=== PATIENT | male | born 1995 | race African-American/Black ===

== ENCOUNTER 2020-07-01 07:07 | Outpatient (REF) | payer OTHER, SELFPAY | END 2020-07-01 07:08 | disposition home or self-care (01) | LOC: HO.LAB 07:07 | PROVIDERS: Visit Provider Internal Medicine | DX: Z20.828 Contact with and (suspected) exposure to other viral communicable diseases (principal) | CPT/HCPCS: C9803; U0003 ==

== ENCOUNTER 2020-10-04 16:20 | Inpatient (IN) | payer OTHER, SELFPAY ==
[2020-10-04 16:28] VITALS: BP 145/80; PULSE 92; RESP 20; TEMP 36.3; O2SAT 97; BMI 37.5
[2020-10-04 16:45] LABS: Glucose, Whole Blood 409 mg/dL (60-115)
[2020-10-04 18:14] LABS: MANUAL DIFF FLAG NO
[2020-10-04 18:16] LABS: Basophils Percent Auto 0.5 % (0-2); Eosinophils Percent Auto 0.5 % (0-4); Hematocrit 47.4 % (42-52); Hemoglobin 16.5 g/dl (14.0-18.0); Imm Gran Abs Auto 0.04 X10*3/uL (0.00-0.03); Imm Gran Pct Auto 0.5 % (0.0-0.4); Lymphocytes Absolute Auto 1.3 X10*3/uL (1.2-4.9); Lymphocytes Percent Auto 15.9 % (20-40); Mean Corpuscular HGB Conc 34.8 g/dl (31.0-36.0); Mean Corpuscular Hemoglobin 26.5 pg (27.0-33.0); Mean Corpuscular Volume 76.2 fL (80-98); Mean Platelet Volume 11.1 fL (9.4-12.4); Monocytes Absolute Auto 0.7 X10*3/uL (0.1-1.2); Monocytes Percent Auto 8.4 % (2-11); Neutrophils Absolute Auto 6.2 X10*3/uL (2.0-8.3); Neutrophils Percent Auto 74.2 % (45-73); Platelet Count 326 X10*3/uL (160-400); Red Blood Count 6.22 X10*6/uL (4.60-5.80); Red Cell Distribution Width 12.9 % (11.0-16.0); White Blood Count 8.3 X10*3/uL (4.8-10.8)
[2020-10-04 18:21] LABS: Glucose, Whole Blood 379 mg/dL (60-115)
--- NOTE | 2020-10-04 18:37 | ED_ITS ---
HPI - General Adult General Chief complaint: Weakness <GRAHAM Iverson Last Filed: 10/05/20 02:23> Stated complaint: hbs, back pain,weakness <GRAHAM Iverson Last Filed: 10/05/20 02:23> Time Seen by Provider: 10/04/20 18:20 <GRAHAM Iverson Last Filed: 10/05/20 02:23> Source: patient <GRAHAM Iverson Last Filed: 10/05/20 02:23> Mode of arrival: ambulatory <GRAHAM Iverson Last Filed: 10/05/20 02:23> Limitations: no limitations <GRAHAM Iverson Last Filed: 10/05/20 02:23> History of Present Illness HPI narrative: Patient presents to the ED for dizziness described as fatigue/weakness, increased thirst, increased urination, and back pain since yesterday. Patient's grandmother checked his fingerstick and found to have glucose over 400. Patient has no known history of diabetes. Patient's grandmother states his grandparents have diabetes. <GRAHAM Iverson - Last Filed: 10/05/20 02:23> Related Data Allergies/adverse reactions: Allergies Allergy/AdvReac Type Severity Reaction Status Date / Time shellfish derived Allergy Intermediate RASH Verified 10/05/20 00:24 [SHELLFISH DERIVED] <GRAHAM Iverson - Last Filed: 10/05/20 02:23> Review of Systems Review of Systems: Yes all other systems are reviewed and are negative <GRAHAM Iverson Last Filed: 10/05/20 02:23> Constitutional: Constitutional: Reports as per HPI, Reports no additional constitutional complaints and Reports fatigue <GRAHAM Iverson Last Filed: 10/05/20 02:23> Eyes: Eyes: Reports as per HPI and Reports no additional eye complaints <GRAHAM Iverson Last Filed: 10/05/20 02:23> ENT: Reports system reviewed and no additional complaints, except as documented and Reports as per HPI <GRAHAM Iverson Last Filed: 10/05/20 02:23> Cardiovascular: Cardiovascular: Reports as per HPI and Reports no additional cardiovascular complaints <GRAHAM Iverson - Last Filed: 10/05/20 02:23> Respiratory: Respiratory: Reports as per HPI and Reports no additional respiratory complaints <GRAHAM Iverson - Last Filed: 10/05/20 02:23> Gastrointestinal: Gastrointestinal: Reports as per HPI and Reports no additional gastrointestinal complaints <GRAHAM Iverson - Last Filed: 10/05/20 02:23> Comments: Increased thirst <GRAHAM Iverson - Last Filed: 10/05/20 02:23> Genitourinary: Genitourinary: Reports no additional male genitourinary complaints and Reports as per HPI <GRAHAM Iverson - Last Filed: 10/05/20 02:23> Comments: Increased urinary frequency <GRAHAM Iverson - Last Filed: 10/05/20 02:23> Musculoskeletal: Musculoskeletal: Reports no additional musculoskeletal complaints and Reports as per HPI <GRAHAM Iverson Last Filed: 10/05/20 02:23> Neurologic: Reports system reviewed and no additional complaints, except as documented and Reports as per HPI <GRAHAM Iverson Last Filed: 10/05/20 02:23> Psychiatric: Psychiatric: Reports no additional psychiatric complaints and Reports as per HPI <GRAHAM Iverson - Last Filed: 10/05/20 02:23> Endocrine: Endocrine: Reports fatigue <GRHAAM Iverson - Last Filed: 10/05/20 02:23> [facility] Past Medical History Medical History: Medical History (Updated 10/05/20 @ 02:22 by GRAHAM Iverson) Asthma No known health problems <GRAHAM Iverson - Last Filed: 10/05/20 02:23> Social History Social History: Social History Advance Directives: No Advance Directives Information Provided: No <GRAHAM Iverson Last Filed: 10/05/20 02:23> Physical Exam Vital Signs: Vital Signs: Last Vital Signs Temp 97.5 F 10/05/20 04:09 Pulse 67 10/05/20 06:06 Resp 16 10/05/20 06:06 BP 130/49 L 10/05/20 06:06 Pulse Ox 97 10/05/20 06:06 Body Mass Index 37.5 <GRAHAM Iverson - Last Filed: 10/05/20 02:23> Vital Signs: Last Vital Signs Temp 97.5 F 10/05/20 04:09 Pulse 67 10/05/20 06:06 Resp 16 10/05/20 06:06 BP 130/49 L 10/05/20 06:06 Pulse Ox 97 10/05/20 06:06 Body Mass Index 37.5 <Azalea Jones MD - Last Filed: 10/05/20 06:35> Const: General: cooperative, healthy appearing, comfortable, no acute distress, well developed, alert, awake and Physically active <GRAHAM Iverson - Last Filed: 10/05/20 02:23> Orientation/consciousness: patient oriented x3 <GRAHAM Iverson Last Filed: 10/05/20 02:23> HENMT: Head: Yes normal to inspection, Yes No palpable skull fracture present, Yes normocephalic and Yes atraumatic <GRAHAM Iverson Last Filed: 10/05/20 02:23> Eyes: General: appearance normal, both eyes and all related structures <GRAHAM Iverson Last Filed: 10/05/20 02:23> Neck: Neck: Yes normal visual inspection, Yes full ROM, Yes no lymphadenopathy, Yes no meningeal signs, Yes trachea midline, Yes supple and No tender <GRAHAM Iverson Last Filed: 10/05/20 02:23> Chest: Chest palpation & inspection: normal inspection of the chest and normal palpation of entire chest wall <GRAHAM Iverson Last Filed: 10/05/20 02:23> Resp: Effort & Inspection: normal respiratory effort and able to speak in complete sentences <GRAHAM Iverson Last Filed: 10/05/20 02:23> Auscultation: clear to auscultation bilaterally <GRAHAM Iverson Last Filed: 10/05/20 02:23> Cardio: Jugular venous distension: no JVD <GRAHAM Iverson Last Filed: 10/05/20 02:23> Heart sounds: S1 normal heart sound present and S2 normal heart sound present <GRAHAM Iverson Last Filed: 10/05/20 02:23> GI: Inspection: Yes normal to inspection and No abdominal wall ecchymosis <GRAHAM Iverson Last Filed: 10/05/20 02:23> Palpation (GI): Soft to palpation, not firm, nontender, no guarding and not rigid <GRAHAM Iverson Last Filed: 10/05/20 02:23> : General: No CVA tenderness and Yes no CVA tenderness <GRAHAM Iverson Last Filed: 10/05/20 02:23> Back/Spine/Pelvis: Back: no CVA tenderness, No CVA tenderness and No back tenderness <GRAHAM Iverson - Last Filed: 10/05/20 02:23> Skin: General skin exam: no rashes or lesions noted and elasticity normal <GRAHAM Iverson Last Filed: 10/05/20 02:23> Neuro: General: patient oriented x3, no meningeal signs and CN's II-XI intact bilaterally <GRAHAM Iverson - Last Filed: 10/05/20 02:23> Cranial nerves: Yes CN's II-XII intact bilaterally <GRAHAM Iverson Last Filed: 10/05/20 02:23> Extrem: General: Yes normal to inspection and Yes full ROM <GRAHAM Iverson Last Filed: 10/05/20 02:23> Psych: Appearance: grossly normal, well kempt and not disheveled <GRAHAM Iverson Last Filed: 10/05/20 02:23> Course Course Course Narrative: Patient POC indicates new onset diabetes. Will have basic labs to see if patient is in DKA. Will hydrate. IV fluids. <GRAHAM Iverson Last Filed: 10/05/20 02:23> Reevaluation(s) Reevaluation #1: Initial chemistry shows patient was in DKA. Patient was given 4 L of IV fluids with insulin and repeat chemistry showed the patient was still in DKA. Spoke with hospitalist recommended patient be placed on insulin drip and to close the anion gap in the ER and then patient can go to the floor. Patient is not any distress. Insulin drip started at 6 units/hour <GRAHAM Iverson Last Filed: 10/05/20 02:23> Patient placed in physician observation because the patient needed more time for medication to work. At the time observation was started the patient's vital signs were stable, patient is alert and oriented, neuro: Nonfocal, CV RRR, lungs clear. Patient reports that the headache and dizziness that he presented with have resolved. <Azalea Jones MD - Last Filed: 10/05/20 06:35> Time: 03:45 <Azalea Jones MD - Last Filed: 10/05/20 06:35> Reevaluation #2: Case signed out to Dr. Jones to follow repeat CMP to see if anion gap close. Dr. Lindsey recommended two CMP with closed anion gaps before being admitted to [facility]. patient to be admitted to the hospital <GRAHAM Iverson - Last Filed: 10/05/20 02:23> The gap has closed, hospitalist was notified, will need to repeat lab work in 2 hours and demonstrate that the patient continues to improve. Sign-out given to Dr. Lawton. <Azalea Jones MD - Last Filed: 10/05/20 06:35> Time: 06:25 <Azalea Jones MD - Last Filed: 10/05/20 06:35> Medical Decision Making MDM Narrative Medical decision making narrative: New onset Diabetes. mild. DKA <GRAHMA Iverson - Last Filed: 10/05/20 02:23> Lab Data Result diagrams: : 10/04/20 18:08 10/05/20 05:45 <GRAHAM Iverson - Last Filed: 10/05/20 02:23> Labs: Lab Results 10/04/20 10/04/20 10/04/20 Range/Units 16:36 18:08 18:08 WBC 8.3 (4.8-10.8) X10*3/uL RBC 6.22 H (4.60-5.80) X10*6/uL Hgb 16.5 (14.0-18.0) g/dl Hct 47.4 (42-52) % MCV 76.2 L (80-98) fL MCH 26.5 L (27.0-33.0) pg MCHC 34.8 (31.0-36.0) g/dl RDW 12.9 (11.0-16.0) % Plt Count 326 (160-400) X10*3/uL MPV 11.1 (9.4-12.4) fL Immature Gran % (Auto) 0.5 H (0.0-0.4) % Neut % (Auto) 74.2 H (45-73) % Lymph % (Auto) 15.9 L (20-40) % [place] % (Auto) 8.4 (2-11) % Eos % (Auto) 0.5 (0-4) % Baso % (Auto) 0.5 (0-2) % Lymph # (Auto) 1.3 (1.2-4.9) X10*3/uL [place] # (Auto) 0.7 (0.1-1.2) X10*3/uL Eos # (Auto) 0.0 (0.0-0.4) X10*3/uL Baso # (Auto) 0.0 (0.0-0.2) X10*3/uL Abs Immat Gran (auto) 0.04 H (0.00-0.03) X10*3/uL Absolute Neuts (auto) 6.2 (2.0-8.3) X10*3/uL Absolute Nucleated RBC 0.000 (0.0-0.012) X10*3/uL Nucleated RBC % (auto) 0.0 (0.0-0.2) /100WBC Hold Purple Top SEE NOTE VBG pH (7.32-7.43) VBG pCO2 mmHg VBG pO2 mmHg VBG HCO3 (22-26) mmol/L VBG O2 Saturation % VBG Base Excess mmol/L Sodium (135-145) mmol/L Potassium (3.3-5.1) mmol/L Chloride (96-108) mmol/L Carbon Dioxide (22-29) mmol/L Anion Gap (12-20) BUN (9-16) mg/dL Creatinine (0.5-1.4) mg/dL Estim Creat Clear Calc Estimated GFR POC Glucose 409 H* (60-115) mg/dL Random Glucose (60-115) mg/dL Calcium (8.4-10.2) mg/dL Total Bilirubin (0.0-1.0) mg/dL AST (5-37) U/L ALT (0-40) U/L Alkaline Phosphatase (39-117) U/L Total Protein (6.5-8.0) g/dL Albumin (3.5-5.0) g/dL Urine Color Urine Appearance Urine pH (5.0-8.0) Ur Specific [place] (1.005-1.025) Urine Protein (NEG-TRACE) MG/DL Urine Glucose (UA) (NEG) MG/DL Urine Ketones (NEG) MG/DL Urine Blood (NEG) Urine Nitrite (NEG) Ur Leukocyte Esterase (NEG) Urine RBC (0) /HPF Urine WBC (0-4) /HPF Ur Squamous Epith Cells /LPF Urine Bacteria /LPF Hyaline Casts /LPF Granular Casts /LPF Urine Mucus /LPF Acetone, Qual (Negative) 10/04/20 10/04/20 10/04/20 Range/Units 18:17 18:54 18:54 WBC (4.8-10.8) X10*3/uL RBC (4.60-5.80) X10*6/uL Hgb (14.0-18.0) g/dl Hct (42-52) % MCV (80-98) fL MCH (27.0-33.0) pg MCHC (31.0-36.0) g/dl RDW (11.0-16.0) % Plt Count (160-400) X10*3/uL MPV (9.4-12.4) fL Immature Gran % (Auto) (0.0-0.4) % Neut % (Auto) (45-73) % Lymph % (Auto) (20-40) % [place] % (Auto) (2-11) % Eos % (Auto) (0-4) % Baso % (Auto) (0-2) % Lymph # (Auto) (1.2-4.9) X10*3/uL [place] # (Auto) (0.1-1.2) X10*3/uL Eos # (Auto) (0.0-0.4) X10*3/uL Baso # (Auto) (0.0-0.2) X10*3/uL Abs Immat Gran (auto) (0.00-0.03) X10*3/uL Absolute Neuts (auto) (2.0-8.3) X10*3/uL Absolute Nucleated RBC (0.0-0.012) X10*3/uL Nucleated RBC % (auto) (0.0-0.2) /100WBC Hold Purple Top VBG pH (7.32-7.43) VBG pCO2 mmHg VBG pO2 mmHg VBG HCO3 (22-26) mmol/L VBG O2 Saturation % VBG Base Excess mmol/L Sodium 128 L (135-145) mmol/L Potassium 4.1 (3.3-5.1) mmol/L Chloride 95 L (96-108) mmol/L Carbon Dioxide 11 L (22-29) mmol/L Anion Gap 26 H (12-20) BUN 13 (9-16) mg/dL Creatinine 1.47 H (0.5-1.4) mg/dL Estim Creat Clear Calc 115.2 Estimated GFR 59 POC Glucose 379 H* (60-115) mg/dL Random Glucose 337 H (60-115) mg/dL Calcium 8.2 L (8.4-10.2) mg/dL Total Bilirubin (0.0-1.0) mg/dL AST (5-37) U/L ALT (0-40) U/L Alkaline Phosphatase (39-117) U/L Total Protein (6.5-8.0) g/dL Albumin (3.5-5.0) g/dL Urine Color Urine Appearance Urine pH (5.0-8.0) Ur Specific [place] (1.005-1.025) Urine Protein (NEG-TRACE) MG/DL Urine Glucose (UA) (NEG) MG/DL Urine Ketones (NEG) MG/DL Urine Blood (NEG) Urine Nitrite (NEG) Ur Leukocyte Esterase (NEG) Urine RBC (0) /HPF Urine WBC (0-4) /HPF Ur Squamous Epith Cells /LPF Urine Bacteria /LPF Hyaline Casts /LPF Granular Casts /LPF Urine Mucus /LPF Acetone, Qual Moderate H (Negative) 10/04/20 10/04/20 10/04/20 Range/Units 19:52 20:04 20:07 WBC (4.8-10.8) X10*3/uL RBC (4.60-5.80) X10*6/uL Hgb (14.0-18.0) g/dl Hct (42-52) % MCV (80-98) fL MCH (27.0-33.0) pg MCHC (31.0-36.0) g/dl RDW (11.0-16.0) % Plt Count (160-400) X10*3/uL MPV (9.4-12.4) fL Immature Gran % (Auto) (0.0-0.4) % Neut % (Auto) (45-73) % Lymph % (Auto) (20-40) % [place] % (Auto) (2-11) % Eos % (Auto) (0-4) % Baso % (Auto) (0-2) % Lymph # (Auto) (1.2-4.9) X10*3/uL [place] # (Auto) (0.1-1.2) X10*3/uL Eos # (Auto) (0.0-0.4) X10*3/uL Baso # (Auto) (0.0-0.2) X10*3/uL Abs Immat Gran (auto) (0.00-0.03) X10*3/uL Absolute Neuts (auto) (2.0-8.3) X10*3/uL Absolute Nucleated RBC (0.0-0.012) X10*3/uL Nucleated RBC % (auto) (0.0-0.2) /100WBC Hold Purple Top VBG pH 7.22 L (7.32-7.43) VBG pCO2 25 mmHg VBG pO2 33 mmHg VBG HCO3 11 L (22-26) mmol/L VBG O2 Saturation 56.0 % VBG Base Excess -14.5 mmol/L Sodium (135-145) mmol/L Potassium (3.3-5.1) mmol/L Chloride (96-108) mmol/L Carbon Dioxide (22-29) mmol/L Anion Gap (12-20) BUN (9-16) mg/dL Creatinine (0.5-1.4) mg/dL Estim Creat Clear Calc Estimated GFR POC Glucose 312 H (60-115) mg/dL Random Glucose (60-115) mg/dL Calcium (8.4-10.2) mg/dL Total Bilirubin (0.0-1.0) mg/dL AST (5-37) U/L ALT (0-40) U/L Alkaline Phosphatase (39-117) U/L Total Protein (6.5-8.0) g/dL Albumin (3.5-5.0) g/dL Urine Color YELLOW Urine Appearance CLEAR Urine pH 5.5 (5.0-8.0) Ur Specific [place] >= 1.030 H (1.005-1.025) Urine Protein 2+ H (NEG-TRACE) MG/DL Urine Glucose (UA) 500 H (NEG) MG/DL Urine Ketones >=80 (NEG) MG/DL Urine Blood 1+ H (NEG) Urine Nitrite NEG (NEG) Ur Leukocyte Esterase NEG (NEG) Urine RBC 0-2 (0) /HPF Urine WBC 1-4 (0-4) /HPF Ur Squamous Epith Cells 1+ /LPF Urine Bacteria TRACE /LPF Hyaline Casts 5-9 /LPF Granular Casts 0-2 /LPF Urine Mucus 1+ /LPF Acetone, Qual (Negative) 10/04/20 10/04/20 10/04/20 Range/Units 20:51 22:07 22:07 WBC (4.8-10.8) X10*3/uL RBC (4.60-5.80) X10*6/uL Hgb (14.0-18.0) g/dl Hct (42-52) % MCV (80-98) fL MCH (27.0-33.0) pg MCHC (31.0-36.0) g/dl RDW (11.0-16.0) % Plt Count (160-400) X10*3/uL MPV (9.4-12.4) fL Immature Gran % (Auto) (0.0-0.4) % Neut % (Auto) (45-73) % Lymph % (Auto) (20-40) % [place] % (Auto) (2-11) % Eos % (Auto) (0-4) % Baso % (Auto) (0-2) % Lymph # (Auto) (1.2-4.9) X10*3/uL [place] # (Auto) (0.1-1.2) X10*3/uL Eos # (Auto) (0.0-0.4) X10*3/uL Baso # (Auto) (0.0-0.2) X10*3/uL Abs Immat Gran (auto) (0.00-0.03) X10*3/uL Absolute Neuts (auto) (2.0-8.3) X10*3/uL Absolute Nucleated RBC (0.0-0.012) X10*3/uL Nucleated RBC % (auto) (0.0-0.2) /100WBC Hold Purple Top VBG pH (7.32-7.43) VBG pCO2 mmHg VBG pO2 mmHg VBG HCO3 (22-26) mmol/L VBG O2 Saturation % VBG Base Excess mmol/L Sodium 131 L (135-145) mmol/L Potassium 4.6 (3.3-5.1) mmol/L Chloride 102 (96-108) mmol/L Carbon Dioxide 10 L* (22-29) mmol/L Anion Gap 24 H (12-20) BUN 12 (9-16) mg/dL Creatinine 1.34 (0.5-1.4) mg/dL Estim Creat Clear Calc 126.4 Estimated GFR > 60 POC Glucose 279 H (60-115) mg/dL Random Glucose 279 H (60-115) mg/dL Calcium 7.4 L D (8.4-10.2) mg/dL Total Bilirubin (0.0-1.0) mg/dL AST (5-37) U/L ALT (0-40) U/L Alkaline Phosphatase (39-117) U/L Total Protein (6.5-8.0) g/dL Albumin (3.5-5.0) g/dL Urine Color Urine Appearance Urine pH (5.0-8.0) Ur Specific [place] (1.005-1.025) Urine Protein (NEG-TRACE) MG/DL Urine Glucose (UA) (NEG) MG/DL Urine Ketones (NEG) MG/DL Urine Blood (NEG) Urine Nitrite (NEG) Ur Leukocyte Esterase (NEG) Urine RBC (0) /HPF Urine WBC (0-4) /HPF Ur Squamous Epith Cells /LPF Urine Bacteria /LPF Hyaline Casts /LPF Granular Casts /LPF Urine Mucus /LPF Acetone, Qual Moderate H (Negative) 10/05/20 10/05/20 10/05/20 Range/Units 00:42 01:46 02:21 WBC (4.8-10.8) X10*3/uL RBC (4.60-5.80) X10*6/uL Hgb (14.0-18.0) g/dl Hct (42-52) % MCV (80-98) fL MCH (27.0-33.0) pg MCHC (31.0-36.0) g/dl RDW (11.0-16.0) % Plt Count (160-400) X10*3/uL MPV (9.4-12.4) fL Immature Gran % (Auto) (0.0-0.4) % Neut % (Auto) (45-73) % Lymph % (Auto) (20-40) % [place] % (Auto) (2-11) % Eos % (Auto) (0-4) % Baso % (Auto) (0-2) % Lymph # (Auto) (1.2-4.9) X10*3/uL [place] # (Auto) (0.1-1.2) X10*3/uL Eos # (Auto) (0.0-0.4) X10*3/uL Baso # (Auto) (0.0-0.2) X10*3/uL Abs Immat Gran (auto) (0.00-0.03) X10*3/uL Absolute Neuts (auto) (2.0-8.3) X10*3/uL Absolute Nucleated RBC (0.0-0.012) X10*3/uL Nucleated RBC % (auto) (0.0-0.2) /100WBC Hold Purple Top VBG pH (7.32-7.43) VBG pCO2 mmHg VBG pO2 mmHg VBG HCO3 (22-26) mmol/L VBG O2 Saturation % VBG Base Excess mmol/L Sodium 133 L (135-145) mmol/L Potassium 3.9 (3.3-5.1) mmol/L Chloride 104 (96-108) mmol/L Carbon Dioxide 10 L* (22-29) mmol/L Anion Gap 23 H (12-20) BUN 10 (9-16) mg/dL Creatinine 1.36 (0.5-1.4) mg/dL Estim Creat Clear Calc 124.5 Estimated GFR > 60 POC Glucose 254 H 252 H (60-115) mg/dL Random Glucose 269 H (60-115) mg/dL Calcium 7.5 L (8.4-10.2) mg/dL Total Bilirubin 0.8 (0.0-1.0) mg/dL AST 88 H (5-37) U/L ALT 79 H (0-40) U/L Alkaline Phosphatase 113 (39-117) U/L Total Protein 6.6 (6.5-8.0) g/dL Albumin 3.6 (3.5-5.0) g/dL Urine Color Urine Appearance Urine pH (5.0-8.0) Ur Specific [place] (1.005-1.025) Urine Protein (NEG-TRACE) MG/DL Urine Glucose (UA) (NEG) MG/DL Urine Ketones (NEG) MG/DL Urine Blood (NEG) Urine Nitrite (NEG) Ur Leukocyte Esterase (NEG) Urine RBC (0) /HPF Urine WBC (0-4) /HPF Ur Squamous Epith Cells /LPF Urine Bacteria /LPF Hyaline Casts /LPF Granular Casts /LPF Urine Mucus /LPF Acetone, Qual (Negative) 10/05/20 10/05/20 10/05/20 Range/Units 03:21 03:22 04:26 WBC (4.8-10.8) X10*3/uL RBC (4.60-5.80) X10*6/uL Hgb (14.0-18.0) g/dl Hct (42-52) % MCV (80-98) fL MCH (27.0-33.0) pg MCHC (31.0-36.0) g/dl RDW (11.0-16.0) % Plt Count (160-400) X10*3/uL MPV (9.4-12.4) fL Immature Gran % (Auto) (0.0-0.4) % Neut % (Auto) (45-73) % Lymph % (Auto) (20-40) % [place] % (Auto) (2-11) % Eos % (Auto) (0-4) % Baso % (Auto) (0-2) % Lymph # (Auto) (1.2-4.9) X10*3/uL [place] # (Auto) (0.1-1.2) X10*3/uL Eos # (Auto) (0.0-0.4) X10*3/uL Baso # (Auto) (0.0-0.2) X10*3/uL Abs Immat Gran (auto) (0.00-0.03) X10*3/uL Absolute Neuts (auto) (2.0-8.3) X10*3/uL Absolute Nucleated RBC (0.0-0.012) X10*3/uL Nucleated RBC % (auto) (0.0-0.2) /100WBC Hold Purple Top VBG pH (7.32-7.43) VBG pCO2 mmHg VBG pO2 mmHg VBG HCO3 (22-26) mmol/L VBG O2 Saturation % VBG Base Excess mmol/L Sodium 132 L (135-145) mmol/L Potassium 3.5 (3.3-5.1) mmol/L Chloride 104 (96-108) mmol/L Carbon Dioxide 10 L* (22-29) mmol/L Anion Gap 22 H (12-20) BUN 10 (9-16) mg/dL Creatinine 1.32 (0.5-1.4) mg/dL Estim Creat Clear Calc 128.3 Estimated GFR > 60 POC Glucose 232 H 254 H (60-115) mg/dL Random Glucose 251 H (60-115) mg/dL Calcium 7.7 L (8.4-10.2) mg/dL Total Bilirubin (0.0-1.0) mg/dL AST (5-37) U/L ALT (0-40) U/L Alkaline Phosphatase (39-117) U/L Total Protein (6.5-8.0) g/dL Albumin (3.5-5.0) g/dL Urine Color Urine Appearance Urine pH (5.0-8.0) Ur Specific [place] (1.005-1.025) Urine Protein (NEG-TRACE) MG/DL Urine Glucose (UA) (NEG) MG/DL Urine Ketones (NEG) MG/DL Urine Blood (NEG) Urine Nitrite (NEG) Ur Leukocyte Esterase (NEG) Urine RBC (0) /HPF Urine WBC (0-4) /HPF Ur Squamous Epith Cells /LPF Urine Bacteria /LPF Hyaline Casts /LPF Granular Casts /LPF Urine Mucus /LPF Acetone, Qual (Negative) 10/05/20 10/05/20 Range/Units 05:38 05:45 WBC (4.8-10.8) X10*3/uL RBC (4.60-5.80) X10*6/uL Hgb (14.0-18.0) g/dl Hct (42-52) % MCV (80-98) fL MCH (27.0-33.0) pg MCHC (31.0-36.0) g/dl RDW (11.0-16.0) % Plt Count (160-400) X10*3/uL MPV (9.4-12.4) fL Immature Gran % (Auto) (0.0-0.4) % Neut % (Auto) (45-73) % Lymph % (Auto) (20-40) % [place] % (Auto) (2-11) % Eos % (Auto) (0-4) % Baso % (Auto) (0-2) % Lymph # (Auto) (1.2-4.9) X10*3/uL [place] # (Auto) (0.1-1.2) X10*3/uL Eos # (Auto) (0.0-0.4) X10*3/uL Baso # (Auto) (0.0-0.2) X10*3/uL Abs Immat Gran (auto) (0.00-0.03) X10*3/uL Absolute Neuts (auto) (2.0-8.3) X10*3/uL Absolute Nucleated RBC (0.0-0.012) X10*3/uL Nucleated RBC % (auto) (0.0-0.2) /100WBC Hold Purple Top VBG pH (7.32-7.43) VBG pCO2 mmHg VBG pO2 mmHg VBG HCO3 (22-26) mmol/L VBG O2 Saturation % VBG Base Excess mmol/L Sodium 132 L (135-145) mmol/L Potassium 3.3 (3.3-5.1) mmol/L Chloride 107 (96-108) mmol/L Carbon Dioxide 9 L* (22-29) mmol/L Anion Gap 19 (12-20) BUN 9 (9-16) mg/dL Creatinine 1.16 (0.5-1.4) mg/dL Estim Creat Clear Calc 146.0 Estimated GFR > 60 POC Glucose 207 H (60-115) mg/dL Random Glucose 214 H (60-115) mg/dL Calcium 7.2 L D (8.4-10.2) mg/dL Total Bilirubin (0.0-1.0) mg/dL AST (5-37) U/L ALT (0-40) U/L Alkaline Phosphatase (39-117) U/L Total Protein (6.5-8.0) g/dL Albumin (3.5-5.0) g/dL Urine Color Urine Appearance Urine pH (5.0-8.0) Ur Specific [place] (1.005-1.025) Urine Protein (NEG-TRACE) MG/DL Urine Glucose (UA) (NEG) MG/DL Urine Ketones (NEG) MG/DL Urine Blood (NEG) Urine Nitrite (NEG) Ur Leukocyte Esterase (NEG) Urine RBC (0) /HPF Urine WBC (0-4) /HPF Ur Squamous Epith Cells /LPF Urine Bacteria /LPF Hyaline Casts /LPF Granular Casts /LPF Urine Mucus /LPF Acetone, Qual (Negative) <GRAHAM Iverson - Last Filed: 10/05/20 02:23> Lab Results 10/04/20 10/04/20 10/04/20 Range/Units 16:36 18:08 18:08 WBC 8.3 (4.8-10.8) X10*3/uL RBC 6.22 H (4.60-5.80) X10*6/uL Hgb 16.5 (14.0-18.0) g/dl Hct 47.4 (42-52) % MCV 76.2 L (80-98) fL MCH 26.5 L (27.0-33.0) pg MCHC 34.8 (31.0-36.0) g/dl RDW 12.9 (11.0-16.0) % Plt Count 326 (160-400) X10*3/uL MPV 11.1 (9.4-12.4) fL Immature Gran % (Auto) 0.5 H (0.0-0.4) % Neut % (Auto) 74.2 H (45-73) % Lymph % (Auto) 15.9 L (20-40) % [place] % (Auto) 8.4 (2-11) % Eos % (Auto) 0.5 (0-4) % Baso % (Auto) 0.5 (0-2) % Lymph # (Auto) 1.3 (1.2-4.9) X10*3/uL [place] # (Auto) 0.7 (0.1-1.2) X10*3/uL Eos # (Auto) 0.0 (0.0-0.4) X10*3/uL Baso # (Auto) 0.0 (0.0-0.2) X10*3/uL Abs Immat Gran (auto) 0.04 H (0.00-0.03) X10*3/uL Absolute Neuts (auto) 6.2 (2.0-8.3) X10*3/uL Absolute Nucleated RBC 0.000 (0.0-0.012) X10*3/uL Nucleated RBC % (auto) 0.0 (0.0-0.2) /100WBC Hold Purple Top SEE NOTE VBG pH (7.32-7.43) VBG pCO2 mmHg VBG pO2 mmHg VBG HCO3 (22-26) mmol/L VBG O2 Saturation % VBG Base Excess mmol/L Sodium (135-145) mmol/L Potassium (3.3-5.1) mmol/L Chloride (96-108) mmol/L Carbon Dioxide (22-29) mmol/L Anion Gap (12-20) BUN (9-16) mg/dL Creatinine (0.5-1.4) mg/dL Estim Creat Clear Calc Estimated GFR POC Glucose 409 H* (60-115) mg/dL Random Glucose (60-115) mg/dL Calcium (8.4-10.2) mg/dL Total Bilirubin (0.0-1.0) mg/dL AST (5-37) U/L ALT (0-40) U/L Alkaline Phosphatase (39-117) U/L Total Protein (6.5-8.0) g/dL Albumin (3.5-5.0) g/dL Urine Color Urine Appearance Urine pH (5.0-8.0) Ur Specific [place] (1.005-1.025) Urine Protein (NEG-TRACE) MG/DL Urine Glucose (UA) (NEG) MG/DL Urine Ketones (NEG) MG/DL Urine Blood (NEG) Urine Nitrite (NEG) Ur Leukocyte Esterase (NEG) Urine RBC (0) /HPF Urine WBC (0-4) /HPF Ur Squamous Epith Cells /LPF Urine Bacteria /LPF Hyaline Casts /LPF Granular Casts /LPF Urine Mucus /LPF Acetone, Qual (Negative) 10/04/20 10/04/20 10/04/20 Range/Units 18:17 18:54 18:54 WBC (4.8-10.8) X10*3/uL RBC (4.60-5.80) X10*6/uL Hgb (14.0-18.0) g/dl Hct (42-52) % MCV (80-98) fL MCH (27.0-33.0) pg MCHC (31.0-36.0) g/dl RDW (11.0-16.0) % Plt Count (160-400) X10*3/uL MPV (9.4-12.4) fL Immature Gran % (Auto) (0.0-0.4) % Neut % (Auto) (45-73) % Lymph % (Auto) (20-40) % [place] % (Auto) (2-11) % Eos % (Auto) (0-4) % Baso % (Auto) (0-2) % Lymph # (Auto) (1.2-4.9) X10*3/uL [place] # (Auto) (0.1-1.2) X10*3/uL Eos # (Auto) (0.0-0.4) X10*3/uL Baso # (Auto) (0.0-0.2) X10*3/uL Abs Immat Gran (auto) (0.00-0.03) X10*3/uL Absolute Neuts (auto) (2.0-8.3) X10*3/uL Absolute Nucleated RBC (0.0-0.012) X10*3/uL Nucleated RBC % (auto) (0.0-0.2) /100WBC Hold Purple Top VBG pH (7.32-7.43) VBG pCO2 mmHg VBG pO2 mmHg VBG HCO3 (22-26) mmol/L VBG O2 Saturation % VBG Base Excess mmol/L Sodium 128 L (135-145) mmol/L Potassium 4.1 (3.3-5.1) mmol/L Chloride 95 L (96-108) mmol/L Carbon Dioxide 11 L (22-29) mmol/L Anion Gap 26 H (12-20) BUN 13 (9-16) mg/dL Creatinine 1.47 H (0.5-1.4) mg/dL Estim Creat Clear Calc 115.2 Estimated GFR 59 POC Glucose 379 H* (60-115) mg/dL Random Glucose 337 H (60-115) mg/dL Calcium 8.2 L (8.4-10.2) mg/dL Total Bilirubin (0.0-1.0) mg/dL AST (5-37) U/L ALT (0-40) U/L Alkaline Phosphatase (39-117) U/L Total Protein (6.5-8.0) g/dL Albumin (3.5-5.0) g/dL Urine Color Urine Appearance Urine pH (5.0-8.0) Ur Specific [place] (1.005-1.025) Urine Protein (NEG-TRACE) MG/DL Urine Glucose (UA) (NEG) MG/DL Urine Ketones (NEG) MG/DL Urine Blood (NEG) Urine Nitrite (NEG) Ur Leukocyte Esterase (NEG) Urine RBC (0) /HPF Urine WBC (0-4) /HPF Ur Squamous Epith Cells /LPF Urine Bacteria /LPF Hyaline Casts /LPF Granular Casts /LPF Urine Mucus /LPF Acetone, Qual Moderate H (Negative) 10/04/20 10/04/20 10/04/20 Range/Units 19:52 20:04 20:07 WBC (4.8-10.8) X10*3/uL RBC (4.60-5.80) X10*6/uL Hgb (14.0-18.0) g/dl Hct (42-52) % MCV (80-98) fL MCH (27.0-33.0) pg MCHC (31.0-36.0) g/dl RDW (11.0-16.0) % Plt Count (160-400) X10*3/uL MPV (9.4-12.4) fL Immature Gran % (Auto) (0.0-0.4) % Neut % (Auto) (45-73) % Lymph % (Auto) (20-40) % [place] % (Auto) (2-11) % Eos % (Auto) (0-4) % Baso % (Auto) (0-2) % Lymph # (Auto) (1.2-4.9) X10*3/uL [place] # (Auto) (0.1-1.2) X10*3/uL Eos # (Auto) (0.0-0.4) X10*3/uL Baso # (Auto) (0.0-0.2) X10*3/uL Abs Immat Gran (auto) (0.00-0.03) X10*3/uL Absolute Neuts (auto) (2.0-8.3) X10*3/uL Absolute Nucleated RBC (0.0-0.012) X10*3/uL Nucleated RBC % (auto) (0.0-0.2) /100WBC Hold Purple Top VBG pH 7.22 L (7.32-7.43) VBG pCO2 25 mmHg VBG pO2 33 mmHg VBG HCO3 11 L (22-26) mmol/L VBG O2 Saturation 56.0 % VBG Base Excess -14.5 mmol/L Sodium (135-145) mmol/L Potassium (3.3-5.1) mmol/L Chloride (96-108) mmol/L Carbon Dioxide (22-29) mmol/L Anion Gap (12-20) BUN (9-16) mg/dL Creatinine (0.5-1.4) mg/dL Estim Creat Clear Calc Estimated GFR POC Glucose 312 H (60-115) mg/dL Random Glucose (60-115) mg/dL Calcium (8.4-10.2) mg/dL Total Bilirubin (0.0-1.0) mg/dL AST (5-37) U/L ALT (0-40) U/L Alkaline Phosphatase (39-117) U/L Total Protein (6.5-8.0) g/dL Albumin (3.5-5.0) g/dL Urine Color YELLOW Urine Appearance CLEAR Urine pH 5.5 (5.0-8.0) Ur Specific [place] >= 1.030 H (1.005-1.025) Urine Protein 2+ H (NEG-TRACE) MG/DL Urine Glucose (UA) 500 H (NEG) MG/DL Urine Ketones >=80 (NEG) MG/DL Urine Blood 1+ H (NEG) Urine Nitrite NEG (NEG) Ur Leukocyte Esterase NEG (NEG) Urine RBC 0-2 (0) /HPF Urine WBC 1-4 (0-4) /HPF Ur Squamous Epith Cells 1+ /LPF Urine Bacteria TRACE /LPF Hyaline Casts 5-9 /LPF Granular Casts 0-2 /LPF Urine Mucus 1+ /LPF Acetone, Qual (Negative) 10/04/20 10/04/20 10/04/20 Range/Units 20:51 22:07 22:07 WBC (4.8-10.8) X10*3/uL RBC (4.60-5.80) X10*6/uL Hgb (14.0-18.0) g/dl Hct (42-52) % MCV (80-98) fL MCH (27.0-33.0) pg MCHC (31.0-36.0) g/dl RDW (11.0-16.0) % Plt Count (160-400) X10*3/uL MPV (9.4-12.4) fL Immature Gran % (Auto) (0.0-0.4) % Neut % (Auto) (45-73) % Lymph % (Auto) (20-40) % [place] % (Auto) (2-11) % Eos % (Auto) (0-4) % Baso % (Auto) (0-2) % Lymph # (Auto) (1.2-4.9) X10*3/uL [place] # (Auto) (0.1-1.2) X10*3/uL Eos # (Auto) (0.0-0.4) X10*3/uL Baso # (Auto) (0.0-0.2) X10*3/uL Abs Immat Gran (auto) (0.00-0.03) X10*3/uL Absolute Neuts (auto) (2.0-8.3) X10*3/uL Absolute Nucleated RBC (0.0-0.012) X10*3/uL Nucleated RBC % (auto) (0.0-0.2) /100WBC Hold Purple Top VBG pH (7.32-7.43) VBG pCO2 mmHg VBG pO2 mmHg VBG HCO3 (22-26) mmol/L VBG O2 Saturation % VBG Base Excess mmol/L Sodium 131 L (135-145) mmol/L Potassium 4.6 (3.3-5.1) mmol/L Chloride 102 (96-108) mmol/L Carbon Dioxide 10 L* (22-29) mmol/L Anion Gap 24 H (12-20) BUN 12 (9-16) mg/dL Creatinine 1.34 (0.5-1.4) mg/dL Estim Creat Clear Calc 126.4 Estimated GFR > 60 POC Glucose 279 H (60-115) mg/dL Random Glucose 279 H (60-115) mg/dL Calcium 7.4 L D (8.4-10.2) mg/dL Total Bilirubin (0.0-1.0) mg/dL AST (5-37) U/L ALT (0-40) U/L Alkaline Phosphatase (39-117) U/L Total Protein (6.5-8.0) g/dL Albumin (3.5-5.0) g/dL Urine Color Urine Appearance Urine pH (5.0-8.0) Ur Specific [place] (1.005-1.025) Urine Protein (NEG-TRACE) MG/DL Urine Glucose (UA) (NEG) MG/DL Urine Ketones (NEG) MG/DL Urine Blood (NEG) Urine Nitrite (NEG) Ur Leukocyte Esterase (NEG) Urine RBC (0) /HPF Urine WBC (0-4) /HPF Ur Squamous Epith Cells /LPF Urine Bacteria /LPF Hyaline Casts /LPF Granular Casts /LPF Urine Mucus /LPF Acetone, Qual Moderate H (Negative) 10/05/20 10/05/20 10/05/20 Range/Units 00:42 01:46 02:21 WBC (4.8-10.8) X10*3/uL RBC (4.60-5.80) X10*6/uL Hgb (14.0-18.0) g/dl Hct (42-52) % MCV (80-98) fL MCH (27.0-33.0) pg MCHC (31.0-36.0) g/dl RDW (11.0-16.0) % Plt Count (160-400) X10*3/uL MPV (9.4-12.4) fL Immature Gran % (Auto) (0.0-0.4) % Neut % (Auto) (45-73) % Lymph % (Auto) (20-40) % [place] % (Auto) (2-11) % Eos % (Auto) (0-4) % Baso % (Auto) (0-2) % Lymph # (Auto) (1.2-4.9) X10*3/uL [place] # (Auto) (0.1-1.2) X10*3/uL Eos # (Auto) (0.0-0.4) X10*3/uL Baso # (Auto) (0.0-0.2) X10*3/uL Abs Immat Gran (auto) (0.00-0.03) X10*3/uL Absolute Neuts (auto) (2.0-8.3) X10*3/uL Absolute Nucleated RBC (0.0-0.012) X10*3/uL Nucleated RBC % (auto) (0.0-0.2) /100WBC Hold Purple Top VBG pH (7.32-7.43) VBG pCO2 mmHg VBG pO2 mmHg VBG HCO3 (22-26) mmol/L VBG O2 Saturation % VBG Base Excess mmol/L Sodium 133 L (135-145) mmol/L Potassium 3.9 (3.3-5.1) mmol/L Chloride 104 (96-108) mmol/L Carbon Dioxide 10 L* (22-29) mmol/L Anion Gap 23 H (12-20) BUN 10 (9-16) mg/dL Creatinine 1.36 (0.5-1.4) mg/dL Estim Creat Clear Calc 124.5 Estimated GFR > 60 POC Glucose 254 H 252 H (60-115) mg/dL Random Glucose 269 H (60-115) mg/dL Calcium 7.5 L (8.4-10.2) mg/dL Total Bilirubin 0.8 (0.0-1.0) mg/dL AST 88 H (5-37) U/L ALT 79 H (0-40) U/L Alkaline Phosphatase 113 (39-117) U/L Total Protein 6.6 (6.5-8.0) g/dL Albumin 3.6 (3.5-5.0) g/dL Urine Color Urine Appearance Urine pH (5.0-8.0) Ur Specific [place] (1.005-1.025) Urine Protein (NEG-TRACE) MG/DL Urine Glucose (UA) (NEG) MG/DL Urine Ketones (NEG) MG/DL Urine Blood (NEG) Urine Nitrite (NEG) Ur Leukocyte Esterase (NEG) Urine RBC (0) /HPF Urine WBC (0-4) /HPF Ur Squamous Epith Cells /LPF Urine Bacteria /LPF Hyaline Casts /LPF Granular Casts /LPF Urine Mucus /LPF Acetone, Qual (Negative) 10/05/20 10/05/20 10/05/20 Range/Units 03:21 03:22 04:26 WBC (4.8-10.8) X10*3/uL RBC (4.60-5.80) X10*6/uL Hgb (14.0-18.0) g/dl Hct (42-52) % MCV (80-98) fL MCH (27.0-33.0) pg MCHC (31.0-36.0) g/dl RDW (11.0-16.0) % Plt Count (160-400) X10*3/uL MPV (9.4-12.4) fL Immature Gran % (Auto) (0.0-0.4) % Neut % (Auto) (45-73) % Lymph % (Auto) (20-40) % [place] % (Auto) (2-11) % Eos % (Auto) (0-4) % Baso % (Auto) (0-2) % Lymph # (Auto) (1.2-4.9) X10*3/uL [place] # (Auto) (0.1-1.2) X10*3/uL Eos # (Auto) (0.0-0.4) X10*3/uL Baso # (Auto) (0.0-0.2) X10*3/uL Abs Immat Gran (auto) (0.00-0.03) X10*3/uL Absolute Neuts (auto) (2.0-8.3) X10*3/uL Absolute Nucleated RBC (0.0-0.012) X10*3/uL Nucleated RBC % (auto) (0.0-0.2) /100WBC Hold Purple Top VBG pH (7.32-7.43) VBG pCO2 mmHg VBG pO2 mmHg VBG HCO3 (22-26) mmol/L VBG O2 Saturation % VBG Base Excess mmol/L Sodium 132 L (135-145) mmol/L Potassium 3.5 (3.3-5.1) mmol/L Chloride 104 (96-108) mmol/L Carbon Dioxide 10 L* (22-29) mmol/L Anion Gap 22 H (12-20) BUN 10 (9-16) mg/dL Creatinine 1.32 (0.5-1.4) mg/dL Estim Creat Clear Calc 128.3 Estimated GFR > 60 POC Glucose 232 H 254 H (60-115) mg/dL Random Glucose 251 H (60-115) mg/dL Calcium 7.7 L (8.4-10.2) mg/dL Total Bilirubin (0.0-1.0) mg/dL AST (5-37) U/L ALT (0-40) U/L Alkaline Phosphatase (39-117) U/L Total Protein (6.5-8.0) g/dL Albumin (3.5-5.0) g/dL Urine Color Urine Appearance Urine pH (5.0-8.0) Ur Specific [place] (1.005-1.025) Urine Protein (NEG-TRACE) MG/DL Urine Glucose (UA) (NEG) MG/DL Urine Ketones (NEG) MG/DL Urine Blood (NEG) Urine Nitrite (NEG) Ur Leukocyte Esterase (NEG) Urine RBC (0) /HPF Urine WBC (0-4) /HPF Ur Squamous Epith Cells /LPF Urine Bacteria /LPF Hyaline Casts /LPF Granular Casts /LPF Urine Mucus /LPF Acetone, Qual (Negative) 10/05/20 10/05/20 Range/Units 05:38 05:45 WBC (4.8-10.8) X10*3/uL RBC (4.60-5.80) X10*6/uL Hgb (14.0-18.0) g/dl Hct (42-52) % MCV (80-98) fL MCH (27.0-33.0) pg MCHC (31.0-36.0) g/dl RDW (11.0-16.0) % Plt Count (160-400) X10*3/uL MPV (9.4-12.4) fL Immature Gran % (Auto) (0.0-0.4) % Neut % (Auto) (45-73) % Lymph % (Auto) (20-40) % [place] % (Auto) (2-11) % Eos % (Auto) (0-4) % Baso % (Auto) (0-2) % Lymph # (Auto) (1.2-4.9) X10*3/uL [place] # (Auto) (0.1-1.2) X10*3/uL Eos # (Auto) (0.0-0.4) X10*3/uL Baso # (Auto) (0.0-0.2) X10*3/uL Abs Immat Gran (auto) (0.00-0.03) X10*3/uL Absolute Neuts (auto) (2.0-8.3) X10*3/uL Absolute Nucleated RBC (0.0-0.012) X10*3/uL Nucleated RBC % (auto) (0.0-0.2) /100WBC Hold Purple Top VBG pH (7.32-7.43) VBG pCO2 mmHg VBG pO2 mmHg VBG HCO3 (22-26) mmol/L VBG O2 Saturation % VBG Base Excess mmol/L Sodium 132 L (135-145) mmol/L Potassium 3.3 (3.3-5.1) mmol/L Chloride 107 (96-108) mmol/L Carbon Dioxide 9 L* (22-29) mmol/L Anion Gap 19 (12-20) BUN 9 (9-16) mg/dL Creatinine 1.16 (0.5-1.4) mg/dL Estim Creat Clear Calc 146.0 Estimated GFR > 60 POC Glucose 207 H (60-115) mg/dL Random Glucose 214 H (60-115) mg/dL Calcium 7.2 L D (8.4-10.2) mg/dL Total Bilirubin (0.0-1.0) mg/dL AST (5-37) U/L ALT (0-40) U/L Alkaline Phosphatase (39-117) U/L Total Protein (6.5-8.0) g/dL Albumin (3.5-5.0) g/dL Urine Color Urine Appearance Urine pH (5.0-8.0) Ur Specific [place] (1.005-1.025) Urine Protein (NEG-TRACE) MG/DL Urine Glucose (UA) (NEG) MG/DL Urine Ketones (NEG) MG/DL Urine Blood (NEG) Urine Nitrite (NEG) Ur Leukocyte Esterase (NEG) Urine RBC (0) /HPF Urine WBC (0-4) /HPF Ur Squamous Epith Cells /LPF Urine Bacteria /LPF Hyaline Casts /LPF Granular Casts /LPF Urine Mucus /LPF Acetone, Qual (Negative) <Azalea Jones MD - Last Filed: 10/05/20 06:35> Discharge Plan Discharge Clinical Impression: Hyperglycemia <GRAHAM Iverson - Last Filed: 10/05/20 02:23>
[2020-10-04 18:38] LABS: Calcium 8.2 mg/dL (8.4-10.2)
[2020-10-04 18:49] VITALS: BP 138/75; PULSE 100; RESP 16; TEMP 36.7; O2SAT 97
[2020-10-04] MEDS: 0.9 % Sodium Chloride 1,000 ML 999 ML IV ×4 (18:51→21:33)
[2020-10-04 19:21] LABS: Acetone, serum QL Moderate (Negative)
[2020-10-04 19:41] LABS: Anion Gap 26 (12-20); Blood Urea Nitrogen 13 mg/dL (9-16); Carbon Dioxide 11 mmol/L (22-29); Chloride 95 mmol/L (96-108); Creatinine Clr Calc Pharmacy 115.2; Estimated Glomerular Filt Rate 59; Glucose Random 337 mg/dL (60-115); Potassium 4.1 mmol/L (3.3-5.1); Sodium 128 mmol/L (135-145)
[2020-10-04 19:53] VITALS: BP 149/92; PULSE 93; RESP 16; TEMP 36.6; O2SAT 96
[2020-10-04 20:09] LABS: Glucose, Whole Blood 312 mg/dL (60-115)
[2020-10-04 20:13] LABS: Venous Blood Gas Refer to POC result
[2020-10-04 20:14] LABS: VBG Base Excess -14.5 mmol/L; VBG HCO3 11 mmol/L (22-26); VBG pCO2 25 mmHg; VBG pH 7.22 (7.32-7.43); VBG pO2 33 mmHg
[2020-10-04 20:15] LABS: Glucose Urine UA 500 MG/DL (NEG); Leukocyte Esterase Urine NEG (NEG); Nitrite Urine NEG (NEG); PH 5.5 (5.0-8.0); Specific Gravity - Urine >= 1.030 (1.005-1.025); Urine Blood 1+ (NEG); Urine Ketones >=80 MG/DL (NEG); Urine Protein 2+ MG/DL (NEG-TRACE)
[2020-10-04] MEDS: Insulin Regular, Human 100 UNIT/ML 3 ML VIAL 6 UNIT IVPUSH (20:17)
[2020-10-04 20:18] LABS: Appearance Urine CLEAR; Color Urine YELLOW
[2020-10-04 20:32] LABS: Bacteria Urine TRACE /LPF; Granular Casts Urine 0-2 /LPF; Mucus Urine 1+ /LPF; RBC Urine 0-2 /HPF (0); Squamous Epithelial Cell Urine 1+ /LPF
[2020-10-04 20:55] LABS: Glucose, Whole Blood 279 mg/dL (60-115)
[2020-10-04 22:00] VITALS: BP 114/55; PULSE 75; RESP 17; TEMP 36.9; O2SAT 99
[2020-10-04 22:25] LABS: Acetone, serum QL Moderate (Negative)
[2020-10-04 22:37] LABS: Anion Gap 24 (12-20); Blood Urea Nitrogen 12 mg/dL (9-16); Calcium 7.4 mg/dL (8.4-10.2); Carbon Dioxide 10 mmol/L (22-29); Chloride 102 mmol/L (96-108); Creatinine Clr Calc Pharmacy 126.4; Estimated Glomerular Filt Rate > 60; Glucose Random 279 mg/dL (60-115); Potassium 4.6 mmol/L (3.3-5.1); Sodium 131 mmol/L (135-145)
[2020-10-05] VITALS (17 sets, daily range): BP systolic 119–157; BP diastolic 49–92; PULSE 63–86; RESP 14–21; TEMP 36.4–36.6; O2SAT 95–98
[2020-10-05] MEDS: Insulin Regular/NS 100 UNIT/100 ML PLAST..BAG 6 UNIT IVCONT ×2 (00:53→08:51)
--- NOTE | 2020-10-05 00:53 | PC.NURSE ---
Insulin drip initiated at 6units/hr per MAR with rat farmer Caryn to bedside for verification of pump settings. RN could not scan insulin successfully as the information being typed into the requested isabel were not accepted. Pt's POC was 254; repeat POC to be obtained in 30 minutes as D5 .45% NS is to begin when POC less than 250.
--- NOTE | 2020-10-05 01:17 | PC.NURSE ---
CO-SIGNING FOR INSULIN DRIP, UNABLE TO SIGN OUT MEDICATION. CALLING [facility] AND SPEAKING TO [place] ABOUT THE ISSUE. PHARMACIST COULD NOT HELP WITH THE ISSUE, UNABLE TO SIGN OUT MEDICATION ON PHARMACY'S END WELL. WILL DISCUSS ISSUE WITH PHARMACIST IN HOUSE WHEN THEY COME IN THIS MORNING.
[2020-10-05 01:20] LABS: Glucose, Whole Blood 254 mg/dL (60-115)
[2020-10-05 01:52] LABS: Glucose, Whole Blood 252 mg/dL (60-115)
[2020-10-05] MEDS: Acetaminophen 325 MG TABLET 650 MG PO ×2 (02:25→23:00)
[2020-10-05 03:16] LABS: Alanine Aminotransferase 79 U/L (0-40); Albumin Level 3.6 g/dL (3.5-5.0); Alkaline Phosphatase 113 U/L (39-117); Anion Gap 23 (12-20); Aspartate Amino Transferase 88 U/L (5-37); Bilirubin Total 0.8 mg/dL (0.0-1.0); Blood Urea Nitrogen 10 mg/dL (9-16); Calcium 7.5 mg/dL (8.4-10.2); Carbon Dioxide 10 mmol/L (22-29); Chloride 104 mmol/L (96-108); Creatinine Clr Calc Pharmacy 124.5; Estimated Glomerular Filt Rate > 60; Glucose Random 269 mg/dL (60-115); Potassium 3.9 mmol/L (3.3-5.1); Sodium 133 mmol/L (135-145); Total Protein 6.6 g/dL (6.5-8.0)
[2020-10-05] MEDS: Dextrose 5 % and 0.45 % NaCl 1,000 ML 150 ML IVCONT ×2 (03:27→10:22)
[2020-10-05 03:36] LABS: Glucose, Whole Blood 232 mg/dL (60-115)
[2020-10-05] MEDS: 0.9 % Sodium Chloride 2,000 ML 999 ML IV (03:56)
[2020-10-05 04:24] LABS: Anion Gap 22 (12-20); Blood Urea Nitrogen 10 mg/dL (9-16); Calcium 7.7 mg/dL (8.4-10.2); Carbon Dioxide 10 mmol/L (22-29); Chloride 104 mmol/L (96-108); Creatinine Clr Calc Pharmacy 128.3; Estimated Glomerular Filt Rate > 60; Glucose Random 251 mg/dL (60-115); Potassium 3.5 mmol/L (3.3-5.1); Sodium 132 mmol/L (135-145)
[2020-10-05 04:34] LABS: Glucose, Whole Blood 254 mg/dL (60-115)
[2020-10-05 05:44] LABS: Glucose, Whole Blood 207 mg/dL (60-115)
[2020-10-05] MEDS: Potassium Chloride/H20 10 MEQ/100 ML PIGGYBACK 100 MEQ IV ×2 (05:58→07:18)
--- NOTE | 2020-10-05 05:58 | PC.NURSE ---
Per Dr Jones to increase the insulin drip to 16units per hour instead of what the protocol wants of 20.25units per hour. Patient is aware of the plan with the help of the science interpreter
[2020-10-05 06:30] LABS: Anion Gap 19 (12-20); Blood Urea Nitrogen 9 mg/dL (9-16); Calcium 7.2 mg/dL (8.4-10.2); Carbon Dioxide 9 mmol/L (22-29); Chloride 107 mmol/L (96-108); Estimated Glomerular Filt Rate > 60; Glucose Random 214 mg/dL (60-115); Potassium 3.3 mmol/L (3.3-5.1); Sodium 132 mmol/L (135-145)
[2020-10-05 06:52] LABS: Glucose, Whole Blood 178 mg/dL (60-115)
--- NOTE | 2020-10-05 07:09 | PC.NURSE ---
Dr Jones aware of the anion gap, at this time insulin drip is to still continue. Bedside report was given to ROSIE Mejia
[2020-10-05 07:11] LABS: Estimated Average Glucose 335 mg/dL; Hemoglobin A1c % 13.3 %
[2020-10-05 07:25] LABS: Magnesium 1.7 mg/dL (1.6-2.6)
--- NOTE | 2020-10-05 08:02 | PC.NURSE ---
pt is alert and oriented x3, verbal response and eye contact appropriate for setting. pt is peruvian speaking only. able to speak in full sentences and make needs known. lung sounds clear bilaterally. respiratory rate is even and effort is unlabored. pt denies feeling short of breath at this time. pt denies any pain at this time. heart rate and sounds normal. pt currently resting comfortably in bed with fluids and medications infusing, pts father is at the bedside. pt has no questions or concerns at this time, pt aware of plan of care. call pulliam in reach.
[2020-10-05 08:15] LABS: Glucose, Whole Blood 148 mg/dL (60-115)
[2020-10-05 08:16] LABS: Anion Gap 16 (12-20); Blood Urea Nitrogen 8 mg/dL (9-16); Calcium 7.2 mg/dL (8.4-10.2); Carbon Dioxide 11 mmol/L (22-29); Chloride 108 mmol/L (96-108); Estimated Glomerular Filt Rate > 60; Glucose Random 160 mg/dL (60-115); Potassium 3.3 mmol/L (3.3-5.1); Sodium 132 mmol/L (135-145)
--- NOTE | 2020-10-05 08:16 | PC.NURSE ---
poc 148, insulin infusion to be decreased from 16units/hr to 8units per hour per protocol, aware
--- NOTE | 2020-10-05 08:20 | PC.NURSE ---
POC 148, insulin infusion decreased to 6units/hr per protocol, aware
[2020-10-05 08:41] LABS: Glucose, Whole Blood 141 mg/dL (60-115)
--- NOTE | 2020-10-05 09:47 | PC.NURSE ---
pt ate 50% of breakfast. POC 155, aware
[2020-10-05 09:49] LABS: Glucose, Whole Blood 155 mg/dL (60-115)
--- NOTE | 2020-10-05 09:50 | PC.NURSE ---
pt to be kept on 6unit/hr insulin infusion per MD
[2020-10-05] MEDS: Acetaminophen 325 MG TABLET 975 MG PO (10:19)
[2020-10-05 10:58] LABS: Glucose, Whole Blood 189 mg/dL (60-115)
--- NOTE | 2020-10-05 11:17 | PC.NURSE ---
nurse to nurse report given to Reanna VELEZ in ICU
[2020-10-05 11:47] LABS: Glucose, Whole Blood 241 mg/dL (60-115)
[2020-10-05] MEDS: Dextrose 5 % and Lactated Ring 1,000 ML 200 ML IVCONT ×2 (12:14→17:00)
[2020-10-05] MEDS: Enoxaparin Sodium 40 MG/0.4 ML SYRINGE SUBCUT (12:15)
--- NOTE | 2020-10-05 12:26 | P.HPCC_ITS ---
History of Present Illness Date of Service: 10/05/20 Chief Complaint: Fatigue/weakness 25-year-old gentleman with no significant past medical history except asthma and obesity admitted on 10/05/2020 with to day history of worsening fatigue and weakness, polydipsia, polyuria, and hyperglycemia. He denies any recent sicknesses. On ER evaluation patient was noted to be in diabetic ketoacidosis, he has been started on IV fluid support and insulin drip and admitted to intensive care unit. Review of Systems Constitutional: Constitutional: Denies daytime sleepiness, Denies excessive sweating, Reports fatigue, Denies fever(s), Denies lethargy, Reports malaise, Denies night sweats, Denies snoring and Denies weight loss Eyes: Eyes: Denies blurry vision and Denies itchy eyes ENT: Denies nasal congestion, Denies post nasal drip, Denies sinus pain, Denies sinus pressure and Denies other ( Thrush) Cardiovascular: Cardiovascular: Denies chest pain, Denies pedal edema, Denies dyspnea, Denies orthopnea and Denies paroxysmal nocturnal dyspnea Respiratory: Respiratory: Denies cough, Denies hemoptysis, Denies excessive phlegm production, Denies dyspnea, Denies snoring and Denies wheezing Gastrointestinal: Gastrointestinal: Denies abdominal pain and Denies heartburn Genitourinary: Genitourinary: Reports other (Increased urination) Musculoskeletal: Musculoskeletal: Denies myalgias, Denies arthralgias and Denies joint swelling Integumentary/Breasts: Skin/Breast: Denies rash Neurologic: Denies memory loss and Denies seizure-like activity Psychiatric: Psychiatric: Denies abnormal sleep pattern, Denies anxiety and Denies memory loss Endocrine: Endocrine: Denies excessive sweating, Reports fatigue, Denies heat intolerance and Reports polydipsia Hematologic/Lymphatic: Hematologic/Lymphatic: Denies easy bruising Allergic/Immunologic: Allergic/Immunologic: Denies itchy eyes, Denies seasonal rhinorrhea and Denies wheezing PMFSH Past Medical History Medical History (Updated 10/05/20 @ 12:30 by William Hastings MD) Asthma No known health problems Family History Family History (Updated 10/05/20 @ 12:29 by William Hastings MD) Maternal Grandmother Diabetes Social History Social History Household Members: Family Housing: Apartment Do you presently have visiting nurse or other home services: No Alcohol intake: never Smoking Status: Never smoker Use of substances other than those prescribed or required for medical reasons: No Have you been hit, kicked, punched, or otherwise hurt by someone within the past year? If so, by whom?: No Do you feel safe in your current relationship?: No Current Relationship Is there a partner from a previous relationship who is making you feel unsafe now?: No Are you made to feel afraid or neglected: No Advance Directives: No Advance Directives Information Provided: No Do you have thoughts of harming others: None Do you have a plan to hurt others: No Plan Recently lost weight without trying: No Meds Allergies Allergy/AdvReac Type Severity Reaction Status Date / Time shellfish derived Allergy Intermediate RASH Verified 10/05/20 00:24 [SHELLFISH DERIVED] Active Medications: Current Medications Generic Name Dose Route Start Last Admin Trade Name Freq PRN Reason Stop Dose Admin Dextrose 25 gm 10/04/20 23:22 Dextrose 50 % 25 Gm/50 Ml Vial IVPUSH ONCE PRN BG < 70 mg/dL Enoxaparin Sodium 40 mg 10/05/20 12:00 10/05/20 12:15 Enoxaparin Sodium 40 Mg/0.4 Ml Syringe SUBCUT 40 mg Q24H MAR[place] Administration Insulin Human Regular 100 unit in 100 mls @ 6 mls/hr 10/05/20 08:45 10/05/20 12:01 Myxredlin IVCONT 7 ml/hr .[id number] MAR[place]ET[place] 7 mls/hr Titration Protocol Dextrose/Lactated Ringer's 1,000 mls @ 200 mls/hr 10/05/20 11:15 10/05/20 12:14 D5lr IVCONT 200 mls/hr .Q5H [place] Administration Ondansetron HCl 4 mg 10/05/20 11:05 Ondansetron Hcl 4 Mg/2 Ml Vial IVPUSH Q8H PRN Nausea Physical Exam Vital Signs: Vital Signs: Last Vital Signs Temp 97.6 F 10/05/20 09:55 Pulse 72 10/05/20 12:00 Resp 21 H 10/05/20 12:00 BP 147/60 H 10/05/20 12:00 Pulse Ox 97 10/05/20 12:00 Body Mass Index 37.5 Const: General: no acute distress, alert and awake Nutritional Appearance: obese Eyes: Sclerae: sclerae normal EOM: EOMs intact bilaterally Neck: Neck: Yes no lymphadenopathy, Yes trachea midline and Yes supple Resp: Effort & Inspection: normal respiratory effort and no respiratory distress Auscultation: clear to auscultation bilaterally Cardio: Rate: regular rate Rhythm: regular rhythm Heart sounds: no gallops, no murmurs and no rubs GI: Palpation (GI): Soft to palpation and Other GI palpation findings present ( Nontender) Auscultation: normal bowel sounds Extrem: General: Yes no pedal edema, No clubbing and No cyanosis Results Labs CBC and Chem 7: 10/04/20 18:08 10/05/20 07:35 Labs: Laboratory Results - last 24 hr 10/04/20 10/04/20 10/04/20 16:36 18:08 18:08 MCV 76.2 L MCH 26.5 L MCHC 34.8 RDW 12.9 Plt Count 326 MPV 11.1 Immature Gran % (Auto) 0.5 H Neut % (Auto) 74.2 H Lymph % (Auto) 15.9 L [place] % (Auto) 8.4 Eos % (Auto) 0.5 Baso % (Auto) 0.5 Lymph # (Auto) 1.3 [place] # (Auto) 0.7 Eos # (Auto) 0.0 Baso # (Auto) 0.0 Abs Immat Gran (auto) 0.04 H Absolute Neuts (auto) 6.2 Absolute Nucleated RBC 0.000 Nucleated RBC % (auto) 0.0 Hold Purple Top SEE NOTE VBG pH VBG pCO2 VBG pO2 VBG HCO3 VBG O2 Saturation VBG Base Excess Anion Gap Estim Creat Clear Calc Estimated GFR POC Glucose 409 H* Random Glucose Estimat Average Glucose Hemoglobin A1c % Calcium Magnesium Total Bilirubin AST ALT Alkaline Phosphatase Total Protein Albumin Urine Color Urine Appearance Urine pH Ur Specific [place] Urine Protein Urine Glucose (UA) Urine Ketones Urine Blood Urine Nitrite Ur Leukocyte Esterase Urine RBC Urine WBC Ur Squamous Epith Cells Urine Bacteria Hyaline Casts Granular Casts Urine Mucus Acetone, Qual 10/04/20 10/04/20 10/04/20 18:17 18:54 18:54 MCV MCH MCHC RDW Plt Count MPV Immature Gran % (Auto) Neut % (Auto) Lymph % (Auto) [place] % (Auto) Eos % (Auto) Baso % (Auto) Lymph # (Auto) [place] # (Auto) Eos # (Auto) Baso # (Auto) Abs Immat Gran (auto) Absolute Neuts (auto) Absolute Nucleated RBC Nucleated RBC % (auto) Hold Purple Top VBG pH VBG pCO2 VBG pO2 VBG HCO3 VBG O2 Saturation VBG Base Excess Anion Gap 26 H Estim Creat Clear Calc 115.2 Estimated GFR 59 POC Glucose 379 H* Random Glucose 337 H Estimat Average Glucose Hemoglobin A1c % Calcium 8.2 L Magnesium Total Bilirubin AST ALT Alkaline Phosphatase Total Protein Albumin Urine Color Urine Appearance Urine pH Ur Specific [place] Urine Protein Urine Glucose (UA) Urine Ketones Urine Blood Urine Nitrite Ur Leukocyte Esterase Urine RBC Urine WBC Ur Squamous Epith Cells Urine Bacteria Hyaline Casts Granular Casts Urine Mucus Acetone, Qual Moderate H 10/04/20 10/04/20 10/04/20 18:54 19:52 20:04 MCV MCH MCHC RDW Plt Count MPV Immature Gran % (Auto) Neut % (Auto) Lymph % (Auto) [place] % (Auto) Eos % (Auto) Baso % (Auto) Lymph # (Auto) [place] # (Auto) Eos # (Auto) Baso # (Auto) Abs Immat Gran (auto) Absolute Neuts (auto) Absolute Nucleated RBC Nucleated RBC % (auto) Hold Purple Top VBG pH VBG pCO2 VBG pO2 VBG HCO3 VBG O2 Saturation VBG Base Excess Anion Gap Estim Creat Clear Calc Estimated GFR POC Glucose 312 H Random Glucose Estimat Average Glucose 335 Hemoglobin A1c % 13.3 Calcium Magnesium Total Bilirubin AST ALT Alkaline Phosphatase Total Protein Albumin Urine Color YELLOW Urine Appearance CLEAR Urine pH 5.5 Ur Specific [place] >= 1.030 H Urine Protein 2+ H Urine Glucose (UA) 500 H Urine Ketones >=80 Urine Blood 1+ H Urine Nitrite NEG Ur Leukocyte Esterase NEG Urine RBC 0-2 Urine WBC 1-4 Ur Squamous Epith Cells 1+ Urine Bacteria TRACE Hyaline Casts 5-9 Granular Casts 0-2 Urine Mucus 1+ Acetone, Qual 10/04/20 10/04/20 10/04/20 20:07 20:51 22:07 MCV MCH MCHC RDW Plt Count MPV Immature Gran % (Auto) Neut % (Auto) Lymph % (Auto) [place] % (Auto) Eos % (Auto) Baso % (Auto) Lymph # (Auto) [place] # (Auto) Eos # (Auto) Baso # (Auto) Abs Immat Gran (auto) Absolute Neuts (auto) Absolute Nucleated RBC Nucleated RBC % (auto) Hold Purple Top VBG pH 7.22 L VBG pCO2 25 VBG pO2 33 VBG HCO3 11 L VBG O2 Saturation 56.0 VBG Base Excess -14.5 Anion Gap 24 H Estim Creat Clear Calc 126.4 Estimated GFR > 60 POC Glucose 279 H Random Glucose 279 H Estimat Average Glucose Hemoglobin A1c % Calcium 7.4 L D Magnesium Total Bilirubin AST ALT Alkaline Phosphatase Total Protein Albumin Urine Color Urine Appearance Urine pH Ur Specific [place] Urine Protein Urine Glucose (UA) Urine Ketones Urine Blood Urine Nitrite Ur Leukocyte Esterase Urine RBC Urine WBC Ur Squamous Epith Cells Urine Bacteria Hyaline Casts Granular Casts Urine Mucus Acetone, Qual 10/04/20 10/05/20 10/05/20 22:07 00:42 01:46 MCV MCH MCHC RDW Plt Count MPV Immature Gran % (Auto) Neut % (Auto) Lymph % (Auto) [place] % (Auto) Eos % (Auto) Baso % (Auto) Lymph # (Auto) [place] # (Auto) Eos # (Auto) Baso # (Auto) Abs Immat Gran (auto) Absolute Neuts (auto) Absolute Nucleated RBC Nucleated RBC % (auto) Hold Purple Top VBG pH VBG pCO2 VBG pO2 VBG HCO3 VBG O2 Saturation VBG Base Excess Anion Gap Estim Creat Clear Calc Estimated GFR POC Glucose 254 H 252 H Random Glucose Estimat Average Glucose Hemoglobin A1c % Calcium Magnesium Total Bilirubin AST ALT Alkaline Phosphatase Total Protein Albumin Urine Color Urine Appearance Urine pH Ur Specific [place] Urine Protein Urine Glucose (UA) Urine Ketones Urine Blood Urine Nitrite Ur Leukocyte Esterase Urine RBC Urine WBC Ur Squamous Epith Cells Urine Bacteria Hyaline Casts Granular Casts Urine Mucus Acetone, Qual Moderate H 10/05/20 10/05/20 10/05/20 02:21 03:21 03:22 MCV MCH MCHC RDW Plt Count MPV Immature Gran % (Auto) Neut % (Auto) Lymph % (Auto) [place] % (Auto) Eos % (Auto) Baso % (Auto) Lymph # (Auto) [place] # (Auto) Eos # (Auto) Baso # (Auto) Abs Immat Gran (auto) Absolute Neuts (auto) Absolute Nucleated RBC Nucleated RBC % (auto) Hold Purple Top VBG pH VBG pCO2 VBG pO2 VBG HCO3 VBG O2 Saturation VBG Base Excess Anion Gap 23 H 22 H Estim Creat Clear Calc 124.5 128.3 Estimated GFR > 60 > 60 POC Glucose 232 H Random Glucose 269 H 251 H Estimat Average Glucose Hemoglobin A1c % Calcium 7.5 L 7.7 L Magnesium Total Bilirubin 0.8 AST 88 H ALT 79 H Alkaline Phosphatase 113 Total Protein 6.6 Albumin 3.6 Urine Color Urine Appearance Urine pH Ur Specific [place] Urine Protein Urine Glucose (UA) Urine Ketones Urine Blood Urine Nitrite Ur Leukocyte Esterase Urine RBC Urine WBC Ur Squamous Epith Cells Urine Bacteria Hyaline Casts Granular Casts Urine Mucus Acetone, Qual 10/05/20 10/05/20 10/05/20 04:26 05:38 05:45 MCV MCH MCHC RDW Plt Count MPV Immature Gran % (Auto) Neut % (Auto) Lymph % (Auto) [place] % (Auto) Eos % (Auto) Baso % (Auto) Lymph # (Auto) [place] # (Auto) Eos # (Auto) Baso # (Auto) Abs Immat Gran (auto) Absolute Neuts (auto) Absolute Nucleated RBC Nucleated RBC % (auto) Hold Purple Top VBG pH VBG pCO2 VBG pO2 VBG HCO3 VBG O2 Saturation VBG Base Excess Anion Gap 19 Estim Creat Clear Calc 146.0 Estimated GFR > 60 POC Glucose 254 H 207 H Random Glucose 214 H Estimat Average Glucose Hemoglobin A1c % Calcium 7.2 L D Magnesium Total Bilirubin AST ALT Alkaline Phosphatase Total Protein Albumin Urine Color Urine Appearance Urine pH Ur Specific [place] Urine Protein Urine Glucose (UA) Urine Ketones Urine Blood Urine Nitrite Ur Leukocyte Esterase Urine RBC Urine WBC Ur Squamous Epith Cells Urine Bacteria Hyaline Casts Granular Casts Urine Mucus Acetone, Qual 10/05/20 10/05/20 10/05/20 05:45 06:48 07:35 MCV MCH MCHC RDW Plt Count MPV Immature Gran % (Auto) Neut % (Auto) Lymph % (Auto) [place] % (Auto) Eos % (Auto) Baso % (Auto) Lymph # (Auto) [place] # (Auto) Eos # (Auto) Baso # (Auto) Abs Immat Gran (auto) Absolute Neuts (auto) Absolute Nucleated RBC Nucleated RBC % (auto) Hold Purple Top VBG pH VBG pCO2 VBG pO2 VBG HCO3 VBG O2 Saturation VBG Base Excess Anion Gap 16 Estim Creat Clear Calc 146.0 Estimated GFR > 60 POC Glucose 178 H Random Glucose 160 H Estimat Average Glucose Hemoglobin A1c % Calcium 7.2 L Magnesium 1.7 Total Bilirubin AST ALT Alkaline Phosphatase Total Protein Albumin Urine Color Urine Appearance Urine pH Ur Specific [place] Urine Protein Urine Glucose (UA) Urine Ketones Urine Blood Urine Nitrite Ur Leukocyte Esterase Urine RBC Urine WBC Ur Squamous Epith Cells Urine Bacteria Hyaline Casts Granular Casts Urine Mucus Acetone, Qual 10/05/20 10/05/20 10/05/20 08:12 08:37 09:44 MCV MCH MCHC RDW Plt Count MPV Immature Gran % (Auto) Neut % (Auto) Lymph % (Auto) [place] % (Auto) Eos % (Auto) Baso % (Auto) Lymph # (Auto) [place] # (Auto) Eos # (Auto) Baso # (Auto) Abs Immat Gran (auto) Absolute Neuts (auto) Absolute Nucleated RBC Nucleated RBC % (auto) Hold Purple Top VBG pH VBG pCO2 VBG pO2 VBG HCO3 VBG O2 Saturation VBG Base Excess Anion Gap Estim Creat Clear Calc Estimated GFR POC Glucose 148 H 141 H 155 H Random Glucose Estimat Average Glucose Hemoglobin A1c % Calcium Magnesium Total Bilirubin AST ALT Alkaline Phosphatase Total Protein Albumin Urine Color Urine Appearance Urine pH Ur Specific [place] Urine Protein Urine Glucose (UA) Urine Ketones Urine Blood Urine Nitrite Ur Leukocyte Esterase Urine RBC Urine WBC Ur Squamous Epith Cells Urine Bacteria Hyaline Casts Granular Casts Urine Mucus Acetone, Qual 10/05/20 10/05/20 10:53 11:43 MCV MCH MCHC RDW Plt Count MPV Immature Gran % (Auto) Neut % (Auto) Lymph % (Auto) [place] % (Auto) Eos % (Auto) Baso % (Auto) Lymph # (Auto) [place] # (Auto) Eos # (Auto) Baso # (Auto) Abs Immat Gran (auto) Absolute Neuts (auto) Absolute Nucleated RBC Nucleated RBC % (auto) Hold Purple Top VBG pH VBG pCO2 VBG pO2 VBG HCO3 VBG O2 Saturation VBG Base Excess Anion Gap Estim Creat Clear Calc Estimated GFR POC Glucose 189 H 241 H Random Glucose Estimat Average Glucose Hemoglobin A1c % Calcium Magnesium Total Bilirubin AST ALT Alkaline Phosphatase Total Protein Albumin Urine Color Urine Appearance Urine pH Ur Specific [place] Urine Protein Urine Glucose (UA) Urine Ketones Urine Blood Urine Nitrite Ur Leukocyte Esterase Urine RBC Urine WBC Ur Squamous Epith Cells Urine Bacteria Hyaline Casts Granular Casts Urine Mucus Acetone, Qual Assessment and Plan (1) Diabetic ketoacidosis: Status: Acute Assessment: 25-year-old gentleman admitted with new onset diabetes with diabetic ketoacidosis requiring insulin drip. Plan: Neuro: No acute issues. Cardiac: No acute issues. Pulmonary: No acute issues. Renal: No acute issues. Endo: New into the diabetes with diabetic ketoacidosis. Continue to titrate off insulin drip as tolerated. GI: No acute issues. ID: No acute issues Heme/Onc: No acute issues. Psych: No acute issues. Miscellaneous: No acute issues. Prophylaxis: Lovenox Diet: Nothing by mouth Critical care time spent: 30 minutes Critical Care Time Critical Care Time (minutes): 30
[2020-10-05 12:44] LABS: Glucose, Whole Blood 249 mg/dL (60-115)
[2020-10-05 13:06] LABS: MANUAL DIFF FLAG NO
[2020-10-05 13:10] LABS: Basophils Percent Auto 0.5 % (0-2); Eosinophils Absolute Auto 0.1 X10*3/uL (0.0-0.4); Eosinophils Percent Auto 1.4 % (0-4); Hematocrit 38.5 % (42-52); Hemoglobin 13.2 g/dl (14.0-18.0); Imm Gran Abs Auto 0.03 X10*3/uL (0.00-0.03); Imm Gran Pct Auto 0.5 % (0.0-0.4); Lymphocytes Absolute Auto 1.3 X10*3/uL (1.2-4.9); Mean Corpuscular HGB Conc 34.3 g/dl (31.0-36.0); Mean Corpuscular Hemoglobin 26.5 pg (27.0-33.0); Mean Corpuscular Volume 77.2 fL (80-98); Mean Platelet Volume 10.9 fL (9.4-12.4); Monocytes Absolute Auto 0.8 X10*3/uL (0.1-1.2); Monocytes Percent Auto 13.2 % (2-11); Neutrophils Absolute Auto 3.6 X10*3/uL (2.0-8.3); Neutrophils Percent Auto 62.4 % (45-73); Platelet Count 292 X10*3/uL (160-400); Red Blood Count 4.99 X10*6/uL (4.60-5.80); Red Cell Distribution Width 13.3 % (11.0-16.0); White Blood Count 5.7 X10*3/uL (4.8-10.8)
[2020-10-05 13:11] LABS: Venous Blood Gas Refer to POC result
[2020-10-05 13:13] LABS: VBG Base Excess -10.8 mmol/L; VBG HCO3 15 mmol/L (22-26); VBG pCO2 36 mmHg; VBG pH 7.24 (7.32-7.43); VBG pO2 40 mmHg
[2020-10-05 13:41] LABS: Anion Gap 16 (12-20); Blood Urea Nitrogen 8 mg/dL (9-16); Calcium 7.5 mg/dL (8.4-10.2); Carbon Dioxide 15 mmol/L (22-29); Chloride 105 mmol/L (96-108); Creatinine Clr Calc Pharmacy 149.8; Estimated Glomerular Filt Rate > 60; Glucose Random 261 mg/dL (60-115); Potassium 3.8 mmol/L (3.3-5.1); Sodium 132 mmol/L (135-145)
[2020-10-05 13:44] LABS: Lipase 368 U/L (8-78)
[2020-10-05 13:58] LABS: Glucose, Whole Blood 266 mg/dL (60-115)
--- NOTE | 2020-10-05 14:28 | PC.NURSE ---
poc 266.Md notified,insulin drip increased to 12 units/hr per Md.
[2020-10-05 15:03] LABS: Glucose, Whole Blood 237 mg/dL (60-115)
[2020-10-05 16:08] LABS: Glucose, Whole Blood 205 mg/dL (60-115)
[2020-10-05 16:54] LABS: Glucose, Whole Blood 226 mg/dL (60-115)
[2020-10-05 18:04] LABS: Glucose, Whole Blood 228 mg/dL (60-115)
[2020-10-05 18:29] LABS: Anion Gap 15 (12-20); Blood Urea Nitrogen 7 mg/dL (9-16); Calcium 7.8 mg/dL (8.4-10.2); Carbon Dioxide 16 mmol/L (22-29); Chloride 107 mmol/L (96-108); Creatinine Clr Calc Pharmacy 152.5; Estimated Glomerular Filt Rate > 60; Glucose Random 229 mg/dL (60-115); Potassium 3.9 mmol/L (3.3-5.1); Sodium 134 mmol/L (135-145)
[2020-10-05 19:19] LABS: Glucose, Whole Blood 218 mg/dL (60-115)
[2020-10-05] MEDS: Insulin Glargine,Hum.rec.anlog 100 UNIT/ML 10 ML VIAL 40 UNIT SUBCUT (19:46)
[2020-10-05 20:13] LABS: Glucose, Whole Blood 205 mg/dL (60-115)
[2020-10-05 20:49] LABS: Glucose, Whole Blood 189 mg/dL (60-115)
[2020-10-05 21:37] LABS: Glucose, Whole Blood 170 mg/dL (60-115)
[2020-10-06] VITALS: BP 124/57; PULSE 75; RESP 18; TEMP 37.3; O2SAT 99
--- NOTE | 2020-10-06 01:00 | PC.NURSE ---
Assumed care at [id number] lantus given. Insulin drip stopped soon after as well as IV fluids. POC rechecked x2. Transfer to [facility] ordered. Patient c/o headache, tylenol ordered and given @ 2300. Vitals stable. Patient brought up to room 347 - report given to Karsten VELEZ.
[2020-10-06 02:56] LABS: Glucose, Whole Blood 236 mg/dL (60-115)
[2020-10-06 04:00] VITALS: RESP 18
[2020-10-06 06:06] LABS: MANUAL DIFF FLAG NO
[2020-10-06 06:27] LABS: Basophils Percent Auto 0.4 % (0-2); Eosinophils Absolute Auto 0.1 X10*3/uL (0.0-0.4); Eosinophils Percent Auto 1.6 % (0-4); Hematocrit 38.6 % (42-52); Hemoglobin 13.3 g/dl (14.0-18.0); Imm Gran Abs Auto 0.04 X10*3/uL (0.00-0.03); Imm Gran Pct Auto 0.7 % (0.0-0.4); Lymphocytes Absolute Auto 2.1 X10*3/uL (1.2-4.9); Lymphocytes Percent Auto 36.6 % (20-40); Mean Corpuscular HGB Conc 34.5 g/dl (31.0-36.0); Mean Corpuscular Hemoglobin 26.5 pg (27.0-33.0); Mean Corpuscular Volume 76.9 fL (80-98); Mean Platelet Volume 11.3 fL (9.4-12.4); Monocytes Absolute Auto 0.8 X10*3/uL (0.1-1.2); Monocytes Percent Auto 13.3 % (2-11); Neutrophils Absolute Auto 2.7 X10*3/uL (2.0-8.3); Neutrophils Percent Auto 47.4 % (45-73); Platelet Count 290 X10*3/uL (160-400); Red Blood Count 5.02 X10*6/uL (4.60-5.80); Red Cell Distribution Width 13.8 % (11.0-16.0); White Blood Count 5.7 X10*3/uL (4.8-10.8)
[2020-10-06 07:07] LABS: Albumin Level 3.1 g/dL (3.5-5.0); Anion Gap 18 (12-20); Blood Urea Nitrogen 5 mg/dL (9-16); Calcium 7.9 mg/dL (8.4-10.2); Carbon Dioxide 14 mmol/L (22-29); Chloride 106 mmol/L (96-108); Creatinine Clr Calc Pharmacy 164.4; Estimated Glomerular Filt Rate > 60; Glucose Random 251 mg/dL (60-115); Magnesium 1.6 mg/dL (1.6-2.6); Potassium 3.6 mmol/L (3.3-5.1); Sodium 134 mmol/L (135-145)
[2020-10-06 07:35] LABS: Glucose, Whole Blood 243 mg/dL (60-115)
[2020-10-06] MEDS: Insulin Lispro 100 UNIT/ML 3 ML VIAL SUBCUT ×2 (07:42→12:04)
[2020-10-06 07:44] LABS: Phosphorus 2.4 mg/dL (2.7-4.5)
[2020-10-06 08:00] VITALS: BP 128/63; PULSE 72; RESP 15; TEMP 36.1; O2SAT 99
--- NOTE | 2020-10-06 08:39 | MHC.CM.PN ---
pt lives c his mother in ther home. he reports he is independent in his care. 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 pt is not approp. for vna. dc plan is home c care of mother who will provide transportation at sd. cm to cont. to follow.
[2020-10-06] MEDS: Insulin Glargine,Hum.rec.anlog 100 UNIT/ML 10 ML VIAL 40 UNIT SUBCUT (09:52)
[2020-10-06 11:40] LABS: Glucose, Whole Blood 329 mg/dL (60-115)
--- NOTE | 2020-10-06 11:59 | MHC.CM.PN ---
i spoke c patient via malariologist re: obtaining a PCP. evidently, his mother has one in mind and is finding out if they are accepting patients. the patient was reminded to call the number on the back of his [employer] . card and let them know he has selected the said doctor as his PCP. pt was in full understanding. cm to cont. to follow.
[2020-10-06] MEDS: Enoxaparin Sodium 40 MG/0.4 ML SYRINGE SUBCUT (12:04)
[2020-10-06 12:05] VITALS: BMI 37.5
--- NOTE | 2020-10-06 13:24 | P.DS_ITS ---
DS: Providers Provider Date of Service: 10/06/20 Date of admission: 10/05/20 11:06 Primary care physician: None Physician DS: Diagnosis Discharge Diagnosis (1) Diabetic ketoacidosis: Status: Acute DS: Medications Discharge Medications Home Medications: Home Medications Medication Instructions Recorded Confirmed No Known Home Meds 10/05/20 10/05/20 DS: Summary Hospital Course Hospital Course: Chief Complaint: Fatigue/weakness 25-year-old gentleman with no significant past medical history except asthma and obesity admitted on 10/05/2020 with to day history of worsening fatigue and weakness, polydipsia, polyuria, and hyperglycemia. He denies any recent sicknesses. On ER evaluation patient was noted to be in diabetic ketoacidosis, he has been started on IV fluid support and insulin drip and admitted to intensive care unit. Newly diagnosed Diabetes/DKA 25-year-old gentleman admitted with hyperglycemia and diagnosed to have DKA patient overnight treated with insulin drip and anion gap closed patient subsequently transferred to medical floor currently patient is asymptomatic with no nausea vomiting abdominal discomfort tolerating diet blood sugars are in 200 range, Hbaic is 13.3 ,patient evaluated by bloom conveyor operator and given information about diabetic diet patient also received teachings about how to check blood sugars and how to administer insulin patient is now being discharged home on Lantus 40 units at bedtime and Humalog pre meal insulin he has been instructed to follow up with primary care physician, a glucometer, lancet and needles has been prescribed. Obesity patient has been instructed to lose weight follow diabetic diet and exercise Time Spent with Patient Time attestation: Total time spent providing and/or coordinating discharge services: Discharge coordination time: Greater than 30 minutes Physical Exam Vital Signs: Vital Signs: Last Vital Signs Temp 97 F 10/06/20 08:00 Pulse 72 10/06/20 08:00 Resp 15 10/06/20 08:00 BP 128/63 10/06/20 08:00 Pulse Ox 99 10/06/20 08:00 Body Mass Index 37.5 General patient resting comfortably in no acute distress. Neck is supple no JVD. CVS regular rate rhythm, Respiratory lungs clear to auscultation, no respiratory distress, no wheeze, no rhonchi. Gastrointestinal abdomen soft, nontender, bowel sounds audible, no guarding , no rigidity. Extremities no clubbing cyanosis or edema. Neuro nonfocal patient moving all 4 extremity speech clear. Skin no rash DS: Data Data Completed and Pending Labs on day of discharge: Laboratory Results - last 24 hr 10/05/20 10/05/20 10/05/20 12:59 13:54 14:59 WBC RBC Hgb Hct MCV MCH MCHC RDW Plt Count MPV Immature Gran % (Auto) Neut % (Auto) Lymph % (Auto) [place] % (Auto) Eos % (Auto) Baso % (Auto) Lymph # (Auto) [place] # (Auto) Eos # (Auto) Baso # (Auto) Abs Immat Gran (auto) Absolute Neuts (auto) Absolute Nucleated RBC Nucleated RBC % (auto) Sodium 132 L Potassium 3.8 Chloride 105 Carbon Dioxide 15 L Anion Gap 16 BUN 8 L Creatinine 1.13 Estim Creat Clear Calc 149.8 Estimated GFR > 60 POC Glucose 266 H 237 H Random Glucose 261 H D Calcium 7.5 L Phosphorus Magnesium Albumin Lipase 368 H 10/05/20 10/05/20 10/05/20 16:05 16:51 17:53 WBC RBC Hgb Hct MCV MCH MCHC RDW Plt Count MPV Immature Gran % (Auto) Neut % (Auto) Lymph % (Auto) [place] % (Auto) Eos % (Auto) Baso % (Auto) Lymph # (Auto) [place] # (Auto) Eos # (Auto) Baso # (Auto) Abs Immat Gran (auto) Absolute Neuts (auto) Absolute Nucleated RBC Nucleated RBC % (auto) Sodium 134 L Potassium 3.9 Chloride 107 Carbon Dioxide 16 L Anion Gap 15 BUN 7 L Creatinine 1.11 Estim Creat Clear Calc 152.5 Estimated GFR > 60 POC Glucose 205 H 226 H Random Glucose 229 H Calcium 7.8 L Phosphorus Magnesium Albumin Lipase 10/05/20 10/05/20 10/05/20 17:58 19:15 20:08 WBC RBC Hgb Hct MCV MCH MCHC RDW Plt Count MPV Immature Gran % (Auto) Neut % (Auto) Lymph % (Auto) [place] % (Auto) Eos % (Auto) Baso % (Auto) Lymph # (Auto) [place] # (Auto) Eos # (Auto) Baso # (Auto) Abs Immat Gran (auto) Absolute Neuts (auto) Absolute Nucleated RBC Nucleated RBC % (auto) Sodium Potassium Chloride Carbon Dioxide Anion Gap BUN Creatinine Estim Creat Clear Calc Estimated GFR POC Glucose 228 H 218 H 205 H Random Glucose Calcium Phosphorus Magnesium Albumin Lipase 10/05/20 10/05/20 10/06/20 20:46 21:33 02:52 WBC RBC Hgb Hct MCV MCH MCHC RDW Plt Count MPV Immature Gran % (Auto) Neut % (Auto) Lymph % (Auto) [place] % (Auto) Eos % (Auto) Baso % (Auto) Lymph # (Auto) [place] # (Auto) Eos # (Auto) Baso # (Auto) Abs Immat Gran (auto) Absolute Neuts (auto) Absolute Nucleated RBC Nucleated RBC % (auto) Sodium Potassium Chloride Carbon Dioxide Anion Gap BUN Creatinine Estim Creat Clear Calc Estimated GFR POC Glucose 189 H 170 H 236 H Random Glucose Calcium Phosphorus Magnesium Albumin Lipase 10/06/20 10/06/20 10/06/20 05:41 05:41 07:15 WBC 5.7 RBC 5.02 Hgb 13.3 L Hct 38.6 L MCV 76.9 L MCH 26.5 L MCHC 34.5 RDW 13.8 Plt Count 290 MPV 11.3 Immature Gran % (Auto) 0.7 H Neut % (Auto) 47.4 Lymph % (Auto) 36.6 [place] % (Auto) 13.3 H Eos % (Auto) 1.6 Baso % (Auto) 0.4 Lymph # (Auto) 2.1 [place] # (Auto) 0.8 Eos # (Auto) 0.1 Baso # (Auto) 0.0 Abs Immat Gran (auto) 0.04 H Absolute Neuts (auto) 2.7 Absolute Nucleated RBC 0.000 Nucleated RBC % (auto) 0.0 Sodium 134 L Potassium 3.6 Chloride 106 Carbon Dioxide 14 L Anion Gap 18 BUN 5 L Creatinine 1.03 Estim Creat Clear Calc 164.4 Estimated GFR > 60 POC Glucose 243 H Random Glucose 251 H Calcium 7.9 L Phosphorus 2.4 L Magnesium 1.6 Albumin 3.1 L Lipase 10/06/20 11:26 WBC RBC Hgb Hct MCV MCH MCHC RDW Plt Count MPV Immature Gran % (Auto) Neut % (Auto) Lymph % (Auto) [place] % (Auto) Eos % (Auto) Baso % (Auto) Lymph # (Auto) [place] # (Auto) Eos # (Auto) Baso # (Auto) Abs Immat Gran (auto) Absolute Neuts (auto) Absolute Nucleated RBC Nucleated RBC % (auto) Sodium Potassium Chloride Carbon Dioxide Anion Gap BUN Creatinine Estim Creat Clear Calc Estimated GFR POC Glucose 329 H Random Glucose Calcium Phosphorus Magnesium Albumin Lipase Discharge Plan Discharge Patient Disposition: Home, Self-Care Referrals: Physician,None [Primary Care Provider] - Discharge Medications: New Lantus Solostar U-100 Insulin 100 unit/mL (3 mL) insulin pen 40 unit subcut QPM Qty: 3 RF: 0 insulin lispro [Humalog KwikPen Insulin] 100 unit/mL insulin pen 5 unit subcut TID Qty: 3 RF: 0 Discharge Orders: Discharge Order (Routine); Ordered 10/06/20 Ordered By: Bo Proctor Diet: diabetic diet Activity on Discharge: As tolerated Stand Alone Forms: Patient Portal Discharge page Care Plan Goals: Please arrange for primary care physician/please pickle water pump operator prescription for free style glucometer, lancets and test strips from [facility] Health Concerns: New onset diabetes mellitus, follow diabetic diet take insulin as prescribed and follow-up with primary care physician Plan of Treatment: Check blood sugars 3 times before meals and at bedtime follow-up with PCP
== END 2020-10-06 15:46 | disposition home or self-care (01) | DRG 639 ==
LOC: HO.ED 10-05 03:40 → HO.EDOVER 10-05 11:16 → HO.ICU 10-05 11:35 → HO.S3 10-05 19:31
PROVIDERS: Emergency Medicine; Emergency Medicine Emergency Medical Services; Physician Assistant; Admitting Provider Internal Medicine Pulmonary Disease; Emergency Provider Student in an Organized Health Care Education/Training Program; Visit Provider Hospitalist
DX: E11.10 Type 2 diabetes mellitus with ketoacidosis without coma (principal); J45.909 Unspecified asthma, uncomplicated
CPT/HCPCS: 36415; 80048; 80053; 81001; 82009; 82040; 82947; 83036; 83690; 83735; 84100; 85025; 96361; 96365; 96375; 99285; J1650

== ENCOUNTER 2024-01-05 12:28 | Outpatient (REF) | payer OTHER, SELFPAY ==
[2024-01-05 14:03] LABS: Estimated Average Glucose 246 mg/dL; Hemoglobin A1c % 10.2 % (<6.0)
[2024-01-05 14:24] LABS: Creatinine Urine 218.84 mg/dL; Microalbum/Creatinine Ratio Ur 4.1 ug/mg cr (<30)
[2024-01-05 15:07] LABS: Alanine Aminotransferase 29 U/L (0-40); Albumin Level 4.2 g/dL (3.5-5.0); Alkaline Phosphatase 73 U/L (39-117); Anion Gap 12 (12-20); Aspartate Amino Transferase 23 U/L (5-37); Bilirubin Total 0.7 mg/dL (0.0-1.0); Blood Urea Nitrogen 10 mg/dL (9-16); Calcium 9.6 mg/dL (8.4-10.2); Carbon Dioxide 27 mmol/L (22-29); Chloride 107 mmol/L (96-108); Cholesterol 124 mg/dL (<200); Estimated Glomerular Filt Rate > 60; Glucose Random 125 mg/dL (60-115); HDL Cholesterol 29 mg/dL (>40); LDL Cholesterol Calculated 73 mg/dL (<100); Potassium 4.2 mmol/L (3.3-5.1); Sodium 142 mmol/L (135-145); Total Protein 7.5 g/dL (6.5-8.0); Triglycerides 110 mg/dL (<150)
== END 2024-01-05 12:29 | disposition home or self-care (01) ==
LOC: HO.LAB 12:28
PROVIDERS: PCP Internal Medicine; Visit Provider Internal Medicine
DX: Z00.01 Encounter for general adult medical examination with abnormal findings (principal); E11.65 Type 2 diabetes mellitus with hyperglycemia; E66.9 Obesity, unspecified; I10 Essential (primary) hypertension
CPT/HCPCS: 36415; 80053; 80061; 82043; 82570; 83036; 84443

== ENCOUNTER → 2024-04-10 08:45 | Outpatient (BNVA) | payer OTHER, SELFPAY | PROVIDERS: PCP Internal Medicine; Visit Provider Internal Medicine | DX: S02.2XXA Fracture of nasal bones, initial encounter for closed fracture (principal); S00.83XA Contusion of other part of head, initial encounter; Y04.2XXA Assault by strike against or bumped into by another person, initial encounter; G96.198 Other disorders of meninges, not elsewhere classified; Z23 Encounter for immunization | CPT/HCPCS: 70450; 70486; 90715; 99203 ==

== ENCOUNTER → 2024-04-12 10:19 | Outpatient (BNVA) | payer OTHER, SELFPAY | PROVIDERS: PCP Internal Medicine; Visit Provider Internal Medicine | DX: R22.0 Localized swelling, mass and lump, head (principal); S00.33XA Contusion of nose, initial encounter; S00.12XA Contusion of left eyelid and periocular area, initial encounter; S00.11XA Contusion of right eyelid and periocular area, initial encounter; Y04.2XXA Assault by strike against or bumped into by another person, initial encounter | CPT/HCPCS: 99214 ==

== ENCOUNTER → 2024-04-17 11:20 | Outpatient (BNVA) | payer OTHER, SELFPAY | PROVIDERS: PCP Internal Medicine; Visit Provider Registered Nurse | DX: S00.33XA Contusion of nose, initial encounter (principal); Y04.2XXA Assault by strike against or bumped into by another person, initial encounter; G96.198 Other disorders of meninges, not elsewhere classified | CPT/HCPCS: 99213 ==

== ENCOUNTER 2024-05-10 15:23 | Outpatient (REF) | payer OTHER, SELFPAY ==
[2024-05-10 16:19] LABS: Estimated Average Glucose 140 mg/dL; Hemoglobin A1C 174.8474 umol/L; Hemoglobin A1c % 6.5 % (<6.0); Total Hemoglobin (HGBA1C) 3680.6167 umol/L
[2024-05-10 16:31] LABS: Alanine Aminotransferase 28 U/L (0-40); Albumin Level 4.2 g/dL (3.5-5.0); Alkaline Phosphatase 96 U/L (39-117); Anion Gap 16 (12-20); Aspartate Amino Transferase 30 U/L (5-37); Bilirubin Total 0.8 mg/dL (0.0-1.0); Blood Urea Nitrogen 15 mg/dL (9-16); Calcium 9.2 mg/dL (8.4-10.2); Carbon Dioxide 25 mmol/L (22-29); Chloride 105 mmol/L (96-108); Estimated Glomerular Filt Rate > 60; Glucose Random 91 mg/dL (60-115); Potassium 3.9 mmol/L (3.3-5.1); Sodium 142 mmol/L (135-145); Total Protein 8.1 g/dL (6.5-8.0)
== END 2024-05-10 15:24 | disposition home or self-care (01) ==
LOC: HO.LAB 15:23
PROVIDERS: PCP Internal Medicine; Visit Provider Internal Medicine
DX: D16.4 Benign neoplasm of bones of skull and face (principal); E11.65 Type 2 diabetes mellitus with hyperglycemia; I10 Essential (primary) hypertension; Z91.148 Patient's other noncompliance with medication regimen for other reason
CPT/HCPCS: 36415; 80053; 83036

== ENCOUNTER 2024-06-21 18:31 | Emergency (ER) | payer OTHER, SELFPAY ==
[2024-06-21 19:50] VITALS: BP 138/70; PULSE 79; RESP 19; TEMP 36.6; O2SAT 98; BMI 40.0
--- NOTE | 2024-06-21 19:50 | ED_ITS ---
HPI - General Adult General Chief complaint: Nausea/Vomiting/Diarrhea Stated complaint: Vomiting Time Seen by Provider: 06/22/24 02:46 Source: patient Mode of arrival: ambulatory Limitations: no limitations History of Present Illness ED Provider: HPI narrative: Patient has been having nausea vomiting diarrhea started earlier today kids also sick with same vomited about 4 times last vomiting was at 15:00 also had 2 or 3 loose bowel diffuse abdominal cramping no fever no chills patient has denied any urinary symptoms Related Data Previous Rx's ?Medication ?Instructions ?Recorded insulin glargine 100 unit/mL (3 40 unit (0.4 mL) subcut QPM #3 mL 10/06/20 mL) subcutaneous pen (Lantus Solostar U-100 Insulin) insulin lispro 100 unit/mL 5 unit (0.05 mL) subcut TID #3 mL 10/06/20 subcutaneous pen (Humalog KwikPen (U-100) Insulin) cefuroxime axetil 250 mg tablet 250 mg PO BID 7 days #14 tabs 06/22/24 ondansetron 4 mg disintegrating 4 mg PO Q6-8H PRN nausea and 06/22/24 tablet vomiting #7 tabs Allergies Allergy/AdvReac Type Severity Reaction Status Date / Time shellfish derived Allergy Intermediate RASH Verified 06/21/24 19:51 [SHELLFISH DERIVED] Review of Systems 2 Review of Systems: Yes all other systems are reviewed and are negative [facility] Past Medical History Medical History Asthma No known health problems Family History Family History Maternal Grandmother Diabetes Social History Social History Household Members: Family Housing: Apartment Do you presently have visiting nurse or other home services: No Alcohol intake: never Comment: sleeping Smoked in Last 30 Days: No Use of substances other than those prescribed or required for medical reasons: No Advance Directives: No Advance Directives Information Provided: Yes Do you have a plan to hurt others: No Plan service: No Current occupational status: employed Physical Exam ED Vital Signs: Vital Signs - 24 hr 06/21/24 19:50 06/22/24 01:45 06/22/24 03:22 Temperature 98 F 97.0 F 97.2 F Pulse Rate 79 58 72 Respiratory Rate 19 14 12 Blood Pressure 138/70 146/87 H 143/89 H Pulse Oximetry 98 96 94 Oxygen Delivery Method Room Air Room Air Room Air 06/22/24 03:40 Temperature 97.2 F Pulse Rate 72 Respiratory Rate 12 Blood Pressure 143/89 H Pulse Oximetry 94 Oxygen Delivery Method Room Air BMI result Body Mass Index 40.0 Appearance: Alert. Oriented X3. No acute distress. Eyes: No pallor ENT: Pharynx normal. Oral Mucosa moist Neck: Normal inspection. Neck supple. CVS: Normal heart rate and rhythm. Pulses normal. Respiratory: No respiratory distress. Equal air entry bilateral, no wheezing/rales/rhonchi Abdomen: Soft and nontender. Bowel sounds are present, no mass palpable, no CVA tenderness Skin: Skin warm and dry. Normal skin color. Normal skin turgor. Extremities: No lower extremity edema. No calf tenderness Neuro: Oriented X 3. No motor deficit. Course Course Course Narrative: RME, this is a rapid medical exam performed by Fortunato Reyes please refer to primary provider for complete H&P- 29-year-old male past medical history significant for diabetes, hyperglycemia presents for evaluation of vomiting, headache, fevers and chills. His significant other and her live with him both have similar symptoms. Plan for labs and viral swabs. Medications Administered Discontinued Medications Generic Name Dose Route Start Last Admin Trade Name Freq PRN Reason Stop Dose Admin Cefuroxime Axetil 500 mg 06/22/24 03:00 06/22/24 03:13 Cefuroxime Axetil 500 Mg Tablet PO 06/22/24 03:01 500 mg ONCE ONE Administration Ondansetron HCl 4 mg 06/22/24 02:59 06/22/24 03:13 Ondansetron Odt 4 Mg Tab.Rapdis TRANSLINGU 06/22/24 03:00 4 mg ONCE ONE Administration Medical Decision Making Medical Decision Making [facility] Narrative: Patient with acute gastroenteritis denies any urinary symptoms urine showed WBCs will discharge patient home on Zofran and Ceftin patient's family members also sick with same Lab Data 06/21/24 21:03 06/21/24 21:03 Labs: Lab Results 12/13/24 12/14/24 Range/Units 21:03 01:57 WBC 8.3 (4.8-10.8) X10*3/uL RBC 5.59 (4.60-5.80) X10*6/uL Hgb 14.7 (14.0-18.0) g/dl Hct 42.9 (42.0-52.0) % MCV 76.7 L (80.0-98.0) fL MCH 26.3 L (27.0-33.0) pg MCHC 34.3 (31.0-36.0) g/dl RDW 13.7 (11.0-16.0) % Plt Count 314 (160-400) X10*3/uL MPV 9.5 (9.4-12.4) fL Immature Gran % (Auto) 0.5 H (0.0-0.4) % Neut % (Auto) 67.1 (45-73) % Lymph % (Auto) 22.8 (20-40) % [place] % (Auto) 8.4 (2-11) % Eos % (Auto) 0.8 (0-4) % Baso % (Auto) 0.4 (0-2) % Lymph # (Auto) 1.9 (1.2-4.9) X10*3/uL [place] # (Auto) 0.7 (0.1-1.2) X10*3/uL Eos # (Auto) 0.1 (0.0-0.4) X10*3/uL Baso # (Auto) 0.0 (0.0-0.2) X10*3/uL Abs Immat Gran (auto) 0.04 H (0.00-0.03) X10*3/uL Absolute Neuts (auto) 5.6 (2.0-8.3) x10*3/uL Absolute Nucleated RBC 0.000 (0.0-0.012) X10*3/uL Nucleated RBC % (auto) 0.0 (0.0-0.2) /100WBC Sodium 136 (135-145) mmol/L Potassium 3.6 (3.3-5.1) mmol/L Chloride 103 (96-108) mmol/L Carbon Dioxide 21 L (22-29) mmol/L Anion Gap 16 (12-20) BUN 16 (9-16) mg/dL Creatinine 0.92 (0.5-1.4) mg/dL Estim Creat Clear Calc 183.8 Estimated GFR > 60 Random Glucose 131 H (60-115) mg/dL Calcium 8.9 (8.4-10.2) mg/dL Total Bilirubin 1.8 H (0.0-1.0) mg/dL AST 28 (5-37) U/L ALT 31 (0-40) U/L Alkaline Phosphatase 79 (39-117) U/L Total Protein 7.6 (6.5-8.0) g/dL Albumin 4.0 (3.5-5.0) g/dL Lipase 16 (8-78) U/L Urine Color Dark Yellow Urine Appearance Cloudy Urine pH 5.5 (5.0-9.0) Ur Specific [place] >= 1.030 H (1.005-1.025) Urine Protein Trace (Neg-Trace) mg/dL Urine Glucose (UA) Negative (Negative) mg/dL Urine Ketones Negative (Negative) mg/dL Urine Blood Negative (Negative) Urine Nitrite Negative (Negative) Ur Leukocyte Esterase Small (1+) H (Negative) Urine RBC 0-2 (0-2) /HPF Urine WBC >50 H (0-5) /HPF Ur Squamous Epith Cells 6-10 (0-2) /HPF Other Crystals Present Urine Bacteria 1+ (None Seen) Hyaline Casts 0-2 (0-2) /LPF Influenza Type A (PCR) NEGATIVE (Negative) Influenza Type B (PCR) NEGATIVE (Negative) RSV RNA Qual (PCR) NEGATIVE (Negative) SARS-CoV-2 RNA (RT-PCR) NEGATIVE (Negative) Discharge Plan Discharge Clinical Impression: Gastroenteritis, Acute UTI Patient Disposition: Home, Self-Care Instructions: Urinary Tract Infection in Men (ED), Gastroenteritis (ED) Additional Instructions: Drink plenty of fluids Medicine for nausea as prescribed Your UA is positive for UTI culture is pending take antibiotics as prescribed Prescriptions: New cefuroxime axetil 250 mg tablet 250 mg PO BID 7 Days Qty: 14 0RF ondansetron 4 mg tablet,disintegrating 4 mg PO Q6-8H PRN (Reason: nausea and vomiting) Qty: 7 0RF No Action Lantus Solostar U-100 Insulin 100 unit/mL (3 mL) insulin pen 40 unit subcut QPM Qty: 3 0RF insulin lispro [Humalog KwikPen Insulin] 100 unit/mL insulin pen 5 unit subcut TID Qty: 3 0RF Interventions: ED Discharge Assessment Last Done: 06/22/24 03:40 Discharge Date/Time: 06/22/24 03:41 Print Language: Citizen Of [place]
[2024-06-21 21:08] LABS: MANUAL DIFF FLAG NO
[2024-06-21 21:11] LABS: Basophils Percent Auto 0.4 % (0-2); Eosinophils Absolute Auto 0.1 X10*3/uL (0.0-0.4); Eosinophils Percent Auto 0.8 % (0-4); Hematocrit 42.9 % (42.0-52.0); Hemoglobin 14.7 g/dl (14.0-18.0); Imm Gran Abs Auto 0.04 X10*3/uL (0.00-0.03); Imm Gran Pct Auto 0.5 % (0.0-0.4); Lymphocytes Absolute Auto 1.9 X10*3/uL (1.2-4.9); Lymphocytes Percent Auto 22.8 % (20-40); Mean Corpuscular HGB Conc 34.3 g/dl (31.0-36.0); Mean Corpuscular Hemoglobin 26.3 pg (27.0-33.0); Mean Corpuscular Volume 76.7 fL (80.0-98.0); Mean Platelet Volume 9.5 fL (9.4-12.4); Monocytes Absolute Auto 0.7 X10*3/uL (0.1-1.2); Monocytes Percent Auto 8.4 % (2-11); Neutrophils Absolute Auto 5.6 x10*3/uL (2.0-8.3); Neutrophils Percent Auto 67.1 % (45-73); Platelet Count 314 X10*3/uL (160-400); Red Blood Count 5.59 X10*6/uL (4.60-5.80); Red Cell Distribution Width 13.7 % (11.0-16.0); White Blood Count 8.3 X10*3/uL (4.8-10.8)
[2024-06-21 21:25] LABS: Alanine Aminotransferase 31 U/L (0-40); Alkaline Phosphatase 79 U/L (39-117); Anion Gap 16 (12-20); Aspartate Amino Transferase 28 U/L (5-37); Bilirubin Total 1.8 mg/dL (0.0-1.0); Blood Urea Nitrogen 16 mg/dL (9-16); Calcium 8.9 mg/dL (8.4-10.2); Carbon Dioxide 21 mmol/L (22-29); Chloride 103 mmol/L (96-108); Creatinine Clr Calc Pharmacy 183.8; Estimated Glomerular Filt Rate > 60; Glucose Random 131 mg/dL (60-115); Lipase 16 U/L (8-78); Potassium 3.6 mmol/L (3.3-5.1); Sodium 136 mmol/L (135-145); Total Protein 7.6 g/dL (6.5-8.0)
[2024-06-21 21:45] LABS: Influenza A PCR NEGATIVE (Negative); Influenza B PCR NEGATIVE (Negative); Resp Syncy Virus RNA Qual PCR NEGATIVE (Negative); SARS COV2 PCR INHOUSE NEGATIVE (Negative)
[2024-06-22 01:45] VITALS: BP 146/87; PULSE 58; RESP 14; TEMP 36.1; O2SAT 96
[2024-06-22 02:02] LABS: Appearance Urine Cloudy; Color Urine Dark Yellow; Glucose Urine UA Negative (Negative); Leukocyte Esterase Urine Small (1+) (Negative); Nitrite Urine Negative (Negative); PH 5.5 (5.0-9.0); Specific Gravity - Urine >= 1.030 (1.005-1.025); UMIC TRIGGER UACC YES; Urine Blood Negative (Negative); Urine Ketones Negative (Negative); Urine Protein Trace mg/dL (Neg-Trace)
[2024-06-22 02:10] LABS: Bacteria Urine 1+ (None Seen); Hyaline Casts Urine 0-2 /LPF (0-2); Other Crystals Urine Present; RBC Urine 0-2 /HPF (0-2); UACC Culture Trigger YES; WBC Urine >50 /HPF (0-5)
[2024-06-22] MEDS: cefuroxime axetiL 500 MG TABLET PO (03:13)
[2024-06-22] MEDS: Ondansetron ODT 4 MG TAB.RAPDIS TRANSLINGU (03:13)
[2024-06-22 03:22] VITALS: BP 143/89; PULSE 72; RESP 12; TEMP 36.2; O2SAT 94
[2024-06-22 03:40] VITALS: BP 143/89; PULSE 72; RESP 12; TEMP 36.2; O2SAT 94
== END 2024-06-22 03:41 | disposition home or self-care (01) ==
PROVIDERS: Physician Assistant; Emergency Provider Internal Medicine
DX: K52.9 Noninfective gastroenteritis and colitis, unspecified (principal); N39.0 Urinary tract infection, site not specified; J45.909 Unspecified asthma, uncomplicated; Z79.899 Other long term (current) drug therapy; Z03.818 Encounter for observation for suspected exposure to other biological agents ruled out
CPT/HCPCS: 0241U; 80053; 81001; 83690; 85025; 87086; 99283; 99284

== ENCOUNTER 2024-12-07 20:08 | Inpatient (IN) | payer MEDICAID, SELFPAY ==
--- NOTE | ~2024-12-07 | XR_ITS ---
CLINICAL HISTORY: cough, ?pna 1 view chest x-ray Comparison: None available Findings: Consolidation in the left lower lobe concerning for pneumonia. Additional bibasilar atelectasis/pneumonitis accentuated by low lung volumes. Cardiac silhouette and mediastinal contours accentuated by AP magnification. Left lateral clavicle deformity appears old/chronic. IMPRESSION: Consolidation in the left lower lobe concerning for pneumonia. Recommend attention on follow-up to ensure resolution. This document has been electronically signed by: Luis Manuel Nugent MD on 12/16/2024 21:32:01
--- NOTE | ~2024-12-07 | CT_ITS ---
CLINICAL HISTORY: ABD bilat flank pain, nausea CT abdomen and pelvis with contrast Comparison: None Findings: No consolidation or effusion. Severe peripancreatic fat stranding present. The pancreatic parenchyma appears to enhance normally. No organized peripancreatic fluid collections are present. The liver is enlarged. The liver appears normal in contour. The gallbladder, spleen, and bilateral adrenal glands are within normal limits for appearance. No hydronephrosis or hydroureter. Contrast is identified within the bilateral renal collecting systems. No bowel obstruction, pneumoperitoneum, or pneumatosis. Pelvic contents unremarkable. The bladder is underdistended. No focal bladder wall thickening. Normal appendix. No acute fracture visualized. IMPRESSION: 1. Acute pancreatitis with severe peripancreatic fat stranding. No CT evidence for pancreatic necrosis. No organized peripancreatic fluid collections are identified. 2. Mild hepatomegaly. This document has been electronically signed by: Marc Kulkarni MD on 12/07/2024 23:08:04
--- NOTE | ~2024-12-07 | CT_ITS ---
CLINICAL HISTORY: Facial numbness CT head without contrast Comparison: 04/10/24 Findings: No acute hemorrhage. No extra-axial fluid collection. No hydrocephalus, mass-effect or herniation. Phelps-white differentiation is maintained. White matter is within normal limits for age. No acute orbital pathology. No acute soft tissue abnormality. No fracture. Lytic lesion in the left occipital and temporal skull measuring 4.1 x 4.1 cm, previously measuring 3.8 x 4.1 cm. Interval increase in associated opacification of left mastoid air cells. Unchanged opacification of right mastoid air cellsmucosal thickening in the paranasal sinuses with trace foamy secretions. Large retention cyst/polyp in right maxillary sinus also seen on prior study now with fluid. Impression: No acute intracranial findings. Mild interval increase in size of the lytic lesion in the left temporal/occipital skull. Nonemergent workup is recommended if not previously performed. Interval increase in left mastoid effusion versus mastoiditis. Unchanged right mastoid effusion versus mastoiditis. Sinusitis. This document has been electronically signed by: Lara Pearson MD on 12/08/2024 15:59:17
--- NOTE | ~2024-12-07 | MR_ITS ---
CLINICAL HISTORY: <OBR.31.1><OBR.31.1.1>follow up severe pancreatitis, ongoing pain Pt motion </OBR. 31.1.1><OBR.31.1.2> respiratory artifact present throughout exam. Rpts attempted when permitted due t o pt pain. Best possible images obtained.</OBR.31.1.2></OBR.31.1> Examination: MRI/MRCP abdomen with and without intravenous contrast Comparison: CT/SR - CT ABDOMEN PELVIS W IV CON - 12/14/24 11:44 EDT US/NM/SR - US ABDOMEN LIMITED - 12/14/24 07:55 EDT Findings: This exam was significantly compromised by motion. The MRCP was nondiagnostic/noncontributory. Physiologic distention of the gallbladder. Equivocal gallstones can be confirmed with ultrasound. Hepatomegaly liver measures 23 cm. Splenomegaly spleen measures 14 cm. Trace amount of free ascites is noted around the liver and spleen. Peripancreatic inflammatory changes with peripancreatic fluid persists. Fluid /inflammatory process extends along the anterior and posterior pararenal space on the left stable. Early acute necrotic collections around the pancreas not entirely excluded on this exam. Asbestos can not be determine no definite evidence of necrosis of the pancreas limited assessment of the neck and body interface. The portal vein appears grossly patent. Stable moderate pleural-parenchymal disease left lower lobe. Imaged portion of the bowel shows a nonobstructive pattern. No marrow signal abnormalities. Impression: 1. This exam was significantly compromised by motion. The MRCP was nondiagnostic. Physiologic distention of the gallbladder. Gallstones are equivocal ultrasound would be confirmatory. Trace amount of free ascites. Stable hepatosplenomegaly. There is no improvement in the peripancreatic inflammatory changes/fluid which extends along the left anterior and posterior pararenal space. Focal fluid between the stomach and body of the pancreas measures 10 x 9 cm. Early pseudocyst formation or less likely acute necrotic collection can not be entirely excluded. This may simply represent simple uncomplicated fluid in this region and relatively stable compared to CT dated 12/14/2024. 2. Stable pleural-parenchymal disease left lower lobe This document has been electronically signed by: Yordan Denton MD on 12/22/2024 15:35:21
--- NOTE | ~2024-12-07 | CT_ITS ---
CLINICAL HISTORY: Pancreatitis, abdominal pain, R O necrosis abscess CT abdomen and pelvis with contrast Comparison: CT/SR - CT ABDOMEN PELVIS W IV CON - 12/14/24 11:44 EDT Findings: Small left pleural effusion with associated left basilar atelectasis similar to prior. Surrounding the pancreatic tail and extending inferiorly in the perirenal fat, and along the paracolic gutter into the pelvis there is peripherally enhancing multilobulated fluid which has slightly decreased since the prior exam. No pancreatic parenchymal devascularization, intraparenchymal lesion, or pancreatic duct dilatation. Distended gallbladder similar to prior. No inflammatory change. No bile duct dilatation. Abdominal solid organs otherwise unremarkable. No urolithiasis. No pneumoperitoneum or pneumatosis. Moderate stool in the right colon. No abdominal wall hernia. Normal appendix. Moderate distention of the urinary bladder. The bones are intact. IMPRESSION: 1. Extensive pancreatic pseudocyst disease has slightly improved since the prior exam. There is mild peripheral enhancement of the pseudocysts fluid. This could be due to localized inflammation, or infection. Correlate with clinical signs and symptoms. 2. No pancreatic necrosis. 3. Additional findings as above. This document has been electronically signed by: Gregg Mccoy MD on 12/24/2024 00:13:16
--- NOTE | ~2024-12-07 | CT_ITS ---
CLINICAL HISTORY: Pancreatitis,R O Necrosis Pyloric obstruction CT abdomen and pelvis with contrast Comparison: None provided Findings: There is mild atelectasis at the left lung base. Left pleural effusion has resolved. Once again there is extensive pancreatic pseudocyst formation unchanged from the prior examination. There is no definite evidence of pancreatic necrosis. There is no pancreatic ductal dilatation. The rest of the solid organs are normal. The gallbladder is normal. No bowel obstruction, pneumoperitoneum, or pneumatosis. Pelvic contents unremarkable. Normal appendix. Small amount of ascites previously noted has resolved. No acute fracture. IMPRESSION: 1. Extensive pancreatic complex pseudocyst relatively unchanged. 2. No evidence of pancreatic necrosis. 3. Interval resolution of left pleural effusion and ascites. This document has been electronically signed by: Bruno Rutherford MD on 12/29/2024 10:16:46
--- NOTE | ~2024-12-07 | US_ITS ---
EXAMINATION: US ABDOMEN LIMITED CLINICAL INFORMATION: Severe edematous interstitial pancreatitis. Rule out gallstones. COMPARISON: CT abdomen and pelvis 12/12/2024. TECHNIQUE: Real-time imaging of the right upper quadrant abdominal viscera. FINDINGS: LIVER: Incompletely evaluated. There is diffusely increased parenchymal echogenicity suggesting steatosis. GALLBLADDER: There is sludge layering within the lumen of the gallbladder. There are no discrete calculi identified. No significant gallbladder wall thickening, with the gallbladder wall measuring 3 mm. No significant pericholecystic fluid. The patient is tender across the entire abdomen, limiting evaluation for sonographic Rogers sign. COMMON BILE DUCT: Normal in caliber measuring 0.5 cm in diameter. FREE FLUID: Moderate free fluid seen in the right upper quadrant, US/US abdomen limited IMPRESSION: 1. No definite gallstones present. There is some layering sludge within the gallbladder with no clear evidence of acute cholecystitis. 2. No definite biliary dilatation present. 3. Partially imaged liver demonstrates diffuse fatty infiltration. Electronically signed by: Nino Burnette MD 12/16/2024 09:05 AM EDT
--- NOTE | ~2024-12-07 | CT_ITS ---
CLINICAL HISTORY: worsening abd pain panc CT abdomen and pelvis with contrast Comparison: CT/SR - CT ABDOMEN PELVIS W IV CON - 12/07/24 21:51 EDT Findings: Trace left effusion with overlying consolidation. There has been significant interval increase in the peripancreatic stranding, free fluid and phlegmon. There remains no pancreatic bed gas. No organized fluid collection or evidence of drainable abscess. Free fluid extends along the pericolic gutters and into the pelvis. The liver, gallbladder, spleen, adrenal glands, small and large bowel demonstrate no acute process. The bladder is decompressed. No acute osseous finding. Impression: Significant interval increase in the peripancreatic stranding, free fluid and phlegmon. No organized fluid collection or drainable abscess currently. This document has been electronically signed by: Teddy Poe MD on 12/12/2024 21:46:31
--- NOTE | ~2024-12-07 | CT_ITS ---
CLINICAL HISTORY: worsening pain CT abdomen and pelvis with contrast Comparison: CT/SR - CT ABDOMEN PELVIS W IV CON - 12/12/24 19:39 EDT Findings: Small left effusion with overlying consolidation, similar to prior. The liver, gallbladder, spleen, adrenal glands, kidneys, ureters and bladder appear normal. There is significant stranding, phlegmon and fluid about the pancreas, left kidney throughout the left mesentery and extending along the pericolic gutters into the pelvis. No organized fluid collection. No evidence of necrosis. The pancreatic parenchyma appears to enhance relatively symmetrically. The spleen enhances normally. No bowel obstruction or free air. Impression: Severe pancreatitis without evidence of necrosis. No current organized fluid collection. This document has been electronically signed by: Teddy Poe MD on 12/14/2024 12:40:08
[2024-12-07 20:09] VITALS: BP 151/97; PULSE 72; RESP 20; TEMP 36.4; O2SAT 96; BMI 38.4
--- NOTE | 2024-12-07 20:10 | ED.GENADULT ---
HPI - General Adult General Chief complaint: Abdominal Pain Stated complaint: kidney pain/back pain Time Seen by Provider: 12/07/24 20:54 Source: patient Mode of arrival: ambulatory Limitations: no limitations History of Present Illness ED Provider: Thuy Bell NP HPI narrative: Patient is a 21-year-old male who presents emergency department for evaluation. Reports over the past 2 days he has been experiencing bilateral flank pain and epigastric abdominal pain that is progressively worsening. Denies having nausea or vomiting. However he states he has been unable to tolerate oral intake as even sips of water cause him to have severe pain. He is also experiencing a diffuse headache without dizziness, vision changes, no neck pain or neck stiffness. He denies any recent illness. Denies any fevers or chills. Denies any genitourinary symptoms. Related Data Previous Rx's ?Medication ?Instructions ?Recorded insulin glargine 100 unit/mL (3 40 unit (0.4 mL) subcut QPM #3 mL 10/06/20 mL) subcutaneous pen (Lantus Solostar U-100 Insulin) insulin lispro 100 unit/mL 5 unit (0.05 mL) subcut TID #3 mL 10/06/20 subcutaneous pen (Humalog KwikPen (U-100) Insulin) cefuroxime axetil 250 mg tablet 250 mg PO BID 7 days #14 tabs 06/22/24 ondansetron 4 mg disintegrating 4 mg PO Q6-8H PRN nausea and 06/22/24 tablet vomiting #7 tabs Allergies Allergy/AdvReac Type Severity Reaction Status Date / Time shellfish derived Allergy Intermediate RASH Verified 12/07/24 20:11 [SHELLFISH DERIVED] Review of Systems Review of Systems: Yes all other systems are reviewed and are negative [facility] Past Medical History Attestation statement: The following information was validated with the patient. Source: old records reviewed Medical History Asthma No known health problems Family History Family History Maternal Grandmother Diabetes Social History Social History Household Members: Family Housing: Apartment Do you presently have visiting nurse or other home services: No Alcohol intake: never Comment: sleeping Smoked in Last 30 Days: No Use of substances other than those prescribed or required for medical reasons: No Advance Directives: No Advance Directives Information Provided: No service: No Current occupational status: employed Physical Exam ED Vital Signs: Vital Signs - 24 hr 12/07/24 20:09 12/07/24 20:57 12/07/24 22:31 Temperature 97.5 F Pulse Rate 72 74 66 Respiratory Rate 20 18 20 Blood Pressure 151/97 H 124/100 H 120/69 Pulse Oximetry 96 96 Oxygen Delivery Method Room Air Room Air 12/07/24 23:31 Temperature 97.9 F Pulse Rate 74 Respiratory Rate 16 Blood Pressure 113/78 Pulse Oximetry 95 Oxygen Delivery Method Room Air BMI result Body Mass Index 38.4 Appearance: Alert.?Oriented to person, place and time. No acute distress.?Normal affect. Eyes: Pupils equal, round and reactive to light.? ENT: Pharynx normal.?? Neck: Normal inspection.? Neck supple.?? CVS: Heart sounds normal. Normal heart rate and rhythm.? Pulses normal.?? Respiratory: No respiratory distress.? Lung sounds clear to auscultation bilaterally?? Abdomen: Soft with epigastric tenderness upon palpation. No CVA tenderness.. Normoactive bowel sounds. Skin: Skin warm and dry.? Normal skin color.? Extremities: No lower extremity edema.? No calf ttp? Neuro: Moves all extremities spontaneously. Sensation intact bilaterally. Ambulates with normal steady gait. Course Course Course Narrative: RME performed by Jeaneth Urrutia PA-C. Patient is a 29 year old assigned male at presenting to the emergency department with bilateral flank pain and abdominal pain. Detailed physical exam and review of systems are deferred to the baker paint. Labs ordered. Patient placed back in the waiting room pending room availability and results. Reevaluation(s) Reevaluation #1: CT of the abdomen and pelvis revealing acute pancreatitis with severe perinephric fat stranding no evidence of necrosis or peripancreatic fluid collection. Triglycerides are significantly elevated; flex 1289. Consulted with elevator erector Dr. De La Torre, patient will be admitted to ICU Medications Administered Generic Name Dose Route Start Last Admin Trade Name Freq PRN Reason Stop Dose Admin Insulin Human Regular 100 unit in 100 mls @ 0 mls/hr 12/07/24 21:45 12/07/24 23:21 Myxredlin IVCONT 3 unit/hr .Q0M [place] 3 mls/hr Titration Protocol Per Protocol Dextrose/Sodium Chloride 1,000 mls @ 200 mls/hr 12/07/24 21:45 12/07/24 22:56 D51/2ns IVCONT 200 mls/hr .Q5H [place] Administration Discontinued Medications Generic Name Dose Route Start Last Admin Trade Name Jocelin PRN Reason Stop Dose Admin Fentanyl 25 mcg 12/07/24 23:04 12/07/24 23:11 Fentanyl Citrate/Pf 100 Mcg/2 Ml Vial IVPUSH 12/07/24 23:05 25 mcg ONCE ONE Administration Protocol Hydromorphone HCl 0.5 mg 12/07/24 23:46 12/07/24 23:53 Hydromorphone Hcl 0.5 Mg/0.5 Ml Syringe IVPUSH 12/07/24 23:47 0.5 mg ONCE ONE Administration Protocol Potassium Chloride 10 meq in 100 mls @ 100 mls/hr 12/07/24 21:35 12/07/24 23:15 Potassium Chloride/H20 IV 12/07/24 22:34 Infused ONCE ONE Infusion Lactated Ringer's 1,000 mls @ 999 mls/hr 12/07/24 21:45 12/07/24 22:58 Lr IV 12/07/24 22:45 Infused .Q1H1M [place] Infusion Iohexol 85 ml 12/07/24 22:08 12/07/24 22:08 Iohexol 350 Mg/Ml 100 Ml Infus..Btl IV 12/07/24 22:09 85 ml ONCE ONE Administration Morphine Sulfate 4 mg 12/07/24 21:48 12/07/24 22:03 Morphine Sulfate 4 Mg/Ml Cartridge IVPUSH 12/07/24 21:49 4 mg ONCE ONE Administration Protocol Ondansetron HCl 4 mg 12/07/24 21:48 12/07/24 22:01 Ondansetron Hcl 4 Mg/2 Ml Vial IVPUSH 12/07/24 21:49 4 mg ONCE ONE Administration Medical Decision Making Medical Decision Making MDM Narrative: Patient is a 29-year-old male with past medical history of asthma, diabetes, DKA who presents emergency department for evaluation of bilateral flank and epigastric pain over the past 2 days inability to tolerate oral intake due to severity of pain. He appears uncomfortable at the time my evaluation, his epigastric tenderness on evaluation no CVA tenderness. He is afebrile without tachycardia tachypnea or hypoxia. No endorsed shortness of breath or chest pain. Patient had serum labs obtained prior to my assumption of care. On evaluation he has a mild leukopenia 4600, mild microcytic anemia that does not meet transfusion criteria, no thrombocytopenia. VBG with normal pH of 7.42, bicarb of 15. Sodium is 134, serum bicarb of 5 anion gap of 30 with serum glucose of 299. No SINDY. Mild elevation in LFT with AST 41, alk-phos 129. Lipase is 1531 and beta hydroxybutyrate is elevated at 3.64. Urinalysis with glucosuria concentrated no evidence of infection. At this time will initiate treatment as DKA, he appears dry he will receive 1 L LR, given glucose of 299 will defer insulin regular IV push dose and start infusion, nursing given strict instructions of when to start D5 half-normal saline 200 mL/hour once glucose 250, potassium is at 4.2 will provide 10 mEq IV. Morphine IV for pain mission as Zofran. Obtaining CT of the abdomen and pelvis concern for acute pancreatic etiology. I reviewed these findings with my attending Dr. Nicole, agrees with plan of care. 12/08/24 0000 Rachel Nicole MD I have examined the patient, and reviewed the care plan. I agree with the ZAHIRA workup and plan at this time. Differential Diagnosis Differential Diagnoses: The differential diagnosis associated with the presentation includes (See narrative above) Admission/Observation Consideration of admission/observation: Escalation of care including admission/observation considered Lab Data MDM Lab Attestation statement: I reviewed the patient's lab results. (See narrative above) 12/07/24 20:27 12/07/24 20:27 Labs: Lab Results 12/07/24 12/07/24 12/07/24 Range/Units 20:27 20:33 21:03 WBC 4.6 L (4.8-10.8) X10*3/uL RBC 5.47 (4.60-5.80) X10*6/uL Hgb 13.8 L (14.0-18.0) g/dl Hct 41.1 L (42.0-52.0) % MCV 75.1 L (80.0-98.0) fL MCH 25.2 L (27.0-33.0) pg MCHC 33.5 (31.0-36.0) g/dl RDW 13.5 (11.0-16.0) % Plt Count 351 (160-400) X10*3/uL MPV 10.4 (9.4-12.4) fL Immature Gran % (Auto) 0.7 H (0.0-0.4) % Neut % (Auto) 50.9 (45-73) % Lymph % (Auto) 31.7 (20-40) % [place] % (Auto) 13.6 H (2-11) % Eos % (Auto) 2.2 (0-4) % Baso % (Auto) 0.9 (0-2) % Lymph # (Auto) 1.5 (1.2-4.9) X10*3/uL [place] # (Auto) 0.6 (0.1-1.2) X10*3/uL Eos # (Auto) 0.1 (0.0-0.4) X10*3/uL Baso # (Auto) 0.0 (0.0-0.2) X10*3/uL Abs Immat Gran (auto) 0.03 (0.00-0.03) X10*3/uL Absolute Neuts (auto) 2.3 (2.0-8.3) x10*3/uL Absolute Nucleated RBC 0.000 (0.0-0.012) X10*3/uL Nucleated RBC % (auto) 0.0 (0.0-0.2) /100WBC Smear Tech's Comments VERIFIED VBG pH 7.42 (7.32-7.43) VBG pCO2 24 mmHg VBG pO2 99 mmHg VBG HCO3 15 L (22-26) mmol/L VBG O2 Saturation 97.0 % VBG Base Excess -6.3 mmol/L Sodium 134 L (135-145) mmol/L Potassium 4.2 (3.3-5.1) mmol/L Chloride 103 (96-108) mmol/L Carbon Dioxide 5 L* D (22-29) mmol/L Anion Gap 30 H (12-20) BUN 14 (9-16) mg/dL Creatinine 0.95 (0.5-1.4) mg/dL Estim Creat Clear Calc 174.3 Estimated GFR > 60 POC Glucose 294 H (60-115) mg/dL Random Glucose 299 H (60-115) mg/dL Calcium 9.4 (8.4-10.2) mg/dL Magnesium 1.6 (1.6-2.6) mg/dL Total Bilirubin 0.8 (0.0-1.0) mg/dL AST 41 H (5-37) U/L ALT 27 (0-40) U/L Alkaline Phosphatase 129 H (39-117) U/L Troponin I High Sens < 2.7 (<3.5-35.0) ng/L Total Protein 8.7 H (6.5-8.0) g/dL Albumin 4.0 (3.5-5.0) g/dL Triglycerides (<150) mg/dL Cholesterol (<200) mg/dL LDL Cholesterol, Calc HDL Cholesterol (>40) mg/dL Lipase 1531 H (8-78) U/L Beta-Hydroxybutyrate 3.64 H (0.02-0.27) mmol/L Urine Color Yellow Urine Appearance Clear Urine pH 5.5 (5.0-9.0) Ur Specific [place] >= 1.030 H (1.005-1.025) Urine Protein 300 (3+) H (Neg-Trace) mg/dL Urine Glucose (UA) >=1000 H (Negative) mg/dL Urine Ketones >=160 (Negative) mg/dL Urine Blood Trace H (Negative) Urine Nitrite Negative (Negative) Ur Leukocyte Esterase Negative (Negative) Urine RBC 3-5 H (0-2) /HPF Urine WBC 0-5 (0-5) /HPF Ur Squamous Epith Cells 6-10 (0-2) /HPF Urine Bacteria None Seen (None Seen) Hyaline Casts >20 (0-2) /LPF 12/07/24 12/07/24 12/07/24 Range/Units 21:45 22:15 23:14 WBC (4.8-10.8) X10*3/uL RBC (4.60-5.80) X10*6/uL Hgb (14.0-18.0) g/dl Hct (42.0-52.0) % MCV (80.0-98.0) fL MCH (27.0-33.0) pg MCHC (31.0-36.0) g/dl RDW (11.0-16.0) % Plt Count (160-400) X10*3/uL MPV (9.4-12.4) fL Immature Gran % (Auto) (0.0-0.4) % Neut % (Auto) (45-73) % Lymph % (Auto) (20-40) % [place] % (Auto) (2-11) % Eos % (Auto) (0-4) % Baso % (Auto) (0-2) % Lymph # (Auto) (1.2-4.9) X10*3/uL [place] # (Auto) (0.1-1.2) X10*3/uL Eos # (Auto) (0.0-0.4) X10*3/uL Baso # (Auto) (0.0-0.2) X10*3/uL Abs Immat Gran (auto) (0.00-0.03) X10*3/uL Absolute Neuts (auto) (2.0-8.3) x10*3/uL Absolute Nucleated RBC (0.0-0.012) X10*3/uL Nucleated RBC % (auto) (0.0-0.2) /100WBC Smear Tech's Comments VBG pH (7.32-7.43) VBG pCO2 mmHg VBG pO2 mmHg VBG HCO3 (22-26) mmol/L VBG O2 Saturation % VBG Base Excess mmol/L Sodium (135-145) mmol/L Potassium (3.3-5.1) mmol/L Chloride (96-108) mmol/L Carbon Dioxide (22-29) mmol/L Anion Gap (12-20) BUN (9-16) mg/dL Creatinine (0.5-1.4) mg/dL Estim Creat Clear Calc Estimated GFR POC Glucose 261 H 253 H (60-115) mg/dL Random Glucose (60-115) mg/dL Calcium (8.4-10.2) mg/dL Magnesium (1.6-2.6) mg/dL Total Bilirubin (0.0-1.0) mg/dL AST (5-37) U/L ALT (0-40) U/L Alkaline Phosphatase (39-117) U/L Troponin I High Sens (<3.5-35.0) ng/L Total Protein (6.5-8.0) g/dL Albumin (3.5-5.0) g/dL Triglycerides 5289 H (<150) mg/dL Cholesterol 718 H (<200) mg/dL LDL Cholesterol, Calc TNP HDL Cholesterol 16 L (>40) mg/dL Lipase (8-78) U/L Beta-Hydroxybutyrate (0.02-0.27) mmol/L Urine Color Urine Appearance Urine pH (5.0-9.0) Ur Specific [place] (1.005-1.025) Urine Protein (Neg-Trace) mg/dL Urine Glucose (UA) (Negative) mg/dL Urine Ketones (Negative) mg/dL Urine Blood (Negative) Urine Nitrite (Negative) Ur Leukocyte Esterase (Negative) Urine RBC (0-2) /HPF Urine WBC (0-5) /HPF Ur Squamous Epith Cells (0-2) /HPF Urine Bacteria (None Seen) Hyaline Casts (0-2) /LPF 12/07/ Range/Units 23:28 WBC (4.8-10.8) X10*3/uL RBC (4.60-5.80) X10*6/uL Hgb (14.0-18.0) g/dl Hct (42.0-52.0) % MCV (80.0-98.0) fL MCH (27.0-33.0) pg MCHC (31.0-36.0) g/dl RDW (11.0-16.0) % Plt Count (160-400) X10*3/uL MPV (9.4-12.4) fL Immature Gran % (Auto) (0.0-0.4) % Neut % (Auto) (45-73) % Lymph % (Auto) (20-40) % [place] % (Auto) (2-11) % Eos % (Auto) (0-4) % Baso % (Auto) (0-2) % Lymph # (Auto) (1.2-4.9) X10*3/uL [place] # (Auto) (0.1-1.2) X10*3/uL Eos # (Auto) (0.0-0.4) X10*3/uL Baso # (Auto) (0.0-0.2) X10*3/uL Abs Immat Gran (auto) (0.00-0.03) X10*3/uL Absolute Neuts (auto) (2.0-8.3) x10*3/uL Absolute Nucleated RBC (0.0-0.012) X10*3/uL Nucleated RBC % (auto) (0.0-0.2) /100WBC Smear Tech's Comments VBG pH (7.32-7.43) VBG pCO2 mmHg VBG pO2 mmHg VBG HCO3 (22-26) mmol/L VBG O2 Saturation % VBG Base Excess mmol/L Sodium (135-145) mmol/L Potassium (3.3-5.1) mmol/L Chloride (96-108) mmol/L Carbon Dioxide (22-29) mmol/L Anion Gap (12-20) BUN (9-16) mg/dL Creatinine (0.5-1.4) mg/dL Estim Creat Clear Calc Estimated GFR POC Glucose 268 H (60-115) mg/dL Random Glucose (60-115) mg/dL Calcium (8.4-10.2) mg/dL Magnesium (1.6-2.6) mg/dL Total Bilirubin (0.0-1.0) mg/dL AST (5-37) U/L ALT (0-40) U/L Alkaline Phosphatase (39-117) U/L Troponin I High Sens (<3.5-35.0) ng/L Total Protein (6.5-8.0) g/dL Albumin (3.5-5.0) g/dL Triglycerides (<150) mg/dL Cholesterol (<200) mg/dL LDL Cholesterol, Calc HDL Cholesterol (>40) mg/dL Lipase (8-78) U/L Beta-Hydroxybutyrate (0.02-0.27) mmol/L Urine Color Urine Appearance Urine pH (5.0-9.0) Ur Specific [place] (1.005-1.025) Urine Protein (Neg-Trace) mg/dL Urine Glucose (UA) (Negative) mg/dL Urine Ketones (Negative) mg/dL Urine Blood (Negative) Urine Nitrite (Negative) Ur Leukocyte Esterase (Negative) Urine RBC (0-2) /HPF Urine WBC (0-5) /HPF Ur Squamous Epith Cells (0-2) /HPF Urine Bacteria (None Seen) Hyaline Casts (0-2) /LPF Radiology Impression Discussion of test interpretation with radiology: I have reviewed the radiologist's reading. Radiologist Impression: CT abdomen and pelvis with contrast Comparison: None Findings: No consolidation or effusion. Severe peripancreatic fat stranding present. The pancreatic parenchyma appears to enhance normally. No organized peripancreatic fluid collections are present. The liver is enlarged. The liver appears normal in contour. The gallbladder, spleen, and bilateral adrenal glands are within normal limits for appearance. No hydronephrosis or hydroureter. Contrast is identified within the bilateral renal collecting systems. No bowel obstruction, pneumoperitoneum, or pneumatosis. Pelvic contents unremarkable. The bladder is underdistended. No focal bladder wall thickening. Normal appendix. No acute fracture visualized. IMPRESSION: 1. Acute pancreatitis with severe peripancreatic fat stranding. No CT evidence for pancreatic necrosis. No organized peripancreatic fluid collections are identified. 2. Mild hepatomegaly. Independent Historian Clinical information obtained from an independent historian. History obtained from or confirmed by: Spouse External Record Review External record reviewed: Outpatient record Chronic Conditions Patient?s care impacted by: Other (See narrative above) Critical Care Time Critical Care Time Critical Care Time: Yes Total Critical Care Time: 60 Attestation: I personally attest to this critical care time spent taking care of the patient exclusive of all other billable procedures was approximately 60 minutes including initial evaluation of patient, ordering tests, DKA management, EKG interpretation, medical consultation, documentation, re-evaluation. Discharge Plan Discharge Clinical Impression: DKA (diabetic ketoacidosis) Qualifiers: Diabetes mellitus complication detail: without coma Pancreatitis Qualifiers: Chronicity: acute Patient Disposition: Admitted As Inpatient Print Language: [place]
[2024-12-07 20:36] LABS: VBG Base Excess -6.3 mmol/L; VBG HCO3 15 mmol/L (22-26); VBG pCO2 24 mmHg; VBG pH 7.42 (7.32-7.43); VBG pO2 99 mmHg
[2024-12-07 20:36] LABS: Venous Blood Gas Refer to POC result
[2024-12-07 20:36] LABS: Appearance Urine Clear; Color Urine Yellow; Glucose Urine UA >=1000 mg/dL (Negative); Leukocyte Esterase Urine Negative (Negative); Nitrite Urine Negative (Negative); PH 5.5 (5.0-9.0); Specific Gravity - Urine >= 1.030 (1.005-1.025); UMIC TRIGGER UACC YES; Urine Blood Trace (Negative); Urine Ketones >=160 mg/dL (Negative); Urine Protein 300 (3+) mg/dL (Neg-Trace)
[2024-12-07 20:50] LABS: Bacteria Urine None Seen (None Seen); Hyaline Casts Urine >20 /LPF (0-2); WBC Urine 0-5 /HPF (0-5)
[2024-12-07 20:52] LABS: Beta-Hydroxybutyrate 3.64 mmol/L (0.02-0.27)
[2024-12-07 20:57] VITALS: BP 124/100; PULSE 74; RESP 18; O2SAT 96
[2024-12-07 21:07] LABS: Glucose, Whole Blood 294 mg/dL (60-115)
[2024-12-07 21:25] LABS: Basophils Percent Auto 0.9 % (0-2); Eosinophils Absolute Auto 0.1 X10*3/uL (0.0-0.4); Eosinophils Percent Auto 2.2 % (0-4); Hematocrit 41.1 % (42.0-52.0); Hemoglobin 13.8 g/dl (14.0-18.0); Imm Gran Abs Auto 0.03 X10*3/uL (0.00-0.03); Imm Gran Pct Auto 0.7 % (0.0-0.4); Lymphocytes Absolute Auto 1.5 X10*3/uL (1.2-4.9); Lymphocytes Percent Auto 31.7 % (20-40); MANUAL DIFF FLAG SCAN; Mean Corpuscular Hemoglobin 25.2 pg (27.0-33.0); Mean Corpuscular Volume 75.1 fL (80.0-98.0); Mean Platelet Volume 10.4 fL (9.4-12.4); Monocytes Absolute Auto 0.6 X10*3/uL (0.1-1.2); Monocytes Percent Auto 13.6 % (2-11); Neutrophils Absolute Auto 2.3 x10*3/uL (2.0-8.3); Neutrophils Percent Auto 50.9 % (45-73); Platelet Count 351 X10*3/uL (160-400); Red Blood Count 5.47 X10*6/uL (4.60-5.80); Red Cell Distribution Width 13.5 % (11.0-16.0); SCAN SMEAR FLAG 1; White Blood Count 4.6 X10*3/uL (4.8-10.8)
[2024-12-07 21:28] LABS: Mean Corpuscular HGB Conc 33.5 g/dl (31.0-36.0); SLIDE REVIEW VERIFIED
[2024-12-07 21:30] LABS: Alanine Aminotransferase 27 U/L (0-40); Alkaline Phosphatase 129 U/L (39-117); Anion Gap 30 (12-20); Aspartate Amino Transferase 41 U/L (5-37); Bilirubin Total 0.8 mg/dL (0.0-1.0); Blood Urea Nitrogen 14 mg/dL (9-16); Calcium 9.4 mg/dL (8.4-10.2); Carbon Dioxide 5 mmol/L (22-29); Chloride 103 mmol/L (96-108); Creatinine Clr Calc Pharmacy 174.3; Estimated Glomerular Filt Rate > 60; Glucose Random 299 mg/dL (60-115); Lipase 1531 U/L (8-78); Magnesium 1.6 mg/dL (1.6-2.6); Potassium 4.2 mmol/L (3.3-5.1); Sodium 134 mmol/L (135-145); Total Protein 8.7 g/dL (6.5-8.0)
--- NOTE | 2024-12-07 21:53 | ECG_ITS ---
Test Reason : ABD PAIN Blood Pressure : */* mmHG Vent. Rate : 68 BPM Atrial Rate : 68 BPM P-R Int : 178 ms QRS Dur : 98 ms QT Int : 392 ms P-R-T Axes : 35 17 -22 degrees QTcB Int : 416 ms Normal sinus rhythm Nonspecific T wave abnormality Abnormal ECG No previous ECGs available Referred By: Thuy Bell Electronically Signed By: FLORY YIP MD
[2024-12-07] MEDS: Lactated Ringers 1,000 ML 999 ML IV (22:00)
[2024-12-07] MEDS: ondansetron HCL 4 MG/2 ML VIAL IVPUSH (22:01)
[2024-12-07] MEDS: Morphine Sulfate 4 MG/ML CARTRIDGE IVPUSH (22:03)
[2024-12-07] MEDS: Potassium Chloride/H20 10 MEQ/100 ML PIGGYBACK 100 MEQ IV (22:05)
[2024-12-07] MEDS: iohexoL 350 MG/ML 100 ML INFUS..BTL 85 ML IV (22:08)
[2024-12-07 22:15] LABS: HDL Cholesterol 16 mg/dL (>40); Triglycerides 5289 mg/dL (<150)
[2024-12-07 22:19] LABS: Glucose, Whole Blood 261 mg/dL (60-115)
[2024-12-07] MEDS: Insulin Regular/NS 100 UNIT/100 ML PLAST..BAG IVCONT (22:20)
[2024-12-07 22:28] LABS: Cholesterol 718 mg/dL (<200)
[2024-12-07 22:31] VITALS: BP 120/69; PULSE 66; RESP 20
[2024-12-07] MEDS: Dextrose 5 % and 0.45 % NaCl 1,000 ML 200 ML IVCONT (22:56)
--- NOTE | 2024-12-07 23:02 | PC.NURSE ---
COMMUNITY INTEGRATION SPECIALIST [facility] notified via [facility] [employer] pt pain has returned to 02/16
[2024-12-07] MEDS: fentaNYL citrate/PF 100 MCG/2 ML VIAL 25 MCG IVPUSH (23:11)
[2024-12-07 23:18] LABS: Glucose, Whole Blood 253 mg/dL (60-115)
[2024-12-07 23:30] LABS: Troponin-I High Sensitivity < 2.7 ng/L (<3.5-35.0)
[2024-12-07 23:31] VITALS: BP 113/78; PULSE 74; RESP 16; TEMP 36.6; O2SAT 95
[2024-12-07 23:36] LABS: Glucose, Whole Blood 268 mg/dL (60-115)
[2024-12-07] MEDS: HYDROmorphone HCl 0.5 MG/0.5 ML SYRINGE IVPUSH (23:53)
[2024-12-08] VITALS (24 sets, daily range): BP systolic 86–132; BP diastolic 43–71; PULSE 71–100; RESP 12–28; TEMP 36.3–36.9; O2SAT 90–96; BMI 38.6
--- NOTE | 2024-12-08 | ECG_ITS ---
Test Reason : Possible cva Blood Pressure : */* mmHG Vent. Rate : 89 BPM Atrial Rate : 89 BPM P-R Int : 140 ms QRS Dur : 88 ms QT Int : 376 ms P-R-T Axes : 11 66 -17 degrees QTcB Int : 457 ms Normal sinus rhythm Nonspecific ST and T wave abnormality Borderline ECG When compared with ECG of 07-Dec-2024 22:02, No significant change was found Referred By: Juan R Estrella Electronically Signed By: MALLORY BOYCE
[2024-12-08] MEDS: ondansetron HCL 4 MG/2 ML VIAL IVPUSH ×3 (00:05→19:26)
[2024-12-08 00:31] LABS: Glucose, Whole Blood 272 mg/dL (60-115)
--- NOTE | 2024-12-08 00:37 | PM.CCHP ---
History of Present Illness Date of Service: 12/08/24 <Viridiana Wylie NP - Last Filed: 12/08/24 01:58> Attending physician on admission: Melvin De La Torre <Viridiana Wylie NP - Last Filed: 12/08/24 01:58> Chief Complaint: Abdominal pain <Viridiana Wylie NP - Last Filed: 12/08/24 01:58> The patient is a 29-year-old male with a past medical history of diabetes mellitus, asthma and obesity who presented to emergency department with bilateral flank pain and abdominal pain for 2 days.? Patient also reported poor appetite, severe pain even with sips of water. He is also experiencing a diffuse headache without dizziness, vision changes, no neck pain or neck stiffness. He denies any recent illness. Denies any fevers or chills. Denies any genitourinary symptoms. In the emergency department laboratory data was significant for WBC 4.6, serum sodium 134, serum bicarb 5, anion gap 30, alk phos 129, AST 41, lipase was 1531, beta hydroxybutyrate 3.64, triglycerides 5289 and total cholesterol 718. IMAGING: ABDOMINAL CT:? Consistent with acute pancreatitis with severe pancreatic fat stranding.? No evidence of necrosis/fluid collection <Viridiana Wylie NP - Last Filed: 12/08/24 01:58> Review of Systems Review of Systems: Yes all other systems are reviewed and are negative <Viridiana Wylie NP - Last Filed: 12/08/24 01:58> [facility] Past Medical History Medical History: Medical History Diabetes mellitus Asthma No known health problems <Viridiana Wylie NP - Last Filed: 12/08/24 01:58> Family History Family History: Family History Maternal Grandmother Diabetes <Viridiana Wylie NP - Last Filed: 12/08/24 01:58> Social History Social History: Social History Household Members: Significant Other Housing: Apartment Do you presently have visiting nurse or other home services: No Alcohol intake: never Comment: sleeping Patient Tobacco Use Status: Never used Tobacco Smoked in Last 30 Days: No Use of substances other than those prescribed or required for medical reasons: No Have you been hit, kicked, punched, or otherwise hurt by someone within the past year? If so, by whom?: No Do you feel safe in your current relationship?: Yes Is there a partner from a previous relationship who is making you feel unsafe now?: No Are you made to feel afraid or neglected: No Advance Directives: No Advance Directives Information Provided: No Advance Directives on File: No Do you have a plan to hurt others: No Plan Recently lost weight without trying: No Eating poorly because of decreased appetite: No Nutrition Risks: No Nutritional Risk service: No Current occupational status: employed <Viridiana Wylie NP - Last Filed: 12/08/24 01:58> Meds Allergies/Adverse reactions: Allergies Allergy/AdvReac Type Severity Reaction Status Date / Time shellfish derived Allergy Intermediate RASH Verified 12/07/24 20:11 [SHELLFISH DERIVED] <Viridiana Wylie NP - Last Filed: 12/08/24 01:58> Active Medications: Current Medications Enoxaparin Sodium (Enoxaparin Sodium 40 Mg/0.4 Ml Syringe) 40 mg SUBCUT Q24H [facility] Insulin Human Regular (Myxredlin) 100 unit in 100 mls @ 0 mls/hr IVCONT .Q0M [place]; Protocol Last Titration: 12/08/24 00:27 Dose: 4 unit/hr, 4 mls/hr <Viridiana Wylie NP - Last Filed: 12/08/24 01:58> Home medications: Home Medications ?Medication ?Instructions ?Recorded ?Confirmed ?Last Taken ?Type metformin 750 mg tablet,extended 750 mg PO BID 12/08/24 12/08/24 12/06/24 History release 24 hr <Viridiana Wylie NP - Last Filed: 12/08/24 01:58> Physical Exam Vital Signs: Vital Signs: Last Vital Signs Temp 97.9 F 12/07/24 23:31 Pulse 74 12/07/24 23:31 Resp 16 12/07/24 23:31 BP 113/78 12/07/24 23:31 Pulse Ox 95 12/07/24 23:31 O2 Del Method Room Air 12/07/24 23:31 BMI result Body Mass Index 38.4 <Viridiana Wylie NP - Last Filed: 12/08/24 01:58> ?General:? Alert oriented x3 no acute distress.? Speaking full sentences.? Speech is well articulated, thought process is coherent.? Following all commands. ?HEENT:? Head is normocephalic, atraumatic, pupils equal round reactive to light accommodation bilaterally.? Extraocular movements appear intact.? Buccal mucosa is dry, Neck is supple ?Cardiac:? Sinus tachycardia, Clear S1-S2, no murmurs rubs or gallops. ?Pulmonary:? Clear to auscultation, no wheezes, rales or rhonchi. ?Abdomen: ?Diffuse abdominal pain, reports worse in the epigastric region and bilateral flank. Abdomen soft, nondistended ?Musculoskeletal:? Moving all 4 extremities upon request a major joints, there is no crepitus or tenderness.? The strength is 5/5 bilaterally and throughout all 4 extremities.? Gait not assessed at this point. ?Neurologic:? cranial nerves 2-12 are grossly intact.? No focal deficits noted.Motor strength as above.?? ?Skin:? Intact, no lesions, edema, erythema, clubbing or cyanosis.? No ulcers. Vascular:? 2+ pulses upper and lower extremities distally.? <Viridiana Wylie NP - Last Filed: 12/08/24 01:58> Results Labs CBC and Chem 7: 12/08/24 05:47 12/08/24 05:47 <Viridiana Wylie NP - Last Filed: 12/08/24 01:58> Labs: Laboratory Results - last 24 hr 12/07/24 12/07/24 12/07/24 20:27 20:33 21:03 MCV 75.1 L MCH 25.2 L MCHC 33.5 RDW 13.5 Plt Count 351 MPV 10.4 Immature Gran % (Auto) 0.7 H Neut % (Auto) 50.9 Lymph % (Auto) 31.7 [place] % (Auto) 13.6 H Eos % (Auto) 2.2 Baso % (Auto) 0.9 Lymph # (Auto) 1.5 [place] # (Auto) 0.6 Eos # (Auto) 0.1 Baso # (Auto) 0.0 Abs Immat Gran (auto) 0.03 Absolute Neuts (auto) 2.3 Absolute Nucleated RBC 0.000 Nucleated RBC % (auto) 0.0 Smear Tech's Comments VERIFIED VBG pH 7.42 VBG pCO2 24 VBG pO2 99 VBG HCO3 15 L VBG O2 Saturation 97.0 VBG Base Excess -6.3 Anion Gap 30 H Estim Creat Clear Calc 174.3 Estimated GFR > 60 POC Glucose 294 H Random Glucose 299 H Calcium 9.4 Magnesium 1.6 Total Bilirubin 0.8 AST 41 H ALT 27 Alkaline Phosphatase 129 H Troponin I High Sens < 2.7 Total Protein 8.7 H Albumin 4.0 Triglycerides Cholesterol LDL Cholesterol, Calc HDL Cholesterol Lipase 1531 H Beta-Hydroxybutyrate 3.64 H Urine Color Yellow Urine Appearance Clear Urine pH 5.5 Ur Specific [place] >= 1.030 H Urine Protein 300 (3+) H Urine Glucose (UA) >=1000 H Urine Ketones >=160 Urine Blood Trace H Urine Nitrite Negative Ur Leukocyte Esterase Negative Urine RBC 3-5 H Urine WBC 0-5 Ur Squamous Epith Cells 6-10 Urine Bacteria None Seen Hyaline Casts >20 12/07/24 12/07/24 12/07/24 21:45 22:15 23:14 MCV MCH MCHC RDW Plt Count MPV Immature Gran % (Auto) Neut % (Auto) Lymph % (Auto) [place] % (Auto) Eos % (Auto) Baso % (Auto) Lymph # (Auto) [place] # (Auto) Eos # (Auto) Baso # (Auto) Abs Immat Gran (auto) Absolute Neuts (auto) Absolute Nucleated RBC Nucleated RBC % (auto) Smear Tech's Comments VBG pH VBG pCO2 VBG pO2 VBG HCO3 VBG O2 Saturation VBG Base Excess Anion Gap Estim Creat Clear Calc Estimated GFR POC Glucose 261 H 253 H Random Glucose Calcium Magnesium Total Bilirubin AST ALT Alkaline Phosphatase Troponin I High Sens Total Protein Albumin Triglycerides 5289 H Cholesterol 718 H LDL Cholesterol, Calc TNP HDL Cholesterol 16 L Lipase Beta-Hydroxybutyrate Urine Color Urine Appearance Urine pH Ur Specific [place] Urine Protein Urine Glucose (UA) Urine Ketones Urine Blood Urine Nitrite Ur Leukocyte Esterase Urine RBC Urine WBC Ur Squamous Epith Cells Urine Bacteria Hyaline Casts 12/07/24 12/08/24 23:28 00:26 MCV MCH MCHC RDW Plt Count MPV Immature Gran % (Auto) Neut % (Auto) Lymph % (Auto) [place] % (Auto) Eos % (Auto) Baso % (Auto) Lymph # (Auto) [place] # (Auto) Eos # (Auto) Baso # (Auto) Abs Immat Gran (auto) Absolute Neuts (auto) Absolute Nucleated RBC Nucleated RBC % (auto) Smear Tech's Comments VBG pH VBG pCO2 VBG pO2 VBG HCO3 VBG O2 Saturation VBG Base Excess Anion Gap Estim Creat Clear Calc Estimated GFR POC Glucose 268 H 272 H Random Glucose Calcium Magnesium Total Bilirubin AST ALT Alkaline Phosphatase Troponin I High Sens Total Protein Albumin Triglycerides Cholesterol LDL Cholesterol, Calc HDL Cholesterol Lipase Beta-Hydroxybutyrate Urine Color Urine Appearance Urine pH Ur Specific [place] Urine Protein Urine Glucose (UA) Urine Ketones Urine Blood Urine Nitrite Ur Leukocyte Esterase Urine RBC Urine WBC Ur Squamous Epith Cells Urine Bacteria Hyaline Casts <Viridiana Wylie NP - Last Filed: 12/08/24 01:58> Assessment and Plan (1) Acute pancreatitis: Status: Acute <Viridiana Wylie NP - Last Filed: 12/08/24 01:58> (2) Hypertriglyceridemia: Status: Acute <Viridiana Wylie NP - Last Filed: 12/08/24 01:58> (3) Metabolic acidosis: Status: Acute <Viridiana Wylie NP - Last Filed: 12/08/24 01:58> (4) DKA (diabetic ketoacidosis): Qualifiers: Diabetes mellitus complication detail: without coma <Viridiana Wylie NP - Last Filed: 12/08/24 01:58> Status: Acute <Viridiana Wylie NP - Last Filed: 12/08/24 01:58> (5) Diabetes mellitus: Status: Acute <Viridiana Wylie NP - Last Filed: 12/08/24 01:58> (6) Hypotension: Status: Acute <Viridiana Wylie NP - Last Filed: 12/08/24 01:58> (7) Leukopenia: Status: Acute <Viridiana Wylie NP - Last Filed: 12/08/24 01:58> 29-year-old male with a past medical history of diabetes mellitus, asthma and obesity admitted to ICU for management of acute pancreatitis with hypertriglyceridemia and DKA Neuro:? No acute issues Cardiac:?? Hypotension:? Patient in a lot of pain, requiring high amounts of pain medications. ?Hypotension related to pain medications no evidence of severe sepsis lactic is negative. Pulmonary:? ?No acute issue Renal:?? ?No acute issues GI:?? Acute Pancreatitis with? hypertriglyceridemia-? lipase 1531, triglycerides 5289 CT of the abdomen is consistent with pancreatitis, with evidence of necrosis.? Started on insulin drip. ?We will continue insulin drip until triglycerides are <1000. ?Continue NPO status Transaminitis:?. Acute elevation in transaminitis likely from acute pancreatitis. Will add coags nausea and vomiting- from pancreatitis. Continue Zofran p.r.n., Endo:?? Diabetes mellitus/ diabetic ketoacidosis- ? patient in DKA due to poor p.o. intake and unable to take metformin from acute pancreatitis from hypertriglyceridemia. Will continue insulin drip until gap is close/ triglycerides are under 1000. Heme/Onc:? No acute? issues ID: Leukopenia:? Likely due to acute pancreatitis no evidence of severe bacterial infection.? No need for antibiotics. ? Psych:?? No acute issues Diet: NPO Prophylaxis:? ?Subcu Lovenox Code? status: ? ? FULL CODE.? Critical care time: x 60 min of critical care time? Case discussed with attending Dr De La Torre <Viridiana Wylie COAL MINE INSPECTOR - Last Filed: 12/08/24 01:58> 29-year-old male with a past medical history of diabetes mellitus, asthma and obesity admitted to ICU for management of acute pancreatitis with hypertriglyceridemia and DKA Acute Pancreatitis secondary to hypertriglyceridemia-? lipase 1531, triglycerides 5289 CT of the abdomen is consistent with pancreatitis, without any evidence of necrosis.? Started on insulin drip. ?We will continue insulin drip until triglycerides are <1000. ? Continue NPO status except for ice chips Transaminitis:? Acute elevation in transaminitis likely from acute pancreatitis. Will add coags Diabetes mellitus/ diabetic ketoacidosis- ? DKA possibly secondary to pancreatitis, patient is also not on insulin with HbA1c 12.4. However his HbA1c was 6.5 in May 2024, possibly patient needs to be discharged home on insulin. Continue insulin drip, closely monitor BMP Mag and phos q.4 hours Titrate insulin as per blood sugars given hours Pain: Patient complains of constant pain currently on Dilaudid 0.5 q.2 hours, we will increase the dose to 1 mg q.12 hours if needed or at Precedex Hypotension:? Secondary to pain medications and volume depletion from pancreatitis and DKA. ? There is no evidence of severe sepsis lactic is negative, no source of infection. Prophylaxis:? ?Subcu Lovenox Code? status: ? ? FULL CODE.? Critical care time: x 60 min of critical care time? Case discussed with attending Dr De La Torre <Melvin De La Torre MD - Last Filed: 12/08/24 09:14>
[2024-12-08 00:55] LABS: Venous Blood Gas Refer to POC result
[2024-12-08 00:56] LABS: VBG Base Excess -8.3 mmol/L; VBG HCO3 13 mmol/L (22-26); VBG pCO2 20 mmHg; VBG pH 7.42 (7.32-7.43); VBG pO2 95 mmHg
[2024-12-08] MEDS: Dextrose 5 % and Lactated Ring 1,000 ML 150 ML IVCONT ×3 (01:10→16:52)
[2024-12-08] MEDS: Insulin Regular/NS 100 UNIT/100 ML PLAST..BAG IVCONT (01:14)
[2024-12-08 01:15] LABS: Glucose, Whole Blood 280 mg/dL (60-115)
[2024-12-08] MEDS: HYDROmorphone HCl 1 MG/ML SYRINGE IVPUSH (01:17)
[2024-12-08 01:51] LABS: Lactic Acid 0.8 mmol/L (0.5-2.0)
[2024-12-08 01:52] LABS: Anion Gap 27 (12-20); Blood Urea Nitrogen 12 mg/dL (9-16); Calcium 8.1 mg/dL (8.4-10.2); Carbon Dioxide 7 mmol/L (22-29); Chloride 105 mmol/L (96-108); Creatinine Clr Calc Pharmacy 204.4; Estimated Glomerular Filt Rate > 60; Glucose Random 281 mg/dL (60-115); Magnesium 1.5 mg/dL (1.6-2.6); Phosphorus 3.2 mg/dL (2.7-4.5); Potassium 4.5 mmol/L (3.3-5.1); Sodium 134 mmol/L (135-145)
[2024-12-08 02:08] LABS: Glucose, Whole Blood 297 mg/dL (60-115)
[2024-12-08] MEDS: fentaNYL citrate/PF 100 MCG/2 ML VIAL 50 MCG IVPUSH (02:15)
[2024-12-08] MEDS: Sodium Bicarbonate 8.4% 50 MEQ/50 ML SYRINGE IVPUSH (02:38)
[2024-12-08] MEDS: Magnesium Sulfate/H2O 2 GM/50 ML PIGGYBACK IV ×2 (02:38→19:46)
[2024-12-08 03:03] LABS: Glucose, Whole Blood 291 mg/dL (60-115)
[2024-12-08 03:50] LABS: Estimated Average Glucose 309 mg/dL; Hemoglobin A1c % 12.4 % (<6.0)
[2024-12-08] MEDS: HYDROmorphone HCl 1 MG/ML SYRINGE 0.5 MG IVPUSH ×8 (03:50→21:37)
[2024-12-08 03:57] LABS: Glucose, Whole Blood 299 mg/dL (60-115)
[2024-12-08 05:13] LABS: Glucose, Whole Blood 305 mg/dL (60-115)
[2024-12-08] MEDS: Insulin Regular/NS 100 UNIT/100 ML PLAST..BAG 8 UNIT IVCONT (05:34)
[2024-12-08 05:53] LABS: VBG Base Excess -7.8 mmol/L; VBG HCO3 14 mmol/L (22-26); VBG pCO2 22 mmHg; VBG pH 7.41 (7.32-7.43); VBG pO2 83 mmHg
[2024-12-08 05:54] LABS: MANUAL DIFF FLAG NO
[2024-12-08 05:56] LABS: Basophils Percent Auto 0.6 % (0-2); Hematocrit 41.8 % (42.0-52.0); Hemoglobin 15.5 g/dl (14.0-18.0); Imm Gran Abs Auto 0.02 X10*3/uL (0.00-0.03); Imm Gran Pct Auto 0.4 % (0.0-0.4); Lymphocytes Absolute Auto 0.3 X10*3/uL (1.2-4.9); Lymphocytes Percent Auto 6.6 % (20-40); Mean Corpuscular HGB Conc 37.1 g/dl (31.0-36.0); Mean Corpuscular Hemoglobin 27.9 pg (27.0-33.0); Mean Corpuscular Volume 75.2 fL (80.0-98.0); Mean Platelet Volume 10.5 fL (9.4-12.4); Monocytes Absolute Auto 0.4 X10*3/uL (0.1-1.2); Monocytes Percent Auto 7.7 % (2-11); Neutrophils Absolute Auto 4.4 x10*3/uL (2.0-8.3); Neutrophils Percent Auto 84.7 % (45-73); Platelet Count 371 X10*3/uL (160-400); Red Blood Count 5.56 X10*6/uL (4.60-5.80); Red Cell Distribution Width 13.7 % (11.0-16.0); White Blood Count 5.2 X10*3/uL (4.8-10.8)
[2024-12-08 05:56] LABS: Venous Blood Gas Refer to POC result
[2024-12-08 06:05] LABS: Glucose, Whole Blood 295 mg/dL (60-115)
[2024-12-08 06:18] LABS: Prothrombin Time 11.9 SEC (10.9-12.4)
[2024-12-08 06:35] LABS: Triglycerides 3648 mg/dL (<150)
--- NOTE | 2024-12-08 06:37 | PC.NURSE ---
This is a 29 year old male admitted to ICU on 12/07/24. Patient reports experiencing bilateral flank pain and epigastric abdominal pain progressively worsening for 2 days. Denies nausea / vomiting. Patient primarily bhutanese speaking, GF at bedside and speaks estonian. Upon admission pt crying and screaming in pain on arrival . Dilaudid administered for pain with good effect. Patient has hx of diabetes and is admitted with acute pancreatitis from hypertriglyceridemia. Insulin drip infusing . POC monitoring Q1h. Patient A&Ox4, VSS, LS clear on room air. Sinus rhythm on telemetry. Urinates in urinal . Last BM 12/07. Skin intact, resting at this time, calm and pleasant.
[2024-12-08 06:52] LABS: Alanine Aminotransferase 21 U/L (0-40); Albumin Level 3.4 g/dL (3.5-5.0); Alkaline Phosphatase 105 U/L (39-117); Anion Gap 27 (12-20); Aspartate Amino Transferase 72 U/L (5-37); Bilirubin Total 0.7 mg/dL (0.0-1.0); Blood Urea Nitrogen 9 mg/dL (9-16); Calcium 7.5 mg/dL (8.4-10.2); Carbon Dioxide 6 mmol/L (22-29); Chloride 106 mmol/L (96-108); Creatinine Clr Calc Pharmacy 204.9; Estimated Glomerular Filt Rate > 60; Glucose Random 301 mg/dL (60-115); Magnesium 1.7 mg/dL (1.6-2.6); Phosphorus 2.9 mg/dL (2.7-4.5); Potassium 4.6 mmol/L (3.3-5.1); Sodium 134 mmol/L (135-145); Total Protein 8.1 g/dL (6.5-8.0)
[2024-12-08 07:09] LABS: Glucose, Whole Blood 290 mg/dL (60-115)
--- NOTE | 2024-12-08 07:56 | PHA.MEDREC ---
Addendum entered by Rudy Gerard PharmD 12/08/24 08:15: reviewed Original Note: Pharmacy Consult ? Medication Reconciliation Pharmacy has completed the medication reconciliation. Spoke with significant other at bedside. She reports patient is not taking glipizide or any OTC medications. Metformin last apple picker per claims was 04/15/24 x90DS, last taken 12/06.
[2024-12-08] MEDS: Calcium Gluconate/NaCl,Iso-Osm 1 GM/50 ML PLAST..BAG IV ×2 (08:11→21:48)
[2024-12-08] MEDS: 0.9 % Sodium Chloride Flush 3 ML SYRINGE IVFLUSH ×3 (08:14→23:58)
[2024-12-08] MEDS: Enoxaparin Sodium 40 MG/0.4 ML SYRINGE SUBCUT (08:17)
[2024-12-08 09:13] LABS: Glucose, Whole Blood 298 mg/dL (60-115)
[2024-12-08 09:13] LABS: Glucose, Whole Blood 264 mg/dL (60-115)
[2024-12-08] MEDS: Sodium Bicarbonate 8.4% 150 MEQ in Dextrose 5 % 850 ML IV (09:25)
[2024-12-08] MEDS: Lactated Ringers 1,000 ML 999 ML IV (09:44)
[2024-12-08 10:07] LABS: Glucose, Whole Blood 219 mg/dL (60-115)
[2024-12-08 11:17] LABS: Glucose, Whole Blood 209 mg/dL (60-115)
[2024-12-08] MEDS: Insulin Regular/NS 100 UNIT/100 ML PLAST..BAG 20 UNIT IVCONT (11:20)
--- NOTE | 2024-12-08 11:29 | MHC.CM.PN ---
Met with pt, brother and girlfriend to review d/c planning needs: pt lethargic, deferring questions to family: pt resides w/family, works, has no services or DME. Pt used to see a provider at the [facility] but was reassigned and doesn't have a current MD. Pt would like a [facility] provider. HCP declined, family to transport pt to home. Family requesting a letter for work upon pt d/c. CM to follow.
[2024-12-08] MEDS: dexmedeTOMIDine HCL/NS 400 MCG/100 ML PLAST..BAG 17.5 MCG IVCONT (12:04)
[2024-12-08 12:29] LABS: Glucose, Whole Blood 172 mg/dL (60-115)
[2024-12-08 12:41] LABS: Anion Gap 20 (12-20); Blood Urea Nitrogen 9 mg/dL (9-16); Calcium 7.5 mg/dL (8.4-10.2); Carbon Dioxide 14 mmol/L (22-29); Chloride 107 mmol/L (96-108); Creatinine Clr Calc Pharmacy 176.5; Estimated Glomerular Filt Rate > 60; Glucose Random 236 mg/dL (60-115); Magnesium 1.6 mg/dL (1.6-2.6); Potassium 3.9 mmol/L (3.3-5.1); Sodium 137 mmol/L (135-145)
[2024-12-08 13:08] LABS: Glucose, Whole Blood 172 mg/dL (60-115)
[2024-12-08 13:59] LABS: Anion Gap 22 (12-20); Blood Urea Nitrogen 9 mg/dL (9-16); Carbon Dioxide 12 mmol/L (22-29); Chloride 107 mmol/L (96-108); Creatinine Clr Calc Pharmacy 134.9; Estimated Glomerular Filt Rate > 60; Glucose Random 153 mg/dL (60-115); Magnesium 1.6 mg/dL (1.6-2.6); Potassium 3.9 mmol/L (3.3-5.1); Sodium 137 mmol/L (135-145)
[2024-12-08 14:11] LABS: Triglycerides 3579 mg/dL (<150)
[2024-12-08 14:20] LABS: Glucose, Whole Blood 145 mg/dL (60-115)
[2024-12-08 15:04] LABS: Glucose, Whole Blood 159 mg/dL (60-115)
[2024-12-08] MEDS: Calcium Gluconate/NaCl,Iso-Osm 2 GM/100 ML PLAST..BAG IV (15:25)
--- NOTE | 2024-12-08 15:57 | PM.EVENT ---
Event Note Date of Service: 12/08/24 Event Note: A Stroke alert was called around 3:10 pm for left sided facial twitching and weakness. The patient was seen and evaluated at the time He reported facial numbness and benny-oral numbness , felt twitching in his neck and left side of his face. he was complaining mainly of abdominal pain. He also reported history of migraine CN2-12 were examined and all within normal bilaterally showing good bilateral strength in upper and lower extremities EKG done showing normal sinus rhythm BP low on 80s/50s Calcium level check around noon time of 7 , dropping since admission To give IV Calcium and repeat blood work at 6 PM to Add Albumin infusion given Low BP CT scan of head Stroke nurse to complete the score Time Spent With Patient Time: Total time managing care of this patient today ____ minutes.
[2024-12-08 16:01] LABS: Glucose, Whole Blood 134 mg/dL (60-115)
[2024-12-08 16:07] LABS: Albumin Level 3.1 g/dL (3.5-5.0)
[2024-12-08 16:59] LABS: Glucose, Whole Blood 136 mg/dL (60-115)
[2024-12-08 17:15] LABS: Anion Gap 22 (12-20); Blood Urea Nitrogen 9 mg/dL (9-16); Calcium 7.6 mg/dL (8.4-10.2); Carbon Dioxide 11 mmol/L (22-29); Chloride 107 mmol/L (96-108); Creatinine Clr Calc Pharmacy 93.2; Estimated Glomerular Filt Rate 46; Glucose Random 115 mg/dL (60-115); Magnesium 1.5 mg/dL (1.6-2.6); Phosphorus 2.1 mg/dL (2.7-4.5); Potassium 3.7 mmol/L (3.3-5.1); Sodium 136 mmol/L (135-145)
[2024-12-08] MEDS: Insulin Regular/NS 100 UNIT/100 ML PLAST..BAG 11 UNIT IVCONT (17:35)
[2024-12-08 18:05] LABS: Alanine Aminotransferase 16 U/L (0-40); Albumin Level 3.1 g/dL (3.5-5.0); Alkaline Phosphatase 85 U/L (39-117); Anion Gap 23 (12-20); Aspartate Amino Transferase 47 U/L (5-37); Bilirubin Total 0.8 mg/dL (0.0-1.0); Blood Urea Nitrogen 11 mg/dL (9-16); Calcium 7.6 mg/dL (8.4-10.2); Carbon Dioxide 12 mmol/L (22-29); Chloride 107 mmol/L (96-108); Creatinine Clr Calc Pharmacy 90.2; Estimated Glomerular Filt Rate 44; Glucose Random 116 mg/dL (60-115); Potassium 3.8 mmol/L (3.3-5.1); Sodium 138 mmol/L (135-145); Total Protein 6.9 g/dL (6.5-8.0)
[2024-12-08 18:10] LABS: Glucose, Whole Blood 128 mg/dL (60-115)
[2024-12-08 18:14] LABS: C Reactive Protein 14.19 mg/dL (< or = 0.50)
[2024-12-08 18:18] LABS: Magnesium 1.5 mg/dL (1.6-2.6)
[2024-12-08 18:30] LABS: Lactic Acid 1.4 mmol/L (0.5-2.0)
[2024-12-08 18:53] LABS: Erythrocyte Sedimentation Rate 19 MM/HR (0-15)
[2024-12-08 19:04] LABS: Glucose, Whole Blood 151 mg/dL (60-115)
--- NOTE | 2024-12-08 19:19 | PC.NURSE ---
assumed care on 0700 on 12/08/24 patient stable and on room air in first assessment. patients primary complaint is pain to abdomen with no nausea or vomiting. all meds per MAR, see shift assessment for full head to toe. at approx 15:00, patient sat up in bed on RN request. this RN noted patient the patients L side of face to be pulling Left and neck twitching. Dr. De La Torre made aware and code stroke . GRAHAM Lin, Nursing Supervisor [employer], RT, and this RN at bedside. MD stated probable hypocalcemia, but continue with code stroke per protocol. CT of head obtained. Repeat Labs done. Calcium gluconate given per SEP. Patient symptoms subsided post CT scan and passed nursing bedside swallow. Stroke education ongoing. Additionally, throughout shift blood pressures marginal and trending down. held dilaudid and titrated dex off to confirmed MAP goal with . stated MAP goal of 60. and MD okayed dilaudid when MAP was 65. handed off 1900 on 12/08/24
[2024-12-08] MEDS: Potassium Phosphate/NS 15 MMOL/250 ML PLAST..BAG 62.5 MMOL IV (19:56)
[2024-12-08 20:01] LABS: Glucose, Whole Blood 152 mg/dL (60-115)
[2024-12-08] MEDS: KCl 40 mEq in 5% Dex/0.45% Sod 40 MEQ/1,000 ML IV.SOLN 150 MEQ IVCONT (20:12)
[2024-12-08 21:11] LABS: Glucose, Whole Blood 164 mg/dL (60-115)
[2024-12-08 22:01] LABS: Glucose, Whole Blood 179 mg/dL (60-115)
[2024-12-08 23:06] LABS: Glucose, Whole Blood 189 mg/dL (60-115)
[2024-12-09] VITALS (23 sets, daily range): BP systolic 97–136; BP diastolic 57–87; PULSE 82–99; RESP 12–20; TEMP 36–36.9; O2SAT 89–95; BMI 39.4
[2024-12-09] MEDS: HYDROmorphone HCl 1 MG/ML SYRINGE 0.5 MG IVPUSH ×10 (00:01→20:51)
[2024-12-09 00:02] LABS: Glucose, Whole Blood 203 mg/dL (60-115)
[2024-12-09 01:10] LABS: Glucose, Whole Blood 205 mg/dL (60-115)
[2024-12-09 01:20] LABS: Anion Gap 18 (12-20); Blood Urea Nitrogen 15 mg/dL (9-16); Carbon Dioxide 16 mmol/L (22-29); Chloride 108 mmol/L (96-108); Creatinine Clr Calc Pharmacy 102.4; Estimated Glomerular Filt Rate 51; Glucose Random 204 mg/dL (60-115); Phosphorus 3.7 mg/dL (2.7-4.5); Potassium 4.6 mmol/L (3.3-5.1); Sodium 137 mmol/L (135-145)
[2024-12-09] MEDS: Dextrose 5 % and Lactated Ring 1,000 ML 150 ML IVCONT ×4 (01:55→21:32)
[2024-12-09] MEDS: Insulin Regular/NS 100 UNIT/100 ML PLAST..BAG 11 UNIT IVCONT ×2 (01:59→10:44)
[2024-12-09] MEDS: Calcium Gluconate/NaCl,Iso-Osm 2 GM/100 ML PLAST..BAG IV ×2 (01:59→07:51)
[2024-12-09 02:05] LABS: Glucose, Whole Blood 191 mg/dL (60-115)
[2024-12-09 03:12] LABS: Glucose, Whole Blood 189 mg/dL (60-115)
--- NOTE | 2024-12-09 03:45 | PC.NURSE ---
CARE ASSUMED 7PM..ALERT..NEW ZEALANDER SPEAKING..ORIENTED X3 VIA LEGAL SUPPORT ASSISTANT...SPEECH CLEAR..FACE SYMMETRICAL..NO FACIAL OR NECK TWITCHING..JACKSON....CONTUNUES TO C/O 7-10 ABDOMINAL PAIN..PROVIDER AWARE...VOMITED BILIOUS EMESIS AT SHIFT CHANGE ..PRN ZOFRAN GIVEN..DILAUDID GIVEN APPROX Q2 TO Q2.5 HOURS WITH IMPROVED LEVEL OF PAIN...INSULIN DRIP PER MAR TITRATED PER PROVIDER...MULTIPLE ELECTROLYTE REPLACEMENTS PER MAR...D5LR 150 CC/HR HELD WHILE D5 1/2NS 1000ML/KCL 40 MEQ X1 BAG INFUSED 150 CC/HR THEN D5LR RESUMED 150 CC/HR..VOIDED DARK SHANE URINE...CALCIUM GLUCONATE 2GRAMS IV INFUSED THIS AM....FOR AM LABWORK PER CPOE..NSR..NO ECTOPY...S.O. AT BEDSIDE OVERNIGHT..
[2024-12-09 04:19] LABS: Glucose, Whole Blood 179 mg/dL (60-115)
[2024-12-09 05:15] LABS: Glucose, Whole Blood 162 mg/dL (60-115)
[2024-12-09 05:38] LABS: Hematocrit 46.7 % (42.0-52.0); Hemoglobin 16.2 g/dl (14.0-18.0); Mean Corpuscular HGB Conc 34.7 g/dl (31.0-36.0); Mean Corpuscular Hemoglobin 26.5 pg (27.0-33.0); Mean Corpuscular Volume 76.4 fL (80.0-98.0); Mean Platelet Volume 9.9 fL (9.4-12.4); Platelet Count 389 X10*3/uL (160-400); Red Blood Count 6.11 X10*6/uL (4.60-5.80); White Blood Count 7.3 X10*3/uL (4.8-10.8)
[2024-12-09 05:38] LABS: VBG Base Excess -3.8 mmol/L; VBG HCO3 19 mmol/L (22-26); VBG pCO2 32 mmHg; VBG pH 7.39 (7.32-7.43); VBG pO2 39 mmHg
[2024-12-09 05:39] LABS: Venous Blood Gas Refer to POC result
[2024-12-09 05:58] LABS: Alanine Aminotransferase 14 U/L (0-40); Albumin Level 3.1 g/dL (3.5-5.0); Anion Gap 17 (12-20); Aspartate Amino Transferase 59 U/L (5-37); Bilirubin Total 0.8 mg/dL (0.0-1.0); Blood Urea Nitrogen 17 mg/dL (9-16); Calcium 7.5 mg/dL (8.4-10.2); Carbon Dioxide 17 mmol/L (22-29); Chloride 106 mmol/L (96-108); Creatinine Clr Calc Pharmacy 113.6; Estimated Glomerular Filt Rate 57; Glucose Random 182 mg/dL (60-115); Phosphorus 3.7 mg/dL (2.7-4.5); Potassium 4.1 mmol/L (3.3-5.1); Sodium 136 mmol/L (135-145); Total Protein 7.1 g/dL (6.5-8.0); Triglycerides 1381 mg/dL (<150)
[2024-12-09 06:01] LABS: Alkaline Phosphatase 82 U/L (39-117)
[2024-12-09 06:29] LABS: Glucose, Whole Blood 194 mg/dL (60-115)
[2024-12-09 07:06] LABS: Glucose, Whole Blood 182 mg/dL (60-115)
[2024-12-09 07:36] LABS: Band Neutrophils Percent 26 % (3-5); Large Platelet PRESENT; Lymphocytes Absolute Manual 0.7 X10*3/uL (1.2-4.9); Lymphocytes Percent Manual 10 % (20-40); Metamyelocytes Absolute 0.4 X10*3/uL; Metamyelocytes Percent 5 %; Monocytes Absolute Manual 0.4 X10*3/uL (0.1-1.2); Monocytes Percent Manual 5 % (2-11); Neutrophils Absolute Manual 5.8 X10*3/uL (2.0-8.3); Neutrophils Percent Manual 54 % (45-73); Platelet Estimate NORMAL (NORMAL); Platelet Morphology Comment NOTED; RBC Morphology NOTED; Tear Drop Cells 2+ (3-5) /OIF; Toxic Vacuolation PRESENT
[2024-12-09] MEDS: Enoxaparin Sodium 40 MG/0.4 ML SYRINGE SUBCUT (07:51)
[2024-12-09 07:59] LABS: Glucose, Whole Blood 159 mg/dL (60-115)
[2024-12-09 08:56] LABS: Glucose, Whole Blood 180 mg/dL (60-115)
[2024-12-09 09:59] LABS: Glucose, Whole Blood 159 mg/dL (60-115)
[2024-12-09 10:52] LABS: Glucose, Whole Blood 135 mg/dL (60-115)
--- NOTE | 2024-12-09 11:10 | PM.CCPN ---
Subjective Subjective Date of Service: 12/09/24 Interval History: 29-year-old gentleman with underlying diabetes mellitus and asthma admitted on 12/08/2024 with diabetic ketoacidosis and acute pancreatitis with hypertriglyceridemia requiring insulin drip. CT abdomen/pelvis with no evidence of pancreatic necrosis. No events overnight. Critical Care Time (minutes): 0 Physical Exam Vital Signs: Vital Signs: Last Vital Signs Temp 98.5 F 12/09/24 08:00 Pulse 87 12/09/24 10:00 Resp 20 12/09/24 10:00 BP 115/67 12/09/24 10:00 Pulse Ox 90 L 12/09/24 10:00 O2 Del Method Room Air 12/09/24 10:00 O2 Flow Rate 1 12/09/24 06:00 BMI result Body Mass Index 39.4 Const: General: no acute distress, alert and awake Eyes: Sclerae: sclerae normal EOM: EOMs intact bilaterally Neck: Neck: Yes no lymphadenopathy, Yes trachea midline and Yes supple Resp: Effort & Inspection: normal respiratory effort and no respiratory distress Auscultation: clear to auscultation bilaterally Cardio: Rate: regular rate Rhythm: regular rhythm Heart sounds: no gallops, no murmurs and no rubs GI: Palpation (GI): Soft to palpation and Other GI palpation findings present ( Nontender) Auscultation: normal bowel sounds Extrem: General: Yes no pedal edema, No clubbing and No cyanosis Objective Data Labs 12/09/24 05:30 12/09/24 05:30 Labs: Laboratory Results - last 24 hr 12/08/24 12/08/24 12/08/24 09:15 09:54 11:12 WBC RBC Hgb Hct MCV MCH MCHC RDW Plt Count MPV Immature Gran % (Auto) Neut % (Auto) Lymph % (Auto) [place] % (Auto) Eos % (Auto) Baso % (Auto) Lymph # (Auto) [place] # (Auto) Eos # (Auto) Baso # (Auto) Abs Immat Gran (auto) Absolute Neuts (auto) Absolute Nucleated RBC Nucleated RBC % (auto) Neutrophils % (Manual) Band Neutrophils % Lymphocytes % (Manual) Monocytes % (Manual) Metamyelocytes % Abs Neuts (Manual) Lymphocytes # (Manual) Monocytes # (Manual) Metamyelocytes # Toxic Vacuolation Platelet Estimate Large Platelets Plt Morphology Comment RBC Morphology Tear Drop Cells ESR VBG pH VBG pCO2 VBG pO2 VBG HCO3 VBG O2 Saturation VBG Base Excess Sodium 137 Potassium 3.9 Chloride 107 Carbon Dioxide 14 L Anion Gap 20 BUN 9 Creatinine 0.94 Estim Creat Clear Calc 176.5 Estimated GFR > 60 POC Glucose 209 H Random Glucose 236 H Lactic Acid Calcium 7.5 L Phosphorus 2.0 L Magnesium 1.6 Total Bilirubin AST ALT Alkaline Phosphatase C-Reactive Protein Total Protein Albumin 3.1 L Triglycerides 3579 H 12/08/24 12/08/24 12/08/24 12:22 13:03 13:05 WBC RBC Hgb Hct MCV MCH MCHC RDW Plt Count MPV Immature Gran % (Auto) Neut % (Auto) Lymph % (Auto) [place] % (Auto) Eos % (Auto) Baso % (Auto) Lymph # (Auto) [place] # (Auto) Eos # (Auto) Baso # (Auto) Abs Immat Gran (auto) Absolute Neuts (auto) Absolute Nucleated RBC Nucleated RBC % (auto) Neutrophils % (Manual) Band Neutrophils % Lymphocytes % (Manual) Monocytes % (Manual) Metamyelocytes % Abs Neuts (Manual) Lymphocytes # (Manual) Monocytes # (Manual) Metamyelocytes # Toxic Vacuolation Platelet Estimate Large Platelets Plt Morphology Comment RBC Morphology Tear Drop Cells ESR VBG pH VBG pCO2 VBG pO2 VBG HCO3 VBG O2 Saturation VBG Base Excess Sodium 137 Potassium 3.9 Chloride 107 Carbon Dioxide 12 L Anion Gap 22 H BUN 9 Creatinine 1.23 Estim Creat Clear Calc 134.9 Estimated GFR > 60 POC Glucose 172 H 172 H Random Glucose 153 H Lactic Acid Calcium 7.0 L D Phosphorus 2.0 L Magnesium 1.6 Total Bilirubin AST ALT Alkaline Phosphatase C-Reactive Protein Total Protein Albumin Triglycerides 12/08/24 12/08/24 12/08/24 14:14 15:01 15:58 WBC RBC Hgb Hct MCV MCH MCHC RDW Plt Count MPV Immature Gran % (Auto) Neut % (Auto) Lymph % (Auto) [place] % (Auto) Eos % (Auto) Baso % (Auto) Lymph # (Auto) [place] # (Auto) Eos # (Auto) Baso # (Auto) Abs Immat Gran (auto) Absolute Neuts (auto) Absolute Nucleated RBC Nucleated RBC % (auto) Neutrophils % (Manual) Band Neutrophils % Lymphocytes % (Manual) Monocytes % (Manual) Metamyelocytes % Abs Neuts (Manual) Lymphocytes # (Manual) Monocytes # (Manual) Metamyelocytes # Toxic Vacuolation Platelet Estimate Large Platelets Plt Morphology Comment RBC Morphology Tear Drop Cells ESR VBG pH VBG pCO2 VBG pO2 VBG HCO3 VBG O2 Saturation VBG Base Excess Sodium Potassium Chloride Carbon Dioxide Anion Gap BUN Creatinine Estim Creat Clear Calc Estimated GFR POC Glucose 145 H 159 H 134 H Random Glucose Lactic Acid Calcium Phosphorus Magnesium Total Bilirubin AST ALT Alkaline Phosphatase C-Reactive Protein Total Protein Albumin Triglycerides 12/08/24 12/08/24 12/08/24 16:52 16:52 16:52 WBC RBC Hgb Hct MCV MCH MCHC RDW Plt Count MPV Immature Gran % (Auto) Neut % (Auto) Lymph % (Auto) [place] % (Auto) Eos % (Auto) Baso % (Auto) Lymph # (Auto) [place] # (Auto) Eos # (Auto) Baso # (Auto) Abs Immat Gran (auto) Absolute Neuts (auto) Absolute Nucleated RBC Nucleated RBC % (auto) Neutrophils % (Manual) Band Neutrophils % Lymphocytes % (Manual) Monocytes % (Manual) Metamyelocytes % Abs Neuts (Manual) Lymphocytes # (Manual) Monocytes # (Manual) Metamyelocytes # Toxic Vacuolation Platelet Estimate Large Platelets Plt Morphology Comment RBC Morphology Tear Drop Cells ESR VBG pH VBG pCO2 VBG pO2 VBG HCO3 VBG O2 Saturation VBG Base Excess Sodium 136 138 Potassium 3.7 3.8 Chloride 107 Carbon Dioxide Anion Gap BUN Creatinine Estim Creat Clear Calc Estimated GFR POC Glucose Random Glucose Lactic Acid Calcium Phosphorus Magnesium Total Bilirubin AST ALT Alkaline Phosphatase C-Reactive Protein Total Protein Albumin Triglycerides 12/08/24 12/08/24 12/08/24 16:52 16:52 16:52 WBC RBC Hgb Hct MCV MCH MCHC RDW Plt Count MPV Immature Gran % (Auto) Neut % (Auto) Lymph % (Auto) [place] % (Auto) Eos % (Auto) Baso % (Auto) Lymph # (Auto) [place] # (Auto) Eos # (Auto) Baso # (Auto) Abs Immat Gran (auto) Absolute Neuts (auto) Absolute Nucleated RBC Nucleated RBC % (auto) Neutrophils % (Manual) Band Neutrophils % Lymphocytes % (Manual) Monocytes % (Manual) Metamyelocytes % Abs Neuts (Manual) Lymphocytes # (Manual) Monocytes # (Manual) Metamyelocytes # Toxic Vacuolation Platelet Estimate Large Platelets Plt Morphology Comment RBC Morphology Tear Drop Cells ESR VBG pH VBG pCO2 VBG pO2 VBG HCO3 VBG O2 Saturation VBG Base Excess Sodium Potassium Chloride 107 Carbon Dioxide 11 L 12 L Anion Gap 22 H 23 H BUN 9 Creatinine Estim Creat Clear Calc Estimated GFR POC Glucose Random Glucose Lactic Acid Calcium Phosphorus Magnesium Total Bilirubin AST ALT Alkaline Phosphatase C-Reactive Protein Total Protein Albumin Triglycerides 12/08/24 12/08/24 12/08/24 16:52 16:52 16:52 WBC RBC Hgb Hct MCV MCH MCHC RDW Plt Count MPV Immature Gran % (Auto) Neut % (Auto) Lymph % (Auto) [place] % (Auto) Eos % (Auto) Baso % (Auto) Lymph # (Auto) [place] # (Auto) Eos # (Auto) Baso # (Auto) Abs Immat Gran (auto) Absolute Neuts (auto) Absolute Nucleated RBC Nucleated RBC % (auto) Neutrophils % (Manual) Band Neutrophils % Lymphocytes % (Manual) Monocytes % (Manual) Metamyelocytes % Abs Neuts (Manual) Lymphocytes # (Manual) Monocytes # (Manual) Metamyelocytes # Toxic Vacuolation Platelet Estimate Large Platelets Plt Morphology Comment RBC Morphology Tear Drop Cells ESR VBG pH VBG pCO2 VBG pO2 VBG HCO3 VBG O2 Saturation VBG Base Excess Sodium Potassium Chloride Carbon Dioxide Anion Gap BUN 11 Creatinine 1.78 H 1.84 H Estim Creat Clear Calc 93.2 90.2 Estimated GFR 46 POC Glucose Random Glucose Lactic Acid Calcium Phosphorus Magnesium Total Bilirubin AST ALT Alkaline Phosphatase C-Reactive Protein Total Protein Albumin Triglycerides 12/08/24 12/08/24 12/08/24 16:52 16:52 16:52 WBC RBC Hgb Hct MCV MCH MCHC RDW Plt Count MPV Immature Gran % (Auto) Neut % (Auto) Lymph % (Auto) [place] % (Auto) Eos % (Auto) Baso % (Auto) Lymph # (Auto) [place] # (Auto) Eos # (Auto) Baso # (Auto) Abs Immat Gran (auto) Absolute Neuts (auto) Absolute Nucleated RBC Nucleated RBC % (auto) Neutrophils % (Manual) Band Neutrophils % Lymphocytes % (Manual) Monocytes % (Manual) Metamyelocytes % Abs Neuts (Manual) Lymphocytes # (Manual) Monocytes # (Manual) Metamyelocytes # Toxic Vacuolation Platelet Estimate Large Platelets Plt Morphology Comment RBC Morphology Tear Drop Cells ESR VBG pH VBG pCO2 VBG pO2 VBG HCO3 VBG O2 Saturation VBG Base Excess Sodium Potassium Chloride Carbon Dioxide Anion Gap BUN Creatinine Estim Creat Clear Calc Estimated GFR 44 POC Glucose Random Glucose 115 116 H Lactic Acid Calcium 7.6 L D 7.6 L Phosphorus 2.1 L Magnesium 1.5 L Total Bilirubin AST ALT Alkaline Phosphatase C-Reactive Protein Total Protein Albumin Triglycerides 12/08/24 12/08/24 12/08/24 16:52 16:56 18:00 WBC RBC Hgb Hct MCV MCH MCHC RDW Plt Count MPV Immature Gran % (Auto) Neut % (Auto) Lymph % (Auto) [place] % (Auto) Eos % (Auto) Baso % (Auto) Lymph # (Auto) [place] # (Auto) Eos # (Auto) Baso # (Auto) Abs Immat Gran (auto) Absolute Neuts (auto) Absolute Nucleated RBC Nucleated RBC % (auto) Neutrophils % (Manual) Band Neutrophils % Lymphocytes % (Manual) Monocytes % (Manual) Metamyelocytes % Abs Neuts (Manual) Lymphocytes # (Manual) Monocytes # (Manual) Metamyelocytes # Toxic Vacuolation Platelet Estimate Large Platelets Plt Morphology Comment RBC Morphology Tear Drop Cells ESR 19 H VBG pH VBG pCO2 VBG pO2 VBG HCO3 VBG O2 Saturation VBG Base Excess Sodium Potassium Chloride Carbon Dioxide Anion Gap BUN Creatinine Estim Creat Clear Calc Estimated GFR POC Glucose 136 H Random Glucose Lactic Acid 1.4 Calcium Phosphorus Magnesium 1.5 L Total Bilirubin 0.8 AST 47 H ALT 16 Alkaline Phosphatase 85 C-Reactive Protein 14.19 H Total Protein 6.9 Albumin 3.1 L Triglycerides 12/08/24 12/08/24 12/08/24 18:03 19:00 19:56 WBC RBC Hgb Hct MCV MCH MCHC RDW Plt Count MPV Immature Gran % (Auto) Neut % (Auto) Lymph % (Auto) [place] % (Auto) Eos % (Auto) Baso % (Auto) Lymph # (Auto) [place] # (Auto) Eos # (Auto) Baso # (Auto) Abs Immat Gran (auto) Absolute Neuts (auto) Absolute Nucleated RBC Nucleated RBC % (auto) Neutrophils % (Manual) Band Neutrophils % Lymphocytes % (Manual) Monocytes % (Manual) Metamyelocytes % Abs Neuts (Manual) Lymphocytes # (Manual) Monocytes # (Manual) Metamyelocytes # Toxic Vacuolation Platelet Estimate Large Platelets Plt Morphology Comment RBC Morphology Tear Drop Cells ESR VBG pH VBG pCO2 VBG pO2 VBG HCO3 VBG O2 Saturation VBG Base Excess Sodium Potassium Chloride Carbon Dioxide Anion Gap BUN Creatinine Estim Creat Clear Calc Estimated GFR POC Glucose 128 H 151 H 152 H Random Glucose Lactic Acid Calcium Phosphorus Magnesium Total Bilirubin AST ALT Alkaline Phosphatase C-Reactive Protein Total Protein Albumin Triglycerides 12/08/24 12/08/24 12/08/24 21:07 21:57 23:02 WBC RBC Hgb Hct MCV MCH MCHC RDW Plt Count MPV Immature Gran % (Auto) Neut % (Auto) Lymph % (Auto) [place] % (Auto) Eos % (Auto) Baso % (Auto) Lymph # (Auto) [place] # (Auto) Eos # (Auto) Baso # (Auto) Abs Immat Gran (auto) Absolute Neuts (auto) Absolute Nucleated RBC Nucleated RBC % (auto) Neutrophils % (Manual) Band Neutrophils % Lymphocytes % (Manual) Monocytes % (Manual) Metamyelocytes % Abs Neuts (Manual) Lymphocytes # (Manual) Monocytes # (Manual) Metamyelocytes # Toxic Vacuolation Platelet Estimate Large Platelets Plt Morphology Comment RBC Morphology Tear Drop Cells ESR VBG pH VBG pCO2 VBG pO2 VBG HCO3 VBG O2 Saturation VBG Base Excess Sodium Potassium Chloride Carbon Dioxide Anion Gap BUN Creatinine Estim Creat Clear Calc Estimated GFR POC Glucose 164 H 179 H 189 H Random Glucose Lactic Acid Calcium Phosphorus Magnesium Total Bilirubin AST ALT Alkaline Phosphatase C-Reactive Protein Total Protein Albumin Triglycerides 12/08/24 12/09/24 12/09/24 23:57 00:16 01:06 WBC RBC Hgb Hct MCV MCH MCHC RDW Plt Count MPV Immature Gran % (Auto) Neut % (Auto) Lymph % (Auto) [place] % (Auto) Eos % (Auto) Baso % (Auto) Lymph # (Auto) [place] # (Auto) Eos # (Auto) Baso # (Auto) Abs Immat Gran (auto) Absolute Neuts (auto) Absolute Nucleated RBC Nucleated RBC % (auto) Neutrophils % (Manual) Band Neutrophils % Lymphocytes % (Manual) Monocytes % (Manual) Metamyelocytes % Abs Neuts (Manual) Lymphocytes # (Manual) Monocytes # (Manual) Metamyelocytes # Toxic Vacuolation Platelet Estimate Large Platelets Plt Morphology Comment RBC Morphology Tear Drop Cells ESR VBG pH VBG pCO2 VBG pO2 VBG HCO3 VBG O2 Saturation VBG Base Excess Sodium 137 Potassium 4.6 D Chloride 108 Carbon Dioxide 16 L Anion Gap 18 BUN 15 Creatinine 1.62 H Estim Creat Clear Calc 102.4 Estimated GFR 51 POC Glucose 203 H 205 H Random Glucose 204 H Lactic Acid Calcium 7.0 L D Phosphorus 3.7 Magnesium 2.0 Total Bilirubin AST ALT Alkaline Phosphatase C-Reactive Protein Total Protein Albumin 3.0 L Triglycerides 12/09/24 12/09/24 12/09/24 02:01 03:07 04:15 WBC RBC Hgb Hct MCV MCH MCHC RDW Plt Count MPV Immature Gran % (Auto) Neut % (Auto) Lymph % (Auto) [place] % (Auto) Eos % (Auto) Baso % (Auto) Lymph # (Auto) [place] # (Auto) Eos # (Auto) Baso # (Auto) Abs Immat Gran (auto) Absolute Neuts (auto) Absolute Nucleated RBC Nucleated RBC % (auto) Neutrophils % (Manual) Band Neutrophils % Lymphocytes % (Manual) Monocytes % (Manual) Metamyelocytes % Abs Neuts (Manual) Lymphocytes # (Manual) Monocytes # (Manual) Metamyelocytes # Toxic Vacuolation Platelet Estimate Large Platelets Plt Morphology Comment RBC Morphology Tear Drop Cells ESR VBG pH VBG pCO2 VBG pO2 VBG HCO3 VBG O2 Saturation VBG Base Excess Sodium Potassium Chloride Carbon Dioxide Anion Gap BUN Creatinine Estim Creat Clear Calc Estimated GFR POC Glucose 191 H 189 H 179 H Random Glucose Lactic Acid Calcium Phosphorus Magnesium Total Bilirubin AST ALT Alkaline Phosphatase C-Reactive Protein Total Protein Albumin Triglycerides 12/09/24 12/09/24 12/09/24 05:09 05:30 05:34 WBC 7.3 RBC 6.11 H Hgb 16.2 Hct 46.7 MCV 76.4 L MCH 26.5 L MCHC 34.7 RDW 15.0 Plt Count 389 MPV 9.9 Immature Gran % (Auto) Cancelled Neut % (Auto) Cancelled Lymph % (Auto) Cancelled [place] % (Auto) Cancelled Eos % (Auto) Cancelled Baso % (Auto) Cancelled Lymph # (Auto) Cancelled [place] # (Auto) Cancelled Eos # (Auto) Cancelled Baso # (Auto) Cancelled Abs Immat Gran (auto) Cancelled Absolute Neuts (auto) Cancelled Absolute Nucleated RBC 0.000 Nucleated RBC % (auto) 0.0 Neutrophils % (Manual) 54 Band Neutrophils % 26 H Lymphocytes % (Manual) 10 L Monocytes % (Manual) 5 Metamyelocytes % 5 Abs Neuts (Manual) 5.8 Lymphocytes # (Manual) 0.7 L Monocytes # (Manual) 0.4 Metamyelocytes # 0.4 Toxic Vacuolation PRESENT Platelet Estimate NORMAL Large Platelets PRESENT Plt Morphology Comment NOTED RBC Morphology NOTED Tear Drop Cells 2+ (3-5) ESR VBG pH 7.39 VBG pCO2 32 VBG pO2 39 VBG HCO3 19 L VBG O2 Saturation 72.0 VBG Base Excess -3.8 Sodium 136 Potassium 4.1 Chloride 106 Carbon Dioxide 17 L Anion Gap 17 BUN 17 H Creatinine 1.46 H Estim Creat Clear Calc 113.6 Estimated GFR 57 POC Glucose 162 H Random Glucose 182 H Lactic Acid Calcium 7.5 L D Phosphorus 3.7 Magnesium 2.0 Total Bilirubin 0.8 AST 59 H ALT 14 Alkaline Phosphatase 82 C-Reactive Protein Total Protein 7.1 Albumin 3.1 L Triglycerides 1381 H 12/09/24 12/09/24 12/09/24 06:25 07:03 07:56 WBC RBC Hgb Hct MCV MCH MCHC RDW Plt Count MPV Immature Gran % (Auto) Neut % (Auto) Lymph % (Auto) [place] % (Auto) Eos % (Auto) Baso % (Auto) Lymph # (Auto) [place] # (Auto) Eos # (Auto) Baso # (Auto) Abs Immat Gran (auto) Absolute Neuts (auto) Absolute Nucleated RBC Nucleated RBC % (auto) Neutrophils % (Manual) Band Neutrophils % Lymphocytes % (Manual) Monocytes % (Manual) Metamyelocytes % Abs Neuts (Manual) Lymphocytes # (Manual) Monocytes # (Manual) Metamyelocytes # Toxic Vacuolation Platelet Estimate Large Platelets Plt Morphology Comment RBC Morphology Tear Drop Cells ESR VBG pH VBG pCO2 VBG pO2 VBG HCO3 VBG O2 Saturation VBG Base Excess Sodium Potassium Chloride Carbon Dioxide Anion Gap BUN Creatinine Estim Creat Clear Calc Estimated GFR POC Glucose 194 H 182 H 159 H Random Glucose Lactic Acid Calcium Phosphorus Magnesium Total Bilirubin AST ALT Alkaline Phosphatase C-Reactive Protein Total Protein Albumin Triglycerides 12/09/24 12/09/24 12/09/24 08:53 09:55 10:49 WBC RBC Hgb Hct MCV MCH MCHC RDW Plt Count MPV Immature Gran % (Auto) Neut % (Auto) Lymph % (Auto) [place] % (Auto) Eos % (Auto) Baso % (Auto) Lymph # (Auto) [place] # (Auto) Eos # (Auto) Baso # (Auto) Abs Immat Gran (auto) Absolute Neuts (auto) Absolute Nucleated RBC Nucleated RBC % (auto) Neutrophils % (Manual) Band Neutrophils % Lymphocytes % (Manual) Monocytes % (Manual) Metamyelocytes % Abs Neuts (Manual) Lymphocytes # (Manual) Monocytes # (Manual) Metamyelocytes # Toxic Vacuolation Platelet Estimate Large Platelets Plt Morphology Comment RBC Morphology Tear Drop Cells ESR VBG pH VBG pCO2 VBG pO2 VBG HCO3 VBG O2 Saturation VBG Base Excess Sodium Potassium Chloride Carbon Dioxide Anion Gap BUN Creatinine Estim Creat Clear Calc Estimated GFR POC Glucose 180 H 159 H 135 H Random Glucose Lactic Acid Calcium Phosphorus Magnesium Total Bilirubin AST ALT Alkaline Phosphatase C-Reactive Protein Total Protein Albumin Triglycerides Progress Note: A&P Assessment and plan (1) DKA (diabetic ketoacidosis): Status: Acute (2) Acute pancreatitis: Status: Acute (3) Hypertriglyceridemia: Status: Acute Plan Assessment: 29-year-old gentleman with underlying diabetes mellitus and asthma admitted with diabetic ketoacidosis and acute pancreatitis with hypertriglyceridemia. Plan: Neuro: No acute issues. Cardiac: No acute issues. Pulmonary: No acute issues. Renal: Acute renal failure with metabolic acidosis secondary to underlying diabetic ketoacidosis and acute pancreatitis, improving. Non oliguric. Continue to monitor renal indices and urine output. Endo: Diabetic ketoacidosis and acute pancreatitis with hypertriglyceridemia, continue to titrate off insulin drip. GI: No acute issues. ID: No acute issues Heme/Onc: No acute issues. Psych: No acute issues. Miscellaneous: No acute issues. Prophylaxis: Lovenox Diet: NPO Quality Stroke Does the patient have a stroke diagnosis?: No VTE Prior VTE?: No VTE Risk Level:: Medical - moderate - high VTE Device Contraindication: N/A - Device Ordered VTE Drug Contraindication: N/A - Med Ordered
[2024-12-09 12:06] LABS: Glucose, Whole Blood 126 mg/dL (60-115)
[2024-12-09 12:57] LABS: Glucose, Whole Blood 145 mg/dL (60-115)
[2024-12-09 14:07] LABS: Glucose, Whole Blood 162 mg/dL (60-115)
[2024-12-09 14:55] LABS: Glucose, Whole Blood 198 mg/dL (60-115)
--- NOTE | 2024-12-09 15:05 | MHC.CM.PN ---
PT REMAINS IN ICU ON INSULIN GTT/IV FLUIDS. CM WILL CONTINUE TO FOLLOW FOR PLAN.
[2024-12-09 16:03] LABS: Glucose, Whole Blood 198 mg/dL (60-115)
[2024-12-09 17:13] LABS: Glucose, Whole Blood 203 mg/dL (60-115)
[2024-12-09 18:24] LABS: Glucose, Whole Blood 230 mg/dL (60-115)
[2024-12-09 19:02] LABS: Glucose, Whole Blood 217 mg/dL (60-115)
[2024-12-09 19:19] LABS: Anion Gap 16 (12-20); Blood Urea Nitrogen 18 mg/dL (9-16); Calcium 7.2 mg/dL (8.4-10.2); Carbon Dioxide 17 mmol/L (22-29); Chloride 108 mmol/L (96-108); Creatinine Clr Calc Pharmacy 152.5; Estimated Glomerular Filt Rate > 60; Glucose Random 227 mg/dL (60-115); Potassium 4.3 mmol/L (3.3-5.1); Sodium 137 mmol/L (135-145)
[2024-12-09 20:05] LABS: Glucose, Whole Blood 211 mg/dL (60-115)
--- NOTE | 2024-12-09 21:23 | PC.NURSE ---
During the initial encounter, the patient and his partner expressed some concern over noticeable swelling on his R arm. Upon assessment, both D5LR and Insulin infusions were running through two IV catheters on R arm. IV sites were dry and clean with no sign of erythema. The patient denied additional pain when both catheters were flushed, but complained that his entire arm was hurting. Infusions were paused immediately and removed from the catheters. The provider was notified and agreed to pause the infusion until obtaining more IV access. IV catheters were removed and the affected extremity was elevated high with a stack of pillows and warm compress was applied. Both infusions were resumed when new IV access was obtained on the other arm. Swelling and pain seem to have improved as time went by. Education was provided to both the patient and his partner about possible IV infiltration, causes, treatment, and signs they could look out for should/if it occurs again. No further complication was assessed.
[2024-12-09] MEDS: 0.9 % Sodium Chloride Flush 3 ML SYRINGE IVFLUSH (21:32)
[2024-12-09 22:09] LABS: Glucose, Whole Blood 212 mg/dL (60-115)
[2024-12-09] MEDS: Insulin Regular/NS 100 UNIT/100 ML PLAST..BAG 13.5 UNIT IVCONT (23:24)
[2024-12-09 23:26] LABS: Glucose, Whole Blood 195 mg/dL (60-115)
[2024-12-10] VITALS (12 sets, daily range): BP systolic 120–151; BP diastolic 62–80; PULSE 88–112; RESP 18–34; TEMP 36.3–37; O2SAT 90–93
[2024-12-10 00:10] LABS: Glucose, Whole Blood 196 mg/dL (60-115)
[2024-12-10] MEDS: HYDROmorphone HCl 1 MG/ML SYRINGE 0.5 MG IVPUSH ×8 (00:49→20:59)
[2024-12-10 01:02] LABS: Glucose, Whole Blood 173 mg/dL (60-115)
[2024-12-10 02:35] LABS: Glucose, Whole Blood 94 mg/dL (60-115)
[2024-12-10 03:18] LABS: Glucose, Whole Blood 87 mg/dL (60-115)
[2024-12-10 03:57] LABS: Glucose, Whole Blood 96 mg/dL (60-115)
[2024-12-10] MEDS: Dextrose 5 % and Lactated Ring 1,000 ML 150 ML IVCONT (04:00)
[2024-12-10] MEDS: bisacodyL 5 MG TABLET.DR 10 MG PO (05:04)
[2024-12-10] MEDS: ondansetron HCL 4 MG/2 ML VIAL IVPUSH (05:08)
[2024-12-10 05:38] LABS: Glucose, Whole Blood 134 mg/dL (60-115)
[2024-12-10 06:10] LABS: Glucose, Whole Blood 152 mg/dL (60-115)
[2024-12-10 06:14] LABS: VBG Base Excess 0.5 mmol/L; VBG HCO3 22 mmol/L (22-26); VBG pCO2 29 mmHg; VBG pH 7.49 (7.32-7.43); VBG pO2 63 mmHg
[2024-12-10 06:22] LABS: Hematocrit 40.6 % (42.0-52.0); Hemoglobin 13.5 g/dl (14.0-18.0); Mean Corpuscular HGB Conc 33.3 g/dl (31.0-36.0); Mean Corpuscular Hemoglobin 26.2 pg (27.0-33.0); Mean Corpuscular Volume 78.7 fL (80.0-98.0); Mean Platelet Volume 10.2 fL (9.4-12.4); Platelet Count 320 X10*3/uL (160-400); Red Blood Count 5.16 X10*6/uL (4.60-5.80); Red Cell Distribution Width 15.1 % (11.0-16.0); White Blood Count 7.7 X10*3/uL (4.8-10.8)
[2024-12-10 06:48] LABS: Band Neutrophils Percent 27 % (3-5); Basophils Abs Manual 0.1 X10*3/uL (0.0-0.2); Basophils Percent Manual 1 % (0-2); Lymphocytes Absolute Manual 0.5 X10*3/uL (1.2-4.9); Lymphocytes Percent Manual 6 % (20-40); Metamyelocytes Absolute 0.2 X10*3/uL; Metamyelocytes Percent 3 %; Monocytes Absolute Manual 0.4 X10*3/uL (0.1-1.2); Monocytes Percent Manual 5 % (2-11); Neutrophils Absolute Manual 6.5 X10*3/uL (2.0-8.3); Neutrophils Percent Manual 58 % (45-73)
[2024-12-10 06:49] LABS: Burr Cells 1+ (0-2) /OIF; Large Platelet PRESENT; Ovalocytes 1+ (5-14) /OIF; Platelet Estimate NORMAL (NORMAL); Platelet Morphology Comment NOTED; RBC Morphology NOTED; Tear Drop Cells 1+ (0-2) /OIF; Toxic Vacuolation PRESENT
[2024-12-10 06:56] LABS: Alanine Aminotransferase 21 U/L (0-40); Albumin Level 2.7 g/dL (3.5-5.0); Alkaline Phosphatase 73 U/L (39-117); Anion Gap 14 (12-20); Aspartate Amino Transferase 35 U/L (5-37); Bilirubin Total 1.1 mg/dL (0.0-1.0); Blood Urea Nitrogen 14 mg/dL (9-16); Carbon Dioxide 22 mmol/L (22-29); Chloride 106 mmol/L (96-108); Creatinine Clr Calc Pharmacy 199.8; Estimated Glomerular Filt Rate > 60; Glucose Random 150 mg/dL (60-115); Lipase 592 U/L (8-78); Magnesium 1.7 mg/dL (1.6-2.6); Phosphorus 2.7 mg/dL (2.7-4.5); Potassium 3.6 mmol/L (3.3-5.1); Sodium 138 mmol/L (135-145); Total Protein 6.1 g/dL (6.5-8.0); Triglycerides 570 mg/dL (<150)
[2024-12-10 07:15] LABS: Glucose, Whole Blood 147 mg/dL (60-115)
[2024-12-10] MEDS: Insulin Regular/NS 100 UNIT/100 ML PLAST..BAG 6 UNIT IVCONT (07:21)
[2024-12-10] MEDS: Enoxaparin Sodium 40 MG/0.4 ML SYRINGE SUBCUT (07:25)
[2024-12-10 08:16] LABS: Glucose, Whole Blood 163 mg/dL (60-115)
[2024-12-10] MEDS: Insulin Glargine,Hum.rec.anlog 100 UNIT/ML 10 ML VIAL 40 UNIT SUBCUT ×2 (08:50→21:12)
--- NOTE | 2024-12-10 10:32 | P.PNCC_ITS ---
Subjective Subjective Date of Service: 12/10/24 Interval History: 29-year-old gentleman with underlying diabetes mellitus and asthma admitted on 12/08/2024 with diabetic ketoacidosis and acute pancreatitis with hypertriglyceridemia requiring insulin drip. CT abdomen/pelvis with no evidence of pancreatic necrosis. No events overnight. Titrated off insulin drip. Critical Care Time (minutes): 0 Physical Exam 2 Vital Signs: Vital Signs: Last Vital Signs Temp 97.6 F 12/10/24 08:00 Pulse 93 12/10/24 09:00 Resp 25 H 12/10/24 09:00 BP 136/77 12/10/24 09:00 Pulse Ox 92 12/10/24 09:00 O2 Del Method Room Air 12/10/24 09:00 O2 Flow Rate 1 12/09/24 22:00 BMI result Body Mass Index 39.4 Const: General: no acute distress, alert and awake Eyes: Sclerae: sclerae normal EOM: EOMs intact bilaterally Neck: Neck: Yes no lymphadenopathy, Yes trachea midline and Yes supple Resp: Effort & Inspection: normal respiratory effort and no respiratory distress Auscultation: clear to auscultation bilaterally Cardio: Rate: regular rate Rhythm: regular rhythm Heart sounds: no gallops, no murmurs and no rubs GI: Palpation (GI): Soft to palpation and Other GI palpation findings present ( Nontender) Auscultation: normal bowel sounds Extrem: General: Yes no pedal edema, No clubbing and No cyanosis Objective Data Labs 12/10/24 06:08 12/10/24 06:08 Labs: Laboratory Results - last 24 hr 12/09/24 12/09/24 12/09/24 10:49 12:02 12:49 WBC RBC Hgb Hct MCV MCH MCHC RDW Plt Count MPV Immature Gran % (Auto) Neut % (Auto) Lymph % (Auto) [place] % (Auto) Eos % (Auto) Baso % (Auto) Lymph # (Auto) [place] # (Auto) Eos # (Auto) Baso # (Auto) Abs Immat Gran (auto) Absolute Neuts (auto) Absolute Nucleated RBC Nucleated RBC % (auto) Neutrophils % (Manual) Band Neutrophils % Lymphocytes % (Manual) Monocytes % (Manual) Basophils % (Manual) Metamyelocytes % Abs Neuts (Manual) Lymphocytes # (Manual) Monocytes # (Manual) Basophils # (Manual) Metamyelocytes # Toxic Vacuolation Platelet Estimate Large Platelets Plt Morphology Comment RBC Morphology Tear Drop Cells Ovalocytes [place] Cells VBG pH VBG pCO2 VBG pO2 VBG HCO3 VBG O2 Saturation VBG Base Excess Sodium Potassium Chloride Carbon Dioxide Anion Gap BUN Creatinine Estim Creat Clear Calc Estimated GFR POC Glucose 135 H 126 H 145 H Random Glucose Calcium Phosphorus Magnesium Total Bilirubin AST ALT Alkaline Phosphatase Total Protein Albumin Triglycerides Lipase 12/09/24 12/09/24 12/09/24 14:03 14:51 15:59 WBC RBC Hgb Hct MCV MCH MCHC RDW Plt Count MPV Immature Gran % (Auto) Neut % (Auto) Lymph % (Auto) [place] % (Auto) Eos % (Auto) Baso % (Auto) Lymph # (Auto) [place] # (Auto) Eos # (Auto) Baso # (Auto) Abs Immat Gran (auto) Absolute Neuts (auto) Absolute Nucleated RBC Nucleated RBC % (auto) Neutrophils % (Manual) Band Neutrophils % Lymphocytes % (Manual) Monocytes % (Manual) Basophils % (Manual) Metamyelocytes % Abs Neuts (Manual) Lymphocytes # (Manual) Monocytes # (Manual) Basophils # (Manual) Metamyelocytes # Toxic Vacuolation Platelet Estimate Large Platelets Plt Morphology Comment RBC Morphology Tear Drop Cells Ovalocytes Roxy Cells VBG pH VBG pCO2 VBG pO2 VBG HCO3 VBG O2 Saturation VBG Base Excess Sodium Potassium Chloride Carbon Dioxide Anion Gap BUN Creatinine Estim Creat Clear Calc Estimated GFR POC Glucose 162 H 198 H 198 H Random Glucose Calcium Phosphorus Magnesium Total Bilirubin AST ALT Alkaline Phosphatase Total Protein Albumin Triglycerides Lipase 12/09/24 12/09/24 12/09/24 17:08 18:20 18:23 WBC RBC Hgb Hct MCV MCH MCHC RDW Plt Count MPV Immature Gran % (Auto) Neut % (Auto) Lymph % (Auto) [place] % (Auto) Eos % (Auto) Baso % (Auto) Lymph # (Auto) [place] # (Auto) Eos # (Auto) Baso # (Auto) Abs Immat Gran (auto) Absolute Neuts (auto) Absolute Nucleated RBC Nucleated RBC % (auto) Neutrophils % (Manual) Band Neutrophils % Lymphocytes % (Manual) Monocytes % (Manual) Basophils % (Manual) Metamyelocytes % Abs Neuts (Manual) Lymphocytes # (Manual) Monocytes # (Manual) Basophils # (Manual) Metamyelocytes # Toxic Vacuolation Platelet Estimate Large Platelets Plt Morphology Comment RBC Morphology Tear Drop Cells Ovalocytes [place] Cells VBG pH VBG pCO2 VBG pO2 VBG HCO3 VBG O2 Saturation VBG Base Excess Sodium 137 Potassium 4.3 Chloride 108 Carbon Dioxide 17 L Anion Gap 16 BUN 18 H Creatinine 1.10 Estim Creat Clear Calc 152.5 Estimated GFR > 60 POC Glucose 203 H 230 H Random Glucose 227 H Calcium 7.2 L Phosphorus Magnesium Total Bilirubin AST ALT Alkaline Phosphatase Total Protein Albumin Triglycerides Lipase 12/09/24 12/09/24 12/09/24 18:58 20:01 22:05 WBC RBC Hgb Hct MCV MCH MCHC RDW Plt Count MPV Immature Gran % (Auto) Neut % (Auto) Lymph % (Auto) [place] % (Auto) Eos % (Auto) Baso % (Auto) Lymph # (Auto) [place] # (Auto) Eos # (Auto) Baso # (Auto) Abs Immat Gran (auto) Absolute Neuts (auto) Absolute Nucleated RBC Nucleated RBC % (auto) Neutrophils % (Manual) Band Neutrophils % Lymphocytes % (Manual) Monocytes % (Manual) Basophils % (Manual) Metamyelocytes % Abs Neuts (Manual) Lymphocytes # (Manual) Monocytes # (Manual) Basophils # (Manual) Metamyelocytes # Toxic Vacuolation Platelet Estimate Large Platelets Plt Morphology Comment RBC Morphology Tear Drop Cells Ovalocytes Roxy Cells VBG pH VBG pCO2 VBG pO2 VBG HCO3 VBG O2 Saturation VBG Base Excess Sodium Potassium Chloride Carbon Dioxide Anion Gap BUN Creatinine Estim Creat Clear Calc Estimated GFR POC Glucose 217 H 211 H 212 H Random Glucose Calcium Phosphorus Magnesium Total Bilirubin AST ALT Alkaline Phosphatase Total Protein Albumin Triglycerides Lipase 12/09/24 12/09/24 12/10/24 23:21 23:54 00:58 WBC RBC Hgb Hct MCV MCH MCHC RDW Plt Count MPV Immature Gran % (Auto) Neut % (Auto) Lymph % (Auto) [place] % (Auto) Eos % (Auto) Baso % (Auto) Lymph # (Auto) [place] # (Auto) Eos # (Auto) Baso # (Auto) Abs Immat Gran (auto) Absolute Neuts (auto) Absolute Nucleated RBC Nucleated RBC % (auto) Neutrophils % (Manual) Band Neutrophils % Lymphocytes % (Manual) Monocytes % (Manual) Basophils % (Manual) Metamyelocytes % Abs Neuts (Manual) Lymphocytes # (Manual) Monocytes # (Manual) Basophils # (Manual) Metamyelocytes # Toxic Vacuolation Platelet Estimate Large Platelets Plt Morphology Comment RBC Morphology Tear Drop Cells Ovalocytes [place] Cells VBG pH VBG pCO2 VBG pO2 VBG HCO3 VBG O2 Saturation VBG Base Excess Sodium Potassium Chloride Carbon Dioxide Anion Gap BUN Creatinine Estim Creat Clear Calc Estimated GFR POC Glucose 195 H 196 H 173 H Random Glucose Calcium Phosphorus Magnesium Total Bilirubin AST ALT Alkaline Phosphatase Total Protein Albumin Triglycerides Lipase 12/10/24 12/10/24 12/10/24 02:32 03:11 03:52 WBC RBC Hgb Hct MCV MCH MCHC RDW Plt Count MPV Immature Gran % (Auto) Neut % (Auto) Lymph % (Auto) [place] % (Auto) Eos % (Auto) Baso % (Auto) Lymph # (Auto) [place] # (Auto) Eos # (Auto) Baso # (Auto) Abs Immat Gran (auto) Absolute Neuts (auto) Absolute Nucleated RBC Nucleated RBC % (auto) Neutrophils % (Manual) Band Neutrophils % Lymphocytes % (Manual) Monocytes % (Manual) Basophils % (Manual) Metamyelocytes % Abs Neuts (Manual) Lymphocytes # (Manual) Monocytes # (Manual) Basophils # (Manual) Metamyelocytes # Toxic Vacuolation Platelet Estimate Large Platelets Plt Morphology Comment RBC Morphology Tear Drop Cells Ovalocytes Roxy Cells VBG pH VBG pCO2 VBG pO2 VBG HCO3 VBG O2 Saturation VBG Base Excess Sodium Potassium Chloride Carbon Dioxide Anion Gap BUN Creatinine Estim Creat Clear Calc Estimated GFR POC Glucose 94 87 96 Random Glucose Calcium Phosphorus Magnesium Total Bilirubin AST ALT Alkaline Phosphatase Total Protein Albumin Triglycerides Lipase 12/10/24 12/10/24 12/10/24 05:35 06:06 06:08 WBC 7.7 RBC 5.16 Hgb 13.5 L Hct 40.6 L MCV 78.7 L MCH 26.2 L MCHC 33.3 RDW 15.1 Plt Count 320 MPV 10.2 Immature Gran % (Auto) Cancelled Neut % (Auto) Cancelled Lymph % (Auto) Cancelled [place] % (Auto) Cancelled Eos % (Auto) Cancelled Baso % (Auto) Cancelled Lymph # (Auto) Cancelled [place] # (Auto) Cancelled Eos # (Auto) Cancelled Baso # (Auto) Cancelled Abs Immat Gran (auto) Cancelled Absolute Neuts (auto) Cancelled Absolute Nucleated RBC 0.000 Nucleated RBC % (auto) 0.0 Neutrophils % (Manual) 58 Band Neutrophils % 27 H Lymphocytes % (Manual) 6 L Monocytes % (Manual) 5 Basophils % (Manual) 1 Metamyelocytes % 3 Abs Neuts (Manual) 6.5 Lymphocytes # (Manual) 0.5 L Monocytes # (Manual) 0.4 Basophils # (Manual) 0.1 Metamyelocytes # 0.2 Toxic Vacuolation PRESENT Platelet Estimate NORMAL Large Platelets PRESENT Plt Morphology Comment NOTED RBC Morphology NOTED Tear Drop Cells 1+ (0-2) Ovalocytes 1+ (5-14) [place] Cells 1+ (0-2) VBG pH VBG pCO2 VBG pO2 VBG HCO3 VBG O2 Saturation VBG Base Excess Sodium 138 Potassium 3.6 Chloride 106 Carbon Dioxide 22 Anion Gap 14 BUN 14 Creatinine 0.84 Estim Creat Clear Calc 199.8 Estimated GFR > 60 POC Glucose 134 H 152 H Random Glucose 150 H Calcium 7.0 L Phosphorus 2.7 Magnesium 1.7 Total Bilirubin 1.1 H AST 35 ALT 21 Alkaline Phosphatase 73 Total Protein 6.1 L Albumin 2.7 L Triglycerides 570 H Lipase 592 H 12/10/24 12/10/24 12/10/24 06:09 07:09 08:12 WBC RBC Hgb Hct MCV MCH MCHC RDW Plt Count MPV Immature Gran % (Auto) Neut % (Auto) Lymph % (Auto) [place] % (Auto) Eos % (Auto) Baso % (Auto) Lymph # (Auto) [place] # (Auto) Eos # (Auto) Baso # (Auto) Abs Immat Gran (auto) Absolute Neuts (auto) Absolute Nucleated RBC Nucleated RBC % (auto) Neutrophils % (Manual) Band Neutrophils % Lymphocytes % (Manual) Monocytes % (Manual) Basophils % (Manual) Metamyelocytes % Abs Neuts (Manual) Lymphocytes # (Manual) Monocytes # (Manual) Basophils # (Manual) Metamyelocytes # Toxic Vacuolation Platelet Estimate Large Platelets Plt Morphology Comment RBC Morphology Tear Drop Cells Ovalocytes Roxy Cells VBG pH 7.49 H VBG pCO2 29 VBG pO2 63 VBG HCO3 22 VBG O2 Saturation 94.0 VBG Base Excess 0.5 Sodium Potassium Chloride Carbon Dioxide Anion Gap BUN Creatinine Estim Creat Clear Calc Estimated GFR POC Glucose 147 H 163 H Random Glucose Calcium Phosphorus Magnesium Total Bilirubin AST ALT Alkaline Phosphatase Total Protein Albumin Triglycerides Lipase Microbiology Microbiology Results: Microbiology 12/09/24 00:16 Blood - Venous Blood Culture - Preliminary No growth after 24 hours. 12/08/24 18:00 Blood - Venous Blood Culture - Preliminary No growth after 24 hours. Progress Note: A&P Assessment and plan (1) Hypertriglyceridemia: Status: Acute (2) DKA (diabetic ketoacidosis): Status: Acute (3) Acute pancreatitis: Status: Acute Plan Assessment: 29-year-old gentleman with underlying diabetes mellitus and asthma admitted with diabetic ketoacidosis and acute pancreatitis with hypertriglyceridemia. Plan: Neuro: No acute issues. Cardiac: No acute issues. Pulmonary: No acute issues. Renal: Acute renal failure with metabolic acidosis secondary to underlying diabetic ketoacidosis and acute pancreatitis, resolved. Non oliguric. Continue to monitor renal indices and urine output. Endo: Diabetic ketoacidosis and acute pancreatitis with hypertriglyceridemia, titrated off insulin drip to subcutaneous insulin. Started on gemfibrozil. GI: No acute issues. ID: No acute issues Heme/Onc: No acute issues. Psych: No acute issues. Miscellaneous: No acute issues. Prophylaxis: Lovenox Diet: Diabetic Quality Stroke Does the patient have a stroke diagnosis?: No VTE Prior VTE?: No VTE Risk Level:: Medical - moderate - high VTE Device Contraindication: N/A - Device Ordered VTE Drug Contraindication: N/A - Med Ordered
[2024-12-10 11:33] LABS: Glucose, Whole Blood 206 mg/dL (60-115)
[2024-12-10] MEDS: Insulin Lispro 100 UNIT/ML 3 ML VIAL SUBCUT ×3 (11:33→21:11)
[2024-12-10 11:34] LABS: Venous Blood Gas Refer to POC result
[2024-12-10] MEDS: gemfibroziL 600 MG TABLET PO ×2 (11:34→15:49)
--- NOTE | 2024-12-10 15:05 | PM.EVENT ---
Event Note Date of Service: 12/10/24 Event Note: Patient is downgraded from ICU today: Seen and examined. Patient admitted to ICU for diabetic ketoacidosis with a hypertriglyceridemia requiring insulin drip. Please see ICU note for further info. Physical exam/assessment and plan as per ICU In addition patient had facial numbness and benny-oral numbness on 12/08/24 ct head :Mild interval increase in size of the lytic lesion in the left temporal/occipital skull. assesmement and plan as per icu note neuro eval for abnormal ct head. Time Spent With Patient Time: Total time managing care of this patient today ____ minutes.
[2024-12-10 15:42] LABS: Anion Gap 13 (12-20); Blood Urea Nitrogen 12 mg/dL (9-16); Calcium 7.2 mg/dL (8.4-10.2); Carbon Dioxide 22 mmol/L (22-29); Chloride 103 mmol/L (96-108); Creatinine Clr Calc Pharmacy 226.8; Estimated Glomerular Filt Rate > 60; Glucose Random 216 mg/dL (60-115); Potassium 3.9 mmol/L (3.3-5.1); Sodium 134 mmol/L (135-145)
[2024-12-10] MEDS: polyethylene glycoL 3350 17 GM POWD.PACK PO (15:49)
[2024-12-10] MEDS: 0.9 % Sodium Chloride Flush 3 ML SYRINGE IVFLUSH (15:49)
[2024-12-10] MEDS: Omeprazole 20 MG CAPSULE.DR PO (15:49)
[2024-12-10 16:48] LABS: Glucose, Whole Blood 228 mg/dL (60-115)
[2024-12-10 20:02] LABS: Glucose, Whole Blood 238 mg/dL (60-115)
[2024-12-11] MEDS: HYDROmorphone HCl 1 MG/ML SYRINGE 0.5 MG IVPUSH ×10 (01:09→22:23)
[2024-12-11 03:33] VITALS: BP 158/91; PULSE 92; RESP 18; TEMP 36.6; O2SAT 96
[2024-12-11] MEDS: Omeprazole 20 MG CAPSULE.DR PO (06:02)
[2024-12-11] MEDS: Lactated Ringers 1,000 ML 80 ML IVCONT ×2 (06:03→19:54)
[2024-12-11 06:35] LABS: Hematocrit 36.6 % (42.0-52.0); Hemoglobin 12.3 g/dl (14.0-18.0); Mean Corpuscular HGB Conc 33.6 g/dl (31.0-36.0); Mean Corpuscular Hemoglobin 26.3 pg (27.0-33.0); Mean Corpuscular Volume 78.2 fL (80.0-98.0); Mean Platelet Volume 9.7 fL (9.4-12.4); Platelet Count 325 X10*3/uL (160-400); Red Blood Count 4.68 X10*6/uL (4.60-5.80); Red Cell Distribution Width 14.9 % (11.0-16.0)
[2024-12-11 06:38] LABS: Albumin Level 2.7 g/dL (3.5-5.0); Anion Gap 11 (12-20); Blood Urea Nitrogen 10 mg/dL (9-16); Calcium 7.2 mg/dL (8.4-10.2); Carbon Dioxide 25 mmol/L (22-29); Chloride 101 mmol/L (96-108); Creatinine Clr Calc Pharmacy 197.4; Estimated Glomerular Filt Rate > 60; Glucose Random 205 mg/dL (60-115); Magnesium 1.5 mg/dL (1.6-2.6); Phosphorus 2.3 mg/dL (2.7-4.5); Potassium 3.8 mmol/L (3.3-5.1); Sodium 133 mmol/L (135-145)
[2024-12-11 07:14] LABS: Glucose, Whole Blood 191 mg/dL (60-115)
[2024-12-11 07:37] VITALS: BP 133/60; PULSE 92; RESP 18; TEMP 36.8; O2SAT 94
[2024-12-11 07:54] LABS: Iron 14 mcg/dL (45-160); Percent Iron Saturation 10 % (15-50); Total Iron Binding Capacity 139 mcg/dL (228-428); Unsaturated Iron Binding 125 ug/dL
[2024-12-11] MEDS: Insulin Glargine,Hum.rec.anlog 100 UNIT/ML 10 ML VIAL 40 UNIT SUBCUT ×2 (08:11→22:28)
[2024-12-11] MEDS: Insulin Lispro 100 UNIT/ML 3 ML VIAL SUBCUT ×4 (08:11→22:28)
[2024-12-11] MEDS: Magnesium Sulfate/H2O 2 GM/50 ML PIGGYBACK IV (08:11)
[2024-12-11] MEDS: gemfibroziL 600 MG TABLET PO ×2 (08:11→16:46)
[2024-12-11] MEDS: Enoxaparin Sodium 40 MG/0.4 ML SYRINGE SUBCUT (08:14)
[2024-12-11 08:23] LABS: Atypical Lymph Absolute Manual 0.1 x10*3/uL; Atypical Lymphs Percent Manual 1 % (0-6); Band Neutrophils Percent 8 % (3-5); Eosinophils Absolute Manual 0.1 X10*3/uL (0.0-0.4); Eosinophils Percent Manual 1 % (0-4); Lymphocytes Absolute Manual 0.9 X10*3/uL (1.2-4.9); Lymphocytes Percent Manual 10 % (20-40); Monocytes Absolute Manual 1.2 X10*3/uL (0.1-1.2); Monocytes Percent Manual 13 % (2-11); Myelocytes Absolute 0.1 X10*/uL; Myelocytes Percent 1 %; Neutrophils Absolute Manual 6.7 X10*3/uL (2.0-8.3); Neutrophils Percent Manual 66 % (45-73)
[2024-12-11 08:24] LABS: Burr Cells 1+ (0-2) /OIF; Dohle Bodies PRESENT; Large Platelet PRESENT; Platelet Estimate NORMAL (NORMAL); Platelet Morphology Comment NOTED; RBC Morphology NOTED; Smudge Cells PRESENT
[2024-12-11 08:25] LABS: Toxic Vacuolation PRESENT
[2024-12-11 08:45] LABS: Ferritin 1717 ng/mL (20-250)
--- NOTE | 2024-12-11 10:19 | HO.PM.IMPN ---
Subjective Subjective Date of Service: 12/11/24 Interval History: still with abd pain Physical Exam Vital Signs: Vital Signs: Last Vital Signs Temp 98.2 F 12/11/24 07:37 Pulse 92 12/11/24 07:37 Resp 18 12/11/24 07:37 BP 133/60 12/11/24 07:37 Pulse Ox 94 12/11/24 07:37 O2 Del Method Room Air 12/11/24 07:37 O2 Flow Rate 1 12/09/24 22:00 BMI result Body Mass Index 39.4 General: AO X 3, no acute distress Resp: CTA bilateral, no accessory muscles used CVS: S1,S2,RRR GI: soft, mildly tender, non distended Neuro: motor grossly intact, alert Psych: appropriate affect, appropriate insight some white striae on shoulders and anticubital fossa Objective Data Active Medications Dextrose (Dextrose 50 % 25 Gm/50 Ml Syringe) 25 gm IVPUSH Q30M PRN PRN Reason: BG < 70 Docusate Sodium (Docusate Sodium 100 Mg Capsule) 100 mg PO BID PRN PRN Reason: Constipation Enoxaparin Sodium (Enoxaparin Sodium 40 Mg/0.4 Ml Syringe) 40 mg SUBCUT Q24H [facility] Last Admin: 12/11/24 08:14 Dose: 40 mg Documented By: JENSEN Gemfibrozil (Gemfibrozil 600 Mg Tablet) 600 mg PO BIDAC [facility] Last Admin: 12/11/24 08:11 Dose: 600 mg Documented By: JENSEN Hydromorphone HCl (Hydromorphone Hcl 1 Mg/Ml Syringe) 0.5 mg IVPUSH Q2H PRN; Protocol PRN Reason: Pain, Severe (Pain Scale 7-10) Last Admin: 12/11/24 08:11 Dose: 0.5 mg Documented By: JENSEN Lactated Ringer's (Lr) 1,000 mls @ 80 mls/hr IVCONT .[id number] [facility] Last Admin: 12/11/24 06:03 Dose: 80 mls/hr Documented By: LATA Insulin Glargine (Insulin Glargine,Hum.Rec.Anlog 100 Unit/Ml 10 Ml Vial) 40 unit SUBCUT BID [facility] Last Admin: 12/11/24 08:11 Dose: 40 unit Documented By: JENSEN Insulin Human Lispro (Insulin Lispro 100 Unit/Ml 3 Ml Vial) 0 unit SUBCUT QIDACHS [facility]; Protocol Last Admin: 12/11/24 08:11 Dose: 4 unit Documented By: JENSEN Omeprazole (Omeprazole 20 Mg Capsule.Dr) 20 mg PO DAILY@0630 [facility] Last Admin: 12/11/24 06:02 Dose: 20 mg Documented By: LATA Ondansetron HCl (Ondansetron Hcl 4 Mg/2 Ml Vial) 4 mg IVPUSH Q6H PRN PRN Reason: Nausea and Vomiting Last Admin: 12/10/24 05:08 Dose: 4 mg Documented By: NEELA Polyethylene Glycol (Polyethylene Glycol 3350 17 Gm Powd.Pack) 17 gm PO DAILY PRN PRN Reason: Constipation Last Admin: 12/10/24 15:49 Dose: 17 gm Documented By: JENSEN Sodium Chloride (0.9 % Sodium Chloride Flush 3 Ml Syringe) 3 ml IVFLUSH [facility] Last Admin: 12/11/24 08:12 Dose: Not Given Documented By: JENSEN Non-Admin Reason: IV Running Labs 12/11/24 05:56 12/11/24 05:56 Labs: Laboratory Results - last 24 hr 12/10/24 12/10/24 12/10/24 11:18 15:19 16:41 MCV MCH MCHC RDW Plt Count MPV Immature Gran % (Auto) Neut % (Auto) Lymph % (Auto) [place] % (Auto) Eos % (Auto) Baso % (Auto) Lymph # (Auto) [place] # (Auto) Eos # (Auto) Baso # (Auto) Abs Immat Gran (auto) Absolute Neuts (auto) Absolute Nucleated RBC Nucleated RBC % (auto) Neutrophils % (Manual) Band Neutrophils % Lymphocytes % (Manual) Atypical Lymphs % (Man) Monocytes % (Manual) Eosinophils % (Manual) Myelocytes % Abs Neuts (Manual) Lymphocytes # (Manual) Atyp Lymphs # (Manual) Monocytes # (Manual) Eosinophils # (Manual) Myelocytes # [place]udge Cells Toxic Vacuolation Dohle Bodies Platelet Estimate Large Platelets Plt Morphology Comment RBC Morphology [place] Cells Anion Gap 13 Estim Creat Clear Calc 226.8 Estimated GFR > 60 POC Glucose 206 H 228 H Random Glucose 216 H Calcium 7.2 L Phosphorus Magnesium Iron TIBC % Saturation Unsat Iron Binding Ferritin Albumin 12/10/24 12/11/24 12/11/24 19:52 05:56 07:02 MCV 78.2 L MCH 26.3 L MCHC 33.6 RDW 14.9 Plt Count 325 MPV 9.7 Immature Gran % (Auto) Cancelled Neut % (Auto) Cancelled Lymph % (Auto) Cancelled [place] % (Auto) Cancelled Eos % (Auto) Cancelled Baso % (Auto) Cancelled Lymph # (Auto) Cancelled [place] # (Auto) Cancelled Eos # (Auto) Cancelled Baso # (Auto) Cancelled Abs Immat Gran (auto) Cancelled Absolute Neuts (auto) Cancelled Absolute Nucleated RBC 0.000 Nucleated RBC % (auto) 0.0 Neutrophils % (Manual) 66 Band Neutrophils % 8 H Lymphocytes % (Manual) 10 L Atypical Lymphs % (Man) 1 Monocytes % (Manual) 13 H Eosinophils % (Manual) 1 Myelocytes % 1 Abs Neuts (Manual) 6.7 Lymphocytes # (Manual) 0.9 L Atyp Lymphs # (Manual) 0.1 Monocytes # (Manual) 1.2 Eosinophils # (Manual) 0.1 Myelocytes # 0.1 [place] Cells PRESENT Toxic Vacuolation PRESENT Dohle Bodies PRESENT Platelet Estimate NORMAL Large Platelets PRESENT Plt Morphology Comment NOTED RBC Morphology NOTED [place] Cells 1+ (0-2) Anion Gap 11 L Estim Creat Clear Calc 197.4 Estimated GFR > 60 POC Glucose 238 H 191 H Random Glucose 205 H Calcium 7.2 L Phosphorus 2.3 L Magnesium 1.5 L Iron 14 L TIBC 139 L % Saturation 10 L Unsat Iron Binding 125 Ferritin 1717 H Albumin 2.7 L Microbiology Microbiology Results: Microbiology 12/09/24 00:16 Blood Culture - Preliminary Blood - Venous No growth after 48 hours. 12/08/24 18:00 Blood Culture - Preliminary Blood - Venous No growth after 48 hours. 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 of note had stroke alert 12/08/24 for facial parasthesias Acute pancreatitis Due to hypertriglyceridemia On gemfibrozil, triglycerides have decreased from 5000 to 570 Will add statin Continue pain control not fully tolerating solids DKA Resolved, continue basal bolus insulin Will need insulin on discharge Episode of paresthesias with twitching Doubt CVA, neuro eval Metabolic syndrome Weight loss recommended Glomus jugulare tumor Continue follow up outpatient with Dr. Iglesias DVT prophylaxis with Lovenox Full Code reason for continued hospitalization: Not tolerating p.o. Quality Stroke Does the patient have a stroke diagnosis?: No VTE Prior VTE?: No VTE Risk Level:: Medical - moderate - high VTE Device Contraindication: N/A - Device Ordered VTE Drug Contraindication: N/A - Med Ordered
--- NOTE | 2024-12-11 11:05 | P.CNNE_ITS ---
History of Present Illness Data of Consult Service Date: 12/11/24 Primary Care Provider: Unknown Physician HPI Reason for consult: Skull abnormality The patient is a 29-year-old male with a past medical history of diabetes mellitus, asthma and obesity who presented to emergency department with bilateral flank pain and abdominal pain for 2 days.? He had pancreatitis and is now out of the ICU. I was asked to see him regarding slight increase in the left occipital skull lesion which is an incidental finding. He also hasd some transient facial numbness. [facility] Past Medical History Medical History (Updated 12/11/24 @ 15:23 by Idalmis Coffey MD) Diabetes mellitus Asthma No known health problems Family History Family History Maternal Grandmother Diabetes Social History Social History Household Members: Significant Other Housing: Apartment Do you presently have visiting nurse or other home services: No Alcohol intake: never Comment: Spouse at bedside Patient Tobacco Use Status: Never used Tobacco Smoked in Last 30 Days: No Use of substances other than those prescribed or required for medical reasons: No Currently Displaying Signs/Symptoms of Drug Intoxication Withdrawal: No Have you been hit, kicked, punched, or otherwise hurt by someone within the past year? If so, by whom?: No Do you feel safe in your current relationship?: Yes Is there a partner from a previous relationship who is making you feel unsafe now?: No Are you made to feel afraid or neglected: No Advance Directives: No Advance Directives Information Provided: No Advance Directives on File: No Do you have a plan to hurt others: No Plan Recently lost weight without trying: No Eating poorly because of decreased appetite: No Nutrition Risks: No Nutritional Risk service: No Current occupational status: employed Meds Allergies Allergy/AdvReac Type Severity Reaction Status Date / Time shellfish derived Allergy Intermediate RASH Verified 12/07/24 20:11 [SHELLFISH DERIVED] Active Medications: Current Medications Atorvastatin Calcium (Atorvastatin Calcium 80 Mg Tablet) 80 mg PO BEDTIME [place] Dextrose (Dextrose 50 % 25 Gm/50 Ml Syringe) 25 gm IVPUSH Q30M PRN PRN Reason: BG < 70 Docusate Sodium (Docusate Sodium 100 Mg Capsule) 100 mg PO BID PRN PRN Reason: Constipation Enoxaparin Sodium (Enoxaparin Sodium 40 Mg/0.4 Ml Syringe) 40 mg SUBCUT Q24H [facility] Last Admin: 12/11/24 08:14 Dose: 40 mg Gemfibrozil (Gemfibrozil 600 Mg Tablet) 600 mg PO BIDAC [facility] Last Admin: 12/11/24 08:11 Dose: 600 mg Hydromorphone HCl (Hydromorphone Hcl 1 Mg/Ml Syringe) 0.5 mg IVPUSH Q2H PRN; Protocol PRN Reason: Pain, Severe (Pain Scale 7-10) Last Admin: 12/11/24 08:11 Dose: 0.5 mg Lactated Ringer's (Lr) 1,000 mls @ 80 mls/hr IVCONT .[id number] [facility] Last Admin: 12/11/24 06:03 Dose: 80 mls/hr Insulin Glargine (Insulin Glargine,Hum.Rec.Anlog 100 Unit/Ml 10 Ml Vial) 40 unit SUBCUT BID [facility] Last Admin: 12/11/24 08:11 Dose: 40 unit Insulin Human Lispro (Insulin Lispro 100 Unit/Ml 3 Ml Vial) 0 unit SUBCUT QIDACHS [facility]; Protocol Last Admin: 12/11/24 08:11 Dose: 4 unit Omeprazole (Omeprazole 20 Mg Capsule.Dr) 20 mg PO DAILY@0630 [facility] Last Admin: 12/11/24 06:02 Dose: 20 mg Ondansetron HCl (Ondansetron Hcl 4 Mg/2 Ml Vial) 4 mg IVPUSH Q6H PRN PRN Reason: Nausea and Vomiting Last Admin: 12/10/24 05:08 Dose: 4 mg Polyethylene Glycol (Polyethylene Glycol 3350 17 Gm Powd.Pack) 17 gm PO DAILY PRN PRN Reason: Constipation Last Admin: 12/10/24 15:49 Dose: 17 gm Sodium Chloride (0.9 % Sodium Chloride Flush 3 Ml Syringe) [facility] Last Admin: 12/11/24 08:12 Dose: Not Given Home Medications ?Medication ?Instructions ?Recorded ?Confirmed ?Last Taken ?Type metformin 750 mg tablet,extended 750 mg PO BID 12/08/24 12/08/24 12/06/24 History release 24 hr Physical Exam 2 Vital Signs: Vital Signs: Last Vital Signs Temp 98.2 F 12/11/24 07:37 Pulse 92 12/11/24 07:37 Resp 18 12/11/24 07:37 BP 133/60 12/11/24 07:37 Pulse Ox 94 12/11/24 07:37 O2 Del Method Room Air 12/11/24 07:37 O2 Flow Rate 1 12/09/24 22:00 BMI result Body Mass Index 39.4 Neuro: Other: Non focal exam Results Labs 12/11/24 05:56 12/11/24 05:56 Labs: Short CBC 12/11/24 Range/Units 05:56 WBC 9.0 (4.8-10.8) X10*3/uL Hgb 12.3 L (14.0-18.0) g/dl Hct 36.6 L (42.0-52.0) % Plt Count 325 (160-400) X10*3/uL BMP 12/10/24 12/11/24 15:19 05:56 Sodium 134 L 133 L Potassium 3.9 3.8 Chloride 103 101 Carbon Dioxide 22 25 BUN 12 10 Creatinine 0.74 0.85 Calcium 7.2 L 7.2 L Liver Function 12/11/24 Range/Units 05:56 Albumin 2.7 L (3.5-5.0) g/dL Microbiology Microbiology Results: Microbiology 12/09/24 00:16 Blood - Venous Blood Culture - Preliminary No growth after 48 hours. 12/08/24 18:00 Blood - Venous Blood Culture - Preliminary No growth after 48 hours. Assessment and Plan (1) Skull lesion: Status: Acute Incidental finding. Recom. Out patient biopsy by head and neck or neurosurgeon Procedures Date of Service Date of Service: 12/11/24
[2024-12-11 11:09] LABS: Thyroid Stimulating Hormone 1.67 uIU/mL (0.32-4.0)
[2024-12-11 11:45] LABS: Glucose, Whole Blood 224 mg/dL (60-115)
[2024-12-11] MEDS: Sodium,Potassium Phosphates POWD.PACK 2 PACKET PO (12:00)
--- NOTE | 2024-12-11 13:21 | MHC.CM.PN ---
EMR REVIEWED AND PER MD ROUNDS, PT IS NOT MEDICALLY CLEARED FOR DC HOME.NEURO EVAL PENDING. POSSIBLE DC 12/12. CM WILL CONTINUE TO FOLLOW FOR ANY CHANGE TO DC PLAN/NEEDS
[2024-12-11 15:46] VITALS: BP 133/62; PULSE 92; RESP 16; TEMP 36.9; O2SAT 93
--- NOTE | 2024-12-11 16:00 | P.PNNE_ITS ---
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 There was no need for a neurological consult here. They will f/u with the treating doctor Critical Care Time (minutes): 0 Comment: This is an addendum to my consult Physical Exam 2 Vital Signs: Vital Signs: Last Vital Signs Temp 98.4 F 12/11/24 15:46 Pulse 92 12/11/24 15:46 Resp 16 12/11/24 15:46 BP 133/62 12/11/24 15:46 Pulse Ox 93 12/11/24 15:46 O2 Del Method Room Air 12/11/24 15:46 O2 Flow Rate 1 12/09/24 22:00 BMI result Body Mass Index 39.4 Objective Data Labs 12/11/24 05:56 12/11/24 05:56 Labs: Laboratory Results - last 24 hr 12/10/24 12/10/24 12/11/24 16:41 19:52 05:56 WBC 9.0 RBC 4.68 Hgb 12.3 L Hct 36.6 L MCV 78.2 L MCH 26.3 L MCHC 33.6 RDW 14.9 Plt Count 325 MPV 9.7 Immature Gran % (Auto) Cancelled Neut % (Auto) Cancelled Lymph % (Auto) Cancelled [place] % (Auto) Cancelled Eos % (Auto) Cancelled Baso % (Auto) Cancelled Lymph # (Auto) Cancelled [place] # (Auto) Cancelled Eos # (Auto) Cancelled Baso # (Auto) Cancelled Abs Immat Gran (auto) Cancelled Absolute Neuts (auto) Cancelled Absolute Nucleated RBC 0.000 Nucleated RBC % (auto) 0.0 Neutrophils % (Manual) 66 Band Neutrophils % 8 H Lymphocytes % (Manual) 10 L Atypical Lymphs % (Man) 1 Monocytes % (Manual) 13 H Eosinophils % (Manual) 1 Myelocytes % 1 Abs Neuts (Manual) 6.7 Lymphocytes # (Manual) 0.9 L Atyp Lymphs # (Manual) 0.1 Monocytes # (Manual) 1.2 Eosinophils # (Manual) 0.1 Myelocytes # 0.1 Smudge Cells PRESENT Toxic Vacuolation PRESENT Dohle Bodies PRESENT Platelet Estimate NORMAL Large Platelets PRESENT Plt Morphology Comment NOTED RBC Morphology NOTED Roxy Cells 1+ (0-2) Sodium 133 L Potassium 3.8 Chloride 101 Carbon Dioxide 25 Anion Gap 11 L BUN 10 Creatinine 0.85 Estim Creat Clear Calc 197.4 Estimated GFR > 60 POC Glucose 228 H 238 H Random Glucose 205 H Calcium 7.2 L Phosphorus 2.3 L Magnesium 1.5 L Iron 14 L TIBC 139 L % Saturation 10 L Unsat Iron Binding 125 Ferritin 1717 H Albumin 2.7 L TSH 1.67 12/11/24 12/11/24 07:02 11:40 WBC RBC Hgb Hct MCV MCH MCHC RDW Plt Count MPV Immature Gran % (Auto) Neut % (Auto) Lymph % (Auto) [place] % (Auto) Eos % (Auto) Baso % (Auto) Lymph # (Auto) [place] # (Auto) Eos # (Auto) Baso # (Auto) Abs Immat Gran (auto) Absolute Neuts (auto) Absolute Nucleated RBC Nucleated RBC % (auto) Neutrophils % (Manual) Band Neutrophils % Lymphocytes % (Manual) Atypical Lymphs % (Man) Monocytes % (Manual) Eosinophils % (Manual) Myelocytes % Abs Neuts (Manual) Lymphocytes # (Manual) Atyp Lymphs # (Manual) Monocytes # (Manual) Eosinophils # (Manual) Myelocytes # Smudge Cells Toxic Vacuolation Dohle Bodies Platelet Estimate Large Platelets Plt Morphology Comment RBC Morphology Roxy Cells Sodium Potassium Chloride Carbon Dioxide Anion Gap BUN Creatinine Estim Creat Clear Calc Estimated GFR POC Glucose 191 H 224 H Random Glucose Calcium Phosphorus Magnesium Iron TIBC % Saturation Unsat Iron Binding Ferritin Albumin TSH Microbiology Microbiology Results: Microbiology 12/09/24 00:16 Blood - Venous Blood Culture - Preliminary No growth after 48 hours. 12/08/24 18:00 Blood - Venous Blood Culture - Preliminary No growth after 48 hours. Progress Note: A&P Time Spent With Patient Time: Total time managing care of this patient today ____ minutes. Procedures Date of Service Date of Service: 12/11/24 Quality Stroke Does the patient have a stroke diagnosis?: No VTE Prior VTE?: No VTE Risk Level:: Medical - moderate - high VTE Device Contraindication: N/A - Device Ordered VTE Drug Contraindication: N/A - Med Ordered
[2024-12-11 16:29] LABS: Glucose, Whole Blood 217 mg/dL (60-115)
[2024-12-11] MEDS: 0.9 % Sodium Chloride Flush 3 ML SYRINGE IVFLUSH (16:48)
[2024-12-11] MEDS: polyethylene glycoL 3350 17 GM POWD.PACK PO (19:48)
[2024-12-11] MEDS: Atorvastatin Calcium 80 MG TABLET PO (19:48)
[2024-12-11 20:00] VITALS: BP 134/68; PULSE 95; RESP 16; TEMP 36.4; O2SAT 96
[2024-12-11 20:16] LABS: Glucose, Whole Blood 186 mg/dL (60-115)
[2024-12-12] VITALS (8 sets, daily range): BP systolic 122–166; BP diastolic 65–87; PULSE 94–105; RESP 18–20; TEMP 36–36.4; O2SAT 91–94
[2024-12-12] MEDS: HYDROmorphone HCl 1 MG/ML SYRINGE 0.5 MG IVPUSH ×7 (00:39→14:47)
[2024-12-12] MEDS: Docusate Sodium 100 MG CAPSULE PO (03:33)
[2024-12-12] MEDS: Omeprazole 20 MG CAPSULE.DR PO (05:45)
[2024-12-12 06:21] LABS: Hematocrit 35.4 % (42.0-52.0); Hemoglobin 11.8 g/dl (14.0-18.0); Mean Corpuscular HGB Conc 33.3 g/dl (31.0-36.0); Mean Corpuscular Hemoglobin 26.1 pg (27.0-33.0); Mean Corpuscular Volume 78.3 fL (80.0-98.0); Mean Platelet Volume 9.3 fL (9.4-12.4); Platelet Count 340 X10*3/uL (160-400); Red Blood Count 4.52 X10*6/uL (4.60-5.80); White Blood Count 9.6 X10*3/uL (4.8-10.8)
[2024-12-12 06:43] LABS: Alanine Aminotransferase 11 U/L (0-40); Albumin Level 2.7 g/dL (3.5-5.0); Alkaline Phosphatase 125 U/L (39-117); Anion Gap 12 (12-20); Aspartate Amino Transferase 32 U/L (5-37); Bilirubin Direct 0.7 mg/dL (0.0-0.5); Bilirubin Total 1.7 mg/dL (0.0-1.0); Blood Urea Nitrogen 9 mg/dL (9-16); Calcium 7.9 mg/dL (8.4-10.2); Carbon Dioxide 27 mmol/L (22-29); Chloride 97 mmol/L (96-108); Cholesterol 187 mg/dL (<200); Creatinine Clr Calc Pharmacy 199.8; Estimated Glomerular Filt Rate > 60; Glucose Random 195 mg/dL (60-115); HDL Cholesterol 21 mg/dL (>40); LDL Cholesterol Calculated 110 mg/dL (<100); Sodium 132 mmol/L (135-145); Total Protein 5.9 g/dL (6.5-8.0); Triglycerides 281 mg/dL (<150)
[2024-12-12 07:48] LABS: Glucose, Whole Blood 189 mg/dL (60-115)
[2024-12-12] MEDS: Insulin Lispro 100 UNIT/ML 3 ML VIAL SUBCUT ×4 (07:57→21:17)
[2024-12-12] MEDS: Enoxaparin Sodium 40 MG/0.4 ML SYRINGE SUBCUT (07:57)
[2024-12-12] MEDS: Lactated Ringers 1,000 ML 80 ML IVCONT (07:57)
[2024-12-12] MEDS: Insulin Glargine,Hum.rec.anlog 100 UNIT/ML 10 ML VIAL 40 UNIT SUBCUT ×2 (07:57→21:18)
[2024-12-12] MEDS: gemfibroziL 600 MG TABLET PO ×2 (07:58→16:52)
--- NOTE | 2024-12-12 10:18 | HO.PM.IMPN ---
Subjective Subjective Date of Service: 12/12/24 Interval History: Still with abdominal pain, no appetite Physical Exam Vital Signs: Vital Signs: Last Vital Signs Temp 97.6 F 12/12/24 07:23 Pulse 104 H 12/12/24 07:23 Resp 18 12/12/24 07:23 BP 122/71 12/12/24 07:23 Pulse Ox 91 L 12/12/24 07:23 O2 Del Method Room Air 12/12/24 07:23 O2 Flow Rate 1 12/09/24 22:00 BMI result Body Mass Index 39.4 General: AO X 3, no acute distress Resp: CTA bilateral, no accessory muscles used CVS: S1,S2,RRR GI: soft, mildly tender, non distended Neuro: motor grossly intact, alert Psych: appropriate affect, appropriate insight some white striae on shoulders and anticubital fossa Objective Data Active Medications Atorvastatin Calcium (Atorvastatin Calcium 80 Mg Tablet) 80 mg PO BEDTIME [facility] Last Admin: 12/11/24 19:48 Dose: 80 mg Documented By: LATA Dextrose (Dextrose 50 % 25 Gm/50 Ml Syringe) 25 gm IVPUSH Q30M PRN PRN Reason: BG < 70 Docusate Sodium (Docusate Sodium 100 Mg Capsule) 100 mg PO BID PRN PRN Reason: Constipation Last Admin: 12/12/24 03:33 Dose: 100 mg Documented By: LATA Enoxaparin Sodium (Enoxaparin Sodium 40 Mg/0.4 Ml Syringe) 40 mg SUBCUT Q24H [facility] Last Admin: 12/12/24 07:57 Dose: 40 mg Documented By: XIOMARA Gemfibrozil (Gemfibrozil 600 Mg Tablet) 600 mg PO BIDAC [facility] Last Admin: 12/12/24 07:58 Dose: 600 mg Documented By: XIOMARA Hydromorphone HCl (Hydromorphone Hcl 1 Mg/Ml Syringe) 0.5 mg IVPUSH Q2H PRN; Protocol PRN Reason: Pain, Severe (Pain Scale 7-10) Last Admin: 12/12/24 10:05 Dose: 0.5 mg Documented By: XIOMARA Lactated Ringer's (Lr) 1,000 mls @ 80 mls/hr IVCONT .[id number] [facility] Last Admin: 12/12/24 07:57 Dose: 80 mls/hr Documented By: XIOMARA Insulin Glargine (Insulin Glargine,Hum.Rec.Anlog 100 Unit/Ml 10 Ml Vial) 40 unit SUBCUT BID [facility] Last Admin: 12/12/24 07:57 Dose: 40 unit Documented By: XIOMARA Insulin Human Lispro (Insulin Lispro 100 Unit/Ml 3 Ml Vial) 0 unit SUBCUT QIDACHS [facility]; Protocol Last Admin: 12/12/24 07:57 Dose: 4 unit Documented By: XIOMARA Omeprazole (Omeprazole 20 Mg Capsule.Dr) 20 mg PO DAILY@629 [facility] Last Admin: 12/12/24 05:45 Dose: 20 mg Documented By: LATA Ondansetron HCl (Ondansetron Hcl 4 Mg/2 Ml Vial) 4 mg IVPUSH Q6H PRN PRN Reason: Nausea and Vomiting Last Admin: 12/10/24 05:08 Dose: 4 mg Documented By: NEELA Polyethylene Glycol (Polyethylene Glycol 3350 17 Gm Powd.Pack) 17 gm PO DAILY PRN PRN Reason: Constipation Last Admin: 12/11/24 19:48 Dose: 17 gm Documented By: LATA Sodium Chloride (0.9 % Sodium Chloride Flush 3 Ml Syringe) [facility] Last Admin: 12/12/24 08:04 Dose: Not Given Documented By: XIOMARA Non-Admin Reason: IV Running Labs 12/12/24 06:00 12/12/24 06:00 Labs: Laboratory Results - last 24 hr 12/11/24 12/11/24 12/11/24 05:56 11:40 16:25 MCV MCH MCHC RDW Plt Count MPV Absolute Nucleated RBC Nucleated RBC % (auto) Anion Gap Estim Creat Clear Calc Estimated GFR POC Glucose 224 H 217 H Random Glucose Calcium Magnesium Total Bilirubin Direct Bilirubin AST ALT Alkaline Phosphatase Total Protein Albumin Triglycerides Cholesterol LDL Cholesterol, Calc HDL Cholesterol TSH 1.67 12/11/24 12/12/24 12/12/24 19:41 06:00 07:43 MCV 78.3 L MCH 26.1 L MCHC 33.3 RDW 15.0 Plt Count 340 MPV 9.3 L Absolute Nucleated RBC 0.000 Nucleated RBC % (auto) 0.0 Anion Gap 12 Estim Creat Clear Calc 199.8 Estimated GFR > 60 POC Glucose 186 H 189 H Random Glucose 195 H Calcium 7.9 L D Magnesium 2.0 Total Bilirubin 1.7 H Direct Bilirubin 0.7 H AST 32 ALT 11 Alkaline Phosphatase 125 H Total Protein 5.9 L Albumin 2.7 L Triglycerides 281 H Cholesterol 187 LDL Cholesterol, Calc 110 H HDL Cholesterol 21 L TSH Assessment and Plan (1) Hypertriglyceridemia: Status: Acute Plan 29M PMH metabolic syndrome with morbid obesity, uncontrolled DM, HTN, hypertriglyceridemia with history of pancreatitis, NAFLD, 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 of note had stroke alert 12/08/24 for facial parasthesias Acute pancreatitis Due to hypertriglyceridemia Started on statin and gemfibrozil, triglycerides have decreased from 5000 to 281 Continue pain control not fully tolerating solids DKA Resolved, continue basal bolus insulin Will need insulin on discharge Episode of paresthesias with twitching Neuro appreciated, unlikely CVA/TIA, monitor for now Metabolic syndrome Weight loss recommended Glomus jugulare tumor Continue follow up outpatient with Dr. Iglesias DVT prophylaxis with Lovenox Full Code reason for continued hospitalization: Not tolerating p.o. Quality Stroke Does the patient have a stroke diagnosis?: No VTE Prior VTE?: No VTE Risk Level:: Medical - moderate - high VTE Device Contraindication: N/A - Device Ordered VTE Drug Contraindication: N/A - Med Ordered
[2024-12-12 11:35] LABS: Glucose, Whole Blood 200 mg/dL (60-115)
[2024-12-12] MEDS: HYDROmorphone HCl 0.5 MG/0.5 ML SYRINGE IVPUSH (15:35)
[2024-12-12 16:04] LABS: Glucose, Whole Blood 196 mg/dL (60-115)
[2024-12-12] MEDS: ondansetron HCL 4 MG/2 ML VIAL IVPUSH (17:32)
[2024-12-12] MEDS: HYDROmorphone HCl 1 MG/ML SYRINGE IVPUSH ×3 (17:54→23:25)
[2024-12-12] MEDS: iohexoL 350 MG/ML 100 ML INFUS..BTL 85 ML IV (19:45)
[2024-12-12] MEDS: 0.9 % Sodium Chloride Flush 3 ML SYRINGE IVFLUSH (20:32)
[2024-12-12] MEDS: Atorvastatin Calcium 80 MG TABLET PO (20:32)
[2024-12-12] MEDS: polyethylene glycoL 3350 17 GM POWD.PACK PO (20:42)
[2024-12-12 21:04] LABS: Glucose, Whole Blood 168 mg/dL (60-115)
[2024-12-12 23:27] LABS: Glucose, Whole Blood 196 mg/dL (60-115)
[2024-12-12] MEDS: Nitroglycerin 0.4 MG TAB.SUBL SUBLINGUAL (23:46)
[2024-12-13] MEDS: Lactated Ringers 1,000 ML 80 ML IVCONT ×2 (00:24→12:09)
[2024-12-13 00:41] LABS: D Dimer High Sensitivity 2978 NG/ML
[2024-12-13 00:56] LABS: Troponin-I High Sensitivity < 2.7 ng/L (<3.5-35.0)
[2024-12-13] MEDS: HYDROmorphone HCl 1 MG/ML SYRINGE IVPUSH ×6 (01:33→13:15)
--- NOTE | 2024-12-13 03:18 | PC.NURSE ---
2319-Patient stating to have abdominal pain, but also chest pressure/pain which radiated to his back. He felt like his heart was racing, apical pulse 100-105 and he has been in that range, became restless, and moaning. at bedside to help with translation, hospitalist on duty alerted, EKG performed, labwork ordered, nitro SL also. vitals 140/[id number] oxygen at 2 liters N/C humidified with sats 92-94%. medicated with ivp Dilaudid as per SEP, Nitro one tab SL given at 2345, vitals 137/78-97-18 and chest pain went from 8/10 to 4/10 then to pain free to chest and able to sleep. Hospitalist came to room and did read EKG and talk to his .. Labs were drawn and results of DDimer sent to . Medicated with Dilaudid at 0133 but pt only stating to have abdominal Pain at this time. Will continue to monitor closely. Also to mention pt went down prior to this for a planned CT of his Abdomen via w/c at 193 and returned safely 1950
[2024-12-13 03:52] VITALS: BP 142/77; PULSE 90; RESP 18; TEMP 37.1; O2SAT 95
[2024-12-13] MEDS: Omeprazole 20 MG CAPSULE.DR PO (06:15)
[2024-12-13 06:27] LABS: Alanine Aminotransferase 14 U/L (0-40); Albumin Level 2.7 g/dL (3.5-5.0); Alkaline Phosphatase 126 U/L (39-117); Anion Gap 14 (12-20); Aspartate Amino Transferase 41 U/L (5-37); Bilirubin Direct 0.8 mg/dL (0.0-0.5); Bilirubin Total 1.5 mg/dL (0.0-1.0); Blood Urea Nitrogen 8 mg/dL (9-16); Calcium 8.2 mg/dL (8.4-10.2); Carbon Dioxide 26 mmol/L (22-29); Chloride 98 mmol/L (96-108); Creatinine Clr Calc Pharmacy 217.9; Estimated Glomerular Filt Rate > 60; Glucose Random 175 mg/dL (60-115); Magnesium 1.9 mg/dL (1.6-2.6); Sodium 134 mmol/L (135-145); Total Protein 6.1 g/dL (6.5-8.0)
[2024-12-13 07:14] VITALS: BP 135/65; PULSE 87; RESP 16; TEMP 36.7; O2SAT 92
[2024-12-13 07:31] LABS: Glucose, Whole Blood 172 mg/dL (60-115)
[2024-12-13 08:00] VITALS: BMI 41.0
[2024-12-13] MEDS: Famotidine/PF 20 MG/2 ML VIAL IVPUSH ×2 (08:42→21:18)
[2024-12-13] MEDS: gemfibroziL 600 MG TABLET PO ×2 (08:44→16:00)
[2024-12-13] MEDS: Enoxaparin Sodium 40 MG/0.4 ML SYRINGE SUBCUT (08:45)
[2024-12-13] MEDS: Insulin Lispro 100 UNIT/ML 3 ML VIAL SUBCUT ×3 (08:51→16:43)
[2024-12-13] MEDS: Insulin Glargine,Hum.rec.anlog 100 UNIT/ML 10 ML VIAL 40 UNIT SUBCUT (08:52)
--- NOTE | 2024-12-13 09:12 | HO.PM.IMPN ---
Subjective Subjective Date of Service: 12/13/24 Interval History: ongoing pain, lack of appetite Physical Exam Vital Signs: Vital Signs: Last Vital Signs Temp 98.1 F 12/13/24 07:14 Pulse 87 12/13/24 07:14 Resp 16 12/13/24 07:14 BP 135/65 12/13/24 07:14 Pulse Ox 92 12/13/24 07:14 O2 Del Method Room Air 12/13/24 07:14 O2 Flow Rate 2 12/13/24 03:52 BMI result Body Mass Index 39.4 General: AO X 3, no acute distress Resp: CTA bilateral, no accessory muscles used CVS: S1,S2,RRR GI: soft, mildly tender, non distended Neuro: motor grossly intact, alert Psych: appropriate affect, appropriate insight some white striae on shoulders and anticubital fossa Objective Data Active Medications Atorvastatin Calcium (Atorvastatin Calcium 80 Mg Tablet) 80 mg PO BEDTIME [facility] Last Admin: 12/12/24 20:32 Dose: 80 mg Documented By: CARMEN Dextrose (Dextrose 50 % 25 Gm/50 Ml Syringe) 25 gm IVPUSH Q30M PRN PRN Reason: BG < 70 Docusate Sodium (Docusate Sodium 100 Mg Capsule) 100 mg PO BID PRN PRN Reason: Constipation Last Admin: 12/12/24 03:33 Dose: 100 mg Documented By: LATA Enoxaparin Sodium (Enoxaparin Sodium 40 Mg/0.4 Ml Syringe) 40 mg SUBCUT Q24H [facility] Last Admin: 12/13/24 08:45 Dose: 40 mg Documented By: NERIS Famotidine (Famotidine/Pf 20 Mg/2 Ml Vial) 20 mg IVPUSH BID [facility] Last Admin: 12/13/24 08:42 Dose: 20 mg Documented By: NERIS Gemfibrozil (Gemfibrozil 600 Mg Tablet) 600 mg PO BIDAC [facility] Last Admin: 12/13/24 08:44 Dose: 600 mg Documented By: NERIS Hydromorphone HCl (Hydromorphone Hcl 1 Mg/Ml Syringe) 1 mg IVPUSH Q2H PRN; Protocol PRN Reason: Pain, Severe (Pain Scale 7-10) Last Admin: 12/13/24 08:39 Dose: 1 mg Documented By: NERIS Lactated Ringer's (Lr) 1,000 mls @ 125 mls/hr IVCONT .Q8H [facility] Last Admin: 12/13/24 00:24 Dose: 80 mls/hr Documented By: CARMEN Insulin Glargine (Insulin Glargine,Hum.Rec.Anlog 100 Unit/Ml 10 Ml Vial) 40 unit SUBCUT BID [facility] Last Admin: 12/13/24 08:52 Dose: 40 unit Documented By: NERIS Insulin Human Lispro (Insulin Lispro 100 Unit/Ml 3 Ml Vial) 0 unit SUBCUT QIDACHS [facility]; Protocol Last Admin: 12/13/24 08:51 Dose: 4 unit Documented By: NERIS Nitroglycerin (Nitroglycerin 0.4 Mg Tab.Subl) 0.4 mg SUBLINGUAL Q5MX3 PRN PRN Reason: Chest Pain Last Admin: 12/12/24 23:46 Dose: 0.4 mg Documented By: CARMEN Omeprazole (Omeprazole 20 Mg Capsule.Dr) 20 mg PO DAILY@0630 [facility] Last Admin: 12/13/24 06:15 Dose: 20 mg Documented By: CARMEN Ondansetron HCl (Ondansetron Hcl 4 Mg/2 Ml Vial) 4 mg IVPUSH Q6H PRN PRN Reason: Nausea and Vomiting Last Admin: 12/12/24 17:32 Dose: 4 mg Documented By: XIOMARA Polyethylene Glycol (Polyethylene Glycol 3350 17 Gm Powd.Pack) 17 gm PO DAILY PRN PRN Reason: Constipation Last Admin: 12/12/24 20:42 Dose: 17 gm Documented By: CARMEN Sodium Chloride (0.9 % Sodium Chloride Flush 3 Ml Syringe) 3 ml IVFLUSH QSHIFT [facility] Last Admin: 12/13/24 08:52 Dose: Not Given Documented By: NERIS Non-Admin Reason: IV Running Labs 12/12/24 06:00 12/13/24 05:41 Labs: Laboratory Results - last 24 hr 12/12/24 12/12/24 12/12/24 11:31 16:00 21:01 D-Dimer High Sensitivty Anion Gap Estim Creat Clear Calc Estimated GFR POC Glucose 200 H 196 H 168 H Random Glucose Calcium Magnesium Total Bilirubin Direct Bilirubin AST ALT Alkaline Phosphatase Troponin I High Sens Total Protein Albumin 12/12/24 12/13/24 12/13/24 23:23 00:29 00:29 D-Dimer High Sensitivty 2978 Anion Gap Estim Creat Clear Calc Estimated GFR POC Glucose 196 H Random Glucose Calcium Magnesium Total Bilirubin Direct Bilirubin AST ALT Alkaline Phosphatase Troponin I High Sens < 2.7 Cancelled Total Protein Albumin 12/13/24 12/13/24 05:41 07:18 D-Dimer High Sensitivty Anion Gap 14 Estim Creat Clear Calc 217.9 Estimated GFR > 60 POC Glucose 172 H Random Glucose 175 H Calcium 8.2 L Magnesium 1.9 Total Bilirubin 1.5 H Direct Bilirubin 0.8 H AST 41 H ALT 14 Alkaline Phosphatase 126 H Troponin I High Sens Total Protein 6.1 L Albumin 2.7 L Assessment and Plan (1) Hypertriglyceridemia: Status: Acute Plan 29M PMH metabolic syndrome with morbid obesity, uncontrolled DM, HTN, hypertriglyceridemia with history of pancreatitis, NAFLD, 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 of note had stroke alert 12/08/24 for facial parasthesias Acute pancreatitis Due to hypertriglyceridemia Started on statin and gemfibrozil, triglycerides have decreased from 5000 to 281 worsening pain, repeat ct abd with phlegmon and free fluid, will start zosyn, gi consult DKA Resolved, continue basal bolus insulin Will need insulin on discharge Episode of paresthesias with twitching Neuro appreciated, unlikely CVA/TIA, monitor for now Metabolic syndrome Weight loss recommended Glomus jugulare tumor Continue follow up outpatient with Dr. Iglesias DVT prophylaxis with Lovenox Full Code reason for continued hospitalization: Not tolerating p.o. Quality Stroke Does the patient have a stroke diagnosis?: No VTE Prior VTE?: No VTE Risk Level:: Medical - moderate - high VTE Device Contraindication: N/A - Device Ordered VTE Drug Contraindication: N/A - Med Ordered
[2024-12-13] MEDS: Piperacillin Sodium/Tazobactam 3.375 GM in 0.9 % Sodium Chloride 50 ML IV ×3 (10:19→21:29)
--- NOTE | 2024-12-13 10:39 | P.CDIM_ITS ---
PROVIDER RESPONSE TEXT: To clarify, the appropriate diagnosis supported by the clinical indicators: Other (explain): not peritonitis QUERY TEXT: PHYSICIAN'S DOCUMENTATION REQUEST Date of Query: 12/13/2024 10:25 AM EDT Patient Name: QAMAR Dickinson Admit Date: 12/08/2024 Dear Ananth Rasmussen MD, A review of the medical record indicates additional documentation may be needed. Please review below and update the documentation accordingly. Clinical Indicators: The following diagnoses or signs and symptoms were noted in the patient record: ongoing pain and lack of appetite treated for acute pancreatitis repeat CT abdomen with phlegmon and free fluid Start IV Zosyn GI consult Based on the above, could you clarify the appropriate diagnosis, if significant, that supports the ab ove abnormalities and additional evaluation, monitoring, and/or treatment rendered: Acute peritonitis Other (explain) Clinically unable to determine (explain) Thank you, Ashley Javier RN Use of terms such as suspected, likely, concern for, or probable (associated with a specific diagnosi s that is being evaluated, monitored, or treated as if it exists) are acceptable and can be coded in the inpatient se tting, when documented at the time of discharge. Please use your independent medical judgment in providing your response. THIS QUERY IS PART OF THE PERMANENT MEDICAL RECORD
[2024-12-13 11:21] LABS: Glucose, Whole Blood 197 mg/dL (60-115)
--- NOTE | 2024-12-13 13:54 | P.CONGS_ITS ---
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 Patient has been experiencing severe abdominal pain since monday. Patient describes the pain as all over the abdomen. He states yesterday he began to feel better, but was given regular diet and his pain worsened. he began experiencing nausea, denies vomiting. Denies fever/chills. Denies recent bowel movement. Patients CT scan on admission showing acute pancreatitis without pancreatic fluid collection. Repeat imaging from 12/12/24 shows significant increase in peripancreatic inflammatory changes, free fluid and phlegmon without abscess. On admission, triglyceride levels were elevated at 5289, have been trending downward. Lipase elevated at 1532 also trending down to 592. Patient reports one prior episode of pancreatitis in the past, was treated at [facility]. Denies history of abdominal surgery. <Brady Horn PA-C - Last Filed: 12/13/24 14:26> Review of Systems 2 Review of Systems: Yes all other systems are reviewed and are negative < Brady Horn PA-C - Last Filed: 12/13/24 14:26> Constitutional: Constitutional: Denies chills and Denies fever(s) <Brady Horn PA-C - Last Filed: 12/13/24 14:26> Gastrointestinal: Gastrointestinal: Reports abdominal pain, Reports nausea and Denies vomiting <Brady Horn PA-C - Last Filed: 12/13/24 14:26> Comments: denies BM <Brady Horn PA-C - Last Filed: 12/13/24 14:26> [facility], LATER [facility] Past Medical History Medical History: Medical History (Updated 12/13/24 @ 14:09 by Brady Horn PA-C) Diabetes mellitus Asthma No known health problems <Brady Horn PA-C - Last Filed: 12/13/24 14:26> Family History Family History: Family History Maternal Grandmother Diabetes <Brady Horn PA-C - Last Filed: 12/13/24 14:26> Social History Social History: Social History Household Members: Significant Other Housing: Apartment Do you presently have visiting nurse or other home services: No Alcohol intake: never Comment: Spouse at bedside Patient Tobacco Use Status: Never used Tobacco Smoked in Last 30 Days: No Use of substances other than those prescribed or required for medical reasons: No Currently Displaying Signs/Symptoms of Drug Intoxication Withdrawal: No Have you been hit, kicked, punched, or otherwise hurt by someone within the past year? If so, by whom?: No Do you feel safe in your current relationship?: Yes Is there a partner from a previous relationship who is making you feel unsafe now?: No Are you made to feel afraid or neglected: No Advance Directives: No Advance Directives Information Provided: No Advance Directives on File: No Do you have a plan to hurt others: No Plan Recently lost weight without trying: No Eating poorly because of decreased appetite: No Nutrition Risks: No Nutritional Risk service: No Current occupational status: employed <Brady Horn PA-C - Last Filed: 12/13/24 14:26> Meds Allergies/Adverse reactions: Allergies Allergy/AdvReac Type Severity Reaction Status Date / Time shellfish derived Allergy Intermediate RASH Verified 12/07/24 20:11 [SHELLFISH DERIVED] <Brady Horn PA-C - Last Filed: 12/13/24 14:26> Active Medications: Current Medications Atorvastatin Calcium (Atorvastatin Calcium 80 Mg Tablet) 80 mg PO BEDTIME [facility] Last Admin: 12/12/24 20:32 Dose: 80 mg Dextrose (Dextrose 50 % 25 Gm/50 Ml Syringe) 25 gm IVPUSH Q30M PRN PRN Reason: BG < 70 Docusate Sodium (Docusate Sodium 100 Mg Capsule) 100 mg PO BID PRN PRN Reason: Constipation Last Admin: 12/12/24 03:33 Dose: 100 mg Enoxaparin Sodium (Enoxaparin Sodium 40 Mg/0.4 Ml Syringe) 40 mg SUBCUT Q24H [place] Last Admin: 12/13/24 08:45 Dose: 40 mg Famotidine (Famotidine/Pf 20 Mg/2 Ml Vial) 20 mg IVPUSH BID [facility] Last Admin: 12/13/24 08:42 Dose: 20 mg [facility]fibrozil ([facility] 600 Mg Tablet) [facility] Last Admin: 12/13/24 08:44 Dose: 600 mg Hydromorphone HCl (Hydromorphone Hcl 2 Mg/Ml Vial) 1.5 mg IVPUSH Q2H PRN; Protocol PRN Reason: Pain, Severe (Pain Scale 7-10) Lactated Ringer's (Lr) 1,000 mls @ 125 mls/hr IVCONT .Q8H [facility] Last Admin: 12/13/24 12:09 Dose: 80 mls/hr Piperacillin Sod/Tazobactam (Sod 3.375 gm/ Sodium Chloride) 50 mls @ 100 mls/hr IV Q6H [facility] Last Infusion: 12/13/24 10:58 Dose: Infused Insulin Glargine (Insulin Glargine,Hum.Rec.Anlog 100 Unit/Ml 10 Ml Vial) 40 unit SUBCUT BID [facility] Last Admin: 12/13/24 08:52 Dose: 40 unit Insulin Human Lispro (Insulin Lispro 100 Unit/Ml 3 Ml Vial) 0 unit SUBCUT QIDACHS [facility]; Protocol Last Admin: 12/13/24 12:22 Dose: 4 unit Nitroglycerin (Nitroglycerin 0.4 Mg Tab.Subl) 0.4 mg SUBLINGUAL Q5MX3 PRN PRN Reason: Chest Pain Last Admin: 12/12/24 23:46 Dose: 0.4 mg Omeprazole (Omeprazole 20 Mg Capsule.Dr) 20 mg PO DAILY@0630 [facility] Last Admin: 12/13/24 06:15 Dose: 20 mg Ondansetron HCl (Ondansetron Hcl 4 Mg/2 Ml Vial) 4 mg IVPUSH Q6H PRN PRN Reason: Nausea and Vomiting Last Admin: 12/12/24 17:32 Dose: 4 mg Polyethylene Glycol (Polyethylene Glycol 3350 17 Gm Powd.Pack) 17 gm PO DAILY PRN PRN Reason: Constipation Last Admin: 12/12/24 20:42 Dose: 17 gm Sodium Chloride (0.9 % Sodium Chloride Flush 3 Ml Syringe) 3 ml IVFLUSH QSHIFT [place] Last Admin: 12/13/24 08:52 Dose: Not Given <DENISA Armijo Last Filed: 12/13/24 14:26> Home medications: Home Medications ?Medication ?Instructions ?Recorded ?Confirmed ?Last Taken ?Type metformin 750 mg tablet,extended 750 mg PO BID 12/08/24 12/08/24 12/06/24 History release 24 hr <DENISA Armijo Last Filed: 12/13/24 14:26> Physical Exam 2 Vital Signs: Vital Signs: Last Vital Signs Temp 98.1 F 12/13/24 07:14 Pulse 87 12/13/24 07:14 Resp 16 12/13/24 07:14 BP 135/65 12/13/24 07:14 Pulse Ox 92 12/13/24 07:14 O2 Del Method Room Air 12/13/24 07:14 O2 Flow Rate 2 12/13/24 03:52 BMI result Body Mass Index 41.0 <DENISA Armijo Last Filed: 12/13/24 14:26> Const: General: no acute distress; No comfortable <DENISA Armijo Last Filed: 12/13/24 14:26> Nutritional Appearance: obese <DENISA Armijo Last Filed: 12/13/24 14:26> Orientation/consciousness: patient oriented x3 <DENISA Armijo Last Filed: 12/13/24 14:26> Resp: Effort & Inspection: normal respiratory effort and able to speak in complete sentences <DENISA Armijo Last Filed: 12/13/24 14:26> GI: Other: Protuberant abdomen. No flank ecchymosis <DENISA Armijo Last Filed: 12/13/24 14:26> Palpation (GI): Soft to palpation, not firm, Tenderness to palpation present (GI) (generalized tenderness throughout), no guarding and not rigid <DENISA Armijo Last Filed: 12/13/24 14:26> Neuro: General: patient oriented x3 <DENISA Armijo Last Filed: 12/13/24 14:26> Results Labs Result diagrams: 12/12/24 06:00 12/13/24 05:41 <Brady Horn PA-C - Last Filed: 12/13/24 14:26> Labs: Abnormal lab results 12/12/24 12/12/24 12/12/24 Range/Units 16:00 21:01 23:23 Sodium (135-145) mmol/L BUN (9-16) mg/dL POC Glucose 196 H 168 H 196 H (60-115) mg/dL Random Glucose (60-115) mg/dL Calcium (8.4-10.2) mg/dL Total Bilirubin (0.0-1.0) mg/dL Direct Bilirubin (0.0-0.5) mg/dL AST (5-37) U/L Alkaline Phosphatase (39-117) U/L Total Protein (6.5-8.0) g/dL Albumin (3.5-5.0) g/dL 12/13/24 12/13/24 12/13/24 Range/Units 05:41 07:18 11:13 Sodium 134 L (135-145) mmol/L BUN 8 L (9-16) mg/dL POC Glucose 172 H 197 H (60-115) mg/dL Random Glucose 175 H (60-115) mg/dL Calcium 8.2 L (8.4-10.2) mg/dL Total Bilirubin 1.5 H (0.0-1.0) mg/dL Direct Bilirubin 0.8 H (0.0-0.5) mg/dL AST 41 H (5-37) U/L Alkaline Phosphatase 126 H (39-117) U/L Total Protein 6.1 L (6.5-8.0) g/dL Albumin 2.7 L (3.5-5.0) g/dL [facility] 12/13/24 05:41 Sodium 134 L Potassium 4.0 Chloride 98 Carbon Dioxide 26 BUN 8 L Creatinine 0.77 Calcium 8.2 L Liver Function 12/13/24 Range/Units 05:41 Total Bilirubin 1.5 H (0.0-1.0) mg/dL Direct Bilirubin 0.8 H (0.0-0.5) mg/dL AST 41 H (5-37) U/L ALT 14 (0-40) U/L Alkaline Phosphatase 126 H (39-117) U/L Albumin 2.7 L (3.5-5.0) g/dL Urine 12/07/24 Range/Units 20:27 Urine Color Yellow Urine Appearance Clear Urine pH 5.5 (5.0-9.0) Ur Specific [place] >= 1.030 H (1.005-1.025) Urine Protein 300 (3+) H (Neg-Trace) mg/dL Urine Glucose (UA) >=1000 H (Negative) mg/dL All other labs normal. <Brady Horn PA-C - Last Filed: 12/13/24 14:26> Assessment and Plan (1) Acute pancreatitis: Qualifiers: Acute pancreatitis complication: no infection or necrosis P ancreatitis type: other Qualified Code(s): K85.80 - Other acute pancreatitis without necrosis or infection <Brady Horn PA-C - Last Filed: 12/13/24 14:26> Status: Acute <Brady Horn PA-C - Last Filed: 12/13/24 14:26> 29 year old male with PMHx significant for metabolic syndrome with morbid obesity, uncontrolled DM, HTN, hypertriglyceridemia with history of pancreatitis, NAFLD, glomus jugulare tumor seen in consult for acute pancreatitis secondary to hypertriglyeridemia. Patient experiencing significant pain throughout the abdomen. Denies fever/chills. Patient initially was improving yesterday, was given regular diet, for which he was unable to tolerate, and began experiencing worsening pain. He was downgraded to clear liquid diet. I have reviewed the patients imaging and the radiology impression, on admission was found to have acute pancreatitis without necrosis or fluid collection, on repeat imaging patient was found to have significant inflammatory changes with large amounts of peripancreatic fluid and phelgmon without evidence of abscess or necrosis. Pancreatic enzymes and triglycerides are trending down. patient is afebrile. On exam he is tender throughout the abdomen without guarding. No evidence of flank ecchymosis. Recommend NPO and continue with supportive management of acute pancreatitis, no plan for surgical intervention at this time. If patient not improving, recommend repeat imaging for formation of abscess or necrosis. If he is found to have this, will need to transfer to a tertiary hospital for further intervention. Will continue to follow <Brady Horn PA-C - Last Filed: 12/13/24 14:26> 29 year old male with PMHx significant for metabolic syndrome with morbid obesity, uncontrolled DM, HTN, hypertriglyceridemia with history of pancreatitis, NAFLD, glomus jugulare tumor seen in consult for acute pancreatitis secondary to hypertriglyeridemia. Patient experiencing significant pain throughout the abdomen. Denies fever/chills. Patient initially was improving yesterday, was given regular diet, for which he was unable to tolerate, and began experiencing worsening pain. He was downgraded to clear liquid diet. I have reviewed the patients imaging and the radiology impression, on admission was found to have acute pancreatitis without necrosis or fluid collection, on repeat imaging patient was found to have significant inflammatory changes with large amounts of peripancreatic fluid and phelgmon without evidence of abscess or necrosis. Pancreatic enzymes and triglycerides are trending down. patient is afebrile. On exam he is tender throughout the abdomen without guarding. No evidence of flank ecchymosis. Recommend NPO and continue with supportive management of acute pancreatitis, no plan for surgical intervention at this time. If patient not improving, recommend repeat imaging for formation of abscess or necrosis. If he is found to have this, will need to transfer to a tertiary hospital for further intervention. Will continue to follow Patient seen and examined and agree with the above assessment. CT AP reviewed. Marked inflammation surrounding the pancreas noted, increased from prior CT. Agree with strict bowel rest to prevent any further pancreatic stimulation. Continue supportive care. <Tito Sawyer MD - Last Filed: 12/13/24 18:17> Procedures Date of Service Date of Service: 12/13/24 <Brady Horn PA-C - Last Filed: 12/13/24 14:26> 12/13/24 <Tito Sawyer MD - Last Filed: 12/13/24 18:17>
--- NOTE | 2024-12-13 14:27 | MHC.CM.PN ---
EMR reviewed and per MD rounds, pt is not medically cleared for discharge due to management of acute pancreatitis, awaiting PO tolerance.
[2024-12-13 15:21] VITALS: BP 150/67; PULSE 96; RESP 18; TEMP 37.1; O2SAT 92
[2024-12-13] MEDS: HYDROmorphone HCl 2 MG/ML VIAL 1.5 MG IVPUSH ×4 (15:57→23:19)
[2024-12-13 16:07] LABS: Glucose, Whole Blood 171 mg/dL (60-115)
[2024-12-13 19:25] VITALS: BP 141/76; PULSE 86; RESP 19; TEMP 36.6; O2SAT 95
--- NOTE | 2024-12-13 19:33 | PM.EVENT ---
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 Worsening sx and CT in relation to increasing diet. However CT scan is negative for signs of infection or necrosis. Abdominal exam remains distended and tender. Rec: NPO, supportive care, F/U labs, GB U/S to R/O gallstones as a contributing factor. If things worsen with fevers, signs of necrotizing pancreatitis, etc, he would need transfer to a tertiary facility. D/W patient, girlfriend, and family in detail. They are comfortable with this plan. Thanks Time Spent With Patient Time: Total time managing care of this patient today ____ minutes.
[2024-12-13 20:34] LABS: Glucose, Whole Blood 165 mg/dL (60-115)
[2024-12-13] MEDS: Atorvastatin Calcium 80 MG TABLET PO (21:18)
[2024-12-13] MEDS: 0.9 % Sodium Chloride Flush 3 ML SYRINGE IVFLUSH (21:24)
[2024-12-14] MEDS: HYDROmorphone HCl 2 MG/ML VIAL 1.5 MG IVPUSH ×5 (02:13→13:03)
[2024-12-14] MEDS: Lactated Ringers 1,000 ML 80 ML IVCONT (02:15)
[2024-12-14 03:58] VITALS: BP 145/75; PULSE 96; RESP 17; TEMP 36.7; O2SAT 95
--- NOTE | 2024-12-14 04:16 | CONS_ITS ---
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 His parents are also present who helped a little bit with the history. History has also been obtained from the medical record. The patient is a 29-year-old male who was admitted here on December 08 with abdominal pain and pancreatitis. He does have underlying diabetes for which he had been on metformin, but is currently receiving insulin in the hospital. He describes that he was hospitalized at [facility] about a year or 2 ago for pancreatitis, but is not sure what caused that. He was at [facility] for about 1 week as well. Since that hospitalization at [facility], he did not have any recurrent problems with pancreatitis up until this admission. He does not smoke nor use any alcohol. There is no family history of pancreatitis. He has not been using any new medication. Since admission here in the hospital, his abdominal pain has slightly been improving but flared up again yesterday after he had some food. He reports that today, things are somewhat better, but he is still having significant pain requiring regular doses of analgesics. He reports that he is urinating normally, but has not been passing any gas nor stool. There has been no vomiting. He denies any preceding history of jaundice at home. He did have vomiting at home, but there was no bleeding. He has not noticed any melena. His medications at home included only metformin. His medications here in the hospital include atorvastatin, Lovenox, famotidine, gemfibrozil, hydromorphone p.r.n., insulin, omeprazole, Zofran p.r.n., IV Zosyn, MiraLAX p.r.n. PAST MEDICAL HISTORY: Diabetes mellitus. Previous history of asthma that has resolved. 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 There is no reported history of any surgeries. There is no reported history of heart disease or stroke. 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 He does not smoke nor he use any alcohol. FAMILY HISTORY: Noncontributory and specifically without any history of pancreatitis. REVIEW OF SYSTEMS: CONSTITUTIONAL: Prior to admission here, he has been feeling fairly well without any abdominal pain on a chronic basis. CARDIAC: No chest pain. PULMONARY: No coughing or hemoptysis. GI: As above. PHYSICAL EXAMINATION: GENERAL: The patient is a cooperative, but uncomfortable appearing male but in no distress. Anicteric sclerae. CHEST: Clear. CARDIAC: Normal S1, S2. ABDOMEN: Distended with diminished bowel sounds. There is a diffuse tenderness but without mass or rebound. LABORATORY DATA: White blood cell count 9.6, hemoglobin 11.8, platelets 340,000. Hemoglobin on admission was 13.8. LFTs from today show a total bilirubin of 1.5, direct bilirubin 0.8, AST 41, ALT 14, alkaline phosphatase 126, albumin 2.7. His admitting labs were notable for a lipase of 1531 with a repeat of 592 on December 10. He also had elevated triglyceride levels of over 5000 on admission with the followup on December 12. He had a CT scan, both on the day of admission on December 07 and repeat yesterday describing findings consistent with pancreatitis, although the CT scan yesterday showed increase in the pancreatic inflammation with surrounding fluid and what is described as a phlegmon. However, there is no sign of any necrosis or abscess. The liver and gallbladder appeared normal. IMPRESSION: Given the patient's clinical history, this seems to be a case of pancreatitis in relation to hypertriglyceridemia based on his admitting laboratories. His course has been consistent with a slowly resolving course with some possible exacerbation in relation to the initiation of a diet. It would also be important to exclude gallstones as an etiology of the pancreatitis that were not visualized on the CT scan. At this point, I would recommend strict bowel rest since he did not do well with any food that he tried yesterday. I would continue to follow his laboratories. I have also ordered an abdominal ultrasound to check for gallstones. I will continue supportive care in general. There does not appear to be any definitive signs of infection, so if this remains the case, his antibiotics could probably be stopped within the next day or 2. If things remain stable and continue to improve, then I would continue the course of supportive care. On the other hand, if there develops any signs of infection or worsening pancreatitis, then he may need transfer to a tertiary center. At this point, I do not think there is any indication for an ERCP given no sign of any biliary obstruction. This has all been discussed in detail with the patient, his girlfriend, and his parents. They are comfortable with the plan. MD DEBORAH Wilcox/DAPHNE / [phone] MTDD
[2024-12-14] MEDS: Piperacillin Sodium/Tazobactam 3.375 GM in 0.9 % Sodium Chloride 50 ML IV ×4 (04:33→21:54)
[2024-12-14] MEDS: Omeprazole 20 MG CAPSULE.DR PO (06:12)
[2024-12-14 07:35] VITALS: BP 119/60; PULSE 89; RESP 18; TEMP 36.4; O2SAT 92
[2024-12-14 07:46] LABS: Hematocrit 31.8 % (42.0-52.0); Hemoglobin 10.1 g/dl (14.0-18.0); Mean Corpuscular HGB Conc 31.8 g/dl (31.0-36.0); Mean Corpuscular Hemoglobin 25.5 pg (27.0-33.0); Mean Corpuscular Volume 80.3 fL (80.0-98.0); Mean Platelet Volume 9.2 fL (9.4-12.4); NRBC Pct Auto 0.3 /100WBC (0.0-0.2); Platelet Count 328 X10*3/uL (160-400); Red Blood Count 3.96 X10*6/uL (4.60-5.80); Red Cell Distribution Width 14.9 % (11.0-16.0); White Blood Count 13.3 X10*3/uL (4.8-10.8)
[2024-12-14 07:50] LABS: INTERNATIONAL NORM RATIO 1.4 (0.9-1.1); Prothrombin Time 15.7 SEC (10.9-12.4)
[2024-12-14 07:53] LABS: Glucose, Whole Blood 166 mg/dL (60-115)
[2024-12-14 08:03] LABS: Alanine Aminotransferase 14 U/L (0-40); Albumin Level 2.7 g/dL (3.5-5.0); Alkaline Phosphatase 128 U/L (39-117); Anion Gap 13 (12-20); Aspartate Amino Transferase 44 U/L (5-37); Bilirubin Direct 0.7 mg/dL (0.0-0.5); Bilirubin Total 1.2 mg/dL (0.0-1.0); Blood Urea Nitrogen 8 mg/dL (9-16); Calcium 8.1 mg/dL (8.4-10.2); Carbon Dioxide 28 mmol/L (22-29); Chloride 98 mmol/L (96-108); Estimated Glomerular Filt Rate > 60; Glucose Random 158 mg/dL (60-115); Lipase 196 U/L (8-78); Magnesium 1.9 mg/dL (1.6-2.6); Sodium 135 mmol/L (135-145); Total Protein 6.1 g/dL (6.5-8.0)
--- NOTE | 2024-12-14 09:45 | PM.PNGS ---
Subjective Subjective Date of Service: 12/14/24 Interval history: Patient continues to report abdominal pain especially in the epigastrium and left upper quadrant Physical Exam Vital Signs: Vital Signs: Last Vital Signs Temp 97.5 F 12/14/24 07:35 Pulse 89 12/14/24 07:35 Resp 18 12/14/24 07:35 BP 119/60 12/14/24 07:35 Pulse Ox 92 12/14/24 07:35 O2 Del Method Nasal Cannula 12/14/24 07:35 O2 Flow Rate 2.0 12/14/24 07:35 BMI result Body Mass Index 41.0 Const: General: tired appearing Nutritional Appearance: well nourished Orientation/consciousness: patient oriented x3 Eyes: General: appearance normal, both eyes and all related structures Resp: Effort & Inspection: normal respiratory effort GI: Other: Distended, tender in the epigastrium, periumbilical, right upper and left upper quadrants. No peritoneal signs. Skin: Other: Warm and dry Neuro: General: patient oriented x3 Objective Data Active Medications Atorvastatin Calcium (Atorvastatin Calcium 80 Mg Tablet) 80 mg PO BEDTIME [facility] Last Admin: 12/13/24 21:18 Dose: 80 mg Documented By: ALISSON Dextrose (Dextrose 50 % 25 Gm/50 Ml Syringe) 25 gm IVPUSH Q30M PRN PRN Reason: BG < 70 Docusate Sodium (Docusate Sodium 100 Mg Capsule) 100 mg PO BID PRN PRN Reason: Constipation Last Admin: 12/12/24 03:33 Dose: 100 mg Documented By: LATA Enoxaparin Sodium (Enoxaparin Sodium 40 Mg/0.4 Ml Syringe) 40 mg SUBCUT Q24H [facility] Last Admin: 12/13/24 08:45 Dose: 40 mg Documented By: NERIS Famotidine (Famotidine/Pf 20 Mg/2 Ml Vial) 20 mg IVPUSH BID [facility] Last Admin: 12/13/24 21:18 Dose: 20 mg Documented By: ALISSON Gemfibrozil (Gemfibrozil 600 Mg Tablet) 600 mg PO BIDAC [facility] Last Admin: 12/13/24 16:00 Dose: 600 mg Documented By: NERIS Hydromorphone HCl (Hydromorphone Hcl 2 Mg/Ml Vial) 1.5 mg IVPUSH Q2H PRN; Protocol PRN Reason: Pain, Severe (Pain Scale 7-10) Last Admin: 12/14/24 09:42 Dose: 1.5 mg Documented By: NERIS Lactated Ringer's (Lr) 1,000 mls @ 125 mls/hr IVCONT .Q8H [facility] Last Infusion: 12/14/24 05:13 Dose: 125 mls/hr Documented By: ALISSON Piperacillin Sod/Tazobactam (Sod 3.375 gm/ Sodium Chloride) 50 mls @ 100 mls/hr IV Q6H [facility] Last Infusion: 12/14/24 05:00 Dose: Infused Documented By: ALISSON Insulin Glargine (Insulin Glargine,Hum.Rec.Anlog 100 Unit/Ml 10 Ml Vial) 15 unit SUBCUT BID [facility] Insulin Human Lispro (Insulin Lispro 100 Unit/Ml 3 Ml Vial) 0 unit SUBCUT QIDACHS [facility]; Protocol Last Admin: 12/14/24 08:02 Dose: Not Given Documented By: NERIS Non-Admin Reason: Physician Held Med Nitroglycerin (Nitroglycerin 0.4 Mg Tab.Subl) 0.4 mg SUBLINGUAL Q5MX3 PRN PRN Reason: Chest Pain Last Admin: 12/12/24 23:46 Dose: 0.4 mg Documented By: CARMEN Omeprazole (Omeprazole 20 Mg Capsule.Dr) 20 mg PO DAILY@0630 [facility] Last Admin: 12/14/24 06:12 Dose: 20 mg Documented By: ALISSON Ondansetron HCl (Ondansetron Hcl 4 Mg/2 Ml Vial) 4 mg IVPUSH Q6H PRN PRN Reason: Nausea and Vomiting Last Admin: 12/12/24 17:32 Dose: 4 mg Documented By: XIOMARA Polyethylene Glycol (Polyethylene Glycol 3350 17 Gm Powd.Pack) 17 gm PO DAILY PRN PRN Reason: Constipation Last Admin: 12/12/24 20:42 Dose: 17 gm Documented By: CARMEN Sodium Chloride (0.9 % Sodium Chloride Flush 3 Ml Syringe) [facility] Last Admin: 12/13/24 21:24 Dose: 3 ml Documented By: ALISSON Labs 12/14/24 07:26 12/14/24 07:25 Labs: Laboratory Results - last 24 hr 12/13/24 12/13/24 12/13/24 11:13 16:02 20:30 MCV MCH MCHC RDW Plt Count MPV Absolute Nucleated RBC Nucleated RBC % (auto) PT INR Anion Gap Estim Creat Clear Calc Estimated GFR POC Glucose 197 H 171 H 165 H Random Glucose Calcium Magnesium Total Bilirubin Direct Bilirubin AST ALT Alkaline Phosphatase Total Protein Albumin Lipase 12/14/24 12/14/24 12/14/24 07:25 07:26 07:38 MCV 80.3 MCH 25.5 L MCHC 31.8 RDW 14.9 Plt Count 328 MPV 9.2 L Absolute Nucleated RBC 0.040 H Nucleated RBC % (auto) 0.3 H PT 15.7 H D INR 1.4 H Anion Gap 13 Estim Creat Clear Calc 209.0 Estimated GFR > 60 POC Glucose 166 H Random Glucose 158 H Calcium 8.1 L Magnesium 1.9 Total Bilirubin 1.2 H Direct Bilirubin 0.7 H AST 44 H ALT 14 Alkaline Phosphatase 128 H Total Protein 6.1 L Albumin 2.7 L Lipase 196 H ABG Interpretation: Ultrasound abdomen reviewed, final report pending. No gallstones noted but there is some biliary sludge. Wall thickness appears normal. There is tenderness to palpation of the gallbladder however clinically the patient has tenderness throughout the abdomen. No evidence of acute cholecystitis to my evaluation. Microbiology Microbiology Results: Microbiology 12/09/24 00:16 Blood Culture - Final Blood - Venous No growth after 5 days. 12/08/24 18:00 Blood Culture - Final Blood - Venous No growth after 5 days. Procedures Date of Service Date of Service: 12/14/24 Progress Note: A&P Assessment and plan (1) Acute pancreatitis: Status: Acute Plan 21-year-old male patient with severe pancreatitis with marked inflammation probably related to elevated triglycerides. Ultrasound reviewed, sludge noted, should not cause common duct obstruction. WBC elevated today. Continue supportive care with bowel rest. If evidence of necrosis or abscess, recommend transfer to tertiary care center. Time Spent With Patient Time: Total time managing care of this patient today ____ minutes. Quality Stroke Does the patient have a stroke diagnosis?: No VTE Prior VTE?: No VTE Risk Level:: Medical - moderate - high VTE Device Contraindication: N/A - Device Ordered VTE Drug Contraindication: N/A - Med Ordered
[2024-12-14] MEDS: Enoxaparin Sodium 40 MG/0.4 ML SYRINGE SUBCUT (09:55)
[2024-12-14] MEDS: gemfibroziL 600 MG TABLET PO ×2 (09:56→16:14)
--- NOTE | 2024-12-14 10:19 | HO.PM.IMPN ---
Subjective Subjective Date of Service: 12/14/24 Interval History: worsening pain Physical Exam Vital Signs: Vital Signs: Last Vital Signs Temp 97.5 F 12/14/24 07:35 Pulse 89 12/14/24 07:35 Resp 18 12/14/24 07:35 BP 119/60 12/14/24 07:35 Pulse Ox 92 12/14/24 07:35 O2 Del Method Nasal Cannula 12/14/24 07:35 O2 Flow Rate 2.0 12/14/24 07:35 BMI result Body Mass Index 41.0 Const: General: tired appearing Nutritional Appearance: well nourished Orientation/consciousness: patient oriented x3 Eyes: General: appearance normal, both eyes and all related structures Resp: Effort & Inspection: normal respiratory effort GI: Other: Distended, tender in the epigastrium, periumbilical, right upper and left upper quadrants. No peritoneal signs. Skin: Other: Warm and dry Neuro: General: patient oriented x3 Objective Data Active Medications Atorvastatin Calcium (Atorvastatin Calcium 80 Mg Tablet) 80 mg PO BEDTIME [facility] Last Admin: 12/13/24 21:18 Dose: 80 mg Documented By: ALISSON Dextrose (Dextrose 50 % 25 Gm/50 Ml Syringe) 25 gm IVPUSH Q30M PRN PRN Reason: BG < 70 Docusate Sodium (Docusate Sodium 100 Mg Capsule) 100 mg PO BID PRN PRN Reason: Constipation Last Admin: 12/12/24 03:33 Dose: 100 mg Documented By: LATA Enoxaparin Sodium (Enoxaparin Sodium 40 Mg/0.4 Ml Syringe) 40 mg SUBCUT Q24H [facility] Last Admin: 12/14/24 09:55 Dose: 40 mg Documented By: NERIS Famotidine (Famotidine/Pf 20 Mg/2 Ml Vial) 20 mg IVPUSH BID [facility] Last Admin: 12/13/24 21:18 Dose: 20 mg Documented By: ALISSON Gemfibrozil (Gemfibrozil 600 Mg Tablet) 600 mg PO BIDAC [facility] Last Admin: 12/14/24 09:56 Dose: 600 mg Documented By: NERIS Hydromorphone HCl (Hydromorphone Hcl 2 Mg/Ml Vial) 1.5 mg IVPUSH Q2H PRN; Protocol PRN Reason: Pain, Severe (Pain Scale 7-10) Last Admin: 12/14/24 09:42 Dose: 1.5 mg Documented By: NERIS Lactated Ringer's (Lr) 1,000 mls @ 125 mls/hr IVCONT .Q8H [facility] Last Infusion: 12/14/24 05:13 Dose: 125 mls/hr Documented By: ALISSON Piperacillin Sod/Tazobactam (Sod 3.375 gm/ Sodium Chloride) 50 mls @ 100 mls/hr IV Q6H [facility] Last Admin: 12/14/24 09:45 Dose: 100 mls/hr Documented By: NERIS Insulin Glargine (Insulin Glargine,Hum.Rec.Anlog 100 Unit/Ml 10 Ml Vial) 15 unit SUBCUT BID [facility] Insulin Human Lispro (Insulin Lispro 100 Unit/Ml 3 Ml Vial) 0 unit SUBCUT QIDACHS [facility]; Protocol Last Admin: 12/14/24 08:02 Dose: Not Given Documented By: NERIS Non-Admin Reason: Physician Held Med Nitroglycerin (Nitroglycerin 0.4 Mg Tab.Subl) 0.4 mg SUBLINGUAL Q5MX3 PRN PRN Reason: Chest Pain Last Admin: 12/12/24 23:46 Dose: 0.4 mg Documented By: CARMEN Omeprazole (Omeprazole 20 Mg Capsule.Dr) 20 mg PO DAILY@0630 [facility] Last Admin: 12/14/24 06:12 Dose: 20 mg Documented By: ALISSON Ondansetron HCl (Ondansetron Hcl 4 Mg/2 Ml Vial) 4 mg IVPUSH Q6H PRN PRN Reason: Nausea and Vomiting Last Admin: 12/12/24 17:32 Dose: 4 mg Documented By: XIOMARA Polyethylene Glycol (Polyethylene Glycol 3350 17 Gm Powd.Pack) 17 gm PO DAILY PRN PRN Reason: Constipation Last Admin: 12/12/24 20:42 Dose: 17 gm Documented By: CARMEN Sodium Chloride (0.9 % Sodium Chloride Flush 3 Ml Syringe) 3 ml IVFLUSH QSHIFT [facility] Last Admin: 12/14/24 09:56 Dose: Not Given Documented By: NERIS Non-Admin Reason: IV Running Labs 12/14/24 07:26 12/14/24 07:25 Labs: Laboratory Results - last 24 hr 12/13/24 12/13/24 12/13/24 11:13 16:02 20:30 MCV MCH MCHC RDW Plt Count MPV Absolute Nucleated RBC Nucleated RBC % (auto) PT INR Anion Gap Estim Creat Clear Calc Estimated GFR POC Glucose 197 H 171 H 165 H Random Glucose Calcium Magnesium Total Bilirubin Direct Bilirubin AST ALT Alkaline Phosphatase Total Protein Albumin Lipase 12/14/24 12/14/24 12/14/24 07:25 07:26 07:38 MCV 80.3 MCH 25.5 L MCHC 31.8 RDW 14.9 Plt Count 328 MPV 9.2 L Absolute Nucleated RBC 0.040 H Nucleated RBC % (auto) 0.3 H PT 15.7 H D INR 1.4 H Anion Gap 13 Estim Creat Clear Calc 209.0 Estimated GFR > 60 POC Glucose 166 H Random Glucose 158 H Calcium 8.1 L Magnesium 1.9 Total Bilirubin 1.2 H Direct Bilirubin 0.7 H AST 44 H ALT 14 Alkaline Phosphatase 128 H Total Protein 6.1 L Albumin 2.7 L Lipase 196 H Microbiology Microbiology Results: Microbiology 12/09/24 00:16 Blood Culture - Final Blood - Venous No growth after 5 days. 12/08/24 18:00 Blood Culture - Final Blood - Venous No growth after 5 days. 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 of note had stroke alert 12/08/24 for facial parasthesias Acute pancreatitis Due to hypertriglyceridemia Started on statin and gemfibrozil, triglycerides have decreased from 5000 to 281 worsening pain, repeat ct abd with phlegmon and free fluid, started zosyn, gi and surgery following worsening wbc, will check another ct DKA Resolved, continue basal bolus insulin Will need insulin on discharge Episode of paresthesias with twitching Neuro appreciated, unlikely CVA/TIA, monitor for now Metabolic syndrome Weight loss recommended Glomus jugulare tumor Continue follow up outpatient with Dr. Iglesias DVT prophylaxis with Lovenox Full Code reason for continued hospitalization: Not tolerating p.o. Quality Stroke Does the patient have a stroke diagnosis?: No VTE Prior VTE?: No VTE Risk Level:: Medical - moderate - high VTE Device Contraindication: N/A - Device Ordered VTE Drug Contraindication: N/A - Med Ordered
[2024-12-14] MEDS: Insulin Glargine,Hum.rec.anlog 100 UNIT/ML 10 ML VIAL 15 UNIT SUBCUT (10:29)
[2024-12-14] MEDS: Famotidine/PF 20 MG/2 ML VIAL IVPUSH ×2 (10:31→20:04)
[2024-12-14 11:35] LABS: Glucose, Whole Blood 159 mg/dL (60-115)
[2024-12-14] MEDS: iohexoL 350 MG/ML 100 ML INFUS..BTL IV (11:48)
[2024-12-14] MEDS: Lactated Ringers 1,000 ML 125 ML IVCONT ×2 (14:11→23:35)
[2024-12-14 15:30] VITALS: BP 135/71; PULSE 94; RESP 18; TEMP 36.8; O2SAT 93
[2024-12-14] MEDS: HYDROmorphone HCl 2 MG/ML VIAL IVPUSH ×4 (16:02→23:33)
[2024-12-14 16:40] LABS: Glucose, Whole Blood 144 mg/dL (60-115)
[2024-12-14 20:00] VITALS: BP 137/65; PULSE 85; RESP 17; TEMP 36.2; O2SAT 96
[2024-12-14] MEDS: Atorvastatin Calcium 80 MG TABLET PO (20:04)
[2024-12-14 20:14] LABS: Glucose, Whole Blood 137 mg/dL (60-115)
[2024-12-14] MEDS: polyethylene glycoL 3350 17 GM POWD.PACK PO (20:22)
[2024-12-15 03:03] VITALS: BP 146/70; PULSE 98; RESP 19; TEMP 37.4; O2SAT 93
[2024-12-15] MEDS: HYDROmorphone HCl 2 MG/ML VIAL IVPUSH ×8 (03:03→23:11)
[2024-12-15 03:17] VITALS: TEMP 37.9
[2024-12-15] MEDS: Piperacillin Sodium/Tazobactam 3.375 GM in 0.9 % Sodium Chloride 50 ML IV ×4 (04:14→22:56)
[2024-12-15] MEDS: Omeprazole 20 MG CAPSULE.DR PO (05:43)
[2024-12-15] MEDS: Docusate Sodium 100 MG CAPSULE PO ×2 (05:43→23:11)
[2024-12-15 06:58] LABS: Hematocrit 32.9 % (42.0-52.0); Hemoglobin 10.5 g/dl (14.0-18.0); Mean Corpuscular HGB Conc 31.9 g/dl (31.0-36.0); Mean Corpuscular Hemoglobin 25.7 pg (27.0-33.0); Mean Corpuscular Volume 80.4 fL (80.0-98.0); Mean Platelet Volume 9.1 fL (9.4-12.4); NRBC Pct Auto 0.2 /100WBC (0.0-0.2); Platelet Count 350 X10*3/uL (160-400); Red Blood Count 4.09 X10*6/uL (4.60-5.80); Red Cell Distribution Width 14.8 % (11.0-16.0); White Blood Count 14.5 X10*3/uL (4.8-10.8)
[2024-12-15 06:59] LABS: Alanine Aminotransferase 15 U/L (0-40); Albumin Level 2.8 g/dL (3.5-5.0); Alkaline Phosphatase 167 U/L (39-117); Anion Gap 11 (12-20); Aspartate Amino Transferase 57 U/L (5-37); Bilirubin Direct 0.9 mg/dL (0.0-0.5); Bilirubin Total 1.5 mg/dL (0.0-1.0); Blood Urea Nitrogen 7 mg/dL (9-16); Calcium 8.4 mg/dL (8.4-10.2); Carbon Dioxide 26 mmol/L (22-29); Chloride 101 mmol/L (96-108); Estimated Glomerular Filt Rate > 60; Glucose Random 155 mg/dL (60-115); Magnesium 1.9 mg/dL (1.6-2.6); Potassium 4.1 mmol/L (3.3-5.1); Sodium 134 mmol/L (135-145); Total Protein 6.5 g/dL (6.5-8.0)
[2024-12-15 07:53] VITALS: BP 126/60; PULSE 88; RESP 18; TEMP 36.5; O2SAT 92
[2024-12-15 08:00] LABS: Glucose, Whole Blood 150 mg/dL (60-115)
[2024-12-15] MEDS: Lactated Ringers 1,000 ML 125 ML IVCONT ×2 (08:31→17:57)
[2024-12-15] MEDS: Famotidine/PF 20 MG/2 ML VIAL IVPUSH ×2 (08:31→20:21)
[2024-12-15] MEDS: gemfibroziL 600 MG TABLET PO ×2 (08:32→15:41)
[2024-12-15] MEDS: Insulin Glargine,Hum.rec.anlog 100 UNIT/ML 10 ML VIAL 15 UNIT SUBCUT ×2 (08:32→20:48)
[2024-12-15] MEDS: Enoxaparin Sodium 40 MG/0.4 ML SYRINGE SUBCUT (08:33)
--- NOTE | 2024-12-15 08:49 | HO.PM.IMPN ---
Subjective Subjective Date of Service: 12/15/24 Interval History: worsening pain Physical Exam Vital Signs: Vital Signs: Last Vital Signs Temp 97.7 F 12/15/24 07:53 Pulse 88 12/15/24 07:53 Resp 18 12/15/24 07:53 BP 126/60 12/15/24 07:53 Pulse Ox 92 12/15/24 07:53 O2 Del Method Room Air 12/15/24 07:53 O2 Flow Rate 2 12/14/24 20:00 BMI result Body Mass Index 41.0 Const: General: tired appearing Nutritional Appearance: well nourished Orientation/consciousness: patient oriented x3 Eyes: General: appearance normal, both eyes and all related structures Resp: Effort & Inspection: normal respiratory effort GI: Other: Distended, tender in the epigastrium, periumbilical, right upper and left upper quadrants. No peritoneal signs. Skin: Other: Warm and dry Neuro: General: patient oriented x3 Objective Data Active Medications Atorvastatin Calcium (Atorvastatin Calcium 80 Mg Tablet) 80 mg PO BEDTIME [facility] [place] Last Admin: 12/14/24 20:04 Dose: 80 mg Documented By: CARISSA Dextrose (Dextrose 50 % 25 Gm/50 Ml Syringe) 25 gm IVPUSH Q30M PRN PRN Reason: BG < 70 Docusate Sodium (Docusate Sodium 100 Mg Capsule) 100 mg PO BID PRN PRN Reason: Constipation Last Admin: 12/15/24 05:43 Dose: 100 mg Documented By: CARISSA Enoxaparin Sodium (Enoxaparin Sodium 40 Mg/0.4 Ml Syringe) 40 mg SUBCUT Q24H [facility] [place] Last Admin: 12/15/24 08:33 Dose: 40 mg Documented By: NERIS Famotidine (Famotidine/Pf 20 Mg/2 Ml Vial) 20 mg IVPUSH BID [facility] [place] Last Admin: 12/15/24 08:31 Dose: 20 mg Documented By: NERIS Gemfibrozil (Gemfibrozil 600 Mg Tablet) 600 mg PO BIDAC [facility] [place] Last Admin: 12/15/24 08:32 Dose: 600 mg Documented By: NERIS Hydromorphone HCl (Hydromorphone Hcl 2 Mg/Ml Vial) 2 mg IVPUSH Q2H PRN; Protocol PRN Reason: Pain, Severe (Pain Scale 7-10) Last Admin: 12/15/24 08:29 Dose: 2 mg Documented By: NERIS Lactated Ringer's (Lr) 1,000 mls @ 125 mls/hr IVCONT .Q8H [facility] [place] Last Admin: 12/15/24 08:31 Dose: 125 mls/hr Documented By: NERIS Piperacillin Sod/Tazobactam (Sod 3.375 gm/ Sodium Chloride) 50 mls @ 100 mls/hr IV Q6H [facility] [place] Last Infusion: 12/15/24 05:19 Dose: Infused Documented By: CARISSA Insulin Glargine (Insulin Glargine,Hum.Rec.Anlog 100 Unit/Ml 10 Ml Vial) 15 unit SUBCUT BID [facility] [place] Last Admin: 12/15/24 08:32 Dose: 15 unit Documented By: NERIS Insulin Human Lispro (Insulin Lispro 100 Unit/Ml 3 Ml Vial) 0 unit SUBCUT QIDACHS [facility] [place]; Protocol Last Admin: 12/15/24 08:19 Dose: Not Given Documented By: NERIS Non-Admin Reason: No Insulin Coverage Nitroglycerin (Nitroglycerin 0.4 Mg Tab.Subl) 0.4 mg SUBLINGUAL Q5MX3 PRN PRN Reason: Chest Pain Last Admin: 12/12/24 23:46 Dose: 0.4 mg Documented By: CARMEN Omeprazole (Omeprazole 20 Mg Capsule.Dr) 20 mg PO DAILY@0630 [facility] [place] Last Admin: 12/15/24 05:43 Dose: 20 mg Documented By: CARISSA Ondansetron HCl (Ondansetron Hcl 4 Mg/2 Ml Vial) 4 mg IVPUSH Q6H PRN PRN Reason: Nausea and Vomiting Last Admin: 12/12/24 17:32 Dose: 4 mg Documented By: XIOMARA Polyethylene Glycol (Polyethylene Glycol 3350 17 Gm Powd.Pack) 17 gm PO DAILY PRN PRN Reason: Constipation Last Admin: 12/14/24 20:22 Dose: 17 gm Documented By: CARISSA Sodium Chloride (0.9 % Sodium Chloride Flush 3 Ml Syringe) 3 ml IVFLUSH QSHIFT [facility] [place] Last Admin: 12/15/24 07:37 Dose: Not Given Documented By: NERIS Non-Admin Reason: IV Running Labs 12/15/24 06:08 12/15/24 06:08 Labs: Laboratory Results - last 24 hr 12/14/24 12/14/24 12/14/24 11:30 16:35 20:09 MCV MCH MCHC RDW Plt Count MPV Absolute Nucleated RBC Nucleated RBC % (auto) Anion Gap Estim Creat Clear Calc Estimated GFR POC Glucose 159 H 144 H 137 H Random Glucose Calcium Magnesium Total Bilirubin Direct Bilirubin AST ALT Alkaline Phosphatase Total Protein Albumin 12/15/24 12/15/24 06:08 07:55 MCV 80.4 MCH 25.7 L MCHC 31.9 RDW 14.8 Plt Count 350 MPV 9.1 L Absolute Nucleated RBC 0.030 H Nucleated RBC % (auto) 0.2 Anion Gap 11 L Estim Creat Clear Calc 209.0 Estimated GFR > 60 POC Glucose 150 H Random Glucose 155 H Calcium 8.4 Magnesium 1.9 Total Bilirubin 1.5 H Direct Bilirubin 0.9 H AST 57 H ALT 15 Alkaline Phosphatase 167 H Total Protein 6.5 Albumin 2.8 L Assessment and Plan (1) Hypertriglyceridemia: Status: Acute Plan 29M PMH metabolic syndrome with morbid obesity, uncontrolled DM, HTN, hypertriglyceridemia with history of pancreatitis, NAFLD, 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 of note had stroke alert 12/08/24 for facial parasthesias Acute pancreatitis Due to hypertriglyceridemia Started on statin and gemfibrozil, triglycerides have decreased from 5000 to 281 worsening pain, repeat ct abd with phlegmon and free fluid, started zosyn, gi and surgery following npo, ivf, plan for ppn DKA Resolved, continue basal bolus insulin Episode of paresthesias with twitching Neuro appreciated, unlikely CVA/TIA, monitor for now Metabolic syndrome Weight loss recommended Glomus jugulare tumor Continue follow up outpatient with Dr. Iglesias DVT prophylaxis with Lovenox Full Code reason for continued hospitalization: Not tolerating p.o. Quality Stroke Does the patient have a stroke diagnosis?: No VTE Prior VTE?: No VTE Risk Level:: Medical - moderate - high VTE Device Contraindication: N/A - Device Ordered VTE Drug Contraindication: N/A - Med Ordered
--- NOTE | 2024-12-15 09:31 | MHC.CLN ---
consult for ppn: reviewed labs discussed with pharmacy recommend ppn at 70ml/hr to provide 857kcals, 168g dextrose, 71g protein replete lytes as needed full nutrition assessment to follow
[2024-12-15 09:50] LABS: Phosphorus 3.6 mg/dL (2.7-4.5)
--- NOTE | 2024-12-15 10:18 | PM.PNGS ---
Subjective Subjective Date of Service: 12/15/24 Interval history: Patient with continued abdominal pain essentially unchanged. Physical Exam Vital Signs: Vital Signs: Last Vital Signs Temp 97.7 F 12/15/24 07:53 Pulse 88 12/15/24 07:53 Resp 18 12/15/24 07:53 BP 126/60 12/15/24 07:53 Pulse Ox 92 12/15/24 07:53 O2 Del Method Room Air 12/15/24 07:53 O2 Flow Rate 2 12/14/24 20:00 BMI result Body Mass Index 41.0 Const: General: tired appearing Nutritional Appearance: well nourished Orientation/consciousness: patient oriented x3 Resp: Effort & Inspection: normal respiratory effort GI: Other: Distended, tender in the epigastrium, periumbilical, right upper and left upper quadrants. No peritoneal signs. Skin: Other: Warm and dry Neuro: General: patient oriented x3 Objective Data Active Medications Atorvastatin Calcium (Atorvastatin Calcium 80 Mg Tablet) 80 mg PO BEDTIME [facility] Last Admin: 12/14/24 20:04 Dose: 80 mg Documented By: CARISSA Dextrose (Dextrose 50 % 25 Gm/50 Ml Syringe) 25 gm IVPUSH Q30M PRN PRN Reason: BG < 70 Docusate Sodium (Docusate Sodium 100 Mg Capsule) 100 mg PO BID PRN PRN Reason: Constipation Last Admin: 12/15/24 05:43 Dose: 100 mg Documented By: CARISSA Enoxaparin Sodium (Enoxaparin Sodium 40 Mg/0.4 Ml Syringe) 40 mg SUBCUT Q24H [facility] Last Admin: 12/15/24 08:33 Dose: 40 mg Documented By: NERIS Famotidine (Famotidine/Pf 20 Mg/2 Ml Vial) 20 mg IVPUSH BID [facility] Last Admin: 12/15/24 08:31 Dose: 20 mg Documented By: NERIS Gemfibrozil (Gemfibrozil 600 Mg Tablet) 600 mg PO BIDAC [facility] Last Admin: 12/15/24 08:32 Dose: 600 mg Documented By: NERIS Hydromorphone HCl (Hydromorphone Hcl 2 Mg/Ml Vial) 2 mg IVPUSH Q2H PRN; Protocol PRN Reason: Pain, Severe (Pain Scale 7-10) Last Admin: 12/15/24 08:29 Dose: 2 mg Documented By: NERIS Lactated Ringer's (Lr) 1,000 mls @ 125 mls/hr IVCONT .Q8H [facility] Last Admin: 12/15/24 08:31 Dose: 125 mls/hr Documented By: NERIS Piperacillin Sod/Tazobactam (Sod 3.375 gm/ Sodium Chloride) 50 mls @ 100 mls/hr IV Q6H [facility] Last Admin: 12/15/24 09:58 Dose: 100 mls/hr Documented By: NERIS Insulin Glargine (Insulin Glargine,Hum.Rec.Anlog 100 Unit/Ml 10 Ml Vial) 15 unit SUBCUT BID [facility] Last Admin: 12/15/24 08:32 Dose: 15 unit Documented By: NERIS Insulin Human Lispro (Insulin Lispro 100 Unit/Ml 3 Ml Vial) 0 unit SUBCUT QIDACHS [facility]; Protocol Last Admin: 12/15/24 08:19 Dose: Not Given Documented By: NERIS Non-Admin Reason: No Insulin Coverage Nitroglycerin (Nitroglycerin 0.4 Mg Tab.Subl) 0.4 mg SUBLINGUAL Q5MX3 PRN PRN Reason: Chest Pain Last Admin: 12/12/24 23:46 Dose: 0.4 mg Documented By: CARMEN Omeprazole (Omeprazole 20 Mg Capsule.Dr) 20 mg PO DAILY@0630 [facility] Last Admin: 12/15/24 05:43 Dose: 20 mg Documented By: CRAISSA Ondansetron HCl (Ondansetron Hcl 4 Mg/2 Ml Vial) 4 mg IVPUSH Q6H PRN PRN Reason: Nausea and Vomiting Last Admin: 12/12/24 17:32 Dose: 4 mg Documented By: XIOMARA Pharmacy Consult (Consult Rx Parenteral Nutrition Ordering) 1 each MISCELLANE DAILY PRN PRN Reason: Consult order Polyethylene Glycol (Polyethylene Glycol 3350 17 Gm Powd.Pack) 17 gm PO DAILY PRN PRN Reason: Constipation Last Admin: 12/14/24 20:22 Dose: 17 gm Documented By: CARISSA Sodium Chloride (0.9 % Sodium Chloride Flush 3 Ml Syringe) 3 ml IVFLUSH QSHIFT [facility] Last Admin: 12/15/24 07:37 Dose: Not Given Documented By: NERIS Non-Admin Reason: IV Running Labs 12/15/24 06:08 12/15/24 06:08 Labs: Laboratory Results - last 24 hr 12/14/24 12/14/24 12/14/24 11:30 16:35 20:09 MCV MCH MCHC RDW Plt Count MPV Absolute Nucleated RBC Nucleated RBC % (auto) Hold Purple Top Anion Gap Estim Creat Clear Calc Estimated GFR POC Glucose 159 H 144 H 137 H Random Glucose Calcium Phosphorus Magnesium Total Bilirubin Direct Bilirubin AST ALT Alkaline Phosphatase Total Protein Albumin Hold Yellow Top 12/15/24 12/15/24 12/15/24 06:08 07:55 09:30 MCV 80.4 MCH 25.7 L MCHC 31.9 RDW 14.8 Plt Count 350 MPV 9.1 L Absolute Nucleated RBC 0.030 H Nucleated RBC % (auto) 0.2 Hold Purple Top SEE NOTE Anion Gap 11 L Estim Creat Clear Calc 209.0 Estimated GFR > 60 POC Glucose 150 H Random Glucose 155 H Calcium 8.4 Phosphorus 3.6 Magnesium 1.9 Total Bilirubin 1.5 H Direct Bilirubin 0.9 H AST 57 H ALT 15 Alkaline Phosphatase 167 H Total Protein 6.5 Albumin 2.8 L Hold Yellow Top See Note Procedures Date of Service Date of Service: 12/15/24 Progress Note: A&P Assessment and plan (1) Acute pancreatitis: Status: Acute Plan 29-year-old male patient with severe pancreatitis with marked inflammation probably related to elevated triglycerides. Repeat CT abdomen and pelvis reviewed. Continued phlegmon and inflammation but no evidence of an organized fluid collection/abscess appreciated. No evidence of pancreatic necrosis at this time. Continue supportive care, NPO, consider parenteral nutrition Time Spent With Patient Time: Total time managing care of this patient today ____ minutes. Quality Stroke Does the patient have a stroke diagnosis?: No VTE Prior VTE?: No VTE Risk Level:: Medical - moderate - high VTE Device Contraindication: N/A - Device Ordered VTE Drug Contraindication: N/A - Med Ordered
[2024-12-15 11:31] LABS: Glucose, Whole Blood 151 mg/dL (60-115)
--- NOTE | 2024-12-15 12:58 | PC.NURSE ---
Ambulated pt today. Very very heavy 2 person assist - pt refusing walker and not safe to walk until he understands he needs to participate more and not to put all his weight on the two assistants.
[2024-12-15 13:20] VITALS: BP 140/70; PULSE 97; RESP 22; O2SAT 94
[2024-12-15] MEDS: 0.9 % Sodium Chloride Flush 3 ML SYRINGE IVFLUSH ×2 (15:32→20:23)
[2024-12-15 15:36] VITALS: BP 126/71; PULSE 96; RESP 16; TEMP 36.2; O2SAT 92
[2024-12-15 16:41] LABS: Glucose, Whole Blood 147 mg/dL (60-115)
[2024-12-15 20:00] VITALS: BP 151/70; PULSE 98; RESP 18; O2SAT 98
[2024-12-15 20:10] LABS: Glucose, Whole Blood 161 mg/dL (60-115)
[2024-12-15] MEDS: Parenteral Nutrition 1,680 ML 70 ML IV (20:21)
[2024-12-15] MEDS: Atorvastatin Calcium 80 MG TABLET PO (20:22)
[2024-12-15] MEDS: Insulin Lispro 100 UNIT/ML 3 ML VIAL SUBCUT (20:49)
[2024-12-16] VITALS (7 sets, daily range): BP systolic 116–142; BP diastolic 65–89; PULSE 86–97; RESP 16–20; TEMP 36.1–38.9; O2SAT 93–95; BMI 40.8; BMI 41.0
[2024-12-16] MEDS: HYDROmorphone HCl 2 MG/ML VIAL IVPUSH ×8 (02:21→22:25)
[2024-12-16] MEDS: Piperacillin Sodium/Tazobactam 3.375 GM in 0.9 % Sodium Chloride 50 ML IV ×4 (05:00→23:09)
[2024-12-16] MEDS: Acetaminophen 325 MG TABLET 650 MG PO (05:57)
[2024-12-16] MEDS: Omeprazole 20 MG CAPSULE.DR PO (05:57)
[2024-12-16] MEDS: gemfibroziL 600 MG TABLET PO ×2 (06:38→16:22)
[2024-12-16 07:46] LABS: Glucose, Whole Blood 176 mg/dL (60-115)
[2024-12-16] MEDS: 0.9 % Sodium Chloride Flush 3 ML SYRINGE IVFLUSH ×2 (08:20→16:22)
[2024-12-16] MEDS: Famotidine/PF 20 MG/2 ML VIAL IVPUSH ×2 (08:21→19:39)
[2024-12-16] MEDS: Insulin Glargine,Hum.rec.anlog 100 UNIT/ML 10 ML VIAL 15 UNIT SUBCUT ×2 (08:21→22:12)
[2024-12-16] MEDS: Insulin Lispro 100 UNIT/ML 3 ML VIAL SUBCUT ×4 (08:22→22:11)
[2024-12-16] MEDS: Enoxaparin Sodium 40 MG/0.4 ML SYRINGE SUBCUT (08:23)
--- NOTE | 2024-12-16 08:53 | P.PNIM_ITS ---
Subjective Subjective Date of Service: 12/16/24 Interval History: fever overnight Physical Exam 2 Vital Signs: Vital Signs: Last Vital Signs Temp 97.0 F 12/16/24 07:23 Pulse 88 12/16/24 07:23 Resp 16 12/16/24 07:23 BP 116/65 12/16/24 07:23 Pulse Ox 95 12/16/24 07:23 O2 Del Method Nasal Cannula 12/16/24 07:23 O2 Flow Rate 2.0 12/16/24 07:23 BMI result Body Mass Index 41.0 Const: General: tired appearing Nutritional Appearance: well nourished O rientation/consciousness: patient oriented x3 Resp: Effort & Inspection: normal respiratory effort GI: Other: Distended, tender in the epigastrium, periumbilical, right upper and left upper quadrants. No peritoneal signs. Skin: Other: Warm and dry Neuro: General: patient oriented x3 Objective Data Active Medications Atorvastatin Calcium (Atorvastatin Calcium 80 Mg Tablet) 80 mg PO BEDTIME [facility] Last Admin: 12/15/24 20:22 Dose: 80 mg Documented By: AIDEN Dextrose (Dextrose 50 % 25 Gm/50 Ml Syringe) 25 gm IVPUSH Q30M PRN PRN Reason: BG < 70 Docusate Sodium (Docusate Sodium 100 Mg Capsule) 100 mg PO BID PRN PRN Reason: Constipation Last Admin: 12/15/24 23:11 Dose: 100 mg Documented By: AIDEN Enoxaparin Sodium (Enoxaparin Sodium 40 Mg/0.4 Ml Syringe) 40 mg SUBCUT Q24H [facility] Last Admin: 12/16/24 08:23 Dose: 40 mg Documented By: JENNA Famotidine (Famotidine/Pf 20 Mg/2 Ml Vial) 20 mg IVPUSH BID [facility] Last Admin: 12/16/24 08:21 Dose: 20 mg Documented By: JENNA Gemfibrozil (Gemfibrozil 600 Mg Tablet) 600 mg PO BIDAC [facility] Last Admin: 12/16/24 06:38 Dose: 600 mg Documented By: AIDEN Hydromorphone HCl (Hydromorphone Hcl 2 Mg/Ml Vial) 2 mg IVPUSH Q2H PRN; Protocol PRN Reason: Pain, Severe (Pain Scale 7-10) Last Admin: 12/16/24 08:24 Dose: 2 mg Documented By: JENNA Piperacillin Sod/Tazobactam (Sod 3.375 gm/ Sodium Chloride) 50 mls @ 100 mls/hr IV Q6H [facility] Last Infusion: 12/16/24 05:49 Dose: Infused Documented By: AIDEN Nutrition (Parenteral) (Parenteral Nutrition) 1,680 mls @ 70 mls/hr IV .Q24H [facility]; Protocol Stop: 12/16/24 20:59 Last Infusion: 12/15/24 23:00 Dose: 70 mls/hr Documented By: AIDEN Insulin Glargine (Insulin Glargine,Hum.Rec.Anlog 100 Unit/Ml 10 Ml Vial) 15 unit SUBCUT BID [facility] Last Admin: 12/16/24 08:21 Dose: 15 unit Documented By: JENNA Insulin Human Lispro (Insulin Lispro 100 Unit/Ml 3 Ml Vial) 0 unit SUBCUT QIDACHS [facility]; Protocol Last Admin: 12/16/24 08:22 Dose: 4 unit Documented By: JENNA Nitroglycerin (Nitroglycerin 0.4 Mg Tab.Subl) 0.4 mg SUBLINGUAL Q5MX3 PRN PRN Reason: Chest Pain Last Admin: 12/12/24 23:46 Dose: 0.4 mg Documented By: CARMEN Omeprazole (Omeprazole 20 Mg Capsule.Dr) 20 mg PO DAILY@0630 [facility] Last Admin: 12/16/24 05:57 Dose: 20 mg Documented By: AIDEN Ondansetron HCl (Ondansetron Hcl 4 Mg/2 Ml Vial) 4 mg IVPUSH Q6H PRN PRN Reason: Nausea and Vomiting Last Admin: 12/12/24 17:32 Dose: 4 mg Documented By: XIOMARA Pharmacy Consult (Consult Rx Parenteral Nutrition Ordering) 1 each MISCELLANE DAILY PRN PRN Reason: Consult order Polyethylene Glycol (Polyethylene Glycol 3350 17 Gm Powd.Pack) 17 gm PO DAILY PRN PRN Reason: Constipation Last Admin: 12/14/24 20:22 Dose: 17 gm Documented By: CARISSA Sodium Chloride (0.9 % Sodium Chloride Flush 3 Ml Syringe) 3 ml IVFLUSH QSHIFT [facility] Last Admin: 12/16/24 08:20 Dose: 3 ml Documented By: JENNA Labs 12/15/24 06:08 12/15/24 06:08 Labs: Laboratory Results - last 24 hr 12/15/24 12/15/24 12/15/24 09:30 11:26 16:32 Hold Purple Top SEE NOTE POC Glucose 151 H 147 H Phosphorus 3.6 Hold Yellow Top See Note 12/15/24 12/16/24 20:06 07:31 Hold Purple Top POC Glucose 161 H 176 H Phosphorus Hold Yellow Top Assessment and Plan (1) Hypertriglyceridemia: Status: Acute Plan 29M PMH metabolic syndrome with morbid obesity, uncontrolled DM, HTN, hypertriglyceridemia with history of pancreatitis, NAFLD, 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 of note had stroke alert 12/08/24 for facial parasthesias SIRS due to Acute pancreatitis Due to hypertriglyceridemia Started on statin and gemfibrozil, triglycerides have decreased from 5000 to 281 worsening pain, repeat ct abd with phlegmon and free fluid, started zosyn, gi and surgery following npo, ivf, ppn DKA Resolved, continue basal bolus insulin Episode of paresthesias with twitching Neuro appreciated, unlikely CVA/TIA, Metabolic syndrome Weight loss recommended Glomus jugulare tumor Continue follow up outpatient with Dr. Iglesias DVT prophylaxis with Lovenox Full Code reason for continued hospitalization: Not tolerating p.o. Quality Stroke Does the patient have a stroke diagnosis?: No VTE Prior VTE?: No VTE Risk Level:: Medical - moderate - high VTE Device Contraindication: N/A - Device Ordered VTE Drug Contraindication: N/A - Med Ordered
[2024-12-16 09:13] LABS: Hematocrit 30.1 % (42.0-52.0); Hemoglobin 9.8 g/dl (14.0-18.0); Mean Corpuscular HGB Conc 32.6 g/dl (31.0-36.0); Mean Corpuscular Hemoglobin 26.2 pg (27.0-33.0); Mean Corpuscular Volume 80.5 fL (80.0-98.0); Mean Platelet Volume 8.9 fL (9.4-12.4); NRBC Pct Auto 0.1 /100WBC (0.0-0.2); Platelet Count 351 X10*3/uL (160-400); Red Blood Count 3.74 X10*6/uL (4.60-5.80); White Blood Count 13.7 X10*3/uL (4.8-10.8)
[2024-12-16 09:49] LABS: Alanine Aminotransferase 17 U/L (0-40); Albumin Level 2.8 g/dL (3.5-5.0); Alkaline Phosphatase 155 U/L (39-117); Anion Gap 12 (12-20); Aspartate Amino Transferase 69 U/L (5-37); Bilirubin Direct 0.7 mg/dL (0.0-0.5); Bilirubin Total 1.2 mg/dL (0.0-1.0); Blood Urea Nitrogen 7 mg/dL (9-16); Calcium 8.3 mg/dL (8.4-10.2); Carbon Dioxide 27 mmol/L (22-29); Chloride 100 mmol/L (96-108); Cholesterol 147 mg/dL (<200); Estimated Glomerular Filt Rate > 60; Glucose Random 190 mg/dL (60-115); HDL Cholesterol 9 mg/dL (>40); LDL Cholesterol Calculated 82 mg/dL (<100); Magnesium 1.9 mg/dL (1.6-2.6); Phosphorus 3.3 mg/dL (2.7-4.5); Potassium 3.9 mmol/L (3.3-5.1); Sodium 135 mmol/L (135-145); Total Protein 6.6 g/dL (6.5-8.0); Triglycerides 280 mg/dL (<150)
[2024-12-16 09:54] LABS: Lactic Acid 0.8 mmol/L (0.5-2.0)
--- NOTE | 2024-12-16 10:24 | MHC.CM.PN ---
EMR REVIEWED, PT W/PANCREATITIS, PT FEBRILE OVER NOC AND NOT TOLERATING PO DIET, NO PLAN FOR DC AT THIS TIME, CM WILL CONT TO FOLLOW DC NEEDS.
--- NOTE | 2024-12-16 11:16 | P.PNGS_ITS ---
Subjective Subjective Date of Service: 12/16/24 Interval history: Patient continues to have significant abdominal pain radiating towards his back. Patient febrile this morning temperature 102. Denies nausea, vomiting. He states he feels a little more comfortable today and is now able to sit up on his own in the bed. Remains NPO Physical Exam 2 Vital Signs: Vital Signs: Last Vital Signs Temp 97.0 F 12/16/24 07:23 Pulse 88 12/16/24 07:23 Resp 16 12/16/24 07:23 BP 116/65 12/16/24 07:23 Pulse Ox 95 12/16/24 07:23 O2 Del Method Nasal Cannula 12/16/24 07:23 O2 Flow Rate 2.0 12/16/24 07:23 BMI result Body Mass Index 41.0 Const: General: no acute distress, alert and awake; No comfortable O rientation/consciousness: patient oriented x3 Resp: Effort & Inspection: normal respiratory effort and able to speak in complete sentences GI: Inspection: Yes distended Palpation (GI): Soft to palpation, not firm, Tenderness to palpation present (GI), no guarding (Throughout, focused in the upper abdomen) and not rigid Neuro: General: patient oriented x3 Objective Data Active Medications Atorvastatin Calcium (Atorvastatin Calcium 80 Mg Tablet) 80 mg PO BEDTIME [facility] Last Admin: 12/15/24 20:22 Dose: 80 mg Documented By: AIDEN Dextrose (Dextrose 50 % 25 Gm/50 Ml Syringe) 25 gm IVPUSH Q30M PRN PRN Reason: BG < 70 Docusate Sodium (Docusate Sodium 100 Mg Capsule) 100 mg PO BID PRN PRN Reason: Constipation Last Admin: 12/15/24 23:11 Dose: 100 mg Documented By: AIDEN Enoxaparin Sodium (Enoxaparin Sodium 40 Mg/0.4 Ml Syringe) 40 mg SUBCUT Q24H [facility] Last Admin: 12/16/24 08:23 Dose: 40 mg Documented By: JENNA Famotidine (Famotidine/Pf 20 Mg/2 Ml Vial) 20 mg IVPUSH BID [facility] Last Admin: 12/16/24 08:21 Dose: 20 mg Documented By: JENNA Gemfibrozil ([facility]il 600 Mg Tablet) [facility] Last Admin: 12/16/24 06:38 Dose: 600 mg Documented By: AIDEN Hydromorphone HCl (Hydromorphone Hcl 2 Mg/Ml Vial) 2 mg IVPUSH Q2H PRN; Protocol PRN Reason: Pain, Severe (Pain Scale 7-10) Last Admin: 12/16/24 11:08 Dose: 2 mg Documented By: JENNA Piperacillin Sod/Tazobactam (Sod 3.375 gm/ Sodium Chloride) 50 mls @ 100 mls/hr IV Q6H [facility] Last Admin: 12/16/24 11:09 Dose: 100 mls/hr Documented By: JENNA Nutrition (Parenteral) (Parenteral Nutrition) 1,680 mls @ 70 mls/hr IV .Q24H [place]; Protocol Stop: 12/16/24 20:59 Last Infusion: 12/15/24 23:00 Dose: 70 mls/hr Documented By: AIDEN Insulin Glargine (Insulin Glargine,Hum.Rec.Anlog 100 Unit/Ml 10 Ml Vial) 15 unit SUBCUT BID [facility] Last Admin: 12/16/24 08:21 Dose: 15 unit Documented By: JENNA Insulin Human Lispro (Insulin Lispro 100 Unit/Ml 3 Ml Vial) 0 unit SUBCUT QIDACHS [facility]; Protocol Last Admin: 12/16/24 08:22 Dose: 4 unit Documented By: JENNA Nitroglycerin (Nitroglycerin 0.4 Mg Tab.Subl) 0.4 mg SUBLINGUAL Q5MX3 PRN PRN Reason: Chest Pain Last Admin: 12/12/24 23:46 Dose: 0.4 mg Documented By: CARMEN Omeprazole (Omeprazole 20 Mg Capsule.Dr) 20 mg PO DAILY@0630 [facility] Last Admin: 12/16/24 05:57 Dose: 20 mg Documented By: AIDEN Ondansetron HCl (Ondansetron Hcl 4 Mg/2 Ml Vial) 4 mg IVPUSH Q6H PRN PRN Reason: Nausea and Vomiting Last Admin: 12/12/24 17:32 Dose: 4 mg Documented By: XIOMARA Pharmacy Consult (Consult Rx Parenteral Nutrition Ordering) 1 each MISCELLANE DAILY PRN PRN Reason: Consult order Polyethylene Glycol (Polyethylene Glycol 3350 17 Gm Powd.Pack) 17 gm PO DAILY PRN PRN Reason: Constipation Last Admin: 12/14/24 20:22 Dose: 17 gm Documented By: CARISSA Sodium Chloride (0.9 % Sodium Chloride Flush 3 Ml Syringe) 3 ml IVFLUSH QSHIFT [place] Last Admin: 12/16/24 08:20 Dose: 3 ml Documented By: JENNA Labs 12/16/24 08:51 12/16/24 08:51 Labs: Laboratory Results - last 24 hr 12/15/24 12/15/24 12/15/24 11:26 16:32 20:06 MCV MCH MCHC RDW Plt Count MPV Absolute Nucleated RBC Nucleated RBC % (auto) Anion Gap Estim Creat Clear Calc Estimated GFR POC Glucose 151 H 147 H 161 H Random Glucose Lactic Acid Calcium Phosphorus Magnesium Total Bilirubin Direct Bilirubin AST ALT Alkaline Phosphatase Total Protein Albumin Triglycerides Cholesterol LDL Cholesterol, Calc HDL Cholesterol 12/16/24 12/16/24 07:31 08:51 MCV 80.5 MCH 26.2 L MCHC 32.6 RDW 15.0 Plt Count 351 MPV 8.9 L Absolute Nucleated RBC 0.020 H Nucleated RBC % (auto) 0.1 Anion Gap 12 Estim Creat Clear Calc 217.0 Estimated GFR > 60 POC Glucose 176 H Random Glucose 190 H Lactic Acid 0.8 Calcium 8.3 L Phosphorus 3.3 Magnesium 1.9 Total Bilirubin 1.2 H Direct Bilirubin 0.7 H AST 69 H ALT 17 Alkaline Phosphatase 155 H Total Protein 6.6 Albumin 2.8 L Triglycerides 280 H Cholesterol 147 LDL Cholesterol, Calc 82 HDL Cholesterol 9 L Procedures Date of Service Date of Service: 12/16/24 Progress Note: A&P Assessment and plan (1) Acute pancreatitis: Status: Acute Plan 29-year-old male admitted for severe pancreatitis likely secondary to elevated triglycerides. Patient febrile this morning, continued leukocytosis 13.7 this morning. H/H continues to decline, now 9.8. Would recommend repeat imaging for possible abscess formation or pancreatic necrosis. Recommend continuing supportive managment, NPO. Continue parenteral nutrition due prolonged NPO. No plan for surgical intervention at this time Time Spent With Patient Time: Total time managing care of this patient today ____ minutes. Quality Stroke Does the patient have a stroke diagnosis?: No VTE Prior VTE?: No VTE Risk Level:: Medical - moderate - high VTE Device Contraindication: N/A - Device Ordered VTE Drug Contraindication: N/A - Med Ordered
[2024-12-16 11:32] LABS: Glucose, Whole Blood 172 mg/dL (60-115)
--- NOTE | 2024-12-16 12:10 | MHC.CLN ---
F/U PATIENT IS NPO AND STARTED PPN 12/15. DX HYPERTRIGLYCERIDE INDUCED ACUTE PANCREATITIS. REVIEWED LABS. KOLTG=308 H. NO LIPIDS IN PPN AT THIS TIME. COMMUNICATED WITH PHARMACY. RECOMMEND ADVANCE PPN TODAY TO PPN AT 100 ML PER HOUR, 1224 KCALS, 102 G PROTEIN (1.1 G/KG IBW), 240 G DEXTROSE. REPLETE LYTES NEEDED. CONTINUE TO MONITOR TRIGLYCERIDES. FOLLOW FOR PPN TOLERANCE, LYTES AND DIET ADVANCEMENT. SEE CLINICAL NUTRITION ASSESSMENT 12/16/24.
[2024-12-16 16:08] LABS: Glucose, Whole Blood 174 mg/dL (60-115)
[2024-12-16] MEDS: Docusate Sodium 100 MG CAPSULE PO (19:40)
[2024-12-16] MEDS: Atorvastatin Calcium 80 MG TABLET PO (19:40)
[2024-12-16] MEDS: polyethylene glycoL 3350 17 GM POWD.PACK PO (19:40)
[2024-12-16] MEDS: Parenteral Nutrition 2,400 ML 100 ML IV (19:41)
[2024-12-16 20:11] LABS: Glucose, Whole Blood 156 mg/dL (60-115)
--- NOTE | 2024-12-16 22:25 | PM.EVENT ---
Event Note Date of Service: 12/16/24 Event Note: Patient with new productive cough and pleuritic chest discomfort. Obtained cxr which is with left sided consolidation. Noted pt is on zosyn, will add vancomycin for hospital acquired pna. Time Spent With Patient Time: Total time managing care of this patient today ____ minutes.
[2024-12-16] MEDS: vancomycin/NS 2,000 MG/500 ML PLAST..BAG 250 MG IV (23:58)
[2024-12-17] MEDS: HYDROmorphone HCl 2 MG/ML VIAL IVPUSH ×8 (02:15→23:23)
[2024-12-17 02:20] VITALS: TEMP 38.1
[2024-12-17] MEDS: Acetaminophen 325 MG TABLET 650 MG PO (02:45)
[2024-12-17 03:09] VITALS: BP 132/64; PULSE 93; RESP 18; TEMP 37.9; O2SAT 93
[2024-12-17] MEDS: Piperacillin Sodium/Tazobactam 3.375 GM in 0.9 % Sodium Chloride 50 ML IV ×4 (04:48→23:23)
[2024-12-17 05:49] LABS: Hemoglobin 9.6 g/dl (14.0-18.0); Mean Corpuscular Hemoglobin 24.9 pg (27.0-33.0); Mean Corpuscular Volume 80.5 fL (80.0-98.0); Mean Platelet Volume 10.3 fL (9.4-12.4); NRBC Pct Auto 0.2 /100WBC (0.0-0.2); Platelet Count 293 X10*3/uL (160-400); Red Blood Count 3.85 X10*6/uL (4.60-5.80); Red Cell Distribution Width 14.9 % (11.0-16.0); White Blood Count 14.4 X10*3/uL (4.8-10.8)
[2024-12-17 05:58] LABS: Anion Gap 16 (12-20); Blood Urea Nitrogen 8 mg/dL (9-16); Calcium 8.4 mg/dL (8.4-10.2); Carbon Dioxide 22 mmol/L (22-29); Chloride 102 mmol/L (96-108); Creatinine Clr Calc Pharmacy 219.8; Estimated Glomerular Filt Rate > 60; Glucose Random 184 mg/dL (60-115); Phosphorus 3.8 mg/dL (2.7-4.5); Sodium 135 mmol/L (135-145)
[2024-12-17] MEDS: gemfibroziL 600 MG TABLET PO ×2 (07:08→16:55)
[2024-12-17] MEDS: Omeprazole 20 MG CAPSULE.DR PO (07:08)
[2024-12-17 07:24] VITALS: BP 132/72; PULSE 85; RESP 18; TEMP 37.6; O2SAT 92
--- NOTE | 2024-12-17 07:27 | PHA.PROG ---
Admission Date/Time: December 08, 2024 00:12 Indication: respiratory Weight in k.8 kg Adjusted body weight in Kg: [place] body weight in Kg: Obesity Dosing Indication % IBW: BMI 41.0 Serum Creatinine - Last 168 Hours 12/10/24 12/11/24 12/12/24 15:19 05:56 06:00 Creatinine 0.74 0.85 0.84 12/13/24 12/14/24 12/15/24 05:41 07:25 06:08 Creatinine 0.77 0.82 0.82 12/16/24 12/17/24 08:51 05:23 Creatinine 0.79 0.78 Estimated CrCl and GFR - Last 168 Hours 12/10/24 12/11/24 12/12/24 15:19 05:56 06:00 Estim Creat Clear Calc 226.8 197.4 199.8 Estimated GFR > 60 > 60 > 60 12/13/24 12/14/24 12/15/24 05:41 07:25 06:08 Estim Creat Clear Calc 217.9 209.0 209.0 Estimated GFR > 60 > 60 > 60 12/16/24 12/17/24 08:51 05:23 Estim Creat Clear Calc 217.0 219.8 Estimated GFR > 60 > 60 Vancomycin Loading Dose: 2000mg X1 Current Vancomycin Dosing Regimen: 1500mg Q8H Vancomycin Monitoring using AUC goal of 400 - 600 range with trough as surrogate marker: 542 Date and Time for next Vancomycin Level to be drawn: 12/18 @16.4 Pharmacist Comments on Vancomycin Plan: Pt's renal fx is good, BMI is very elevated. Starting off more aggressive per indication and weight. Targeting trough of 16.4. Vancomycin dosing will take advantage of [employer] as a clinical decision support tool that uses Bayesian modeling to calculate individual patient's pharmacokinetic parameters and forecast the patient's drug concentration time course with the target goal AUC 24 range of 400 - 600 mg/L/hr.
[2024-12-17 07:43] LABS: Glucose, Whole Blood 190 mg/dL (60-115)
[2024-12-17] MEDS: vancomycin HCL 1,500 MG in 0.9 % Sodium Chloride 500 ML 333.33 MG IV ×2 (08:01→18:26)
[2024-12-17] MEDS: Famotidine/PF 20 MG/2 ML VIAL IVPUSH ×2 (08:02→20:50)
[2024-12-17] MEDS: Insulin Glargine,Hum.rec.anlog 100 UNIT/ML 10 ML VIAL 15 UNIT SUBCUT ×2 (08:02→20:51)
[2024-12-17] MEDS: Insulin Lispro 100 UNIT/ML 3 ML VIAL SUBCUT ×3 (08:03→17:31)
[2024-12-17] MEDS: 0.9 % Sodium Chloride Flush 3 ML SYRINGE IVFLUSH ×2 (08:04→16:55)
--- NOTE | 2024-12-17 09:22 | P.PNGS_ITS ---
Subjective Subjective Date of Service: 12/17/24 <Brady Horn PA-C - Last Filed: 12/17/24 09:28> 12/17/24 <Tito Sawyer MD - Last Filed: 12/17/24 11:25> Patient reports: no new complaints <DENISA Armijo Last Filed: 12/17/24 09:28> Interval history: Patient continues to have abdominal pain throught his abdomen, with radiation to the back. Patient endorses intermittent nausea and 1 episode of vomiting yesterday. Patient had chest x-ray yesterday, found to have left lower lobe consolidation. Denies shortness of breath currently <Brady Horn PA-C - Last Filed: 12/17/24 09:28> Patient continues to have abdominal pain throughout his abdomen, with radiation to the back. Patient endorses intermittent nausea and 1 episode of vomiting yesterday. Patient had chest x-ray yesterday, found to have left lower lobe consolidation. Denies shortness of breath currently <Tito Sawyer MD - Last Filed: 12/17/24 11:25> Physical Exam 2 Vital Signs: Vital Signs: Last Vital Signs Temp 99.6 F 12/17/24 07:24 Pulse 85 12/17/24 07:24 Resp 18 12/17/24 07:24 BP 132/72 12/17/24 07:24 Pulse Ox 92 12/17/24 07:24 O2 Del Method Room Air 12/17/24 07:24 O2 Flow Rate 2 12/17/24 03:09 BMI result Body Mass Index 41.0 <DENISA Armijo Last Filed: 12/17/24 09:28> Const: General: no acute distress, alert and awake; No comfortable <DENISA Armijo Last Filed: 12/17/24 09:28> Orientation/consciousness: patient oriented x3 <DENISA Armijo Last Filed: 12/17/24 09:28> Resp: Effort & Inspection: able to speak in complete sentences <DENISA Armijo Last Filed: 12/17/24 09:28> GI: Inspection: Yes distended (Mild) <DENISA Armijo Last Filed: 12/17/24 09:28> Palpation (GI): Soft to palpation, not firm, Tenderness to palpation present (GI) (Tender throughout), no guarding and not rigid <Brady Horn PA-C - Last Filed: 12/17/24 09:28> Neuro: General: patient oriented x3 <Brady Horn PA-C - Last Filed: 12/17/24 09:28> Objective Data Active Medications Acetaminophen (Acetaminophen 325 Mg Tablet) 650 mg PO Q4H PRN PRN Reason: Pain, Mild 1-3,fever,headache Last Admin: 12/17/24 02:45 Dose: 650 mg Documented By: AIDEN Atorvastatin Calcium (Atorvastatin Calcium 80 Mg Tablet) 80 mg PO BEDTIME [facility] Last Admin: 12/16/24 19:40 Dose: 80 mg Documented By: AIDEN Dextrose (Dextrose 50 % 25 Gm/50 Ml Syringe) 25 gm IVPUSH Q30M PRN PRN Reason: BG < 70 Docusate Sodium (Docusate Sodium 100 Mg Capsule) 100 mg PO BID PRN PRN Reason: Constipation Last Admin: 12/16/24 19:40 Dose: 100 mg Documented By: AIDEN Enoxaparin Sodium (Enoxaparin Sodium 40 Mg/0.4 Ml Syringe) 40 mg SUBCUT Q24H [facility] Last Admin: 12/16/24 08:23 Dose: 40 mg Documented By: JENNA Famotidine (Famotidine/Pf 20 Mg/2 Ml Vial) 20 mg IVPUSH BID [facility] Last Admin: 12/17/24 08:02 Dose: 20 mg Documented By: JENNA Gemfibrozil (Gemfibrozil 600 Mg Tablet) 600 mg PO BIDAC [facility] Last Admin: 12/17/24 07:08 Dose: 600 mg Documented By: AIDEN Hydromorphone HCl (Hydromorphone Hcl 2 Mg/Ml Vial) 2 mg IVPUSH Q2H PRN; Protocol PRN Reason: Pain, Severe (Pain Scale 7-10) Last Admin: 12/17/24 07:08 Dose: 2 mg Documented By: AIDEN Piperacillin Sod/Tazobactam (Sod 3.375 gm/ Sodium Chloride) 50 mls @ 100 mls/hr IV Q6H [facility] Last Infusion: 12/17/24 05:40 Dose: Infused Documented By: AIDEN Nutrition (Parenteral) (Parenteral Nutrition) 2,400 mls @ 100 mls/hr IV .Q24H [facility]; Protocol Stop: 12/17/24 20:59 Last Admin: 12/16/24 19:41 Dose: 100 mls/hr Documented By: AIDEN Vancomycin HCl 1,500 mg/ (Sodium Chloride) 500 mls @ 333.333 mls/hr IV Q8H [facility] Last Admin: 12/17/24 08:01 Dose: 333.33 mls/hr Documented By: JENNA Insulin Glargine (Insulin Glargine,Hum.Rec.Anlog 100 Unit/Ml 10 Ml Vial) 15 unit SUBCUT BID [facility] Last Admin: 12/17/24 08:02 Dose: 15 unit Documented By: JENNA Insulin Human Lispro (Insulin Lispro 100 Unit/Ml 3 Ml Vial) 0 unit SUBCUT QIDACHS [facility]; Protocol Last Admin: 12/17/24 08:03 Dose: 4 unit Documented By: JENNA Nitroglycerin (Nitroglycerin 0.4 Mg Tab.Subl) 0.4 mg SUBLINGUAL Q5MX3 PRN PRN Reason: Chest Pain Last Admin: 12/12/24 23:46 Dose: 0.4 mg Documented By: CARMEN Omeprazole (Omeprazole 20 Mg Capsule.Dr) 20 mg PO DAILY@0630 [facility] Last Admin: 12/17/24 07:08 Dose: 20 mg Documented By: AIDEN Ondansetron HCl (Ondansetron Hcl 4 Mg/2 Ml Vial) 4 mg IVPUSH Q6H PRN PRN Reason: Nausea and Vomiting Last Admin: 12/12/24 17:32 Dose: 4 mg Documented By: XIOMARA Pharmacy Consult (Consult Rx Parenteral Nutrition Ordering) 1 each MISCELLANE DAILY PRN PRN Reason: Consult order Pharmacy Consult (Consult Rx Vancomycin Dosing) 1 each MISCELLANE DAILY PRN PRN Reason: Consult order Polyethylene Glycol (Polyethylene Glycol 3350 17 Gm Powd.Pack) 17 gm PO DAILY PRN PRN Reason: Constipation Last Admin: 12/16/24 19:40 Dose: 17 gm Documented By: AIDEN Sodium Chloride (0.9 % Sodium Chloride Flush 3 Ml Syringe) 3 ml IVFLUSH QSHIFT [facility] Last Admin: 12/17/24 08:04 Dose: 3 ml Documented By: JENNA <Brady Horn PA-C - Last Filed: 12/17/24 09:28> Labs CBC & Chem 7: 12/17/24 05:23 12/17/24 05:23 <Brady Horn PA-C - Last Filed: 12/17/24 09:28> Labs: Laboratory Results - last 24 hr 12/16/24 12/16/24 12/16/24 08:51 11:24 16:04 MCV MCH MCHC RDW Plt Count MPV Absolute Nucleated RBC Nucleated RBC % (auto) Anion Gap 12 Estim Creat Clear Calc 217.0 Estimated GFR > 60 POC Glucose 172 H 174 H Random Glucose 190 H Lactic Acid 0.8 Calcium 8.3 L Phosphorus 3.3 Magnesium 1.9 Total Bilirubin 1.2 H Direct Bilirubin 0.7 H AST 69 H ALT 17 Alkaline Phosphatase 155 H Total Protein 6.6 Albumin 2.8 L Triglycerides 280 H Cholesterol 147 LDL Cholesterol, Calc 82 HDL Cholesterol 9 L 12/16/24 12/17/24 12/17/24 19:59 05:23 07:29 MCV 80.5 MCH 24.9 L MCHC 31.0 RDW 14.9 Plt Count 293 MPV 10.3 Absolute Nucleated RBC 0.030 H Nucleated RBC % (auto) 0.2 Anion Gap 16 Estim Creat Clear Calc 219.8 Estimated GFR > 60 POC Glucose 156 H 190 H Random Glucose 184 H Lactic Acid Calcium 8.4 Phosphorus 3.8 Magnesium 2.0 Total Bilirubin Direct Bilirubin AST ALT Alkaline Phosphatase Total Protein Albumin Triglycerides Cholesterol LDL Cholesterol, Calc HDL Cholesterol <Brady Horn PA-C - Last Filed: 12/17/24 09:28> Microbiology Microbiology Results: Microbiology 12/16/24 08:51 Blood Culture - Preliminary Blood - Venous <Brady Horn PA-C - Last Filed: 12/17/24 09:28> Procedures Date of Service Date of Service: 12/17/24 <Brady Horn PA-C - Last Filed: 12/17/24 09:28> 12/17/24 <Tito Sawyer MD - Last Filed: 12/17/24 11:25> Progress Note: A&P Assessment and plan (1) Acute pancreatitis: Status: Acute <Brady Horn PA-C - Last Filed: 12/17/24 09:28> Assessment and Plan: 29-year-old male admitted for severe pancreatitis likely secondary to elevated triglycerides. Patient found to have left lower lobe consolidation on chest x-ray yesterday, etiology for fever yesterday. Patient already on Zosyn hospitalist team added vancomycin. Patient's abdomen is unchanged from yesterday. No plan for surgical intervention at this time. We will continue to follow <Brady Horn PA-C - Last Filed: 12/17/24 09:28> Time Spent With Patient Time: Total time managing care of this patient today ____ minutes. <Brady Horn PA-C - Last Filed: 12/17/24 09:28> Quality Stroke Does the patient have a stroke diagnosis?: No <Brady Horn PA-C - Last Filed: 12/17/24 09:28> VTE Prior VTE?: No <Brady Horn PA-C - Last Filed: 12/17/24 09:28> VTE Risk Level:: Medical - moderate - high <Brady Horn PA-C - Last Filed: 12/17/24 09:28> VTE Device Contraindication: N/A - Device Ordered <Brady Horn PA-C - Last Filed: 12/17/24 09:28> VTE Drug Contraindication: N/A - Med Ordered <Brady Horn PA-C - Last Filed: 12/17/24 09:28>
[2024-12-17] MEDS: Enoxaparin Sodium 40 MG/0.4 ML SYRINGE SUBCUT (09:52)
[2024-12-17] MEDS: Docusate Sodium 100 MG CAPSULE PO (09:52)
--- NOTE | 2024-12-17 09:53 | MHC.CLN ---
F/U REVIEWED LABS. MAOMC=806 H. NO LIPIDS IN PPN AT THIS TIME COMMUNICATED WITH PHARMACY CONTINUE PPN AT 100 ML PER HOUR PROVIDES 1224 KCALS, 102 G PROTEIN (1.1 G/KG IBW), 240 G DEXTROSE REPLETE LYTES NEEDED MONITOR FOR DIET ADVANCEMENT
[2024-12-17 10:40] LABS: Albumin Level 2.8 g/dL (3.5-5.0)
--- NOTE | 2024-12-17 11:38 | HO.PM.IMPN ---
Subjective Subjective Date of Service: 12/17/24 Interval History: pain about the same Physical Exam Vital Signs: Vital Signs: Last Vital Signs Temp 99.6 F 12/17/24 07:24 Pulse 85 12/17/24 07:24 Resp 18 12/17/24 07:24 BP 132/72 12/17/24 07:24 Pulse Ox 92 12/17/24 07:24 O2 Del Method Room Air 12/17/24 07:24 O2 Flow Rate 2 12/17/24 03:09 BMI result Body Mass Index 41.0 Const: General: no acute distress, alert and awake; No comfortable Orientation/consciousness: patient oriented x3 Resp: Effort & Inspection: able to speak in complete sentences GI: Inspection: Yes distended (Mild) Palpation (GI): Soft to palpation, not firm, Tenderness to palpation present (GI) (Tender throughout), no guarding and not rigid Neuro: General: patient oriented x3 Objective Data Active Medications Acetaminophen (Acetaminophen 325 Mg Tablet) 650 mg PO Q4H PRN PRN Reason: Pain, Mild 1-3,fever,headache Last Admin: 12/17/24 02:45 Dose: 650 mg Documented By: AIDEN Atorvastatin Calcium (Atorvastatin Calcium 80 Mg Tablet) 80 mg PO BEDTIME REPLACED BY [facility] Last Admin: 12/16/24 19:40 Dose: 80 mg Documented By: AIDEN Dextrose (Dextrose 50 % 25 Gm/50 Ml Syringe) 25 gm IVPUSH Q30M PRN PRN Reason: BG < 70 Docusate Sodium (Docusate Sodium 100 Mg Capsule) 100 mg PO BID PRN PRN Reason: Constipation Last Admin: 12/17/24 09:52 Dose: 100 mg Documented By: JENNA Enoxaparin Sodium (Enoxaparin Sodium 40 Mg/0.4 Ml Syringe) 40 mg SUBCUT Q24H REPLACED [facility] Last Admin: 12/17/24 09:52 Dose: 40 mg Documented By: JENNA Famotidine (Famotidine/Pf 20 Mg/2 Ml Vial) 20 mg IVPUSH BID [facility]PL[facility]ED [facility] Last Admin: 12/17/24 08:02 Dose: 20 mg Documented By: JENNA Gemfibrozil (Gemfibrozil 600 Mg Tablet) 600 mg PO BIDAC REPLACED BY [facility] Last Admin: 12/17/24 07:08 Dose: 600 mg Documented By: AIDEN Hydromorphone HCl (Hydromorphone Hcl 2 Mg/Ml Vial) 2 mg IVPUSH Q2H PRN; Protocol PRN Reason: Pain, Severe (Pain Scale 7-10) Last Admin: 12/17/24 10:14 Dose: 2 mg Documented By: JENNA Piperacillin Sod/Tazobactam (Sod 3.375 gm/ Sodium Chloride) 50 mls @ 100 mls/hr IV Q6H [facility]PL[facility]ED [facility] Last Infusion: 12/17/24 10:24 Dose: Infused Documented By: JENNA Nutrition (Parenteral) (Parenteral Nutrition) 2,400 mls @ 100 mls/hr IV .Q24H [facility]; Protocol Stop: 12/17/24 20:59 Last Admin: 12/16/24 19:41 Dose: 100 mls/hr Documented By: AIDEN Vancomycin HCl 1,500 mg/ (Sodium Chloride) 500 mls @ 333.333 mls/hr IV Q8H [facility]PL[facility]ED [facility] Last Infusion: 12/17/24 10:08 Dose: Infused Documented By: JENNA Nutrition (Parenteral) (Parenteral Nutrition) 2,400 mls @ 100 mls/hr IV .Q24H [facility]PL[facility]; Protocol Stop: 12/18/24 20:59 Insulin Glargine (Insulin Glargine,Hum.Rec.Anlog 100 Unit/Ml 10 Ml Vial) 15 unit SUBCUT BID [facility]PL[facility]ED BY [facility] Last Admin: 12/17/24 08:02 Dose: 15 unit Documented By: JENNA Insulin Human Lispro (Insulin Lispro 100 Unit/Ml 3 Ml Vial) 0 unit SUBCUT QIDACHS REPLACED BY [facility]; Protocol Last Admin: 12/17/24 08:03 Dose: 4 unit Documented By: JENNA Nitroglycerin (Nitroglycerin 0.4 Mg Tab.Subl) 0.4 mg SUBLINGUAL Q5MX3 PRN PRN Reason: Chest Pain Last Admin: 12/12/24 23:46 Dose: 0.4 mg Documented By: CARMEN Omeprazole (Omeprazole 20 Mg Capsule.) 20 mg PO DAILY@0630 REPLACED BY [facility] Last Admin: 12/17/24 07:08 Dose: 20 mg Documented By: AIDEN Ondansetron HCl (Ondansetron Hcl 4 Mg/2 Ml Vial) 4 mg IVPUSH Q6H PRN PRN Reason: Nausea and Vomiting Last Admin: 12/12/24 17:32 Dose: 4 mg Documented By: XIOMARA Pharmacy Consult (Consult Rx Parenteral Nutrition Ordering) 1 each MISCELLANE DAILY PRN PRN Reason: Consult order Pharmacy Consult (Consult Rx Vancomycin Dosing) 1 each MISCELLANE DAILY PRN PRN Reason: Consult order Polyethylene Glycol (Polyethylene Glycol 3350 17 Gm Powd.Pack) 17 gm PO DAILY PRN PRN Reason: Constipation Last Admin: 12/16/24 19:40 Dose: 17 gm Documented By: ROSITA-WANG Sodium Chloride (0.9 % Sodium Chloride Flush 3 Ml Syringe) 3 ml IVFLUSH QSHIFT REPLACED BY [facility] Last Admin: 12/17/24 08:04 Dose: 3 ml Documented By: JENNA Labs 12/17/24 05:23 12/17/24 05:23 Labs: Laboratory Results - last 24 hr 12/16/24 12/16/24 12/17/24 16:04 19:59 05:23 MCV 80.5 MCH 24.9 L MCHC 31.0 RDW 14.9 Plt Count 293 MPV 10.3 Absolute Nucleated RBC 0.030 H Nucleated RBC % (auto) 0.2 Anion Gap 16 Estim Creat Clear Calc 219.8 Estimated GFR > 60 POC Glucose 174 H 156 H Random Glucose 184 H Calcium 8.4 Phosphorus 3.8 Magnesium 2.0 Albumin 2.8 L 12/17/24 07:29 MCV MCH MCHC RDW Plt Count MPV Absolute Nucleated RBC Nucleated RBC % (auto) Anion Gap Estim Creat Clear Calc Estimated GFR POC Glucose 190 H Random Glucose Calcium Phosphorus Magnesium Albumin Microbiology Microbiology Results: Microbiology 12/16/24 08:51 Blood Culture - Preliminary Blood - Venous No growth after 24 hours. 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 of note had stroke alert 12/08/24 for facial parasthesias SIRS due to Acute pancreatitis Due to hypertriglyceridemia Started on statin and gemfibrozil, triglycerides have decreased from 5000 to 281 worsening pain, repeat ct abd with phlegmon and free fluid, started zosyn, gi and surgery following npo, ivf, ppn will request picc DKA Resolved, continue basal bolus insulin Episode of paresthesias with twitching Neuro appreciated, unlikely CVA/TIA, Metabolic syndrome Weight loss recommended Glomus jugulare tumor Continue follow up outpatient with Dr. Iglesias DVT prophylaxis with Lovenox Full Code reason for continued hospitalization: Not tolerating p.o. Quality Stroke Does the patient have a stroke diagnosis?: No VTE Prior VTE?: No VTE Risk Level:: Medical - moderate - high VTE Device Contraindication: N/A - Device Ordered VTE Drug Contraindication: N/A - Med Ordered
[2024-12-17 11:46] LABS: Glucose, Whole Blood 139 mg/dL (60-115)
[2024-12-17 15:31] VITALS: BP 144/84; PULSE 91; RESP 16; TEMP 36.9; O2SAT 95
[2024-12-17 16:30] LABS: Glucose, Whole Blood 181 mg/dL (60-115)
[2024-12-17 19:30] VITALS: BP 139/72; PULSE 96; RESP 18; TEMP 37.1; O2SAT 94
[2024-12-17] MEDS: Atorvastatin Calcium 80 MG TABLET PO (20:50)
[2024-12-17 21:21] LABS: Glucose, Whole Blood 135 mg/dL (60-115)
[2024-12-18] MEDS: Parenteral Nutrition 2,400 ML 100 ML IV ×2 (02:05→21:46)
[2024-12-18] MEDS: 0.9 % Sodium Chloride Flush 3 ML SYRINGE IVFLUSH ×4 (02:15→22:05)
[2024-12-18] MEDS: vancomycin HCL 1,500 MG in 0.9 % Sodium Chloride 500 ML 333.33 MG IV ×3 (02:15→15:53)
[2024-12-18] MEDS: HYDROmorphone HCl 2 MG/ML VIAL IVPUSH ×8 (02:35→21:42)
[2024-12-18 03:39] VITALS: BP 129/70; PULSE 85; RESP 18; TEMP 36.9; O2SAT 93
[2024-12-18] MEDS: Piperacillin Sodium/Tazobactam 3.375 GM in 0.9 % Sodium Chloride 50 ML IV ×4 (04:21→22:02)
[2024-12-18] MEDS: ondansetron HCL 4 MG/2 ML VIAL IVPUSH (04:44)
[2024-12-18 05:00] VITALS: BMI 40.5
[2024-12-18] MEDS: Omeprazole 20 MG CAPSULE.DR PO (05:22)
[2024-12-18] MEDS: Acetaminophen 325 MG TABLET 650 MG PO (05:22)
[2024-12-18 06:13] LABS: Albumin Level 2.8 g/dL (3.5-5.0); Anion Gap 12 (12-20); Blood Urea Nitrogen 8 mg/dL (9-16); Calcium 8.5 mg/dL (8.4-10.2); Carbon Dioxide 24 mmol/L (22-29); Chloride 103 mmol/L (96-108); Creatinine Clr Calc Pharmacy 227.1; Estimated Glomerular Filt Rate > 60; Glucose Random 171 mg/dL (60-115); Phosphorus 3.5 mg/dL (2.7-4.5); Potassium 4.2 mmol/L (3.3-5.1); Sodium 135 mmol/L (135-145)
[2024-12-18 06:49] LABS: Vancomycin Random 16.9 mcg/mL (15-20)
--- NOTE | 2024-12-18 06:55 | HE.PHANOTE ---
RE: VANCO DOSING Trough came back as 16.9 mg/L and renal function is stable. Continue with 1500 mg q8h, next trough scheduled for 12/18/24 @2100.
[2024-12-18 07:26] VITALS: BP 123/68; PULSE 86; RESP 16; TEMP 36.2; O2SAT 93
[2024-12-18 07:34] LABS: Glucose, Whole Blood 147 mg/dL (60-115)
[2024-12-18] MEDS: gemfibroziL 600 MG TABLET PO ×2 (07:52→15:20)
[2024-12-18] MEDS: Famotidine/PF 20 MG/2 ML VIAL IVPUSH ×2 (07:52→21:50)
[2024-12-18] MEDS: Enoxaparin Sodium 40 MG/0.4 ML SYRINGE SUBCUT (07:53)
[2024-12-18] MEDS: Insulin Glargine,Hum.rec.anlog 100 UNIT/ML 10 ML VIAL 15 UNIT SUBCUT ×2 (07:53→21:50)
--- NOTE | 2024-12-18 09:04 | P.PNIM_ITS ---
Subjective Subjective Date of Service: 12/18/24 Interval History: wants to try clears today Physical Exam 2 Vital Signs: Vital Signs: Last Vital Signs Temp 97.1 F 12/18/24 07:26 Pulse 86 12/18/24 07:26 Resp 16 12/18/24 07:26 BP 123/68 12/18/24 07:26 Pulse Ox 93 12/18/24 07:26 O2 Del Method Room Air 12/18/24 07:26 O2 Flow Rate 1.5 12/17/24 15:31 BMI result Body Mass Index 40.5 Const: General: no acute distress, alert and awake; No comfortable O rientation/consciousness: patient oriented x3 Resp: Effort & Inspection: able to speak in complete sentences GI: Inspection: Yes distended (Mild) Palpation (GI): Soft to palpation, not firm, Tenderness to palpation present (GI) (Tender throughout), no guarding and not rigid Neuro: General: patient oriented x3 Objective Data Active Medications Acetaminophen (Acetaminophen 325 Mg Tablet) 650 mg PO Q4H PRN PRN Reason: Pain, Mild 1-3,fever,headache Last Admin: 12/18/24 05:22 Dose: 650 mg Documented By: KALYAN Atorvastatin Calcium (Atorvastatin Calcium 80 Mg Tablet) 80 mg PO BEDTIME [facility] Last Admin: 12/17/24 20:50 Dose: 80 mg Documented By: KALYAN Dextrose (Dextrose 50 % 25 Gm/50 Ml Syringe) 25 gm IVPUSH Q30M PRN PRN Reason: BG < 70 Docusate Sodium (Docusate Sodium 100 Mg Capsule) 100 mg PO BID PRN PRN Reason: Constipation Last Admin: 12/17/24 09:52 Dose: 100 mg Documented By: JENNA Enoxaparin Sodium (Enoxaparin Sodium 40 Mg/0.4 Ml Syringe) 40 mg SUBCUT Q24H [facility] Last Admin: 12/18/24 07:53 Dose: 40 mg Documented By: NADER Famotidine (Famotidine/Pf 20 Mg/2 Ml Vial) 20 mg IVPUSH BID [facility] Last Admin: 12/18/24 07:52 Dose: 20 mg Documented By: NADER Gemfibrozil (G[facility]il 600 Mg Tablet) [facility] Last Admin: 12/18/24 07:52 Dose: 600 mg Documented By: NADER Hydromorphone HCl (Hydromorphone Hcl 2 Mg/Ml Vial) 2 mg IVPUSH Q2H PRN; Protocol PRN Reason: Pain, Severe (Pain Scale 7-10) Last Admin: 12/18/24 07:52 Dose: 2 mg Documented By: NADER Piperacillin Sod/Tazobactam (Sod 3.375 gm/ Sodium Chloride) 50 mls @ 100 mls/hr IV Q6H [facility] Last Infusion: 12/18/24 04:55 Dose: Infused Documented By: KALYAN Vancomycin HCl 1,500 mg/ (Sodium Chloride) 500 mls @ 333.333 mls/hr IV Q8H [facility] Last Admin: 12/18/24 07:51 Dose: 333.33 mls/hr Documented By: NADER Nutrition (Parenteral) (Parenteral Nutrition) 2,400 mls @ 100 mls/hr IV .Q24H [facility]; Protocol Stop: 12/18/24 20:59 Last Admin: 12/18/24 02:05 Dose: 100 mls/hr Documented By: KALYAN Insulin Glargine (Insulin Glargine,Hum.Rec.Anlog 100 Unit/Ml 10 Ml Vial) 15 unit SUBCUT BID [facility] Last Admin: 12/18/24 07:53 Dose: 15 unit Documented By: NADER Insulin Human Lispro (Insulin Lispro 100 Unit/Ml 3 Ml Vial) 0 unit SUBCUT QIDACHS [facility]; Protocol Last Admin: 12/18/24 07:42 Dose: Not Given Documented By: NADER Non-Admin Reason: No Insulin Coverage Nitroglycerin (Nitroglycerin 0.4 Mg Tab.Subl) 0.4 mg SUBLINGUAL Q5MX3 PRN PRN Reason: Chest Pain Last Admin: 12/12/24 23:46 Dose: 0.4 mg Documented By: CARMEN Omeprazole (Omeprazole 20 Mg Capsule.Dr) 20 mg PO DAILY@0630 [facility] Last Admin: 12/18/24 05:22 Dose: 20 mg Documented By: KALYAN Ondansetron HCl (Ondansetron Hcl 4 Mg/2 Ml Vial) 4 mg IVPUSH Q6H PRN PRN Reason: Nausea and Vomiting Last Admin: 12/18/24 04:44 Dose: 4 mg Documented By: KALYAN Pharmacy Consult (Consult Rx Parenteral Nutrition Ordering) 1 each MISCELLANE DAILY PRN PRN Reason: Consult order Pharmacy Consult (Consult Rx Vancomycin Dosing) 1 each MISCELLANE DAILY PRN PRN Reason: Consult order Polyethylene Glycol (Polyethylene Glycol 3350 17 Gm Powd.Pack) 17 gm PO DAILY PRN PRN Reason: Constipation Last Admin: 12/16/24 19:40 Dose: 17 gm Documented By: ROSITA-WANG Sodium Chloride (0.9 % Sodium Chloride Flush 3 Ml Syringe) 3 ml IVFLUSH QSHIFT [facility] Last Admin: 12/18/24 07:53 Dose: 3 ml Documented By: VENLA Labs 12/17/24 05:23 12/18/24 05:43 Labs: Laboratory Results - last 24 hr 12/17/24 12/17/24 12/17/24 05:23 11:32 16:26 Hold Purple Top Anion Gap Estim Creat Clear Calc Estimated GFR POC Glucose 139 H 181 H Random Glucose Calcium Phosphorus Magnesium Albumin 2.8 L Random Vancomycin 12/17/24 12/18/24 12/18/24 21:16 05:43 07:31 Hold Purple Top SEE NOTE Anion Gap 12 Estim Creat Clear Calc 227.1 Estimated GFR > 60 POC Glucose 135 H 147 H Random Glucose 171 H Calcium 8.5 Phosphorus 3.5 Magnesium 2.0 Albumin 2.8 L Random Vancomycin 16.9 Microbiology Microbiology Results: Microbiology 12/16/24 08:51 Blood Culture - Preliminary Blood - Venous No growth after 24 hours. 12/16/24 08:51 Blood Culture - Preliminary Blood - Venous No growth after 24 hours. 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 of note had stroke alert 12/08/24 for facial parasthesias SIRS due to Acute pancreatitis Due to hypertriglyceridemia Started on statin and gemfibrozil, triglycerides have decreased from 5000 to 280 worsening pain, repeat ct abd with phlegmon and free fluid, started zosyn, gi and surgery following on ppn, will request picc interested in advancing to clears today possible pneumonia continue vanc, zosyn DKA Resolved, continue basal bolus insulin Episode of paresthesias with twitching Neuro appreciated, unlikely CVA/TIA, Metabolic syndrome Weight loss recommended Glomus jugulare tumor Continue follow up outpatient with Dr. Iglesias DVT prophylaxis with Lovenox Full Code reason for continued hospitalization: Not tolerating p.o. Quality Stroke Does the patient have a stroke diagnosis?: No VTE Prior VTE?: No VTE Risk Level:: Medical - moderate - high VTE Device Contraindication: N/A - Device Ordered VTE Drug Contraindication: N/A - Med Ordered
--- NOTE | 2024-12-18 09:32 | P.PNGS_ITS ---
Subjective Subjective Date of Service: 12/18/24 Patient reports: no new complaints and diarrhea Interval history: Patient continues to have significant upper abdominal pain, however he reports that he does feel a little bit better today compared to other days. Physical Exam 2 Vital Signs: Vital Signs: Last Vital Signs Temp 97.1 F 12/18/24 07:26 Pulse 86 12/18/24 07:26 Resp 16 12/18/24 07:26 BP 123/68 12/18/24 07:26 Pulse Ox 93 12/18/24 07:26 O2 Del Method Room Air 12/18/24 07:26 O2 Flow Rate 1.5 12/17/24 15:31 BMI result Body Mass Index 40.5 Const: General: comfortable and no acute distress O rientation/consciousness: patient oriented x3 Resp: Effort & Inspection: normal respiratory effort and able to speak in complete sentences GI: Inspection: Yes distended (Mild) Palpation (GI): Soft to palpation, not firm, Tenderness to palpation present (GI) (Throughout), no guarding and not rigid Neuro: General: patient oriented x3 Objective Data Active Medications Acetaminophen (Acetaminophen 325 Mg Tablet) 650 mg PO Q4H PRN PRN Reason: Pain, Mild 1-3,fever,headache Last Admin: 12/18/24 05:22 Dose: 650 mg Documented By: KALYAN Atorvastatin Calcium (Atorvastatin Calcium 80 Mg Tablet) 80 mg PO BEDTIME [facility] Last Admin: 12/17/24 20:50 Dose: 80 mg Documented By: KALYAN Dextrose (Dextrose 50 % 25 Gm/50 Ml Syringe) 25 gm IVPUSH Q30M PRN PRN Reason: BG < 70 Docusate Sodium (Docusate Sodium 100 Mg Capsule) 100 mg PO BID PRN PRN Reason: Constipation Last Admin: 12/17/24 09:52 Dose: 100 mg Documented By: JENNA Enoxaparin Sodium (Enoxaparin Sodium 40 Mg/0.4 Ml Syringe) 40 mg SUBCUT Q24H [facility] Last Admin: 12/18/24 07:53 Dose: 40 mg Documented By: NADER Famotidine (Famotidine/Pf 20 Mg/2 Ml Vial) 20 mg IVPUSH BID [facility] Last Admin: 12/18/24 07:52 Dose: 20 mg Documented By: NADER Gemfibrozil (Gemfibrozil 600 Mg Tablet) 600 mg PO BIDAC [facility] Last Admin: 12/18/24 07:52 Dose: 600 mg Documented By: NADER Hydromorphone HCl (Hydromorphone Hcl 2 Mg/Ml Vial) 2 mg IVPUSH Q2H PRN; Protocol PRN Reason: Pain, Severe (Pain Scale 7-10) Last Admin: 12/18/24 07:52 Dose: 2 mg Documented By: NADER Piperacillin Sod/Tazobactam (Sod 3.375 gm/ Sodium Chloride) 50 mls @ 100 mls/hr IV Q6H [facility] Last Infusion: 12/18/24 04:55 Dose: Infused Documented By: KALYAN Vancomycin HCl 1,500 mg/ (Sodium Chloride) 500 mls @ 333.333 mls/hr IV Q8H [facility] Last Infusion: 12/18/24 09:29 Dose: Infused Documented By: NADER Nutrition (Parenteral) (Parenteral Nutrition) 2,400 mls @ 100 mls/hr IV .Q24H [facility]; Protocol Stop: 12/18/24 20:59 Last Admin: 12/18/24 02:05 Dose: 100 mls/hr Documented By: KALYAN Insulin Glargine (Insulin Glargine,Hum.Rec.Anlog 100 Unit/Ml 10 Ml Vial) 15 unit SUBCUT BID [facility] Last Admin: 12/18/24 07:53 Dose: 15 unit Documented By: NADER Insulin Human Lispro (Insulin Lispro 100 Unit/Ml 3 Ml Vial) 0 unit SUBCUT QIDACHS [facility]; Protocol Last Admin: 12/18/24 07:42 Dose: Not Given Documented By: NADER Non-Admin Reason: No Insulin Coverage Nitroglycerin (Nitroglycerin 0.4 Mg Tab.Subl) 0.4 mg SUBLINGUAL Q5MX3 PRN PRN Reason: Chest Pain Last Admin: 12/12/24 23:46 Dose: 0.4 mg Documented By: CARMEN Omeprazole (Omeprazole 20 Mg Capsule.) 20 mg PO DAILY@0630 [facility] Last Admin: 12/18/24 05:22 Dose: 20 mg Documented By: KALYAN Ondansetron HCl (Ondansetron Hcl 4 Mg/2 Ml Vial) 4 mg IVPUSH Q6H PRN PRN Reason: Nausea and Vomiting Last Admin: 12/18/24 04:44 Dose: 4 mg Documented By: KALYAN Pharmacy Consult (Consult Rx Parenteral Nutrition Ordering) 1 each MISCELLANE DAILY PRN PRN Reason: Consult order Pharmacy Consult (Consult Rx Vancomycin Dosing) 1 each MISCELLANE DAILY PRN PRN Reason: Consult order Polyethylene Glycol (Polyethylene Glycol 3350 17 Gm Powd.Pack) 17 gm PO DAILY PRN PRN Reason: Constipation Last Admin: 12/16/24 19:40 Dose: 17 gm Documented By: ROSITA-WANG Sodium Chloride (0.9 % Sodium Chloride Flush 3 Ml Syringe) 3 ml IVFLUSH QSHIFT [facility] Last Admin: 12/18/24 07:53 Dose: 3 ml Documented By: NADER Labs 12/17/24 05:23 12/18/24 05:43 Labs: Laboratory Results - last 24 hr 12/17/24 12/17/24 12/17/24 05:23 11:32 16:26 Hold Purple Top Anion Gap Estim Creat Clear Calc Estimated GFR POC Glucose 139 H 181 H Random Glucose Calcium Phosphorus Magnesium Albumin 2.8 L Random Vancomycin 12/17/24 12/18/24 12/18/24 21:16 05:43 07:31 Hold Purple Top SEE NOTE Anion Gap 12 Estim Creat Clear Calc 227.1 Estimated GFR > 60 POC Glucose 135 H 147 H Random Glucose 171 H Calcium 8.5 Phosphorus 3.5 Magnesium 2.0 Albumin 2.8 L Random Vancomycin 16.9 Microbiology Microbiology Results: Microbiology 12/16/24 08:51 Blood Culture - Preliminary Blood - Venous No growth after 24 hours. 12/16/24 08:51 Blood Culture - Preliminary Blood - Venous No growth after 24 hours. Procedures Date of Service Date of Service: 12/18/24 Progress Note: A&P Assessment and plan (1) Acute pancreatitis: Status: Acute Plan 29-year-old male admitted for acute pancreatitis secondary to hypertriglyceridemia. Patient largely unchanged from yesterday. He notes some mild improvement in his pain however he continues to have significant upper abdominal pain. Upper Abdomen remains mildly distended and exquisitely tender to palpation. Patient was found to have pneumonia hospitalist team continuing vancomycin and Zosyn. Per hospitalist patient would like to try clears today. Currently no plan for surgical intervention, we will continue to follow. Time Spent With Patient Time: Total time managing care of this patient today ____ minutes. Quality Stroke Does the patient have a stroke diagnosis?: No VTE Prior VTE?: No VTE Risk Level:: Medical - moderate - high VTE Device Contraindication: N/A - Device Ordered VTE Drug Contraindication: N/A - Med Ordered
--- NOTE | 2024-12-18 10:32 | MHC.CLN ---
F/U DIET ADVANCED TO CLEAR LIQUIDS THIS MORNING CONTINUE PPN REVIEWED LABS. CYHAO=925 H. NO LIPIDS IN PPN AT THIS TIME COMMUNICATED WITH PHARMACY CONTINUE PPN AT 100 ML PER HOUR PROVIDES 1224 KCALS, 102 G PROTEIN (1.1 G/KG IBW), 240 G DEXTROSE REPLETE LYTES NEEDED MONITOR FOR DIET ADVANCEMENT
--- NOTE | 2024-12-18 12:41 | MHC.CM.PN ---
EMR REVIEWED AND PER MD ROUNDS, PT IS NOT YET MEDICALLY CLEARED FOR DC.(ATTEMPTING CLEAR LIQUIDS TODAY, PPN CONT. IV ABT FOR PNA) CM WILL CONTINUE TO FOLLOW FOR ANY CHANGE TO DC PLAN/NEEDS.
--- NOTE | 2024-12-18 12:58 | P.PICC_ITS ---
PICC Line Insertion NPICC Diagnosis: Indication: TPN Pertinent Labs: Reviewed Technique: Following informed consent including risks, benefits and alternatives and using sterile technique including cap and mask, sterile gown, glove and drape, the right arm was prepped and draped in the usual sterile fashion of full barrier technique with CHG. Following completion of [place] Protocol the skin and soft tissues were anesthetized with 1% Lidocaine plain. Using ultrasound guidance, the patent right basilic vein access was obtained in a single attempt by this RN. Over an 0.018 wire through peel-away sheath, a triple lumen 5 Romansh PASV PICC line was positioned. Catheter length is 45cm internal length, the external length is a the 0 external dm, for a total trimmed length of 45cm. The procedure was performed in 272. Tip verification was performed by Chandler Gilbert with Sherlock 3CG. Tip located in SVC. Ultrasound was used to document vein patency and for needle entry. A formal ultrasound picture and cardiac rhythm strip was recorded. [employer] has released the line for use and it is currently dressed with a StatLock, Tegaderm, and CHG disc. Verification has been performed for blood return and line patency. Arm Circumference: 43.5cm Equipment: [employer] PowerPICC SOLO HF Catheter with Sherlock 3 CG TIp Positioning Sy stem (TPS Stylet) Catheter Type: Triple lumen 5 Romansh PASV PICC Lot #: [id number]
[2024-12-18 15:11] VITALS: BP 140/71; PULSE 98; RESP 16; TEMP 37.6; O2SAT 92
[2024-12-18 16:24] LABS: Glucose, Whole Blood 176 mg/dL (60-115)
[2024-12-18] MEDS: Insulin Lispro 100 UNIT/ML 3 ML VIAL SUBCUT ×2 (17:19→21:57)
[2024-12-18 19:19] VITALS: BP 139/72; PULSE 93; RESP 12; TEMP 37.1; O2SAT 94
[2024-12-18 20:30] LABS: Glucose, Whole Blood 151 mg/dL (60-115)
[2024-12-18 21:42] LABS: Vancomycin Random 11.3 mcg/mL (15-20)
[2024-12-18] MEDS: Atorvastatin Calcium 80 MG TABLET PO (21:50)
[2024-12-18] MEDS: 0.9 % Sodium Chloride Flush 10 ML SYRINGE IVFLUSH (22:05)
[2024-12-19] MEDS: HYDROmorphone HCl 2 MG/ML VIAL IVPUSH ×9 (00:39→22:13)
[2024-12-19] MEDS: vancomycin HCL 1,500 MG in 0.9 % Sodium Chloride 500 ML 333.33 MG IV ×2 (00:41→16:40)
[2024-12-19] MEDS: Piperacillin Sodium/Tazobactam 3.375 GM in 0.9 % Sodium Chloride 50 ML IV ×4 (03:29→21:57)
[2024-12-19 03:38] VITALS: BP 133/68; PULSE 87; RESP 18; TEMP 36.7; O2SAT 97
[2024-12-19] MEDS: Omeprazole 20 MG CAPSULE.DR PO (05:57)
[2024-12-19 07:12] LABS: Albumin Level 2.8 g/dL (3.5-5.0); Anion Gap 12 (12-20); Blood Urea Nitrogen 8 mg/dL (9-16); Calcium 8.4 mg/dL (8.4-10.2); Carbon Dioxide 25 mmol/L (22-29); Chloride 101 mmol/L (96-108); Creatinine Clr Calc Pharmacy 224.1; Estimated Glomerular Filt Rate > 60; Glucose Random 161 mg/dL (60-115); Magnesium 1.9 mg/dL (1.6-2.6); Phosphorus 3.7 mg/dL (2.7-4.5); Potassium 4.3 mmol/L (3.3-5.1); Sodium 134 mmol/L (135-145)
[2024-12-19 07:45] VITALS: BP 152/74; PULSE 94; RESP 18; TEMP 36.7; O2SAT 91
[2024-12-19 07:49] LABS: Glucose, Whole Blood 153 mg/dL (60-115)
[2024-12-19] MEDS: gemfibroziL 600 MG TABLET PO ×2 (08:12→16:19)
[2024-12-19] MEDS: Insulin Lispro 100 UNIT/ML 3 ML VIAL SUBCUT ×4 (08:12→21:58)
[2024-12-19] MEDS: vancomycin HCL 1,500 MG in 0.9 % Sodium Chloride 500 ML 333 MG IV (09:00)
[2024-12-19] MEDS: Famotidine/PF 20 MG/2 ML VIAL IVPUSH ×2 (09:02→19:45)
[2024-12-19] MEDS: 0.9 % Sodium Chloride Flush 10 ML SYRINGE IVFLUSH (09:06)
[2024-12-19] MEDS: Insulin Glargine,Hum.rec.anlog 100 UNIT/ML 10 ML VIAL 15 UNIT SUBCUT ×2 (09:08→21:58)
[2024-12-19] MEDS: Enoxaparin Sodium 40 MG/0.4 ML SYRINGE SUBCUT (09:08)
--- NOTE | 2024-12-19 09:41 | MHC.CLN ---
F/U PO INTAKE 50% X 1 MEAL DIET RX: CLEAR LIQUIDS PT RECEIVED PICC LINE YESTERDAY 12/18 REVIEWED LABS COMMUNICATED WITH PHARMACY RECOMMEND SWITCHING TO TPN AT 85ML PER HOUR TO PROVIDE 1448 KCALS, 102 G PROTEIN (1.1 G/KG IBW), 306 G DEXTROSE HOLD LIPIDS AT THIS TIME REPLETE LYTES NEEDED GOAL TO DECREASE TPN PO IMPROVES
--- NOTE | 2024-12-19 09:53 | P.PNGS_ITS ---
Subjective Subjective Date of Service: 12/19/24 Patient reports: no new complaints Interval history: Patient continues to have abdominal pain throughout the abdomen. He does note that this has improved since admission. He was started on clear liquids, as tolerating this well he did endorse some nausea but attributes this to not liking the taste. Denies vomiting. He denies fever or chills. Patient endorses some shortness of breath, especially when he is experiencing increased pain. Physical Exam 2 Vital Signs: Vital Signs: Last Vital Signs Temp 98.1 F 12/19/24 07:45 Pulse 94 12/19/24 07:45 Resp 18 12/19/24 07:45 BP 152/74 H 12/19/24 07:45 Pulse Ox 91 L 12/19/24 07:45 O2 Del Method Room Air 12/19/24 07:45 O2 Flow Rate 1.5 12/17/24 15:31 BMI result Body Mass Index 40.5 Const: General: no acute distress Orientation/consciousness: patient oriented x3 Resp: Effort & Inspection: able to speak in complete sentences GI: Inspection: Yes distended (Mild) Palpation (GI): Soft to palpation, not firm, Tenderness to palpation present (GI) (Throughout), no guarding and not rigid Neuro: General: patient oriented x3 Objective Data Active Medications Acetaminophen (Acetaminophen 325 Mg Tablet) 650 mg PO Q4H PRN PRN Reason: Pain, Mild 1-3,fever,headache Last Admin: 12/18/24 05:22 Dose: 650 mg Documented By: KALYAN Atorvastatin Calcium (Atorvastatin Calcium 80 Mg Tablet) 80 mg PO BEDTIME [facility] Last Admin: 12/18/24 21:50 Dose: 80 mg Documented By: NEDRA Dextrose (Dextrose 50 % 25 Gm/50 Ml Syringe) 25 gm IVPUSH Q30M PRN PRN Reason: BG < 70 Docusate Sodium (Docusate Sodium 100 Mg Capsule) 100 mg PO BID PRN PRN Reason: Constipation Last Admin: 12/17/24 09:52 Dose: 100 mg Documented By: JENNA Enoxaparin Sodium (Enoxaparin Sodium 40 Mg/0.4 Ml Syringe) 40 mg SUBCUT Q24H [facility] Last Admin: 12/19/24 09:08 Dose: 40 mg Documented By: GERALD Famotidine (Famotidine/Pf 20 Mg/2 Ml Vial) 20 mg IVPUSH BID [facility] Last Admin: 12/19/24 09:02 Dose: 20 mg Documented By: GERALD Gemfibrozil (Gemfibrozil 600 Mg Tablet) 600 mg PO BIDAC [facility] Last Admin: 12/19/24 08:12 Dose: 600 mg Documented By: GERALD Hydromorphone HCl (Hydromorphone Hcl 2 Mg/Ml Vial) 2 mg IVPUSH Q2H PRN; Protocol PRN Reason: Pain, Severe (Pain Scale 7-10) Last Admin: 12/19/24 08:37 Dose: 2 mg Documented By: LESIA Piperacillin Sod/Tazobactam (Sod 3.375 gm/ Sodium Chloride) 50 mls @ 100 mls/hr IV Q6H [facility] Last Infusion: 12/19/24 04:05 Dose: Infused Documented By: NEDRA Vancomycin HCl 1,500 mg/ (Sodium Chloride) 500 mls @ 333.333 mls/hr IV Q8H [facility] Last Admin: 12/19/24 09:00 Dose: 333 mls/hr Documented By: GERALD Nutrition (Parenteral) (Parenteral Nutrition) 2,400 mls @ 100 mls/hr IV .Q24H [facility]; Protocol Stop: 12/19/24 20:59 Last Admin: 12/18/24 21:46 Dose: 100 mls/hr Documented By: NEDRA Insulin Glargine (Insulin Glargine,Hum.Rec.Anlog 100 Unit/Ml 10 Ml Vial) 15 unit SUBCUT BID [facility] Last Admin: 12/19/24 09:08 Dose: 15 unit Documented By: GERALD Insulin Human Lispro (Insulin Lispro 100 Unit/Ml 3 Ml Vial) 0 unit SUBCUT QIDACHS [facility]; Protocol Last Admin: 12/19/24 08:12 Dose: 4 unit Documented By: GERALD Nitroglycerin (Nitroglycerin 0.4 Mg Tab.Subl) 0.4 mg SUBLINGUAL Q5MX3 PRN PRN Reason: Chest Pain Last Admin: 12/12/24 23:46 Dose: 0.4 mg Documented By: CARMEN Omeprazole (Omeprazole 20 Mg Capsule.Dr) 20 mg PO DAILY@0630 [facility] Last Admin: 12/19/24 05:57 Dose: 20 mg Documented By: NEDRA Ondansetron HCl (Ondansetron Hcl 4 Mg/2 Ml Vial) 4 mg IVPUSH Q6H PRN PRN Reason: Nausea and Vomiting Last Admin: 12/18/24 04:44 Dose: 4 mg Documented By: KALYAN Pharmacy Consult (Consult Rx Parenteral Nutrition Ordering) 1 each MISCELLANE DAILY PRN PRN Reason: Consult order Pharmacy Consult (Consult Rx Vancomycin Dosing) 1 each MISCELLANE DAILY PRN PRN Reason: Consult order Polyethylene Glycol (Polyethylene Glycol 3350 17 Gm Powd.Pack) 17 gm PO DAILY PRN PRN Reason: Constipation Last Admin: 12/16/24 19:40 Dose: 17 gm Documented By: AIDEN Sodium Chloride (0.9 % Sodium Chloride Flush 3 Ml Syringe) 3 ml IVFLUSH [facility] Last Admin: 12/19/24 09:10 Dose: Not Given Documented By: GERALD Non-Admin Reason: No Access Sodium Chloride (0.9 % Sodium Chloride Flush 10 Ml Syringe) 10 ml IVFLUSH [facility] Last Admin: 12/19/24 09:06 Dose: 10 ml Documented By: GERALD Labs 12/17/24 05:23 12/19/24 06:30 Labs: Laboratory Results - last 24 hr 12/18/24 12/18/24 12/18/24 16:20 20:27 21:07 Hold Purple Top Anion Gap Estim Creat Clear Calc Estimated GFR POC Glucose 176 H 151 H Random Glucose Calcium Phosphorus Magnesium Albumin Hold Red Top Random Vancomycin 11.3 L 12/18/24 12/19/24 12/19/24 21:45 06:30 07:43 Hold Purple Top SEE NOTE Anion Gap 12 Estim Creat Clear Calc 224.1 Estimated GFR > 60 POC Glucose 153 H Random Glucose 161 H Calcium 8.4 Phosphorus 3.7 Magnesium 1.9 Albumin 2.8 L Hold Red Top See Note Random Vancomycin Microbiology Microbiology Results: Microbiology 12/16/24 08:51 Blood Culture - Preliminary Blood - Venous No growth after 48 hours. 12/16/24 08:51 Blood Culture - Preliminary Blood - Venous No growth after 48 hours. Procedures Date of Service Date of Service: 12/19/24 Progress Note: A&P Assessment and plan (1) Acute pancreatitis: Status: Acute Plan 29-year-old male admitted for acute pancreatitis secondary to hypertriglyceridemia. Patient is slowly improving, continues to have abdominal pain throughout the abdomen. Diet was advanced yesterday to clear liquids, patient tolerating well so far. Continues to pass liquid bowel movements. Abdominal exam is soft, pain to palpation throughout. Patient endorsing intermittent shortness of breath, likely secondary to hospital-acquired pneumonia. Patient is already being treated with antibiotics per hospitalist team. Would recommend supplemental oxygen as needed. No current plan for surgical intervention. Recommend continuing supportive management. At this time general surgery will sign off, please reconsult as needed in the future Time Spent With Patient Time: Total time managing care of this patient today ____ minutes. Quality Stroke Does the patient have a stroke diagnosis?: No VTE Prior VTE?: No VTE Risk Level:: Medical - moderate - high VTE Device Contraindication: N/A - Device Ordered VTE Drug Contraindication: N/A - Med Ordered
--- NOTE | 2024-12-19 10:08 | HO.PM.IMPN ---
Subjective Subjective Date of Service: 12/19/24 Interval History: appetite and pain slowly improving, wants to try a bit of solids Physical Exam Vital Signs: Vital Signs: Last Vital Signs Temp 98.1 F 12/19/24 07:45 Pulse 94 12/19/24 07:45 Resp 18 12/19/24 07:45 BP 152/74 H 12/19/24 07:45 Pulse Ox 91 L 12/19/24 07:45 O2 Del Method Room Air 12/19/24 07:45 O2 Flow Rate 1.5 12/17/24 15:31 BMI result Body Mass Index 40.5 Const: General: no acute distress Orientation/consciousness: patient oriented x3 Resp: Effort & Inspection: able to speak in complete sentences GI: Inspection: Yes distended (Mild) Palpation (GI): Soft to palpation, not firm, Tenderness to palpation present (GI) (Throughout), no guarding and not rigid Neuro: General: patient oriented x3 Objective Data Active Medications Acetaminophen (Acetaminophen 325 Mg Tablet) 650 mg PO Q4H PRN PRN Reason: Pain, Mild 1-3,fever,headache Last Admin: 12/18/24 05:22 Dose: 650 mg Documented By: KALYAN Atorvastatin Calcium (Atorvastatin Calcium 80 Mg Tablet) 80 mg PO BEDTIME [facility] Last Admin: 12/18/24 21:50 Dose: 80 mg Documented By: NEDRA Dextrose (Dextrose 50 % 25 Gm/50 Ml Syringe) 25 gm IVPUSH Q30M PRN PRN Reason: BG < 70 Docusate Sodium (Docusate Sodium 100 Mg Capsule) 100 mg PO BID PRN PRN Reason: Constipation Last Admin: 12/17/24 09:52 Dose: 100 mg Documented By: JENNA Enoxaparin Sodium (Enoxaparin Sodium 40 Mg/0.4 Ml Syringe) 40 mg SUBCUT Q24H [facility] Last Admin: 12/19/24 09:08 Dose: 40 mg Documented By: GERALD Famotidine (Famotidine/Pf 20 Mg/2 Ml Vial) 20 mg IVPUSH BID [facility] Last Admin: 12/19/24 09:02 Dose: 20 mg Documented By: GERALD Gemfibrozil (Gemfibrozil 600 Mg Tablet) 600 mg PO BIDAC [facility] Last Admin: 12/19/24 08:12 Dose: 600 mg Documented By: GERALD Hydromorphone HCl (Hydromorphone Hcl 2 Mg/Ml Vial) 2 mg IVPUSH Q2H PRN; Protocol PRN Reason: Pain, Severe (Pain Scale 7-10) Last Admin: 12/19/24 08:37 Dose: 2 mg Documented By: LESIA Piperacillin Sod/Tazobactam (Sod 3.375 gm/ Sodium Chloride) 50 mls @ 100 mls/hr IV Q6H [facility] Last Infusion: 12/19/24 04:05 Dose: Infused Documented By: NEDRA Vancomycin HCl 1,500 mg/ (Sodium Chloride) 500 mls @ 333.333 mls/hr IV Q8H [facility] Last Admin: 12/19/24 09:00 Dose: 333 mls/hr Documented By: GERALD Nutrition (Parenteral) (Parenteral Nutrition) 2,400 mls @ 100 mls/hr IV .Q24H [facility]; Protocol Stop: 12/19/24 20:59 Last Admin: 12/18/24 21:46 Dose: 100 mls/hr Documented By: NEDRA Insulin Glargine (Insulin Glargine,Hum.Rec.Anlog 100 Unit/Ml 10 Ml Vial) 15 unit SUBCUT BID [facility] Last Admin: 12/19/24 09:08 Dose: 15 unit Documented By: GERALD Insulin Human Lispro (Insulin Lispro 100 Unit/Ml 3 Ml Vial) 0 unit SUBCUT QIDACHS [facility]; Protocol Last Admin: 12/19/24 08:12 Dose: 4 unit Documented By: GERALD Nitroglycerin (Nitroglycerin 0.4 Mg Tab.Subl) 0.4 mg SUBLINGUAL Q5MX3 PRN PRN Reason: Chest Pain Last Admin: 12/12/24 23:46 Dose: 0.4 mg Documented By: CARMEN Omeprazole (Omeprazole 20 Mg Capsule.Dr) 20 mg PO DAILY@0630 [facility] Last Admin: 12/19/24 05:57 Dose: 20 mg Documented By: NEDRA Ondansetron HCl (Ondansetron Hcl 4 Mg/2 Ml Vial) 4 mg IVPUSH Q6H PRN PRN Reason: Nausea and Vomiting Last Admin: 12/18/24 04:44 Dose: 4 mg Documented By: KALYAN Pharmacy Consult (Consult Rx Parenteral Nutrition Ordering) 1 each MISCELLANE DAILY PRN PRN Reason: Consult order Pharmacy Consult (Consult Rx Vancomycin Dosing) 1 each MISCELLANE DAILY PRN PRN Reason: Consult order Polyethylene Glycol (Polyethylene Glycol 3350 17 Gm Powd.Pack) 17 gm PO DAILY PRN PRN Reason: Constipation Last Admin: 12/16/24 19:40 Dose: 17 gm Documented By: AIDEN Sodium Chloride (0.9 % Sodium Chloride Flush 3 Ml Syringe) 3 ml IVFLUSH QSPRFT [facility] Last Admin: 12/19/24 09:10 Dose: Not Given Documented By: GERALD Non-Admin Reason: No Access Sodium Chloride (0.9 % Sodium Chloride Flush 10 Ml Syringe) 10 ml IVFLUSH QSPRFT [facility] Last Admin: 12/19/24 09:06 Dose: 10 ml Documented By: GERALD Labs 12/17/24 05:23 12/19/24 06:30 Labs: Laboratory Results - last 24 hr 12/18/24 12/18/24 12/18/24 16:20 20:27 21:07 Hold Purple Top Anion Gap Estim Creat Clear Calc Estimated GFR POC Glucose 176 H 151 H Random Glucose Calcium Phosphorus Magnesium Albumin Hold Red Top Random Vancomycin 11.3 L 12/18/24 12/19/24 12/19/24 21:45 06:30 07:43 Hold Purple Top SEE NOTE Anion Gap 12 Estim Creat Clear Calc 224.1 Estimated GFR > 60 POC Glucose 153 H Random Glucose 161 H Calcium 8.4 Phosphorus 3.7 Magnesium 1.9 Albumin 2.8 L Hold Red Top See Note Random Vancomycin Microbiology Microbiology Results: Microbiology 12/16/24 08:51 Blood Culture - Preliminary Blood - Venous No growth after 48 hours. 12/16/24 08:51 Blood Culture - Preliminary Blood - Venous No growth after 48 hours. 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 of note had stroke alert 12/08/24 for facial parasthesias SIRS due to Acute pancreatitis Due to hypertriglyceridemia Started on statin and gemfibrozil, triglycerides have decreased from [address] abd 12/12/24 with phlegmon and free fluid, started zosyn, gi and surgery following on tpn via picc tolerated some clears on 12/18/24, will advance to solids today possible pneumonia continue vanc (dc if mrsa swab negative), zosyn DKA Resolved, continue basal bolus insulin Episode of paresthesias with twitching Neuro appreciated, unlikely CVA/TIA, Metabolic syndrome Weight loss recommended Glomus jugulare tumor Continue to follow up outpatient with rad/onc, Dr. Iglesias DVT prophylaxis with Lovenox Full Code reason for continued hospitalization: awaiting po tolerance Quality Stroke Does the patient have a stroke diagnosis?: No VTE Prior VTE?: No VTE Risk Level:: Medical - moderate - high VTE Device Contraindication: N/A - Device Ordered VTE Drug Contraindication: N/A - Med Ordered
[2024-12-19 11:05] VITALS: RESP 16
[2024-12-19 11:30] LABS: Glucose, Whole Blood 148 mg/dL (60-115)
[2024-12-19 12:53] LABS: Vancomycin Random 16.1 mcg/mL (15-20)
[2024-12-19 15:30] VITALS: BP 145/75; PULSE 87; RESP 17; TEMP 37.9; O2SAT 94
[2024-12-19 16:16] VITALS: RESP 16
[2024-12-19] MEDS: 0.9 % Sodium Chloride Flush 3 ML SYRINGE IVFLUSH (16:16)
[2024-12-19 16:24] LABS: Glucose, Whole Blood 155 mg/dL (60-115)
[2024-12-19 17:11] LABS: MRSA Nasal PCR NEGATIVE (Negative); SA Nasal PCR NEGATIVE (Negative)
[2024-12-19 19:28] VITALS: BP 129/77; PULSE 101; RESP 18; TEMP 37.7; O2SAT 94
[2024-12-19] MEDS: Atorvastatin Calcium 80 MG TABLET PO (19:39)
[2024-12-19] MEDS: ondansetron HCL 4 MG/2 ML VIAL IVPUSH (19:43)
[2024-12-19 20:30] LABS: Glucose, Whole Blood 141 mg/dL (60-115)
[2024-12-19] MEDS: Parenteral Nutrition 2,040 ML 85 ML IV (21:55)
[2024-12-20] MEDS: HYDROmorphone HCl 2 MG/ML VIAL IVPUSH ×8 (01:19→22:41)
[2024-12-20 03:25] VITALS: BP 122/89; PULSE 89; RESP 16; TEMP 36.7; O2SAT 97
[2024-12-20] MEDS: Piperacillin Sodium/Tazobactam 3.375 GM in 0.9 % Sodium Chloride 50 ML IV ×4 (04:12→22:17)
[2024-12-20 06:00] VITALS: BMI 40.8
[2024-12-20 06:38] LABS: Albumin Level 2.8 g/dL (3.5-5.0); Anion Gap 13 (12-20); Blood Urea Nitrogen 9 mg/dL (9-16); Calcium 8.5 mg/dL (8.4-10.2); Carbon Dioxide 25 mmol/L (22-29); Chloride 101 mmol/L (96-108); Creatinine Clr Calc Pharmacy 219.3; Estimated Glomerular Filt Rate > 60; Glucose Random 172 mg/dL (60-115); Magnesium 1.9 mg/dL (1.6-2.6); Potassium 4.3 mmol/L (3.3-5.1); Sodium 135 mmol/L (135-145)
[2024-12-20 07:51] LABS: Glucose, Whole Blood 171 mg/dL (60-115)
[2024-12-20] MEDS: 0.9 % Sodium Chloride Flush 3 ML SYRINGE IVFLUSH (07:57)
[2024-12-20 08:00] VITALS: BP 141/81; PULSE 86; RESP 18; TEMP 37.2; O2SAT 93
[2024-12-20] MEDS: Famotidine/PF 20 MG/2 ML VIAL IVPUSH ×2 (08:00→21:18)
[2024-12-20] MEDS: Enoxaparin Sodium 40 MG/0.4 ML SYRINGE SUBCUT (08:00)
[2024-12-20] MEDS: gemfibroziL 600 MG TABLET PO ×2 (08:01→16:34)
[2024-12-20] MEDS: Insulin Lispro 100 UNIT/ML 3 ML VIAL SUBCUT ×4 (08:01→21:17)
[2024-12-20] MEDS: Omeprazole 20 MG CAPSULE.DR PO (08:01)
[2024-12-20] MEDS: Insulin Glargine,Hum.rec.anlog 100 UNIT/ML 10 ML VIAL 15 UNIT SUBCUT ×2 (08:01→21:17)
--- NOTE | 2024-12-20 09:15 | P.PNIM_ITS ---
Subjective Subjective Date of Service: 12/20/24 Interval History: Tolerated minimal solids yesterday, still requiring frequent pain meds but less frequent than previous Physical Exam 2 Vital Signs: Vital Signs: Last Vital Signs Temp 98.9 F 12/20/24 08:00 Pulse 86 12/20/24 08:00 Resp 18 12/20/24 08:00 BP 141/81 H 12/20/24 08:00 Pulse Ox 93 12/20/24 08:00 O2 Del Method Room Air 12/20/24 08:00 O2 Flow Rate 1.5 12/17/24 15:31 BMI result Body Mass Index 40.8 Const: General: no acute distress Orientation/consciousness: patient oriented x3 Resp: Effort & Inspection: able to speak in complete sentences GI: Inspection: Yes distended (Mild) Palpation (GI): Soft to palpation, not firm, Tenderness to palpation present (GI) (Throughout), no guarding and not rigid Neuro: General: patient oriented x3 Objective Data Active Medications Acetaminophen (Acetaminophen 325 Mg Tablet) 650 mg PO Q4H PRN PRN Reason: Pain, Mild 1-3,fever,headache Last Admin: 12/18/24 05:22 Dose: 650 mg Documented By: KALYAN Atorvastatin Calcium (Atorvastatin Calcium 80 Mg Tablet) 80 mg PO BEDTIME [facility] Last Admin: 12/19/24 19:39 Dose: 80 mg Documented By: KALYAN Dextrose (Dextrose 50 % 25 Gm/50 Ml Syringe) 25 gm IVPUSH Q30M PRN PRN Reason: BG < 70 Docusate Sodium (Docusate Sodium 100 Mg Capsule) 100 mg PO BID PRN PRN Reason: Constipation Last Admin: 12/17/24 09:52 Dose: 100 mg Documented By: JENNA Enoxaparin Sodium (Enoxaparin Sodium 40 Mg/0.4 Ml Syringe) 40 mg SUBCUT Q24H [facility] Last Admin: 12/20/24 08:00 Dose: 40 mg Documented By: GUERO Famotidine (Famotidine/Pf 20 Mg/2 Ml Vial) 20 mg IVPUSH BID [facility] Last Admin: 12/20/24 08:00 Dose: 20 mg Documented By: GUERO Gemfibrozil (Gemfibrozil 600 Mg Tablet) 600 mg PO BIDAC [facility] Last Admin: 12/20/24 08:01 Dose: 600 mg Documented By: GUERO Hydromorphone HCl (Hydromorphone Hcl 2 Mg/Ml Vial) 2 mg IVPUSH Q2H PRN; Protocol PRN Reason: Pain, Severe (Pain Scale 7-10) Last Admin: 12/20/24 07:57 Dose: 2 mg Documented By: GUERO Hydromorphone HCl (Hydromorphone Hcl 1 Mg/Ml Syringe) 1 mg IVPUSH Q2H PRN; Protocol PRN Reason: Pain, Moderate(Pain Scale 4-6) Piperacillin Sod/Tazobactam (Sod 3.375 gm/ Sodium Chloride) 50 mls @ 100 mls/hr IV Q6H [facility] Last Infusion: 12/20/24 04:45 Dose: Infused Documented By: KALYAN Nutrition (Parenteral) (Parenteral Nutrition) 2,040 mls @ 85 mls/hr IV .Q24H [facility]; Protocol Stop: 12/20/24 20:59 Last Admin: 12/19/24 21:55 Dose: 85 mls/hr Documented By: KALYAN Insulin Glargine (Insulin Glargine,Hum.Rec.Anlog 100 Unit/Ml 10 Ml Vial) 15 unit SUBCUT BID [facility] Last Admin: 12/20/24 08:01 Dose: 15 unit Documented By: GUERO Insulin Human Lispro (Insulin Lispro 100 Unit/Ml 3 Ml Vial) 0 unit SUBCUT QIDACHS [facility]; Protocol Last Admin: 12/20/24 08:01 Dose: 4 unit Documented By: GUERO Nitroglycerin (Nitroglycerin 0.4 Mg Tab.Subl) 0.4 mg SUBLINGUAL Q5MX3 PRN PRN Reason: Chest Pain Last Admin: 12/12/24 23:46 Dose: 0.4 mg Documented By: CARMEN Omeprazole (Omeprazole 20 Mg Capsule.Dr) 20 mg PO DAILY@0630 [facility] Last Admin: 12/20/24 08:01 Dose: 20 mg Documented By: GUERO Ondansetron HCl (Ondansetron Hcl 4 Mg/2 Ml Vial) 4 mg IVPUSH Q6H PRN PRN Reason: Nausea and Vomiting Last Admin: 12/19/24 19:43 Dose: 4 mg Documented By: KALYAN Pharmacy Consult (Consult Rx Parenteral Nutrition Ordering) 1 each MISCELLANE DAILY PRN PRN Reason: Consult order Pharmacy Consult (Consult Rx Vancomycin Dosing) 1 each MISCELLANE DAILY PRN PRN Reason: Consult order Polyethylene Glycol (Polyethylene Glycol 3350 17 Gm Powd.Pack) 17 gm PO DAILY PRN PRN Reason: Constipation Last Admin: 12/16/24 19:40 Dose: 17 gm Documented By: AIDEN Sodium Chloride (0.9 % Sodium Chloride Flush 3 Ml Syringe) 3 ml IVFLUSH QSHIFT [facility] Last Admin: 12/20/24 07:57 Dose: 3 ml Documented By: GUERO Sodium Chloride (0.9 % Sodium Chloride Flush 10 Ml Syringe) 10 ml IVFLUSH QSHIFT [facility] Last Admin: 12/20/24 08:01 Dose: Not Given Documented By: GUERO Non-Admin Reason: Previously Administered Labs 12/17/24 05:23 12/20/24 05:33 Labs: Laboratory Results - last 24 hr 12/19/24 12/19/24 12/19/24 11:27 12:13 15:50 Hold Purple Top Anion Gap Estim Creat Clear Calc Estimated GFR POC Glucose 148 H Random Glucose Calcium Phosphorus Magnesium Albumin Nasal Screen MRSA (PCR) NEGATIVE Nasal S. aureus Screen NEGATIVE Nasal MRSA/S.aureus Interp SEE NOTE Random Vancomycin 16.1 12/19/24 12/19/24 12/20/24 16:04 20:26 05:33 Hold Purple Top SEE NOTE Anion Gap 13 Estim Creat Clear Calc 219.3 Estimated GFR > 60 POC Glucose 155 H 141 H Random Glucose 172 H Calcium 8.5 Phosphorus 4.0 Magnesium 1.9 Albumin 2.8 L Nasal Screen MRSA (PCR) Nasal S. aureus Screen Nasal MRSA/S.aureus Interp Random Vancomycin 12/20/24 07:20 Hold Purple Top Anion Gap Estim Creat Clear Calc Estimated GFR POC Glucose 171 H Random Glucose Calcium Phosphorus Magnesium Albumin Nasal Screen MRSA (PCR) Nasal S. aureus Screen Nasal MRSA/S.aureus Interp Random Vancomycin Microbiology Microbiology Results: Microbiology 12/16/24 08:51 Blood Culture - Preliminary Blood - Venous No growth after 48 hours. 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 of note had stroke alert 12/08/24 for facial parasthesias SIRS due to Acute pancreatitis Due to hypertriglyceridemia Started on statin and gemfibrozil, triglycerides have decreased from [address] abd 12/12/24 with phlegmon and free fluid, started zosyn, gi and surgery following on tpn via picc Overall has been improving over the last several days, advanced to solids but only tolerating small amounts, trying to wean himself off of pain medications possible pneumonia MRSA swab negative discontinued vancomycin, Continue zosyn DKA Resolved, continue basal bolus insulin Episode of paresthesias with twitching Neuro appreciated, unlikely CVA/TIA, Metabolic syndrome Weight loss recommended Glomus jugulare tumor Continue to follow up outpatient with rad/onc, Dr. Iglesias DVT prophylaxis with Lovenox Full Code reason for continued hospitalization: awaiting po tolerance Quality Stroke Does the patient have a stroke diagnosis?: No VTE Prior VTE?: No VTE Risk Level:: Medical - moderate - high VTE Device Contraindication: N/A - Device Ordered VTE Drug Contraindication: N/A - Med Ordered
--- NOTE | 2024-12-20 09:47 | MHC.CLN ---
F/U ON 12/19, DIET ADVANCED TO DIABETIC 1800 KCALS, LOW FAT, BLAND, LACTOSE CONTROLLED. CONTINUES WITH PPN UNTIL ABLE TO TOLERATE ADEQUATE PO. REVIEWED LABS. COMMUNICATED WITH PHARMACY. RECOMMEND CONTINUE TPN AT 85ML PER HOUR TO PROVIDE 1448 KCALS (16.3 KCALS/KG IBW), 102 G PROTEIN (1.1 G/KG IBW), 306 G DEXTROSE. HOLD LIPIDS AT THIS TIME. REPLETE LYTES NEEDED. GOAL TO DECREASE TPN PO IMPROVES.
[2024-12-20 11:10] LABS: Glucose, Whole Blood 180 mg/dL (60-115)
--- NOTE | 2024-12-20 12:50 | MHC.CM.PN ---
EMR REVIEWED AND PER MD ROUNDS, PT IS NOT MEDICALLY CLEARED FOR DC (ADVANCING DIET, WEANING DOWN PAIN MEDS, CONTINUED PPN) CM WILL CONTINUE TO FOLLOW FOR ANY CHANGE TO DC PLAN/NEEDS.
[2024-12-20 15:14] VITALS: BP 149/91; PULSE 98; RESP 18; TEMP 36.4; O2SAT 95
[2024-12-20 16:08] LABS: Glucose, Whole Blood 152 mg/dL (60-115)
[2024-12-20 19:52] VITALS: BP 144/69; PULSE 81; RESP 18; TEMP 36.8; O2SAT 96
[2024-12-20 20:13] LABS: Glucose, Whole Blood 150 mg/dL (60-115)
[2024-12-20] MEDS: Atorvastatin Calcium 80 MG TABLET PO (21:18)
[2024-12-20] MEDS: Parenteral Nutrition 2,040 ML 85 ML IV (21:48)
[2024-12-21] MEDS: HYDROmorphone HCl 2 MG/ML VIAL IVPUSH ×8 (01:12→22:15)
[2024-12-21 03:10] VITALS: BP 132/74; PULSE 88; RESP 20; TEMP 36.9; O2SAT 94
[2024-12-21] MEDS: Piperacillin Sodium/Tazobactam 3.375 GM in 0.9 % Sodium Chloride 50 ML IV ×4 (04:19→21:42)
[2024-12-21 06:00] VITALS: BMI 40.0
[2024-12-21] MEDS: Omeprazole 20 MG CAPSULE.DR PO (06:13)
[2024-12-21 06:35] LABS: Albumin Level 2.9 g/dL (3.5-5.0); Anion Gap 15 (12-20); Blood Urea Nitrogen 10 mg/dL (9-16); Calcium 8.8 mg/dL (8.4-10.2); Carbon Dioxide 24 mmol/L (22-29); Chloride 101 mmol/L (96-108); Creatinine Clr Calc Pharmacy 222.6; Estimated Glomerular Filt Rate > 60; Glucose Random 153 mg/dL (60-115); Magnesium 1.9 mg/dL (1.6-2.6); Phosphorus 4.1 mg/dL (2.7-4.5); Potassium 4.3 mmol/L (3.3-5.1); Sodium 136 mmol/L (135-145)
[2024-12-21 07:39] VITALS: BP 128/70; PULSE 83; RESP 18; TEMP 36; O2SAT 93
[2024-12-21 07:48] LABS: Glucose, Whole Blood 148 mg/dL (60-115)
--- NOTE | 2024-12-21 08:02 | P.PNIM_ITS ---
Subjective Subjective Date of Service: 12/21/24 Interval History: f/u acute pancreaitis d/t high triglyceride, pain is better, seems to be tolerating regular soft diet Physical Exam 2 Vital Signs: Vital Signs: Last Vital Signs Temp 96.8 F 12/21/24 07:39 Pulse 83 12/21/24 07:39 Resp 18 12/21/24 07:39 BP 128/70 12/21/24 07:39 Pulse Ox 93 12/21/24 07:39 O2 Del Method Room Air 12/21/24 07:39 O2 Flow Rate 1.5 12/17/24 15:31 BMI result Body Mass Index 40.0 Const: General: no acute distress Orientation/consciousness: patient oriented x3 Resp: Effort & Inspection: able to speak in complete sentences GI: Inspection: Yes distended (Mild) Palpation (GI): Soft to palpation, not firm, Tenderness to palpation present (GI) (Throughout), no guarding and not rigid Neuro: General: patient oriented x3 Objective Data Active Medications Acetaminophen (Acetaminophen 325 Mg Tablet) 650 mg PO Q4H PRN PRN Reason: Pain, Mild 1-3,fever,headache Last Admin: 12/18/24 05:22 Dose: 650 mg Documented By: KALYAN Atorvastatin Calcium (Atorvastatin Calcium 80 Mg Tablet) 80 mg PO BEDTIME [facility] Last Admin: 12/20/24 21:18 Dose: 80 mg Documented By: CARMEN Dextrose (Dextrose 50 % 25 Gm/50 Ml Syringe) 25 gm IVPUSH Q30M PRN PRN Reason: BG < 70 Docusate Sodium (Docusate Sodium 100 Mg Capsule) 100 mg PO BID PRN PRN Reason: Constipation Last Admin: 12/17/24 09:52 Dose: 100 mg Documented By: JENNA Enoxaparin Sodium (Enoxaparin Sodium 40 Mg/0.4 Ml Syringe) 40 mg SUBCUT Q24H [facility] Last Admin: 12/20/24 08:00 Dose: 40 mg Documented By: GUERO Famotidine (Famotidine/Pf 20 Mg/2 Ml Vial) 20 mg IVPUSH BID [facility] Last Admin: 12/20/24 21:18 Dose: 20 mg Documented By: CARMEN Gemfibrozil (Gemfibrozil 600 Mg Tablet) 600 mg PO BIDAC [facility] Last Admin: 12/20/24 16:34 Dose: 600 mg Documented By: GUERO Hydromorphone HCl (Hydromorphone Hcl 2 Mg/Ml Vial) 2 mg IVPUSH Q2H PRN; Protocol PRN Reason: Pain, Severe (Pain Scale 7-10) Last Admin: 12/21/24 06:39 Dose: 2 mg Documented By: CARMEN Hydromorphone HCl (Hydromorphone Hcl 1 Mg/Ml Syringe) 1 mg IVPUSH Q2H PRN; Protocol PRN Reason: Pain, Moderate(Pain Scale 4-6) Piperacillin Sod/Tazobactam (Sod 3.375 gm/ Sodium Chloride) 50 mls @ 100 mls/hr IV Q6H [facility] Last Infusion: 12/21/24 04:50 Dose: Infused Documented By: CARMEN Nutrition (Parenteral) (Parenteral Nutrition) 2,040 mls @ 85 mls/hr IV .Q24H [facility]; Protocol Stop: 12/21/24 20:59 Last Admin: 12/20/24 21:48 Dose: 85 mls/hr Documented By: CARMEN Nutrition (Parenteral) (Parenteral Nutrition) 2,040 mls @ 85 mls/hr IV .Q24H [facility]; Protocol Stop: 12/22/24 20:59 Insulin Glargine (Insulin Glargine,Hum.Rec.Anlog 100 Unit/Ml 10 Ml Vial) 15 unit SUBCUT BID [facility] Last Admin: 12/20/24 21:17 Dose: 15 unit Documented By: CARMEN Insulin Human Lispro (Insulin Lispro 100 Unit/Ml 3 Ml Vial) 0 unit SUBCUT QIDACHS [facility]; Protocol Last Admin: 12/20/24 21:17 Dose: 2 unit Documented By: CARMEN Nitroglycerin (Nitroglycerin 0.4 Mg Tab.Subl) 0.4 mg SUBLINGUAL Q5MX3 PRN PRN Reason: Chest Pain Last Admin: 12/12/24 23:46 Dose: 0.4 mg Documented By: CARMEN Omeprazole (Omeprazole 20 Mg Capsule.Dr) 20 mg PO DAILY@0630 [facility] Last Admin: 12/21/24 06:13 Dose: 20 mg Documented By: CARMEN Ondansetron HCl (Ondansetron Hcl 4 Mg/2 Ml Vial) 4 mg IVPUSH Q6H PRN PRN Reason: Nausea and Vomiting Last Admin: 12/19/24 19:43 Dose: 4 mg Documented By: KALYAN Pharmacy Consult (Consult Rx Parenteral Nutrition Ordering) 1 each MISCELLANE DAILY PRN PRN Reason: Consult order Pharmacy Consult (Consult Rx Vancomycin Dosing) 1 each MISCELLANE DAILY PRN PRN Reason: Consult order Polyethylene Glycol (Polyethylene Glycol 3350 17 Gm Powd.Pack) 17 gm PO DAILY PRN PRN Reason: Constipation Last Admin: 12/16/24 19:40 Dose: 17 gm Documented By: AIDEN Sodium Chloride (0.9 % Sodium Chloride Flush 3 Ml Syringe) 3 ml IVFLUSH QSHIFT [facility] Last Admin: 12/20/24 22:22 Dose: Not Given Documented By: CARMEN Non-Admin Reason: picc line flush only Sodium Chloride (0.9 % Sodium Chloride Flush 10 Ml Syringe) 10 ml IVFLUSH QSHIFT [facility] Last Admin: 12/21/24 07:58 Dose: Not Given Documented By: ASHLEE Non-Admin Reason: no discharge Labs 12/17/24 05:23 12/21/24 05:24 Labs: Laboratory Results - last 24 hr 12/20/24 12/20/24 12/20/24 10:58 16:00 20:01 Hold Purple Top Anion Gap Estim Creat Clear Calc Estimated GFR POC Glucose 180 H 152 H 150 H Random Glucose Calcium Phosphorus Magnesium Albumin 12/21/24 12/21/24 05:24 07:44 Hold Purple Top SEE NOTE Anion Gap 15 Estim Creat Clear Calc 222.6 Estimated GFR > 60 POC Glucose 148 H Random Glucose 153 H Calcium 8.8 Phosphorus 4.1 Magnesium 1.9 Albumin 2.9 L Assessment and Plan (1) Hypertriglyceridemia: Status: Acute Plan 29M PMH metabolic syndrome with morbid obesity, uncontrolled DM, HTN, hypertriglyceridemia with history of pancreatitis, NAFLD, 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 of note had stroke alert 12/08/24 for facial parasthesias SIRS due to hypertriglyceridemiab induced Acute pancreatitis On statin and gemfibrozil, triglycerides have decreased from [address] abd 12/12/24 with phlegmon and free fluid, started zosyn, gi and surgery following on tpn via picc, Overall has been improving over the last several days, advanced to solids but only tolerating small amounts, trying to wean himself off of pain medications.. DC TPN once tolerating enough reguar food possible pneumonia MRSA swab negative discontinued vancomycin, On Zosyn since 12/14, dc after 10 days DKA Resolved, continue basal bolus insulin Episode of paresthesias with twitching Neuro appreciated, unlikely CVA/TIA, Metabolic syndrome Weight loss recommended Glomus jugulare tumor Continue to follow up outpatient with rad/onc, Dr. Iglesias DVT prophylaxis with Lovenox Full Code reason for continued hospitalization: awaiting po tolerance Quality Stroke Does the patient have a stroke diagnosis?: No VTE Prior VTE?: No VTE Risk Level:: Medical - moderate - high VTE Device Contraindication: N/A - Device Ordered VTE Drug Contraindication: N/A - Med Ordered
[2024-12-21] MEDS: Insulin Glargine,Hum.rec.anlog 100 UNIT/ML 10 ML VIAL 15 UNIT SUBCUT ×2 (08:05→20:55)
[2024-12-21] MEDS: Enoxaparin Sodium 40 MG/0.4 ML SYRINGE SUBCUT (08:06)
[2024-12-21] MEDS: Insulin Lispro 100 UNIT/ML 3 ML VIAL SUBCUT ×4 (08:06→20:55)
[2024-12-21] MEDS: 0.9 % Sodium Chloride Flush 3 ML SYRINGE IVFLUSH ×2 (08:07→16:48)
[2024-12-21] MEDS: gemfibroziL 600 MG TABLET PO ×2 (08:07→16:47)
[2024-12-21] MEDS: Famotidine/PF 20 MG/2 ML VIAL IVPUSH ×2 (08:07→20:09)
[2024-12-21 11:23] LABS: Glucose, Whole Blood 170 mg/dL (60-115)
[2024-12-21 15:22] VITALS: BP 142/71; PULSE 87; RESP 17; TEMP 37.1; O2SAT 94
[2024-12-21 16:14] LABS: Glucose, Whole Blood 147 mg/dL (60-115)
[2024-12-21 19:37] VITALS: BP 142/81; PULSE 87; RESP 18; TEMP 36.4; O2SAT 93
[2024-12-21] MEDS: Atorvastatin Calcium 80 MG TABLET PO (20:09)
[2024-12-21 20:17] LABS: Glucose, Whole Blood 115 mg/dL (60-115)
[2024-12-21] MEDS: Parenteral Nutrition 2,040 ML 85 ML IV (21:33)
[2024-12-22] VITALS (7 sets, daily range): BP systolic 129–151; BP diastolic 63–80; PULSE 80–93; RESP 16–18; TEMP 36.2–37.1; O2SAT 95–97; BMI 39.3
[2024-12-22] MEDS: HYDROmorphone HCl 2 MG/ML VIAL IVPUSH ×7 (01:42→23:03)
[2024-12-22] MEDS: Piperacillin Sodium/Tazobactam 3.375 GM in 0.9 % Sodium Chloride 50 ML IV ×4 (04:57→21:24)
[2024-12-22] MEDS: Omeprazole 20 MG CAPSULE.DR PO (06:03)
[2024-12-22 07:13] LABS: Albumin Level 2.8 g/dL (3.5-5.0); Anion Gap 13 (12-20); Blood Urea Nitrogen 11 mg/dL (9-16); Calcium 8.6 mg/dL (8.4-10.2); Carbon Dioxide 24 mmol/L (22-29); Chloride 103 mmol/L (96-108); Creatinine Clr Calc Pharmacy 212.1; Estimated Glomerular Filt Rate > 60; Glucose Random 152 mg/dL (60-115); Magnesium 1.8 mg/dL (1.6-2.6); Phosphorus 4.4 mg/dL (2.7-4.5); Potassium 4.3 mmol/L (3.3-5.1); Sodium 136 mmol/L (135-145)
[2024-12-22 07:46] LABS: Glucose, Whole Blood 151 mg/dL (60-115)
[2024-12-22] MEDS: Famotidine/PF 20 MG/2 ML VIAL IVPUSH (08:00)
[2024-12-22] MEDS: 0.9 % Sodium Chloride Flush 3 ML SYRINGE IVFLUSH ×2 (08:01→08:04)
[2024-12-22] MEDS: gemfibroziL 600 MG TABLET PO ×2 (08:01→15:21)
[2024-12-22] MEDS: Insulin Glargine,Hum.rec.anlog 100 UNIT/ML 10 ML VIAL 15 UNIT SUBCUT ×2 (08:02→21:23)
[2024-12-22] MEDS: Enoxaparin Sodium 40 MG/0.4 ML SYRINGE SUBCUT (08:03)
[2024-12-22] MEDS: Insulin Lispro 100 UNIT/ML 3 ML VIAL SUBCUT ×4 (08:03→21:23)
[2024-12-22 11:23] LABS: Glucose, Whole Blood 159 mg/dL (60-115)
[2024-12-22] MEDS: gadobutroL 10 ML VIAL IVPUSH (13:57)
[2024-12-22 15:08] LABS: Hemoglobin 9.5 g/dl (14.0-18.0); Mean Corpuscular HGB Conc 31.7 g/dl (31.0-36.0); Mean Corpuscular Hemoglobin 25.6 pg (27.0-33.0); Mean Corpuscular Volume 80.9 fL (80.0-98.0); Mean Platelet Volume 9.2 fL (9.4-12.4); Platelet Count 550 X10*3/uL (160-400); Red Blood Count 3.71 X10*6/uL (4.60-5.80); Red Cell Distribution Width 14.8 % (11.0-16.0); White Blood Count 10.5 X10*3/uL (4.8-10.8)
[2024-12-22 16:11] LABS: Glucose, Whole Blood 179 mg/dL (60-115)
--- NOTE | 2024-12-22 16:21 | HO.PM.IMPN ---
Subjective Subjective Date of Service: 12/22/24 Interval History: seen and examined this morning follow up for pancreatitis History obtained with the assistance of a weather strip installer as well as his significant other at the bedside reporting pain with eating, having liquid stools. no fever Review of Systems Review of Systems: Yes all other systems are reviewed and are negative Constitutional Constitutional: Denies chills and Denies fever(s) Gastrointestinal Gastrointestinal: Reports abdominal pain, Denies nausea and Denies vomiting Physical Exam Vital Signs: Vital Signs: Last Vital Signs Temp 97.2 F 12/22/24 15:33 Pulse 87 12/22/24 15:33 Resp 18 12/22/24 15:33 BP 129/63 12/22/24 15:33 Pulse Ox 96 12/22/24 15:33 O2 Del Method Room Air 12/22/24 15:33 O2 Flow Rate 1.5 12/17/24 15:31 BMI result Body Mass Index 39.3 Const: General: alert, awake and Physically active Nutritional Appearance: obese Orientation/consciousness: patient oriented x3 Resp: Effort & Inspection: normal respiratory effort, able to speak in complete sentences, no respiratory distress and no use of accessory muscles Cardio: Rate: regular rate GI: Other: tender mid abdomen/epigastric area primarily; mild distention Neuro: General: patient oriented x3, moves all extremities and CN's II-XI intact bilaterally Extrem: General: Yes no pedal edema Objective Data Active Medications Acetaminophen (Acetaminophen 325 Mg Tablet) 650 mg PO Q4H PRN PRN Reason: Pain, Mild 1-3,fever,headache Last Admin: 12/18/24 05:22 Dose: 650 mg Documented By: KALYAN Atorvastatin Calcium (Atorvastatin Calcium 80 Mg Tablet) 80 mg PO BEDTIME [facility] Last Admin: 12/21/24 20:09 Dose: 80 mg Documented By: HARITHA Dextrose (Dextrose 50 % 25 Gm/50 Ml Syringe) 25 gm IVPUSH Q30M PRN PRN Reason: BG < 70 Docusate Sodium (Docusate Sodium 100 Mg Capsule) 100 mg PO BID PRN PRN Reason: Constipation Last Admin: 12/17/24 09:52 Dose: 100 mg Documented By: JENNA Enoxaparin Sodium (Enoxaparin Sodium 40 Mg/0.4 Ml Syringe) 40 mg SUBCUT Q24H [facility] Last Admin: 12/22/24 08:03 Dose: 40 mg Documented By: ASHLEE Gabapentin (Gabapentin 100 Mg Capsule) 100 mg PO BID [facility] Gemfibrozil (Gemfibrozil 600 Mg Tablet) 600 mg PO BIDAC [facility] Last Admin: 12/22/24 15:21 Dose: 600 mg Documented By: ASHLEE Hydromorphone HCl (Hydromorphone Hcl 1 Mg/Ml Syringe) 1 mg IVPUSH Q2H PRN; Protocol PRN Reason: Pain, Moderate(Pain Scale 4-6) Hydromorphone HCl (Hydromorphone Hcl 2 Mg/Ml Vial) 2 mg IVPUSH Q3H PRN; Protocol PRN Reason: Pain, Severe (Pain Scale 7-10) Piperacillin Sod/Tazobactam (Sod 3.375 gm/ Sodium Chloride) 50 mls @ 100 mls/hr IV Q6H [facility] Last Admin: 12/22/24 15:23 Dose: 100 mls/hr Documented By: ASHLEE Nutrition (Parenteral) (Parenteral Nutrition) 2,040 mls @ 85 mls/hr IV .Q24H [facility]; Protocol Stop: 12/22/24 20:59 Last Admin: 12/21/24 21:33 Dose: 85 mls/hr Documented By: VIOLAQC Nutrition (Parenteral) (Parenteral Nutrition) 2,040 mls @ 85 mls/hr IV .Q24H [facility]; Protocol Stop: 12/23/24 20:59 Insulin Glargine (Insulin Glargine,Hum.Rec.Anlog 100 Unit/Ml 10 Ml Vial) 15 unit SUBCUT BID [facility] Last Admin: 12/22/24 08:02 Dose: 15 unit Documented By: ASHLEE Insulin Human Lispro (Insulin Lispro 100 Unit/Ml 3 Ml Vial) 0 unit SUBCUT QIDACHS [facility]; Protocol Last Admin: 12/22/24 16:19 Dose: 4 unit Documented By: ASHLEE Nitroglycerin (Nitroglycerin 0.4 Mg Tab.Subl) 0.4 mg SUBLINGUAL Q5MX3 PRN PRN Reason: Chest Pain Last Admin: 12/12/24 23:46 Dose: 0.4 mg Documented By: CARMEN Omeprazole (Omeprazole 20 Mg Capsule.) 20 mg PO DAILY@0630 [facility] Last Admin: 12/22/24 06:03 Dose: 20 mg Documented By: ABRAN Ondansetron HCl (Ondansetron Hcl 4 Mg/2 Ml Vial) 4 mg IVPUSH Q6H PRN PRN Reason: Nausea and Vomiting Last Admin: 12/19/24 19:43 Dose: 4 mg Documented By: KALYAN Pharmacy Consult (Consult Rx Parenteral Nutrition Ordering) 1 each MISCELLANE DAILY PRN PRN Reason: Consult order Pharmacy Consult (Consult Rx Vancomycin Dosing) 1 each MISCELLANE DAILY PRN PRN Reason: Consult order Polyethylene Glycol (Polyethylene Glycol 3350 17 Gm Powd.Pack) 17 gm PO DAILY PRN PRN Reason: Constipation Last Admin: 12/16/24 19:40 Dose: 17 gm Documented By: ROSITA-WANG Sodium Chloride (0.9 % Sodium Chloride Flush 3 Ml Syringe) 3 ml IVFLUSH [facility] Last Admin: 12/22/24 08:04 Dose: 3 ml Documented By: ASHLEE Sodium Chloride (0.9 % Sodium Chloride Flush 10 Ml Syringe) [facility] Last Admin: 12/22/24 15:21 Dose: Not Given Documented By: ASHLEE Non-Admin Reason: no dischsrge Sucralfate (Sucralfate 1 Gm Tablet) 1 gm PO QIDACHS [facility] Labs 12/22/24 06:14 12/22/24 06:14 Labs: Laboratory Results - last 24 hr 12/21/24 12/22/24 12/22/24 20:14 06:14 07:17 MCV 80.9 MCH 25.6 L MCHC 31.7 RDW 14.8 Plt Count 550 H D MPV 9.2 L Absolute Nucleated RBC 0.000 Nucleated RBC % (auto) 0.0 Hold Purple Top SEE NOTE Anion Gap 13 Estim Creat Clear Calc 212.1 Estimated GFR > 60 POC Glucose 115 151 H Random Glucose 152 H Calcium 8.6 Phosphorus 4.4 Magnesium 1.8 Albumin 2.8 L 12/22/24 12/22/24 11:19 16:07 MCV MCH MCHC RDW Plt Count MPV Absolute Nucleated RBC Nucleated RBC % (auto) Hold Purple Top Anion Gap Estim Creat Clear Calc Estimated GFR POC Glucose 159 H 179 H Random Glucose Calcium Phosphorus Magnesium Albumin Microbiology Microbiology Results: Microbiology 12/16/24 08:51 Blood Culture - Final Blood - Venous No growth after 5 days. 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 of note had stroke alert 12/08/24 for facial parasthesias SIRS due to hypertriglyceridemia induced acute pancreatitis On statin and gemfibrozil, triglycerides have decreased from [address] abd 12/12/24 with phlegmon and free fluid, started zosyn, seen by gi and surgery persistent pain, still requiring high dose narcotics on tpn via picc advanced to solids but only tolerating small amounts. DC TPN once tolerating enough reguar food d/w GI, MRI done today given persistent pain, unfortunately the quality is poor and limited by respiratory motion. ?of necrosis vs chronic changes. per GI less likely necrosis given resolution of white count and no fever; recommended PPI b.i.d., Carafate, start gabapentin and consider EGD. possible pneumonia MRSA swab negative discontinued vancomycin, On Zosyn since 12/14, dc after 10 days on room air blood cultures negative DKA Resolved, continue basal bolus insulin Episode of paresthesias with twitching Neuro appreciated, unlikely CVA/TIA Metabolic syndrome Weight loss recommended Glomus jugulare tumor Continue to follow up outpatient with rad/onc, Dr. Iglesias DVT prophylaxis with Lovenox Full Code reason for continued hospitalization: awaiting po tolerance, requiring frequent doses of IV narcotics Quality Stroke Does the patient have a stroke diagnosis?: No VTE Prior VTE?: No VTE Risk Level:: Medical - moderate - high VTE Device Contraindication: N/A - Device Ordered VTE Drug Contraindication: N/A - Med Ordered
[2024-12-22 16:23] LABS: Alanine Aminotransferase 43 U/L (0-40); Alkaline Phosphatase 145 U/L (39-117); Aspartate Amino Transferase 154 U/L (5-37); Bilirubin Direct 0.5 mg/dL (0.0-0.5); Bilirubin Total 0.9 mg/dL (0.0-1.0); C Reactive Protein 15.62 mg/dL (< or = 0.50); Lipase 263 U/L (8-78); Total Protein 7.2 g/dL (6.5-8.0)
[2024-12-22] MEDS: Sucralfate 1 GM TABLET PO ×2 (16:31→21:23)
--- NOTE | 2024-12-22 17:52 | PC.NURSE ---
Patient c/o SOB ,lungs clear,sat 97% on RA GRAHAM Miller notified
[2024-12-22 20:33] LABS: Glucose, Whole Blood 144 mg/dL (60-115)
[2024-12-22] MEDS: Atorvastatin Calcium 80 MG TABLET PO (21:23)
[2024-12-22] MEDS: Gabapentin 100 MG CAPSULE PO (21:23)
[2024-12-22] MEDS: Parenteral Nutrition 2,040 ML 85 ML IV (21:57)
[2024-12-23] MEDS: HYDROmorphone HCl 2 MG/ML VIAL IVPUSH ×7 (02:37→23:56)
[2024-12-23] MEDS: Piperacillin Sodium/Tazobactam 3.375 GM in 0.9 % Sodium Chloride 50 ML IV ×4 (03:27→22:07)
[2024-12-23 04:00] VITALS: BP 136/74; PULSE 88; RESP 18; TEMP 36.1; O2SAT 96
[2024-12-23] MEDS: Omeprazole 20 MG CAPSULE.DR PO (05:53)
[2024-12-23 06:06] LABS: Albumin Level 2.8 g/dL (3.5-5.0); Anion Gap 15 (12-20); Blood Urea Nitrogen 12 mg/dL (9-16); Calcium 9.5 mg/dL (8.4-10.2); Carbon Dioxide 23 mmol/L (22-29); Chloride 102 mmol/L (96-108); Creatinine Clr Calc Pharmacy 223.4; Estimated Glomerular Filt Rate > 60; Glucose Random 147 mg/dL (60-115); Magnesium 1.7 mg/dL (1.6-2.6); Phosphorus 4.5 mg/dL (2.7-4.5); Potassium 4.3 mmol/L (3.3-5.1); Sodium 136 mmol/L (135-145)
[2024-12-23 06:57] VITALS: BP 143/96; PULSE 83; RESP 15; TEMP 36.7; O2SAT 93
[2024-12-23 07:10] LABS: Glucose, Whole Blood 138 mg/dL (60-115)
[2024-12-23] MEDS: gemfibroziL 600 MG TABLET PO ×2 (08:08→16:51)
[2024-12-23] MEDS: Insulin Lispro 100 UNIT/ML 3 ML VIAL SUBCUT ×4 (08:08→21:01)
[2024-12-23] MEDS: Enoxaparin Sodium 40 MG/0.4 ML SYRINGE SUBCUT (08:08)
[2024-12-23] MEDS: Gabapentin 100 MG CAPSULE PO ×2 (08:08→21:01)
[2024-12-23] MEDS: 0.9 % Sodium Chloride Flush 10 ML SYRINGE IVFLUSH (08:09)
[2024-12-23] MEDS: Insulin Glargine,Hum.rec.anlog 100 UNIT/ML 10 ML VIAL 15 UNIT SUBCUT ×2 (08:09→21:01)
[2024-12-23] MEDS: Sucralfate 1 GM TABLET PO ×4 (08:11→21:01)
--- NOTE | 2024-12-23 09:23 | P.PNIM_ITS ---
Subjective Subjective Date of Service: 12/23/24 Interval History: seen and examined this morning follow up for pancreatitis History obtained with the assistance of a professor of latin american studies as well as his significant other at the bedside reporting pain with eating, having liquid stools. no fever Review of Systems Review of Systems: Yes all other systems are reviewed and are negative Constitutional Constitutional: Denies chills and Denies fever(s) Gastrointestinal Gastrointestinal: Reports abdominal pain, Denies nausea and Denies vomiting Physical Exam 2 Vital Signs: Vital Signs: Last Vital Signs Temp 98.1 F 12/23/24 06:57 Pulse 83 12/23/24 06:57 Resp 15 12/23/24 06:57 BP 143/96 H 12/23/24 06:57 Pulse Ox 93 12/23/24 06:57 O2 Del Method Room Air 12/23/24 06:57 O2 Flow Rate 1.5 12/17/24 15:31 BMI result Body Mass Index 39.3 Appearing in no acute distress lung sounds are clear to auscultation heart regular rate rhythm, clear S1, S2 positive bowel sounds, abdomen is soft, nontender neuro patient is alert x3, no focal deficits Objective Data Active Medications Acetaminophen (Acetaminophen 325 Mg Tablet) 650 mg PO Q4H PRN PRN Reason: Pain, Mild 1-3,fever,headache Last Admin: 12/18/24 05:22 Dose: 650 mg Documented By: KALYAN Atorvastatin Calcium (Atorvastatin Calcium 80 Mg Tablet) 80 mg PO BEDTIME [facility] Last Admin: 12/22/24 21:23 Dose: 80 mg Documented By: MARGRET Dextrose (Dextrose 50 % 25 Gm/50 Ml Syringe) 25 gm IVPUSH Q30M PRN PRN Reason: BG < 70 Docusate Sodium (Docusate Sodium 100 Mg Capsule) 100 mg PO BID PRN PRN Reason: Constipation Last Admin: 12/17/24 09:52 Dose: 100 mg Documented By: JENNA Enoxaparin Sodium (Enoxaparin Sodium 40 Mg/0.4 Ml Syringe) 40 mg SUBCUT Q24H [facility] Last Admin: 12/23/24 08:08 Dose: 40 mg Documented By: XIOMARA Gabapentin (Gabapentin 100 Mg Capsule) 100 mg PO BID [facility] Last Admin: 12/23/24 08:08 Dose: 100 mg Documented By: XIOMARA Gemfibrozil (Gemfibrozil 600 Mg Tablet) 600 mg PO BIDAC [facility] Last Admin: 12/23/24 08:08 Dose: 600 mg Documented By: XIOMARA Hydromorphone HCl (Hydromorphone Hcl 2 Mg/Ml Vial) 2 mg IVPUSH Q3H PRN; Protocol PRN Reason: Pain, Severe (Pain Scale 7-10) Last Admin: 12/23/24 09:11 Dose: 2 mg Documented By: XIOMARA Hydromorphone HCl (Hydromorphone Hcl 1 Mg/Ml Syringe) 0.5 mg IVPUSH Q2H PRN; Protocol PRN Reason: Pain, Moderate(Pain Scale 4-6) Piperacillin Sod/Tazobactam (Sod 3.375 gm/ Sodium Chloride) 50 mls @ 100 mls/hr IV Q6H [facility] Last Infusion: 12/23/24 04:00 Dose: Infused Documented By: MARGRET Nutrition (Parenteral) (Parenteral Nutrition) 2,040 mls @ 85 mls/hr IV .Q24H [facility]; Protocol Stop: 12/23/24 20:59 Last Admin: 12/22/24 21:57 Dose: 85 mls/hr Documented By: MARGRET Insulin Glargine (Insulin Glargine,Hum.Rec.Anlog 100 Unit/Ml 10 Ml Vial) 15 unit SUBCUT BID [facility] Last Admin: 12/23/24 08:09 Dose: 15 unit Documented By: XIOMARA Insulin Human Lispro (Insulin Lispro 100 Unit/Ml 3 Ml Vial) 0 unit SUBCUT QIDACHS [facility]; Protocol Last Admin: 12/23/24 08:08 Dose: 2 unit Documented By: XIOMARA Nitroglycerin (Nitroglycerin 0.4 Mg Tab.Subl) 0.4 mg SUBLINGUAL Q5MX3 PRN PRN Reason: Chest Pain Last Admin: 12/12/24 23:46 Dose: 0.4 mg Documented By: CARMEN Omeprazole (Omeprazole 20 Mg Capsule.Dr) 20 mg PO DAILY@0630 [facility] Last Admin: 12/23/24 05:53 Dose: 20 mg Documented By: MARGRET Ondansetron HCl (Ondansetron Hcl 4 Mg/2 Ml Vial) 4 mg IVPUSH Q6H PRN PRN Reason: Nausea and Vomiting Last Admin: 12/19/24 19:43 Dose: 4 mg Documented By: KALYAN Pharmacy Consult (Consult Rx Parenteral Nutrition Ordering) 1 each MISCELLANE DAILY PRN PRN Reason: Consult order Pharmacy Consult (Consult Rx Vancomycin Dosing) 1 each MISCELLANE DAILY PRN PRN Reason: Consult order Polyethylene Glycol (Polyethylene Glycol 3350 17 Gm Powd.Pack) 17 gm PO DAILY PRN PRN Reason: Constipation Last Admin: 12/16/24 19:40 Dose: 17 gm Documented By: AIDEN Sodium Chloride (0.9 % Sodium Chloride Flush 3 Ml Syringe) 3 ml IVFLUSH [facility] Last Admin: 12/23/24 08:11 Dose: Not Given Documented By: XIOMARA Non-Admin Reason: PICC Sodium Chloride (0.9 % Sodium Chloride Flush 10 Ml Syringe) [facility] Last Admin: 12/23/24 08:09 Dose: 10 ml Documented By: XIOMARA Sucralfate (Sucralfate 1 Gm Tablet) 1 gm PO QIDACHS [facility] Last Admin: 12/23/24 08:11 Dose: 1 gm Documented By: XIOMARA Labs 12/22/24 06:14 12/23/24 05:39 Labs: Laboratory Results - last 24 hr 12/22/24 12/22/24 12/22/24 06:14 11:19 16:07 MCV 80.9 MCH 25.6 L MCHC 31.7 RDW 14.8 Plt Count 550 H D MPV 9.2 L Absolute Nucleated RBC 0.000 Nucleated RBC % (auto) 0.0 Anion Gap Estim Creat Clear Calc Estimated GFR POC Glucose 159 H 179 H Random Glucose Calcium Phosphorus Magnesium Total Bilirubin 0.9 Direct Bilirubin 0.5 AST 154 H ALT 43 H Alkaline Phosphatase 145 H C-Reactive Protein 15.62 H Total Protein 7.2 Albumin 2.8 L Lipase 263 H 12/22/24 12/23/24 12/23/24 20:24 05:39 07:06 MCV MCH MCHC RDW Plt Count MPV Absolute Nucleated RBC Nucleated RBC % (auto) Anion Gap 15 Estim Creat Clear Calc 223.4 Estimated GFR > 60 POC Glucose 144 H 138 H Random Glucose 147 H Calcium 9.5 D Phosphorus 4.5 Magnesium 1.7 Total Bilirubin Direct Bilirubin AST ALT Alkaline Phosphatase C-Reactive Protein Total Protein Albumin 2.8 L Lipase Assessment and Plan (1) Acute pancreatitis: Status: Acute Plan 29M PMH metabolic syndrome with morbid obesity, uncontrolled DM, HTN, hypertriglyceridemia with history of pancreatitis, NAFLD, 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 of note had stroke alert 12/08/24 for facial parasthesias SIRS due to hypertriglyceridemia induced acute pancreatitis On statin and gemfibrozil, triglycerides have decreased from [address] abd 12/12/24 with phlegmon and free fluid, started zosyn, seen by gi and surgery persistent pain, still requiring high dose narcotics on tpn via picc advanced to solids but only tolerating small amounts. DC TPN once tolerating enough reguar food d/w GI, MRI done today given persistent pain, unfortunately the quality is poor and limited by respiratory motion. ?of necrosis vs chronic changes. per GI less likely necrosis given resolution of white count and no fever; recommended PPI b.i.d., Carafate, start gabapentin reconsulted GI for possible EGD. Possible pneumonia MRSA swab negative discontinued vancomycin, On Zosyn since 12/14, dc after 10 days on room air blood cultures negative DKA Resolved, continue basal bolus insulin Episode of paresthesias with twitching Neuro appreciated, unlikely CVA/TIA Metabolic syndrome Weight loss recommended Glomus jugulare tumor Continue to follow up outpatient with rad/onc, Dr. Iglesias DVT prophylaxis with Lovenox Full Code reason for continued hospitalization: awaiting po tolerance, requiring frequent doses of IV narcotics Quality Stroke Does the patient have a stroke diagnosis?: No VTE Prior VTE?: No VTE Risk Level:: Medical - moderate - high VTE Device Contraindication: N/A - Device Ordered VTE Drug Contraindication: N/A - Med Ordered
--- NOTE | 2024-12-23 09:48 | MHC.CLN ---
F/U DIET RX: DIABETIC 1800 KCALS, LOW FAT, BLAND, LACTOSE CONTROLLED. REPORTS PAIN WITH EATING. CONTINUES WITH PPN UNTIL ABLE TO TOLERATE ADEQUATE PO. REVIEWED LABS. COMMUNICATED WITH PHARMACY. RECOMMEND CONTINUE TPN AT 85ML PER HOUR TO PROVIDE 1448 KCALS (16.3 KCALS/KG IBW), 102 G PROTEIN (1.1 G/KG IBW), 306 G DEXTROSE. HOLD LIPIDS AT THIS TIME. REPLETE LYTES NEEDED. GOAL TO DECREASE TPN PO IMPROVES.
[2024-12-23 10:52] LABS: Triglycerides 190 mg/dL (<150)
[2024-12-23 11:11] LABS: Glucose, Whole Blood 145 mg/dL (60-115)
--- NOTE | 2024-12-23 13:28 | MHC.CM.PN ---
EMR REVIEWED AND PER MD ROUNDS, PT IS NOT YET MEDICALLY CLEARED FOR DC (ADVANCING DIET SLOWLY, CONTINUES ON PPN, PAIN) CMWILLCONTINUE TO FOLLOW FOR ANY CHANGE TO DC PLAN/NEEDS.
[2024-12-23 15:08] VITALS: BP 127/66; PULSE 80; RESP 14; O2SAT 94
--- NOTE | 2024-12-23 16:26 | P.PNGI_ITS ---
Subjective Subjective Date of Service: 12/23/24 Interval History: History from thepatient with his significant other providing interpretation. His mother is present as well. Course reviewed. Patient still having diffuse upper abdominal pain, especially after eating. However, he reports that this is definitely much better than when was first admitted. He denies vomiting and he has been afebrile. Having some loose stools and passing urine without any difficulties. Critical Care Time (minutes): 0 Physical Exam 2 Vital Signs: Vital Signs: Last Vital Signs Temp 98.1 F 12/23/24 06:57 Pulse 80 12/23/24 15:08 Resp 14 12/23/24 15:08 BP 127/66 12/23/24 15:08 Pulse Ox 94 12/23/24 15:08 O2 Del Method Room Air 12/23/24 15:08 O2 Flow Rate 1.5 12/17/24 15:31 BMI result Body Mass Index 39.3 Const: Other: He appears well and comfortable. He does not appear toxic at all. General: cooperative, healthy appearing, comfortable, no acute distress, well developed, alert and awake HEENT: Mouth: moist mucous membranes Eyes: Sclerae: sclerae normal (Anicteric) GI: Other: Abdomen-soft, nondistended, +BS, and with mild diffuse upper abdominal tenderness to palpation but no mass/rebound/guarding Skin: Other: Warm and dry Objective Data Labs 12/22/24 06:14 12/23/24 05:39 Labs: Laboratory Results - last 24 hr 12/22/24 12/23/24 12/23/24 20:24 05:39 07:06 Sodium 136 Potassium 4.3 Chloride 102 Carbon Dioxide 23 Anion Gap 15 BUN 12 Creatinine 0.75 Estim Creat Clear Calc 223.4 Estimated GFR > 60 POC Glucose 144 H 138 H Random Glucose 147 H Calcium 9.5 D Phosphorus 4.5 Magnesium 1.7 Albumin 2.8 L Triglycerides 190 H 12/23/24 11:08 Sodium Potassium Chloride Carbon Dioxide Anion Gap BUN Creatinine Estim Creat Clear Calc Estimated GFR POC Glucose 145 H Random Glucose Calcium Phosphorus Magnesium Albumin Triglycerides Microbiology Microbiology Results: Microbiology 12/16/24 08:51 Blood - Venous Blood Culture - Final No growth after 5 days. 12/16/24 08:51 Blood - Venous Blood Culture - Final No growth after 5 days. 12/09/24 00:16 Blood - Venous Blood Culture - Final No growth after 5 days. 12/08/24 18:00 Blood - Venous Blood Culture - Final No growth after 5 days. Procedures Date of Service Date of Service: 12/23/24 Progress Note: A&P Assessment and plan (1) Acute pancreatitis: Status: Acute Assessment and Plan: Imp: Slowly resolving acute pancreatitis secondary to hypertriglyceridemia. He does not appear toxic but nonetheless is continuing with some chronic pain that becomes exacerbated by eating. His MRI/MRCP was nondiagnostic over the weekend. His abdominal exam is somewhat tender but it's not worrisome based on the exam. He does have an elevated platelet count and CRP. Rec: Repeat CT with IV contrast today or tomorrow to reassess for any component of necrosis/abscess/pseudocyst, etc. F/U labs in AM. If the CT just shows some resolving pancreatitis with some inflammation and no other worrisome findings we can then continue to manage things conservatively here at [facility]. If the CT shows anything more ominous with necrosis or signs of infection he would then need transfer to a tertiary facility. Will also check stool for C.diff given the report of some loose stools since being her. D/W patient and his family in detail. They are comfortable with this plan. Thanks Time Spent With Patient Time: Total time managing care of this patient today ____ minutes. Quality Stroke Does the patient have a stroke diagnosis?: No VTE Prior VTE?: No VTE Risk Level:: Medical - moderate - high VTE Device Contraindication: N/A - Device Ordered VTE Drug Contraindication: N/A - Med Ordered
[2024-12-23 16:40] LABS: Glucose, Whole Blood 152 mg/dL (60-115)
[2024-12-23] MEDS: iohexoL 350 MG/ML 100 ML INFUS..BTL IV (19:26)
[2024-12-23 20:00] VITALS: BP 143/76; PULSE 80; RESP 18; TEMP 36.3; O2SAT 95
[2024-12-23 20:24] LABS: Glucose, Whole Blood 120 mg/dL (60-115)
[2024-12-23] MEDS: Atorvastatin Calcium 80 MG TABLET PO (21:01)
[2024-12-23] MEDS: Parenteral Nutrition 2,040 ML 85 ML IV (21:20)
[2024-12-23] MEDS: 0.9 % Sodium Chloride Flush 3 ML SYRINGE IVFLUSH (22:11)
[2024-12-24 03:12] VITALS: BP 131/64; PULSE 81; RESP 18; TEMP 36.1; O2SAT 97
[2024-12-24] MEDS: HYDROmorphone HCl 2 MG/ML VIAL IVPUSH ×5 (03:14→20:58)
[2024-12-24] MEDS: Piperacillin Sodium/Tazobactam 3.375 GM in 0.9 % Sodium Chloride 50 ML IV (03:18)
[2024-12-24] MEDS: Omeprazole 20 MG CAPSULE.DR PO (05:37)
[2024-12-24 05:59] VITALS: BMI 37.4
[2024-12-24 06:20] LABS: MANUAL DIFF FLAG NO
[2024-12-24 06:24] LABS: Basophils Absolute Auto 0.1 X10*3/uL (0.0-0.2); Basophils Percent Auto 0.6 % (0-2); Eosinophils Absolute Auto 0.3 X10*3/uL (0.0-0.4); Eosinophils Percent Auto 3.3 % (0-4); Hematocrit 29.9 % (42.0-52.0); Hemoglobin 9.4 g/dl (14.0-18.0); Imm Gran Abs Auto 0.22 X10*3/uL (0.00-0.03); Imm Gran Pct Auto 2.3 % (0.0-0.4); Lymphocytes Absolute Auto 1.2 X10*3/uL (1.2-4.9); Lymphocytes Percent Auto 12.3 % (20-40); Mean Corpuscular HGB Conc 31.4 g/dl (31.0-36.0); Mean Corpuscular Hemoglobin 25.1 pg (27.0-33.0); Mean Corpuscular Volume 79.7 fL (80.0-98.0); Mean Platelet Volume 9.1 fL (9.4-12.4); Monocytes Absolute Auto 1.2 X10*3/uL (0.1-1.2); Monocytes Percent Auto 12.3 % (2-11); Neutrophils Absolute Auto 6.6 x10*3/uL (2.0-8.3); Neutrophils Percent Auto 69.2 % (45-73); Platelet Count 592 X10*3/uL (160-400); Red Blood Count 3.75 X10*6/uL (4.60-5.80); Red Cell Distribution Width 14.6 % (11.0-16.0); White Blood Count 9.6 X10*3/uL (4.8-10.8)
[2024-12-24 06:36] LABS: INTERNATIONAL NORM RATIO 1.5 (0.9-1.1)
[2024-12-24 06:56] VITALS: BP 133/78; PULSE 73; RESP 16; TEMP 36.6; O2SAT 94
[2024-12-24 07:07] LABS: Glucose, Whole Blood 140 mg/dL (60-115)
[2024-12-24 07:10] LABS: Alanine Aminotransferase 53 U/L (0-40); Alkaline Phosphatase 154 U/L (39-117); Anion Gap 13 (12-20); Aspartate Amino Transferase 133 U/L (5-37); Bilirubin Direct 0.4 mg/dL (0.0-0.5); Bilirubin Total 0.9 mg/dL (0.0-1.0); Blood Urea Nitrogen 13 mg/dL (9-16); Calcium 8.9 mg/dL (8.4-10.2); Carbon Dioxide 24 mmol/L (22-29); Chloride 103 mmol/L (96-108); Creatinine Clr Calc Pharmacy 214.7; Estimated Glomerular Filt Rate > 60; Glucose Random 114 mg/dL (60-115); Lipase 237 U/L (8-78); Magnesium 1.7 mg/dL (1.6-2.6); Potassium 4.3 mmol/L (3.3-5.1); Sodium 136 mmol/L (135-145); Total Protein 7.7 g/dL (6.5-8.0)
[2024-12-24 07:19] LABS: Phosphorus 5.4 mg/dL (2.7-4.5)
[2024-12-24] MEDS: Enoxaparin Sodium 40 MG/0.4 ML SYRINGE SUBCUT (08:10)
[2024-12-24] MEDS: Insulin Lispro 100 UNIT/ML 3 ML VIAL SUBCUT ×3 (08:11→21:49)
[2024-12-24] MEDS: Sucralfate 1 GM TABLET PO ×4 (08:11→21:52)
[2024-12-24] MEDS: gemfibroziL 600 MG TABLET PO ×2 (08:11→15:56)
[2024-12-24] MEDS: Gabapentin 100 MG CAPSULE PO ×2 (08:11→21:00)
[2024-12-24] MEDS: Insulin Glargine,Hum.rec.anlog 100 UNIT/ML 10 ML VIAL 15 UNIT SUBCUT ×2 (08:11→21:49)
[2024-12-24] MEDS: 0.9 % Sodium Chloride Flush 10 ML SYRINGE IVFLUSH (08:14)
--- NOTE | 2024-12-24 08:14 | P.PNIM_ITS ---
Subjective Subjective Date of Service: 12/24/24 Interval History: seen and examined this morning follow up for pancreatitis reporting pain with eating, having liquid stools. no fever Review of Systems Review of Systems: Yes all other systems are reviewed and are negative Constitutional Constitutional: Denies chills and Denies fever(s) Gastrointestinal Gastrointestinal: Reports abdominal pain, Denies nausea and Denies vomiting Physical Exam 2 Vital Signs: Vital Signs: Last Vital Signs Temp 97.8 F 12/24/24 06:56 Pulse 73 12/24/24 06:56 Resp 16 12/24/24 06:56 BP 133/78 12/24/24 06:56 Pulse Ox 94 12/24/24 06:56 O2 Del Method Room Air 12/24/24 06:56 O2 Flow Rate 1.5 12/17/24 15:31 BMI result Body Mass Index 37.4 Appearing in no acute distress lung sounds are clear to auscultation heart regular rate rhythm, clear S1, S2 positive bowel sounds, abdomen is soft, nontender neuro patient is alert x3, no focal deficits Objective Data Active Medications Acetaminophen (Acetaminophen 325 Mg Tablet) 650 mg PO Q4H PRN PRN Reason: Pain, Mild 1-3,fever,headache Last Admin: 12/18/24 05:22 Dose: 650 mg Documented By: KALYAN Atorvastatin Calcium (Atorvastatin Calcium 80 Mg Tablet) 80 mg PO BEDTIME [facility] Last Admin: 12/23/24 21:01 Dose: 80 mg Documented By: MARGRET Dextrose (Dextrose 50 % 25 Gm/50 Ml Syringe) 25 gm IVPUSH Q30M PRN PRN Reason: BG < 70 Docusate Sodium (Docusate Sodium 100 Mg Capsule) 100 mg PO BID PRN PRN Reason: Constipation Last Admin: 12/17/24 09:52 Dose: 100 mg Documented By: JENNA Enoxaparin Sodium (Enoxaparin Sodium 40 Mg/0.4 Ml Syringe) 40 mg SUBCUT Q24H [facility] Last Admin: 12/23/24 08:08 Dose: 40 mg Documented By: XIOMARA Gabapentin (Gabapentin 100 Mg Capsule) 100 mg PO BID [facility] Last Admin: 12/23/24 21:01 Dose: 100 mg Documented By: MARGRET [facility]fib[facility] ([facility] 600 Mg Tablet) [facility] Last Admin: 12/23/24 16:51 Dose: 600 mg Documented By: XIOMARA Hydromorphone HCl (Hydromorphone Hcl 2 Mg/Ml Vial) 2 mg IVPUSH Q3H PRN; Protocol PRN Reason: Pain, Severe (Pain Scale 7-10) Last Admin: 12/24/24 06:09 Dose: 2 mg Documented By: MARGRET Hydromorphone HCl (Hydromorphone Hcl 1 Mg/Ml Syringe) 0.5 mg IVPUSH Q2H PRN; Protocol PRN Reason: Pain, Moderate(Pain Scale 4-6) Piperacillin Sod/Tazobactam (Sod 3.375 gm/ Sodium Chloride) 50 mls @ 100 mls/hr IV Q6H [facility] Last Infusion: 12/24/24 03:54 Dose: Infused Documented By: MARGRET Nutrition (Parenteral) (Parenteral Nutrition) 2,040 mls @ 85 mls/hr IV .Q24H [facility]; Protocol Stop: 12/24/24 20:59 Last Admin: 12/23/24 21:20 Dose: 85 mls/hr Documented By: MARGRET Insulin Glargine (Insulin Glargine,Hum.Rec.Anlog 100 Unit/Ml 10 Ml Vial) 15 unit SUBCUT BID [facility] Last Admin: 12/23/24 21:01 Dose: 15 unit Documented By: MARGRET Insulin Human Lispro (Insulin Lispro 100 Unit/Ml 3 Ml Vial) 0 unit SUBCUT QIDACHS [facility]; Protocol Last Admin: 12/23/24 21:01 Dose: 2 unit Documented By: MARGRET Nitroglycerin (Nitroglycerin 0.4 Mg Tab.Subl) 0.4 mg SUBLINGUAL Q5MX3 PRN PRN Reason: Chest Pain Last Admin: 12/12/24 23:46 Dose: 0.4 mg Documented By: CARMEN Omeprazole (Omeprazole 20 Mg Capsule.Dr) 20 mg PO DAILY@0630 [facility] Last Admin: 12/24/24 05:37 Dose: 20 mg Documented By: HARITHA Ondansetron HCl (Ondansetron Hcl 4 Mg/2 Ml Vial) 4 mg IVPUSH Q6H PRN PRN Reason: Nausea and Vomiting Last Admin: 12/19/24 19:43 Dose: 4 mg Documented By: KALYAN Pharmacy Consult (Consult Rx Parenteral Nutrition Ordering) 1 each MISCELLANE DAILY PRN PRN Reason: Consult order Pharmacy Consult (Consult Rx Vancomycin Dosing) 1 each MISCELLANE DAILY PRN PRN Reason: Consult order Polyethylene Glycol (Polyethylene Glycol 3350 17 Gm Powd.Pack) 17 gm PO DAILY PRN PRN Reason: Constipation Last Admin: 12/16/24 19:40 Dose: 17 gm Documented By: AIDEN Sodium Chloride (0.9 % Sodium Chloride Flush 3 Ml Syringe) 3 ml IVFLUSH QSHIFT [facility] Last Admin: 12/23/24 22:11 Dose: 3 ml Documented By: MARGRET Sodium Chloride (0.9 % Sodium Chloride Flush 10 Ml Syringe) 10 ml IVFLUSH QSHIFT [facility] Last Admin: 12/23/24 22:45 Dose: Not Given Documented By: MARGRET Non-Admin Reason: IV Running Sucralfate (Sucralfate 1 Gm Tablet) 1 gm PO QIDACHS [facility] Last Admin: 12/23/24 21:01 Dose: 1 gm Documented By: MARGRET Labs 12/24/24 06:01 12/24/24 06:01 Labs: Laboratory Results - last 24 hr 12/23/24 12/23/24 12/23/24 05:39 11:08 16:36 MCV MCH MCHC RDW Plt Count MPV Immature Gran % (Auto) Neut % (Auto) Lymph % (Auto) [place] % (Auto) Eos % (Auto) Baso % (Auto) Lymph # (Auto) [place] # (Auto) Eos # (Auto) Baso # (Auto) Abs Immat Gran (auto) Absolute Neuts (auto) Absolute Nucleated RBC Nucleated RBC % (auto) PT INR Anion Gap Estim Creat Clear Calc Estimated GFR POC Glucose 145 H 152 H Random Glucose Calcium Phosphorus Magnesium Total Bilirubin Direct Bilirubin AST ALT Alkaline Phosphatase Total Protein Albumin Triglycerides 190 H Lipase 12/23/24 12/24/24 12/24/24 20:18 06:01 07:03 MCV 79.7 L MCH 25.1 L MCHC 31.4 RDW 14.6 Plt Count 592 H MPV 9.1 L Immature Gran % (Auto) 2.3 H Neut % (Auto) 69.2 Lymph % (Auto) 12.3 L [place] % (Auto) 12.3 H Eos % (Auto) 3.3 Baso % (Auto) 0.6 Lymph # (Auto) 1.2 [place] # (Auto) 1.2 Eos # (Auto) 0.3 Baso # (Auto) 0.1 Abs Immat Gran (auto) 0.22 H Absolute Neuts (auto) 6.6 Absolute Nucleated RBC 0.000 Nucleated RBC % (auto) 0.0 PT 17.0 H INR 1.5 H Anion Gap 13 Estim Creat Clear Calc 214.7 Estimated GFR > 60 POC Glucose 120 H 140 H Random Glucose 114 Calcium 8.9 D Phosphorus 5.4 H Magnesium 1.7 Total Bilirubin 0.9 Direct Bilirubin 0.4 AST 133 H ALT 53 H Alkaline Phosphatase 154 H Total Protein 7.7 Albumin 3.0 L Triglycerides Lipase 237 H Assessment and Plan (1) Acute pancreatitis: Status: Acute Plan 29M PMH metabolic syndrome with morbid obesity, uncontrolled DM, HTN, hypertriglyceridemia with history of pancreatitis, NAFLD, 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 of note had stroke alert 12/08/24 for facial parasthesias SIRS due to hypertriglyceridemia induced acute pancreatitis On statin and gemfibrozil, triglycerides have decreased from 5000 to 280 on tpn via picc advanced to solids but only tolerating small amounts. DC TPN once tolerating enough regular food recommended PPI b.i.d., Carafate, start gabapentin persistent pain, still requiring high dose narcotics, discussed with GI> abd CT with contrast showing improvement, no necrosis wean down IV narcotics PT eval. ambulate CAP Pneumonia MRSA swab negative discontinued vancomycin, s/p Zosyn total 10 days on room air blood cultures negative DKA Resolved, continue basal bolus insulin Episode of paresthesias with twitching Seen by Neuro>unlikely CVA/TIA Metabolic syndrome/obesity. BMI 37.4 Weight loss recommended Glomus jugulare tumor Continue to follow up outpatient with rad/onc, Dr. Iglesias DVT prophylaxis with Lovenox Full Code Quality Stroke Does the patient have a stroke diagnosis?: No VTE Prior VTE?: No VTE Risk Level:: Medical - moderate - high VTE Device Contraindication: N/A - Device Ordered VTE Drug Contraindication: N/A - Med Ordered
[2024-12-24 09:37] VITALS: BP 133/78; PULSE 73; O2SAT 94
[2024-12-24] MEDS: oxyCODONE HCl Immed Release 5 MG TABLET 10 MG PO (09:44)
[2024-12-24 11:17] LABS: Glucose, Whole Blood 160 mg/dL (60-115)
--- NOTE | 2024-12-24 11:18 | MHC.CLN ---
F/U DIET DOWNGRADED TO F/L DUE TO PAIN WITH EATING CONTINUES WITH PPN UNTIL ABLE TO TOLERATE ADEQUATE PO REVIEWED LABS COMMUNICATED WITH PHARMACY CONTINUE TPN AT 85ML PER HOUR PROVIDES 1448 KCALS (16.3 KCALS/KG IBW), 102 G PROTEIN (1.1 G/KG IBW), 306 G DEXTROSE REPLETE LYTES NEEDED GOAL TO DECREASE TPN PO IMPROVES
[2024-12-24 12:34] LABS: CDiff Gene PCR NEGATIVE (Negative)
[2024-12-24 15:12] VITALS: BP 127/67; PULSE 74; RESP 18; TEMP 36.2; O2SAT 94
[2024-12-24 15:21] LABS: Glucose, Whole Blood 98 mg/dL (60-115)
[2024-12-24 19:57] VITALS: BP 136/73; PULSE 75; RESP 18; TEMP 36.2; O2SAT 94
[2024-12-24 20:50] LABS: Glucose, Whole Blood 181 mg/dL (60-115)
[2024-12-24] MEDS: Atorvastatin Calcium 80 MG TABLET PO (21:00)
[2024-12-24] MEDS: Parenteral Nutrition 2,040 ML 85 ML IV (21:00)
--- NOTE | 2024-12-24 23:31 | PM.GIPN ---
Subjective Subjective Date of Service: 12/24/24 Interval History: Patient seen at 7PM. Significant other served as coronary care unit nurse. Patient has been feeling fairly well today. Reports a little less abdominal pain. Still with loose stool. Denies N/V. Still with postprandial abdominal pain. Critical Care Time (minutes): 0 Physical Exam Vital Signs: Vital Signs: Last Vital Signs Temp 97.2 F 12/24/24 19:57 Pulse 75 12/24/24 19:57 Resp 18 12/24/24 19:57 BP 136/73 12/24/24 19:57 Pulse Ox 94 12/24/24 19:57 O2 Del Method Room Air 12/24/24 19:57 O2 Flow Rate 1.5 12/17/24 15:31 BMI result Body Mass Index 37.4 Const: General: cooperative, healthy appearing, comfortable, no acute distress, well developed, alert and awake GI: Other: Soft, Nondistended, +BS, Mild diffuse temderness, No mass Objective Data Labs 12/24/24 06:01 12/24/24 06:01 Labs: Laboratory Results - last 24 hr 12/24/24 12/24/24 12/24/24 06:01 07:03 11:14 WBC 9.6 RBC 3.75 L Hgb 9.4 L Hct 29.9 L MCV 79.7 L MCH 25.1 L MCHC 31.4 RDW 14.6 Plt Count 592 H MPV 9.1 L Immature Gran % (Auto) 2.3 H Neut % (Auto) 69.2 Lymph % (Auto) 12.3 L [place] % (Auto) 12.3 H Eos % (Auto) 3.3 Baso % (Auto) 0.6 Lymph # (Auto) 1.2 [place] # (Auto) 1.2 Eos # (Auto) 0.3 Baso # (Auto) 0.1 Abs Immat Gran (auto) 0.22 H Absolute Neuts (auto) 6.6 Absolute Nucleated RBC 0.000 Nucleated RBC % (auto) 0.0 PT 17.0 H INR 1.5 H Sodium 136 Potassium 4.3 Chloride 103 Carbon Dioxide 24 Anion Gap 13 BUN 13 Creatinine 0.76 Estim Creat Clear Calc 214.7 Estimated GFR > 60 POC Glucose 140 H 160 H Random Glucose 114 Calcium 8.9 D Phosphorus 5.4 H Magnesium 1.7 Total Bilirubin 0.9 Direct Bilirubin 0.4 AST 133 H ALT 53 H Alkaline Phosphatase 154 H Total Protein 7.7 Albumin 3.0 L Lipase 237 H C. difficile Tox B Gene 12/24/24 12/24/24 12/24/24 11:23 15:17 20:47 WBC RBC Hgb Hct MCV MCH MCHC RDW Plt Count MPV Immature Gran % (Auto) Neut % (Auto) Lymph % (Auto) [place] % (Auto) Eos % (Auto) Baso % (Auto) Lymph # (Auto) [place] # (Auto) Eos # (Auto) Baso # (Auto) Abs Immat Gran (auto) Absolute Neuts (auto) Absolute Nucleated RBC Nucleated RBC % (auto) PT INR Sodium Potassium Chloride Carbon Dioxide Anion Gap BUN Creatinine Estim Creat Clear Calc Estimated GFR POC Glucose 98 181 H Random Glucose Calcium Phosphorus Magnesium Total Bilirubin Direct Bilirubin AST ALT Alkaline Phosphatase Total Protein Albumin Lipase C. difficile Tox B Gene NEGATIVE Microbiology Microbiology Results: Microbiology 12/16/24 08:51 Blood - Venous Blood Culture - Final No growth after 5 days. 12/16/24 08:51 Blood - Venous Blood Culture - Final No growth after 5 days. 12/09/24 00:16 Blood - Venous Blood Culture - Final No growth after 5 days. 12/08/24 18:00 Blood - Venous Blood Culture - Final No growth after 5 days. Procedures Date of Service Date of Service: 12/24/24 Progress Note: A&P Assessment and plan (1) Pancreatitis: Status: Acute Assessment and Plan: Imp: Acute pancreatitis--patient appears well and nontoxic. The CT from 12/23 appears to show some developing pseudocyst/phlegmon in area of tail of pancreas with some compression of the stomach. There is no sign of necrosis or abscess. Overall, I think he is slowly improving. His postprandial symptoms are probably due to the extrinsic gastric compression. No need for transfer to tertiary center at this time. Rec: Agree with full liquids and supplements for now. Try to wean off TPN and parenteral pain meds. Continue PPI but stop Carafate.Hopefully the pseudocyst/phlegmon will decrease in size and relieve some of his symptoms. He may need eventual drainage of the pseudocyst after 4 to 6 weeks if it remains large and symptomatic. Follow labs. Would give Vit K for elevated PT/INR. D/W patient and family in detail. They are comfortable with this plan. Thanks Time Spent With Patient Time: Total time managing care of this patient today ____ minutes. Quality Stroke Does the patient have a stroke diagnosis?: No VTE Prior VTE?: No VTE Risk Level:: Medical - moderate - high VTE Device Contraindication: N/A - Device Ordered VTE Drug Contraindication: N/A - Med Ordered
[2024-12-24] MEDS: 0.9 % Sodium Chloride Flush 3 ML SYRINGE IVFLUSH (23:54)
[2024-12-25] MEDS: Phytonadione (Vit K1) 5 MG in 0.9 % Sodium Chloride 50 ML 50.5 MG IV (00:43)
[2024-12-25] MEDS: 0.9 % Sodium Chloride Flush 10 ML SYRINGE IVFLUSH ×3 (00:46→16:33)
[2024-12-25] MEDS: HYDROmorphone HCl 2 MG/ML VIAL IVPUSH ×4 (00:59→16:31)
[2024-12-25 02:15] VITALS: BP 145/79; PULSE 77; RESP 15; TEMP 36.6; O2SAT 94
[2024-12-25] MEDS: Omeprazole 20 MG CAPSULE.DR PO (06:08)
[2024-12-25 06:30] LABS: Albumin Level 3.3 g/dL (3.5-5.0); Anion Gap 13 (12-20); Blood Urea Nitrogen 14 mg/dL (9-16); Calcium 9.3 mg/dL (8.4-10.2); Carbon Dioxide 24 mmol/L (22-29); Chloride 103 mmol/L (96-108); Estimated Glomerular Filt Rate > 60; Glucose Random 148 mg/dL (60-115); Magnesium 1.8 mg/dL (1.6-2.6); Phosphorus 4.4 mg/dL (2.7-4.5); Potassium 4.3 mmol/L (3.3-5.1); Sodium 136 mmol/L (135-145)
[2024-12-25] MEDS: oxyCODONE HCl Immed Release 5 MG TABLET 10 MG PO ×2 (07:22→15:10)
[2024-12-25] MEDS: Gabapentin 100 MG CAPSULE PO (07:22)
[2024-12-25] MEDS: Enoxaparin Sodium 40 MG/0.4 ML SYRINGE SUBCUT (07:22)
[2024-12-25] MEDS: gemfibroziL 600 MG TABLET PO ×2 (07:22→16:30)
[2024-12-25 08:00] VITALS: BP 134/79; PULSE 83; RESP 16; TEMP 36.2; O2SAT 95
[2024-12-25 08:01] LABS: Glucose, Whole Blood 159 mg/dL (60-115)
[2024-12-25] MEDS: Insulin Glargine,Hum.rec.anlog 100 UNIT/ML 10 ML VIAL 15 UNIT SUBCUT ×2 (08:18→22:08)
[2024-12-25] MEDS: 0.9 % Sodium Chloride Flush 3 ML SYRINGE IVFLUSH ×3 (08:24→22:31)
[2024-12-25 09:40] VITALS: BP 134/79; PULSE 83; O2SAT 95
--- NOTE | 2024-12-25 09:53 | MHC.CLN ---
F/U DIET RX FULL LIQUIDS DUE TO PAIN WITH EATING SUPPLEMENT ENSURE CLEAR TID PROVIDES 720 KCALS, 24 G PROTEIN. ENSURE CLEAR IS A FAT FREE PRODUCT CONTINUES WITH PPN UNTIL ABLE TO TOLERATE ADEQUATE PO REVIEWED LABS. COMMUNICATED WITH PHARMACY CONTINUE TPN AT 85ML PER HOUR PROVIDES 1448 KCALS (16.3 KCALS/KG IBW), 102 G PROTEIN (1.1 G/KG IBW), 306 G DEXTROSE REPLETE LYTES NEEDED GOAL TO DECREASE TPN PO IMPROVES
[2024-12-25 10:49] VITALS: BP 134/79; PULSE 83; O2SAT 95
[2024-12-25 11:34] LABS: Glucose, Whole Blood 158 mg/dL (60-115)
[2024-12-25] MEDS: Insulin Lispro 100 UNIT/ML 3 ML VIAL SUBCUT ×3 (11:54→22:09)
--- NOTE | 2024-12-25 13:24 | HO.PM.IMPN ---
Subjective Subjective Date of Service: 12/25/24 Interval History: Seen and examined this morning Follow-up for pancreatitis Continues to have abdominal pain primarily with eating Constitutional Constitutional: Denies chills and Denies fever(s) Physical Exam Vital Signs: Vital Signs: Last Vital Signs Temp 97.2 F 12/25/24 08:00 Pulse 83 12/25/24 10:49 Resp 16 12/25/24 08:00 BP 134/79 12/25/24 10:49 Pulse Ox 95 12/25/24 10:49 O2 Del Method Room Air 12/25/24 08:00 O2 Flow Rate 1.5 12/17/24 15:31 BMI result Body Mass Index 37.4 Const: General: alert, awake and Physically active Nutritional Appearance: obese Orientation/consciousness: patient oriented x3 Resp: Effort & Inspection: normal respiratory effort, able to speak in complete sentences, no respiratory distress and no use of accessory muscles Cardio: Rate: regular rate GI: Other: tender mid abdomen/epigastric area primarily; mild distention Neuro: General: patient oriented x3, moves all extremities and CN's II-XI intact bilaterally Extrem: General: Yes no pedal edema Objective Data Active Medications Acetaminophen (Acetaminophen 325 Mg Tablet) 650 mg PO Q4H PRN PRN Reason: Pain, Mild 1-3,fever,headache Last Admin: 12/18/24 05:22 Dose: 650 mg Documented By: KALYAN Atorvastatin Calcium (Atorvastatin Calcium 80 Mg Tablet) 80 mg PO BEDTIME [facility] Last Admin: 12/24/24 21:00 Dose: 80 mg Documented By: JOSE Dextrose (Dextrose 50 % 25 Gm/50 Ml Syringe) 25 gm IVPUSH Q30M PRN PRN Reason: BG < 70 Docusate Sodium (Docusate Sodium 100 Mg Capsule) 100 mg PO BID PRN PRN Reason: Constipation Last Admin: 12/17/24 09:52 Dose: 100 mg Documented By: JENNA Enoxaparin Sodium (Enoxaparin Sodium 40 Mg/0.4 Ml Syringe) 40 mg SUBCUT Q24H [facility] Last Admin: 12/25/24 07:22 Dose: 40 mg Documented By: NADER Gemfibrozil (Gemfibrozil 600 Mg Tablet) 600 mg PO BIDAC [facility] Last Admin: 12/25/24 07:22 Dose: 600 mg Documented By: NADER Hydromorphone HCl (Hydromorphone Hcl 2 Mg/Ml Vial) 2 mg IVPUSH TIDAC [facility]; Protocol Nutrition (Parenteral) (Parenteral Nutrition) 2,040 mls @ 85 mls/hr IV .Q24H [facility]; Protocol Stop: 12/25/24 20:59 Last Admin: 12/24/24 21:00 Dose: 85 mls/hr Documented By: JOSE Nutrition (Parenteral) (Parenteral Nutrition) 2,040 mls @ 85 mls/hr IV .Q24H [facility]; Protocol Stop: 12/26/24 20:59 Insulin Glargine (Insulin Glargine,Hum.Rec.Anlog 100 Unit/Ml 10 Ml Vial) 15 unit SUBCUT BID [facility] Last Admin: 12/25/24 08:18 Dose: 15 unit Documented By: NISHA Insulin Human Lispro (Insulin Lispro 100 Unit/Ml 3 Ml Vial) 0 unit SUBCUT QIDACHS [facility]; Protocol Last Admin: 12/25/24 11:54 Dose: 4 unit Documented By: NISHA Nitroglycerin (Nitroglycerin 0.4 Mg Tab.Subl) 0.4 mg SUBLINGUAL Q5MX3 PRN PRN Reason: Chest Pain Last Admin: 12/12/24 23:46 Dose: 0.4 mg Documented By: CARMEN Omeprazole (Omeprazole 20 Mg Capsule.) 20 mg PO DAILY@0630 [facility] Last Admin: 12/25/24 06:08 Dose: 20 mg Documented By: JOSE Ondansetron HCl (Ondansetron Hcl 4 Mg/2 Ml Vial) 4 mg IVPUSH Q6H PRN PRN Reason: Nausea and Vomiting Last Admin: 12/19/24 19:43 Dose: 4 mg Documented By: KALYAN Oxycodone HCl (Oxycodone Hcl Immed Release 5 Mg Tablet) 10 mg PO Q6H PRN PRN Reason: Pain, Moderate(Pain Scale 4-6) Last Admin: 12/25/24 07:22 Dose: 10 mg Documented By: NADER Pharmacy Consult (Consult Rx Parenteral Nutrition Ordering) 1 each MISCELLANE DAILY PRN PRN Reason: Consult order Pharmacy Consult (Consult Rx Vancomycin Dosing) 1 each MISCELLANE DAILY PRN PRN Reason: Consult order Polyethylene Glycol (Polyethylene Glycol 3350 17 Gm Powd.Pack) 17 gm PO DAILY PRN PRN Reason: Constipation Last Admin: 12/16/24 19:40 Dose: 17 gm Documented By: AIDEN Sodium Chloride (0.9 % Sodium Chloride Flush 3 Ml Syringe) 3 ml IVFLUSH QSHIFT [facility] Last Admin: 12/25/24 08:24 Dose: 3 ml Documented By: NISHA Sodium Chloride (0.9 % Sodium Chloride Flush 10 Ml Syringe) 10 ml IVFLUSH QSHIFT [facility] Last Admin: 12/25/24 08:23 Dose: 10 ml Documented By: NISHA Labs 12/24/24 06:01 12/25/24 05:49 Labs: Laboratory Results - last 24 hr 12/24/24 12/24/24 12/25/24 15:17 20:47 05:49 Anion Gap 13 Estim Creat Clear Calc 212.0 Estimated GFR > 60 POC Glucose 98 181 H Random Glucose 148 H Calcium 9.3 Phosphorus 4.4 Magnesium 1.8 Albumin 3.3 L 12/25/24 12/25/24 07:25 11:14 Anion Gap Estim Creat Clear Calc Estimated GFR POC Glucose 159 H 158 H Random Glucose Calcium Phosphorus Magnesium Albumin Assessment and Plan (1) Pancreatitis: Status: Acute Plan 29M PMH metabolic syndrome with morbid obesity, uncontrolled DM, HTN, hypertriglyceridemia with history of pancreatitis, NAFLD, 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 of note had stroke alert 12/08/24 for facial parasthesias SIRS due to hypertriglyceridemia induced acute pancreatitis On statin and gemfibrozil, triglycerides have decreased from 5000 to 280 on tpn via picc continue PPI b.i.d persistent pain, still requiring high dose narcotics, discussed with GI> abd CT with contrast showing improvement, no necrosis diet dowgraded to full liquids, tolerating; likely d/c tpn in am wean down IV narcotics -change to dosing with meals PT eval. ambulate CAP Pneumonia MRSA swab negative discontinued vancomycin, s/p 10 days of Zosyn on room air blood cultures negative DKA Resolved, continue basal bolus insulin Episode of paresthesias with twitching Seen by Neuro>unlikely CVA/TIA Metabolic syndrome/obesity. BMI 37.4 Weight loss recommended Glomus jugulare tumor Continue to follow up outpatient with rad/onc, Dr. Iglesias DVT prophylaxis with Lovenox Full Code Quality Stroke Does the patient have a stroke diagnosis?: No VTE Prior VTE?: No VTE Risk Level:: Medical - moderate - high VTE Device Contraindication: N/A - Device Ordered VTE Drug Contraindication: N/A - Med Ordered
--- NOTE | 2024-12-25 13:26 | MHC.CM.PN ---
EMR REVIEWED AND PER MD ROUNDS, PT IS NOT MEDICALLY CLEARED FOR DC (WEANING OFF TPN, WEANING DOWN PAIN MEDS, DIET ASSESSMENT/ADVANCE) CM WILL CONTINUE TO FOLLOW FOR ANY CHANGE TO DC PLAN.
[2024-12-25 15:05] VITALS: BP 121/73; PULSE 88; RESP 16; TEMP 36.3; O2SAT 96
[2024-12-25 16:37] LABS: Glucose, Whole Blood 132 mg/dL (60-115)
[2024-12-25 19:11] VITALS: BP 140/67; PULSE 86; RESP 18; TEMP 36.4; O2SAT 96
[2024-12-25 20:24] LABS: Glucose, Whole Blood 144 mg/dL (60-115)
[2024-12-25] MEDS: Atorvastatin Calcium 80 MG TABLET PO (22:08)
[2024-12-25] MEDS: Parenteral Nutrition 2,040 ML 85 ML IV (22:11)
[2024-12-25] MEDS: HYDROmorphone HCl 2 MG/ML VIAL 1.5 MG IVPUSH (22:30)
[2024-12-26] VITALS (7 sets, daily range): BP systolic 129–144; BP diastolic 64–79; PULSE 66–92; RESP 16–18; TEMP 36–37.4; O2SAT 94–97; BMI 36.4
[2024-12-26] MEDS: HYDROmorphone HCl 2 MG/ML VIAL IVPUSH ×3 (02:55→12:08)
[2024-12-26] MEDS: Ketorolac Tromethamine 15 MG/ML VIAL IVPUSH (02:56)
[2024-12-26] MEDS: LORazepam 1 MG TABLET PO (02:57)
[2024-12-26] MEDS: Omeprazole 20 MG CAPSULE.DR PO (05:50)
[2024-12-26 06:27] LABS: INTERNATIONAL NORM RATIO 1.5 (0.9-1.1); Prothrombin Time 17.2 SEC (10.9-12.4)
[2024-12-26 06:37] LABS: Alanine Aminotransferase 55 U/L (0-40); Albumin Level 3.1 g/dL (3.5-5.0); Alkaline Phosphatase 146 U/L (39-117); Anion Gap 15 (12-20); Aspartate Amino Transferase 107 U/L (5-37); Bilirubin Direct 0.4 mg/dL (0.0-0.5); Bilirubin Total 0.7 mg/dL (0.0-1.0); Blood Urea Nitrogen 15 mg/dL (9-16); Calcium 9.4 mg/dL (8.4-10.2); Carbon Dioxide 24 mmol/L (22-29); Chloride 101 mmol/L (96-108); Creatinine Clr Calc Pharmacy 217.5; Estimated Glomerular Filt Rate > 60; Glucose Random 148 mg/dL (60-115); Magnesium 1.8 mg/dL (1.6-2.6); Phosphorus 5.1 mg/dL (2.7-4.5); Potassium 4.3 mmol/L (3.3-5.1); Sodium 136 mmol/L (135-145)
[2024-12-26 07:23] LABS: Glucose, Whole Blood 148 mg/dL (60-115)
[2024-12-26] MEDS: gemfibroziL 600 MG TABLET PO ×2 (07:56→17:09)
[2024-12-26] MEDS: Insulin Lispro 100 UNIT/ML 3 ML VIAL SUBCUT ×3 (07:57→17:09)
[2024-12-26] MEDS: Insulin Glargine,Hum.rec.anlog 100 UNIT/ML 10 ML VIAL 15 UNIT SUBCUT ×2 (07:57→22:27)
[2024-12-26] MEDS: Enoxaparin Sodium 40 MG/0.4 ML SYRINGE SUBCUT (08:04)
[2024-12-26] MEDS: 0.9 % Sodium Chloride Flush 3 ML SYRINGE IVFLUSH ×2 (08:08→17:09)
--- NOTE | 2024-12-26 10:47 | MHC.CLN ---
F/U PO INTAKE 100% X6 MEALS OF FULL LIQUID DIET RX: FULL LIQUID-APPROPRIATE SUPPLEMENT IN PLACE ENSURE CLEAR TID PROVIDES 720 KCALS, 24 G PROTEIN (ENSURE CLEAR IS A FAT FREE PRODUCT) D/C TPN PER TODAY-COMMUNICATED WITH PHARMACY WILL SWITCH TO ENSURE TID TO PROVIDE 1050KCALS, 60G PROTEIN MONITOR PO INTAKE CLOSELY AND ENCOURAGE SUPPLEMENTS
[2024-12-26 11:22] LABS: Glucose, Whole Blood 122 mg/dL (60-115)
--- NOTE | 2024-12-26 15:54 | HO.PM.IMPN ---
Subjective Subjective Date of Service: 12/26/24 Interval History: seen and examined this morning follow up for pancreatitis reports slow improvement in pain giving pain meds around eating has been helpful Review of Systems Review of Systems: Yes all other systems are reviewed and are negative Constitutional Constitutional: Denies chills and Denies fever(s) Cardiovascular Cardiovascular: Denies chest pain, Denies palpitations and Denies dyspnea Respiratory Respiratory: Denies cough and Denies dyspnea Endocrine Endocrine: Denies palpitations Physical Exam Vital Signs: Vital Signs: Last Vital Signs Temp 98 F 12/26/24 15:05 Pulse 66 12/26/24 15:05 Resp 18 12/26/24 15:05 BP 131/79 12/26/24 15:05 Pulse Ox 95 12/26/24 15:05 O2 Del Method Room Air 12/26/24 15:05 O2 Flow Rate 1.5 12/17/24 15:31 BMI result Body Mass Index 36.4 Const: General: alert, awake and Physically active Nutritional Appearance: obese Orientation/consciousness: patient oriented x3 Resp: Effort & Inspection: normal respiratory effort, able to speak in complete sentences, no respiratory distress and no use of accessory muscles Cardio: Rate: regular rate GI: Other: tender mid abdomen/epigastric area primarily; mild distention Neuro: General: patient oriented x3, moves all extremities and CN's II-XI intact bilaterally Extrem: General: Yes no pedal edema Objective Data Active Medications Acetaminophen (Acetaminophen 325 Mg Tablet) 650 mg PO Q4H PRN PRN Reason: Pain, Mild 1-3,fever,headache Last Admin: 12/18/24 05:22 Dose: 650 mg Documented By: KALYAN Atorvastatin Calcium (Atorvastatin Calcium 80 Mg Tablet) 80 mg PO BEDTIME [facility] Last Admin: 12/25/24 22:08 Dose: 80 mg Documented By: KALYAN Dextrose (Dextrose 50 % 25 Gm/50 Ml Syringe) 25 gm IVPUSH Q30M PRN PRN Reason: BG < 70 Docusate Sodium (Docusate Sodium 100 Mg Capsule) 100 mg PO BID PRN PRN Reason: Constipation Last Admin: 12/17/24 09:52 Dose: 100 mg Documented By: JENNA Enoxaparin Sodium (Enoxaparin Sodium 40 Mg/0.4 Ml Syringe) 40 mg SUBCUT Q24H [facility] Last Admin: 12/26/24 08:04 Dose: 40 mg Documented By: LESIA Gemfibrozil (Gemfibrozil 600 Mg Tablet) 600 mg PO BIDAC [facility] Last Admin: 12/26/24 07:56 Dose: 600 mg Documented By: LESIA Hydromorphone HCl (Hydromorphone Hcl 2 Mg/Ml Vial) 2 mg IVPUSH TIDAC [facility]; Protocol Last Admin: 12/26/24 12:08 Dose: 2 mg Documented By: LESIA Nutrition (Parenteral) (Parenteral Nutrition) 2,040 mls @ 85 mls/hr IV .Q24H [facility]; Protocol Stop: 12/26/24 20:59 Last Admin: 12/25/24 22:11 Dose: 85 mls/hr Documented By: KALYAN Insulin Glargine (Insulin Glargine,Hum.Rec.Anlog 100 Unit/Ml 10 Ml Vial) 15 unit SUBCUT BID [facility] Last Admin: 12/26/24 07:57 Dose: 15 unit Documented By: LESIA Insulin Human Lispro (Insulin Lispro 100 Unit/Ml 3 Ml Vial) 0 unit SUBCUT QIDACHS [facility]; Protocol Last Admin: 12/26/24 12:08 Dose: 2 unit Documented By: LESIA Nitroglycerin (Nitroglycerin 0.4 Mg Tab.Subl) 0.4 mg SUBLINGUAL Q5MX3 PRN PRN Reason: Chest Pain Last Admin: 12/12/24 23:46 Dose: 0.4 mg Documented By: CARMEN Omeprazole (Omeprazole 20 Mg Capsule.Dr) 20 mg PO DAILY@0630 [facility] Last Admin: 12/26/24 05:50 Dose: 20 mg Documented By: KALYAN Ondansetron HCl (Ondansetron Hcl 4 Mg/2 Ml Vial) 4 mg IVPUSH Q6H PRN PRN Reason: Nausea and Vomiting Last Admin: 12/19/24 19:43 Dose: 4 mg Documented By: KALYAN Oxycodone HCl (Oxycodone Hcl Immed Release 5 Mg Tablet) 10 mg PO Q6H PRN PRN Reason: Pain, Moderate(Pain Scale 4-6) Last Admin: 12/25/24 15:10 Dose: 10 mg Documented By: NISHA Pharmacy Consult (Consult Rx Parenteral Nutrition Ordering) 1 each MISCELLANE DAILY PRN PRN Reason: Consult order Polyethylene Glycol (Polyethylene Glycol 3350 17 Gm Powd.Pack) 17 gm PO DAILY PRN PRN Reason: Constipation Last Admin: 12/16/24 19:40 Dose: 17 gm Documented By: AIDEN Sodium Chloride (0.9 % Sodium Chloride Flush 3 Ml Syringe) 3 ml IVFLUSH QSHIFT [facility] Last Admin: 12/26/24 08:08 Dose: 3 ml Documented By: LESIA Sodium Chloride (0.9 % Sodium Chloride Flush 10 Ml Syringe) 10 ml IVFLUSH QSHIFT [facility] Last Admin: 12/26/24 08:09 Dose: Not Given Documented By: LESIA Non-Admin Reason: IV Running Labs 12/24/24 06:01 12/26/24 06:10 Labs: Laboratory Results - last 24 hr 12/25/24 12/25/24 12/26/24 16:18 20:20 06:10 Hold Purple Top SEE NOTE PT 17.2 H INR 1.5 H Anion Gap 15 Estim Creat Clear Calc 217.5 Estimated GFR > 60 POC Glucose 132 H 144 H Random Glucose 148 H Calcium 9.4 Phosphorus 5.1 H Magnesium 1.8 Total Bilirubin 0.7 Direct Bilirubin 0.4 AST 107 H ALT 55 H Alkaline Phosphatase 146 H Total Protein 8.0 Albumin 3.1 L 12/26/24 12/26/24 07:19 11:18 Hold Purple Top PT INR Anion Gap Estim Creat Clear Calc Estimated GFR POC Glucose 148 H 122 H Random Glucose Calcium Phosphorus Magnesium Total Bilirubin Direct Bilirubin AST ALT Alkaline Phosphatase Total Protein Albumin Assessment and Plan (1) Hypertriglyceridemia: Status: Acute (2) Acute pancreatitis: Status: Acute Plan 29M PMH metabolic syndrome with morbid obesity, uncontrolled DM, HTN, hypertriglyceridemia with history of pancreatitis, NAFLD, 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 of note had stroke alert 12/08/24 for facial parasthesias SIRS due to hypertriglyceridemia induced acute pancreatitis On statin and gemfibrozil, triglycerides have decreased from 5000 to 280 on tpn via picc continue PPI b.i.d persistent pain, still requiring high dose narcotics, discussed with GI> abd CT with contrast showing improvement, no necrosis diet dowgraded to full liquids, tolerating; likely d/c tpn in am wean down IV narcotics -change to dosing with meals. encourage po pain control PT eval. ambulate CAP Pneumonia MRSA swab negative discontinued vancomycin, s/p 10 days of Zosyn on room air blood cultures negative DKA Resolved, continue basal bolus insulin Episode of paresthesias with twitching Seen by Neuro>unlikely CVA/TIA Metabolic syndrome/obesity. BMI 37.4 Weight loss recommended Glomus jugulare tumor Continue to follow up outpatient with rad/onc, Dr. Iglesias DVT prophylaxis with Lovenox Full Code Quality Stroke Does the patient have a stroke diagnosis?: No VTE Prior VTE?: No VTE Risk Level:: Medical - moderate - high VTE Device Contraindication: N/A - Device Ordered VTE Drug Contraindication: N/A - Med Ordered
[2024-12-26 16:46] LABS: Glucose, Whole Blood 159 mg/dL (60-115)
[2024-12-26] MEDS: HYDROmorphone HCl 2 MG/ML VIAL 1.5 MG IVPUSH (17:10)
[2024-12-26] MEDS: 0.9 % Sodium Chloride Flush 10 ML SYRINGE IVFLUSH (17:10)
[2024-12-26 20:12] LABS: Glucose, Whole Blood 123 mg/dL (60-115)
[2024-12-26] MEDS: Atorvastatin Calcium 80 MG TABLET PO (22:30)
[2024-12-26] MEDS: oxyCODONE HCl Immed Release 5 MG TABLET 10 MG PO (22:31)
[2024-12-27] VITALS (7 sets, daily range): BP systolic 125–131; BP diastolic 60–83; PULSE 64–95; RESP 16–18; TEMP 36–36.6; O2SAT 93–97
[2024-12-27] MEDS: Melatonin 3 MG TABLET 9 MG PO (00:45)
[2024-12-27] MEDS: HYDROmorphone HCl 1 MG/ML SYRINGE IVPUSH (01:54)
[2024-12-27] MEDS: oxyCODONE HCl Immed Release 5 MG TABLET 10 MG PO ×2 (05:19→20:25)
[2024-12-27] MEDS: Omeprazole 20 MG CAPSULE.DR PO (05:20)
[2024-12-27 07:15] LABS: Hematocrit 34.5 % (42.0-52.0); Hemoglobin 10.9 g/dl (14.0-18.0); Mean Corpuscular HGB Conc 31.6 g/dl (31.0-36.0); Mean Corpuscular Hemoglobin 25.1 pg (27.0-33.0); Mean Corpuscular Volume 79.3 fL (80.0-98.0); Platelet Count 613 X10*3/uL (160-400); Red Blood Count 4.35 X10*6/uL (4.60-5.80); Red Cell Distribution Width 14.3 % (11.0-16.0); White Blood Count 6.8 X10*3/uL (4.8-10.8)
[2024-12-27 07:27] LABS: Glucose, Whole Blood 100 mg/dL (60-115)
[2024-12-27 07:47] LABS: Triglycerides 200 mg/dL (<150)
[2024-12-27 07:54] LABS: Alanine Aminotransferase 50 U/L (0-40); Albumin Level 3.2 g/dL (3.5-5.0); Alkaline Phosphatase 150 U/L (39-117); Anion Gap 15 (12-20); Aspartate Amino Transferase 104 U/L (5-37); Bilirubin Total 0.6 mg/dL (0.0-1.0); Blood Urea Nitrogen 15 mg/dL (9-16); C Reactive Protein 5.86 mg/dL (< or = 0.50); Calcium 9.1 mg/dL (8.4-10.2); Carbon Dioxide 24 mmol/L (22-29); Chloride 101 mmol/L (96-108); Creatinine Clr Calc Pharmacy 214.6; Estimated Glomerular Filt Rate > 60; Glucose Random 95 mg/dL (60-115); Lipase 218 U/L (8-78); Sodium 136 mmol/L (135-145); Total Protein 8.1 g/dL (6.5-8.0)
[2024-12-27] MEDS: gemfibroziL 600 MG TABLET PO ×2 (08:20→16:44)
[2024-12-27] MEDS: HYDROmorphone HCl 2 MG/ML VIAL 1.5 MG IVPUSH (08:21)
[2024-12-27] MEDS: 0.9 % Sodium Chloride Flush 3 ML SYRINGE IVFLUSH (08:22)
[2024-12-27] MEDS: Enoxaparin Sodium 40 MG/0.4 ML SYRINGE SUBCUT (08:25)
[2024-12-27] MEDS: Insulin Glargine,Hum.rec.anlog 100 UNIT/ML 10 ML VIAL 15 UNIT SUBCUT (08:26)
[2024-12-27] MEDS: 0.9 % Sodium Chloride Flush 10 ML SYRINGE IVFLUSH (08:27)
--- NOTE | 2024-12-27 09:46 | MHC.CLN ---
F/U PO INTAKE OF FULL LIQUIDS APPEARS USUALLY GOOD, 75-100%. DIET RX: FULL LIQUID WITH ENSURE TID. SUPPLEMENT PROVIDES 1050 KCALS, 60 G PROTEIN. MONITOR PO INTAKE CLOSELY AND ENCOURAGE SUPPLEMENTS.
--- NOTE | 2024-12-27 10:37 | MHC.CM.PN ---
Per MD rounds patient not medically cleared for dc. PT recommending home w/ services. However, patient does not have PCP. Discussed w/ patient and S.O. - he has an appt at [facility] in January and will ask for services at that time if still needed.
[2024-12-27 11:22] LABS: Glucose, Whole Blood 103 mg/dL (60-115)
--- NOTE | 2024-12-27 12:00 | HO.PM.IMPN ---
Subjective Subjective Date of Service: 12/27/24 Interval History: Seen and examined this morning Follow-up for severe pancreatitis Continues to stay in bed, does not ambulate much despite lots of encouragement still with pain primarily with eating, but able to tolerate liquids and protein supplements Constitutional Constitutional: Denies chills and Denies fever(s) Cardiovascular Cardiovascular: Denies chest pain Gastrointestinal Gastrointestinal: Reports abdominal pain Physical Exam Vital Signs: Vital Signs: Last Vital Signs Temp 96.8 F 12/27/24 08:00 Pulse 69 12/27/24 08:00 Resp 18 12/27/24 08:21 BP 127/83 12/27/24 08:00 Pulse Ox 96 12/27/24 08:00 O2 Del Method Room Air 12/27/24 08:00 O2 Flow Rate 1.5 12/17/24 15:31 BMI result Body Mass Index 36.4 Const: General: cooperative Nutritional Appearance: obese Orientation/consciousness: patient oriented x3 Resp: Effort & Inspection: normal respiratory effort, able to speak in complete sentences, no respiratory distress and no use of accessory muscles Cardio: Rate: regular rate Neuro: General: patient oriented x3, moves all extremities and CN's II-XI intact bilaterally Extrem: General: Yes no pedal edema Objective Data Active Medications Acetaminophen (Acetaminophen 325 Mg Tablet) 650 mg PO Q4H PRN PRN Reason: Pain, Mild 1-3,fever,headache Last Admin: 12/18/24 05:22 Dose: 650 mg Documented By: KALYAN Atorvastatin Calcium (Atorvastatin Calcium 80 Mg Tablet) 80 mg PO BEDTIME [facility] Last Admin: 12/26/24 22:30 Dose: 80 mg Documented By: KALYAN Dextrose (Dextrose 50 % 25 Gm/50 Ml Syringe) 25 gm IVPUSH Q30M PRN PRN Reason: BG < 70 Docusate Sodium (Docusate Sodium 100 Mg Capsule) 100 mg PO BID PRN PRN Reason: Constipation Last Admin: 12/17/24 09:52 Dose: 100 mg Documented By: JENNA Enoxaparin Sodium (Enoxaparin Sodium 40 Mg/0.4 Ml Syringe) 40 mg SUBCUT Q24H [facility] Last Admin: 12/27/24 08:25 Dose: 40 mg Documented By: LESIA Gemfibrozil (Gemfibrozil 600 Mg Tablet) 600 mg PO BIDAC [facility] Last Admin: 12/27/24 08:20 Dose: 600 mg Documented By: LESIA Hydromorphone HCl (Hydromorphone Hcl 2 Mg/Ml Vial) 1 mg IVPUSH TIDAC PRN; Protocol PRN Reason: Pain, Severe (Pain Scale 7-10) Insulin Glargine (Insulin Glargine,Hum.Rec.Anlog 100 Unit/Ml 10 Ml Vial) 15 unit SUBCUT BID [facility] Last Admin: 12/27/24 08:26 Dose: 15 unit Documented By: LESIA Insulin Human Lispro (Insulin Lispro 100 Unit/Ml 3 Ml Vial) 0 unit SUBCUT QIDACHS [facility]; Protocol Last Admin: 12/27/24 11:34 Dose: Not Given Documented By: LESIA Non-Admin Reason: No Insulin Coverage Nitroglycerin (Nitroglycerin 0.4 Mg Tab.Subl) 0.4 mg SUBLINGUAL Q5MX3 PRN PRN Reason: Chest Pain Last Admin: 12/12/24 23:46 Dose: 0.4 mg Documented By: CARMEN Omeprazole (Omeprazole 20 Mg Capsule.Dr) 20 mg PO DAILY@0630 [facility] Last Admin: 12/27/24 05:20 Dose: 20 mg Documented By: ABRAN Ondansetron HCl (Ondansetron Hcl 4 Mg/2 Ml Vial) 4 mg IVPUSH Q6H PRN PRN Reason: Nausea and Vomiting Last Admin: 12/19/24 19:43 Dose: 4 mg Documented By: KALYAN Oxycodone HCl (Oxycodone Hcl Immed Release 5 Mg Tablet) 10 mg PO Q6H PRN PRN Reason: Pain, Severe (Pain Scale 7-10) Last Admin: 12/27/24 05:19 Dose: 10 mg Documented By: ABRAN Pharmacy Consult (Consult Rx Parenteral Nutrition Ordering) 1 each MISCELLANE DAILY PRN PRN Reason: Consult order Polyethylene Glycol (Polyethylene Glycol 3350 17 Gm Powd.Pack) 17 gm PO DAILY PRN PRN Reason: Constipation Last Admin: 12/16/24 19:40 Dose: 17 gm Documented By: ROSITA-WANG Sodium Chloride (0.9 % Sodium Chloride Flush 3 Ml Syringe) [facility] Last Admin: 12/27/24 08:22 Dose: 3 ml Documented By: LESIA Sodium Chloride (0.9 % Sodium Chloride Flush 10 Ml Syringe) 10 ml IVFLUSH QSHIFT [facility] Last Admin: 12/27/24 08:27 Dose: 10 ml Documented By: LESIA Labs 12/27/24 05:36 12/27/24 05:36 Labs: Laboratory Results - last 24 hr 12/26/24 12/26/24 12/27/24 16:41 20:07 05:36 MCV 79.3 L MCH 25.1 L MCHC 31.6 RDW 14.3 Plt Count 613 H MPV 9.0 L Absolute Nucleated RBC 0.000 Nucleated RBC % (auto) 0.0 Anion Gap 15 Estim Creat Clear Calc 214.6 Estimated GFR > 60 POC Glucose 159 H 123 H Random Glucose 95 Calcium 9.1 Total Bilirubin 0.6 AST 104 H ALT 50 H Alkaline Phosphatase 150 H C-Reactive Protein 5.86 H Total Protein 8.1 H Albumin 3.2 L Triglycerides 200 H Lipase 218 H 12/27/24 12/27/24 07:23 11:19 MCV MCH MCHC RDW Plt Count MPV Absolute Nucleated RBC Nucleated RBC % (auto) Anion Gap Estim Creat Clear Calc Estimated GFR POC Glucose 100 103 Random Glucose Calcium Total Bilirubin AST ALT Alkaline Phosphatase C-Reactive Protein Total Protein Albumin Triglycerides Lipase Assessment and Plan (1) DKA (diabetic ketoacidosis): Status: Acute (2) Hypertriglyceridemia: Status: Acute (3) Acute pancreatitis: Status: Acute Plan 29M PMH metabolic syndrome with morbid obesity, uncontrolled DM, HTN, hypertriglyceridemia with history of pancreatitis, NAFLD, 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 of note had stroke alert 12/08/24 for facial parasthesias SIRS due to hypertriglyceridemia induced acute pancreatitis On statin and gemfibrozil, triglycerides have decreased from 5000 to 280 continue PPI b.i.d persistent pain, still requiring high dose narcotics, discussed with GI> abd CT with contrast showing improvement, no necrosis tolerating liquids and protein supplements, will advance to regular diet; stop PPN will wean to po pain meds l PT eval. ambulate CAP Pneumonia MRSA swab negative discontinued vancomycin, s/p 10 days of Zosyn on room air blood cultures negative DKA Resolved, continue basal bolus insulin Episode of paresthesias with twitching Seen by Neuro>unlikely CVA/TIA Metabolic syndrome/obesity. BMI 37.4 Weight loss recommended Glomus jugulare tumor Continue to follow up outpatient with rad/onc, Dr. Iglesias DVT prophylaxis with Lovenox Full Code Quality Stroke Does the patient have a stroke diagnosis?: No VTE Prior VTE?: No VTE Risk Level:: Medical - moderate - high VTE Device Contraindication: N/A - Device Ordered VTE Drug Contraindication: N/A - Med Ordered
[2024-12-27] MEDS: HYDROmorphone HCl 2 MG TABLET PO ×2 (12:39→16:44)
--- NOTE | 2024-12-27 15:46 | PM.EVENT ---
Event Note Date of Service: 12/27/24 Event Note: GI-Course noted-still having postprandial abdominal pain, rising platelets, and somewhat suspicious CT earlier this week. I will reorder a F/U CT with PO and IV contrast to reinspect for any sign of necrosis/infection, as well as to assess for any component of extrinsic compression of the stomach. If that all looks OK and stable then his diet can be advanced and he can be treated symptomatically for pain. If there is evidence of pancreatic necrosis, infected pseudocyst, and/or a component of gastric outlet obstruction/extrinsic stomach compression, he would then to be transferred to a tertiary center rather than be discharged home D/W hospitalist staff. Thanks . Time Spent With Patient Time: Total time managing care of this patient today ____ minutes.
[2024-12-27 16:34] LABS: Glucose, Whole Blood 118 mg/dL (60-115)
[2024-12-27] MEDS: Insulin Lispro 100 UNIT/ML 3 ML VIAL SUBCUT (16:44)
[2024-12-27 20:25] LABS: Glucose, Whole Blood 93 mg/dL (60-115)
[2024-12-27] MEDS: Atorvastatin Calcium 80 MG TABLET PO (20:26)
--- NOTE | 2024-12-27 21:30 | PC.NURSE ---
Pt's bedtime POC was 93. Pt has MARIETTA 15 units of Lantus ordered. This RN notified MD Gonzalez about the POC and to hold off on the MARIETTA 15 units of Lantus. No other orders were given at this time. Will continue to monitor pt's POC.
[2024-12-28] MEDS: traZODone HCL 25 MG HALFTAB PO ×2 (00:29→21:50)
[2024-12-28] MEDS: oxyCODONE HCl Immed Release 5 MG TABLET 10 MG PO ×2 (02:55→17:45)
[2024-12-28 03:48] VITALS: BP 143/82; PULSE 70; RESP 18; TEMP 36.2; O2SAT 97
[2024-12-28] MEDS: Omeprazole 20 MG CAPSULE.DR PO (05:52)
[2024-12-28 06:00] VITALS: BMI 36.4
[2024-12-28 07:10] VITALS: BP 127/80; PULSE 75; RESP 16; TEMP 36.4; O2SAT 96
[2024-12-28 07:21] LABS: Glucose, Whole Blood 101 mg/dL (60-115)
[2024-12-28] MEDS: HYDROmorphone HCl 2 MG TABLET PO ×3 (07:49→21:50)
[2024-12-28] MEDS: gemfibroziL 600 MG TABLET PO ×2 (07:50→17:39)
[2024-12-28] MEDS: Enoxaparin Sodium 40 MG/0.4 ML SYRINGE SUBCUT (09:28)
[2024-12-28 11:10] LABS: Glucose, Whole Blood 115 mg/dL (60-115)
[2024-12-28] MEDS: iohexoL 350 MG/ML 100 ML INFUS..BTL IV (11:45)
[2024-12-28] MEDS: Diatrizoate Meglumine, Sodium 30 ML SOLUTION PO (11:47)
--- NOTE | 2024-12-28 15:19 | P.PNIM_ITS ---
Subjective Subjective Date of Service: 12/28/24 Interval History: Seen and examined this morning Follow-up for severe pancreatitis Continues to stay in bed, does not ambulate much despite lots of encouragement Constitutional Constitutional: Denies chills and Denies fever(s) Cardiovascular Cardiovascular: Denies chest pain Gastrointestinal Gastrointestinal: Reports abdominal pain Physical Exam 2 Vital Signs: Vital Signs: Last Vital Signs Temp 97.6 F 12/28/24 07:10 Pulse 75 12/28/24 07:10 Resp 16 12/28/24 07:10 BP 127/80 12/28/24 07:10 Pulse Ox 96 12/28/24 07:10 O2 Del Method Room Air 12/28/24 07:10 O2 Flow Rate 1.5 12/17/24 15:31 BMI result Body Mass Index 36.4 Appearing in no acute distress lung sounds are clear to auscultation heart regular rate rhythm, clear S1, S2 positive bowel sounds, abdomen is soft, nontender neuro patient is alert x3, no focal deficits Objective Data Active Medications Acetaminophen (Acetaminophen 325 Mg Tablet) 650 mg PO Q4H PRN PRN Reason: Pain, Mild 1-3,fever,headache Last Admin: 12/18/24 05:22 Dose: 650 mg Documented By: KALYAN Atorvastatin Calcium (Atorvastatin Calcium 80 Mg Tablet) 80 mg PO BEDTIME [facility] Last Admin: 12/27/24 20:26 Dose: 80 mg Documented By: JENNIFER Dextrose (Dextrose 50 % 25 Gm/50 Ml Syringe) 25 gm IVPUSH Q30M PRN PRN Reason: BG < 70 Docusate Sodium (Docusate Sodium 100 Mg Capsule) 100 mg PO BID PRN PRN Reason: Constipation Last Admin: 12/17/24 09:52 Dose: 100 mg Documented By: JENNA Enoxaparin Sodium (Enoxaparin Sodium 40 Mg/0.4 Ml Syringe) 40 mg SUBCUT Q24H [facility] Last Admin: 12/28/24 09:28 Dose: 40 mg Documented By: NERIS Gemfibrozil (Gemfibrozil 600 Mg Tablet) 600 mg PO BIDAC [facility] Last Admin: 12/28/24 07:50 Dose: 600 mg Documented By: NERIS Hydromorphone HCl (Hydromorphone Hcl 2 Mg Tablet) 2 mg PO TIDAC PRN PRN Reason: Pain, Severe (Pain Scale 7-10) Last Admin: 12/28/24 13:35 Dose: 2 mg Documented By: NERIS Insulin Glargine (Insulin Glargine,Hum.Rec.Anlog 100 Unit/Ml 10 Ml Vial) 15 unit SUBCUT BID [facility] Last Admin: 12/28/24 09:32 Dose: Not Given Documented By: NERIS Non-Admin Reason: Physician Held Med Insulin Human Lispro (Insulin Lispro 100 Unit/Ml 3 Ml Vial) 0 unit SUBCUT QIDACHS [facility]; Protocol Last Admin: 12/28/24 11:18 Dose: Not Given Documented By: NERIS Non-Admin Reason: No Insulin Coverage Omeprazole (Omeprazole 20 Mg Capsule.Dr) 20 mg PO DAILY@629 [facility] Last Admin: 12/28/24 05:52 Dose: 20 mg Documented By: JENNIFER Ondansetron HCl (Ondansetron Hcl 4 Mg/2 Ml Vial) 4 mg IVPUSH Q6H PRN PRN Reason: Nausea and Vomiting Last Admin: 12/19/24 19:43 Dose: 4 mg Documented By: KALYAN Oxycodone HCl (Oxycodone Hcl Immed Release 5 Mg Tablet) 10 mg PO Q6H PRN PRN Reason: Pain, Severe (Pain Scale 7-10) Last Admin: 12/28/24 02:55 Dose: 10 mg Documented By: DMITRI Pharmacy Consult (Consult Rx Parenteral Nutrition Ordering) 1 each MISCELLANE DAILY PRN PRN Reason: Consult order Polyethylene Glycol (Polyethylene Glycol 3350 17 Gm Powd.Pack) 17 gm PO DAILY PRN PRN Reason: Constipation Last Admin: 12/16/24 19:40 Dose: 17 gm Documented By: ROSITA-WANG Sodium Chloride (0.9 % Sodium Chloride Flush 3 Ml Syringe) 3 ml IVFLUSH [facility] Last Admin: 12/28/24 09:17 Dose: Not Given Documented By: NERIS Non-Admin Reason: No Access Sodium Chloride (0.9 % Sodium Chloride Flush 10 Ml Syringe) 10 ml IVFLUSH [facility] Last Admin: 12/28/24 09:18 Dose: Not Given Documented By: NERIS Non-Admin Reason: No Access Trazodone HCl (Trazodone Hcl 25 Mg Halftab) 25 mg PO BEDTIME [facility] PRN PRN Reason: Sleep Last Admin: 12/28/24 00:29 Dose: 25 mg Documented By: JENNIFER Labs 12/27/24 05:36 12/27/24 05:36 Labs: Laboratory Results - last 24 hr 12/27/24 12/27/24 12/28/24 16:24 20:21 07:10 POC Glucose 118 H 93 101 12/28/24 11:06 POC Glucose 115 Assessment and Plan (1) DKA (diabetic ketoacidosis): Status: Acute (2) Hypertriglyceridemia: Status: Acute (3) Acute pancreatitis: Status: Acute Plan 29M PMH metabolic syndrome with morbid obesity, uncontrolled DM, HTN, hypertriglyceridemia with history of pancreatitis, NAFLD, 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 of note had stroke alert 12/08/24 for facial parasthesias SIRS due to hypertriglyceridemia induced acute pancreatitis On statin and gemfibrozil, triglycerides have decreased from 5000 to 280 continue PPI b.i.d persistent pain, still requiring narcotics s/p TPN, tolerating liquids and protein supplements, regular diet will wean to po pain meds l ambulate repeat abd CT results pending GI following CAP Pneumonia MRSA swab negative discontinued vancomycin, s/p 10 days of Zosyn on room air blood cultures negative DKA Resolved, continue basal bolus insulin Episode of paresthesias with twitching Seen by Neuro>unlikely CVA/TIA Metabolic syndrome/obesity. BMI 37.4 Weight loss recommended Glomus jugulare tumor Continue to follow up outpatient with rad/onc, Dr. Iglesias DVT prophylaxis with Lovenox Full Code Quality Stroke Does the patient have a stroke diagnosis?: No VTE Prior VTE?: No VTE Risk Level:: Medical - moderate - high VTE Device Contraindication: N/A - Device Ordered VTE Drug Contraindication: N/A - Med Ordered
[2024-12-28 16:25] LABS: Glucose, Whole Blood 100 mg/dL (60-115)
[2024-12-28 16:28] VITALS: BP 120/69; PULSE 72; RESP 12; TEMP 36.7; O2SAT 94
[2024-12-28] MEDS: 0.9 % Sodium Chloride Flush 3 ML SYRINGE IVFLUSH (17:40)
[2024-12-28 20:00] VITALS: BP 118/64; PULSE 80; RESP 20; TEMP 36.1; O2SAT 95
[2024-12-28 21:04] LABS: Glucose, Whole Blood 138 mg/dL (60-115)
[2024-12-28] MEDS: Atorvastatin Calcium 80 MG TABLET PO (21:50)
[2024-12-29 03:17] VITALS: BP 117/66; PULSE 73; RESP 18; TEMP 36.4; O2SAT 94
[2024-12-29] MEDS: oxyCODONE HCl Immed Release 5 MG TABLET 10 MG PO (03:23)
[2024-12-29 06:00] VITALS: BMI 35.5
[2024-12-29] MEDS: Omeprazole 20 MG CAPSULE.DR PO (06:09)
[2024-12-29 07:16] LABS: Glucose, Whole Blood 106 mg/dL (60-115)
[2024-12-29] MEDS: Enoxaparin Sodium 40 MG/0.4 ML SYRINGE SUBCUT (07:46)
[2024-12-29] MEDS: gemfibroziL 600 MG TABLET PO (07:46)
[2024-12-29] MEDS: HYDROmorphone HCl 2 MG TABLET PO (07:46)
[2024-12-29] MEDS: 0.9 % Sodium Chloride Flush 3 ML SYRINGE IVFLUSH (07:49)
[2024-12-29 07:53] VITALS: BP 123/69; PULSE 66; RESP 18; TEMP 36.4; O2SAT 96
--- NOTE | 2024-12-29 11:23 | PM.DS ---
DS: Providers Provider Date of Service: 12/29/24 Date of admission: 12/08/24 00:12 Date of discharge: 12/29/24 Primary care physician: Unknown Physician Consults: 12/10/24 15:09 Consult to Neurology Routine Consulting Provider: [facility] Reason for consultation: facial numbness /ct -?Mild interval increase in size of the lytic lesion 12/13/24 07:06 Consult to Gastroenterology Routine Consulting Provider: Syed Eisenberg Reason for consultation: worsening hyperTG pancreatitis (phlegmon, free fluid) 12/13/24 12:13 Consult to General Surgery Routine Consulting Provider: [facility] Sur[facility] Reason for consultation: sever hyperTG pancreatitis with phlegmon and free fluid DS: Diagnosis Discharge Diagnosis (1) DKA (diabetic ketoacidosis): Status: Acute (2) Hypertriglyceridemia: Status: Acute (3) Acute pancreatitis: Status: Acute DS: Summary Hospital Course Hospital Course: 29-year-old male with a past medical history of diabetes mellitus, asthma and obesity who presented to emergency department with bilateral flank pain and abdominal pain for 2 days.? Patient also reported poor appetite, severe pain even with sips of water. He is also experiencing a diffuse headache without dizziness, vision changes, no neck pain or neck stiffness. He denies any recent illness. Denies any fevers or chills. Denies any genitourinary symptoms. In the emergency department laboratory data was significant for WBC 4.6, serum sodium 134, serum bicarb 5, anion gap 30, alk phos 129, AST 41, lipase was 1531, beta hydroxybutyrate 3.64, triglycerides 5289 and total cholesterol 718. IMAGING: ABDOMINAL CT:? Consistent with acute pancreatitis with severe pancreatic fat stranding.? No evidence of necrosis/fluid collection Hypertriglyceridemia induced pancreatitis. Patient initially presented with bilateral flank pain and abdominal pain for 2 days prior to admission, he reported poor appetite and severe pain even with just sips of water. He had also been experiencing diffuse headache without dizziness, vision changes or neck pain or stiffness. His initial triglyceride level was noted to be 5289. Abdominal CT showed acute pancreatitis with severe pancreatic fat stranding without evidence of necrosis or fluid collection patient was initially treated with insulin drip. Patient then started on gemfibrozil and statin. Unfortunately patient continued to have worsening symptoms especially with advancement of diet. Patient was made NPO. CT scan on 12/14/2024 showed phlegmon and free fluid patient was started on TPN on 12/16/2024. On 12/18/2024 diet was advanced to solids and patient was started to be weaned off of IV narcotics. Patient can continue to complain of persistent pain and MRI was done on 12/22/2024 and there was a question of necrosis versus chronic changes. At that time he was started on PPI b.i.d., Carafate, gabapentin. On repeat abdominal CT showed improvement with no pancreatic necrosis but diet downgraded to full liquids. On 12/2024 PPN was stopped and patient was again advanced to regular diet. Seen again by Gastroenterology who recommended repeat abdominal CT with contrast which was done on 12/28/2024 which showed no necrosis but continued complex pseudocyst. Discussed this with Gastroenterology and plan will be for patient to follow up with GI outpatient to have a repeat abdominal CT scan. At some point patient will require drainage of pseudocyst this would likely need to be done at a tertiary care facility. Plan is for patient to be sent home with pain medications, instructed to eat bland diet, drink plenty of fluids, ambulate. Patient and his significant other are in agreement with this. One point a stroke alert was called on 12/08/2024 for left-sided facial twitching and weakness, patient was fully evaluated and seen by neurologist who did not think symptoms were related to stroke. No further episodes of these type of symptoms during his hospitalization were noted. Head CT negative. Seen evaluated by Neurology who did not think this was related to any acute abnormality and no further neurological consultation was as needed. Community-acquired pneumonia. Chest x-ray on 12/16/2024 showed left-sided consolidation. MRSA swab negative therefore vancomycin was discontinued. Treated with a total of 10 days of Zosyn, patient has not required oxygen and has remained on room air. Blood cultures have remained negative to date. Diabetes mellitus type 2 with diabetic ketoacidosis. Treated in the ICU on insulin drip. Resolved and further treated with Lantus and sliding scale insulin. Continue metformin Metabolic syndrome/severe obesity. BMI 35.5. 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 Iglesias Time Attestation Discharge Coordination Time (in mins): 50 Quality: Safe Use of Opioids Does Pt have an Active Cancer Diagnosis on the Problem List?: No Quality: Stroke Does the patient have a stroke diagnosis?: No Physical Exam Vital Signs: Vital Signs: Last Vital Signs Temp 97.6 F 12/29/24 07:53 Pulse 66 12/29/24 07:53 Resp 18 12/29/24 07:53 BP 123/69 12/29/24 07:53 Pulse Ox 96 12/29/24 07:53 O2 Del Method Room Air 12/29/24 07:53 O2 Flow Rate 1.5 12/17/24 15:31 BMI result Body Mass Index 35.5 Appearing in no acute distress head is normocephalic atraumatic eyes pupils are PERRLA sclera is anicteric mouth throat mucous membranes are intact and moist neck is supple no lymphadenopathy, no JVD noted lung sounds are clear to auscultation heart regular rate rhythm, clear S1, S2 positive bowel sounds, abdomen is soft, nontender neuro patient is alert x3, no focal deficits DS: Data Data Completed and Pending Labs on day of discharge: Laboratory Results - last 24 hr 12/28/24 12/28/24 12/29/24 16:22 21:00 07:11 POC Glucose 100 138 H 106 Discharge Plan Discharge Anticipated Discharge Date/Time: 12/29/24 11:47 Patient Disposition: Home, Self-Care Discharge Diagnosis: Pancreatitis Hypertriglyceridemia Pneumonia Referrals: Syed Eisenberg MD [Physician, Gastroenterology] - 1 Week Referral Note: Follow-up repeat imaging Problems: Pancreatitis; Hypertriglyceridemia Discharge Medications: New atorvastatin 80 mg Tablet 80 mg PO BEDTIME Qty: 30 0RF gemfibrozil 600 mg Tablet 600 mg PO DAILY Qty: 30 0RF hydromorphone 2 mg Tablet 2 mg PO TIDAC PRN (Reason: Pain, Severe (Pain Scale 7-10)) Qty: 30 0RF Rx Instructions: Partial Fill upon patient request. omeprazole 20 mg Capsule,Delayed Release(Dr/Ec) 20 mg PO DAILY@0630 Qty: 30 0RF Continued metformin 750 mg tablet extended release 24 hr 750 mg PO BID Discharge Orders: Discharge Order (Routine); Ordered 12/29/24 Ordered By: Perla Childs Diet: Advance to usual diet Activity on Discharge: As tolerated Stand Alone Forms: Patient Portal Discharge page Print Language: Taiwanese Care Plan Goals: Schedule an appointment with Gastroenterology within 1-2 weeks [place] diet for the next week, drink plenty of fluids Ambulate Health Concerns: Pancreatitis Hypertriglyceridemia Pneumonia Plan of Treatment: Follow up with the primary care provider at next scheduled appointment Take all medications as prescribed Assessment: See discharge summary
[2024-12-29 11:27] LABS: Glucose, Whole Blood 97 mg/dL (60-115)
[2024-12-29 12:17] VITALS: BP 120/77; PULSE 85; RESP 18; TEMP 36.1; O2SAT 97
--- NOTE | 2024-12-29 12:22 | MHC.CM.PN ---
PT TO DC HOME WITH NO SERVICES TODAY VIA PRIVATE TRANSPORT
== END 2024-12-29 12:24 | disposition home or self-care (01) | DRG 282 ==
LOC: HO.ED 12-08 00:07 → HO.EDOVER 12-08 00:22 → HO.ICU 12-08 00:26 → HO.S3 12-10 09:51
PROVIDERS: Hospitalist; Internal Medicine; Internal Medicine Critical Care Medicine; Internal Medicine Pulmonary Disease; Nurse Practitioner Family; Physician Assistant Medical; Student in an Organized Health Care Education/Training Program; Admitting Provider Registered Nurse Community Health; Emergency Provider Emergency Medicine; Visit Provider Nurse Practitioner Acute Care
DX: K85.90 Acute pancreatitis without necrosis or infection, unspecified (principal); E11.10 Type 2 diabetes mellitus with ketoacidosis without coma; N17.9 Acute kidney failure, unspecified; J18.9 Pneumonia, unspecified organism; R65.10 Systemic inflammatory response syndrome (SIRS) of non-infectious origin without acute organ dysfunction; Z68.37 Body mass index [BMI] 37.0-37.9, adult; E88.810 Metabolic syndrome; R20.2 Paresthesia of skin; E66.01 Morbid (severe) obesity due to excess calories; Z71.3 Dietary counseling and surveillance; J45.909 Unspecified asthma, uncomplicated; D35.6 Benign neoplasm of aortic body and other paraganglia; E87.1 Hypo-osmolality and hyponatremia; Z79.84 Long term (current) use of oral hypoglycemic drugs; Z79.899 Other long term (current) drug therapy
CPT/HCPCS: 36415; 36573; 70450; 71045; 74177; 74183; 76705; 80048; 80053; 80061; 80076; 80202; 81001; 82010; 82040; 82530; 82728; 82803; 82947; 83036; 83540; 83605; 83690; 83735; 84100; 84443; 84478; 84484; 85007; 85025; 85027; 85379; 85610; 85652; 86140; 87040; 87493; 87640; 87641; 93005; 97116; 97162; 99285; A9585; C1751; C1894; J0613; J1171; J1308; J1650; J1885; J2270; J2405; J2543; J3010; J3370; J3371; J3430; J3475; J3480; J7120; Q9967

== ENCOUNTER → 2024-12-07 21:40 | Outpatient (BNV) | payer MEDICAID, SELFPAY | PROVIDERS: Admitting Provider Registered Nurse Community Health; Emergency Provider Emergency Medicine; Visit Provider Radiology Diagnostic Radiology | DX: K85.90 Acute pancreatitis without necrosis or infection, unspecified (principal) | CPT/HCPCS: 74177 ==

== ENCOUNTER → 2024-12-07 21:53 | Outpatient (BNV) | payer MEDICAID, SELFPAY | PROVIDERS: Admitting Provider Registered Nurse Community Health; Emergency Provider Emergency Medicine; Visit Provider Internal Medicine Cardiovascular Disease | DX: R94.31 Abnormal electrocardiogram [ECG] [EKG] (principal); R10.9 Unspecified abdominal pain | CPT/HCPCS: 93010 ==

== ENCOUNTER 2024-12-08 00:12 | Outpatient (BNV) | payer MEDICAID, SELFPAY | END 2024-12-12 18:39 | PROVIDERS: Admitting Provider Registered Nurse Community Health; Emergency Provider Emergency Medicine; Visit Provider Radiology Vascular & Interventional Radiology | DX: R10.9 Unspecified abdominal pain (principal) | CPT/HCPCS: 74177 ==

== ENCOUNTER 2024-12-08 00:12 | Outpatient (BNV) | payer MEDICAID, SELFPAY | END 2024-12-22 12:28 | PROVIDERS: Admitting Provider Registered Nurse Community Health; Emergency Provider Emergency Medicine; Visit Provider Radiology Diagnostic Radiology | DX: R16.2 Hepatomegaly with splenomegaly, not elsewhere classified (principal); R18.8 Other ascites; J94.8 Other specified pleural conditions | CPT/HCPCS: 74183 ==

== ENCOUNTER 2024-12-08 00:12 | Outpatient (BNV) | payer MEDICAID, SELFPAY | END 2024-12-28 08:00 | PROVIDERS: Admitting Provider Registered Nurse Community Health; Emergency Provider Emergency Medicine; Visit Provider Radiology Diagnostic Radiology | DX: K86.3 Pseudocyst of pancreas (principal) | CPT/HCPCS: 74177 ==

== ENCOUNTER 2024-12-08 00:12 | Outpatient (BNV) | payer MEDICAID, SELFPAY | END 2024-12-08 15:38 | PROVIDERS: Admitting Provider Registered Nurse Community Health; Emergency Provider Emergency Medicine; Visit Provider Radiology Diagnostic Radiology | DX: D16.4 Benign neoplasm of bones of skull and face (principal) | CPT/HCPCS: 70450 ==

== ENCOUNTER 2024-12-08 00:12 | Outpatient (BNV) | payer MEDICAID, SELFPAY | END 2024-12-23 15:20 | PROVIDERS: Admitting Provider Registered Nurse Community Health; Emergency Provider Emergency Medicine; Visit Provider Radiology Diagnostic Radiology | DX: K86.3 Pseudocyst of pancreas (principal); R10.9 Unspecified abdominal pain | CPT/HCPCS: 74177 ==

== ENCOUNTER 2024-12-08 00:12 | Outpatient (BNV) | payer MEDICAID, SELFPAY | END 2024-12-16 20:36 | PROVIDERS: Admitting Provider Registered Nurse Community Health; Emergency Provider Emergency Medicine; Visit Provider Radiology Neuroradiology | DX: R05.9 Cough, unspecified (principal) | CPT/HCPCS: 71045 ==

== ENCOUNTER 2024-12-08 00:12 | Outpatient (BNV) | payer MEDICAID, SELFPAY | END 2024-12-08 15:16 | PROVIDERS: Admitting Provider Registered Nurse Community Health; Emergency Provider Emergency Medicine; Visit Provider Internal Medicine | DX: Z13.6 Encounter for screening for cardiovascular disorders (principal) | CPT/HCPCS: 93010 ==

== ENCOUNTER 2024-12-08 00:12 | Outpatient (BNV) | payer MEDICAID, SELFPAY | END 2024-12-14 10:44 | PROVIDERS: Admitting Provider Registered Nurse Community Health; Emergency Provider Emergency Medicine; Visit Provider Radiology Vascular & Interventional Radiology | DX: K76.0 Fatty (change of) liver, not elsewhere classified (principal) | CPT/HCPCS: 76705 ==

== ENCOUNTER → 2024-12-08 00:12 | Outpatient (BNV) | payer MEDICAID, SELFPAY | PROVIDERS: Admitting Provider Registered Nurse Community Health; Emergency Provider Emergency Medicine; Visit Provider Psychiatry & Neurology Neurology | DX: M89.9 Disorder of bone, unspecified (principal) | CPT/HCPCS: 99222 ==

== ENCOUNTER → 2024-12-08 00:12 | Outpatient (BNV) | payer MEDICAID, SELFPAY | PROVIDERS: Admitting Provider Registered Nurse Community Health; Emergency Provider Emergency Medicine; Visit Provider Student in an Organized Health Care Education/Training Program | DX: E78.1 Pure hyperglyceridemia (principal) | CPT/HCPCS: 99232; 99233; 99499 ==

== ENCOUNTER → 2024-12-08 00:12 | Outpatient (BNV) | payer MEDICAID, SELFPAY | PROVIDERS: Admitting Provider Registered Nurse Community Health; Emergency Provider Emergency Medicine; Visit Provider Registered Nurse Community Health | DX: K85.90 Acute pancreatitis without necrosis or infection, unspecified (principal); E78.1 Pure hyperglyceridemia; E87.20 Acidosis, unspecified; E11.10 Type 2 diabetes mellitus with ketoacidosis without coma; I95.9 Hypotension, unspecified; D72.819 Decreased white blood cell count, unspecified | CPT/HCPCS: 99223 ==

== ENCOUNTER → 2024-12-08 00:12 | Outpatient (BNV) | payer MEDICAID, SELFPAY | PROVIDERS: Admitting Provider Registered Nurse Community Health; Emergency Provider Emergency Medicine; Visit Provider Internal Medicine Pulmonary Disease | DX: E78.1 Pure hyperglyceridemia (principal); E11.10 Type 2 diabetes mellitus with ketoacidosis without coma; K85.90 Acute pancreatitis without necrosis or infection, unspecified | CPT/HCPCS: 99232 ==

== ENCOUNTER → 2024-12-08 00:12 | Outpatient (BNV) | payer MEDICAID, SELFPAY | PROVIDERS: Admitting Provider Registered Nurse Community Health; Emergency Provider Emergency Medicine | DX: K85.80 Other acute pancreatitis without necrosis or infection (principal) | CPT/HCPCS: 99222; 99232 ==

== ENCOUNTER 2025-01-10 02:08 | Emergency (ER) | payer MEDICAID, SELFPAY ==
[2025-01-10 02:12] VITALS: BP 130/71; PULSE 79; RESP 18; TEMP 37.2; O2SAT 97; BMI 35.6
[2025-01-10 02:35] LABS: MANUAL DIFF FLAG NO
--- NOTE | 2025-01-10 02:36 | ED_ITS ---
HPI - Male Genitourinary General Chief complaint: Urogenital-Male Stated complaint: blood in urine Time Seen by Provider: 01/10/25 02:35 Source: patient Mode of arrival: ambulatory Limitations: no limitations History of Present Illness ED Provider: Nino STEVENSON HPI Narrative: The patient is a 29-year-old male presenting to the ED for evaluation of hematuria twice today. Patient reports slight burning with urination but denies associated fever/chills, suprapubic pain, or urinary urgency/frequency. The patient reports he was just recently discharged from this facility for pancreatitis. Chart review reveals the patient was admitted on 12/07 for acute triglyceride induced pancreatitis, patient experienced an extended hospital stay with time in the ICU, treatment for DKA, TPN for inability to tolerate p.o. secondary to pancreatitis, and was discharged on 12/29. The patient reports he has had continued epigastric abdominal pain and postprandial vomiting at home, however state that this is unchanged and not contributing to his ED visit tonight. Patient denies any non postprandial vomiting today. The patient states he did not undergo any cystoscopy, catheterization, or other instrumentation of the urinary tract during his hospital admission. The patient reports he was on Lovenox therapy during admission, but was not discharged on any anticoagulation. The patient also reports a history of a glomus jugulare tumor which is managed by based a Oncology, last received radiation in September, no recent radiation and chemotherapy. Related Data Home Medications ?Medication ?Instructions ?Recorded ?Confirmed metformin 750 mg tablet,extended 750 mg PO BID 5 12/08/24 release 24 hr Previous Rx's ?Medication ?Instructions ?Recorded atorvastatin 80 mg tablet 80 mg PO BEDTIME #30 tabs gemfibrozil 600 mg tablet 600 mg PO DAILY #30 tabs hydromorphone 2 mg tablet 2 mg PO TIDAC PRN Pain, Kalpana re 12/29/24 (Pain Scale 7-10) #30 tabs omeprazole 20 mg capsule,delayed 20 mg PO DAILY@0630 # 30 caps 12/29/24 release cefuroxime axetil 500 mg tablet 500 mg PO Q12H #20 tab s 01/10/25 Allergies Allergy/AdvReac Type Severity Reaction Status Date / Time shellfish derived (SHELLFISH Allergy Intermediate RASH Verified 01/10/25 02:18 DERIVED) Review of Systems 2 Review of Systems: Yes all other systems are reviewed and are negative PMFSH Past Medical History Medical History (Updated 01/10/25 @ 03:12 by Nino Dodson PA-C) Skull lesion Hypertriglyceridemia Acute pancreatitis Diabetes mellitus Asthma No known health problems Family History Family History Maternal Grandmother Diabetes Social History Social History Household Members: Significant Other Housing: Apartment Do you presently have visiting nurse or other home services: No Alcohol intake: never Comment: Spouse at bedside Patient Tobacco Use Status: Never used Tobacco Smoked in Last 30 Days: No Use of substances other than those prescribed or required for medical reasons: No service: No Current occupational status: employed Physical Exam 2 Vital Signs: Vital Signs: Last Vital Signs Temp 98.9 F 01/10/25 02:12 Pulse 79 01/10/25 02:12 Resp 18 01/10/25 02:12 BP 130/71 01/10/25 02:12 Pulse Ox 97 01/10/25 02:12 O2 Del Method Room Air 01/10/25 02:12 BMI result Body Mass Index 35.6 CONSTITUTIONAL: The patient appears non-toxic, well nourished and in no acute distress. Vital signs as documented. HEAD: Atraumatic, normocephalic. EYES: EOMs grossly intact, pupils equal, conjunctiva clear, no exudate. ENT: Nares patent, no discharge. Airway patent, no audible stridor, visible mucosa is pink and moist without noted lesions. NECK: Trachea is midline, no obvious masses or gross abnormalities. CHEST: Symmetric movement, normal appearance. LUNGS: LS present and CTAB, no w/r/r. Non-labored work of breathing. CARDIAC: Regular Rhythm, S1/S2 appreciated, no murmurs, rubs or gallops. ABDOMEN: Abdomen soft x4 quadrants, mild epigastric abdominal tenderness, patient reports this is unchanged from baseline, no lower abdominal or suprapubic tenderness. CVAT negative bilaterally. No palpable masses or organomegaly. : Deferred. EXTREMITIES: Normal tone, moves all extremities spontaneously without reported pain. No obvious acute injury or deformity noted. NEURO: Alert and oriented x3, CN II-XII appear grossly intact. Cerebellar Functioning grossly intact. No obvious sensory or motor deficits. Speech clear and appropriate. PSYCH: normal affect, appropriate eye contact, fluid speech, with appropriate response to questioning. No reported suicidality or homicidality. SKIN: Warm, dry, color appropriate, normal turgor. No rashes noted. Medical Decision Making Medical Decision Making [facility] Narrative: 3:03 AM 01/10/2025 (Agustina STEVENSON): The patient is a 29-year-old male presenting to the ED for evaluation of hematuria x2 today. The patient had a recent extended admission at this facility but without any reported catheterization or other instrumentation of his urinary tract. The patient had radiation therapy of his neck between July and September, no recent radiation. The patient's exam reveals no concern for pyelonephritis or obstructing kidney stone. The patient was evaluated with urinalysis and basic laboratory workup. The patient's laboratory evaluation has resulted and shows no leukocytosis, significant anemia, SINDY, or electrolyte abnormality. The patient's urinalysis is consistent with a UTI, UA shows positive nitrates, moderate leukocyte esterase, RBCs, WBCs with WBC clumps, and 2+ bacteria without squamous epithelial cells. The cause for the patient's UTI is not entirely clear, however patient is well-appearing, afebrile, and hemodynamically stable, there is no indication for readmission at this time. The patient will be treated with cefuroxime and discharged to follow up with PCP. Admission/Observation Consideration of admission/observation: Escalation of care including admission/observation considered Lab Data [facility] Lab Attestation statement: I reviewed the patient's lab results. 01/10/25 02:30 01/10/25 02:30 Labs: Lab Results 01/10/25 01/10/25 Range/Units 02:29 02:30 WBC 5.7 (4.8-10.8) X10*3/uL RBC 4.21 L (4.60-5.80) X10*6/uL Hgb 11.1 L (14.0-18.0) g/dl Hct 32.6 L (42.0-52.0) % MCV 77.4 L (80.0-98.0) fL MCH 26.4 L (27.0-33.0) pg MCHC 34.0 (31.0-36.0) g/dl RDW 15.5 (11.0-16.0) % Plt Count 429 H D (160-400) X10*3/uL MPV 9.1 L (9.4-12.4) fL Immature Gran % (Auto) 0.2 (0.0-0.4) % Neut % (Auto) 52.1 (45-73) % Lymph % (Auto) 31.5 (20-40) % [place] % (Auto) 10.3 (2-11) % Eos % (Auto) 4.8 H (0-4) % Baso % (Auto) 1.1 (0-2) % Lymph # (Auto) 1.8 (1.2-4.9) X10*3/uL [place] # (Auto) 0.6 (0.1-1.2) X10*3/uL Eos # (Auto) 0.3 (0.0-0.4) X10*3/uL Baso # (Auto) 0.1 (0.0-0.2) X10*3/uL Abs Immat Gran (auto) 0.01 (0.00-0.03) X10*3/uL Absolute Neuts (auto) 3.0 (2.0-8.3) x10*3/uL Absolute Nucleated RBC 0.000 (0.0-0.012) X10*3/uL Nucleated RBC % (auto) 0.0 (0.0-0.2) /100WBC Sodium 143 (135-145) mmol/L Potassium 4.0 (3.3-5.1) mmol/L Chloride 107 (96-108) mmol/L Carbon Dioxide 21 L (22-29) mmol/L Anion Gap 19 (12-20) BUN 12 (9-16) mg/dL Creatinine 0.96 (0.5-1.4) mg/dL Estim Creat Clear Calc 165.8 Estimated GFR > 60 Random Glucose 137 H (60-115) mg/dL Calcium 9.0 (8.4-10.2) mg/dL Total Bilirubin 0.4 (0.0-1.0) mg/dL AST 25 (5-37) U/L ALT 26 (0-40) U/L Alkaline Phosphatase 100 (39-117) U/L Total Protein 7.9 (6.5-8.0) g/dL Albumin 3.6 (3.5-5.0) g/dL Urine Color RED Urine Appearance Hazy Urine pH 5.5 (5.0-9.0) Ur Specific [place] >= 1.030 H (1.005-1.025) Urine Protein 100 (2+) H (Neg-Trace) mg/dL Urine Glucose (UA) Negative (Negative) mg/dL Urine Ketones Trace (Negative) mg/dL Urine Blood Large (3+) H (Negative) Urine Nitrite Positive H (Negative) Ur Leukocyte Esterase Moderate (2+) H (Negative) Urine RBC >20 H (0-2) /HPF Urine WBC 6-10 H (0-5) /HPF Urine WBC Clumps Present Ur Squamous Epith Cells 0-2 (0-2) /HPF Urine Bacteria 2+ (None Seen) Hyaline Casts 0-2 (0-2) /LPF Discharge Plan Discharge Clinical Impression: Urinary tract infection Qualifiers: Urinary tract infection type: acute cystitis Hematuria presence: with hematuria Qualified Code(s): N30.01 - Acute cystitis with hematuria Patient Disposition: Home, Self-Care Instructions: Urinary Tract Infection in Men (ED) Additional Instructions: Thank you for choosing [facility]'s Emergency Department for your care today. Your urinalysis today shows that you are suffering from a urinary tract infection which is likely causing the blood in your urine. The exact cause of your urinary tract infection is not entirely clear, thankfully however your laboratory evaluation shows no evidence of acute kidney dysfunction, systemic infection, or electrolyte abnormality, your vital signs are stable and there is no evidence of an acute emergent process requiring re-admission to the hospital or continued ED observation, and it is safe to discharge you home. Please take cefuroxime twice daily as prescribed until finished. Please follow up with your GI physician and your primary care physician for re- evaluation, additional management of your symptoms, and continued preventative care. If you do not have a primary care physician, please call the [facility] at [phone] to establish a new primary care physician. While waiting to establish your new primary care physician, you can call our Walk[facility]in [facility] at [phone] for non-emergency needs. Please return to the emergency department if you develop a severe or sudden change in your symptoms, a fever over 100.4 that does not improve with Tylenol or Ibuprofen, recurrent vomiting, or any other new or worsening symptoms or concerns. Prescriptions: New cefuroxime axetil 500 mg tablet 500 mg PO Q12H Qty: 20 0RF No Action metformin 750 mg tablet extended release 24 hr 750 mg PO BID atorvastatin 80 mg Tablet 80 mg PO BEDTIME Qty: 30 0RF gemfibrozil 600 mg Tablet 600 mg PO DAILY Qty: 30 0RF hydromorphone 2 mg Tablet 2 mg PO TIDAC PRN (Reason: Pain, Severe (Pain Scale 7-10)) Qty: 30 0RF Rx Instructions: Partial Fill upon patient request. omeprazole 20 mg Capsule,Delayed Release(Dr/Ec) 20 mg PO DAILY@0630 Qty: 30 0RF Referrals: Radha Bravo MD [Primary Care Provider, Internal Medicine] Clinical Impression: Urinary tract infection Print Language: Yemeni
[2025-01-10 02:41] LABS: Appearance Urine Hazy; Glucose Urine UA Negative (Negative); PH 5.5 (5.0-9.0); Specific Gravity - Urine >= 1.030 (1.005-1.025); UMIC TRIGGER UACC YES
[2025-01-10 02:44] LABS: Hematocrit 32.6 % (42.0-52.0); Hemoglobin 11.1 g/dl (14.0-18.0); Imm Gran Abs Auto 0.01 X10*3/uL (0.00-0.03); Imm Gran Pct Auto 0.2 % (0.0-0.4); Lymphocytes Absolute Auto 1.8 X10*3/uL (1.2-4.9); Mean Corpuscular HGB Conc 34.0 g/dl (31.0-36.0); Mean Corpuscular Hemoglobin 26.4 pg (27.0-33.0); Mean Corpuscular Volume 77.4 fL (80.0-98.0); NRBC Abs Auto 0.000 X10*3/uL (0.0-0.012); NRBC Pct Auto 0.0 /100WBC (0.0-0.2); Platelet Count 429 X10*3/uL (160-400); Red Blood Count 4.21 X10*6/uL (4.60-5.80); White Blood Count 5.7 X10*3/uL (4.8-10.8)
[2025-01-10 02:52] LABS: UACC Culture Trigger YES
[2025-01-10 02:54] LABS: Alanine Aminotransferase 26 U/L (0-40); Albumin Level 3.6 g/dL (3.5-5.0); Alkaline Phosphatase 100 U/L (39-117); Anion Gap 19 (12-20); Aspartate Amino Transferase 25 U/L (5-37); Blood Urea Nitrogen 12 mg/dL (9-16); Calcium 9.0 mg/dL (8.4-10.2); Carbon Dioxide 21 mmol/L (22-29); Chloride 107 mmol/L (96-108); Creatinine Clr Calc Pharmacy 165.8; Estimated Glomerular Filt Rate > 60; Potassium 4.0 mmol/L (3.3-5.1); Sodium 143 mmol/L (135-145); Total Protein 7.9 g/dL (6.5-8.0)
[2025-01-10 03:21] VITALS: BP 126/74; PULSE 81; RESP 16; TEMP 36.3; O2SAT 97
[2025-01-10 03:22] VITALS: BP 126/74; PULSE 81; RESP 16; TEMP 36.3; O2SAT 97
== END 2025-01-10 03:22 | disposition home or self-care (01) ==
PROVIDERS: Emergency Provider Emergency Medicine; PCP General Practice
DX: N30.01 Acute cystitis with hematuria (principal); R10.13 Epigastric pain; E11.9 Type 2 diabetes mellitus without complications; Z79.4 Long term (current) use of insulin; Z79.899 Other long term (current) drug therapy
CPT/HCPCS: 36415; 80053; 81001; 85025; 87086; 87088; 87186; 99283; 99284

== ENCOUNTER 2025-01-28 08:11 | Emergency (ER) | payer MEDICAID, SELFPAY ==
--- NOTE | 2025-01-28 08:28 | ED_ITS ---
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 States his significant other sick with similar symptoms. Took Tylenol last night but nothing this morning. Also complains of nausea but denies vomiting. Denies chest pain or palpitations. Denies abdominal pain. Denies fever. MD complaint: sore throat, headache Onset (ago): hour(s) Related Data Home Medications ?Medication ?Instructions ?Recorded ?Confirmed metformin 750 mg tablet,extended 750 mg PO BID 5 12/08/24 release 24 hr Previous Rx's ?Medication ?Instructions ?Recorded atorvastatin 80 mg tablet 80 mg PO BEDTIME #30 tabs gemfibrozil 600 mg tablet 600 mg PO DAILY #30 tabs hydromorphone 2 mg tablet 2 mg PO TIDAC PRN Pain, Kalpana re 12/29/24 (Pain Scale 7-10) #30 tabs omeprazole 20 mg capsule,delayed 20 mg PO DAILY@0630 # 30 caps 12/29/24 release cefuroxime axetil 500 mg tablet 500 mg PO Q12H #20 tab s 01/10/25 Allergies Allergy/AdvReac Type Severity Reaction Status Date / Time shellfish derived (SHELLFISH Allergy Intermediate RASH Verified 01/28/25 08:32 DERIVED) Review of Systems Review of Systems: As per HPI Yes all other systems are reviewed and are negative Constitutional: Constitutional: Reports as per HPI [facility] Past Medical History Medical History (Updated 01/28/25 @ 09:46 by Chelle Gray NP) Skull lesion Hypertriglyceridemia Acute pancreatitis Diabetes mellitus Asthma No known health problems Family History Family History Maternal Grandmother Diabetes Social History Social History Household Members: Significant Other Housing: Apartment Do you presently have visiting nurse or other home services: No Alcohol intake: never Comment: Spouse at bedside Patient Tobacco Use Status: Never used Tobacco Smoked in Last 30 Days: No Use of substances other than those prescribed or required for medical reasons: No Advance Directives: No Advance Directives Information Provided: Yes service: No Current occupational status: employed Physical Exam ED Vital Signs: Vital Signs - 24 hr 01/28/25 08:30 Temperature 97.7 F Pulse Rate 69 Respiratory Rate 16 Blood Pressure 149/78 H Pulse Oximetry 98 Oxygen Delivery Method Room Air BMI result Body Mass Index 36.0 Vital signs have been reviewed and appear to be correct. Blood pressure normal. Heart rate normal. Respiratory rate normal. Temperature normal. Oxygen saturation normal. Const General: cooperative, healthy appearing and no acute distress Orientation/consciousness: oriented to person, oriented to place, oriented to time and patient oriented x3 Limitations: no limitations HENMT Head: Yes normocephalic and Yes atraumatic Ears: external ears normal, TM's normal bilaterally and EAC's normal General nose exam: Normal external nose present, Normal nasal mucous membranes and turbinates present and Normal septum present Face and sinus: Yes face symmetric Mouth: oropharynx normal and moist mucous membranes Throat: Yes posterior oropharynx normal, Yes tonsils normal, Yes uvula midline and No uvular edema Eyes Pupils: Equal, round and reactive pupils present Neck Neck: Yes normal visual inspection, Yes no lymphadenopathy and Yes supple Resp Effort & Inspection: normal respiratory effort and able to speak in complete sentences Auscultation: clear to auscultation bilaterally Cardio Rate: regular rate Rhythm: regular rhythm Heart sounds: S1 normal heart sound present and S2 normal heart sound present GI Palpation (GI): Soft to palpation and nontender Auscultation: normoactive bowel sounds General: Yes no CVA tenderness Back/Spine/Pelvis Back: no CVA tenderness Skin General skin exam: elasticity normal and turgor normal Neuro General: oriented to person, oriented to place, oriented to time, patient oriented x3, moves all extremities, no focal motor deficits and CN's II-XI intact bilaterally Cranial nerves: Yes Equal, round and reactive pupils present Cognition (Neuro): normal cognition Extrem General: Yes full ROM, Yes no pedal edema and Yes no calf tenderness Psych Mental Status: mental status grossly normal Affect: normal affect Thought process: Normal thought process present Medications Administered Discontinued Medications Generic Name Dose Route Start Last Admin Trade Name Jocelin PRN Reason Stop Dose Admin Acetaminophen 975 mg 01/28/25 08:39 01/28/25 08:55 Acetaminophen 325 Mg Tablet PO 01/28/25 08:40 975 mg ONCE ONE Administration Ibuprofen 600 mg 01/28/25 08:39 01/28/25 08:55 Ibuprofen 600 Mg Tablet PO 01/28/25 08:40 600 mg ONCE ONE Administration Medical Decision Making Medical Decision Making [facility] Narrative: Patient is a 38-year-old female with no prior history of abdominal surgeries presenting to the emergency department with complaint of right upper quadrant pain with associated nausea and vomiting which began last night. On exam patient is awake, A+Ox3, VS WNL, afebrile, normal neurological exam without focal deficits, physical exam findings as above. Given reported symptoms and physical exam findings, initial differential includes but is not limited to viral URI, COVID, flu, RSV, strep pharyngitis. Unlikely bronchitis, pneumonias symptoms began this morning. Physical exam unremarkable. Strep swab negative, viral serology positive for COVID. Patient updated on results and all questions answered. Infection control precautions discussed with patient at bedside as well as return precautions. Patient verbalized understanding of and agreement with plan. In-person rubber press operator was utilized for all interactions, assessments, and discussions. Differential Diagnosis Differential Diagnoses: The differential diagnosis associated with the presentation includes as per [facility] Admission/Observation Consideration of admission/observation: Escalation of care including admission/observation considered Lab Data [facility] Lab Attestation statement: I reviewed the patient's lab results. As per [facility] Labs: Lab Results 01/28/25 Range/Units 08:35 Influenza Type A (PCR) NEGATIVE (Negative) Influenza Type B (PCR) NEGATIVE (Negative) RSV RNA Qual (PCR) NEGATIVE (Negative) SARS-CoV-2 RNA (RT-PCR) POSITIVE A (Negative) S. pyogenes GrpA RAMON Negative (Negative) External Record Review External record reviewed: Inpatient record, Office record and Outpatient record Discharge Plan Discharge Clinical Impression: COVID-19 Patient Disposition: Home, Self-Care Instructions: Droplet Precautions (ED), COVID-19 (Coronavirus Disease 2019) (ED), COVID-19: Slow the Coronavirus Spread (ED) Additional Instructions: You were evaluated in the emergency department today for sore throat, cough. Your COVID test was resulted as positive. You should continue to isolate at home for another 4 days. You should continue to wear mask for 5 days after that. Be sure to get plenty of rest, plenty of fluids. You can take 650 mg of Tylenol or 600 mg ibuprofen every 6 hours as needed for fever or discomfort. Return to the emergency department with worsening shortness of breath, chest pain, fever that does not improve with Tylenol or ibuprofen, persistent vomiting, or any other concerning symptoms. You should follow-up with your primary care provider. Prescriptions: No Action metformin 750 mg tablet extended release 24 hr 750 mg PO BID atorvastatin 80 mg Tablet 80 mg PO BEDTIME Qty: 30 0RF gemfibrozil 600 mg Tablet 600 mg PO DAILY Qty: 30 0RF hydromorphone 2 mg Tablet 2 mg PO TIDAC PRN (Reason: Pain, Severe (Pain Scale 7-10)) Qty: 30 0RF Rx Instructions: Partial Fill upon patient request. omeprazole 20 mg Capsule,Delayed Release(Dr/Ec) 20 mg PO DAILY@0630 Qty: 30 0RF cefuroxime axetil 500 mg tablet 500 mg PO Q12H Qty: 20 0RF Stand Alone Forms: Work/School Release Print Language: Russian
[2025-01-28 08:30] VITALS: BP 149/78; PULSE 69; RESP 16; TEMP 36.5; O2SAT 98; BMI 36.0
--- OUTSIDE RECORDS SUMMARY | 2025-01-28 09:02 | XMS_ITS | Clinical Summary ---
Author Organization [employer] Address [address] [place] [address] [address] [place] [address] Care Team Providers Care Airplane Cabin Attendant Name Role Phone Radha Bravo MD Primary Care Provider [phone] Medications atorvastatin (Lipitor) 80 MG tablet Take 1 tablet by mouth Once per day. Active gemfibrozil (Lopid) 600 MG tablet Take 1 tablet by mouth 2 times daily. 12/29/2024 Active metFORMIN XR (Glucophage-XR) 750 MG 24 hr tablet Take 1 tablet by mouth 2 times daily. 04/15/2024 Active omeprazole (PriLOSEC) [address] capsule Take 1 capsule by mouth before breakfast. 12/29/2024 Active Encounters Date Type Department Care Team Description 01/27/2025 Telephone [facility] [address] [place] [address] [id number] Radha Bravo MD Chart Prep 01/10/2025 Orders Only GENERIC EXTERNAL DATA DEPARTMENT Provider, Generic External Data 01/09/2025 Patient Outreach [facility] [address] [place] [phone] Radha Bravo MD Transition Of Care (Tcm) (HDF unscheduled ) 01/06/2025 Patient Outreach [facility] [address] [place] [address] [phone] Radha Bravo MD Transition Of Care (Tcm) (HDF- unscheduled LVM ) 01/06/[address] [phone] Radha Bravo MD Hospital Follow-up from Last 3 Months Immunizations Immunization Administration Dates Next Due Moderna Covid-19 Vaccine 12+ 05/25/2021 Tdap 04/10/2024 Social History Tobacco Use Types Packs/Day Years Used Date Smoking Tobacco: Never Assessed Sex and Gender Information Value Date Recorded Sex Assigned at Male 05/09/2022 10:37 AM EDT Legal Sex Male 10:37 AM EDT Gender Identity Male 05/09/2022 10:37 AM EDT Sexual Orientation Straight 05/09/2022 10 :37 AM EDT Last Filed Vital Signs Vital Sign Reading Time Taken Comments Blood Pressure 140/82 05/02/2022 12:10 AM EDT Pulse 72 05/02/2022 12:10 AM EDT Temperature - - Respiratory Rate - - Oxygen Saturation - - Inhaled Oxygen Concentration - - Weight 155 kg (341 lb 6.3 oz) 05/02/2022 12:10 A M EDT Height 187 cm (6' 1.62 ) 05/02/2022 12:10 AM EDT Body Mass Index 44.29 05/02/2022 12:10 AM EDT Plan of Treatment Upcoming Encounters Date Type Department Care Team (Late st Contact Info) Description 01/29/2025 2:15 PM EDT Office Visit [facility] [address] [place] [phone] Melia Perez MD [address] [place] [phone] 03/07/2025 1:45 PM EDT Office Visit [facility] [address] [place] [phone] Radha Bravo MD [address] [place] [phone] Health Maintenance Due Date Last Done Comments Depression Screening 1996 SDOH Screening 1996 Disability Screening 1996 Alcohol/Substance Use Screening 2008 Tobacco Screening 2008 Family Planning (PISQ) 2011 HPV Vaccines (1 - Male 3-dos e series) 2011 Hepatitis B Vaccines (1 of 3 - 19+ 3-dose series) 2015 COVID-19 Vaccine (2 - 2023-2 5 season) 2024 05/25/2021 Influenza Vaccine (#1) 2025 Lipid Panel 01/14/2026 01/14/2021 DTaP/Tdap/Td Vaccines (2 - T d or Tdap) 04/10/2034 04/10/2024 Zoster Vaccines (1 of 2) 2046 RSV Patients and Pa tients Aged 60 years or older (1 - 1-dose 75+ series) 2071 HIV Screening Completed 01/14/2021 Hepatitis C Screening Completed 01/14/2021 HIB Vaccines Aged Out No longer eligi ble based on patient's age to complete this topic Hepatitis A Vaccines Aged Out No long er eligible based on patient's age to complete this topic IPV Vaccines Aged Out No longer eligi ble based on patient's age to complete this topic Meningococcal B Vaccine Aged Out No l onger eligible based on patient's age to complete this topic Meningococcal Vaccine Aged Out No sadie eusebia eligible based on patient's age to complete this topic Pneumococcal Vaccine: Pediat rics (0 to 5 Years) and At-Risk Patients (6 to 49) Years Aged Out No longer eligi ble based on patient's age to complete this topic RSV under 20 months Aged Out No longe r eligible based on patient's age to complete this topic Rotavirus Vaccines Aged Out No longer eligible based on patient's age to complete this topic Procedures Procedure Name Priority Date/Time Associated Diagnosis Comments COMPREHENSIVE METABOLIC PANEL Routine 01/10/2025 2:30 AM EDT CBC WITH AUTO DIFFERENTIAL Routine 01/10/2025 2:30 AM EDT URINALYSIS, COMPLETE, WITH REFLEX TO CULTURE Routine 01/10/2025 2:29 AM EDT CULTURE, URINE, ROUTINE Routine 01/10/2025 12:00 AM EDT ZZZ HISTORICAL HEPATITIS C AB W/REFL TO HCV RNA, QN, PCR Routine 01/14/2021 3:46 PM EDT HIV 1/2 ANTIGEN/ANTIBODY, FOURTH GENERATION W/RFL Routine 01/14/2021 3:46 PM EDT LIPID PANEL, STANDARD Routine 01/14/2021 3:46 PM EDT from Last 3 Months or Most Recently Relevant to Health Maintenance Results * (ABNORMAL) CBC auto differential (01/10/2025 2:30 AM EDT) White Blood Count 5.7 4.8 - 10.8 X10*3/uL [facility] Red Blood Count 4.21(L) 4.60 - 5.80 X10*6/uL [facility] Hemoglobin 11.1(L) 14.0 - 18.0 g/dl [facility] Hematocrit 32.6(L) 42.0 - 52.0 % [facility] Mean Corpuscular Volume 77.4(L) 80.0 - 98.0 fL [facility] Mean Corpuscular Hemoglobin 26.4(L) 27.0 - 33.0 pg [facility] Mean Corpuscular HGB Conc 34.0 31.0 - 36.0 g/dl [facility] Red Cell Distribution Width 15.5 11.0 - 16.0 % [facility] Platelet Count 429(H) 160 - 400 X10*3/uL [facility] Mean Platelet Volume 9.1(L) 9.4 - 12.4 fL [facility] Neutrophils Percent Auto 52.1 45 - 73 % [facility] Imm Gran Pct Auto 0.2 0.0 - 0.4 % [facility] Lymphocytes Percent Auto 31.5 20 - 40 % [facility] Monocytes Percent Auto 10.3 2 - 11 % [facility] Eosinophils Percent Auto 4.8(H) 0 - 4 % [facility] Basophils Percent Auto 1.1 0 - 2 % [facility] NRBC Pct Auto 0.0 0.0 - 0.2 /100WBC [facility] Neutrophils Absolute Auto 3.0 2.0 - 8.3 x10*3/uL [facility] Imm Gran Abs Auto 0.01 0.00 - 0.03 X10*3/uL [facility] Lymphocytes Absolute Auto 1.8 1.2 - 4.9 X10*3/uL [facility] Monocytes Absolute Auto 0.6 0.1 - 1.2 X10*3/uL [facility] Eosinophils Absolute Auto 0.3 0.0 - 0.4 X10*3/uL [facility] Basophils Absolute Auto 0.1 0.0 - 0.2 X10*3/uL [facility] NRBC Abs Auto 0.000 0.0 - 0.012 X10*3/uL [facility] 01/10/2025 2:30 AM EDT 01/10/2025 2:33 AM EDT us Generic External Data Provider LAB BLOOD ORDERAB LES Final Result [facility] [address] [place] [address] [phone] * (ABNORMAL) Comprehensive Metabolic Panel (01/10/2025 2:30 AM EDT) Sodium 143 135 - 145 mmol/L [facility] Comment:Marked Lipemia. Inte rpret result with caution. Potassium 4.0 3.3 - 5.1 mmol/L [facility] Comment:Marked Lipemia. Inte rpret result with caution. Chloride 107 96 - 108 mmol/L [facility] Comment:Marked Lipemia. Inte rpret result with caution. Carbon Dioxide 21(L) 22 - 29 mmol/L [facility] Comment:Marked Lipemia. Inte rpret result with caution. Anion Gap 19 12 - 20 [facility] Urea Nitrogen (BUN) 12 9 - 16 mg/dL [facility] Comment:Marked Lipemia. Inte rpret result with caution. Creatinine, Serum 0.96 0.5 - 1.4 mg/dL [facility] Comment:Marked Lipemia. Inte rpret result with caution. Creatinine Clr Calc Pharmacy 165.8 [facility] Comment:eGFR (calculated fro m the MDRD study equation) and eCrCl(calculated from the Cockcroft-Gault equation) are based ondifferent parameters and may not yield comparable results.If eCrCl result is absurd, please check patient'sheight/weight. Estimated Glomerular Filt Rate >60 [facility] Comment:Chronic Kidney Disea se: Estimated GFR < 60 mL/min/[id number] Kidney Disease: Estimated GFR < 15 mL/min/1.73m2 Glucose 137(H) 60 - 115 mg/dL [facility] Comment:Marked Lipemia. Inte rpret result with caution. Calcium 9.0 8.4 - 10.2 mg/dL [facility] Comment:Marked Lipemia. Inte rpret result with caution. Bilirubin, Total 0.4 0.0 - 1.0 mg/dL [facility] Comment:Marked Lipemia. Inte rpret result with caution. Aspartate Amino Transferase 25 5 - 37 U/L [facility] Comment:Marked Lipemia. Inte rpret result with caution. Alanine Aminotransferase 26 0 - 40 U/L [facility] Comment:Marked Lipemia. Inte rpret result with caution. Total Protein 7.9 6.5 - 8.0 g/dL [facility] Comment:Marked Lipemia. Inte rpret result with caution. Albumin Level 3.6 3.5 - 5.0 g/dL [facility] Comment:Marked Lipemia. Inte rpret result with caution. Alkaline Phosphatase 100 39 - 117 U/L [facility] Comment:Marked Lipemia. Inte rpret result with caution. 01/10/2025 2:30 AM EDT 01/10/2025 2:33 AM EDT Narrative [facility] - 01/10/2025 2:54 AM EDT MODERATE LIPEMIA NOTED us Generic External Data Provider LAB BLOOD ORDERAB LES Final Result [facility] [address] [place] [phone] [phone] * (ABNORMAL) Urinalysis, Complete, with Reflex to Culture (01/10/2025 2:29 AM EDT) Color Urine RED [facility] Appearance Urine Hazy [facility] PH 5.5 5.0 - 9.0 [facility] Glucose Urine UA Negative Negative mg/dL [facility] Urine Blood Large (3+)(A) Negative [facility] Specific [place] - Urine >=1.030(H) 1.005 - 1.025 [facility] Urine Protein 100 (2+)(A) Neg-Trace mg/dL [facility] Urine Ketones Trace Negative mg/dL [facility] Nitrite Urine Positive(A) Negative [facility] Leukocyte Esterase Urine Moderate (2+)(A) Negative [facility] RBC Urine >20(A) 0 - 2 /HPF [facility] Urine WBC 6-10(A) 0 - 5 /HPF [facility] WBC CLUMPS, UR Present [facility] Urine Squamous Epithelial Cell 0-2 0 - 2 /HPF [facility] Urine Bacteria 2+ None Seen [facility] Hyaline Casts, Urine 0-2 0 - 2 /LPF [facility] 01/10/2025 2:29 AM EDT 01/10/2025 2:33 AM EDT [facility] - 01/10/2025 2:52 AM EDT 0228Urine, Clean Catch us Generic External Data Provider LAB URINE ORDERAB LES Final Result [facility] [address] [place] [phone] * Culture, Urine, Routine (01/10/2025 12:00 AM EDT) Urine Urine specimen obtained by clean catch procedure / Unknown 01/10/2025 01/10/2025 Comment:[facility] - 01/12/2025 7:41 AM EDT Escherichia coli Quant 10,000 to 50,000 cfu/mL Escherichia coli: Ampicillin >=32(R) Escherichia coli: Cefazolin (Urine) 16(S) Escherichia coli: Cefepime <=0.12(S) Escherichia coli: Ceftriaxone <=0.25(S) Escherichia coli: Ciprofloxacin 0.5(I) Escherichia coli: Gentamicin <=1(S) Escherichia coli: Nitrofurantoin <=16(S) Escherichia coli: Trimethoprim/Sulfamethoxazole >=320(R) Specimen Source: Urine clean catch us Generic External Data Provider LAB MICROBIOLOGY - GENERAL ORDERABLES Final Result Performing Organization Address City/[facility]/ZIP Co de Phone Number [facility] [address] [place] [address] [phone] * HEPATITIS C AB W/REFL TO HCV RNA, QN, PCR (01/14/2021 3:46 PM EDT) HEPATITIS C ANTIBODY NON-REACT CORY NON-REACT CORY [facility] INDEX 0.01 <1.00 [facility] Comment: HCV antibody was non-reactive. There is no laboratory evidence of HCV infection. In most cases, no further action is required. However, if recent HCV exposure is suspected, a test for HCV RNA (test code 47785) is suggested. For additional information please refer to http://education.[employer]/faq/IJW00s0 (This link is being provided for informational/ educational purposes only.) 01/14/2021 3:46 PM EDT Dianna Pierce MD HISTORICAL/NON ORDERABLE LABS Final Result Performing Organization Address City/[facility]/ZIP Co de Phone Number [facility] [address] * HIV 1/2 ANTIGEN/ANTIBODY,FOURTH GENERATION W/RFL (01/14/2021 3:46 PM EDT) HIV-1/2 ANTIGEN AND ANTIBODIES, 4TH GENERATION W/ REFLEX NON-REACT CORY NON-REACT CORY [facility] Comment: HIV-1 antigen and HIV-1/HIV-2 antibodies were not detected. There is no laboratory evidence of HIV infection. PLEASE NOTE: This information has been disclosed to you from records whose confidentiality may be protected by state law. If your state requires such protection, then the state law prohibits you from making any further disclosure of the information without the specific written consent of the person to whom it pertains, or as otherwise permitted by law. A general authorization for the release of medical or other information is NOT sufficient for this purpose. For additional information please refer to http://education.[employer]/faq/ASH283 (This link is being provided for informational/ educational purposes only.) The performance of this assay has not been clinically validated in patients less than 2 years old. 01/14/2021 3:46 PM EDT us Dianna Pierce MD LAB BLOOD ORDERABLES Final Re sult [facility] [address] * (ABNORMAL) LIPID PANEL, STANDARD (01/14/2021 3:46 PM EDT) Chol/HDLC Ratio 6.1(H) <5.0 (calc) [facility] Cholesterol, Total 158 <200 mg/dL [facility] HDL Cholesterol 26(L) > OR = 40 mg/dL [facility] LDL Cholesterol SEE COMMENT mg/dL (calc) [facility] Comment: LDL cholesterol not calculated. Triglyceride levels greater than 400 mg/dL invalidate calculated LDL results. Reference range: <100 Desirable range <100 mg/dL for primary prevention; <70 mg/dL for patients with CHD or diabetic patients with > or = 2 CHD risk factors. LDL-C is now calculated using the Krishna-Galileo calculation, which is a validated novel method providing better accuracy than the Friedewald equation in the estimation of LDL-C. Krishna ALEJO et al. TONE. 2013;310(19): 2071-6545 (http://education.[employer]/faq/GZV122) Non-HDL Cholesterol 132(H) <130 mg/dL (calc) [facility] Comment: For patients with diabetes plus 1 major ASCVD risk factor, treating to a non-HDL-C goal of <100 mg/dL (LDL-C of <70 mg/dL) is considered a therapeutic option. Triglycerides 415(H) <150 mg/dL [facility] Comment: If a non-fasting specimen was collected, consider repeat triglyceride testing on a fasting specimen if clinically indicated. Eli et al. J. of Clin. Lipidol. 2015;9:129-169. 01/14/2021 3:46 PM EDT us Dianna Pierce MD LAB BLOOD ORDERABLES Final Re sult [facility] [address] from Last 3 Months or Most Recently Relevant to Health Maintenance Insurance [facility] Care Teams Airplane Cabin Attendant Relationship Specialty Start Date End Date Radha Bravo MD [address] [place] [address] PCP - General Family Medicine 03/08/21
[2025-01-28 09:03] LABS: IDNOW Serial# 55D5AD1C; Strep A Nucleic Acid Negative (Negative)
--- OUTSIDE RECORDS SUMMARY | 2025-01-28 09:03 | XMS_ITS | Clinical Summary ---
Author Organization [facility] Address [address] [place] [phone] Phone Care Team Providers Care Medical And Scientific Illustrator Name Role Phone Cinthya Briones MD Primary Care Provider [phone] Social History Tobacco Use Types Packs/Day Years Used Date Smoking Tobacco: Never Assessed Sex and Gender Information Value Date Recorded Sex Assigned at Not on file Legal Sex Male 12:09 PM EST Gender Identity Not on file Sexual Orientation Not on file Plan of Treatment Health Maintenance Due Date Last Done Comments DTaP,Tdap,and Td Vaccines (1 - Tdap) 2015 Hepatitis B Vaccines (1 of 3 - 19+ 3-dose series) 2015 COVID-19 Vaccine ( - 2023-2 5 season) 2024 HIV Screening 05/22/2024 Hepatitis C Screening 05/22/2024 Social Influencers of Health Screening 05/22/2024 Depression Screening 07/10/2024 Influenza Vaccine (#1) 2025 HIB Vaccines Aged Out No longer eligi ble based on patient's age to complete this topic HPV Vaccines Aged Out No longer eligi ble based on patient's age to complete this topic Hepatitis A Vaccines Aged Out No long er eligible based on patient's age to complete this topic IPV Vaccines Aged Out No longer eligi ble based on patient's age to complete this topic MMR Vaccines Aged Out No longer eligi ble based on patient's age to complete this topic Meningococcal ACWY Vaccine Aged Out N o longer eligible based on patient's age to complete this topic Meningococcal B Vaccine Aged Out No l onger eligible based on patient's age to complete this topic Pneumococcal Vaccine: Pediat rics (0 to 5 Years) and At-Risk Patients (6 to 49 Years) Aged Out No longer eligible b ased on patient's age to complete this topic RSV Immunization Patients Un grey 20 months Aged Out No longer eligible b ased on patient's age to complete this topic Varicella Vaccines Aged Out No longer eligible based on patient's age to complete this topic Insurance [facility] [place] [address] Care Teams Medical And Scientific Illustrator Relationship Specialty Start Date End Date Cinthya Briones MD [address] [place] [address] [place] [address] PCP - General Internal Medicine 05/22/24
--- OUTSIDE RECORDS SUMMARY | 2025-01-28 09:03 | XMS_ITS | Patient Health Record ---
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 Primary Care Provider Syed Chan [phone] Results Component Value Reference Range Notes Prothrombin Time INR Reviewed date:12/16/2024 09:37:21 PM Interpretation: Performing Lab:[facility], [address] [place] [phone] Notes/Report: Prothrombin Time 15.7 10.9-12.4 SEC INTERNATIONAL NORM RATIO 1.4 0.9-1.1 INTERNATIONAL NORMALIZED RATIO (INR) REFERENCE RANGES Reference Range For patients not on anticoagulant therapy: 0.9 - 1.1 INR ranges for oral anticoagulant therapy: For prevention and treatment of venous thrombosis and pulmonary embolism: 2.0 - 3.0 For acute myocardial infarction with aspirin therapy: 2.0 - 3.0 For acute myocardial infarction without aspirin therapy: 3.0 - 4.0 For patients with mechanical prosthetic heart valves: 2.5 - 3.5 Liver Panel Reviewed date:12/16/2024 09:37:32 PM Interpretation: Performing Lab:[facility], [address] [place] [phone] Notes/Report: Bilirubin Total 1.2 0.0-1.0 mg/dL Bilirubin Direct 0.7 0.0-0.5 mg/dL Aspartate Amino Transferase 44 5-37 U/L Alanine Aminotransferase 14 0-40 U/L Total Protein 6.1 6.5-8.0 g/dL Albumin Level 2.7 3.5-5.0 g/dL Alkaline Phosphatase 128 39-117 U/L Basic Metabolic Panel Reviewed date:12/16/2024 09:35:32 PM Interpretation: Performing Lab:[address] [address] Notes/Report: Sodium 135 135-145 mmol/L Potassium 4.0 3.3-5.1 mmol/L Chloride 98 96-108 mmol/L Carbon Dioxide 28 22-29 mmol/L Anion Gap 13 12-20 Blood Urea Nitrogen 8 9-16 mg/dL Creatinine 0.82 0.5-1.4 mg/dL Creatinine Clr Calc Pharmacy 209.0 eGFR (calculated from the MDRD study equation) and eCrCl (calculated from the Cockcroft-Gault equation) are based on different parameters and may not yield comparable results. If eCrCl result is absurd, please check patient's height/weight. Estimated Glomerular Filt Rate > 60 Chronic Kidney Disease: Estimated GFR < 60 mL/min/1.73m2 Severe Kidney Disease: Estimated GFR < 15 mL/min/1.73m2 Glucose Random 158 60-115 mg/dL Calcium 8.1 8.4-10.2 mg/dL Magnesium Reviewed date:12/16/2024 09:37:05 PM Interpretation: Performing Lab:[address] [address] Notes/Report: Magnesium 1.9 1.6-2.6 mg/dL Lipase Reviewed date:12/16/2024 09:35:17 PM Interpretation: Performing Lab:[facility], [address] [place] [phone] Notes/Report: Lipase 196 8-78 U/L US abdomen limited Reviewed date:12/16/2024 09:35:09 PM Interpretation: Performing Lab: Notes/Report: [address] [address] Ultrasound Report Signed Patient: Chato Dickinson MR#: [id number] : 1995 Acct:[id number] Age/Sex: 29 / M ADM Date: 12/08/24 Loc: HO.S3 362-[address]: Ananth Rasmussen MD Ordering Physician: Syed Eisenberg MD Date of Service: 12/14/24 Procedure(s): US abdomen limited Accession Number(s): [id number] cc: Physician,Unknown ; Syed Eisenberg MD EXAMINATION: US ABDOMEN LIMITED CLINICAL INFORMATION: Severe edematous interstitial pancreatitis. Rule out gallstones. COMPARISON: CT abdomen and pelvis 12/12/2024. TECHNIQUE: Real-time imaging of the right upper quadrant abdominal viscera. FINDINGS: LIVER: Incompletely evaluated. There is diffusely increased parenchymal echogenicity suggesting steatosis. GALLBLADDER: There is sludge layering within the lumen of the gallbladder. There are no discrete calculi identified. No significant gallbladder wall thickening, with the gallbladder wall measuring 3 mm. No significant pericholecystic fluid. The patient is tender across the entire abdomen, limiting evaluation for sonographic Rogers sign. COMMON BILE DUCT: Normal in caliber measuring 0.5 cm in diameter. FREE FLUID: Moderate free fluid seen in the right upper quadrant, US/US abdomen limited IMPRESSION: 1. No definite gallstones present. There is some layering sludge within the gallbladder with no clear evidence of acute cholecystitis. 2. No definite biliary dilatation present. 3. Partially imaged liver demonstrates diffuse fatty infiltration. Electronically signed by: Nino Burnette MD 12/16/2024 09:05 AM EDT Dictated By: Nino Burnette MD Signed By: <Electronically signed by Nino Burnette MD in OV> 12/16/24 0905 DD/ 0756 TD/TT: 12/14/24 0801 Cabin Cleaning Supervisor: Complete Blood Count Auto Di ff Reviewed date:12/24/2024 09:36:31 AM Interpretation: Performing Lab:[facility], [address] [place] [phone] Notes/Report: White Blood Count 9.6 4.8-10.8 X10*3/uL Red Blood Count 3.75 4.60-5.80 X10*6/uL Hemoglobin 9.4 14.0-18.0 g/dl Hematocrit 29.9 42.0-52.0 % Mean Corpuscular Volume 79.7 80.0-98.0 fL Mean Corpuscular Hemoglobin 25.1 27.0-33.0 pg Mean Corpuscular HGB Conc 31.4 31.0-36.0 g/dl Red Cell Distribution Width 14.6 11.0-16.0 % Platelet Count 592 160-400 X10*3/uL Mean Platelet Volume 9.1 9.4-12.4 fL Neutrophils Percent Auto 69.2 45-73 % Imm Gran Pct Auto 2.3 0.0-0.4 % Lymphocytes Percent Auto 12.3 20-40 % Monocytes Percent Auto 12.3 2-11 % Eosinophils Percent Auto 3.3 0-4 % Basophils Percent Auto 0.6 0-2 % NRBC Pct Auto 0.0 0.0-0.2 /100WBC Neutrophils Absolute Auto 6.6 2.0-8.3 x10*3/u L Imm Gran Abs Auto 0.22 0.00-0.03 X10*3/uL Lymphocytes Absolute Auto 1.2 1.2-4.9 X10*3/u L Monocytes Absolute Auto 1.2 0.1-1.2 X10*3/uL Eosinophils Absolute Auto 0.3 0.0-0.4 X10*3/u L Basophils Absolute Auto 0.1 0.0-0.2 X10*3/uL NRBC Abs Auto 0.000 0.0-0.012 X10*3/uL Prothrombin Time INR Reviewed date:12/24/2024 09:36:13 AM Interpretation: Performing Lab:[address] [address] Notes/Report: Prothrombin Time 17.0 10.9-12.4 SEC INTERNATIONAL NORM RATIO 1.5 0.9-1.1 INTERNATIONAL NORMALIZED RATIO (INR) REFERENCE RANGES Reference Range For patients not on anticoagulant therapy: 0.9 - 1.1 INR ranges for oral anticoagulant therapy: For prevention and treatment of venous thrombosis and pulmonary embolism: 2.0 - 3.0 For acute myocardial infarction with aspirin therapy: 2.0 - 3.0 For acute myocardial infarction without aspirin therapy: 3.0 - 4.0 For patients with mechanical prosthetic heart valves: 2.5 - 3.5 Liver Panel Reviewed date:12/24/2024 09:36:04 AM Interpretation: Performing Lab:[address] [address] Notes/Report: Bilirubin Total 0.9 0.0-1.0 mg/dL Bilirubin Direct 0.4 0.0-0.5 mg/dL Aspartate Amino Transferase 133 5-37 U/L Alanine Aminotransferase 53 0-40 U/L Total Protein 7.7 6.5-8.0 g/dL Albumin Level 3.0 3.5-5.0 g/dL Alkaline Phosphatase 154 39-117 U/L Basic Metabolic Panel Reviewed date:12/24/2024 09:35:49 AM Interpretation: Performing Lab:[address] [address] Notes/Report: Sodium 136 135-145 mmol/L Potassium 4.3 3.3-5.1 mmol/L Chloride 103 96-108 mmol/L Carbon Dioxide 24 22-29 mmol/L Anion Gap 13 12-20 Blood Urea Nitrogen 13 9-16 mg/dL Creatinine 0.76 0.5-1.4 mg/dL Creatinine Clr Calc Pharmacy 214.7 eGFR (calculated from the MDRD study equation) and eCrCl (calculated from the Cockcroft-Gault equation) are based on different parameters and may not yield comparable results. If eCrCl result is absurd, please check patient's height/weight. Estimated Glomerular Filt Rate > 60 Chronic Kidney Disease: Estimated GFR < 60 mL/min/1.73m2 Severe Kidney Disease: Estimated GFR < 15 mL/min/1.73m2 Glucose Random 114 60-115 mg/dL Calcium 8.9 8.4-10.2 mg/dL Phosphorus Reviewed date:12/24/2024 09:35:26 AM Interpretation: Performing Lab:[facility], [address] [place] [phone] Notes/Report: Phosphorus 5.4 2.7-4.5 mg/dL Magnesium Reviewed date:12/24/2024 09:35:02 AM Interpretation: Performing Lab:[facility], [address] [place] [phone] Notes/Report: Magnesium 1.7 1.6-2.6 mg/dL Lipase Reviewed date:12/24/2024 09:34:54 AM Interpretation: Performing Lab:[facility], [address] [place] [phone] Notes/Report: Lipase 237 8-78 U/L CT abdomen pelvis w con Reviewed date:12/26/2024 12:57:44 AM Interpretation: Performing Lab: Notes/Report: [address] [place] [address] CT Scan Report Signed Patient: Chato Dickinson MR#: [id number] : 1995 Acct:[id number] Age/Sex: 29 / M ADM Date: 12/08/24 Loc: HO.S3 362-[address]: Perla Childs NP Ordering Physician: Syed Eisenberg MD Date of Service: 12/23/24 Procedure(s): CT abdomen pelvis w IV con Accession Number(s): [id number] cc: Physician,Unknown ; Syed Eisenberg MD Report Number: [id number]: Total DLP = 1706.00 mGy-cm CLINICAL HISTORY: Pancreatitis, abdominal pain, R O necrosis abscess CT abdomen and pelvis with contrast Comparison: CT/SR - CT ABDOMEN PELVIS W IV CON - 12/14/24 11:44 EDT Findings: Small left pleural effusion with associated left basilar atelectasis similar to prior. Surrounding the pancreatic tail and extending inferiorly in the perirenal fat, and along the paracolic gutter into the pelvis there is peripherally enhancing multilobulated fluid which has slightly decreased since the prior exam. No pancreatic parenchymal devascularization, intraparenchymal lesion, or pancreatic duct dilatation. Distended gallbladder similar to prior. No inflammatory change. No bile duct dilatation. Abdominal solid organs otherwise unremarkable. No urolithiasis. No pneumoperitoneum or pneumatosis. Moderate stool in the right colon. No abdominal wall hernia. Normal appendix. Moderate distention of the urinary bladder. The bones are intact. IMPRESSION: 1. Extensive pancreatic pseudocyst disease has slightly improved since the prior exam. There is mild peripheral enhancement of the pseudocysts fluid. This could be due to localized inflammation, or infection. Correlate with clinical signs and symptoms. 2. No pancreatic necrosis. 3. Additional findings as above. This document has been electronically signed by: Gregg Mccoy MD on 12/24/2024 00:13:16 Dictated By: Gregg Mccoy MD Signed By: <Electronically signed by Gregg Mccoy MD in OV> 12/24/2413 DD/ TD/TT: 12/24/2412 Cabin Cleaning Supervisor: Luis Miguel Gene PCR Reviewed date:12/24/2024 06:33:34 PM Interpretation: Performing Lab:[facility], [address] [place] [phone] Notes/Report: CDiff Gene PCR NEGATIVE Negative If C. difficile strongly suspected despite one negative test, a second test may be sent vs. empiric treatment for C. difficile infection. Hold Lav - Possible Hematolo gy Reviewed date:12/26/2024 11:21:10 PM Interpretation: Performing Lab:[facility], [address] [place] [phone] Notes/Report: Hold Lav - Possible Hematology SEE NOTE Specimen will be held untested for 8 hours. Call Hematology if testing is desired. Prothrombin Time INR Reviewed date:12/26/2024 01:36:40 PM Interpretation: Performing Lab:[facility], [address] [place] [address] Notes/Report: Prothrombin Time 17.2 10.9-12.4 SEC INTERNATIONAL NORM RATIO 1.5 0.9-1.1 INTERNATIONAL NORMALIZED RATIO (INR) REFERENCE RANGES Reference Range For patients not on anticoagulant therapy: 0.9 - 1.1 INR ranges for oral anticoagulant therapy: For prevention and treatment of venous thrombosis and pulmonary embolism: 2.0 - 3.0 For acute myocardial infarction with aspirin therapy: 2.0 - 3.0 For acute myocardial infarction without aspirin therapy: 3.0 - 4.0 For patients with mechanical prosthetic heart valves: 2.5 - 3.5 Liver Panel Reviewed date:12/26/2024 01:37:31 PM Interpretation: Performing Lab:[facility], [address] [place] [phone] Notes/Report: Bilirubin Total 0.7 0.0-1.0 mg/dL Bilirubin Direct 0.4 0.0-0.5 mg/dL Aspartate Amino Transferase 107 5-37 U/L Alanine Aminotransferase 55 0-40 U/L Total Protein 8.0 6.5-8.0 g/dL Albumin Level 3.1 3.5-5.0 g/dL Alkaline Phosphatase 146 39-117 U/L Basic Metabolic Panel Reviewed date:12/26/2024 11:20:53 PM Interpretation: Performing Lab:[facility], [address] [place] [address] Notes/Report: Sodium 136 135-145 mmol/L Potassium 4.3 3.3-5.1 mmol/L Chloride 101 96-108 mmol/L Carbon Dioxide 24 22-29 mmol/L Anion Gap 15 12-20 Blood Urea Nitrogen 15 9-16 mg/dL Creatinine 0.74 0.5-1.4 mg/dL Creatinine Clr Calc Pharmacy 217.5 eGFR (calculated from the MDRD study equation) and eCrCl (calculated from the Cockcroft-Gault equation) are based on different parameters and may not yield comparable results. If eCrCl result is absurd, please check patient's height/weight. Estimated Glomerular Filt Rate > 60 Chronic Kidney Disease: Estimated GFR < 60 mL/min/1.73m2 Severe Kidney Disease: Estimated GFR < 15 mL/min/1.73m2 Glucose Random 148 60-115 mg/dL Calcium 9.4 8.4-10.2 mg/dL Phosphorus Reviewed date:12/26/2024 11:20:22 PM Interpretation: Performing Lab:[address] [address] Notes/Report: Phosphorus 5.1 2.7-4.5 mg/dL Magnesium Reviewed date:12/26/2024 11:20:13 PM Interpretation: Performing Lab:[facility], [address] [place] [phone] Notes/Report: Magnesium 1.8 1.6-2.6 mg/dL CT abdomen pelvis w con Reviewed date:12/29/2024 02:36:22 PM Interpretation: Performing Lab: Notes/Report: [address] [address] [address] Scan Report Signed Patient: Chato Dickinson MR#: [id number] : 1995 Acct:[id number] Age/Sex: 29 / M ADM Date: 12/08/24 Loc: HO.S3 362-[address]: Perla Childs NP Ordering Physician: Syed Eisenberg MD Date of Service: 12/28/24 Procedure(s): CT abdomen pelvis w IV con Accession Number(s): [id number] cc: Physician,Unknown ; Syed Eisenberg MD Report Number: [id number]: Total DLP = 1283.00 mGy-cm CLINICAL HISTORY: Pancreatitis,R O Necrosis Pyloric obstruction CT abdomen and pelvis with contrast Comparison: None provided Findings: There is mild atelectasis at the left lung base. Left pleural effusion has resolved. Once again there is extensive pancreatic pseudocyst formation unchanged from the prior examination. There is no definite evidence of pancreatic necrosis. There is no pancreatic ductal dilatation. The rest of the solid organs are normal. The gallbladder is normal. No bowel obstruction, pneumoperitoneum, or pneumatosis. Pelvic contents unremarkable. Normal appendix. Small amount of ascites previously noted has resolved. No acute fracture. IMPRESSION: 1. Extensive pancreatic complex pseudocyst relatively unchanged. 2. No evidence of pancreatic necrosis. 3. Interval resolution of left pleural effusion and ascites. This document has been electronically signed by: Bruno Rutherford MD on 12/29/2024 10:16:46 Dictated By: Bruno Rutherford MD Signed By: <Electronically signed by Bruno Rutherford MD in OV> 12/29/24 1017 DD/ 1016 TD/TT: 12/29/24 1016 Cabin Cleaning Supervisor: Reason For Referral Reason abdominal pain Referring Provider First Name Radha Referring Provider Last Name Hampton Referred Organization [facility] Referred Provider Syed Eisenberg Referred Address [address] [place] [address] [address], [place],[address], Referred Provider Specialty Gastroentero logy Referral Priority Routine Problems Problem Type SNOMED Code ICD Code Onset Dates Problem Status W/U Status Risk Notes Problem Pancreatitis (01652829) Pancreatitis (K85.90) Active confirmed Problem Pancreatic pseudocyst (602757693) Pancreatic pseudocyst (K86.3) Active confirmed Encounters Encounter Location Date Provider Diagnosis [facility] [address] [place] [address] 01/09/2025 Syed Eisenberg Pancreatitis K85.90 and Pancreatic pseudocyst K86.3 Assessments Encounter Date Diagnosis (ICD Code) Assessment Notes Treatment Notes Treatment Clinical Notes Section Notes 01/09/2025 Pancreatitis (ICD-10 - K85.90) 01/09/2025 Pancreatic pseudocyst (ICD-10 - K86.3) Plan Of Treatment Pending Test Test Name Order Date BUN 01/09/2025 LIVER PROFILE 01/09/2025 CBC w DIFF 01/09/2025 CT ABD & PELVIS WITH CONTRAST 01/09/2025 Prothrombin Time INR 01/09/2025 Creatinine 01/09/2025 Amylase 01/09/2025 Lipase 01/09/2025 Insurance Providers Payer Name Payer Address Payer Phone Subscriber Number Group Number Insured Name Patient Relationship to Insured Coverage Start Date Coverage End Date [place] [address] [place] [phone] [id number] CHATO DICKINSON Self - patient is the insured
[2025-01-28 09:39] LABS: Resp Syncy Virus RNA Qual PCR NEGATIVE (Negative); SARS COV2 PCR INHOUSE POSITIVE (Negative)
[2025-01-28 09:59] VITALS: BP 127/81; PULSE 68; RESP 16; TEMP 36.7; O2SAT 98
== END 2025-01-28 10:01 | disposition home or self-care (01) ==
PROVIDERS: Registered Nurse Emergency; Emergency Provider Emergency Medicine
DX: U07.1 COVID-19 (principal); J02.9 Acute pharyngitis, unspecified
CPT/HCPCS: 87637; 87651; 99283; 99284

== ENCOUNTER 2025-02-16 00:35 | Emergency (ER) | payer MEDICAID, SELFPAY ==
--- NOTE | ~2025-02-16 | CT_ITS ---
CLINICAL HISTORY: epigastric pain hx pancreatitis CT abdomen and pelvis with contrast Comparison: CT/SR - CT ABDOMEN PELVIS W IV CON - 12/28/24 11:17 EDT Findings: No consolidation or effusion. Pancreatic distal body and tail surrounded by complex fluid with a capsule extending laterally, but substantially decreased from 12/28/2024. Pancreatic enhancement is maintained. Unremarkable gallbladder and other solid organs. No urolithiasis. No bowel obstruction, pneumoperitoneum, or pneumatosis. Pelvic contents unremarkable. Normal appendix. The bones are intact. IMPRESSION: Acute interstitial edematous pancreatitis with significant decrease in size of pseudocysts This document has been electronically signed by: Christiano Kelly MD on 02/16/2025 03:54:04
[2025-02-16 00:57] VITALS: BP 135/62; PULSE 76; RESP 20; TEMP 36.5; O2SAT 98; BMI 37.2
[2025-02-16 01:30] LABS: MANUAL DIFF FLAG NO
[2025-02-16 01:33] LABS: Hematocrit 36.6 % (42.0-52.0); Hemoglobin 12.4 g/dl (14.0-18.0); Imm Gran Abs Auto 0.02 X10*3/uL (0.00-0.03); Imm Gran Pct Auto 0.4 % (0.0-0.4); Lymphocytes Absolute Auto 1.9 X10*3/uL (1.2-4.9); Mean Corpuscular HGB Conc 33.9 g/dl (31.0-36.0); Mean Corpuscular Hemoglobin 25.5 pg (27.0-33.0); Mean Corpuscular Volume 75.3 fL (80.0-98.0); NRBC Abs Auto 0.000 X10*3/uL (0.0-0.012); NRBC Pct Auto 0.0 /100WBC (0.0-0.2); Platelet Count 334 X10*3/uL (160-400); Red Blood Count 4.86 X10*6/uL (4.60-5.80); White Blood Count 5.3 X10*3/uL (4.8-10.8)
[2025-02-16 01:47] LABS: Alanine Aminotransferase 24 U/L (0-40); Albumin Level 4.0 g/dL (3.5-5.0); Alkaline Phosphatase 89 U/L (39-117); Anion Gap 16 (12-20); Aspartate Amino Transferase 22 U/L (5-37); Blood Urea Nitrogen 16 mg/dL (9-16); Calcium 9.0 mg/dL (8.4-10.2); Carbon Dioxide 23 mmol/L (22-29); Chloride 106 mmol/L (96-108); Creatinine Clr Calc Pharmacy 181.0; Estimated Glomerular Filt Rate > 60; Lipase 46 U/L (8-78); Potassium 3.8 mmol/L (3.3-5.1); Sodium 141 mmol/L (135-145); Total Protein 7.4 g/dL (6.5-8.0)
[2025-02-16] MEDS: Lidocaine HCl Viscous 2 % 15 ML SOLUTION MUCOUS MEM (02:33)
[2025-02-16] MEDS: Magnesium Hydrox/Alum Hydrox 30 ML ORAL.SUSP PO (02:33)
--- NOTE | 2025-02-16 02:48 | ED.ABDPAIN ---
HPI - Abdominal Pain General Chief Complaint: Abdominal Pain Stated Complaint: stomach/abd pain Time Seen by Provider: 02/16/25 01:46 Source: patient Mode of arrival: ambulatory Limitations: no limitations History of Present Illness ED Provider: Dr. Rachel Nicole HPI narrative: Patient comes to the emergency room complaining of epigastric pain. Patient states that in December he was diagnosed with pancreatitis secondary to triglyceridemia. Patient states that since that episode, he really never fully recovered. Every time that he eats or drinks something his abdomen hurts. However, the pain was much worse today. Patient denies nausea vomiting or diarrhea. Patient denies chest pain Related Data Home Medications ?Medication ?Instructions ?Recorded ?Confirmed metformin 750 mg tablet,extended 750 mg PO BID 12/08/24 12/08/24 release 24 hr Previous Rx's ?Medication ?Instructions ?Recorded atorvastatin 80 mg tablet 80 mg PO BEDTIME #30 tabs 12/29/24 gemfibrozil 600 mg tablet 600 mg PO DAILY #30 tabs 12/29/24 hydromorphone 2 mg tablet 2 mg PO TIDAC PRN Pain, Severe 12/29/24 (Pain Scale 7-10) #30 tabs omeprazole 20 mg capsule,delayed 20 mg PO DAILY@0630 #30 caps 12/29/24 release cefuroxime axetil 500 mg tablet 500 mg PO Q12H #20 tabs 01/10/25 omeprazole 20 mg capsule,delayed 20 mg PO DAILY #60 caps 02/16/25 release ondansetron HCl 4 mg tablet 4 mg PO Q6H PRN nausea and 02/16/25 vomiting #10 tabs tramadol 50 mg tablet 50 mg PO Q8H PRN pain #10 tabs 02/16/25 Allergies Allergy/AdvReac Type Severity Reaction Status Date / Time shellfish derived (SHELLFISH Allergy Intermediate RASH Verified 02/16/25 00:58 DERIVED) Review of Systems Review of Systems Constitutional : No Weight loss, No Fever, No Chills, No Night Sweats, No Fatigue, No Malaise ENT/Mouth : No Hearing loss, No Ear Pain, No Nasal Congestion, No Sinus Pain, No Hoarseness, No sore throat, No Rhinorrhea, No Swallowing Difficulty Eyes: No Eye Pain, No Swelling, No Redness, No Foreign Body, No Discharge, No Vision Changes Cardiovascular : No Chest Pain, No SOB, No Dyspnea on Exertion, No Orthopnea, No Edema, No Palpitations Respiratory : No Cough, No Sputum, No Wheezing, No Smoke Exposure, No Dyspnea Gastrointestinal : No Nausea, No Vomiting, No Diarrhea, complaining of epigastric pain, worse with eating or drinking anything. Genitourinary : no irregular bleeding, No Dysuria, No Urinary Frequency, No Hematuria, No Urinary Incontinence, No Urgency, No Flank Pain, No Urinary Flow Changes, No Hesitancy Musculoskeletal : No joint pain, No Myalgias, No Joint Swelling Skin : No Skin Lesions, No rash Neuro : No Weakness, No Numbness, No Paresthesias, No Loss of Consciousness, No Dizziness, No Headache Psych : No Anxiety/Panic, No Depression, No SI/HI/AH/VH, No Social Issues, Heme/Lymph: No Bruising, No Bleeding,No Lymphadenopathy Endocrine : No Polyuria, No Polydipsia, No Temperature Intolerance [facility] Past Medical History Medical History Skull lesion Hypertriglyceridemia Acute pancreatitis Diabetes mellitus Asthma No known health problems Family History Family History Maternal Grandmother Diabetes Social History Social History Household Members: Significant Other Housing: Apartment Do you presently have visiting nurse or other home services: No Alcohol intake: never Comment: Spouse at bedside Patient Tobacco Use Status: Never used Tobacco Smoked in Last 30 Days: No Use of substances other than those prescribed or required for medical reasons: No Advance Directives: No Advance Directives Information Provided: Yes service: No Current occupational status: employed Physical Exam ED Exam Exam: Appearance: Alert. Oriented X3. No acute distress. Eyes: Pupils equal, round and reactive to light. ENT: Pharynx normal. Neck: Normal inspection. Neck supple. No lymph nodes noted. No crepitus CVS: Normal heart rate and rhythm. Pulses normal. Normal S1 and S2 Respiratory: No respiratory distress. Breath sounds normal. No Wheezing. No rales Abdomen: Soft , pain to palpation in epigastric area, no rebound or guarding. No rigidity. No distention. Skin: Skin warm and dry. Normal skin color. Normal skin turgor. Extremities: No lower extremity edema. No Lacerations. No Rash Neuro: Oriented X 3. No motor deficit. No sensory deficit. Moving all extremities. No slurred speech. CN 2 through 12 grossly intact Psych: calm, cooperative, normal affect Vital Signs: Vital Signs - 24 hr 02/16/25 00:57 02/16/25 03:22 Temperature 97.7 F Pulse Rate 76 56 Respiratory Rate 20 16 Blood Pressure 135/62 118/57 L Pulse Oximetry 98 97 Oxygen Delivery Method Room Air Room Air BMI result Body Mass Index 37.2 Course Course Course Narrative: Patient complaining of epigastric pain after eating. Nonradiating. Pain starts after eating or drinking anything. Ongoing for several months, but worse within the last few days. Patient has history of pancreatitis secondary to hypertriglyceridemia Patient receiving viscous lidocaine p.o., Maalox, IV Pepcid Given patient's past medical history, we will obtain labs and CT scan Medical Decision Making Medical Decision Making [facility] Narrative: My interpretation of EKG: Sinus bradycardia, heart rate 53, no ST segment depression or elevation, nonspecific T-wave inversion in lead 3, QTC 384 My interpretation of labs: No significant abnormality in patient's hematology or chemistry, normal lipase, normal LFTs, triglyceride days in the 400s CT scan of the abdomen shows acute interstitial edematous pancreatitis with significant decrease in size of pseudocyst compared to previous CAT scan when the patient was admitted. Patient states that with the GI cocktail, his symptoms resolved, he does not have any abdominal pain at this time. I discussed the above-mentioned with Dr. Flores from the Medicine team, who agrees to admit the patient. However, the patient states that he would try to go home and if he can not tolerate the pain, he will return In the emergency room, patient was only given a GI cocktail, no other pain medications. Patient also likely has peptic ulcer disease/gastritis. Patient aware. Differential Diagnosis Differential Diagnoses: The differential diagnosis associated with the presentation includes (Pancreatitis, gastritis, peptic ulcer, cholecystitis) Admission/Observation Consideration of admission/observation: Escalation of care including admission/observation considered (Given patient's past medical history and presentation, admission was offered but patient declined) Consult Healthcare Provider Management of the patient was discussed with: Hospitalist Lab Data [facility] Lab Attestation statement: I reviewed the patient's lab results. 02/16/25 01:26 02/16/25 01:26 Labs: Lab Results 02/16/25 Range/Units 01:26 WBC 5.3 (4.8-10.8) X10*3/uL RBC 4.86 (4.60-5.80) X10*6/uL Hgb 12.4 L (14.0-18.0) g/dl Hct 36.6 L (42.0-52.0) % MCV 75.3 L (80.0-98.0) fL MCH 25.5 L (27.0-33.0) pg MCHC 33.9 (31.0-36.0) g/dl RDW 15.9 (11.0-16.0) % Plt Count 334 (160-400) X10*3/uL MPV 9.3 L (9.4-12.4) fL Immature Gran % (Auto) 0.4 (0.0-0.4) % Neut % (Auto) 46.0 (45-73) % Lymph % (Auto) 35.8 (20-40) % [place] % (Auto) 12.7 H (2-11) % Eos % (Auto) 4.0 (0-4) % Baso % (Auto) 1.1 (0-2) % Lymph # (Auto) 1.9 (1.2-4.9) X10*3/uL [place] # (Auto) 0.7 (0.1-1.2) X10*3/uL Eos # (Auto) 0.2 (0.0-0.4) X10*3/uL Baso # (Auto) 0.1 (0.0-0.2) X10*3/uL Abs Immat Gran (auto) 0.02 (0.00-0.03) X10*3/uL Absolute Neuts (auto) 2.4 (2.0-8.3) x10*3/uL Absolute Nucleated RBC 0.000 (0.0-0.012) X10*3/uL Nucleated RBC % (auto) 0.0 (0.0-0.2) /100WBC Sodium 141 (135-145) mmol/L Potassium 3.8 (3.3-5.1) mmol/L Chloride 106 (96-108) mmol/L Carbon Dioxide 23 (22-29) mmol/L Anion Gap 16 (12-20) BUN 16 (9-16) mg/dL Creatinine 0.90 (0.5-1.4) mg/dL Estim Creat Clear Calc 181.0 Estimated GFR > 60 Random Glucose 144 H (60-115) mg/dL Calcium 9.0 (8.4-10.2) mg/dL Total Bilirubin 0.6 (0.0-1.0) mg/dL AST 22 (5-37) U/L ALT 24 (0-40) U/L Alkaline Phosphatase 89 (39-117) U/L Total Protein 7.4 (6.5-8.0) g/dL Albumin 4.0 (3.5-5.0) g/dL Triglycerides 470 H (<150) mg/dL Lipase 46 (8-78) U/L Independent Interpretation I performed an independent interpretation of an: EKG and CT Scan Radiology Impression Discussion of test interpretation with radiology: I have reviewed the radiologist's reading. Radiologist Impression: No consolidation or effusion. Pancreatic distal body and tail surrounded by complex fluid with a capsule extending laterally, but substantially decreased from 12/28/2024. Pancreatic enhancement is maintained. Unremarkable gallbladder and other solid organs. No urolithiasis. No bowel obstruction, pneumoperitoneum, or pneumatosis. Pelvic contents unremarkable. Normal appendix. The bones are intact. IMPRESSION: Acute interstitial edematous pancreatitis with significant decrease in size of pseudocysts Medications Administered Discontinued Medications Generic Name Dose Route Start Last Admin Trade Name Freq PRN Reason Stop Dose Admin Al Hydroxide/Mg Hydroxide 30 ml 02/16/25 02:03 02/16/25 02:33 Magnesium Hydrox/Alum Hydrox 30 Ml Oral.Susp PO 02/16/25 02:04 30 ml ONCE ONE Administration Famotidine 20 mg 02/16/25 02:03 02/16/25 02:42 Famotidine/Pf 20 Mg/2 Ml Vial IVPUSH 02/16/25 02:04 20 mg ONCE ONE Administration Iohexol 100 ml 02/16/25 02:57 02/16/25 02:58 Iohexol 350 Mg/Ml 100 Ml Infus..Btl IV 02/16/25 02:58 100 ml ONCE ONE Administration Lidocaine HCl 15 ml 02/16/25 02:03 02/16/25 02:33 Lidocaine Hcl Viscous 2 % 15 Ml Solution MUCOUS MEM 02/16/25 02:04 15 ml ONCE ONE Administration Critical Care Time Critical Care Time Critical Care Time: Yes Total Critical Care Time: 60 Attestation: I have personally provided critical care time. Time includes review of lab data, radiology results, discussion with consultants, and monitoring for potential decompensation. Intervention performed as documented. Discharge Plan Discharge Clinical Impression: Pancreatitis, Peptic ulcer Patient Disposition: Home, Self-Care Instructions: Pancreatitis (ED), Clear Liquid Diet (ED), Full Liquid Diet (DC) Additional Instructions: Please follow-up with your primary care physician tomorrow. If you have any worsening or new symptoms, please return to the emergency room or call 911 Prescriptions: New tramadol 50 mg tablet 50 mg PO Q8H PRN (Reason: pain) Qty: 10 0RF ondansetron HCl 4 mg tablet 4 mg PO Q6H PRN (Reason: nausea and vomiting) Qty: 10 0RF omeprazole 20 mg capsule,delayed release(DR/EC) 20 mg PO DAILY Qty: 60 0RF No Action metformin 750 mg tablet extended release 24 hr 750 mg PO BID atorvastatin 80 mg Tablet 80 mg PO BEDTIME Qty: 30 0RF gemfibrozil 600 mg Tablet 600 mg PO DAILY Qty: 30 0RF hydromorphone 2 mg Tablet 2 mg PO TIDAC PRN (Reason: Pain, Severe (Pain Scale 7-10)) Qty: 30 0RF Rx Instructions: Partial Fill upon patient request. omeprazole 20 mg Capsule,Delayed Release(Dr/Ec) 20 mg PO DAILY@0630 Qty: 30 0RF cefuroxime axetil 500 mg tablet 500 mg PO Q12H Qty: 20 0RF Print Language: Bulgarian
--- NOTE | 2025-02-16 02:50 | ECG_ITS ---
Test Reason : EPIGASTRIC PAIN Blood Pressure : */* mmHG Vent. Rate : 53 BPM Atrial Rate : 53 BPM P-R Int : 178 ms QRS Dur : 98 ms QT Int : 410 ms P-R-T Axes : 14 26 -1 degrees QTcB Int : 384 ms Sinus bradycardia Cannot rule out Anterior infarct , age undetermined Abnormal ECG When compared with ECG of 08-Dec-2024 15:16, Vent. rate has decreased by 36 bpm QT has shortened Referred By: Rachel Nicole Electronically Signed By: MALLORY BOYCE
[2025-02-16] MEDS: iohexoL 350 MG/ML 100 ML INFUS..BTL IV (02:58)
[2025-02-16 03:22] VITALS: BP 118/57; PULSE 56; RESP 16; O2SAT 97
[2025-02-16 04:36] LABS: Triglycerides 470 mg/dL (<150)
[2025-02-16 05:30] VITALS: BP 103/56; PULSE 56; RESP 14; TEMP 36.4; O2SAT 97
== END 2025-02-16 05:38 | disposition home or self-care (01) ==
PROVIDERS: Student in an Organized Health Care Education/Training Program; Emergency Provider Emergency Medicine
DX: K85.90 Acute pancreatitis without necrosis or infection, unspecified (principal); K27.9 Peptic ulcer, site unspecified, unspecified as acute or chronic, without hemorrhage or perforation; R10.13 Epigastric pain; R00.1 Bradycardia, unspecified; Z79.899 Other long term (current) drug therapy
CPT/HCPCS: 36415; 74177; 80053; 83690; 84478; 85025; 93005; 96374; 99284; J1308; Q9967

== ENCOUNTER → 2025-02-16 02:03 | Outpatient (BNV) | payer MEDICAID, SELFPAY | PROVIDERS: Emergency Provider Emergency Medicine; Visit Provider Student in an Organized Health Care Education/Training Program | DX: K85.90 Acute pancreatitis without necrosis or infection, unspecified (principal) | CPT/HCPCS: 74177 ==

== ENCOUNTER → 2025-02-16 02:50 | Outpatient (BNV) | payer MEDICAID, SELFPAY | PROVIDERS: Emergency Provider Emergency Medicine; Visit Provider Internal Medicine | DX: R00.1 Bradycardia, unspecified (principal) | CPT/HCPCS: 93010 ==

== ENCOUNTER 2025-02-20 23:30 | Inpatient (IN) | payer MEDICAID, SELFPAY ==
--- NOTE | ~2025-02-20 | XR_ITS ---
CLINICAL HISTORY: ng tube confirmation 1 view chest x-ray Comparison: 12/16/2024 Findings: No consolidation or effusion. Heart size is normal. Nasogastric tube tip is possibly in the gastric fundus. No acute fracture. IMPRESSION: 1. No acute findings. This document has been electronically signed by: Real Luis MD on 02/23/2025 21:01:24
--- NOTE | ~2025-02-20 | CT_ITS ---
CLINICAL HISTORY: Pancreatitis CT abdomen and pelvis with IV contrast. COMPARISON: CT abdomen and pelvis dated 02/16/25 at 02:39 EDT FINDINGS: Partially visualized lung bases are unremarkable. Liver is enlarged with right lobe measuring 22.1 cm. Normal spleen. Normal adrenal glands. Symmetric renal enhancement. No hydronephrosis. There are extensive inflammatory changes along the pancreatic body and tail with fluid collection along the tail, similar to prior imaging measuring in total approximately 5.9 x 7.6 x 3.3 cm (series 4, image 198). Fluid extends inferiorly along the left pericolic gutter. Pancreatic duct is not dilated. No choledocholithiasis. Stomach is distended with fluid with air-fluid level. Loops of small bowel within the midabdomen are dilated measuring up to 4.0 cm with air-fluid level. Focal transition point likely in the left lower quadrant. More distal small bowel is contracted. No free intraperitoneal air. Multiple normal-sized mesenteric lymph nodes primarily along the mesenteric root. Normal abdominal aorta. Urinary bladder is unremarkable given degree of distention. No inguinal lymphadenopathy. Small fat containing umbilical hernia. No acute fracture or suspicious bone lesion. IMPRESSION: 1. High-grade small-bowel obstruction. Small bowel is dilated measuring up to 4.0 cm with focal transition point likely in the left lower quadrant. 2. Pancreatitis with large pseudocysts along the pancreatic body and tail and fluid extending along the left pericolic gutter, not significantly changed from prior imaging. 3. Hepatomegaly. This document has been electronically signed by: Franklin Marcum MD on 02/23/2025 17:34:57
[2025-02-20 23:53] VITALS: BP 137/64; PULSE 60; RESP 18; TEMP 36.5; O2SAT 96; BMI 25.4
[2025-02-21] VITALS (8 sets, daily range): BP systolic 121–151; BP diastolic 60–84; PULSE 52–66; RESP 17–21; TEMP 35.8–36.8; O2SAT 95–100; BMI 25.3
[2025-02-21 00:43] LABS: MANUAL DIFF FLAG NO
[2025-02-21 00:45] LABS: Hematocrit 37.3 % (42.0-52.0); Hemoglobin 12.3 g/dl (14.0-18.0); Imm Gran Abs Auto 0.01 X10*3/uL (0.00-0.03); Imm Gran Pct Auto 0.2 % (0.0-0.4); Lymphocytes Absolute Auto 2.0 X10*3/uL (1.2-4.9); Mean Corpuscular HGB Conc 33.0 g/dl (31.0-36.0); Mean Corpuscular Hemoglobin 25.6 pg (27.0-33.0); Mean Corpuscular Volume 77.7 fL (80.0-98.0); NRBC Abs Auto 0.000 X10*3/uL (0.0-0.012); NRBC Pct Auto 0.0 /100WBC (0.0-0.2); Platelet Count 301 X10*3/uL (160-400); Red Blood Count 4.80 X10*6/uL (4.60-5.80); White Blood Count 5.1 X10*3/uL (4.8-10.8)
--- NOTE | 2025-02-21 00:46 | ED.ABDPAIN ---
HPI - Abdominal Pain General Chief Complaint: Abdominal Pain Stated Complaint: abd pain Time Seen by Provider: 02/21/25 00:33 Source: patient and family Mode of arrival: ambulatory Limitations: no limitations History of Present Illness ED Provider: DR. Griffin HPI narrative: 29-year-old male with PMH of diabetes, DKA, asthma, obesity, a pancreatitis secondary to triglyceridemia required ICU admission in the past. Patient presented to the ED on 02/16 with a similar presentation and was improved after was given viscous lidocaine/Maalox, and IV Pepcid, patient also had a CT abdomen pelvis on 02/16 which showed overall improvement of pseudocyst and the pancreatitis, also with significant improvement of triglyceridemia and lipase level. Patient declined hospitalization on 02/16. Patient is taking atorvastatin and omeprazole. Related Data Home Medications ?Medication ?Instructions ?Recorded ?Confirmed metformin 750 mg tablet,extended 750 mg PO BID 12/08/24 12/08/24 release 24 hr Previous Rx's ?Medication ?Instructions ?Recorded atorvastatin 80 mg tablet 80 mg PO BEDTIME #30 tabs 12/29/24 gemfibrozil 600 mg tablet 600 mg PO DAILY #30 tabs 12/29/24 hydromorphone 2 mg tablet 2 mg PO TIDAC PRN Pain, Severe 12/29/24 (Pain Scale 7-10) #30 tabs omeprazole 20 mg capsule,delayed 20 mg PO DAILY@0630 #30 caps 12/29/24 release cefuroxime axetil 500 mg tablet 500 mg PO Q12H #20 tabs 01/10/25 omeprazole 20 mg capsule,delayed 20 mg PO DAILY #60 caps 02/16/25 release ondansetron HCl 4 mg tablet 4 mg PO Q6H PRN nausea and 02/16/25 vomiting #10 tabs tramadol 50 mg tablet 50 mg PO Q8H PRN pain #10 tabs 02/16/25 Allergies Allergy/AdvReac Type Severity Reaction Status Date / Time shellfish derived (SHELLFISH Allergy Intermediate RASH Verified 02/20/25 23:58 DERIVED) Review of Systems Review of Systems All other systems are reviewed and are negative Constitutional: Reports as per HPI and Reports no additional constitutional complaints Eyes: Reports as per HPI and Reports no additional eye complaints Reports system reviewed and no additional complaints, except as documented Cardiovascular: Reports as per HPI and Reports no additional cardiovascular complaints Respiratory: Reports as per HPI and Reports no additional respiratory complaints Gastrointestinal: Reports as per HPI and Reports no additional gastrointestinal complaints Genitourinary: Reports no additional female genitourinary complaints Musculoskeletal: Reports no additional musculoskeletal complaints Skin/Breast: Reports system reviewed and no additional complaints, except as docu Psychiatric: Reports no additional psychiatric complaints Endocrine: Reports no additional endocrine complaints Hematologic/Lymphatic: Reports no additional hematologic/lymphatic complaints Allergic/Immunologic: Reports no additional allergic/immunologic complaints Reports system reviewed and no additional complaints, except as documented and Reports Abnormal speech present [facility] Past Medical History Medical History Skull lesion Hypertriglyceridemia Acute pancreatitis Diabetes mellitus Asthma No known health problems Family History Family History Maternal Grandmother Diabetes Social History Social History Household Members: Significant Other Housing: Apartment Do you presently have visiting nurse or other home services: No Alcohol intake: never Comment: Spouse at bedside Patient Tobacco Use Status: Never used Tobacco Smoked in Last 30 Days: No Use of substances other than those prescribed or required for medical reasons: No Advance Directives: No Advance Directives Information Provided: Yes service: No Current occupational status: employed Physical Exam ED Vital Signs: Vital Signs - 24 hr 02/20/25 23:53 02/21/25 00:43 02/21/25 01:27 Temperature 97.7 F 98.3 F Pulse Rate 60 59 59 Respiratory Rate 18 21 H 18 Blood Pressure 137/64 125/79 122/65 Pulse Oximetry 96 100 100 Oxygen Delivery Method Room Air Room Air Room Air BMI result Body Mass Index 25.4 Vital signs have been reviewed and appear to be correct. Blood pressure elevated. Heart rate normal. Respiratory rate normal. Temperature normal. Oxygen saturation normal. Appearance: Alert. Oriented X3. No acute distress. Head: Normal external exam. Normocephalic. Atraumatic. No Raygoza signs noted. No raccoon eyes noted Eyes: PERRLA. EOMI. Conjunctiva and sclera normal. Eyelids normal. ENT: TM's Normal. Pharynx normal. Uvula midline. Moist mucous membranes. No trismus noted. No drooling noted. No muffled voice noted. Neck: Normal inspection. Neck supple. FROM. No adenopathy. Thyroid Normal. No meningeal signs. No neck mass noted. CVS: Normal heart rate and rhythm. Heart sound normal. No murmurs noted. Pulses normal throughout. Respiratory: No respiratory distress. Painless inspiration. Breath sounds normal. No wheezes/rales/rhonchi noted. Chest nontender. No accessory muscle usage noted or decreased air movement noted. Abdomen: Soft, mild epigastric tenderness, Bowel sounds normal in all 4 quadrants. No distention noted. No organomegaly noted. No visible injury noted. Back: No CVA tenderness. Full range of motion noted. Skin: Skin warm and dry. Normal skin color. Normal skin turgor. No rashes/lesions/lacerations noted. Extremities: No lower extremity edema. Extremities exhibit normal range of motion. Extremities nontender. Neuro: Oriented X 3. Cranial nerve exam: II-XII are grossly intact No motor deficit. No sensory deficit. Reflexes normal. Course Reevaluation(s) Reevaluation #1: History of pancreatitis/gastritis. CT 4 days ago shows improvement of pancreatitis. Partial improvement with Dilaudid IV in the ED. Agreed today to be admitted for further inpatient GI evaluation. Time: 01:51 Medical Decision Making Differential Diagnosis Differential Diagnoses: The differential diagnosis associated with the presentation includes (Acute pancreatitis, acute gastritis, acute colitis, acute diverticulitis, electrolyte derangement, severe anemia.) Admission/Observation Consideration of admission/observation: Escalation of care including admission/observation considered Consult Healthcare Provider Management of the patient was discussed with: Hospitalist (Dr. Lopez) Lab Data [facility] Lab Attestation statement: I reviewed the patient's lab results. 02/21/25 00:39 02/21/25 00:39 Labs: Lab Results 02/21/25 02/21/25 Range/Units 00:39 01:03 WBC 5.1 (4.8-10.8) X10*3/uL RBC 4.80 (4.60-5.80) X10*6/uL Hgb 12.3 L (14.0-18.0) g/dl Hct 37.3 L (42.0-52.0) % MCV 77.7 L (80.0-98.0) fL MCH 25.6 L (27.0-33.0) pg MCHC 33.0 (31.0-36.0) g/dl RDW 16.1 H (11.0-16.0) % Plt Count 301 (160-400) X10*3/uL MPV 9.5 (9.4-12.4) fL Immature Gran % (Auto) 0.2 (0.0-0.4) % Neut % (Auto) 43.0 L (45-73) % Lymph % (Auto) 38.7 (20-40) % [place] % (Auto) 13.0 H (2-11) % Eos % (Auto) 3.9 (0-4) % Baso % (Auto) 1.2 (0-2) % Lymph # (Auto) 2.0 (1.2-4.9) X10*3/uL [place] # (Auto) 0.7 (0.1-1.2) X10*3/uL Eos # (Auto) 0.2 (0.0-0.4) X10*3/uL Baso # (Auto) 0.1 (0.0-0.2) X10*3/uL Abs Immat Gran (auto) 0.01 (0.00-0.03) X10*3/uL Absolute Neuts (auto) 2.2 (2.0-8.3) x10*3/uL Absolute Nucleated RBC 0.000 (0.0-0.012) X10*3/uL Nucleated RBC % (auto) 0.0 (0.0-0.2) /100WBC VBG pH 7.42 (7.32-7.43) VBG pCO2 39 mmHg VBG pO2 88 mmHg VBG HCO3 25 (22-26) mmol/L VBG O2 Saturation 98.0 % VBG Base Excess 1.2 mmol/L Sodium 142 (135-145) mmol/L Potassium 4.0 (3.3-5.1) mmol/L Chloride 105 (96-108) mmol/L Carbon Dioxide 26 (22-29) mmol/L Anion Gap 15 (12-20) BUN 22 H (9-16) mg/dL Creatinine 0.97 (0.5-1.4) mg/dL Estim Creat Clear Calc 135.5 Estimated GFR > 60 Random Glucose 117 H (60-115) mg/dL Calcium 9.0 (8.4-10.2) mg/dL Total Bilirubin 0.7 (0.0-1.0) mg/dL AST 44 H (5-37) U/L ALT 19 (0-40) U/L Alkaline Phosphatase 79 (39-117) U/L Total Protein 7.2 (6.5-8.0) g/dL Albumin 4.1 (3.5-5.0) g/dL Triglycerides 216 H (<150) mg/dL Lipase 52 (8-78) U/L Beta-Hydroxybutyrate 0.08 (0.02-0.27) mmol/L Medications Administered Generic Name Dose Route Start Last Admin Trade Name Freq PRN Reason Stop Dose Admin Sodium Chloride 1,000 mls @ 999 mls/hr 02/21/25 00:44 02/21/25 00:47 Ns IV 02/21/25 01:44 999 mls/hr .Q1H1M ONE Administration Discontinued Medications Generic Name Dose Route Start Last Admin Trade Name Freq PRN Reason Stop Dose Admin Al Hydroxide/Mg Hydroxide 30 ml 02/21/25 00:44 02/21/25 00:50 Magnesium Hydrox/Alum Hydrox 30 Ml Oral.Susp PO 02/21/25 00:45 30 ml ONCE ONE Administration Famotidine 20 mg 02/21/25 00:44 02/21/25 00:50 Famotidine/Pf 20 Mg/2 Ml Vial IVPUSH 02/21/25 00:45 20 mg ONCE ONE Administration Hydromorphone HCl 2 mg 02/21/25 00:44 02/21/25 00:50 Hydromorphone Hcl 2 Mg/Ml Vial IVPUSH 02/21/25 00:45 2 mg ONCE ONE Administration Protocol Discharge Plan Discharge Clinical Impression: Abdominal pain, Pancreatitis, Gastritis Patient Disposition: Admitted As Inpatient Print Language: German
[2025-02-21] MEDS: Magnesium Hydrox/Alum Hydrox 30 ML ORAL.SUSP PO (00:50)
[2025-02-21 01:00] LABS: Alanine Aminotransferase 19 U/L (0-40); Albumin Level 4.1 g/dL (3.5-5.0); Alkaline Phosphatase 79 U/L (39-117); Anion Gap 15 (12-20); Aspartate Amino Transferase 44 U/L (5-37); Blood Urea Nitrogen 22 mg/dL (9-16); Calcium 9.0 mg/dL (8.4-10.2); Carbon Dioxide 26 mmol/L (22-29); Chloride 105 mmol/L (96-108); Creatinine Clr Calc Pharmacy 135.5; Estimated Glomerular Filt Rate > 60; Lipase 52 U/L (8-78); Potassium 4.0 mmol/L (3.3-5.1); Sodium 142 mmol/L (135-145); Total Protein 7.2 g/dL (6.5-8.0); Triglycerides 216 mg/dL (<150)
[2025-02-21 01:04] LABS: Venous Blood Gas Refer to POC result
[2025-02-21 01:13] LABS: VBG HCO3 25 mmol/L (22-26); VBG O2 % Saturation 98.0 %
[2025-02-21 02:24] LABS: Iron 50 mcg/dL (45-160); Percent Iron Saturation 17 % (15-50); Total Iron Binding Capacity 293 mcg/dL (228-428); Unsaturated Iron Binding 243 ug/dL
--- NOTE | 2025-02-21 02:34 | PM.IMHP ---
History of Present Illness Date of Service: 02/21/25 Attending physician on admission: Ignacio Mcmillan Chief Complaint: abd pain Patient is a 29-year-old Panamanian-speaking male with a past history significant for diabetes, hyper triglyceridemia, recent ICU admission for pancreatitis secondary to hypertriglyceridemia, history DKA, who presented to the ED with severe epigastric pain after eating dinner. He denies any alcohol use. He was seen 5 days ago in the ED and had a CT of the abdomen and pelvis which showed improvement of the pancreatic pseudocyst and pancreatitis, lipase has been trending downwards. He is currently complaining of 7/10 upper abdominal pain, received Dilaudid 2 hours ago. He is scheduled to see Gastroenterology outpatient however this is not until May. When he was here 5 days ago he had improvement of his abdominal pain with a GI cocktail therefore gastritis/peptic ulcer disease was considered. At that time since he had improvement with the GI cocktail, he declined hospitalization. Review of Systems Constitutional: Constitutional: Denies body ache(s), Denies chills, Denies fatigue, Denies fever(s) and Denies headache(s) Eyes: Eyes: Denies change in vision ENT: Denies headache(s), Denies nasal congestion and Denies sore throat Cardiovascular: Cardiovascular: Denies chest pain, Denies rapid heart rate, Denies leg edema, Denies lightheadedness and Denies dyspnea Respiratory: Respiratory: Denies chest congestion, Denies cough, Denies dyspnea and Denies wheezing Gastrointestinal: Gastrointestinal: Reports as per HPI Genitourinary: Genitourinary: Denies dysuria and Denies urinary urgency Musculoskeletal: Musculoskeletal: Denies myalgias Integumentary/Breasts: Skin/Breast: Denies rash Neurologic: Denies confusion and Denies headache(s) Psychiatric: Psychiatric: Denies confusion Endocrine: Endocrine: Denies fatigue Hematologic/Lymphatic: Hematologic/Lymphatic: Denies easy bleeding and Denies easy bruising Allergic/Immunologic: Allergic/Immunologic: Denies wheezing PMFSH Medical History Skull lesion Hypertriglyceridemia Acute pancreatitis Diabetes mellitus Asthma No known health problems Functional capacity: independent ambulation Family History Maternal Grandmother Diabetes Social History Household Members: Significant Other Housing: Apartment Do you presently have visiting nurse or other home services: No Alcohol intake: never Comment: Spouse at bedside Patient Tobacco Use Status: Never used Tobacco Smoked in Last 30 Days: No Use of substances other than those prescribed or required for medical reasons: No Advance Directives: No Advance Directives Information Provided: Yes service: No Current occupational status: employed Narrative: no smoking or etoh Meds Allergies Allergy/AdvReac Type Severity Reaction Status Date / Time shellfish derived (SHELLFISH Allergy Intermediate RASH Verified 02/20/25 23:58 DERIVED) Active Medications: Current Medications Acetaminophen (Acetaminophen 325 Mg Tablet) 975 mg PO Q6H PRN PRN Reason: Pain, Mild 1-3,fever,headache Calcium Carbonate (Calcium Carbonate 750 Mg Tab.Chew) 750 mg PO Q4H PRN PRN Reason: Heartburn Enoxaparin Sodium (Enoxaparin Sodium 40 Mg/0.4 Ml Syringe) 40 mg SUBCUT Q24H [place] Hydromorphone HCl (Hydromorphone Hcl 1 Mg/Ml Syringe) 0.5 mg IVPUSH Q4H PRN; Protocol PRN Reason: Pain, Severe (Pain Scale 7-10) Lactated Ringer's (Lr) 1,000 mls @ 100 mls/hr IVCONT .Q10H [place] Magnesium Hydroxide (Milk Of Magnesia 30 Ml Oral.Susp) 30 ml PO DAILY PRN PRN Reason: Constipation Melatonin (Melatonin 3 Mg Tablet) 6 mg PO BEDTIME PRN PRN Reason: Insomnia Ondansetron HCl (Ondansetron Hcl 4 Mg/2 Ml Vial) 4 mg IVPUSH Q8H PRN PRN Reason: Nausea and Vomiting Oxycodone HCl (Oxycodone Hcl Immed Release 5 Mg Tablet) 5 mg PO Q6H PRN PRN Reason: Pain, Moderate(Pain Scale 4-6) Sodium Chloride (0.9 % Sodium Chloride Flush 3 Ml Syringe) 3 ml IVFLUSH QSHIFT [place] Home Medications ?Medication ?Instructions ?Recorded ?Confirmed ?Last Taken ?Type metformin 750 mg tablet,extended 750 mg PO BID 12/08/24 12/08/24 12/06/24 History release 24 hr Physical Exam Vital Signs and Narrative: Vital Signs: Last Vital Signs Temp 98.3 F 02/21/25 00:43 Pulse 64 02/21/25 01:49 Resp 17 02/21/25 01:49 BP 121/68 02/21/25 01:49 Pulse Ox 98 02/21/25 01:49 O2 Del Method Room Air 02/21/25 01:49 BMI result Body Mass Index 25.4 General: AOx3, appears uncomfortable, seen with who translates. 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 Motor grossly intact bilaterally Extremities: No LE edema Psych: Appropriate affect Const: General: No confusion Orientation/consciousness: No confusion Neuro: General: No confusion Results Labs 02/21/25 00:39 02/21/25 00:39 Labs: Laboratory Results - last 24 hr 02/21/25 02/21/25 00:39 01:03 MCV 77.7 L MCH 25.6 L MCHC 33.0 RDW 16.1 H Plt Count 301 MPV 9.5 Immature Gran % (Auto) 0.2 Neut % (Auto) 43.0 L Lymph % (Auto) 38.7 [place] % (Auto) 13.0 H Eos % (Auto) 3.9 Baso % (Auto) 1.2 Lymph # (Auto) 2.0 [place] # (Auto) 0.7 Eos # (Auto) 0.2 Baso # (Auto) 0.1 Abs Immat Gran (auto) 0.01 Absolute Neuts (auto) 2.2 Absolute Nucleated RBC 0.000 Nucleated RBC % (auto) 0.0 VBG pH 7.42 VBG pCO2 39 VBG pO2 88 VBG HCO3 25 VBG O2 Saturation 98.0 VBG Base Excess 1.2 Anion Gap 15 Estim Creat Clear Calc 135.5 Estimated GFR > 60 Random Glucose 117 H Calcium 9.0 Iron 50 TIBC 293 % Saturation 17 Unsat Iron Binding 243 Total Bilirubin 0.7 AST 44 H ALT 19 Alkaline Phosphatase 79 Total Protein 7.2 Albumin 4.1 Triglycerides 216 H Lipase 52 Beta-Hydroxybutyrate 0.08 Assessment and Plan (1) Pancreatitis: Status: Acute (2) Gastritis: Status: Acute (3) Microcytic anemia: Status: Acute Plan Patient is a 29-year-old Panamanian-speaking male with a past history significant for diabetes, hypertriglyceridemia, recent ICU admission for pancreatitis secondary to hypertriglyceridemia, history DKA, who presented to the ED with severe epigastric pain after eating dinner. acute pancreatitis/gastritis - no leukocytosis, vitals stable, no infection identified, no sepsis - A/P CT from 02/16/25 with acute interstitial edematous pancreatitis with significant decrease in size of pseudocysts - lipase normal at 52 - triglycerides 216 - clear liquid diet - received 1L IVF, continue LR 100ml.hr - famotidine 20mg x1, continue omeprazole at 40mg BID - pain management with oxycodone and dilaudid - GI consult - monitor CBC and CMP Microcytic anemia, chronic and stable - hemoglobin 12., MCV 77.7 - iron panel - fecal occult blood test - monitor CBC T2DM - no longer on metformin - sliding scale insulin hypertriglyceridemia - triglycerides 216 - continue gemfibrozil and statin Med rec pending Full code VTE prophylaxis: Lovenox Patient with acute pancreatitis/gastritis with intractable abdominal pain, requiring admission for at least 2 midnights stay for pain management and gastroenterology consultation. Quality Stroke Does the patient have a stroke diagnosis?: No VTE Prior VTE?: No VTE Risk Level:: Medical - moderate - high VTE Device Contraindication: Treatment Not Indicated VTE Drug Contraindication: N/A - Med Ordered
[2025-02-21] MEDS: Lactated Ringers 1,000 ML 100 ML IVCONT ×2 (03:05→14:00)
[2025-02-21] MEDS: oxyCODONE HCl Immed Release 5 MG TABLET PO ×2 (06:52→16:56)
[2025-02-21 07:23] LABS: Hematocrit 40.3 % (42.0-52.0); Hemoglobin 13.1 g/dl (14.0-18.0); Mean Corpuscular HGB Conc 32.5 g/dl (31.0-36.0); Mean Corpuscular Hemoglobin 25.2 pg (27.0-33.0); Mean Corpuscular Volume 77.5 fL (80.0-98.0); NRBC Abs Auto 0.000 X10*3/uL (0.0-0.012); NRBC Pct Auto 0.0 /100WBC (0.0-0.2); Platelet Count 304 X10*3/uL (160-400); Red Blood Count 5.20 X10*6/uL (4.60-5.80); White Blood Count 5.3 X10*3/uL (4.8-10.8)
[2025-02-21 07:36] LABS: Alanine Aminotransferase 19 U/L (0-40); Albumin Level 3.9 g/dL (3.5-5.0); Alkaline Phosphatase 70 U/L (39-117); Anion Gap 14 (12-20); Aspartate Amino Transferase 20 U/L (5-37); Blood Urea Nitrogen 18 mg/dL (9-16); Calcium 9.0 mg/dL (8.4-10.2); Carbon Dioxide 25 mmol/L (22-29); Chloride 106 mmol/L (96-108); Creatinine Clr Calc Pharmacy 170.7; Estimated Glomerular Filt Rate > 60; Potassium 3.9 mmol/L (3.3-5.1); Sodium 141 mmol/L (135-145); Total Protein 7.0 g/dL (6.5-8.0)
--- NOTE | 2025-02-21 07:44 | P.EN_ITS ---
Event Note Date of Service: 02/21/25 Event Note: Pt seen/examined, admitted this morning Patient is a 29-year-old Kyrgyz-speaking male with a past history significant for diabetes, hypertriglyceridemia, recent ICU admission for pancreatitis secondary to hypertriglyceridemia, history DKA, who presented to the ED with severe epigastric pain after eating dinner and admitted gastritis, pancreatitis Abdominal pain, Normal Lipase but recent CT fropm 02/16/25 with acute interstitial edematous pancreatitis with significant decrease in size of pseudocysts Pain control, IVF, advance diet, GI consult Microcytic anemia, chronic and stable hemoglobin 12., MCV 77.7 normal iron studies, no further w/u indicated T2DM no longer on metformin sliding scale insulin hypertriglyceridemia triglycerides 216 continue gemfibrozil and statin Med rec pending Full code VTE prophylaxis: Lovenox Patient with acute pancreatitis/gastritis with intractable abdominal pain, requiring admission for at least 2 midnights stay for pain management and gastroenterology consultation. Time Spent With Patient Time: Total time managing care of this patient today ____ minutes.
[2025-02-21 08:44] LABS: Glucose, Whole Blood 159 mg/dL (60-115)
--- NOTE | 2025-02-21 10:07 | PHA.MEDREC ---
Pharmacy Consult ? Medication Reconciliation Pharmacy has completed the medication reconciliation. Spoke to patient's visitor at bedside, she had a list of his medications on her phone. Confirmed they stopped metformin andare taking Lantus and Gabapentin as well as the medications he was prescribed on last visit.
--- NOTE | 2025-02-21 14:13 | MHC.CM.PN ---
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
[2025-02-21 15:53] LABS: Glucose, Whole Blood 111 mg/dL (60-115)
[2025-02-21 20:35] LABS: Glucose, Whole Blood 123 mg/dL (60-115)
--- NOTE | 2025-02-22 01:04 | CONS_ITS ---
DATE OF SERVICE: 02/21/2025 REFERRING PHYSICIAN: Dr. Ricketts REASON FOR CONSULTATION: Abdominal pain. HISTORY OF PRESENT ILLNESS: The patient is a pleasant 29-year-old man who was admitted to the hospital after presenting to the emergency department on February 21 with complaints of abdominal pain. He has a history of hyperlipidemia and was hospitalized with pancreatitis recently. Old records are reviewed. He also has a history of diabetes. He developed epigastric pain the night prior to admission and was evaluated in the emergency department and admitted to the hospital. He was previously seen 5 days ago, which evaluation included CT scanning and showed pancreatitis. He has been previously seen by Dr. Eisenberg on his previous admission and scheduled for followup CT scanning and outpatient evaluation. His most recent CT scan is reviewed in detail and shows acute interstitial edematous pancreatitis with significantly increase in the size of pseudocyst. He has no prior history of peptic ulcer disease and reports using omeprazole 20 mg daily on a regular basis. There has been no hematemesis, melena, or hematochezia. PAST MEDICAL HISTORY: 1. Pancreatitis with hypertriglyceridemia. 2. DKA. 3. Asthma. CURRENT MEDICATIONS: Current medication list is reviewed in the chart. ALLERGIES: SHELLFISH. FAMILY HISTORY: This is reviewed with the patient and is noncontributory. SOCIAL HISTORY: There is no current tobacco, alcohol, or substance abuse. REVIEW OF SYSTEMS: SKIN: No pruritus. HEENT: Negative. CARDIOPULMONARY: No shortness of breath or chest pain. GASTROINTESTINAL: As above. GENITOURINARY: Negative. NEUROPSYCHIATRIC: Negative. PHYSICAL EXAMINATION: GENERAL: Shows a pleasant male, in no acute distress. VITAL SIGNS: Are reviewed in the electronic medical record. SKIN: Anicteric. HEENT: Shows no scleral icterus. NECK: Without lymphadenopathy or thyromegaly. LUNGS: Clear. HEART: Shows regular rate and rhythm. S1, S2. No murmur. ABDOMEN: Soft. There is mild epigastric tenderness to palpation. Bowel sounds are present. No organomegaly is noted. EXTREMITIES: Without edema. LABORATORY DATA AND IMAGING STUDIES: Reviewed. My impression is that he appears to have epigastric pain. This was likely related to his recent episode of pancreatitis. Peptic ulcer disease seems unlikely based on his continued use of proton pump inhibitor. However, if his symptoms persist, he will need upper endoscopy. This can be done electively as an outpatient. In the interim, I would agree with treating his pancreatitis with IV fluids, antiemetics and pain medications as needed. His diet can be gradually advanced as he improves clinically. Thanks for asking me to see him. I will follow him in the hospital with you. MD JANKI Mahan/DAPHNE / [phone]
[2025-02-22] MEDS: Lactated Ringers 1,000 ML 100 ML IVCONT ×3 (01:40→19:31)
[2025-02-22 03:19] VITALS: BP 99/52; PULSE 55; RESP 16; TEMP 36; O2SAT 97
[2025-02-22 04:48] VITALS: BP 122/57
[2025-02-22 06:02] LABS: Hematocrit 39.4 % (42.0-52.0); Hemoglobin 13.1 g/dl (14.0-18.0); Mean Corpuscular HGB Conc 33.2 g/dl (31.0-36.0); Mean Corpuscular Hemoglobin 25.4 pg (27.0-33.0); Mean Corpuscular Volume 76.4 fL (80.0-98.0); NRBC Abs Auto 0.000 X10*3/uL (0.0-0.012); NRBC Pct Auto 0.0 /100WBC (0.0-0.2); Platelet Count 303 X10*3/uL (160-400); Red Blood Count 5.16 X10*6/uL (4.60-5.80); White Blood Count 7.0 X10*3/uL (4.8-10.8)
[2025-02-22 06:24] LABS: Alanine Aminotransferase 14 U/L (0-40); Albumin Level 3.8 g/dL (3.5-5.0); Alkaline Phosphatase 75 U/L (39-117); Anion Gap 20 (12-20); Aspartate Amino Transferase 20 U/L (5-37); Blood Urea Nitrogen 12 mg/dL (9-16); Calcium 8.9 mg/dL (8.4-10.2); Carbon Dioxide 24 mmol/L (22-29); Chloride 98 mmol/L (96-108); Creatinine Clr Calc Pharmacy 180.0; Estimated Glomerular Filt Rate > 60; Potassium 3.7 mmol/L (3.3-5.1); Sodium 138 mmol/L (135-145); Total Protein 6.7 g/dL (6.5-8.0)
[2025-02-22 07:57] VITALS: BP 125/57; PULSE 57; RESP 16; TEMP 36.2; O2SAT 94
[2025-02-22 07:57] LABS: Glucose, Whole Blood 114 mg/dL (60-115)
--- NOTE | 2025-02-22 08:35 | HO.PM.IMPN ---
Subjective Subjective Date of Service: 02/22/25 Interval History: f/u abdominal pain, recurrent pancreatitis pain is better and is tolerating clear liquid diet Physical Exam Vital Signs: Vital Signs: Last Vital Signs Temp 97.1 F 02/22/25 07:57 Pulse 57 02/22/25 07:57 Resp 16 02/22/25 07:57 BP 125/57 L 02/22/25 07:57 Pulse Ox 94 02/22/25 07:57 O2 Del Method Room Air 02/22/25 07:57 BMI result Body Mass Index 25.3 Const: Other: General: AO X 3, no acute distress Resp: CTA bilateral CVS: S1,S2,RRR GI: +BS, mild epig tenderness Skin: No rash Neuro: motor grossly intact Psych: appropriate affect Objective Data Active Medications Acetaminophen (Acetaminophen 325 Mg Tablet) 975 mg PO Q6H PRN PRN Reason: Pain, Mild 1-3,fever,headache Calcium Carbonate (Calcium Carbonate 750 Mg Tab.Chew) 750 mg PO Q4H PRN PRN Reason: Heartburn Enoxaparin Sodium (Enoxaparin Sodium 40 Mg/0.4 Ml Syringe) 40 mg SUBCUT BEDTIME [facility] Last Admin: 02/21/25 21:05 Dose: 40 mg Documented By: JENNIFER Hydromorphone HCl (Hydromorphone Hcl 1 Mg/Ml Syringe) 0.5 mg IVPUSH Q4H PRN; Protocol PRN Reason: Pain, Severe (Pain Scale 7-10) Last Admin: 02/22/25 07:50 Dose: 0.5 mg Documented By: JENNIFER Lactated Ringer's (Lr) 1,000 mls @ 100 mls/hr IVCONT .Q10H [facility] Last Admin: 02/22/25 01:40 Dose: 100 mls/hr Documented By: JENNIFER Magnesium Hydroxide (Milk Of Magnesia 30 Ml Oral.Susp) 30 ml PO DAILY PRN PRN Reason: Constipation Melatonin (Melatonin 3 Mg Tablet) 6 mg PO BEDTIME PRN PRN Reason: Insomnia Omeprazole (Omeprazole 40 Mg Capsule.Dr) 40 mg PO BID@0630,1630 [facility] Last Admin: 02/22/25 07:02 Dose: Not Given Documented By: JENNIFER Non-Admin Reason: Patient Asleep Ondansetron HCl (Ondansetron Hcl 4 Mg/2 Ml Vial) 4 mg IVPUSH Q8H PRN PRN Reason: Nausea and Vomiting Last Admin: 02/22/25 07:54 Dose: 4 mg Documented By: JENNIFER Oxycodone HCl (Oxycodone Hcl Immed Release 5 Mg Tablet) 5 mg PO Q6H PRN PRN Reason: Pain, Moderate(Pain Scale 4-6) Last Admin: 02/21/25 16:56 Dose: 5 mg Documented By: NALLELY Sodium Chloride (0.9 % Sodium Chloride Flush 3 Ml Syringe) [address] [facility] Last Admin: 02/22/25 07:42 Dose: Not Given Documented By: JENNIFER Non-Admin Reason: IV Running Labs 02/22/25 05:29 02/22/25 05:29 Labs: Laboratory Results - last 24 hr 02/21/25 02/21/25 02/21/25 08:31 15:50 20:30 MCV MCH MCHC RDW Plt Count MPV Absolute Nucleated RBC Nucleated RBC % (auto) Anion Gap Estim Creat Clear Calc Estimated GFR POC Glucose 159 H 111 123 H Random Glucose Calcium Total Bilirubin AST ALT Alkaline Phosphatase Total Protein Albumin 02/22/25 02/22/25 05:29 07:34 MCV 76.4 L MCH 25.4 L MCHC 33.2 RDW 15.9 Plt Count 303 MPV 9.5 Absolute Nucleated RBC 0.000 Nucleated RBC % (auto) 0.0 Anion Gap 20 Estim Creat Clear Calc 180.0 Estimated GFR > 60 POC Glucose 114 Random Glucose 105 Calcium 8.9 Total Bilirubin 1.4 H AST 20 ALT 14 Alkaline Phosphatase 75 Total Protein 6.7 Albumin 3.8 Assessment and Plan (1) DKA (diabetic ketoacidosis): Status: Resolved (2) Hypertriglyceridemia: Status: Inactive (3) Acute pancreatitis: Status: Resolved Plan Patient is a 29-year-old Telugu-speaking male with a past history significant for diabetes, hypertriglyceridemia, recent ICU admission for pancreatitis secondary to hypertriglyceridemia, history DKA, who presented to the ED with severe epigastric pain after eating dinner and admitted gastritis, pancreatitis Abdominal pain, Normal Lipase but recent CT fropm 02/16/25 with acute interstitial edematous pancreatitis with significant decrease in size of pseudocysts Pain control, IVF, advance diet. GI recommend advancing diet, and possible elective outpatient endoscopy Microcytic anemia, chronic and stable hemoglobin 12., MCV 77.7 normal iron studies, no further w/u indicated T2DM, FBS 114 no longer on metformin sliding scale insulin hypertriglyceridemia triglycerides 216 continue gemfibrozil and statin Med rec pending Full code VTE prophylaxis: Lovenox Patient with acute pancreatitis/gastritis with intractable abdominal pain, requiring admission for at least 2 midnights stay for pain management and gastroenterology consultation. Quality Stroke Does the patient have a stroke diagnosis?: No VTE Prior VTE?: No VTE Risk Level:: Medical - moderate - high VTE Device Contraindication: Treatment Not Indicated VTE Drug Contraindication: N/A - Med Ordered
[2025-02-22 11:54] LABS: Glucose, Whole Blood 134 mg/dL (60-115)
[2025-02-22] MEDS: oxyCODONE HCl Immed Release 5 MG TABLET PO ×2 (14:30→23:55)
[2025-02-22 15:31] VITALS: BP 138/77; PULSE 53; RESP 12; TEMP 36.2; O2SAT 96
[2025-02-22 15:54] LABS: Glucose, Whole Blood 131 mg/dL (60-115)
[2025-02-22 19:46] VITALS: BP 116/67; PULSE 55; RESP 18; TEMP 36.4; O2SAT 94
[2025-02-22 20:17] LABS: Glucose, Whole Blood 113 mg/dL (60-115)
[2025-02-23 03:19] VITALS: BP 124/69; PULSE 59; RESP 20; TEMP 36.1; O2SAT 96
[2025-02-23] MEDS: Lactated Ringers 1,000 ML 100 ML IVCONT ×2 (04:39→15:15)
[2025-02-23 07:46] LABS: Glucose, Whole Blood 108 mg/dL (60-115)
[2025-02-23 07:49] VITALS: BP 123/57; PULSE 60; RESP 18; TEMP 36.3; O2SAT 94
[2025-02-23] MEDS: Insulin Glargine,Hum.rec.anlog 100 UNIT/ML 10 ML VIAL 10 UNIT SUBCUT (08:47)
[2025-02-23 09:51] LABS: Hematocrit 38.7 % (42.0-52.0); Hemoglobin 12.6 g/dl (14.0-18.0); Mean Corpuscular HGB Conc 32.6 g/dl (31.0-36.0); Mean Corpuscular Hemoglobin 25.0 pg (27.0-33.0); Mean Corpuscular Volume 76.6 fL (80.0-98.0); NRBC Abs Auto 0.000 X10*3/uL (0.0-0.012); NRBC Pct Auto 0.0 /100WBC (0.0-0.2); Platelet Count 296 X10*3/uL (160-400); Red Blood Count 5.05 X10*6/uL (4.60-5.80); White Blood Count 6.8 X10*3/uL (4.8-10.8)
[2025-02-23 09:58] LABS: Alanine Aminotransferase 45 U/L (0-40); Albumin Level 4.2 g/dL (3.5-5.0); Alkaline Phosphatase 83 U/L (39-117); Anion Gap 13 (12-20); Aspartate Amino Transferase 38 U/L (5-37); Blood Urea Nitrogen 10 mg/dL (9-16); Calcium 9.2 mg/dL (8.4-10.2); Carbon Dioxide 28 mmol/L (22-29); Chloride 102 mmol/L (96-108); Creatinine Clr Calc Pharmacy 147.6; Estimated Glomerular Filt Rate > 60; Lipase 27 U/L (8-78); Potassium 3.6 mmol/L (3.3-5.1); Sodium 139 mmol/L (135-145); Total Protein 7.4 g/dL (6.5-8.0)
--- NOTE | 2025-02-23 10:35 | P.PNIM_ITS ---
Subjective Subjective Date of Service: 02/23/25 Interval History: f/u abdominal pain, recurrent pancreatitis He is reporting more pain Physical Exam 2 Vital Signs: Vital Signs: Last Vital Signs Temp 97.3 F 02/23/25 07:49 Pulse 60 02/23/25 07:49 Resp 18 02/23/25 07:49 BP 123/57 L 02/23/25 07:49 Pulse Ox 94 02/23/25 07:49 O2 Del Method Room Air 02/23/25 07:49 BMI result Body Mass Index 25.3 Const: Other: General: AO X 3, no acute distress Resp: CTA bilateral CVS: S1,S2,RRR GI: +BS, mild epig tenderness Skin: No rash Neuro: motor grossly intact Psych: appropriate affect Objective Data Active Medications Acetaminophen (Acetaminophen 325 Mg Tablet) 975 mg PO Q6H PRN PRN Reason: Pain, Mild 1-3,fever,headache Atorvastatin Calcium (Atorvastatin Calcium 80 Mg Tablet) 80 mg PO BEDTIME [place] Calcium Carbonate (Calcium Carbonate 750 Mg Tab.Chew) 750 mg PO Q4H PRN PRN Reason: Heartburn Enoxaparin Sodium (Enoxaparin Sodium 40 Mg/0.4 Ml Syringe) 40 mg SUBCUT BEDTIME [facility] Last Admin: 02/22/25 19:27 Dose: 40 mg Documented By: JNENIFER Gabapentin (Gabapentin 300 Mg Capsule) 300 mg PO TID [facility] Last Admin: 02/23/25 08:47 Dose: 300 mg Documented By: JENNIFER Gemfibrozil (Gemfibrozil 600 Mg Tablet) 600 mg PO DAILY [facility] Last Admin: 02/23/25 08:47 Dose: 600 mg Documented By: JENNIFER Hydromorphone HCl (Hydromorphone Hcl 1 Mg/Ml Syringe) 0.5 mg IVPUSH Q4H PRN; Protocol PRN Reason: Pain, Severe (Pain Scale 7-10) Last Admin: 02/23/25 08:55 Dose: 0.5 mg Documented By: JENNIFER Lactated Ringer's (Lr) 1,000 mls @ 100 mls/hr IVCONT .Q10H [facility] Last Admin: 02/23/25 04:39 Dose: 100 mls/hr Documented By: JENNIFER Insulin Glargine (Insulin Glargine,Hum.Rec.Anlog 100 Unit/Ml 10 Ml Vial) 10 unit SUBCUT DAILY [facility] Last Admin: 02/23/25 08:47 Dose: 10 unit Documented By: JENNIFER Magnesium Hydroxide (Milk Of Magnesia 30 Ml Oral.Susp) 30 ml PO DAILY PRN PRN Reason: Constipation Melatonin (Melatonin 3 Mg Tablet) 6 mg PO BEDTIME PRN PRN Reason: Insomnia Omeprazole (Omeprazole 20 Mg Capsule.Dr) 20 mg PO DAILY@0630 [facility] Ondansetron HCl (Ondansetron Hcl 4 Mg/2 Ml Vial) 4 mg IVPUSH Q8H PRN PRN Reason: Nausea and Vomiting Last Admin: 02/23/25 01:01 Dose: 4 mg Documented By: JENNIFER Oxycodone HCl (Oxycodone Hcl Immed Release 5 Mg Tablet) 5 mg PO Q6H PRN PRN Reason: Pain, Moderate(Pain Scale 4-6) Last Admin: 02/22/25 23:55 Dose: 5 mg Documented By: JENNIFER Comments: per pt request Sodium Chloride (0.9 % Sodium Chloride Flush 3 Ml Syringe) 3 ml IVFLUSH QSHIFT [facility] Last Admin: 02/23/25 08:48 Dose: Not Given Documented By: JENNIFER Non-Admin Reason: IV Running Labs 02/23/25 09:30 02/23/25 09:30 Labs: Laboratory Results - last 24 hr 02/22/25 02/22/25 02/22/25 11:51 15:47 20:11 MCV MCH MCHC RDW Plt Count MPV Absolute Nucleated RBC Nucleated RBC % (auto) Anion Gap Estim Creat Clear Calc Estimated GFR POC Glucose 134 H 131 H 113 Random Glucose Calcium Total Bilirubin AST ALT Alkaline Phosphatase Total Protein Albumin Lipase 02/23/25 02/23/25 07:42 09:30 MCV 76.6 L MCH 25.0 L MCHC 32.6 RDW 15.5 Plt Count 296 MPV 9.4 Absolute Nucleated RBC 0.000 Nucleated RBC % (auto) 0.0 Anion Gap 13 Estim Creat Clear Calc 147.6 Estimated GFR > 60 POC Glucose 108 Random Glucose 115 Calcium 9.2 Total Bilirubin 1.9 H AST 38 H ALT 45 H Alkaline Phosphatase 83 Total Protein 7.4 Albumin 4.2 Lipase 27 Assessment and Plan (1) DKA (diabetic ketoacidosis): Status: Resolved (2) Hypertriglyceridemia: Status: Inactive (3) Acute pancreatitis: Status: Resolved Plan Patient is a 29-year-old Norwegian-speaking male with a past history significant for diabetes, hypertriglyceridemia, recent ICU admission for pancreatitis secondary to hypertriglyceridemia, history DKA, who presented to the ED with severe epigastric pain after eating dinner and admitted gastritis, pancreatitis Abdominal pain, Normal Lipase but recent CT fropm 02/16/25 with acute interstitial edematous pancreatitis with significant decrease in size of pseudocysts Pain control, IVF, advance diet. GI recommend advancing diet, and possible elective outpatient endoscopy. repeat CT today. Lipase only 27 Microcytic anemia, chronic and stable hemoglobin 12., MCV 77.7 normal iron studies, no further w/u indicated T2DM, FBS 114 no longer on metformin sliding scale insulin hypertriglyceridemia triglycerides 216 continue gemfibrozil and statin Full code VTE prophylaxis: Lovenox Patient with acute pancreatitis/gastritis with intractable abdominal pain, requiring admission for at least 2 midnights stay for pain management and gastroenterology consultation. Quality Stroke Does the patient have a stroke diagnosis?: No VTE Prior VTE?: No VTE Risk Level:: Medical - moderate - high VTE Device Contraindication: Treatment Not Indicated VTE Drug Contraindication: N/A - Med Ordered
[2025-02-23 11:20] LABS: Glucose, Whole Blood 105 mg/dL (60-115)
[2025-02-23] MEDS: oxyCODONE HCl Immed Release 5 MG TABLET PO (13:09)
[2025-02-23 15:42] VITALS: BP 142/72; PULSE 62; RESP 14; TEMP 35.9; O2SAT 95
[2025-02-23] MEDS: iohexoL 350 MG/ML 100 ML INFUS..BTL IV (16:20)
[2025-02-23 16:46] LABS: Glucose, Whole Blood 119 mg/dL (60-115)
--- NOTE | 2025-02-23 19:11 | PM.CNGS ---
History of Present Illness Consult details Consult date: 02/23/25 Requesting physician: Maynor Ricketts Narrative: Patient is a 29-year-old Sammarinese-speaking male with a past history significant for diabetes, hyper triglyceridemia, recent ICU admission for pancreatitis secondary to hypertriglyceridemia, history DKA, who presented to the ED with severe epigastric pain after eating dinner. He denies any alcohol use. He was seen 5 days ago in the ED and had a CT of the abdomen and pelvis which showed improvement of the pancreatic pseudocyst and pancreatitis, lipase has been trending downwards. Today he was complaining of epigastric burning and pain feeling different so CT scan repeated showing dilated small bowel and decompressed distal bowel - high grade obstruction.Pt has never had any surgery -had thrown up day before maybe a little this am. Not feeling nauseated right now. Says passing gas -tenderness is in the epigastric area. Has not had a bowel movement. Review of Systems Review of Systems: Yes all other systems are reviewed and are negative PMFSH Past Medical History Medical History Skull lesion Hypertriglyceridemia Acute pancreatitis Diabetes mellitus Asthma No known health problems Family History Family History Maternal Grandmother Diabetes Social History Social History Household Members: Spouse Housing: Apartment Do you presently have visiting nurse or other home services: No Alcohol intake: never Comment: Spouse at bedside Patient Tobacco Use Status: Never used Tobacco service: No Current occupational status: employed Meds Allergies Allergy/AdvReac Type Severity Reaction Status Date / Time shellfish derived (SHELLFISH Allergy Intermediate RASH Verified 02/20/25 23:58 DERIVED) Active Medications: Current Medications Acetaminophen (Acetaminophen 325 Mg Tablet) 975 mg PO Q6H PRN PRN Reason: Pain, Mild 1-3,fever,headache Atorvastatin Calcium (Atorvastatin Calcium 80 Mg Tablet) 80 mg PO BEDTIME [place] Calcium Carbonate (Calcium Carbonate 750 Mg Tab.Chew) 750 mg PO Q4H PRN PRN Reason: Heartburn Enoxaparin Sodium (Enoxaparin Sodium 40 Mg/0.4 Ml Syringe) 40 mg SUBCUT BEDTIME [place] Last Admin: 02/22/25 19:27 Dose: 40 mg Gabapentin (Gabapentin 300 Mg Capsule) 300 mg PO TID [facility] Last Admin: 02/23/25 15:21 Dose: 300 mg Gemfibrozil (Gemfibrozil 600 Mg Tablet) 600 mg PO DAILY [facility] Last Admin: 02/23/25 08:47 Dose: 600 mg Hydromorphone HCl (Hydromorphone Hcl 1 Mg/Ml Syringe) 1 mg IVPUSH Q4H PRN; Protocol PRN Reason: Pain, Severe (Pain Scale 7-10) Lactated Ringer's (Lr) 1,000 mls @ 100 mls/hr IVCONT .Q10H [facility] Last Admin: 02/23/25 15:15 Dose: 100 mls/hr Insulin Glargine (Insulin Glargine,Hum.Rec.Anlog 100 Unit/Ml 10 Ml Vial) 10 unit SUBCUT DAILY [facility] Last Admin: 02/23/25 08:47 Dose: 10 unit Magnesium Hydroxide (Milk Of Magnesia 30 Ml Oral.Susp) 30 ml PO DAILY PRN PRN Reason: Constipation Melatonin (Melatonin 3 Mg Tablet) 6 mg PO BEDTIME PRN PRN Reason: Insomnia Omeprazole (Omeprazole 20 Mg Capsule.Dr) 20 mg PO DAILY@0630 [facility] Ondansetron HCl (Ondansetron Hcl 4 Mg/2 Ml Vial) 4 mg IVPUSH Q8H PRN PRN Reason: Nausea and Vomiting Last Admin: 02/23/25 01:01 Dose: 4 mg Oxycodone HCl (Oxycodone Hcl Immed Release 5 Mg Tablet) 5 mg PO Q6H PRN PRN Reason: Pain, Moderate(Pain Scale 4-6) Last Admin: 02/23/25 13:09 Dose: 5 mg Sodium Chloride (0.9 % Sodium Chloride Flush 3 Ml Syringe) 3 ml IVFLUSH QSHIFT [facility] Last Admin: 02/23/25 15:22 Dose: Not Given Home Medications ?Medication ?Instructions ?Recorded ?Confirmed ?Last Taken ?Type gabapentin 300 mg capsule 300 mg PO TID 02/21/25 02/21/25 02/20/25 History insulin glargine 100 unit/mL (3 10 unit subcut DAILY 02/21/25 02/21/25 02/20/25 History mL) subcutaneous pen (Lantus Solostar U-100 Insulin) Physical Exam Vital Signs: Vital Signs: Last Vital Signs Temp 96.7 F L 02/23/25 15:42 Pulse 62 02/23/25 15:42 Resp 14 02/23/25 15:42 BP 142/72 H 02/23/25 15:42 Pulse Ox 95 02/23/25 15:42 O2 Del Method Room Air 02/23/25 15:42 BMI result Body Mass Index 25.3 Const: General: cooperative, healthy appearing and comfortable GI: Other: abdomen is soft nondistended tenderness upper epigastic area and then left upper quadrant mild mid left abdomen bowel sounds active Results Labs 02/23/25 09:30 02/23/25 09:30 Labs: Abnormal lab results 02/23/25 02/23/25 Range/Units 09:30 16:35 Hgb 12.6 L (14.0-18.0) g/dl Hct 38.7 L (42.0-52.0) % MCV 76.6 L (80.0-98.0) fL MCH 25.0 L (27.0-33.0) pg POC Glucose 119 H (60-115) mg/dL Total Bilirubin 1.9 H (0.0-1.0) mg/dL AST 38 H (5-37) U/L ALT 45 H (0-40) U/L Short CBC 02/23/25 Range/Units 09:30 WBC 6.8 (4.8-10.8) X10*3/uL Hgb 12.6 L (14.0-18.0) g/dl Hct 38.7 L (42.0-52.0) % Plt Count 296 (160-400) X10*3/uL BMP 02/23/25 09:30 Sodium 139 Potassium 3.6 Chloride 102 Carbon Dioxide 28 BUN 10 Creatinine 0.89 Calcium 9.2 Liver Function 02/23/25 Range/Units 09:30 Total Bilirubin 1.9 H (0.0-1.0) mg/dL AST 38 H (5-37) U/L ALT 45 H (0-40) U/L Alkaline Phosphatase 83 (39-117) U/L Albumin 4.2 (3.5-5.0) g/dL All other labs normal. Imaging Additional studies: ent: Chato Dickinson MR#: [id number] : 1995 Acct:[id number] Age/Sex: 29 / M ADM Date: 02/21/25 Loc: HO.S3 351-[address]: Maynor Ricketts MD Ordering Physician: Maynor Ricketts MD Date of Service: 02/23/25 Procedure(s): CT abdomen pelvis w IV con Accession Number(s): [id number] cc: Maynor Ricketts MD; Physician,Unknown ~ Report Number: [id number]: Total DLP = 1293.00 mGy-cm ADDENDUMThis document has been electronically signed by: Franklin Marcum MD on 02/23/2025 17:34:57 ADDENDUM: This report was discussed with Alysa Pineda RN on Feb 23, 2025 17:40:00 EDT. This document has been electronically signed by: Rose Aguayo on 02/23/2025 17:41:07 Addendum Dictated By: Franklin Marcum MD Addendum Signed By: <Electronically signed by Franklin Marcum MD in [place]> 02/23/251741 Addendum Cosigned By: DD/ TD/TT: 02/23/25 CLINICAL HISTORY: Pancreatitis CT abdomen and pelvis with IV contrast. COMPARISON: CT abdomen and pelvis dated 02/16/25 at 02:39 EDT FINDINGS: Partially visualized lung bases are unremarkable. Liver is enlarged with right lobe measuring 22.1 cm. Normal spleen. Normal adrenal glands. Symmetric renal enhancement. No hydronephrosis. There are extensive inflammatory changes along the pancreatic body and tail with fluid collection along the tail, similar to prior imaging measuring in total approximately 5.9 x 7.6 x 3.3 cm (series 4, image 198). Fluid extends inferiorly along the left pericolic gutter. Pancreatic duct is not dilated. No choledocholithiasis. Stomach is distended with fluid with air-fluid level. Loops of small bowel within the midabdomen are dilated measuring up to 4.0 cm with air-fluid level. Focal transition point likely in the left lower quadrant. More distal small bowel is contracted. No free intraperitoneal air. Multiple normal-sized mesenteric lymph nodes primarily along the mesenteric root. Normal abdominal aorta. Urinary bladder is unremarkable given degree of distention. No inguinal lymphadenopathy. Small fat containing umbilical hernia. No acute fracture or suspicious bone lesion. IMPRESSION: 1. High-grade small-bowel obstruction. Small bowel is dilated measuring up to 4.0 cm with focal transition point likely in the left lower quadrant. 2. Pancreatitis with large pseudocysts along the pancreatic body and tail and fluid extending along the left pericolic gutter, not significantly changed from prior imaging. 3. Hepatomegaly. This document has been electronically signed by: Franklin Marcum MD on 02/23/2025 17:34:57 Dictated By: Franklin Marcum MD Signed By: <Electronically signed by Franklin Marcum MD in [place]> 02/23/25 [id number] Assessment and Plan (1) Small bowel obstruction: Status: Acute Plan 29 year old male with DM and recent episodes of repeating pancreatitis now with findings of sbo -? etiology - pt stable - exam and wbc and ct findings recommend npo, ivf, ngtube decompression, small bowel follow through study /gastrograffin study tomorrow - correct electrolytes. discussed with pt and his girlfriend and they agree with the plan Procedures Date of Service Date of Service: 02/23/25
[2025-02-23 19:58] LABS: Glucose, Whole Blood 97 mg/dL (60-115)
[2025-02-23 19:59] VITALS: BP 128/70; PULSE 53; RESP 16; TEMP 36.1; O2SAT 95
[2025-02-23] MEDS: Throat Spray, Medicated 177 ML BOTTLE 1 SPRAY MUCOUS MEM (21:48)
[2025-02-24] MEDS: Lactated Ringers 1,000 ML 100 ML IVCONT ×4 (00:42→20:47)
[2025-02-24 03:10] VITALS: PULSE 77; O2SAT 97
[2025-02-24] MEDS: diazePAM 10 MG/2 ML CARTRIDGE 2.5 MG IVPUSH (03:16)
[2025-02-24 04:00] VITALS: BP 137/76; PULSE 53; RESP 18; TEMP 36.4; O2SAT 92
--- NOTE | 2025-02-24 07:40 | P.PNGS_ITS ---
Subjective Subjective Date of Service: 02/24/25 Interval history: NGT with 900cc overnight. C/o NGT discomfort. Denies abd pain. Passing flatus. No significant ambulation. Physical Exam 2 Vital Signs: Vital Signs: Last Vital Signs Temp 97.5 F 02/24/25 04:00 Pulse 53 02/24/25 04:00 Resp 18 02/24/25 04:00 BP 137/76 02/24/25 04:00 Pulse Ox 92 02/24/25 04:00 O2 Del Method Room Air 02/24/25 04:00 BMI result Body Mass Index 25.3 Const: General: comfortable, no acute distress and alert O rientation/consciousness: patient oriented x3 Resp: Effort & Inspection: normal respiratory effort GI: Inspection: No distended Palpation (GI): Soft to palpation, nontender and no guarding Skin: General skin exam: no rashes or lesions noted Neuro: General: patient oriented x3 Objective Data Active Medications Acetaminophen (Acetaminophen 325 Mg Tablet) 975 mg PO Q6H PRN PRN Reason: Pain, Mild 1-3,fever,headache Atorvastatin Calcium (Atorvastatin Calcium 80 Mg Tablet) 80 mg PO BEDTIME [facility] Last Admin: 02/23/25 22:02 Dose: Not Given Documented By: KEVON Non-Admin Reason: NPO Calcium Carbonate (Calcium Carbonate 750 Mg Tab.Chew) 750 mg PO Q4H PRN PRN Reason: Heartburn Enoxaparin Sodium (Enoxaparin Sodium 40 Mg/0.4 Ml Syringe) 40 mg SUBCUT BEDTIME [facility] Last Admin: 02/23/25 21:49 Dose: 40 mg Documented By: KEVON Gabapentin (Gabapentin 300 Mg Capsule) 300 mg PO TID [facility] Last Admin: 02/23/25 22:02 Dose: Not Given Documented By: KEVON Non-Admin Reason: NPO Gemfibrozil (Gemfibrozil 600 Mg Tablet) 600 mg PO DAILY [facility] Last Admin: 02/23/25 08:47 Dose: 600 mg Documented By: JENNIFER Hydromorphone HCl (Hydromorphone Hcl 1 Mg/Ml Syringe) 1 mg IVPUSH Q4H PRN; Protocol PRN Reason: Pain, Severe (Pain Scale 7-10) Last Admin: 02/23/25 19:40 Dose: 1 mg Documented By: KEVON Lactated Ringer's (Lr) 1,000 mls @ 100 mls/hr IVCONT .Q10H [facility] Last Admin: 02/24/25 00:42 Dose: 100 mls/hr Documented By: KEVON Insulin Glargine (Insulin Glargine,Hum.Rec.Anlog 100 Unit/Ml 10 Ml Vial) 10 unit SUBCUT DAILY [facility] Last Admin: 02/23/25 08:47 Dose: 10 unit Documented By: JENNIFER Magnesium Hydroxide (Milk Of Magnesia 30 Ml Oral.Susp) 30 ml PO DAILY PRN PRN Reason: Constipation Melatonin (Melatonin 3 Mg Tablet) 6 mg PO BEDTIME PRN PRN Reason: Insomnia Multi-Ingred Medicated Throat [place] (Throat [place], Medicated 177 Ml Bottle) 1 spray MUCOUS MEM Q2H PRN PRN Reason: throat pain Last Admin: 02/23/25 21:48 Dose: 1 spray Documented By: KEVON Omeprazole (Omeprazole 20 Mg Capsule.Dr) 20 mg PO DAILY@0630 [facility] Last Admin: 02/24/25 05:21 Dose: Not Given Documented By: KEVON Non-Admin Reason: NPO Ondansetron HCl (Ondansetron Hcl 4 Mg/2 Ml Vial) 4 mg IVPUSH Q8H PRN PRN Reason: Nausea and Vomiting Last Admin: 02/23/25 19:40 Dose: 4 mg Documented By: KEVON Oxycodone HCl (Oxycodone Hcl Immed Release 5 Mg Tablet) 5 mg PO Q6H PRN PRN Reason: Pain, Moderate(Pain Scale 4-6) Last Admin: 02/23/25 13:09 Dose: 5 mg Documented By: JENNIFER Sodium Chloride (0.9 % Sodium Chloride Flush 3 Ml Syringe) 3 ml IVFLUSH QSHIFT [facility] Last Admin: 02/24/25 01:24 Dose: Not Given Documented By: KEVON Non-Admin Reason: IV Running Labs 02/24/25 06:56 02/23/25 09:30 Labs: Laboratory Results - last 24 hr 02/23/25 02/23/25 02/23/25 07:42 09:30 11:17 MCV 76.6 L MCH 25.0 L MCHC 32.6 RDW 15.5 Plt Count 296 MPV 9.4 Absolute Nucleated RBC 0.000 Nucleated RBC % (auto) 0.0 Anion Gap 13 Estim Creat Clear Calc 147.6 Estimated GFR > 60 POC Glucose 108 105 Random Glucose 115 Calcium 9.2 Total Bilirubin 1.9 H AST 38 H ALT 45 H Alkaline Phosphatase 83 Total Protein 7.4 Albumin 4.2 Lipase 27 02/23/25 02/23/25 16:35 19:26 MCV MCH MCHC RDW Plt Count MPV Absolute Nucleated RBC Nucleated RBC % (auto) Anion Gap Estim Creat Clear Calc Estimated GFR POC Glucose 119 H 97 Random Glucose Calcium Total Bilirubin AST ALT Alkaline Phosphatase Total Protein Albumin Lipase Procedures Date of Service Date of Service: 02/24/25 Progress Note: A&P Assessment and plan (1) Ileus: Status: Acute (2) Pancreatitis: Status: Acute Plan Likely with segmental ileus secondary to pancreatitis. He has never had surgery before. Stomach significantly distended on imaging with centrally dilated small bowel loops. NGT with 900cc output overnight. He is adament about having NGT removed. Discussed that output needs to downtrend. He was encouraged to ambulate to promote GI function, reduce narcotics. Will reassess later. Ok to clamp nGT for ambulation, have ice chips. Time Spent With Patient Time: Total time managing care of this patient today ____ minutes. Quality Stroke Does the patient have a stroke diagnosis?: No VTE Prior VTE?: No VTE Risk Level:: Medical - moderate - high VTE Device Contraindication: Treatment Not Indicated VTE Drug Contraindication: N/A - Med Ordered
[2025-02-24 07:43] VITALS: BP 135/74; PULSE 53; RESP 18; TEMP 36.1; O2SAT 96
[2025-02-24 07:51] LABS: Glucose, Whole Blood 117 mg/dL (60-115)
[2025-02-24 08:12] LABS: Hematocrit 40.3 % (42.0-52.0); Hemoglobin 13.3 g/dl (14.0-18.0); Mean Corpuscular HGB Conc 33.0 g/dl (31.0-36.0); Mean Corpuscular Hemoglobin 25.3 pg (27.0-33.0); Mean Corpuscular Volume 76.8 fL (80.0-98.0); NRBC Abs Auto 0.000 X10*3/uL (0.0-0.012); NRBC Pct Auto 0.0 /100WBC (0.0-0.2); Platelet Count 309 X10*3/uL (160-400); Red Blood Count 5.25 X10*6/uL (4.60-5.80); White Blood Count 6.2 X10*3/uL (4.8-10.8)
[2025-02-24 08:42] LABS: Anion Gap 15 (12-20); Blood Urea Nitrogen 10 mg/dL (9-16); Calcium 9.2 mg/dL (8.4-10.2); Carbon Dioxide 27 mmol/L (22-29); Chloride 102 mmol/L (96-108); Creatinine Clr Calc Pharmacy 162.2; Estimated Glomerular Filt Rate > 60; Potassium 3.3 mmol/L (3.3-5.1); Sodium 141 mmol/L (135-145)
--- NOTE | 2025-02-24 09:51 | HO.PM.IMPN ---
Subjective Subjective Date of Service: 02/24/25 Interval History: f/u abdominal pain, sbo on CT 02/23 and has NGT, abdominal pain is much improved has sore throat from NGT Physical Exam Vital Signs: Vital Signs: Last Vital Signs Temp 97.0 F 02/24/25 07:43 Pulse 53 02/24/25 07:43 Resp 18 02/24/25 07:43 BP 135/74 02/24/25 07:43 Pulse Ox 96 02/24/25 07:43 O2 Del Method Room Air 02/24/25 07:43 BMI result Body Mass Index 25.3 Const: Other: General: AO X 3, no acute distress Resp: CTA bilateral CVS: S1,S2,RRR GI: +BS, non tender, no distention Skin: No rash Neuro: motor grossly intact Psych: appropriate affect Objective Data Active Medications Acetaminophen (Acetaminophen 325 Mg Tablet) 975 mg PO Q6H PRN PRN Reason: Pain, Mild 1-3,fever,headache Atorvastatin Calcium (Atorvastatin Calcium 80 Mg Tablet) 80 mg PO BEDTIME [facility]S [facility]CLUDE 234 BEDS AT [facility] Last Admin: 02/23/25 22:02 Dose: Not Given Documented By: KEVON Non-Admin Reason: NPO Benzocaine (Throat [place], Medicated Lozenge) 1 lozenge MUCOUS MEM Q2H PRN PRN Reason: Sore Throat Calcium Carbonate (Calcium Carbonate 750 Mg Tab.Chew) 750 mg PO Q4H PRN PRN Reason: Heartburn Enoxaparin Sodium (Enoxaparin Sodium 40 Mg/0.4 Ml Syringe) 40 mg SUBCUT BEDTIME [facility]S [facility]CLUDE 234 BEDS AT [facility] Last Admin: 02/23/25 21:49 Dose: 40 mg Documented By: KEVON Gabapentin (Gabapentin 300 Mg Capsule) 300 mg PO TID [facility]S [facility]CLUDE 234 BEDS AT [facility] Last Admin: 02/23/25 22:02 Dose: Not Given Documented By: KEVON Non-Admin Reason: NPO Gemfibrozil (Gemfibrozil 600 Mg Tablet) 600 mg PO DAILY [facility]S [facility]CLUDE 234 BEDS AT [facility] Last Admin: 02/23/25 08:47 Dose: 600 mg Documented By: MATTIEOINLuz Hydromorphone HCl (Hydromorphone Hcl 1 Mg/Ml Syringe) 1 mg IVPUSH Q4H PRN; Protocol PRN Reason: Pain, Severe (Pain Scale 7-10) Last Admin: 02/23/25 19:40 Dose: 1 mg Documented By: KEVON Lactated Ringer's (Lr) 1,000 mls @ 100 mls/hr IVCONT .Q10H [facility]S [facility]CLUDE 234 BEDS AT [facility] Last Admin: 02/24/25 00:42 Dose: 100 mls/hr Documented By: KEVON Insulin Glargine (Insulin Glargine,Hum.Rec.Anlog 100 Unit/Ml 10 Ml Vial) 10 unit SUBCUT DAILY [facility]CLUDE 234 BEDS AT [facility] Last Admin: 02/23/25 08:47 Dose: 10 unit Documented By: JENNIFER Magnesium Hydroxide (Milk Of Magnesia 30 Ml Oral.Susp) 30 ml PO DAILY PRN PRN Reason: Constipation Melatonin (Melatonin 3 Mg Tablet) 6 mg PO BEDTIME PRN PRN Reason: Insomnia Multi-Ingred Medicated Throat [place] (Throat [place], Medicated 177 Ml Bottle) 1 spray MUCOUS MEM Q2H PRN PRN Reason: throat pain Last Admin: 02/23/25 21:48 Dose: 1 spray Documented By: KEVON Omeprazole (Omeprazole 20 Mg Capsule.Dr) 20 mg PO DAILY@0630 [facility]S [facility]CLUDE 234 BEDS AT [facility] Last Admin: 02/24/25 05:21 Dose: Not Given Documented By: KEVON Non-Admin Reason: NPO Ondansetron HCl (Ondansetron Hcl 4 Mg/2 Ml Vial) 4 mg IVPUSH Q8H PRN PRN Reason: Nausea and Vomiting Last Admin: 02/23/25 19:40 Dose: 4 mg Documented By: KEVON Oxycodone HCl (Oxycodone Hcl Immed Release 5 Mg Tablet) 5 mg PO Q6H PRN PRN Reason: Pain, Moderate(Pain Scale 4-6) Last Admin: 02/23/25 13:09 Dose: 5 mg Documented By: JENNIFER Sodium Chloride (0.9 % Sodium Chloride Flush 3 Ml Syringe) 3 ml IVFLUSH QSHIFT COUNTS INCLUDE 234 BEDS AT [facility] Last Admin: 02/24/25 01:24 Dose: Not Given Documented By: KEVON Non-Admin Reason: IV Running Labs 02/24/25 06:56 02/24/25 06:56 Labs: Laboratory Results - last 24 hr 02/23/25 02/23/25 02/23/25 09:30 11:17 16:35 MCV 76.6 L MCH 25.0 L MCHC 32.6 RDW 15.5 Plt Count 296 MPV 9.4 Absolute Nucleated RBC 0.000 Nucleated RBC % (auto) 0.0 Anion Gap 13 Estim Creat Clear Calc 147.6 Estimated GFR > 60 POC Glucose 105 119 H Random Glucose 115 Calcium 9.2 Total Bilirubin 1.9 H AST 38 H ALT 45 H Alkaline Phosphatase 83 Total Protein 7.4 Albumin 4.2 Lipase 27 02/23/25 02/24/25 02/24/25 19:26 06:56 07:45 MCV 76.8 L MCH 25.3 L MCHC 33.0 RDW 15.5 Plt Count 309 MPV 9.9 Absolute Nucleated RBC 0.000 Nucleated RBC % (auto) 0.0 Anion Gap 15 Estim Creat Clear Calc 162.2 Estimated GFR > 60 POC Glucose 97 117 H Random Glucose 91 Calcium 9.2 Total Bilirubin AST ALT Alkaline Phosphatase Total Protein Albumin Lipase Assessment and Plan (1) DKA (diabetic ketoacidosis): Status: Resolved (2) Hypertriglyceridemia: Status: Inactive (3) Acute pancreatitis: Status: Resolved Plan Patient is a 29-year-old Welsh-speaking male with a past history significant for diabetes, hypertriglyceridemia, recent ICU admission for pancreatitis secondary to hypertriglyceridemia, history DKA, who presented to the ED with severe epigastric pain after eating dinner and admitted gastritis, pancreatitis Abdominal pain, Normal Lipase but recent CT fropm 02/16/25 with acute interstitial edematous pancreatitis with significant decrease in size of pseudocyst, lipase had been normal. A repeat cT 02/23 showed SBO with transition point in the left lower quadrant, an NGT was inserted, and is feeling much better this morning, may need repeat imaging, sugery following, NGT maybe removed later today. Microcytic anemia, chronic and stable hemoglobin 12., MCV 77.7 normal iron studies, no further w/u indicated T2DM, FBS 114 no longer on metformin sliding scale insulin hypertriglyceridemia triglycerides 216 continue gemfibrozil and statin Full code VTE prophylaxis: Lovenox Patient with acute pancreatitis/gastritis with intractable abdominal pain, requiring admission for at least 2 midnights stay for pain management and gastroenterology consultation. Quality Stroke Does the patient have a stroke diagnosis?: No VTE Prior VTE?: No VTE Risk Level:: Medical - moderate - high VTE Device Contraindication: Treatment Not Indicated VTE Drug Contraindication: N/A - Med Ordered
[2025-02-24] MEDS: Throat Lozenge, Medicated LOZENGE 1 LOZENGE MUCOUS MEM (10:01)
[2025-02-24 11:46] LABS: Glucose, Whole Blood 104 mg/dL (60-115)
--- NOTE | 2025-02-24 15:04 | MHC.CM.PN ---
per rounds pt has a bowel obstruction ?hermila french
[2025-02-24 15:10] VITALS: BP 159/83; PULSE 53; RESP 18; TEMP 36.2; O2SAT 98
[2025-02-24 16:10] LABS: Glucose, Whole Blood 104 mg/dL (60-115)
[2025-02-24 19:51] VITALS: BP 138/78; PULSE 52; RESP 18; TEMP 36.4; O2SAT 98
[2025-02-24 21:02] LABS: Glucose, Whole Blood 80 mg/dL (60-115)
[2025-02-25 04:00] VITALS: BP 147/77; PULSE 53; RESP 18; TEMP 37.1; O2SAT 99
[2025-02-25 07:50] LABS: Glucose, Whole Blood 88 mg/dL (60-115)
[2025-02-25 08:00] VITALS: BP 137/76; PULSE 57; RESP 18; TEMP 36.2; O2SAT 98
--- NOTE | 2025-02-25 08:12 | P.PNGS_ITS ---
Subjective Subjective Date of Service: 02/25/25 <Yael Guzmán PA-C - Last Filed: 02/25/25 08:19> 02/25/25 <Jono Martinez MD - Last Filed: 02/25/25 11:17> Interval history: NGT with 600cc for 24 hr. Had some ice chips yesterday. Reports feeling better this morning and denies any abdominal pain. Feels hungry. Has been ambulating. <Yael Guzmán PA-C - Last Filed: 02/25/25 08:19> Physical Exam 2 Vital Signs: Vital Signs: Last Vital Signs Temp 98.7 F 02/25/25 04:00 Pulse 53 02/25/25 04:00 Resp 18 02/25/25 04:00 BP 147/77 H 02/25/25 04:00 Pulse Ox 99 02/25/25 04:00 O2 Del Method Room Air 02/25/25 04:00 BMI result Body Mass Index 25.3 <Yael Guzmán PA-C - Last Filed: 02/25/25 08:19> Const: General: comfortable, no acute distress and alert <Yael Guzmán PA-C - Last Filed: 02/25/25 08:19> Orientation/consciousness: patient oriented x3 <DENISA Meza Last Filed: 02/25/25 08:19> Resp: Effort & Inspection: normal respiratory effort <Yael Guzmán PA-C - Last Filed: 02/25/25 08:19> GI: Other: soft, nontender, nondistended <Yael Guzmán PA-C - Last Filed: 02/25/25 08:19> Skin: General skin exam: no rashes or lesions noted <DENISA Meza Last Filed: 02/25/25 08:19> Neuro: General: patient oriented x3 and moves all extremities <DENISA Meza Last Filed: 02/25/25 08:19> Objective Data Active Medications Acetaminophen (Acetaminophen 325 Mg Tablet) 975 mg PO Q6H PRN PRN Reason: Pain, Mild 1-3,fever,headache Atorvastatin Calcium (Atorvastatin Calcium 80 Mg Tablet) 80 mg PO BEDTIME [facility] Last Admin: 08/18/25 20:30 Dose: Not Given Documented By: KEVON Non-Admin Reason: NPO Benzocaine (Throat Lozenge, Medicated Lozenge) 1 lozenge MUCOUS MEM Q2H PRN PRN Reason: Sore Throat Last Admin: 02/24/25 10:01 Dose: 1 lozenge Documented By: JENNA Calcium Carbonate (Calcium Carbonate 750 Mg Tab.Chew) 750 mg PO Q4H PRN PRN Reason: Heartburn Enoxaparin Sodium (Enoxaparin Sodium 40 Mg/0.4 Ml Syringe) 40 mg SUBCUT BEDTIME [facility] Last Admin: 02/24/25 20:53 Dose: 40 mg Documented By: KEVON Gabapentin (Gabapentin 300 Mg Capsule) 300 mg PO TID [facility] Last Admin: 02/24/25 20:31 Dose: Not Given Documented By: KEVON Non-Admin Reason: NPO Gemfibrozil (Gemfibrozil 600 Mg Tablet) 600 mg PO DAILY [facility] Last Admin: 02/24/25 10:03 Dose: Not Given Documented By: JENNA Non-Admin Reason: NPO Hydromorphone HCl (Hydromorphone Hcl 1 Mg/Ml Syringe) 1 mg IVPUSH Q4H PRN; Protocol PRN Reason: Pain, Severe (Pain Scale 7-10) Last Admin: 02/25/25 03:41 Dose: 1 mg Documented By: KEVON Insulin Glargine (Insulin Glargine,Hum.Rec.Anlog 100 Unit/Ml 10 Ml Vial) 10 unit SUBCUT DAILY [facility] Last Admin: 02/24/25 10:03 Dose: Not Given Documented By: JENNA Non-Admin Reason: npo. hold per provider Magnesium Hydroxide (Milk Of Magnesia 30 Ml Oral.Susp) 30 ml PO DAILY PRN PRN Reason: Constipation Melatonin (Melatonin 3 Mg Tablet) 6 mg PO BEDTIME PRN PRN Reason: Insomnia Multi-Ingred Medicated Throat [place] (Throat [place], Medicated 177 Ml Bottle) 1 spray MUCOUS MEM Q2H PRN PRN Reason: throat pain Last Admin: 02/23/25 21:48 Dose: 1 spray Documented By: KEVON Omeprazole (Omeprazole 20 Mg Capsule.Dr) 20 mg PO DAILY@0630 [facility] Last Admin: 02/25/25 05:44 Dose: Not Given Documented By: KEVON Non-Admin Reason: NPO Ondansetron HCl (Ondansetron Hcl 4 Mg/2 Ml Vial) 4 mg IVPUSH Q8H PRN PRN Reason: Nausea and Vomiting Last Admin: 02/23/25 19:40 Dose: 4 mg Documented By: KEVON Oxycodone HCl (Oxycodone Hcl Immed Release 5 Mg Tablet) 5 mg PO Q6H PRN PRN Reason: Pain, Moderate(Pain Scale 4-6) Last Admin: 02/23/25 13:09 Dose: 5 mg Documented By: JENNIFER Sodium Chloride (0.9 % Sodium Chloride Flush 3 Ml Syringe) 3 ml IVFLUSH QSHIFT [facility] Last Admin: 02/25/25 01:00 Dose: Not Given Documented By: KEVON Non-Admin Reason: IV Running <Yael Guzmán PA-C - Last Filed: 02/25/25 08:19> Labs CBC & Chem 7: 02/24/25 06:56 02/24/25 06:56 <Yael Guzmán PA-C - Last Filed: 02/25/25 08:19> Labs: Laboratory Results - last 24 hr 02/24/25 02/24/25 02/24/25 06:56 11:41 16:04 MCV 76.8 L MCH 25.3 L MCHC 33.0 RDW 15.5 Plt Count 309 MPV 9.9 Absolute Nucleated RBC 0.000 Nucleated RBC % (auto) 0.0 Anion Gap 15 Estim Creat Clear Calc 162.2 Estimated GFR > 60 POC Glucose 104 104 Random Glucose 91 Calcium 9.2 02/24/25 02/25/25 20:48 07:46 MCV MCH MCHC RDW Plt Count MPV Absolute Nucleated RBC Nucleated RBC % (auto) Anion Gap Estim Creat Clear Calc Estimated GFR POC Glucose 80 88 Random Glucose Calcium <Yael Guzmán PA-C - Last Filed: 02/25/25 08:19> Procedures Date of Service Date of Service: 02/25/25 <Yael Guzmán PA-C - Last Filed: 02/25/25 08:19> 02/25/25 <Jono Martinez MD - Last Filed: 02/25/25 11:17> Progress Note: A&P Assessment and plan (1) Ileus: Status: Acute <Yael Guzmán PA-C - Last Filed: 02/25/25 08:19> Assessment and Plan: Feels well Abdomen is soft and benign Denies pain No nausea or vomiting overnight NG tube output much less Clamp NG tube output and re-evaluate for possible removal Looks well overall Ambulate Seen and examined independently <Jono Martinez MD - Last Filed: 02/25/25 11:17> (2) Pancreatitis: Status: Acute <Yael Guzmán PA-C - Last Filed: 02/25/25 08:19> Assessment and Plan: Likely with segmental ileus secondary to pancreatitis, appears to be resolving. NGT with decreasing output over 24h. Will clamp NGT for 4 hrs and check residual. Unclamp sooner if develops nausea, vomiting, pain. Will remove if remains asymptomatic and residual <100cc. He was encouraged to ambulate to promote GI function, reduce narcotics. Patient comfortable with plan. <Yael Guzmán PA-C - Last Filed: 02/25/25 08:19> Time Spent With Patient Time: Total time managing care of this patient today ____ minutes. <Yael Guzmán PA-C - Last Filed: 02/25/25 08:19> Quality Stroke Does the patient have a stroke diagnosis?: No <Yael Guzmán PA-C - Last Filed: 02/25/25 08:19> VTE Prior VTE?: No <Yael Guzmán PA-C - Last Filed: 02/25/25 08:19> VTE Risk Level:: Medical - moderate - high <Yael Guzmán PA-C - Last Filed: 02/25/25 08:19> VTE Device Contraindication: Treatment Not Indicated <Yael Guzmán PA-C - Last Filed: 02/25/25 08:19> VTE Drug Contraindication: N/A - Med Ordered <Yael Guzmán PA-C - Last Filed: 02/25/25 08:19>
[2025-02-25] MEDS: 0.9 % Sodium Chloride Flush 3 ML SYRINGE IVFLUSH ×2 (08:31→15:29)
--- NOTE | 2025-02-25 11:09 | HO.PM.IMPN ---
Subjective Subjective Date of Service: 02/25/25 Interval History: f/u abdominal pain, sbo on CT 02/23 and has NGT NGT in place minimal output, pain resolved, Physical Exam Vital Signs: Vital Signs: Last Vital Signs Temp 97.2 F 02/25/25 08:00 Pulse 57 02/25/25 08:00 Resp 18 02/25/25 08:00 BP 137/76 02/25/25 08:00 Pulse Ox 98 02/25/25 08:00 O2 Del Method Room Air 02/25/25 08:00 BMI result Body Mass Index 25.3 Const: Other: General: AO X 3, no acute distress Resp: CTA bilateral CVS: S1,S2,RRR GI: +BS, non tender, no distention Skin: No rash Neuro: motor grossly intact Psych: appropriate affect Objective Data Active Medications Acetaminophen (Acetaminophen 325 Mg Tablet) 975 mg PO Q6H PRN PRN Reason: Pain, Mild 1-3,fever,headache Atorvastatin Calcium (Atorvastatin Calcium 80 Mg Tablet) 80 mg PO BEDTIME [facility] Last Admin: 02/24/25 20:30 Dose: Not Given Documented By: KEVON Non-Admin Reason: NPO Benzocaine (Throat Lozenge, Medicated Lozenge) 1 lozenge MUCOUS MEM Q2H PRN PRN Reason: Sore Throat Last Admin: 02/24/25 10:01 Dose: 1 lozenge Calcium Carbonate (Calcium Carbonate 750 Mg Tab.Chew) 750 mg PO Q4H PRN PRN Reason: Heartburn Enoxaparin Sodium (Enoxaparin Sodium 40 Mg/0.4 Ml Syringe) 40 mg SUBCUT BEDTIME [facility] Last Admin: 02/24/25 20:53 Dose: 40 mg Documented By: KEVON Gabapentin (Gabapentin 300 Mg Capsule) 300 mg PO TID [facility] Last Admin: 02/25/25 10:07 Dose: Not Given Documented By: JENNA Non-Admin Reason: NPO Gemfibrozil (Gemfibrozil 600 Mg Tablet) 600 mg PO DAILY [facility] Last Admin: 02/25/25 10:07 Dose: Not Given Documented By: JENNA Non-Admin Reason: NPO Hydromorphone HCl (Hydromorphone Hcl 1 Mg/Ml Syringe) 1 mg IVPUSH Q4H PRN; Protocol PRN Reason: Pain, Severe (Pain Scale 7-10) Last Admin: 02/25/25 08:31 Dose: 1 mg Documented By: JENNA Insulin Glargine (Insulin Glargine,Hum.Rec.Anlog 100 Unit/Ml 10 Ml Vial) 10 unit SUBCUT DAILY [facility] Last Admin: 02/25/25 10:07 Dose: Not Given Documented By: JENNA Non-Admin Reason: NPO Magnesium Hydroxide (Milk Of Magnesia 30 Ml Oral.Susp) 30 ml PO DAILY PRN PRN Reason: Constipation Melatonin (Melatonin 3 Mg Tablet) 6 mg PO BEDTIME PRN PRN Reason: Insomnia Multi-Ingred Medicated Throat [place] (Throat [place], Medicated 177 Ml Bottle) 1 spray MUCOUS MEM Q2H PRN PRN Reason: throat pain Last Admin: 02/23/25 21:48 Dose: 1 spray Documented By: KEVON Omeprazole (Omeprazole 20 Mg Capsule.Dr) 20 mg PO DAILY@0630 [facility] Last Admin: 02/25/25 05:44 Dose: Not Given Documented By: KEVON Non-Admin Reason: NPO Ondansetron HCl (Ondansetron Hcl 4 Mg/2 Ml Vial) 4 mg IVPUSH Q8H PRN PRN Reason: Nausea and Vomiting Last Admin: 02/23/25 19:40 Dose: 4 mg Documented By: KEVON Oxycodone HCl (Oxycodone Hcl Immed Release 5 Mg Tablet) 5 mg PO Q6H PRN PRN Reason: Pain, Moderate(Pain Scale 4-6) Last Admin: 02/23/25 13:09 Dose: 5 mg Documented By: JENNIFER Sodium Chloride (0.9 % Sodium Chloride Flush 3 Ml Syringe) 3 ml IVFLUSH QSHIFT [facility] Last Admin: 02/25/25 08:31 Dose: 3 ml Documented By: JENNA Labs 02/24/25 06:56 02/24/25 06:56 Labs: Laboratory Results - last 24 hr 02/24/25 02/24/25 02/24/25 11:41 16:04 20:48 POC Glucose 104 104 80 02/25/25 07:46 POC Glucose 88 Assessment and Plan (1) DKA (diabetic ketoacidosis): Status: Resolved (2) Hypertriglyceridemia: Status: Inactive (3) Acute pancreatitis: Status: Resolved Plan Patient is a 29-year-old Indonesian-speaking male with a past history significant for diabetes, hypertriglyceridemia, recent ICU admission for pancreatitis secondary to hypertriglyceridemia, history DKA, who presented to the ED with severe epigastric pain after eating dinner and admitted gastritis, pancreatitis Abdominal pain, Normal Lipase but recent CT fropm 02/16/25 with acute interstitial edematous pancreatitis with significant decrease in size of pseudocyst, lipase had been normal. A repeat cT 02/23 showed SBO with transition point in the left lower quadrant, an NGT, clinically bowel obstruction resolved. NGT will be removed today and diet advance Microcytic anemia, chronic and stable hemoglobin 12., MCV 77.7 normal iron studies, no further w/u indicated T2DM, FBS 114 no longer on metformin sliding scale insulin hypertriglyceridemia triglycerides 216 continue gemfibrozil and statin Full code VTE prophylaxis: Lovenox Patient with acute pancreatitis/gastritis with intractable abdominal pain, requiring admission for at least 2 midnights stay for pain management and gastroenterology consultation. Quality Stroke Does the patient have a stroke diagnosis?: No VTE Prior VTE?: No VTE Risk Level:: Medical - moderate - high VTE Device Contraindication: Treatment Not Indicated VTE Drug Contraindication: N/A - Med Ordered
[2025-02-25 11:34] LABS: Glucose, Whole Blood 77 mg/dL (60-115)
[2025-02-25 15:41] VITALS: BP 136/80; PULSE 55; RESP 18; TEMP 36.7; O2SAT 96
--- NOTE | 2025-02-25 15:44 | PC.NURSE ---
NG clamped @ 0800. Checked residual @ 1215. 0cc. Order to remove and start clears. Tolerated removal well. Denies nausea. Tolerated clear liquids.
[2025-02-25 16:23] LABS: Glucose, Whole Blood 110 mg/dL (60-115)
[2025-02-25] MEDS: Lactated Ringers 1,000 ML 125 ML IVCONT (17:54)
[2025-02-25 19:10] VITALS: BP 135/75; PULSE 55; RESP 18; TEMP 36.2; O2SAT 97
[2025-02-25 20:03] LABS: Glucose, Whole Blood 100 mg/dL (60-115)
[2025-02-26] MEDS: Lactated Ringers 1,000 ML 125 ML IVCONT (03:21)
[2025-02-26 03:24] VITALS: BP 142/65; PULSE 55; RESP 18; TEMP 36.4; O2SAT 92
[2025-02-26 06:48] LABS: Hematocrit 38.5 % (42.0-52.0); Hemoglobin 12.8 g/dl (14.0-18.0); Mean Corpuscular HGB Conc 33.2 g/dl (31.0-36.0); Mean Corpuscular Hemoglobin 25.0 pg (27.0-33.0); Mean Corpuscular Volume 75.3 fL (80.0-98.0); NRBC Abs Auto 0.000 X10*3/uL (0.0-0.012); NRBC Pct Auto 0.0 /100WBC (0.0-0.2); PLT CLUMP 1; Platelet Count 232 X10*3/uL (160-400); Red Blood Count 5.11 X10*6/uL (4.60-5.80); White Blood Count 6.0 X10*3/uL (4.8-10.8)
[2025-02-26 07:04] LABS: Anion Gap 17 (12-20); Blood Urea Nitrogen 11 mg/dL (9-16); Calcium 8.9 mg/dL (8.4-10.2); Carbon Dioxide 21 mmol/L (22-29); Chloride 104 mmol/L (96-108); Creatinine Clr Calc Pharmacy 168.5; Estimated Glomerular Filt Rate > 60; Potassium 3.9 mmol/L (3.3-5.1); Sodium 138 mmol/L (135-145)
--- NOTE | 2025-02-26 07:40 | PM.PNGS ---
Subjective Subjective Date of Service: 02/26/25 <Yael Guzmán PA-C - Last Filed: 02/26/25 07:42> 02/26/25 <Jono Martinez MD - Last Filed: 02/26/25 08:03> Interval history: Tolerating clear liquids. Reports some mild pain and heartburn. Passing flatus and had two BMs yesterday. <Yael Guzmán PA-C - Last Filed: 02/26/25 07:42> Physical Exam Vital Signs: Vital Signs: Last Vital Signs Temp 97.5 F 02/26/25 03:24 Pulse 55 02/26/25 03:24 Resp 18 02/26/25 03:24 BP 142/65 H 02/26/25 03:24 Pulse Ox 92 02/26/25 03:24 O2 Del Method Room Air 02/26/25 03:24 BMI result Body Mass Index 25.3 <Yael Guzmán PA-C - Last Filed: 02/26/25 07:42> Const: General: comfortable, no acute distress and alert <Yael Guzmán PA-C - Last Filed: 02/26/25 07:42> Orientation/consciousness: patient oriented x3 <DENISA Meza Last Filed: 02/26/25 07:42> Resp: Effort & Inspection: normal respiratory effort <DENISA Meza Last Filed: 02/26/25 07:42> GI: Other: abdomen nondistended nontender <Yael Guzmán PA-C - Last Filed: 02/26/25 07:42> Palpation (GI): Soft to palpation and no guarding <Yael Guzmán PA-C - Last Filed: 02/26/25 07:42> Percussion: Yes normal to percussion <DENISA Meza Last Filed: 02/26/25 07:42> Skin: General skin exam: no rashes or lesions noted <DENISA Meza Last Filed: 02/26/25 07:42> Neuro: General: patient oriented x3 and moves all extremities <Yael Guzmán PA-C - Last Filed: 02/26/25 07:42> Objective Data Active Medications Acetaminophen (Acetaminophen 325 Mg Tablet) 975 mg PO Q6H PRN PRN Reason: Pain, Mild 1-3,fever,headache Atorvastatin Calcium (Atorvastatin Calcium 80 Mg Tablet) 80 mg PO BEDTIME [facility] Last Admin: 02/25/25 21:21 Dose: 80 mg Documented By: MARGRET Benzocaine (Throat Lozenge, Medicated Lozenge) 1 lozenge MUCOUS MEM Q2H PRN PRN Reason: Sore Throat Last Admin: 02/24/25 10:01 Dose: 1 lozenge Calcium Carbonate (Calcium Carbonate 750 Mg Tab.Chew) 750 mg PO Q4H PRN PRN Reason: Heartburn Docusate Sodium (Docusate Sodium 100 Mg Capsule) 100 mg PO BID [facility] Enoxaparin Sodium (Enoxaparin Sodium 40 Mg/0.4 Ml Syringe) 40 mg SUBCUT BEDTIME [facility] Last Admin: 02/25/25 21:21 Dose: 40 mg Documented By: MARGRET Gabapentin (Gabapentin 300 Mg Capsule) 300 mg PO TID [facility] Last Admin: 02/25/25 21:21 Dose: 300 mg Documented By: MARGRET Gemfibrozil (Gemfibrozil 600 Mg Tablet) 600 mg PO DAILY [facility] Last Admin: 02/25/25 10:07 Dose: Not Given Documented By: JENNA Non-Admin Reason: NPO Hydromorphone HCl (Hydromorphone Hcl 1 Mg/Ml Syringe) 1 mg IVPUSH Q4H PRN; Protocol PRN Reason: Pain, Severe (Pain Scale 7-10) Last Admin: 02/26/25 01:51 Dose: 1 mg Documented By: MARGRET Lactated Ringer's (Lr) 1,000 mls @ 125 mls/hr IVCONT .Q8H [facility] Last Admin: 02/26/25 03:21 Dose: 125 mls/hr Documented By: MARGRET Insulin Glargine (Insulin Glargine,Hum.Rec.Anlog 100 Unit/Ml 10 Ml Vial) 10 unit SUBCUT DAILY [facility] Last Admin: 02/25/25 10:07 Dose: Not Given Documented By: JENNA Non-Admin Reason: NPO Magnesium Hydroxide (Milk Of Magnesia 30 Ml Oral.Susp) 30 ml PO DAILY PRN PRN Reason: Constipation Melatonin (Melatonin 3 Mg Tablet) 6 mg PO BEDTIME PRN PRN Reason: Insomnia Multi-Ingred Medicated Throat [place] (Throat [place], Medicated 177 Ml Bottle) 1 spray MUCOUS MEM Q2H PRN PRN Reason: throat pain Last Admin: 02/23/25 21:48 Dose: 1 spray Documented By: KEVON Omeprazole (Omeprazole 20 Mg Capsule.) 20 mg PO DAILY@0630 [facility] Last Admin: 02/26/25 05:56 Dose: 20 mg Documented By: MARGRET Ondansetron HCl (Ondansetron Hcl 4 Mg/2 Ml Vial) 4 mg IVPUSH Q8H PRN PRN Reason: Nausea and Vomiting Last Admin: 02/26/25 01:51 Dose: 4 mg Documented By: MARGRET Polyethylene Glycol (Polyethylene Glycol 3350 17 Gm Powd.Pack) 17 gm PO DAILY [facility] Sodium Chloride (0.9 % Sodium Chloride Flush 3 Ml Syringe) 3 ml IVFLUSH QSHIFT [facility] Last Admin: 02/26/25 07:19 Dose: Not Given Documented By: UMM Non-Admin Reason: Previously Administered <Yael Guzmán PA-C - Last Filed: 02/26/25 07:42> Labs CBC & Chem 7: 02/26/25 06:20 02/26/25 06:20 <Yael Guzmán PA-C - Last Filed: 02/26/25 07:42> Labs: Laboratory Results - last 24 hr 02/25/25 02/25/25 02/25/25 07:46 11:13 16:09 MCV MCH MCHC RDW Plt Count MPV Absolute Nucleated RBC Nucleated RBC % (auto) Anion Gap Estim Creat Clear Calc Estimated GFR POC Glucose 88 77 110 Random Glucose Calcium 02/25/25 02/26/25 19:55 06:20 MCV 75.3 L MCH 25.0 L MCHC 33.2 RDW 15.1 Plt Count 232 MPV 10.2 Absolute Nucleated RBC 0.000 Nucleated RBC % (auto) 0.0 Anion Gap 17 Estim Creat Clear Calc 168.5 Estimated GFR > 60 POC Glucose 100 Random Glucose 95 Calcium 8.9 <Yael Guzmán PA-C - Last Filed: 02/26/25 07:42> Procedures Date of Service Date of Service: 02/26/25 <Yael Guzmán PA-C - Last Filed: 02/26/25 07:42> 02/26/25 <Jono Martinez MD - Last Filed: 02/26/25 08:03> Progress Note: A&P Assessment and plan (1) Pancreatitis: Status: Acute <Yael Guzmán PA-C - Last Filed: 02/26/25 07:42> Assessment and Plan: Feels well No vomiting since NG tube removed Passing flatus Abdomen is soft and benign and no tenderness Okay to advance diet slowly as tolerated Looks well overall Manage hypertriglyceridemia Seen and examined independently <Jono Martinez MD - Last Filed: 02/26/25 08:03> Assessment and Plan: Tolerating clears and now with good GI function. Abd benign- soft, NT, ND. Will advance to full liquids and then further as tolerated. Home when tolerating solid diet. <Yael Guzmán PA-C - Last Filed: 02/26/25 07:42> Time Spent With Patient Time: Total time managing care of this patient today ____ minutes. <Yael Guzmán PA-C - Last Filed: 02/26/25 07:42> Quality Stroke Does the patient have a stroke diagnosis?: No <Yael Guzámn PA-C - Last Filed: 02/26/25 07:42> VTE Prior VTE?: No <Yael Guzmán PA-C - Last Filed: 02/26/25 07:42> VTE Risk Level:: Medical - moderate - high <Yael Guzmán PA-C - Last Filed: 02/26/25 07:42> VTE Device Contraindication: Treatment Not Indicated <Yael Guzmán PA-C - Last Filed: 02/26/25 07:42> VTE Drug Contraindication: N/A - Med Ordered <Yael Guzmán PA-C - Last Filed: 02/26/25 07:42>
[2025-02-26] MEDS: Insulin Glargine,Hum.rec.anlog 100 UNIT/ML 10 ML VIAL 10 UNIT SUBCUT (07:47)
[2025-02-26 07:55] LABS: Glucose, Whole Blood 105 mg/dL (60-115)
[2025-02-26 08:00] VITALS: BP 111/55; PULSE 63; RESP 18; TEMP 36.1; O2SAT 92
--- NOTE | 2025-02-26 08:01 | PC.NURSE ---
pt refusing IV fluids this AM informed
--- NOTE | 2025-02-26 08:02 | P.PNIM_ITS ---
Subjective Subjective Date of Service: 02/26/25 Interval History: c/o some pain and nausea Physical Exam 2 Vital Signs: Vital Signs: Last Vital Signs Temp 96.9 F 02/26/25 08:00 Pulse 63 02/26/25 08:00 Resp 18 02/26/25 08:00 BP 111/55 L 02/26/25 08:00 Pulse Ox 92 02/26/25 08:00 O2 Del Method Room Air 02/26/25 08:00 BMI result Body Mass Index 25.3 Const: Other: General: AO X 3, no acute distress Resp: CTA bilateral CVS: S1,S2,RRR GI: +BS, non tender, no distention Skin: No rash Neuro: motor grossly intact Psych: appropriate affect Objective Data Active Medications Acetaminophen (Acetaminophen 325 Mg Tablet) 975 mg PO Q6H PRN PRN Reason: Pain, Mild 1-3,fever,headache Atorvastatin Calcium (Atorvastatin Calcium 80 Mg Tablet) 80 mg PO BEDTIME [facility] Last Admin: 02/25/25 21:21 Dose: 80 mg Documented By: MARGRET Benzocaine (Throat Lozenge, Medicated Lozenge) 1 lozenge MUCOUS MEM Q2H PRN PRN Reason: Sore Throat Last Admin: 02/24/25 10:01 Dose: 1 lozenge Calcium Carbonate (Calcium Carbonate 750 Mg Tab.Chew) 750 mg PO Q4H PRN PRN Reason: Heartburn Docusate Sodium (Docusate Sodium 100 Mg Capsule) 100 mg PO BID [facility] Last Admin: 02/26/25 07:46 Dose: 100 mg Documented By: UMM Enoxaparin Sodium (Enoxaparin Sodium 40 Mg/0.4 Ml Syringe) 40 mg SUBCUT BEDTIME [facility] Last Admin: 02/25/25 21:21 Dose: 40 mg Documented By: MARGRET Gabapentin (Gabapentin 300 Mg Capsule) 300 mg PO TID [facility] Last Admin: 02/26/25 07:46 Dose: 300 mg Documented By: UMM Gemfibrozil (Gemfibrozil 600 Mg Tablet) 600 mg PO DAILY [facility] Last Admin: 02/26/25 07:46 Dose: 600 mg Documented By: UMM Hydromorphone HCl (Hydromorphone Hcl 1 Mg/Ml Syringe) 1 mg IVPUSH Q4H PRN; Protocol PRN Reason: Pain, Severe (Pain Scale 7-10) Last Admin: 02/26/25 07:46 Dose: 1 mg Documented By: UMM Lactated Ringer's (Lr) 1,000 mls @ 125 mls/hr IVCONT .Q8H [facility] Last Infusion: 02/26/25 08:01 Dose: 0 mls/hr Documented By: UMM Insulin Glargine (Insulin Glargine,Hum.Rec.Anlog 100 Unit/Ml 10 Ml Vial) 10 unit SUBCUT DAILY [facility] Last Admin: 02/26/25 07:47 Dose: 10 unit Documented By: UMM Magnesium Hydroxide (Milk Of Magnesia 30 Ml Oral.Susp) 30 ml PO DAILY PRN PRN Reason: Constipation Melatonin (Melatonin 3 Mg Tablet) 6 mg PO BEDTIME PRN PRN Reason: Insomnia Multi-Ingred Medicated Throat [place] (Throat [place], Medicated 177 Ml Bottle) 1 spray MUCOUS MEM Q2H PRN PRN Reason: throat pain Last Admin: 02/23/25 21:48 Dose: 1 spray Documented By: KEVON Omeprazole (Omeprazole 20 Mg Capsule.Dr) 20 mg PO DAILY@0630 [facility] Last Admin: 02/26/25 05:56 Dose: 20 mg Documented By: MARGRET Ondansetron HCl (Ondansetron Hcl 4 Mg/2 Ml Vial) 4 mg IVPUSH Q8H PRN PRN Reason: Nausea and Vomiting Last Admin: 02/26/25 01:51 Dose: 4 mg Documented By: MARGRET Polyethylene Glycol (Polyethylene Glycol 3350 17 Gm Powd.Pack) 17 gm PO DAILY [facility] Last Admin: 02/26/25 08:00 Dose: Not Given Documented By: UMM Non-Admin Reason: Patient Refused Sodium Chloride (0.9 % Sodium Chloride Flush 3 Ml Syringe) 3 ml IVFLUSH QSHIFT [facility] Last Admin: 02/26/25 07:19 Dose: Not Given Documented By: UMM Non-Admin Reason: Previously Administered Labs 02/26/25 06:20 02/26/25 06:20 Labs: Laboratory Results - last 24 hr 02/25/25 02/25/25 02/25/25 11:13 16:09 19:55 MCV MCH MCHC RDW Plt Count MPV Absolute Nucleated RBC Nucleated RBC % (auto) Anion Gap Estim Creat Clear Calc Estimated GFR POC Glucose 77 110 100 Random Glucose Calcium 02/26/25 02/26/25 06:20 07:24 MCV 75.3 L MCH 25.0 L MCHC 33.2 RDW 15.1 Plt Count 232 MPV 10.2 Absolute Nucleated RBC 0.000 Nucleated RBC % (auto) 0.0 Anion Gap 17 Estim Creat Clear Calc 168.5 Estimated GFR > 60 POC Glucose 105 Random Glucose 95 Calcium 8.9 Assessment and Plan (1) DKA (diabetic ketoacidosis): Status: Resolved (2) Hypertriglyceridemia: Status: Inactive (3) Acute pancreatitis: Status: Resolved Plan Patient is a 29-year-old [place]ian-speaking male with a past history significant for diabetes, hypertriglyceridemia, recent ICU admission for pancreatitis secondary to hypertriglyceridemia, history DKA, who presented to the ED with severe epigastric pain after eating dinner and admitted gastritis, pancreatitis Abdominal pain, Normal Lipase but recent CT fropm 02/16/25 with acute interstitial edematous pancreatitis with significant decrease in size of pseudocyst, lipase had been normal. A repeat cT 02/23 showed SBO with transition point in the left lower quadrant, an NGT was placed, clinically bowel obstruction resolved. NGT removed an diet advanced presently Full liquid Microcytic anemia, chronic and stable hemoglobin 12., MCV 77.7 normal iron studies, no further w/u indicated T2DM, FBS 114 no longer on metformin sliding scale insulin hypertriglyceridemia triglycerides 216 continue gemfibrozil and statin Full code VTE prophylaxis: Lovenox Possibly home later today if tolerates Quality Stroke Does the patient have a stroke diagnosis?: No VTE Prior VTE?: No VTE Risk Level:: Medical - moderate - high VTE Device Contraindication: Treatment Not Indicated VTE Drug Contraindication: N/A - Med Ordered
[2025-02-26 09:24] VITALS: BP 109/52; PULSE 96; RESP 16; TEMP 36; O2SAT 99
[2025-02-26 11:23] LABS: Glucose, Whole Blood 94 mg/dL (60-115)
--- NOTE | 2025-02-26 12:50 | MHC.CM.PN ---
per rounds pt possible dc todaydc plan remains home no services
[2025-02-26 15:48] VITALS: BP 134/66; PULSE 51; RESP 17; TEMP 36.2; O2SAT 95
[2025-02-26 16:36] LABS: Glucose, Whole Blood 85 mg/dL (60-115)
[2025-02-26 20:00] VITALS: BP 132/69; PULSE 55; RESP 18; TEMP 36.1; O2SAT 96
[2025-02-26 20:45] LABS: Glucose, Whole Blood 82 mg/dL (60-115)
[2025-02-26] MEDS: 0.9 % Sodium Chloride Flush 3 ML SYRINGE IVFLUSH (22:03)
[2025-02-27 03:02] VITALS: BP 133/66; PULSE 50; RESP 18; TEMP 36.8; O2SAT 95
--- NOTE | 2025-02-27 07:43 | PM.PNGS ---
Subjective Subjective Date of Service: 02/27/25 <Yael Guzmán PA-C - Last Filed: 02/27/25 07:44> 02/27/25 <Jono Martinez MD - Last Filed: 02/27/25 08:44> Interval history: Had some pain with full liquids but family at bedside this has been baseline for him. Passing flatus and had two liquid BMs yesterday. <Yael Guzmán PA-C - Last Filed: 02/27/25 07:44> Physical Exam Vital Signs: Vital Signs: Last Vital Signs Temp 98.3 F 02/27/25 03:02 Pulse 50 02/27/25 03:02 Resp 18 02/27/25 03:02 BP 133/66 02/27/25 03:02 Pulse Ox 95 02/27/25 03:02 O2 Del Method Room Air 02/27/25 03:02 O2 Flow Rate 2 02/26/25 09:24 BMI result Body Mass Index 25.3 <Yael Guzmán PA-C - Last Filed: 02/27/25 07:44> Const: Orientation/consciousness: patient oriented x3 <Yael Guzmán PA-C - Last Filed: 02/27/25 07:44> Resp: Effort & Inspection: normal respiratory effort <DENISA Meza Last Filed: 02/27/25 07:44> GI: Other: mild epigastric tenderness <Yael Guzmán PA-C - Last Filed: 02/27/25 07:44> Inspection: No distended <Yael Guzmán PA-C - Last Filed: 02/27/25 07:44> Palpation (GI): Soft to palpation and no guarding <Yael Guzmán PA-C - Last Filed: 02/27/25 07:44> Skin: General skin exam: no rashes or lesions noted <DENISA Meza Last Filed: 02/27/25 07:44> Neuro: General: patient oriented x3 and moves all extremities <DENISA Meza Last Filed: 02/27/25 07:44> Objective Data Active Medications Acetaminophen (Acetaminophen 325 Mg Tablet) 975 mg PO Q6H PRN PRN Reason: Pain, Mild 1-3,fever,headache Atorvastatin Calcium (Atorvastatin Calcium 80 Mg Tablet) 80 mg PO BEDTIME [facility] Last Admin: 02/26/25 20:55 Dose: 80 mg Documented By: MARGRTE Benzocaine (Throat Lozenge, Medicated Lozenge) 1 lozenge MUCOUS MEM Q2H PRN PRN Reason: Sore Throat Last Admin: 02/24/25 10:01 Dose: 1 lozenge Calcium Carbonate (Calcium Carbonate 750 Mg Tab.Chew) 750 mg PO Q4H PRN PRN Reason: Heartburn Docusate Sodium (Docusate Sodium 100 Mg Capsule) 100 mg PO BID [facility] Last Admin: 02/26/25 20:55 Dose: 100 mg Documented By: MARGRET Enoxaparin Sodium (Enoxaparin Sodium 40 Mg/0.4 Ml Syringe) 40 mg SUBCUT BEDTIME [facility] Last Admin: 02/26/25 20:55 Dose: 40 mg Documented By: MARGRET Gabapentin (Gabapentin 300 Mg Capsule) 300 mg PO TID [facility] Last Admin: 02/26/25 20:55 Dose: 300 mg Documented By: MARGRET Gemfibrozil (Gemfibrozil 600 Mg Tablet) 600 mg PO DAILY [facility] Last Admin: 02/26/25 07:46 Dose: 600 mg Documented By: CASSFALorraine Hydromorphone HCl (Hydromorphone Hcl 1 Mg/Ml Syringe) 1 mg IVPUSH Q4H PRN; Protocol PRN Reason: Pain, Severe (Pain Scale 7-10) Last Admin: 02/27/25 00:31 Dose: 1 mg Documented By: MARGRET Insulin Glargine (Insulin Glargine,Hum.Rec.Anlog 100 Unit/Ml 10 Ml Vial) 10 unit SUBCUT DAILY [facility] Last Admin: 02/26/25 07:47 Dose: 10 unit Documented By: UMM Magnesium Hydroxide (Milk Of Magnesia 30 Ml Oral.Susp) 30 ml PO DAILY PRN PRN Reason: Constipation Melatonin (Melatonin 3 Mg Tablet) 6 mg PO BEDTIME PRN PRN Reason: Insomnia Multi-Ingred Medicated Throat [place] (Throat [place], Medicated 177 Ml Bottle) 1 spray MUCOUS MEM Q2H PRN PRN Reason: throat pain Last Admin: 02/23/25 21:48 Dose: 1 spray Documented By: KEVON Omeprazole (Omeprazole 20 Mg Capsule.) 20 mg PO DAILY@0630 [facility] Last Admin: 02/27/25 05:49 Dose: 20 mg Documented By: MARGRET Ondansetron HCl (Ondansetron Hcl 4 Mg/2 Ml Vial) 4 mg IVPUSH Q8H PRN PRN Reason: Nausea and Vomiting Last Admin: 02/26/25 22:00 Dose: 4 mg Documented By: MARGRET Oxycodone HCl (Oxycodone Hcl Immed Release 5 Mg Tablet) 5 mg PO Q4H PRN PRN Reason: Pain, Moderate(Pain Scale 4-6) Polyethylene Glycol (Polyethylene Glycol 3350 17 Gm Powd.Pack) 17 gm PO DAILY [facility] Last Admin: 02/26/25 08:00 Dose: Not Given Documented By: UMM Non-Admin Reason: Patient Refused Sodium Chloride (0.9 % Sodium Chloride Flush 3 Ml Syringe) 3 ml IVFLUSH QSHIFT [facility] Last Admin: 02/26/25 22:03 Dose: 3 ml Documented By: MARGRET <Yael Guzmán PA-C - Last Filed: 02/27/25 07:44> Labs CBC & Chem 7: 02/26/25 06:20 02/26/25 06:20 <Yael Guzmán PA-C - Last Filed: 02/27/25 07:44> Labs: Laboratory Results - last 24 hr 02/26/25 02/26/25 02/26/25 07:24 11:02 16:23 POC Glucose 105 94 85 02/26/25 20:42 POC Glucose 82 <Yael Guzmán PA-C - Last Filed: 02/27/25 07:44> Procedures Date of Service Date of Service: 02/27/25 <aYel Guzmán PA-C - Last Filed: 02/27/25 07:44> 02/27/25 <Jono Martinez MD - Last Filed: 02/27/25 08:44> Progress Note: A&P Assessment and plan (1) Pancreatitis: Status: Acute <Yael Guzmán PA-C - Last Filed: 02/27/25 07:44> Assessment and Plan: Looks well Describes some epigastric pain No nausea or vomiting Okay to advance diet slowly as tolerated Abdomen is soft and benign Seen and examined independently Manage hypertriglyceridemia <Jono Martinez MD - Last Filed: 02/27/25 08:44> Assessment and Plan: Can advance to solids. Home if tolerating with f/u with GI outpatient. Patient and family at bedside comfortable with plan. <Yael Guzmán PA-C - Last Filed: 02/27/25 07:44> Time Spent With Patient Time: Total time managing care of this patient today ____ minutes. <Yael Guzmán PA-C - Last Filed: 02/27/25 07:44> Quality Stroke Does the patient have a stroke diagnosis?: No <Yael Guzmán PA-C - Last Filed: 02/27/25 07:44> VTE Prior VTE?: No <Yael Guzmán PA-C - Last Filed: 02/27/25 07:44> VTE Risk Level:: Medical - moderate - high <Yael Guzmán PA-C - Last Filed: 02/27/25 07:44> VTE Device Contraindication: Treatment Not Indicated <Yael Guzmán PA-C - Last Filed: 02/27/25 07:44> VTE Drug Contraindication: N/A - Med Ordered <Yael Guzmán PA-C - Last Filed: 02/27/25 07:44>
[2025-02-27 08:00] VITALS: BP 132/65; PULSE 53; RESP 17; TEMP 36.1; O2SAT 95
[2025-02-27 08:21] LABS: Glucose, Whole Blood 112 mg/dL (60-115)
[2025-02-27] MEDS: Insulin Glargine,Hum.rec.anlog 100 UNIT/ML 10 ML VIAL 10 UNIT SUBCUT (08:28)
[2025-02-27] MEDS: oxyCODONE HCl Immed Release 5 MG TABLET PO (11:04)
[2025-02-27 11:40] LABS: Glucose, Whole Blood 101 mg/dL (60-115)
[2025-02-27] MEDS: 0.9 % Sodium Chloride Flush 3 ML SYRINGE IVFLUSH ×2 (15:08→20:42)
[2025-02-27 16:00] VITALS: BP 117/55; PULSE 56; RESP 12; TEMP 36.1; O2SAT 97
[2025-02-27 16:22] LABS: Glucose, Whole Blood 88 mg/dL (60-115)
--- NOTE | 2025-02-27 16:46 | HO.PM.IMPN ---
Subjective Subjective Date of Service: 02/27/25 Interval History: abd pain /acute pancreatitis Review of Systems abd pain slightly improving ,still not able take significant po. Review of Systems: Yes all other systems are reviewed and are negative Physical Exam Exam: Exam: General: AO X 3, no acute distress Resp: CTA bilateral CVS: S1,S2,RRR GI: +BS, non tender, no distention Skin: No rash Neuro: motor grossly intact Psych: appropriate affect Vital Signs: Vital Signs: Last Vital Signs Temp 97 F 02/27/25 16:00 Pulse 56 02/27/25 16:00 Resp 12 02/27/25 16:00 BP 117/55 L 02/27/25 16:00 Pulse Ox 97 02/27/25 16:00 O2 Del Method Room Air 02/27/25 16:00 O2 Flow Rate 2 02/26/25 09:24 BMI result Body Mass Index 25.3 Objective Data Active Medications Acetaminophen (Acetaminophen 325 Mg Tablet) 975 mg PO Q6H PRN PRN Reason: Pain, Mild 1-3,fever,headache Atorvastatin Calcium (Atorvastatin Calcium 80 Mg Tablet) 80 mg PO BEDTIME [facility] Last Admin: 02/26/25 20:55 Dose: 80 mg Documented By: MARGRET Benzocaine (Throat Lozenge, Medicated Lozenge) 1 lozenge MUCOUS MEM Q2H PRN PRN Reason: Sore Throat Last Admin: 02/24/25 10:01 Dose: 1 lozenge Calcium Carbonate (Calcium Carbonate 750 Mg Tab.Chew) 750 mg PO Q4H PRN PRN Reason: Heartburn Docusate Sodium (Docusate Sodium 100 Mg Capsule) 100 mg PO BID [facility] Last Admin: 02/27/25 08:28 Dose: 100 mg Documented By: MIKAELA Enoxaparin Sodium (Enoxaparin Sodium 40 Mg/0.4 Ml Syringe) 40 mg SUBCUT BEDTIME [facility] Last Admin: 02/26/25 20:55 Dose: 40 mg Documented By: MARGRET Gabapentin (Gabapentin 300 Mg Capsule) 300 mg PO TID [facility] Last Admin: 02/27/25 15:07 Dose: 300 mg Documented By: MIKAELA Gemfibrozil (Gemfibrozil 600 Mg Tablet) 600 mg PO DAILY [facility] Last Admin: 02/27/25 08:28 Dose: 600 mg Documented By: MIKAELA Hydromorphone HCl (Hydromorphone Hcl 1 Mg/Ml Syringe) 1 mg IVPUSH Q4H PRN; Protocol PRN Reason: Pain, Severe (Pain Scale 7-10) Last Admin: 02/27/25 16:37 Dose: 1 mg Documented By: MIKAELA Insulin Glargine (Insulin Glargine,Hum.Rec.Anlog 100 Unit/Ml 10 Ml Vial) 10 unit SUBCUT DAILY [facility] Last Admin: 02/27/25 08:28 Dose: 10 unit Documented By: MIKAELA Magnesium Hydroxide (Milk Of Magnesia 30 Ml Oral.Susp) 30 ml PO DAILY PRN PRN Reason: Constipation Melatonin (Melatonin 3 Mg Tablet) 6 mg PO BEDTIME PRN PRN Reason: Insomnia Multi-Ingred Medicated Throat [place] (Throat [place], Medicated 177 Ml Bottle) 1 spray MUCOUS MEM Q2H PRN PRN Reason: throat pain Last Admin: 02/23/25 21:48 Dose: 1 spray Documented By: KEVON Omeprazole (Omeprazole 20 Mg Capsule.Dr) 20 mg PO DAILY@0630 [facility] Last Admin: 02/27/25 05:49 Dose: 20 mg Documented By: MARGRET Ondansetron HCl (Ondansetron Hcl 4 Mg/2 Ml Vial) 4 mg IVPUSH Q8H PRN PRN Reason: Nausea and Vomiting Last Admin: 02/27/25 11:09 Dose: 4 mg Documented By: MIKAELA Oxycodone HCl (Oxycodone Hcl Immed Release 5 Mg Tablet) 5 mg PO Q4H PRN PRN Reason: Pain, Moderate(Pain Scale 4-6) Last Admin: 02/27/25 11:04 Dose: 5 mg Documented By: MIKAELA Polyethylene Glycol (Polyethylene Glycol 3350 17 Gm Powd.Pack) 17 gm PO DAILY [facility] Last Admin: 02/27/25 08:28 Dose: 17 gm Documented By: MIKAELA Sodium Chloride (0.9 % Sodium Chloride Flush 3 Ml Syringe) 3 ml IVFLUSH QSHIFT [facility] Last Admin: 02/27/25 15:08 Dose: 3 ml Documented By: MIKAELA Labs 02/26/25 06:20 02/26/25 06:20 Labs: Laboratory Results - last 24 hr 02/26/25 02/27/25 02/27/25 20:42 08:08 11:36 POC Glucose 82 112 101 02/27/25 15:57 POC Glucose 88 Assessment and Plan (1) DKA (diabetic ketoacidosis): Status: Resolved (2) Hypertriglyceridemia: Status: Inactive (3) Acute pancreatitis: Status: Resolved Plan 29-year-old Nepali-speaking male with a past history significant for diabetes, hypertriglyceridemia, recent ICU admission for pancreatitis secondary to hypertriglyceridemia, history DKA, who presented to the ED with severe epigastric pain after eating dinner and admitted gastritis, pancreatitis Abdominal pain, Normal Lipase but recent CT fropm 02/16/25 with acute interstitial edematous pancreatitis with significant decrease in size of pseudocyst, lipase had been normal. A repeat cT 02/23 showed SBO with transition point in the left lower quadrant, an NGT was placed, clinically bowel obstruction resolved. NGT removed an diet advanced presently Full liquid( not tolerating yet) Microcytic anemia, chronic and stable hemoglobin 12., MCV 77.7 normal iron studies, no further w/u indicated T2DM, FBS 114 no longer on metformin sliding scale insulin hypertriglyceridemia triglycerides 216 continue gemfibrozil and statin Full code VTE prophylaxis: Lovenox ongoing need for stay:acute interstitial edematous pancreatitis with significant decrease in size of pseudocyst- low po intake , pain managment, surgery following. Quality Stroke Does the patient have a stroke diagnosis?: No VTE Prior VTE?: No VTE Risk Level:: Medical - moderate - high VTE Device Contraindication: Treatment Not Indicated VTE Drug Contraindication: N/A - Med Ordered
[2025-02-27 20:00] VITALS: BP 111/58; PULSE 55; RESP 14; TEMP 36.8; O2SAT 96
[2025-02-27 20:03] LABS: Glucose, Whole Blood 99 mg/dL (60-115)
[2025-02-28 03:18] VITALS: BP 118/75; PULSE 52; RESP 20; TEMP 36.7; O2SAT 98
[2025-02-28] MEDS: Insulin Glargine,Hum.rec.anlog 100 UNIT/ML 10 ML VIAL 10 UNIT SUBCUT (07:48)
[2025-02-28] MEDS: 0.9 % Sodium Chloride Flush 3 ML SYRINGE IVFLUSH ×3 (07:51→19:45)
[2025-02-28 07:53] LABS: Glucose, Whole Blood 87 mg/dL (60-115)
[2025-02-28 08:00] VITALS: BP 106/58; PULSE 55; RESP 14; TEMP 36.1; O2SAT 96
--- NOTE | 2025-02-28 10:03 | P.PNGS_ITS ---
Subjective Subjective Date of Service: 02/28/25 Interval history: Tolerating diet No vomiting Has flatus and BMs Has had some mild epigastric pain Physical Exam 2 Vital Signs: Vital Signs: Last Vital Signs Temp 96.9 F 02/28/25 08:00 Pulse 55 02/28/25 08:00 Resp 14 02/28/25 08:00 BP 106/58 L 02/28/25 08:00 Pulse Ox 96 02/28/25 08:00 O2 Del Method Room Air 02/28/25 08:00 O2 Flow Rate 2 02/26/25 09:24 BMI result Body Mass Index 25.3 Const: General: comfortable and no acute distress Resp: Effort & Inspection: normal respiratory effort Cardio: Rate: regular rate GI: Palpation (GI): Soft to palpation, not firm, nontender and no guarding Objective Data Active Medications Acetaminophen (Acetaminophen 325 Mg Tablet) 975 mg PO Q6H PRN PRN Reason: Pain, Mild 1-3,fever,headache Atorvastatin Calcium (Atorvastatin Calcium 80 Mg Tablet) 80 mg PO BEDTIME [facility] Last Admin: 02/27/25 20:39 Dose: 80 mg Documented By: HARITHA Benzocaine (Throat Lozenge, Medicated Lozenge) 1 lozenge MUCOUS MEM Q2H PRN PRN Reason: Sore Throat Last Admin: 02/24/25 10:01 Dose: 1 lozenge Calcium Carbonate (Calcium Carbonate 750 Mg Tab.Chew) 750 mg PO Q4H PRN PRN Reason: Heartburn Docusate Sodium (Docusate Sodium 100 Mg Capsule) 100 mg PO BID [facility] Last Admin: 02/28/25 07:48 Dose: 100 mg Documented By: BRIAN Enoxaparin Sodium (Enoxaparin Sodium 40 Mg/0.4 Ml Syringe) 40 mg SUBCUT BEDTIME [facility] Last Admin: 02/27/25 20:39 Dose: 40 mg Documented By: HARITHA Gabapentin (Gabapentin 300 Mg Capsule) 300 mg PO TID [facility] Last Admin: 02/28/25 07:48 Dose: 300 mg Documented By: BRIAN Gemfibrozil (Gemfibrozil 600 Mg Tablet) 600 mg PO DAILY [facility] Last Admin: 02/28/25 07:48 Dose: 600 mg Documented By: BRIAN Hydromorphone HCl (Hydromorphone Hcl 1 Mg/Ml Syringe) 1 mg IVPUSH Q4H PRN; Protocol PRN Reason: Pain, Severe (Pain Scale 7-10) Last Admin: 02/28/25 08:17 Dose: 1 mg Documented By: BRIAN Insulin Glargine (Insulin Glargine,Hum.Rec.Anlog 100 Unit/Ml 10 Ml Vial) 10 unit SUBCUT DAILY [facility] Last Admin: 02/28/25 07:48 Dose: 10 unit Documented By: BRIAN Magnesium Hydroxide (Milk Of Magnesia 30 Ml Oral.Susp) 30 ml PO DAILY PRN PRN Reason: Constipation Melatonin (Melatonin 3 Mg Tablet) 6 mg PO BEDTIME PRN PRN Reason: Insomnia Last Admin: 02/27/25 20:39 Dose: 6 mg Documented By: HARITHA Multi-Ingred Medicated Throat [place] (Throat [place], Medicated 177 Ml Bottle) 1 spray MUCOUS MEM Q2H PRN PRN Reason: throat pain Last Admin: 02/23/25 21:48 Dose: 1 spray Documented By: KEVON Omeprazole (Omeprazole 20 Mg Capsule.Dr) 20 mg PO DAILY@0630 [facility] Last Admin: 02/28/25 06:45 Dose: 20 mg Documented By: ALBA Ondansetron HCl (Ondansetron Hcl 4 Mg/2 Ml Vial) 4 mg IVPUSH Q8H PRN PRN Reason: Nausea and Vomiting Last Admin: 02/28/25 08:20 Dose: 4 mg Documented By: BRIAN Oxycodone HCl (Oxycodone Hcl Immed Release 5 Mg Tablet) 5 mg PO Q4H PRN PRN Reason: Pain, Moderate(Pain Scale 4-6) Last Admin: 02/27/25 11:04 Dose: 5 mg Documented By: MIKAELA Polyethylene Glycol (Polyethylene Glycol 3350 17 Gm Powd.Pack) 17 gm PO DAILY [facility] Last Admin: 02/28/25 07:48 Dose: 17 gm Documented By: BRIAN Sodium Chloride (0.9 % Sodium Chloride Flush 3 Ml Syringe) 3 ml IVFLUSH QSHIFT [facility] Last Admin: 02/28/25 07:51 Dose: 3 ml Documented By: BRIAN Labs 02/26/25 06:20 02/26/25 06:20 Labs: Laboratory Results - last 24 hr 02/27/25 02/27/25 02/27/25 11:36 15:57 19:55 POC Glucose 101 88 99 02/28/25 07:15 POC Glucose 87 Procedures Date of Service Date of Service: 02/28/25 Progress Note: A&P Assessment and plan (1) Ileus: Status: Acute Assessment and Plan: Likely from acute pancreatitis Symptoms have resolved Tolerating diet well He does have hypertriglyceridemia causing recurrent pancreatitis Exam otherwise benign Okay for discharge from surgical standpoint Time Spent With Patient Time: Total time managing care of this patient today ____ minutes. Quality Stroke Does the patient have a stroke diagnosis?: No VTE Prior VTE?: No VTE Risk Level:: Medical - moderate - high VTE Device Contraindication: Treatment Not Indicated VTE Drug Contraindication: N/A - Med Ordered
[2025-02-28 12:09] LABS: Glucose, Whole Blood 98 mg/dL (60-115)
[2025-02-28 15:27] VITALS: BP 131/73; PULSE 54; RESP 18; TEMP 36.3; O2SAT 96
--- NOTE | 2025-02-28 15:38 | MHC.CM.PN ---
EMR REVIEWED AND PER MD ROUNDS, PT IS NOT MEDICALLY CLEARED FOR DC HOME,(PAIN MANAGEMENT) CM WILL CONTINUE TO FOLLOW FOR ANY CHANGE TO DC PLAN/NEEDS.
--- NOTE | 2025-02-28 15:40 | P.PNIM_ITS ---
Subjective Subjective Date of Service: 02/28/25 Interval History: abd pain Review of Systems abd pain somewhat improving po intake slowly improving Review of Systems: Yes all other systems are reviewed and are negative Physical Exam 2 Exam: Exam: General: AO X 3, no acute distress Resp: CTA bilateral CVS: S1,S2,RRR GI: +BS, non tender, no distention Skin: No rash Neuro: motor grossly intact Psych: appropriate affect Vital Signs: Vital Signs: Last Vital Signs Temp 97.3 F 02/28/25 15:27 Pulse 54 02/28/25 15:27 Resp 18 02/28/25 15:27 BP 131/73 02/28/25 15:27 Pulse Ox 96 02/28/25 15:27 O2 Del Method Room Air 02/28/25 15:27 O2 Flow Rate 2 02/26/25 09:24 BMI result Body Mass Index 25.3 Objective Data Active Medications Acetaminophen (Acetaminophen 325 Mg Tablet) 975 mg PO Q6H PRN PRN Reason: Pain, Mild 1-3,fever,headache Atorvastatin Calcium (Atorvastatin Calcium 80 Mg Tablet) 80 mg PO BEDTIME REPLACED BY [facility] Last Admin: 02/27/25 20:39 Dose: 80 mg Documented By: HARITHA Benzocaine (Throat Lozenge, Medicated Lozenge) 1 lozenge MUCOUS MEM Q2H PRN PRN Reason: Sore Throat Last Admin: 02/24/25 10:01 Dose: 1 lozenge Calcium Carbonate (Calcium Carbonate 750 Mg Tab.Chew) 750 mg PO Q4H PRN PRN Reason: Heartburn Docusate Sodium (Docusate Sodium 100 Mg Capsule) 100 mg PO BID [facility] Last Admin: 02/28/25 07:48 Dose: 100 mg Documented By: BRIAN Enoxaparin Sodium (Enoxaparin Sodium 40 Mg/0.4 Ml Syringe) 40 mg SUBCUT BEDTIME [facility]PLACED [facility] Last Admin: 02/27/25 20:39 Dose: 40 mg Documented By: HARITHA Gabapentin (Gabapentin 300 Mg Capsule) 300 mg PO TID [facility]PL[facility] BY [facility] Last Admin: 02/28/25 14:55 Dose: 300 mg Documented By: BRIAN Gemfibrozil (Gemfibrozil 600 Mg Tablet) 600 mg PO DAILY [facility]PL[facility] Last Admin: 02/28/25 07:48 Dose: 600 mg Documented By: BRIAN Insulin Glargine (Insulin Glargine,Hum.Rec.Anlog 100 Unit/Ml 10 Ml Vial) 10 unit SUBCUT DAILY [facility] Last Admin: 02/28/25 07:48 Dose: 10 unit Documented By: BRIAN Magnesium Hydroxide (Milk Of Magnesia 30 Ml Oral.Susp) 30 ml PO DAILY PRN PRN Reason: Constipation Melatonin (Melatonin 3 Mg Tablet) 6 mg PO BEDTIME PRN PRN Reason: Insomnia Last Admin: 02/27/25 20:39 Dose: 6 mg Documented By: HARITHA Multi-Ingred Medicated Throat [place] (Throat [place], Medicated 177 Ml Bottle) 1 spray MUCOUS MEM Q2H PRN PRN Reason: throat pain Last Admin: 02/23/25 21:48 Dose: 1 spray Documented By: KEVON Omeprazole (Omeprazole 20 Mg Capsule.Dr) 20 mg PO DAILY@0630 [facility] Last Admin: 02/28/25 06:45 Dose: 20 mg Documented By: ALBA Ondansetron HCl (Ondansetron Hcl 4 Mg/2 Ml Vial) 4 mg IVPUSH Q8H PRN PRN Reason: Nausea and Vomiting Last Admin: 02/28/25 08:20 Dose: 4 mg Documented By: BRIAN Oxycodone HCl (Oxycodone Hcl Immed Release 5 Mg Tablet) 5 mg PO Q4H PRN PRN Reason: Pain, Moderate(Pain Scale 4-6) Last Admin: 02/27/25 11:04 Dose: 5 mg Documented By: MIKAELA Polyethylene Glycol (Polyethylene Glycol 3350 17 Gm Powd.Pack) 17 gm PO DAILY [facility]PL[facility]ED [facility] Last Admin: 02/28/25 07:48 Dose: 17 gm Documented By: BRIAN Sodium Chloride (0.9 % Sodium Chloride Flush 3 Ml Syringe) 3 ml IVFLUSH QSHIFT REPLACED BY [facility] Last Admin: 02/28/25 13:05 Dose: 3 ml Documented By: BRIAN Labs 02/26/25 06:20 02/26/25 06:20 Labs: Laboratory Results - last 24 hr 02/27/25 02/27/25 02/28/25 15:57 19:55 07:15 POC Glucose 88 99 87 02/28/25 12:05 POC Glucose 98 Assessment and Plan (1) DKA (diabetic ketoacidosis): Status: Resolved (2) Hypertriglyceridemia: Status: Inactive (3) Acute pancreatitis: Status: Resolved Plan 29-year-old Nepali-speaking male with a past history significant for diabetes, hypertriglyceridemia, recent ICU admission for pancreatitis secondary to hypertriglyceridemia, history DKA, who presented to the ED with severe epigastric pain after eating dinner and admitted gastritis, pancreatitis Abdominal pain, Normal Lipase but recent CT fropm 02/16/25 with acute interstitial edematous pancreatitis with significant decrease in size of pseudocyst, lipase had been normal. A repeat cT 02/23 showed SBO with transition point in the left lower quadrant, an NGT was placed, clinically bowel obstruction resolved. NGT removed an diet advanced presently Full liquid( not tolerating yet) Microcytic anemia, chronic and stable hemoglobin 12., MCV 77.7 normal iron studies, no further w/u indicated T2DM, FBS 114 no longer on metformin sliding scale insulin hypertriglyceridemia triglycerides 216 continue gemfibrozil and statin Full code VTE prophylaxis: Lovenox ongoing need for stay:acute interstitial edematous pancreatitis with significant decrease in size of pseudocyst- low po intake , pain managment, surgery following. Quality Stroke Does the patient have a stroke diagnosis?: No VTE Prior VTE?: No VTE Risk Level:: Medical - moderate - high VTE Device Contraindication: Treatment Not Indicated VTE Drug Contraindication: N/A - Med Ordered
[2025-02-28 15:58] LABS: Glucose, Whole Blood 91 mg/dL (60-115)
--- NOTE | 2025-02-28 18:57 | PC.NURSE ---
no c/o pain after dinner. Not asking for IV Pain meds.
[2025-02-28 19:06] VITALS: BP 142/95; PULSE 56; RESP 18; TEMP 36.4; O2SAT 98
[2025-02-28 19:55] LABS: Glucose, Whole Blood 89 mg/dL (60-115)
[2025-02-28] MEDS: oxyCODONE HCl Immed Release 5 MG TABLET PO (23:09)
[2025-03-01 03:40] VITALS: BP 121/59; PULSE 52; RESP 18; TEMP 35.8; O2SAT 98
[2025-03-01 05:30] VITALS: TEMP 36.9
[2025-03-01 07:23] LABS: Glucose, Whole Blood 81 mg/dL (60-115)
[2025-03-01 07:29] VITALS: BP 122/58; PULSE 51; RESP 16; TEMP 36.4; O2SAT 96
[2025-03-01] MEDS: Insulin Glargine,Hum.rec.anlog 100 UNIT/ML 10 ML VIAL 10 UNIT SUBCUT (09:45)
[2025-03-01] MEDS: 0.9 % Sodium Chloride Flush 3 ML SYRINGE IVFLUSH (09:45)
[2025-03-01 09:50] VITALS: RESP 14
[2025-03-01 11:15] LABS: Glucose, Whole Blood 97 mg/dL (60-115)
--- NOTE | 2025-03-01 11:15 | P.DS_ITS ---
DS: Providers Provider Date of Service: 03/01/25 Date of admission: 02/21/25 01:57 Date of discharge: 03/01/25 Primary care physician: Radha Bravo MD Consults: 02/21/25 02:29 Consult to Gastroenterology Routine Consulting Provider: Ashia Ortiz Reason for consultation: intractable abd pain, resolving pancreatitis, ?gastritis Has provider been notified: No 02/23/25 17:48 Consult to General Surgery Stat Consulting Provider: [facility] General Surgeons Reason for consultation: High grade SBO Has provider been notified: Yes Attending physician on discharge: Edis Lua Discharging clinician: Edis Lua DS: Diagnosis Discharge Diagnosis (1) DKA (diabetic ketoacidosis): Status: Resolved (2) Hypertriglyceridemia: Status: Inactive (3) Acute pancreatitis: Status: Resolved DS: Summary Hospital Course Hospital Course: HPI: 29-year-old Sinhala-speaking male with a past history significant for diabetes, hyper triglyceridemia, recent ICU admission for pancreatitis secondary to hypertriglyceridemia, history DKA, who presented to the ED with severe epigastric pain after eating dinner. He denies any alcohol use. He was seen 5 days ago in the ED and had a CT of the abdomen and pelvis which showed improvement of the pancreatic pseudocyst and pancreatitis, lipase has been trending downwards. He is currently complaining of 7/10 upper abdominal pain, received Dilaudid 2 hours ago. He is scheduled to see Gastroenterology o utpatient however this is not until May. When he was here 5 days ago he had improvement of his abdominal pain with a GI cocktail therefore gastritis/peptic ulcer disease was considered. At that time since he had improvement with the GI cocktail, he declined hospitalization. Hospital course: 29-year-old Sinhala-speaking male with a past history significant for diabetes, hypertriglyceridemia, recent ICU admission for pancreatitis secondary to hypertriglyceridemia, history DKA, who presented to the ED with severe epigastric pain after eating dinner and admitted gastritis, pancreatitis: Patient had Abdominal pain, Normal Lipase but recent CT fropm 02/16/25 with acute interstitial edematous pancreatitis with significant decrease in size of pseudocyst, lipase had been normal. A repeat cT 02/23 showed SBO with transition point in the left lower quadrant, an NGT was placed, clinically bowel obstruction resolved, in addition to bowel rest, IV fluids, pain management: With above management patient seems to be improved significantly, abdominal pain resolved, tolerating diet, passing bowels. Seen by surgery patient is currently significantly improved so no further intervention recommended. Patient has chronic microcytic anemia: H&H stable around well, monitor CBC outpatient. Hypertriglyceridemia: Continue gemfibrozil and statin, monitor lipid level outpatient. Plan: Patient was advised for low-fat/high-fiber diet. Given laxatives Also limited pain medication supply Tylenol/tramadol. Patient is to follow-up out patiently with the PCP and GI Dr. Harrison office( pancreatitis/pseudocyst/heaptomegaly ). Above management discussed with the patient in detail length he understand and in agreement with the above plan, certified master safecracker used. Total time spent 45 minute. All questions answered, patient's family was also bedside. Time Attestation Total time managing care of this patient today: 45 mintues. Discharge Coordination Time (in mins): 45min Quality: Safe Use of Opioids Does Pt have an Active Cancer Diagnosis on the Problem List?: No Quality: Stroke Does the patient have a stroke diagnosis?: No Physical Exam Exam: Exam: General: AO X 3, no acute distress Resp: CTA bilateral CVS: S1,S2,RRR GI: +BS, non tender, no distention Skin: No rash Neuro: motor grossly intact Psych: appropriate affect Vital Signs: Vital Signs: Last Vital Signs Temp 97.5 F 03/01/25 07:29 Pulse 51 03/01/25 07:29 Resp 14 03/01/25 09:50 BP 122/58 L 03/01/25 07:29 Pulse Ox 96 03/01/25 07:29 O2 Del Method Room Air 03/01/25 07:29 O2 Flow Rate 2 02/26/25 09:24 BMI result Body Mass Index 25.3 DS: Data Data Completed and Pending Completed studies during hospitalization [Text1]: Procedures Insertion of Infusion Device into Superior Vena Cava, Percutaneous Approach (12/08/24) Ultrasonography of Superior Vena Cava, Guidance (12/08/24) Labs on day of discharge: Laboratory Results - last 24 hr 02/28/25 02/28/25 02/28/25 12:05 15:53 19:49 POC Glucose 98 91 89 03/01/25 07:04 POC Glucose 81 Imaging Chest x-ray: Radiologist's impression: ct abd: 1. High-grade small-bowel obstruction. Small bowel is dilated measuring up to 4.0 cm with focal transition point likely in the left lower quadrant. 2. Pancreatitis with large pseudocysts along the pancreatic body and tail and fluid extending along the left pericolic gutter, not significantly changed from prior imaging. 3. Hepatomegaly. Discharge Plan Discharge Anticipated Discharge Date/Time: 03/01/25 10:58 Patient Disposition: Home, Self-Care Discharge Diagnosis: gastritis , pancreaitits, Ielus Referrals: Radha Bravo MD [Primary Care Provider, Internal Medicine] - 1 Week Discharge Medications: New acetaminophen 325 mg Tablet 975 mg PO Q6H PRN (Reason: Pain, Mild 1-3,Fever,Headache) Qty: 20 0RF docusate sodium 100 mg Capsule 100 mg PO BID Qty: 20 0RF polyethylene glycol 3350 17 gram Powder In Packet 17 g PO BID PRN (Reason: constipation) Qty: 100 0RF Continued atorvastatin 80 mg Tablet 80 mg PO BEDTIME Qty: 30 0RF gemfibrozil 600 mg Tablet 600 mg PO DAILY Qty: 30 0RF omeprazole 20 mg Capsule,Delayed Release(Dr/Ec) 20 mg PO DAILY@0630 Qty: 30 0RF gabapentin 300 mg capsule 300 mg PO TID insulin glargine [Lantus Solostar U-100 Insulin] 100 unit/mL (3 mL) insulin pen 10 unit subcut DAILY tramadol 50 mg tablet 50 mg PO Q8H PRN (Reason: pain) Qty: 10 0RF Discharge Orders: Discharge Order (Routine); Ordered 03/01/25 Ordered By: Edis Lua Diet: Low fat, low cholesterol Activity on Discharge: high fiber diet Stand Alone Forms: Patient Portal Discharge page, Work/School Release Print Language: Yoruba Other Ambulatory Orders: Complete Blood Count no Diff (Routine) Timeframe: 1 Week Facility: [facility] - Location: Laboratory Ordered By: Edis Lua Comprehensive Met. Panel (Routine) Timeframe: 1 Week Facility: [facility] - Location: Laboratory Ordered By: Edis Lua Lipid Panel (Routine) Timeframe: 1 Week Facility: [facility] - Location: Laboratory Ordered By: Edis Lua Care Plan Goals: pancreatitis /Ielus improving , strongly advised diet control ,low fat diet/high fiber . given supply for pain meds ,luxatives. continue statin/gemfibrozil, moniter lipid panel. follow up with pcp and Dr harrison Gi office outpatient. if any new symptoms -please go to nearest ed for further evaluation. Health Concerns: as above. Plan of Treatment: as above. Assessment: as above. Patient Instructions: Polyethylene Glycol 3350 (By mouth) (Miralax, Healthylax..., Pancreatitis (GEN), High Fiber Diet (GEN), Low Fat Diet (GEN), Bowel Obstruction (GEN)
--- NOTE | 2025-03-01 11:31 | MHC.CM.PN ---
PT TO [facility] HOME TODAY WITH NO SERVICES VIA PRIVATE TRANSPORT
[2025-03-01 12:16] VITALS: BP 112/77; PULSE 54; RESP 16; TEMP 36.1; O2SAT 98
== END 2025-03-01 13:00 | disposition home or self-care (01) | DRG 282 ==
LOC: HO.ED 02-21 01:54 → HO.EDOVER 02-21 02:00 → HO.S3 02-21 07:28
PROVIDERS: Internal Medicine; Admitting Provider Physician Assistant; Emergency Provider Emergency Medicine; PCP General Practice; Visit Provider Internal Medicine
DX: K85.80 Other acute pancreatitis without necrosis or infection (principal); K56.7 Ileus, unspecified; D50.9 Iron deficiency anemia, unspecified; E78.1 Pure hyperglyceridemia; Z79.4 Long term (current) use of insulin; E11.9 Type 2 diabetes mellitus without complications; K86.3 Pseudocyst of pancreas; Z79.899 Other long term (current) drug therapy
CPT/HCPCS: 36415; 71045; 74177; 80048; 80053; 82010; 82803; 82947; 83540; 83690; 84478; 85025; 85027; 99285; J1171; J1308; J1650; J2405; J2765; J3360; J7120; Q9967

== ENCOUNTER 2025-02-21 01:57 | Outpatient (BNV) | payer MEDICAID, SELFPAY | END 2025-02-23 15:13 | PROVIDERS: Admitting Provider Physician Assistant; Emergency Provider Emergency Medicine; Visit Provider Radiology Diagnostic Radiology | DX: K86.3 Pseudocyst of pancreas (principal); Z46.59 Encounter for fitting and adjustment of other gastrointestinal appliance and device | CPT/HCPCS: 71045; 74177 ==

== ENCOUNTER → 2025-02-21 01:57 | Outpatient (BNV) | payer MEDICAID, SELFPAY | PROVIDERS: Admitting Provider Physician Assistant; Emergency Provider Emergency Medicine; Visit Provider Physician Assistant | DX: K85.90 Acute pancreatitis without necrosis or infection, unspecified (principal); K29.70 Gastritis, unspecified, without bleeding; D50.9 Iron deficiency anemia, unspecified | CPT/HCPCS: 99223; 99231; 99232; 99499 ==

== ENCOUNTER → 2025-02-21 01:57 | Outpatient (BNV) | payer MEDICAID, SELFPAY | PROVIDERS: Admitting Provider Physician Assistant; Emergency Provider Emergency Medicine; Visit Provider Surgery | DX: K56.7 Ileus, unspecified (principal); K85.90 Acute pancreatitis without necrosis or infection, unspecified | CPT/HCPCS: 99232 ==

== ENCOUNTER 2025-03-07 14:18 | Outpatient (REF) | payer MEDICAID, SELFPAY ==
--- OUTSIDE RECORDS SUMMARY | 2025-03-07 13:45 | XMS_ITS | Encounter Summary ---
Author Organization [employer] Address [address] [place] [address] Care Team Providers Care Vault Installer Name Role Phone Radha Bravo MD Primary Care Provider [phone] Reason for Visit * Reason Comments hospital follow up Encounter Details Date Type Department Care Team ([facility] st Contact Info) Description 03/07/2025 1:45 PM EDT Office Visit [facility] [address] [place] [address] Radha Bravo MD [address], [place] [id number] Glomus jugulare tumor (CMS/HCC) (Primary Dx); Dietary counseling; Exercise counseling; Class 2 severe obesity with serious comorbidity and body mass index (BMI) of 37.0 to 37.9 in adult, unspecified obesity type (CMS/HCC); Type 2 diabetes mellitus without complication, without long-term current use of insulin (CMS/HCC); Hypertriglyceridemia; History of pancreatitis Social History Tobacco Use Types Packs/Day Years Used Date Smoking Tobacco: Never Smokeless Tobacco: Never Alcohol Use Standard Drinks/Week Comments Never 0 (1 standard drink = 0.6 oz pur e alcohol) Depression Answer Date Recorded Patient Health Questionnaire-9 Score 2 02/18/2025 Patient Health Questionnaire-9 Score 2 02/18/2025 Last PHQ-9: Questionnaire Data Not on file 0 02/18/2025 Housing Stability Answer Date Recorded What is your housing situation today? I have [place] 02/18/[address] you li ve. Do you have problems with any of the following? None of the above 02/18/2025 Food Insecurity Answer Date Recorded Within the past 12 months, y ou worried that your food would run out before you got money to buy more: Never True 02/18/2025 Within the past 12 months,th e food you bought just didn't last and you didn't have enough money to get more: Never True 06/2025 Transportation Answer Date Recorded In the past 12 months, has l ack of transportation kept you from medical appts, meetings, work or from getting things needed for daily living? No 02/18/2025 Utilities Answer Date Recorded In the past 12 months, has t he electric, gas, oil or water company threatened to shut off services in your home? No 02/18/2025 Depression Answer Date Recorded Patient Health Questionnaire-2 Score 0 02/18/2025 Internet Access Answer Date Recorded Internet Access Q1 Yes 02/18/2025 Internet Access Q2 Not on file 02/18/2025 Sex and Gender Information Value Date Recorded Sex Assigned at Male 05/09/2022 10:37 AM EDT Legal Sex Male 10:37 AM EDT Gender Identity Male 05/09/2022 10:37 AM EDT Sexual Orientation Straight 05/09/2022 10 :37 AM EDT documented as of this encounter Last Filed Vital Signs Vital Sign Reading Time Taken Comments Blood Pressure 118/64 03/07/2025 1:46 PM EDT Pulse 90 03/07/2025 1:46 PM EDT Temperature 36.7 C (98 F) 03/07/2025 1:46 PM EDT Respiratory Rate 20 03/07/2025 1:46 PM EDT Oxygen Saturation - - Inhaled Oxygen Concentration - - Weight 134 kg (296 lb) 03/07/2025 1:46 PM EDT Height 183.6 cm (6' 0.3 ) 03/07/2025 1:46 PM EDT Body Mass Index 39.81 03/07/2025 1:46 PM EDT documented in this encounter Plan of Treatment Upcoming Encounters Date Type Department Care Team (Late st Contact Info) Description 03/11/2025 3:30 PM EDT Medication Management [facility] [address], [place] [phone] Moraima Guzmán, MeliaD [address] [place] [address] Scheduled Orders Name Type Priority Associated Diagnoses Orde r Schedule Lipase Lab Routine History of pancreatitis Expected: 03/07/2025, Expires: 03/07/2026 Lipid Panel, Standard Lab Routine History of pancreatitis Expected: 03/07/2025 (Approximate), Expires: 03/07/2026 documented as of this encounter Procedures Procedure Name Priority Date/Time Associated Diagnosis Comments POCT GLYCATED HEMOGLOBIN, TOTAL Routine 03/07/2025 1:49 PM EDT Type 2 diabetes mellitus without complication, without long-term current use of insulin ([facility]) POCT GLUCOSE Routine 03/07/2025 1:49 PM EDT Type 2 diabetes mellitus without complication, without long-term current use of insulin ([facility]) documented in this encounter Results * POCT Glucose (03/07/2025 1:49 PM EDT) Glucose Blood, POC 190 60 - 200 mg/dL QC Media Lot # [id number] Lot# Expiration Date Blood Capillary blood specimen / Unknown 03/07/2025 1:49 PM EDT Result [facility] us Radha Bravo MD POINT OF CARE TEST ENTER/EDIT ORDERABLES Final Result * (ABNORMAL) POCT HGB A1C (03/07/2025 1:49 PM EDT) Hemoglobin A1C 6.2(A) 4.0 - 5.7 % QC Media Lot # [id number] Lot# Expiration Date Blood 03/07/2025 1:49 PM EDT us Radha Bravo MD POINT OF CARE TEST ENTER/EDIT ORDERABLES Final Result documented in this encounter Visit Diagnoses Diagnosis Glomus jugulare tumor (CMS/HCC)- Primary Dietary counseling Dietary surveillance and counseling Exercise counseling Class 2 severe obesity with serious comorbidity and body mass index (BMI) of 37.0 to 37.9 in adult, unspecified obesity type (CMS/HCC) Type 2 diabetes mellitus without complication, without long-term current use of insulin (CMS/HCC) Hypertriglyceridemia Pure hyperglyceridemia History of pancreatitis Personal history of other diseases of digestive disease documented in this encounter Additional Health Concerns Assessment Noted Time PHQ-9 Depression Total Score: 2 02/19/20 25 11:58 AM EDT documented as of this encounter Care Teams Vault Installer Relationship Specialty Start Date End Date Radha Bravo MD [address] [place] [id number] PCP - General Family Medicine 03/08/21 documented as of this encounter
--- OUTSIDE RECORDS SUMMARY | 2025-03-07 14:23 | XMS_ITS | Clinical Summary ---
Author Organization [facility] Address [address] [place] [phone] Phone Care Team Providers Care Costume Cutter Name Role Phone Cinthya Briones MD Primary Care Provider [phone] Social History Tobacco Use Types Packs/Day Years [...] patient's age to complete this topic Insurance [facility] Care Teams Costume Cutter Relationship Specialty Start Date End Date Cinthya Briones MD [address] [place] [address] [place] [address] PCP - General Internal Medicine 05/22/24
--- OUTSIDE RECORDS SUMMARY | 2025-03-07 14:23 | XMS_ITS | Clinical Summary ---
Author Organization [employer] Address [address] [place] [address] Care Team Providers Care Rn Transport Name Role Phone Radha Bravo MD Primary Care Provider Allergies No known active allergies Medications atorvastatin (Lipitor) 80 MG tablet Take 1 tablet (80 mg) by mouth Once per day. 90 tablet 1 02/19/20 25 Active gemfibrozil (Lopid) 600 MG tablet Take 1 tablet (600 mg) by mouth 2 times daily. 180 tablet 1 02/19/20 25 026 Active omeprazole (PriLOSEC) [address] capsule Take 1 capsule (20 mg) by mouth before breakfast. 90 capsule 1 02/19/20 25 Active insulin glargine (Lantus SoloStar) 100 UNIT/ML pen Inject 10 Units under the skin in the morning. 3 mL 3 02/19/20 25 026 Active FREESTYLE LITE test strip Use to test blood sugar 3 times daily 100 each 02/19/20 25 026 Active Lancets misc Use to test blood sugar 3 times daily 100 each 02/19/20 25 Active Alcohol Swabs 70 % pads Use to test blood sugar 3 times daily 100 each 02/19/20 25 Active Blood Glucose Monitoring Suppl (FreeStyle [place] Lite) w/Device kit Use to test blood sugar 3 times daily 1 kit 02/19/20 25 Active Continuous Glucose Rivet Heater (FreeStyle Veronica 3 [place]) device 1 each Once per day. Use as directed for CGM 1 each 02/19/20 25 Active Continuous Glucose Sensor (FreeStyle Veronica 3 Plus Sensor) misc 1 each every 15 days. Apply 1 every 15 days as directed for CGM 2 each 02/19/20 Active glucose blood (FreeStyle Precision Henry Test) test strip Use to test blood sugar 3 times daily in case of CGM failure or extremes of BG 100 each 02/19/20 Active gabapentin (Neurontin) 300 MG capsule Take 1 capsule (300 mg) by mouth 3 times daily. 90 capsule 02/19/20 Active pen needle 32G x 4 mm misc Use as instructed 30 each 02/21/20 Active acetaminophen (Tylenol) 325 MG tablet Take 3 tablets by mouth every 6 (six) hours if needed for mild pain. 03/01/20 Active docusate sodium (Colace) 100 MG capsule Take 1 capsule by mouth 2 times daily. 03/01/20 Active atorvastatin (Lipitor) 80 MG tablet Take 1 tablet by mouth Once per day. 025 Discontinued(Re order (will not trigger notification to Pharmacy)) gemfibrozil (Lopid) 600 MG tablet Take 1 tablet by mouth 2 times daily. 12/30/19 025 Discontinued(Re order (will not trigger notification to Pharmacy)) metFORMIN XR (Glucophage-XR ) 750 MG 24 hr tablet Take 1 tablet by mouth 2 times daily. 04/15/20 025 Discontinued(Si de effects) omeprazole (PriLOSEC) [address] capsule Take 1 capsule by mouth before breakfast. 12/30/19 025 Discontinued(Re order (will not trigger notification to Pharmacy)) traMADol (Ultram) 50 MG tabletIndicati ons:Pancreatic pseudocyst Take 1 tablet (50 mg) by mouth if needed in the morning, at noon, and at bedtime for severe pain for up to 7 days. 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 Type 2 diabetes mellitus 02/17/2025 BMI 37.0-37.9, adult 02/17/2025 History of pancreatitis 02/17/2025 History of COVID-19 02/17/2025 Hypertriglyceridemia 02/17/2025 Pancreatic pseudocyst 02/17/2025 Conductive hearing loss of left ear 05/14/2024 Subjective pulsatile tinnitus of left ear 2023 Encounters Date Type Department Care Team Description 03/07/2025 1:45 PM EDT Office Visit [facility] [address] [place] [phone] Radha Bravo MD Glomus jugulare tumor (CMS/HCC) (Primary Dx); Dietary counseling; Exercise counseling; Class 2 severe obesity with serious comorbidity and body mass index (BMI) of 37.0 to 37.9 in adult, unspecified obesity type (CMS/HCC); Type 2 diabetes mellitus without complication, without long-term current use of insulin (CMS/HCC); Hypertriglyceridemia; History of pancreatitis 03/07/2025 Travel 03/05/[address] [address] Radha Bravo MD chart prep 03/05/2025 Travel 03/03/2025 Orders Only [address] [address] Marcelle Shaw DO Hypertriglyceridemia (Primary Dx) 02/27/2025 Patient Outreach [address] [address] Radha Bravo MD Pre-visit Planning (SDOH screening completed on 02/18/2025) 02/27/[address] [address] Radha Bravo MD Letter for School/Work 02/20/2025 Orders Only [facility] [address] [place] [phone] Marcelle Shaw DO 02/20/2025 Orders Only [address] [address] Juve Monet, PharmD 02/18/2025 11:15 AM EDT Office Visit [address] [address] Marcelle Shaw DO Other acute pancreatitis, unspecified complication status (Primary Dx); Pancreatic pseudocyst; Hypertriglyceridemia; Type 2 diabetes mellitus without complication, without long-term current use of insulin ([facility]) 02/17/2025 Travel 02/17/[address] [address] Radha Bravo MD Chart Prep 02/04/[address] [address] Kathy Ayoub, ROSIE provider out 01/29/[address] [address] Radha Bravo MD Nurse Triage 01/27/[address] [address] Radha Bravo MD Chart Prep 01/10/2025 Orders Only GENERIC EXTERNAL DATA DEPARTMENT Provider, Generic External Data 01/09/2025 Patient Outreach [address] [address] Radha Bravo MD Transition Of Care (Tcm) (HDF unscheduled ) 01/06/2025 Patient Outreach [address] [address] Radha Bravo MD Transition Of Care (Tcm) (HDF- unscheduled LVM ) 01/06/[address] [address] Radha Bravo MD Hospital Follow-up from Last 3 Months Immunizations Immunization Administration Dates Next Due Moderna Covid-19 Vaccine 12+ 05/25/2021 Tdap 04/10/2024 Social History Tobacco Use Types Packs/Day Years Used Date Smoking Tobacco: Never Smokeless Tobacco: Never Tobacco Cessation:Counseling Given: Not Answered Alcohol Use Standard Drinks/Week Comments Never 0 [...] 20 03/07/2025 1:46 PM EDT Oxygen Saturation 99% 02/18/2025 11:55 AM EDT Inhaled Oxygen Concentration - - Weight 134 kg (296 lb) 03/07/2025 1:46 PM EDT Height 183.6 cm (6' 0.3 ) 03/07/2025 1:46 PM EDT Body Mass Index 39.81 03/07/2025 1:46 PM EDT Plan of Treatment Upcoming Encounters Date Type Department Care Team (Late st Contact Info) Description 03/11/2025 3:30 PM EDT Medication Management [facility] [address] [place] [phone] Moraima Guzmán, PharmD [address] [place] [address] Health Maintenance Due Date Last Done Comments Diabetes: Foot Exam 2006 Eye Exam 2006 Family Planning (PISQ) 2011 HPV Vaccines (1 - Male 3-dos e series) 2011 Hepatitis B Vaccines (1 of 3 - 19+ 3-dose series) 2015 Pneumococcal Vaccine: Pediatrics (0 to 5 Years) and At-Risk Patients (6 to 49) Years (1 of 2 - PCV) 2015 Diabetes: Urine Protein Screening 01/14/2022 01/14/2021 Lipid Panel 01/14/2022 01/14/2021 COVID-19 Vaccine (2 - 2023-2 5 season) 2024 05/25/2021 Influenza Vaccine (#1) 2025 Diabetes: Hemoglobin A1C 09/06/2025 025, 01/14/2021 Alcohol/Substance Use Screening 02/18/2026 02/18/2025 Depression Screening 02/18/2026 02/18/2025, 02/18/2025 Disability Screening 02/18/2026 02/18/2025 SDOH Screening 02/18/2026 02/18/2025 Tobacco Screening 02/18/2026 02/18/2025 DTaP/Tdap/Td Vaccines (2 - T d or Tdap) 04/10/2034 04/10/2024 Zoster Vaccines (1 of 2) 2046 RSV Patients and Patients Aged 60 years or older (1 - [...] Name Priority Date/Time Associated Diagnosis Comments POCT GLUCOSE Routine 03/07/2025 1:49 PM EDT Type 2 diabetes mellitus without complication, without long-term current use of insulin ([facility]) POCT GLYCATED HEMOGLOBIN, TOTAL Routine 03/07/2025 1:49 PM EDT Type 2 diabetes mellitus without complication, without long-term current use of insulin ([facility]) STREP A NUCLEIC ACID Routine 01/28/2025 8:35 AM EDT SARS COV2/INFLUENZA A/B AND RSV RNA QL NAAT Routine 01/28/2025 8:35 AM EDT COMPREHENSIVE METABOLIC PANEL Routine 01/10/2025 2:30 AM EDT CBC WITH AUTO DIFFERENTIAL Routine 01/10/2025 2:30 AM EDT URINALYSIS, COMPLETE, WITH REFLEX TO CULTURE Routine 01/10/2025 2:29 AM EDT CULTURE, URINE, ROUTINE Routine 01/10/2025 12:00 AM EDT ZZZ HISTORICAL HEPATITIS C AB W/REFL TO HCV RNA, QN, PCR Routine 01/14/2021 3:46 PM EDT HIV 1/2 ANTIGEN/ANTIBODY, FOURTH GENERATION W/RFL Routine 01/14/2021 3:46 PM EDT ALBUMIN, RANDOM URINE W/CREATININE Routine 01/14/2021 3:46 PM EDT LIPID PANEL, STANDARD Routine 01/14/2021 3:46 PM EDT from Last 3 Months or Most Recently Relevant to Health Maintenance Results * (ABNORMAL) POCT HGB A1C (03/07/2025 1:49 PM EDT) Pathologist [facility] Hemoglobin A1C 6.2(A) 4.0 - 5.7 % QC Media Lot # [id number] Lot# Expiration Date Blood 03/07/2025 1:49 PM EDT Radha Bravo MD POINT OF CARE TEST ENTER/EDIT ORDERABLES Final Result * POCT Glucose (03/07/2025 1:49 PM EDT) Pathologist [facility] Glucose Blood, POC 190 60 - 200 mg/dL QC Media Lot # [id number] Lot# Expiration Date Blood Capillary blood specimen / Unknown 03/07/2025 1:49 PM EDT Radha Bravo MD POINT OF CARE TEST ENTER/EDIT ORDERABLES Final Result * Strep A Nucleic Acid (01/28/2025 8:35 AM EDT) Pathologist [facility] IDNOW SERIAL# [id number] [facility] Strep A Nucleic Acid Negative Negative [facility] Comment:All test results mus t be correlated with clinical findings.This test has not been evaluated for monitoring treatment ofinfection.Additional follow-up testing using the culture method isrequired if the result is negative and clinical symptomspersist, or in the event of an acute rheumatic feveroutbreak. 01/28/2025 8:35 AM EDT 01/28/2025 8:39 AM EDT Generic External Data Provider LAB MICROBIOLOGY - GENERAL ORDERABLES Final Result [facility] [address] [place] [phone] * (ABNORMAL) SARS-CoV-2 RNA, Influenza A/B, and RSV RNA, Ql NAAT (01/28/2025 8:35 AM EDT) [facility] Influenza A PCR NEGATIVE Negative [facility] Influenza B PCR NEGATIVE Negative [facility] Resp Syncy Virus RNA Qual PCR NEGATIVE Negative [facility] SARS COV2 PCR POSITIVE(A) Negative [facility] Comment:All test results mus t be correlated with clinical findings.Negative results do not preclude SARS-CoV2, influenza Avirus, influenza B virus and/or RSV infectionand should not be used as the sole basis for treatment orother patient management decisions. Negative results must becombined with clinical observations, patient history, andepidemiological information.This test has not been evaluated for monitoring treatment ofinfection.This test has been authorized by the FDA under an EmergencyUse Authorization (EUA) for use by authorized laboratories.Testing performed on the [employer] GeneXpert utilizingreal-time RT-PCR.All SARS CoV2 and positive influenza A/B results arereported to [facility]. 01/28/2025 8:35 AM EDT 01/28/2025 8:39 AM EDT us Generic External Data Provider LAB MICROBIOLOGY - GENERAL ORDERABLES Final Result [facility] [address] [place] [phone] * (ABNORMAL) CBC auto differential (01/10/2025 2:30 AM EDT) Pathologist [facility] White Blood Count 5.7 4.8 - 10.8 X10*3/uL [facility] Red Blood Count 4.21(L) 4.60 - 5.80 X10*6/uL [facility] Hemoglobin 11.1(L) 14.0 - 18.0 g/dl [facility] Hematocrit 32.6(L) 42.0 - 52.0 % [facility] Mean Corpuscular Volume 77.4(L) 80.0 - 98.0 fL [facility] Mean Corpuscular Hemoglobin 26.4(L) 27.0 - 33.0 pg [facility] Mean Corpuscular HGB Conc 34.0 31.0 - 36.0 g/dl [facility] Red Cell Distribution Width 15.5 11.0 - 16.0 % [facility] Platelet Count 429(H) 160 - 400 X10*3/uL [facility] Mean Platelet Volume 9.1(L) 9.4 - 12.4 fL [facility] Neutrophils Percent Auto 52.1 45 - 73 % [facility] Imm Gran Pct Auto 0.2 0.0 - 0.4 % [facility] Lymphocytes Percent Auto 31.5 20 - 40 % [facility] Monocytes Percent Auto 10.3 2 - 11 % [facility] Eosinophils Percent Auto 4.8(H) 0 - 4 % [facility] Basophils Percent Auto 1.1 0 - 2 % [facility] NRBC Pct Auto 0.0 0.0 - 0.2 /100WBC [facility] Neutrophils Absolute Auto 3.0 2.0 - 8.3 x10*3/uL [facility] Imm Gran Abs Auto 0.01 0.00 - 0.03 X10*3/uL [facility] Lymphocytes Absolute Auto 1.8 1.2 - 4.9 X10*3/uL [facility] Monocytes Absolute Auto 0.6 0.1 - 1.2 X10*3/uL [facility] Eosinophils Absolute Auto 0.3 0.0 - 0.4 X10*3/uL [facility] Basophils Absolute Auto 0.1 0.0 - 0.2 X10*3/uL [facility] NRBC Abs Auto 0.000 0.0 - 0.012 X10*3/uL [facility] 01/10/2025 2:30 AM EDT 01/10/2025 2:33 AM EDT us Generic External Data Provider LAB BLOOD ORDERAB LES Final Result [facility] [address] [place] [phone] * (ABNORMAL) Comprehensive Metabolic Panel (01/10/2025 2:30 AM EDT) Sodium 143 135 - 145 mmol/L [facility] Comment:Marked Lipemia. Inte rpret result with caution. Potassium 4.0 3.3 - 5.1 mmol/L [facility] Comment:Marked Lipemia. Inte rpret result with caution. Chloride 107 96 - 108 mmol/L [facility] Comment:Marked Lipemia. Inte rpret result with caution. Carbon Dioxide 21(L) 22 - 29 mmol/L [facility] Comment:Marked Lipemia. Inte rpret result with caution. Anion Gap 19 12 - 20 [facility] Urea Nitrogen (BUN) 12 9 - 16 mg/dL [facility] Comment:Marked Lipemia. Inte rpret result with caution. Creatinine, Serum 0.96 0.5 - 1.4 mg/dL [facility] Comment:Marked Lipemia. Inte rpret result with caution. Creatinine Clr Calc Pharmacy 165.8 [facility] Comment:eGFR (calculated fro m the MDRD study equation) and eCrCl(calculated from the Cockcroft-Gault equation) are based ondifferent parameters and may not yield comparable results.If eCrCl result is absurd, please check patient'sheight/weight. Estimated Glomerular Filt Rate >60 [facility] Comment:Chronic Kidney Disea se: Estimated GFR < 60 mL/min/1.91f6Vxzqar Kidney Disease: Estimated GFR < 15 mL/min/1.73m2 Glucose 137(H) 60 - 115 mg/dL [facility] Comment:Marked Lipemia. Inte rpret result with caution. Calcium 9.0 8.4 - 10.2 mg/dL [facility] Comment:Marked Lipemia. Inte rpret result with caution. Bilirubin, Total 0.4 0.0 - 1.0 mg/dL [facility] Comment:Marked Lipemia. Inte rpret result with caution. Aspartate Amino Transferase 25 5 - 37 U/L [facility] Comment:Marked Lipemia. Inte rpret result with caution. Alanine Aminotransferase 26 0 - 40 U/L [facility] Comment:Marked Lipemia. Inte rpret result with caution. Total Protein 7.9 6.5 - 8.0 g/dL [facility] Comment:Marked Lipemia. Inte rpret result with caution. Albumin Level 3.6 3.5 - 5.0 g/dL [facility] Comment:Marked Lipemia. Inte rpret result with caution. Alkaline Phosphatase 100 39 - 117 U/L [facility] Comment:Marked Lipemia. Inte rpret result with caution. 01/10/2025 2:30 AM EDT 01/10/2025 2:33 AM EDT Narrative [facility] - 01/10/2025 2:54 AM EDT MODERATE LIPEMIA NOTED us Generic External Data Provider LAB BLOOD ORDERAB LES Final Result [facility] [address] [place] [phone] * (ABNORMAL) Urinalysis, Complete, with Reflex to Culture (01/10/2025 2:29 AM EDT) Color Urine RED [facility] Appearance Urine Hazy [facility] PH 5.5 5.0 - 9.0 [facility] Glucose Urine UA Negative Negative mg/dL [facility] Urine Blood Large (3+)(A) Negative [facility] Specific [place] - Urine >=1.030(H) 1.005 - 1.025 [facility] Urine Protein 100 (2+)(A) Neg-Trace mg/dL [facility] Urine Ketones Trace Negative mg/dL [facility] Nitrite Urine Positive(A) Negative [facility] Leukocyte Esterase Urine Moderate (2+)(A) Negative [facility] RBC Urine >20(A) 0 - 2 /HPF [facility] Urine WBC 6-10(A) 0 - 5 /HPF [facility] WBC CLUMPS, UR Present [facility] Urine Squamous Epithelial Cell 0-2 0 - 2 /HPF [facility] Urine Bacteria 2+ None Seen [facility] Hyaline Casts, Urine 0-2 0 - 2 /LPF [facility] 01/10/2025 2:29 AM EDT 01/10/2025 2:33 AM EDT [facility] - 01/10/2025 2:52 AM EDT 0228Urine, Clean Catch Generic External Data Provider LAB URINE ORDERAB LES Final Result Performing Organization Address [facility] Co de Phone Number [facility] [address] [place] [phone] * Culture, Urine, Routine (01/10/2025 12:00 AM EDT) Urine Urine specimen obtained by clean catch procedure / Unknown 01/10/2025 01/10/2025 Comment:[facility] - 01/12/2025 7:41 AM EDT Escherichia coli Quant 10,000 to 50,000 cfu/mL Escherichia coli: Ampicillin >=32(R) Escherichia coli: Cefazolin (Urine) 16(S) Escherichia coli: Cefepime <=0.12(S) Escherichia coli: Ceftriaxone <=0.25(S) Escherichia coli: Ciprofloxacin 0.5(I) Escherichia coli: Gentamicin <=1(S) Escherichia coli: Nitrofurantoin <=16(S) Escherichia coli: Trimethoprim/Sulfamethoxazole >=320(R) Specimen Source: Urine clean catch Generic External Data Provider LAB MICROBIOLOGY - GENERAL ORDERABLES Final Result Performing Organization Address [facility] Phone Number [facility] [address] [place] [phone] * HEPATITIS C AB W/REFL TO HCV RNA, QN, PCR (01/14/2021 3:46 PM EDT) HEPATITIS C ANTIBODY NON-REACT CORY NON-REACT CORY [facility] INDEX 0.01 <1.00 [facility] Comment: HCV antibody was non-reactive. There is no laboratory evidence of HCV infection. In most cases, no further action is required. However, if recent HCV exposure is suspected, a test for HCV RNA (test code 45606) is suggested. For additional information please refer to http://education.[employer]/faq/SPP69s0 (This link is being provided for informational/ educational purposes only.) 01/14/2021 3:46 PM EDT Dianna Pierce MD HISTORICAL/NON ORDERABLE LABS Final Result Performing Organization Address [facility] Phone Number [facility] [address] [place] [address], * ALBUMIN, RANDOM URINE W/CREATININE (01/14/2021 3:46 PM EDT) Microalbumin Urine <0.2 See Note: mg/dL [facility] Comment: Reference Range: Reference Range Not established Microalb/Creat Ratio NOTE <30 mcg/mg creat [facility] Comment: NOTE: The urine albumin value is less than 0.2 mg/dL therefore we are unable to calculate excretion and/or creatinine ratio. The ADA defines abnormalities in albumin excretion as follows: Category Result (mcg/mg creatinine) Normal <30 Microalbuminuria 30-299 Clinical albuminuria > OR = 300 The ADA recommends that at least two of three specimens collected within a 3-6 month period be abnormal before considering a patient to be within a diagnostic category. Creatinine, Urine 146 20 - 320 mg/dL [facility] 01/14/2021 3:46 PM EDT Dianna Pierce MD LAB URINE ORDERABLES Final Re sult Performing Organization Address [facility] Phone Number [facility] [address] [place] [address], [place] * HIV 1/2 ANTIGEN/ANTIBODY,FOURTH GENERATION W/RFL (01/14/2021 3:46 PM EDT) HIV-1/2 ANTIGEN AND ANTIBODIES, 4TH GENERATION W/ REFLEX NON-REACT CORY NON-REACT CORY [facility] Comment: HIV-1 antigen and HIV-1/HIV-2 [...] purpose. For additional information please refer to http://Emair.[employer].DEONT[employer]/faq/OKE426 (This link is being provided for informational/ educational purposes only.) The performance of this assay has not been clinically validated in patients less than 2 years old. 01/14/2021 3:46 PM EDT us Dianna Pierce MD LAB BLOOD ORDERABLES Final Re sult [facility] [address] * (ABNORMAL) LIPID PANEL, STANDARD (01/14/2021 [...] LDL-C. Krishna ALEJO et al. TONE. 2013;310(19): 4636-9430 (http://education.[employer].DEONTICS/faq/SXO306) Non-HDL Cholesterol 132(H) <130 mg/dL (calc) [facility] [...] MD LAB BLOOD ORDERABLES Final Re sult [facility] [address] from Last 3 Months or Most Recently Relevant to Health Maintenance Insurance [facility] [facility] C3 Care Teams Rn Transport Relationship Specialty Start Date End Date Radha Bravo MD [address] [place] [address] PCP - General Family Medicine 03/08/21
--- OUTSIDE RECORDS SUMMARY | 2025-03-07 14:23 | XMS_ITS | Encounter Summary ---
Author Organization [employer] Address [address] [place] [address] Care Team Providers Care Vp Strategy Name Role Phone Radha Bravo MD Primary Care Provider [phone] Encounter Details Date Type Department Care Team (Latest Contact Info) Description 03/05/2025 Travel Social History Tobacco Use Types Packs/Day Years [...] AM EDT documented as of this encounter Plan of Treatment Upcoming Encounters Date Type Department Care Team (Late st Contact Info) Description 03/11/2025 3:30 PM EDT Medication Management [facility] [address] [place] [address] Moraima Guzmán, PharmD [address] [place] [address] documented as of this encounter Visit Diagnoses Not on filedocumented in this encounter Additional Health Concerns Assessment Noted Time PHQ-9 Depression Total Score: 2 02/19/20 25 11:58 AM EDT documented as of this encounter Care Teams Vp Strategy Relationship Specialty Start Date End Date Radha Bravo MD [address] [place] [address] PCP - General Family Medicine 03/08/21 documented as of this encounter
--- OUTSIDE RECORDS SUMMARY | 2025-03-07 14:23 | XMS_ITS | Encounter Summary ---
Author Organization [employer] Address [address] [place] [address] Care Team Providers Care Steno Typist Name Role Phone Radha Bravo MD Primary Care Provider [phone] Encounter Details Date Type Department Care Team (Latest Contact Info) Description 03/07/2025 Travel Social History Tobacco Use Types Packs/Day [...] Description 03/11/2025 3:30 PM EDT Medication Management [facility] [address] [place] [address] Moraima Guzmán, PharmD [address] [place] [address] documented as of this encounter Visit Diagnoses Not on filedocumented in this encounter Additional Health Concerns Assessment Noted Time PHQ-9 Depression Total Score: 2 02/19/20 25 11:58 AM EDT documented as of this encounter Care Teams Steno Typist Relationship Specialty Start Date End Date Radha Bravo MD [address] [place] [address] PCP - General Family Medicine 03/08/21 documented as of this encounter
--- OUTSIDE RECORDS SUMMARY | 2025-03-07 14:23 | XMS_ITS | Patient Health Record ---
Author Organization [facility] Address [address] [place] [address] Care Team Providers Care Product Safety Tester Name Role Phone Radha Bravo M.D. Primary Care Provider Syed Chan [phone] Results Component Value Reference Range Notes Prothrombin Time INR Reviewed date:12/16/2024 09:37:21 PM Interpretation: Performing Lab:[facility], [address] [place] [address] Notes/Report: Prothrombin Time 15.7 10.9-12.4 SEC INTERNATIONAL [...] Panel Reviewed date:12/16/2024 09:37:32 PM Interpretation: Performing Lab:[facility], [address] [place] [address] Notes/Report: Bilirubin Total 1.2 0.0-1.0 mg/dL Bilirubin Direct 0.7 0.0-0.5 mg/dL Aspartate Amino Transferase 44 5-37 U/L Alanine Aminotransferase 14 0-40 U/L Total Protein 6.1 6.5-8.0 g/dL Albumin Level 2.7 3.5-5.0 g/dL Alkaline Phosphatase 128 39-117 U/L Basic Metabolic Panel Reviewed date:12/16/2024 09:35:32 PM Interpretation: Performing Lab:[address] [address] Notes/Report: Sodium 135 135-145 mmol/L Potassium 4.0 [...] Magnesium Reviewed date:12/16/2024 09:37:05 PM Interpretation: Performing Lab:[address] [address] Notes/Report: Magnesium 1.9 1.6-2.6 mg/dL Lipase Reviewed date:12/16/2024 09:35:17 PM Interpretation: Performing Lab:[facility], [address] [place] [address] Notes/Report: Lipase 196 8-78 U/L US abdomen limited Reviewed date:12/16/2024 09:35:09 PM Interpretation: Performing Lab: Notes/Report: [address] [address] Ultrasound Report Signed Patient: Chato Dickinson MR#: [id number] : 1995 Acct:[id number] Age/Sex: 29 / M ADM Date: 12/08/24 Loc: HO.S3 362-[address]: Ananth Rasmussen MD Ordering Physician: Syed Eisenberg MD Date of Service: 12/14/24 Procedure(s): US abdomen limited Accession Number(s): [id number] cc: Physician,Unknown ; Syed Eisenberg MD EXAMINATION: [...] 12/16/24 0905 DD/ 0756 TD/TT: 12/14/24 0801 Big Data Lead: Complete Blood Count Auto Di ff Reviewed date:12/24/2024 09:36:31 AM Interpretation: Performing Lab:[facility], [address] [place] [address] Notes/Report: White Blood Count 9.6 4.8-10.8 X10*3/uL [...] INR Reviewed date:12/24/2024 09:36:13 AM Interpretation: Performing Lab:[address] [address] Notes/Report: Prothrombin Time 17.0 10.9-12.4 SEC INTERNATIONAL [...] Panel Reviewed date:12/24/2024 09:36:04 AM Interpretation: Performing Lab:[address] [address] Notes/Report: Bilirubin Total 0.9 0.0-1.0 mg/dL Bilirubin Direct 0.4 0.0-0.5 mg/dL Aspartate Amino Transferase 133 5-37 U/L Alanine Aminotransferase 53 0-40 U/L Total Protein 7.7 6.5-8.0 g/dL Albumin Level 3.0 3.5-5.0 g/dL Alkaline Phosphatase 154 39-117 U/L Basic Metabolic Panel Reviewed date:12/24/2024 09:35:49 AM Interpretation: Performing Lab:[address] [address] Notes/Report: Sodium 136 135-145 mmol/L Potassium 4.3 [...] Phosphorus Reviewed date:12/24/2024 09:35:26 AM Interpretation: Performing Lab:[facility], [address] [place] [address] Notes/Report: Phosphorus 5.4 2.7-4.5 mg/dL Magnesium Reviewed date:12/24/2024 09:35:02 AM Interpretation: Performing Lab:[facility], [address] [place] [address] Notes/Report: Magnesium 1.7 1.6-2.6 mg/dL Lipase Reviewed date:12/24/2024 09:34:54 AM Interpretation: Performing Lab:[facility], [address] [place] [address] Notes/Report: Lipase 237 8-78 U/L CT abdomen pelvis w con Reviewed date:12/26/2024 12:57:44 AM Interpretation: Performing Lab: Notes/Report: [address] [place] [address] CT Scan Report Signed Patient: Chato Dickinson MR#: [id number] : 1995 Acct:[id number] Age/Sex: 29 / M ADM Date: 12/08/24 Loc: HO.S3 362-[address]: Perla Childs NP Ordering Physician: Syed Eisenberg MD Date of Service: 12/23/24 Procedure(s): CT abdomen pelvis w IV con Accession Number(s): [id number] cc: Physician,Unknown ; Syed Eisenberg MD Report Number: [id number]: Total DLP = 1706.00 mGy-cm CLINICAL HISTORY: [...] MD in OV> 12/24/2413 DD/ TD/TT: 12/24/2412 Big Data Lead: Luis Miguel Gene PCR Reviewed date:12/24/2024 06:33:34 PM Interpretation: Performing Lab:[facility], [address] [place] [address] Notes/Report: CDiff Gene PCR NEGATIVE Negative If C. difficile strongly suspected despite one negative test, a second test may be sent vs. empiric treatment for C. difficile infection. Hold Lav - Possible Hematolo gy Reviewed date:12/26/2024 11:21:10 PM Interpretation: Performing Lab:[facility], [address] [place] [address] Notes/Report: Hold Lav - Possible Hematology SEE NOTE Specimen will be held untested for 8 hours. Call Hematology if testing is desired. Prothrombin Time INR Reviewed date:12/26/2024 01:36:40 PM Interpretation: Performing Lab:[facility], [address] [place] [address] Notes/Report: Prothrombin Time 17.2 10.9-12.4 SEC INTERNATIONAL [...] Panel Reviewed date:12/26/2024 01:37:31 PM Interpretation: Performing Lab:[facility], [address] [place] [address] Notes/Report: Bilirubin Total 0.7 0.0-1.0 mg/dL Bilirubin Direct 0.4 0.0-0.5 mg/dL Aspartate Amino Transferase 107 5-37 U/L Alanine Aminotransferase 55 0-40 U/L Total Protein 8.0 6.5-8.0 g/dL Albumin Level 3.1 3.5-5.0 g/dL Alkaline Phosphatase 146 39-117 U/L Basic Metabolic Panel Reviewed date:12/26/2024 11:20:53 PM Interpretation: Performing Lab:[facility], [address] [place] [address] Notes/Report: Sodium 136 135-145 mmol/L Potassium 4.3 [...] Phosphorus Reviewed date:12/26/2024 11:20:22 PM Interpretation: Performing Lab:[address] [address] Notes/Report: Phosphorus 5.1 2.7-4.5 mg/dL Magnesium Reviewed date:12/26/2024 11:20:13 PM Interpretation: Performing Lab:[facility], [address] [place] [address] Notes/Report: Magnesium 1.8 1.6-2.6 mg/dL CT abdomen pelvis w con Reviewed date:12/29/2024 02:36:22 PM Interpretation: Performing Lab: Notes/Report: [address] [address] [address] Scan Report Signed Patient: Chato Dickinson MR#: [id number] : 1995 Acct:[id number] Age/Sex: 29 / M ADM Date: 12/08/24 Loc: HO.S3 362-[address]: Perla Childs NP Ordering Physician: Syed Eisenberg MD Date of Service: 12/28/24 Procedure(s): CT abdomen pelvis w IV con Accession Number(s): [id number] cc: Physician,Unknown ; Syed Eisenberg MD Report Number: [id number]: Total DLP = 1283.00 mGy-cm CLINICAL HISTORY: [...] 12/29/24 1017 DD/ 1016 TD/TT: 12/29/24 1016 Big Data Lead: Reason For Referral Reason abdominal pain Referring Provider First Name Radha Referring Provider Last Name [place] Referred Organization [facility] Referred Provider Syed Eisenberg Referred Address [address] [place] [phone], Referred Provider Specialty Gastroentero logy Referral Priority Routine Problems Problem Type SNOMED Code ICD Code Onset Dates Problem Status W/U Status Risk Notes Problem Pancreatitis (98873936) Pancreatitis (K85.90) Active confirmed Problem Pancreatic pseudocyst (K86.3) Active confirmed Encounters Encounter Location Date Provider Diagnosis [facility] [address] [facility] [address] [place] [phone] 02/27/2025 Syed Eisenberg [facility] [address] [place] [phone] 01/09/2025 Syed Eisenberg Pancreatitis K85.90 and Pancreatic [...] 01/09/2025 Creatinine 01/09/2025 Amylase 01/09/2025 Lipase 01/09/2025 Next Appt Details Provider Name:Syed Eisenberg , 05/27/2025 02:00:00 PM, [address], [address], [place], [address], Insurance Providers Payer Name Payer Address Payer Phone Subscriber Number Group Number Insured Name Patient Relationship to Insured Coverage Start Date Coverage End Date [employer] [address] [place] [phone] [id number] CHATO DICKINSON Self - patient is the insured
--- OUTSIDE RECORDS SUMMARY | 2025-03-07 14:23 | XMS_ITS | Encounter Summary ---
Author Organization [employer] Address [address] [facility] 7[address] [place] [address] Care Team Providers Care Emblem Maker Name Role Phone Radha Bravo MD Primary Care Provider [phone] Reason for Visit * Reason Onset Date Comments Hospital Follow-up 01/06/2025 Encounter Details Date Type Department Care Team (Late st Contact Info) Description 01/06/2025 Telephone [facility] [address] [place] [address] Radha Bravo MD [address] [place] [address] Hospital Follow-up Social History Tobacco Use Types Packs/Day Years Used Date Smoking Tobacco: Never Assessed Sex and Gender Information Value Date Recorded Sex Assigned at Male 05/09/2022 10:37 AM EDT Legal Sex Male 10:37 AM EDT Gender Identity Male 05/09/2022 10:37 AM EDT Sexual Orientation Straight 05/09/2022 10 :37 AM EDT documented as of this encounter Miscellaneous Notes * Telephone Encounter - Ros Alarcon - 01/09/2025 2:40 PM EDT Tc from pt returning call * Telephone Encounter - Jensen Radford - 01/06/2025 11:56 AM EDT Tc from pt requesting a HDF appt. [facility] [facility] Date of admission: 12/09 Discharge date: 12/30 Diagnosed: pancreatitis *Send message to [place] Clinical Care Coordinators documented in this encounter Plan of Treatment Upcoming Encounters Date Type Department Care Team (Late st Contact Info) Description 03/11/2025 3:30 PM EDT Medication Management [facility] [address] [place] [address] Moraima Guzmán, PharmD [address] [place] [address] documented as of this encounter Visit Diagnoses Not on filedocumented in this encounter Care Teams Emblem Maker Relationship Specialty Start Date End Date Radha Bravo MD [address] [place] [address] PCP - General Family Medicine 03/08/21 documented as of this encounter
--- OUTSIDE RECORDS SUMMARY | 2025-03-07 14:23 | XMS_ITS | Encounter Summary ---
Author Organization [employer] Address [address] [facility] [address] [place] [address] Care Team Providers Care Retail Shift Supervisor Name Role Phone Radha Bravo MD Primary Care Provider [phone] Reason for Referral * Consultation (Urgent) - Authorized Specialty Diagnoses / Procedures Referred By Contac t Referred To Contact Cardiology Diagnoses Hypertriglyceridemia Marcelle Shaw DO [address] [place] [address] Phone: tel: fax: [facility] [address] [place] [address] Phone: tel: fax: Referral ID Status Reason Start Date Expiration Date Visits Requested Visits Authorized [id number] Authorized Specialty Services Required 03/03/2025 03/03/2026 6 6 Encounter Details Date Type Department Care Team (Latest Contact Info) Description 03/03/2025 Orders Only [facility] [address] [place] [address] Marcelle Shaw DO [address] [place] [address] Hypertriglyceridemia (Primary Dx) Social History Tobacco Use Types Packs/Day Years [...] AM EDT documented as of this encounter Progress Notes * Marcelle Shaw DO - 03/03/2025 1:52 AM EDT Cardiology referral re-ordered. documented in this encounter Plan of Treatment Upcoming Encounters Date Type Department Care Team (Late st Contact Info) Description 03/11/2025 3:30 PM EDT Medication Management [facility] [address] [place] [address] Moraima Guzmán, PharmD [address] [place] [address] Scheduled Referrals Name Type Priority Associated Diagnoses Order Schedule Referral to Cardiology Outpatient Referral Urgent Hypertriglyceridemi a Expected: 03/03/2025 (Approximate), Expires: 03/03/2026 documented as of this encounter Visit Diagnoses Diagnosis Hypertriglyceridemia- Primary Pure hyperglyceridemia documented in this encounter Additional Health Concerns Assessment Noted Time PHQ-9 Depression Total Score: 2 02/19/20 25 11:58 AM EDT documented as of this encounter Care Teams Retail Shift Supervisor Relationship Specialty Start Date End Date Radha Bravo MD [address] [place] [address] PCP - General Family Medicine 03/08/21 documented as of this encounter
--- OUTSIDE RECORDS SUMMARY | 2025-03-07 14:23 | XMS_ITS | Encounter Summary ---
Author Organization [employer] Address [address] [facility] 7[address] [place] [address] Care Team Providers Care Earth Moving Machine Operator Name Role Phone Radha Bravo MD Primary Care Provider Reason for Visit * Reason Onset Date Comments chart prep 03/05/2025 Encounter Details Date Type Department Care Team ([facility] st Contact Info) Description 03/05/2025 Telephone [facility] [address] [place] [address] Radha Bravo MD [address] [place], [place] [phone] chart prep Social History Tobacco Use Types Packs/Day Years [...] your housing situation today? I have katerina sing 02/18/[address] you li [...] encounter Miscellaneous Notes * Telephone Encounter - Mandi Hewitt MA - 03/05/2025 12:00 PM EDT Chart Prep Labs: not done lvm for pt to complete Images: not applicable Referrals: appointment pending Vaccines due: Covid, Flu, PCV20, Hep B, and HPV Screenings: eye exam and foot exam Overdue care gaps: A1c, Glucose, PHQ-9, and JUVENTINO-7 documented in this encounter Plan of Treatment Upcoming Encounters Date Type Department Care Team (Late st Contact Info) Description 03/11/2025 3:30 PM EDT Medication Management [facility] [address] [place] [address] Moraima Guzmán, PharmD [address] [place] [address] documented as of this encounter Visit Diagnoses Not on filedocumented in this encounter Additional Health Concerns Assessment Noted Time PHQ-9 Depression Total Score: 2 02/19/20 25 11:58 AM EDT documented as of this encounter Care Teams Earth Moving Machine Operator Relationship Specialty Start Date End Date Radha Bravo MD [address] [place] [address] PCP - General Family Medicine 03/08/21 documented as of this encounter
--- OUTSIDE RECORDS SUMMARY | 2025-03-07 14:23 | XMS_ITS | Encounter Summary ---
Author Organization [employer] Address [address] [facility] [address] [place] [address] Care Team Providers Care Performance Architect Name Role Phone Radha Bravo MD Primary Care Provider [phone] Reason for Visit * Reason Onset Date Comments Letter for School/Work 02/27/2025 Encounter Details Date Type Department Care Team ([facility] st Contact Info) Description 02/27/2025 Telephone [facility] [address] [place], [place] [phone] Radha Bravo MD [address] [place], [place] [phone] Letter for School/Work Social History Tobacco Use Types Packs/Day Years [...] encounter Miscellaneous Notes * Telephone Encounter - Kathy Ayoub RN - 03/03/2025 8:58 AM EDT [employer] reviewed, pt. Discharged 03/01/25. Appt. Changed to HDF for 03/07/25. * Telephone Encounter - Kathy Ayoub RN - 02/27/2025 12:02 PM EDT Noted pt. Readmitted to [facility] since 02/21/25 for gastritis&pancreatitis. TC returned to partner (on HIPAA), advised TP 03/07/25 can be turned into HDF as long as pt. Is discharged by then, and note needed for work can be discussed at that appointment. Partner verbalizes understanding, reports plan is to currently be discharged this weekend. Postponing message to Monday to check on pt.'s disposition and make changes to appt as needed * Telephone Encounter - Eliceo Childs - 02/27/2025 9:56 AM EDT Tc from Partner stating pt will only have a week out of work after his discharge from the hospital but he is requesting a possible extension due to current conditions. If any questions please contact pt at [phone]. (Prydeinig Speaker) documented in this encounter Plan of Treatment Upcoming Encounters Date Type Department Care Team ([facility] st Contact Info) Description 03/11/2025 3:30 PM EDT Medication Management [facility] [address] [place] [address] Moraima Guzmán, MeliaD [address] [place] [address] documented as of this encounter Visit Diagnoses Not on filedocumented in this encounter Additional Health Concerns Assessment Noted Time PHQ-9 Depression Total Score: 2 02/19/20 25 11:58 AM EDT documented as of this encounter Care Teams Performance Architect Relationship Specialty Start Date End Date Radha Bravo MD [address] [place] [address] PCP - General Family Medicine 03/08/21 documented as of this encounter
[2025-03-07 17:24] LABS: Microalbum/Creatinine Ratio Ur 5.0 ug/mg cr (<30)
[2025-03-07 17:30] LABS: MANUAL DIFF FLAG NO
[2025-03-07 17:37] LABS: Hematocrit 43.5 % (42.0-52.0); Hemoglobin 14.1 g/dl (14.0-18.0); Imm Gran Abs Auto 0.03 X10*3/uL (0.00-0.03); Imm Gran Pct Auto 0.8 % (0.0-0.4); Lymphocytes Absolute Auto 1.5 X10*3/uL (1.2-4.9); Mean Corpuscular HGB Conc 32.4 g/dl (31.0-36.0); Mean Corpuscular Hemoglobin 25.0 pg (27.0-33.0); Mean Corpuscular Volume 77.1 fL (80.0-98.0); NRBC Abs Auto 0.000 X10*3/uL (0.0-0.012); NRBC Pct Auto 0.0 /100WBC (0.0-0.2); Platelet Count 368 X10*3/uL (160-400); Red Blood Count 5.64 X10*6/uL (4.60-5.80); White Blood Count 4.0 X10*3/uL (4.8-10.8)
[2025-03-07 18:28] LABS: Alanine Aminotransferase 22 U/L (0-40); Albumin Level 4.4 g/dL (3.5-5.0); Alkaline Phosphatase 75 U/L (39-117); Amylase 138 U/L (28-100); Anion Gap 13 (12-20); Aspartate Amino Transferase 30 U/L (5-37); Blood Urea Nitrogen 16 mg/dL (9-16); Calcium 9.6 mg/dL (8.4-10.2); Carbon Dioxide 25 mmol/L (22-29); Chloride 106 mmol/L (96-108); Cholesterol 122 mg/dL (<200); Estimated Glomerular Filt Rate > 60; HDL Cholesterol 23 mg/dL (>40); Lipase 73 U/L (8-78); Potassium 4.1 mmol/L (3.3-5.1); Sodium 140 mmol/L (135-145); Total Protein 7.9 g/dL (6.5-8.0); Triglycerides 215 mg/dL (<150)
[2025-03-07 18:43] LABS: Alanine Aminotransferase 19 U/L (0-40); Albumin Level 4.4 g/dL (3.5-5.0); Alkaline Phosphatase 75 U/L (39-117); Anion Gap 13 (12-20); Aspartate Amino Transferase 35 U/L (5-37); Blood Urea Nitrogen 15 mg/dL (9-16); Calcium 9.4 mg/dL (8.4-10.2); Carbon Dioxide 24 mmol/L (22-29); Chloride 107 mmol/L (96-108); Cholesterol 121 mg/dL (<200); Estimated Glomerular Filt Rate > 60; HDL Cholesterol 23 mg/dL (>40); Lipase 72 U/L (8-78); Potassium 4.1 mmol/L (3.3-5.1); Sodium 140 mmol/L (135-145); Total Protein 7.8 g/dL (6.5-8.0); Triglycerides 214 mg/dL (<150)
[2025-03-08 03:46] LABS: Hemoglobin A1C 172.7752 umol/L; Total Hemoglobin (HGBA1C) 3634.8887 umol/L
== END 2025-03-07 14:19 | disposition home or self-care (01) ==
LOC: HO.HHCL 14:18
PROVIDERS: PCP General Practice; Referring Provider Internal Medicine; Visit Provider Family Medicine
DX: K85.80 Other acute pancreatitis without necrosis or infection (principal); K86.3 Pseudocyst of pancreas; E78.1 Pure hyperglyceridemia; E11.9 Type 2 diabetes mellitus without complications; Z87.19 Personal history of other diseases of the digestive system
CPT/HCPCS: 36415; 80048; 80053; 80061; 80076; 82043; 82150; 82248; 82570; 83036; 83690; 85025

== ENCOUNTER 2025-03-28 12:00 | Outpatient (REF) | payer MEDICAID, SELFPAY ==
[2025-03-28 12:18] LABS: MANUAL DIFF FLAG NO
--- OUTSIDE RECORDS SUMMARY | 2025-03-28 12:23 | XMS_ITS | Patient Health Record ---
Author Organization [facility] [place] Address [address] [place] [address] Care Team Providers Care Coarse Wire Drawer Name Role Phone Radha Bravo M.D. Primary Care Provider Syed Chan [phone] Results Component Value Reference Range Notes Prothrombin Time INR Reviewed date:12/16/2024 09:37:21 PM Interpretation: Performing Lab:[facility], [address] [place] [phone] Notes/Report: Prothrombin Time 15.7 10.9-12.4 SEC INTERNATIONAL [...] Panel Reviewed date:12/16/2024 09:37:32 PM Interpretation: Performing Lab:[facility], [address] [place] [phone] Notes/Report: Bilirubin Total 1.2 0.0-1.0 mg/dL Bilirubin Direct 0.7 0.0-0.5 mg/dL Aspartate Amino Transferase 44 5-37 U/L Alanine Aminotransferase 14 0-40 U/L Total Protein 6.1 6.5-8.0 g/dL Albumin Level 2.7 3.5-5.0 g/dL Alkaline Phosphatase 128 39-117 U/L Basic Metabolic Panel Reviewed date:12/16/2024 09:35:32 PM Interpretation: Performing Lab:[address] [address] Notes/Report: Sodium 135 135-145 mmol/L Potassium 4.0 [...] Magnesium Reviewed date:12/16/2024 09:37:05 PM Interpretation: Performing Lab:[address] [address] Notes/Report: Magnesium 1.9 1.6-2.6 mg/dL Lipase Reviewed date:12/16/2024 09:35:17 PM Interpretation: Performing Lab:[facility], [address] [place] [phone] Notes/Report: Lipase 196 8-78 U/L US abdomen limited Reviewed date:12/16/2024 09:35:09 PM Interpretation: Performing Lab: Notes/Report: [address] [address] Ultrasound Report Signed Patient: Chato Dickinson MR#: [id number] : 1995 Acct:[id number] Age/Sex: 29 / M ADM Date: 12/08/24 Loc: HO.S3 362-[address]: Ananth Rasmussen MD Ordering Physician: Syed Eisenberg MD Date of Service: 12/14/24 Procedure(s): US abdomen limited Accession Number(s): [id number] cc: Physician,Unknown ; Syed Eisenberg MD EXAMINATION: [...] 12/16/24 0905 DD/ 0756 TD/TT: 12/14/24 0801 Public Works Manager: Complete Blood Count Auto Di ff Reviewed date:12/24/2024 09:36:31 AM Interpretation: Performing Lab:[facility], [address] [place] [phone] Notes/Report: White Blood Count 9.6 4.8-10.8 X10*3/uL [...] INR Reviewed date:12/24/2024 09:36:13 AM Interpretation: Performing Lab:[address] [address] Notes/Report: Prothrombin Time 17.0 10.9-12.4 SEC INTERNATIONAL [...] Panel Reviewed date:12/24/2024 09:36:04 AM Interpretation: Performing Lab:[address] [address] Notes/Report: Bilirubin Total 0.9 0.0-1.0 mg/dL Bilirubin Direct 0.4 0.0-0.5 mg/dL Aspartate Amino Transferase 133 5-37 U/L Alanine Aminotransferase 53 0-40 U/L Total Protein 7.7 6.5-8.0 g/dL Albumin Level 3.0 3.5-5.0 g/dL Alkaline Phosphatase 154 39-117 U/L Basic Metabolic Panel Reviewed date:12/24/2024 09:35:49 AM Interpretation: Performing Lab:[address] [address] Notes/Report: Sodium 136 135-145 mmol/L Potassium 4.3 [...] Phosphorus Reviewed date:12/24/2024 09:35:26 AM Interpretation: Performing Lab:[facility], [address] [place] [phone] Notes/Report: Phosphorus 5.4 2.7-4.5 mg/dL Magnesium Reviewed date:12/24/2024 09:35:02 AM Interpretation: Performing Lab:[facility], [address] [place] [phone] Notes/Report: Magnesium 1.7 1.6-2.6 mg/dL Lipase Reviewed date:12/24/2024 09:34:54 AM Interpretation: Performing Lab:[facility], [address] [place] [phone] Notes/Report: Lipase 237 8-78 U/L CT abdomen pelvis w con Reviewed date:12/26/2024 12:57:44 AM Interpretation: Performing Lab: Notes/Report: [address] [place] [address] CT Scan Report Signed Patient: Chato Dickinson MR#: [id number] : 1995 Acct:[id number] Age/Sex: 29 / M ADM Date: 12/08/24 Loc: HO.S3 362-[address]: Perla Childs NP Ordering Physician: Syed Eisenberg MD Date of Service: 12/23/24 Procedure(s): CT abdomen pelvis w IV con Accession Number(s): [id number] cc: Physician,Unknown ; Syed Eisenberg MD Report Number: [id number]: Total DLP = 1706.00 mGy-cm CLINICAL HISTORY: [...] MD in OV> 12/24/2413 DD/ TD/TT: 12/24/2412 Public Works Manager: Luis Miguel Gene PCR Reviewed date:12/24/2024 06:33:34 PM Interpretation: Performing Lab:[facility], [address] [place] [phone] Notes/Report: CDiff Gene PCR NEGATIVE Negative If C. difficile strongly suspected despite one negative test, a second test may be sent vs. empiric treatment for C. difficile infection. Hold Lav - Possible Hematolo gy Reviewed date:12/26/2024 11:21:10 PM Interpretation: Performing Lab:[facility], [address] [place] [phone] Notes/Report: Hold Lav - Possible Hematology SEE NOTE Specimen will be held untested for 8 hours. Call Hematology if testing is desired. Prothrombin Time INR Reviewed date:12/26/2024 01:36:40 PM Interpretation: Performing Lab:[facility], [address] [place] [phone] Notes/Report: Prothrombin Time 17.2 10.9-12.4 SEC INTERNATIONAL [...] Panel Reviewed date:12/26/2024 01:37:31 PM Interpretation: Performing Lab:[facility], [address] [place] [phone] Notes/Report: Bilirubin Total 0.7 0.0-1.0 mg/dL Bilirubin Direct 0.4 0.0-0.5 mg/dL Aspartate Amino Transferase 107 5-37 U/L Alanine Aminotransferase 55 0-40 U/L Total Protein 8.0 6.5-8.0 g/dL Albumin Level 3.1 3.5-5.0 g/dL Alkaline Phosphatase 146 39-117 U/L Basic Metabolic Panel Reviewed date:12/26/2024 11:20:53 PM Interpretation: Performing Lab:[facility], [address] [place] [phone] Notes/Report: Sodium 136 135-145 mmol/L Potassium 4.3 [...] Phosphorus Reviewed date:12/26/2024 11:20:22 PM Interpretation: Performing Lab:[address] [address] Notes/Report: Phosphorus 5.1 2.7-4.5 mg/dL Magnesium Reviewed date:12/26/2024 11:20:13 PM Interpretation: Performing Lab:[facility], [address] [place] [phone] Notes/Report: Magnesium 1.8 1.6-2.6 mg/dL CT abdomen pelvis w con Reviewed date:12/29/2024 02:36:22 PM Interpretation: Performing Lab: Notes/Report: [address] [address] [address] Scan Report Signed Patient: Chato Dickinson MR#: [id number] : 1995 Acct:[id number] Age/Sex: 29 / M ADM Date: 12/08/24 Loc: HO.S3 362-[address]: Perla Childs NP Ordering Physician: Syed Eisenberg MD Date of Service: 12/28/24 Procedure(s): CT abdomen pelvis w IV con Accession Number(s): [id number] cc: Physician,Unknown ; Syed Eisenberg MD Report Number: [id number]: Total DLP = 1283.00 mGy-cm CLINICAL HISTORY: [...] 12/29/24 1017 DD/ 1016 TD/TT: 12/29/24 1016 Public Works Manager: Reason For Referral Reason abdominal pain Referring Provider First Name Radha Referring Provider Last Name [place] Referred Organization [facility] Referred Provider Syed Eisenberg Referred Address [address] [place] [phone], Referred Provider Specialty Gastroentero logy Referral Priority Routine Problems Problem Type SNOMED Code ICD Code Onset Dates Problem Status W/U Status Risk Notes Problem Pancreatitis (68670615) Pancreatitis (K85.90) Active confirmed Problem Pancreatic pseudocyst (439429904) Pancreatic pseudocyst (K86.3) Active confirmed Encounters Encounter Location Date Provider Diagnosis [facility] [address] [place] [phone] 01/09/2025 Syed Eisenberg Pancreatitis K85.90 and Pancreatic pseudocyst K86.3 [facility] [address] [place] [phone] 02/27/2025 Syed Eisenberg [facility] [address] [place] [phone] 03/12/2025 Syed Eisenberg Pancreatitis K85.90 and Pancreatic pseudocyst K86.3 [facility] [address] [facility] [place] [phone] 03/13/2025 Syed Eisenberg Assessments Encounter Date Diagnosis (ICD Code) Assessment Notes Treatment Notes Treatment Clinical Notes Section Notes 01/09/2025 Pancreatitis (ICD-10 - K85.90) 01/09/2025 Pancreatic pseudocyst (ICD-10 - K86.3) 03/12/2025 Pancreatitis (ICD-10 - K85.90) Do the labs and CT in 04/2025. The labs have to be fasting. 03/12/2025 Pancreatic pseudocyst (ICD-10 - K86.3) Plan Of Treatment Pending Test Test Name Order Date CHEM 7 PROFILE 03/12/2025 BUN 01/09/2025 LIVER PROFILE 03/12/2025 LIVER PROFILE 01/09/2025 CBC w DIFF 03/12/2025 CBC w DIFF 01/09/2025 CT ABD & PELVIS WITH CONTRAST 03/12/2025 CT ABD & PELVIS WITH CONTRAST 01/09/2025 Prothrombin Time INR 01/09/2025 Creatinine 01/09/2025 Triglycerides 03/12/2025 Amylase 03/12/2025 Amylase 01/09/2025 Lipase 03/12/2025 Lipase 01/09/2025 Next Appt Details Provider Name:Syed Eisenberg , 05/27/2025 02:00:00 PM, [address] [place] [address], [address], [place], [address], Insurance Providers Payer Name Payer Address Payer Phone Subscriber Number Group Number Insured Name Patient Relationship to Insured Coverage Start Date Coverage End Date MEDICAID OF [facility] [address] [place] [id number] [id number] CHATO DICKINSON Self - patient is the insured
--- OUTSIDE RECORDS SUMMARY | 2025-03-28 12:23 | XMS_ITS | Clinical Summary ---
Author Organization [facility] Address [address] [place] [phone] Phone Care Team Providers Care Yard Inspector Name Role Phone Cinthya Briones MD Primary Care Provider Social History Tobacco Use Types Packs/Day Years [...] of 3 - 19+ 3-dose series) 2015 HIV Screening 05/22/2024 Hepatitis C Screening 05/22/2024 Social Influencers of Health Screening 05/22/2024 Depression Screening 07/10/2024 COVID-19 Vaccine ( - 2023-2 5 season) 2025 Influenza Vaccine (#1) 2025 RSV Immunization Adult Patie nts (1 - 1-dose 75+ series) 2071 HIB Vaccines Aged Out No longer eligi [...] patient's age to complete this topic Insurance [place] [address] PLAN Care Teams Yard Inspector Relationship Specialty Start Date End Date Cinthya Briones MD [address] [place] [address] [place] [id number] PCP - General Internal Medicine 05/22/24
--- OUTSIDE RECORDS SUMMARY | 2025-03-28 12:23 | XMS_ITS | Clinical Summary ---
Author Organization [employer] Address [address] [facility] [address] [place] [address] Care Team Providers Care [employer] Superintendent Name Role Phone Radha Bravo MD Primary Care Provider [phone] Allergies No known active allergies Medications atorvastatin (Lipitor) 80 MG tablet Take 1 tablet (80 mg) by mouth Once per day. 90 tablet 1 5 Active gemfibrozil (Lopid) 600 MG tablet Take 1 tablet (600 mg) by mouth 2 times daily. 180 tablet 1 5 02/19/20 26 Active omeprazole (PriLOSEC) [address] capsule Take 1 capsule (20 mg) by mouth before breakfast. 90 capsule 1 5 Active insulin glargine (Lantus SoloStar) 100 UNIT/ML pen Inject 10 Units under the skin in the morning. 3 mL 3 5 02/19/20 26 Active FREESTYLE LITE test strip Use to test blood sugar 3 times daily 100 each 5 02/19/20 26 Active Lancets misc Use to test blood sugar 3 times daily 100 each 5 Active Alcohol Swabs 70 % pads Use to test blood sugar 3 times daily 100 each 5 Active Blood Glucose Monitoring Suppl (FreeStyle [place] Lite) w/Device kit Use to test blood sugar 3 times daily 1 kit 5 Active Continuous Glucose Knotting Machine Operator Portable (FreeStyle Veronica 3 Amite) device 1 each Once per day. Use as directed for CGM 1 each 5 Active Continuous Glucose Sensor (FreeStyle Veronica 3 Plus Sensor) misc 1 each every 15 days. Apply 1 every 15 days as directed for CGM 2 each Active glucose blood (FreeStyle Precision Henry Test) test strip Use to test blood sugar 3 times daily in case of CGM failure or extremes of BG 100 each 11 5 02/19/20 Active gabapentin (Neurontin) 300 MG capsule Take 1 capsule (300 mg) by mouth 3 times daily. 90 capsule 3 5 02/19/20 Active pen needle 32G x 4 mm misc Use as instructed 30 each 3 5 02/21/20 Active acetaminophen (Tylenol) 325 MG tablet Take 3 tablets by mouth every 6 (six) hours if needed for mild pain. Active docusate sodium (Colace) 100 MG capsule Take 1 capsule by mouth 2 times daily. 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 Assessment & Plan (03/08/2025 4:27 PM EDT): S/p radiation spring 2024 Type 2 diabetes mellitus 02/17/2025 Assessment & Plan (03/08/2025 4:28 PM EDT): Current A1c: 6.7 BMP: Microalbumin: Foot Exam: Complete at follow up Eye Exam: Discuss at follow up Lipid panel: ASCVD: Calculate pending updated labs Statin: Yes ASA: No KEILY/ARB: No Encouraged regular aerobic exercise for improved glycemic control Encouraged daily foot checks Encouraged lean protein snacks and to avoid foods high in sugar and simple carbohydrates Treatment Goals: A1c goal: <7% FBG goal: <130 2 hour post prandial goal: <180 BMI 37.0-37.9, adult 02/17/2025 History of pancreatitis 02/17/2025 Assessment & Plan (03/08/2025 4:28 PM EDT): He is improving slowly Need GI input as far as further treatment modalities Hypertriglyceridemia 02/17/2025 Assessment & Plan (03/08/2025 4:26 PM EDT): Continue statin and gemfibrozil Pancreatic pseudocyst 02/17/2025 Conductive hearing loss of left ear 05/14/2024 Subjective pulsatile tinnitus of left ear 2023 Resolved Problems Problem Noted Date Diagnosed Date Resolved Date History of COVID-19 02/17/2025 03/08/20 25 Encounters Date Type Department Care Team Description 03/17/2025 Telephone [facility] [place] [address] Radha Bravo MD Letter for School/Work 03/14/2025 Refill [facility] [place] [address] Marcelle Shaw DO 03/14/2025 Telephone [facility] [place] [place] [address] Radha Bravo MD Referral 03/12/2025 Population [facility] Risk Score [facility] () Department [address] [place] [address] [phone] Provider, Population Health Generic 03/11/2025 Telephone [facility] [place] [address] Kathy Ayoub, RN Results 03/07/2025 1:45 PM EDT Office Visit [facility] [place] [address] Radha Bravo MD History of pancreatitis (Primary Dx); Glomus jugulare tumor (CMS/HCC); Dietary counseling; Exercise counseling; Class 2 severe obesity with serious comorbidity and body mass index (BMI) of 37.0 to 37.9 in adult, unspecified obesity type (CMS/HCC); Type 2 diabetes mellitus without complication, without long-term current use of insulin (CMS/HCC); Hypertriglyceridemia; Pancreatic pseudocyst 03/07/2025 Orders Only GENERIC EXTERNAL DATA DEPARTMENT Provider, Generic External Data 03/07/2025 Travel 03/05/2025 Telephone [facility] [place] [address] Radha Bravo MD chart prep 03/05/2025 Travel 03/03/2025 Orders Only [facility] [place] [address] Marcelle Shaw DO Hypertriglyceridemia (Primary Dx) 02/27/2025 Patient Outreach [address] [address] Radha Bravo MD Pre-visit Planning (SDPR screening completed on 02/18/2025) 02/27/[address] [address] Radha Bravo MD Letter for School/Work 02/20/2025 Orders Only [facility] [address] [place] [phone] Marcelle Shaw DO 02/20/2025 Orders Only [address] [address] Juve Monet, PharmD 02/18/2025 11:15 AM EDT Office Visit [address] [address] Marcelle Shaw DO Other acute pancreatitis, unspecified complication status (Primary Dx); Pancreatic pseudocyst; Hypertriglyceridemia; Type 2 diabetes mellitus without complication, without long-term current use of insulin ([facility]) 02/17/2025 Travel 02/17/[address] [address] Radha Bravo MD Chart Prep 02/04/[address] [address] Kathy Ayoub, RN provider out 01/29/[address] [address] Radha Bravo MD Nurse Triage 01/27/[address] [address] Radha Bravo MD Chart Prep 01/10/2025 Orders Only GENERIC EXTERNAL DATA DEPARTMENT Provider, Generic External Data 01/09/2025 Patient Outreach [address] [address] Radha Bravo MD Transition Of Care (Tcm) (HDF unscheduled ) 01/06/2025 Patient Outreach [address] [address] Radha Bravo MD Transition Of Care (Tcm) (HDF- unscheduled LVM ) 01/06/2025 Telephone [facility] [address] [place] [address] Radha Bravo MD Hospital Follow-up from Last [...] Care Team (Late st Contact Info) Description 05/09/2025 2:15 PM EDT Office Visit [facility] [address] [place] [address] Radha Bravo MD [address] [place] [address] Health Maintenance Due Date Last Done Comments Diabetes: Foot Exam 2006 Eye Exam 2006 Family Planning (PISQ) 2011 HPV Vaccines (1 - Male 3-dos e series) 2011 Hepatitis B Vaccines (1 of 3 - 19+ 3-dose series) 2015 Pneumococcal Vaccine: Pediatrics (0 to 5 Years) and At-Risk Patients (6 to 49) Years (1 of 2 - PCV) 2015 COVID-19 Vaccine (2 - 2024-2 6 season) 2025 05/25/2021 Influenza Vaccine (#1) 2025 Diabetes: Hemoglobin A1C 09/06/2025 025, 03/07/2025, 01/14/2021 Alcohol/Substance Use Screening 02/18/2026 02/18/2025 Depression Screening 02/18/2026 02/18/2025, 02/18/2025 Disability Screening 02/18/2026 02/18/2025 SDOH Screening 02/18/2026 02/18/2025 Diabetes: Urine Protein Screening 03/07/2026 03/07/2025, 01/14/2021 Lipid Panel 03/07/2026 03/07/2025, 03/07/2025, 01/14/2021 Tobacco Screening 03/08/2026 03/08/2025 DTaP/Tdap/Td Vaccines (2 - T d or [...] Procedure Name Priority Date/Time Associated Diagnosis Comments LIPID PANEL, STANDARD Routine 03/07/2025 2:26 PM EDT COMPREHENSIVE METABOLIC PANEL Routine 03/07/2025 2:26 PM EDT LIPID PANEL, STANDARD Routine 03/07/2025 2:26 PM EDT History of pancreatitis LIPASE Routine 03/07/2025 2:26 PM EDT History of pancreatitis CBC WITH AUTO DIFFERENTIAL Routine 03/07/2025 2:26 PM EDT Other acute pancreatitis, unspecified complication status Pancreatic pseudocyst Hypertriglyceridemia Type 2 diabetes mellitus without complication, without long-term current use of insulin ([facility]) LIPASE Routine 03/07/2025 2:26 PM EDT Other acute pancreatitis, unspecified complication status Pancreatic pseudocyst Hypertriglyceridemia Type 2 diabetes mellitus without complication, without long-term current use of insulin (CMS/HCC) AMYLASE Routine 03/07/2025 2:26 PM EDT Other acute pancreatitis, unspecified complication status Pancreatic pseudocyst Hypertriglyceridemia Type 2 diabetes mellitus without complication, without long-term current use of insulin (CMS/HCC) ALBUMIN, RANDOM URINE W/CREATININE Routine 03/07/2025 2:26 PM EDT Other acute pancreatitis, unspecified complication status Pancreatic pseudocyst Hypertriglyceridemia Type 2 diabetes mellitus without complication, without long-term current use of insulin (CMS/HCC) BASIC METABOLIC PANEL Routine 03/07/2025 2:26 PM EDT Other acute pancreatitis, unspecified complication status Pancreatic pseudocyst Hypertriglyceridemia Type 2 diabetes mellitus without complication, without long-term current use of insulin (CMS/HCC) HEMOGLOBIN A1C Routine 03/07/2025 2:26 PM EDT Other acute pancreatitis, unspecified complication status Pancreatic pseudocyst Hypertriglyceridemia Type 2 diabetes mellitus without complication, without long-term current use of insulin (CMS/HCC) HEPATIC FUNCTION PANEL Routine 03/07/2025 2:26 PM EDT Other acute pancreatitis, unspecified complication status Pancreatic pseudocyst Hypertriglyceridemia Type 2 diabetes mellitus without complication, without long-term current use of insulin (CMS/HCC) POCT GLUCOSE Routine 03/07/2025 1:49 PM EDT Type 2 diabetes mellitus without complication, without long-term current use of insulin (CMS/HCC) POCT GLYCATED HEMOGLOBIN, TOTAL Routine 03/07/2025 1:49 PM EDT Type 2 diabetes mellitus without complication, without long-term current use of insulin (CMS/HCC) STREP A NUCLEIC ACID Routine 01/28/2025 8:35 [...] GENERATION W/RFL Routine 01/14/2021 3:46 PM EDT from Last 3 Months or Most Recently Relevant to Health Maintenance Results * Albumin, Random Urine W/Creatinine (03/07/2025 2:26 PM EDT) Creatinine, Urine 178.97 mg/dL [facility] Microalbumin Urine 9.0 mg/L [facility] Microalbum Creatinine Ratio Ur 5.0 <30 ug/mg cr [facility] Comment:Albumin/Creatinine R atio Reference Ranges: Normal: < 30 ug/mg creatinine Microalbuminuria: 30 - 300 ug/mg creatinineClinical Albuminuria: > 300 ug/mg creatinine Urine (Urine, Random) 03/07/2025 2:26 PM EDT 03/07/2025 4:10 PM EDT us Marcelle Shaw DO LAB URINE ORDERABLES Final R esult [facility] [address] [place] [phone] * (ABNORMAL) CBC auto differential (03/07/2025 2:26 PM EDT) Only the most recent of2 resultswithin the time period is included. White Blood Count 4.0(L) 4.8 - 10.8 X10*3/uL [facility] Red Blood Count 5.64 4.60 - 5.80 X10*6/uL [facility] Hemoglobin 14.1 14.0 - 18.0 g/dl [facility] Hematocrit 43.5 42.0 - 52.0 % [facility] Mean Corpuscular Volume 77.1(L) 80.0 - 98.0 fL [facility] Mean Corpuscular Hemoglobin 25.0(L) 27.0 - 33.0 pg [facility] Mean Corpuscular HGB Conc 32.4 31.0 - 36.0 g/dl [facility] Red Cell Distribution Width 15.2 11.0 - 16.0 % [facility] Platelet Count 368 160 - 400 X10*3/uL [facility] Mean Platelet Volume 9.4 9.4 - 12.4 fL [facility] Neutrophils Percent Auto 48.8 45 - 73 % [facility] Imm Gran Pct Auto 0.8(H) 0.0 - 0.4 % [facility] Lymphocytes Percent Auto 37.2 20 - 40 % [facility] Monocytes Percent Auto 8.9 2 - 11 % [facility] Eosinophils Percent Auto 2.8 0 - 4 % [facility] Basophils Percent Auto 1.5 0 - 2 % [facility] NRBC Pct Auto 0.0 0.0 - 0.2 /100WBC [facility] Neutrophils Absolute Auto 1.9(L) 2.0 - 8.3 x10*3/uL [facility] Imm Gran Abs Auto 0.03 0.00 - 0.03 X10*3/uL [facility] Lymphocytes Absolute Auto 1.5 1.2 - 4.9 X10*3/uL [facility] Monocytes Absolute Auto 0.4 0.1 - 1.2 X10*3/uL [facility] Eosinophils Absolute Auto 0.1 0.0 - 0.4 X10*3/uL [facility] Basophils Absolute Auto 0.1 0.0 - 0.2 X10*3/uL [facility] NRBC Abs Auto 0.000 0.0 - 0.012 X10*3/uL [facility] Blood Venous blood specimen / Unknown 03/07/2025 2:26 PM EDT 03/07/2025 5:25 PM EDT us Marcelle Shaw DO LAB BLOOD ORDERABLES Final R esult Performing Organization Address City/[facility]/ZIP Co de Phone Number [facility] [address] [place] [phone] * Lipase (03/07/2025 2:26 PM EDT) Only the most recent of2 resultswithin the time period is included. Lipase 72 8 - 78 U/L [facility] Blood Venous blood specimen / Unknown 03/07/2025 2:26 PM EDT 03/07/2025 5:25 PM EDT us Radha Bravo MD LAB BLOOD ORDERABLES Final Res ult Performing Organization Address [facility] de Phone Number [facility] [address] [place] [phone] * (ABNORMAL) Hemoglobin A1c (03/07/2025 2:26 PM EDT) Hemoglobin A1c 6.5(H) <6.0 % [facility] Comment:Hemoglobin A1C Refer ence Range Adults: 4.8 - 6.0 % Non diabetic: < 6.0 % Goal: < 7.0 %Additional Action Suggested: > 8.0 %Note: Hemoglobin A1c results are invalid for patients with abnormal amounts of HbF. Blood transfusions may impact the HbA1c concentration in the patient sample. Estimated Average Glucose 140 mg/dL [facility] Comment:eAG = Estimated ave rage glucose which is %A1C expressed asaverage glucose, using the formula of the [id number] Glucose study (ADAG), Diabetes Care, Vol.31,#8,2007 Blood Venous blood specimen / Unknown 03/07/2025 2:26 PM EDT 03/07/2025 5:25 PM EDT Marcelle Shaw DO LAB BLOOD ORDERABLES Final R esult Performing Organization Address City/[facility]/ZIP Co de Phone Number [facility] [address] [place] [phone] * (ABNORMAL) Amylase (03/07/2025 2:26 PM EDT) Amylase 138(H) 28 - 100 U/L [facility] Blood Venous blood specimen / Unknown 03/07/2025 2:26 PM EDT 03/07/2025 5:25 PM EDT Marcelle Shaw DO LAB BLOOD ORDERABLES Final R esult Performing Organization Address City/[facility]/ZIP Co de Phone Number [facility] [address] [place] [phone] * Hepatic Function Panel (03/07/2025 2:26 PM EDT) Bilirubin, Total 0.6 0.0 - 1.0 mg/dL [facility] Bilirubin, Direct 0.2 0.0 - 0.5 mg/dL [facility] Aspartate Amino Transferase 35 5 - 37 U/L [facility] Alanine Aminotransferase 19 0 - 40 U/L [facility] Total Protein 7.8 6.5 - 8.0 g/dL [facility] Albumin Level 4.4 3.5 - 5.0 g/dL [facility] Alkaline Phosphatase 75 39 - 117 U/L [facility] Blood Venous blood specimen / Unknown 03/07/2025 2:26 PM EDT 03/07/2025 5:25 PM EDT Marcelle Shaw DO LAB BLOOD ORDERABLES Final R esult [facility] [address] [place] [phone] * (ABNORMAL) Lipid Panel, Standard (03/07/2025 2:26 PM EDT) Only the most recent of2 resultswithin the time period is included. Triglycerides 215(H) <150 mg/dL [facility] Comment:Desirable Triglyceri de: less than 150 mg/dLBorderline High Triglyceride 150-199 mg/dLHigh Triglyceride: 200-499 mg/dLVery High Triglyceride: greater than or equal to 5OO mg/dL Cholesterol 122 <200 mg/dL [facility] Comment:Desirable Cholestero l: less than 200 mg/dLBorderline High Cholesterol: 200-239 mg/dLHigh Cholesterol: greater than 239 mg/dL LDL Cholesterol Calculated 56 <100 mg/dL [facility] Comment:Desirable LDL: less than 100 mg/dLNear Optimal/Above Optimal LDL: 110- 129 mg/dLBorderline High LDL: 130-159 mg/dLHigh LDL: 160-189 mg/dLVery High LDL: greater than or equal to 190 mg/dL HDL Cholesterol 23(L) >40 mg/dL [facility] Comment:Desirable HDL: great er than 40 mg/dL Note: This HDL assay may give artificially low results in patients with liver disease. 03/07/2025 2:26 PM EDT 03/07/2025 5:25 PM EDT us Generic External Data Provider LAB BLOOD ORDERAB LES Final Result [facility] [address] [place] [phone] * (ABNORMAL) Comprehensive Metabolic Panel (03/07/2025 2:26 PM EDT) Only the most recent of2 resultswithin the time period is included. Sodium 140 135 - 145 mmol/L [facility] Potassium 4.1 3.3 - 5.1 mmol/L [facility] Chloride 106 96 - 108 mmol/L [facility] Carbon Dioxide 25 22 - 29 mmol/L [facility] Anion Gap 13 12 - 20 [facility] Urea Nitrogen (BUN) 16 9 - 16 mg/dL [facility] Creatinine, Serum 0.95 0.5 - 1.4 mg/dL [facility] Estimated Glomerular Filt Rate >60 [facility] Comment:Chronic Kidney Disea se: Estimated GFR < 60 mL/min/[id number] Kidney Disease: Estimated GFR < 15 mL/min/1.73m2 Glucose 191(H) 60 - 115 mg/dL [facility] Calcium 9.6 8.4 - 10.2 mg/dL [facility] Bilirubin, Total 0.6 0.0 - 1.0 mg/dL [facility] Aspartate Amino Transferase 30 5 - 37 U/L [facility] Alanine Aminotransferase 22 0 - 40 U/L [facility] Total Protein 7.9 6.5 - 8.0 g/dL [facility] Albumin Level 4.4 3.5 - 5.0 g/dL [facility] Alkaline Phosphatase 75 39 - 117 U/L [facility] 03/07/2025 2:26 PM EDT 03/07/2025 5:25 PM EDT us Generic External Data Provider LAB BLOOD ORDERAB LES Final Result [facility] [address] [place] [phone] * (ABNORMAL) Basic Metabolic Panel (03/07/2025 2:26 PM EDT) Sodium 140 135 - 145 mmol/L [facility] Potassium 4.1 3.3 - 5.1 mmol/L [facility] Chloride 107 96 - 108 mmol/L [facility] Carbon Dioxide 24 22 - 29 mmol/L [facility] Anion Gap 13 12 - 20 [facility] Urea Nitrogen (BUN) 15 9 - 16 mg/dL [facility] Creatinine, Serum 0.88 0.5 - 1.4 mg/dL [facility] Estimated Glomerular Filt Rate >60 [facility] Comment:Chronic Kidney Disea se: Estimated GFR < 60 mL/min/[id number] Kidney Disease: Estimated GFR < 15 mL/min/1.73m2 Glucose 197(H) 60 - 115 mg/dL [facility] Calcium 9.4 8.4 - 10.2 mg/dL [facility] Blood Venous blood specimen / Unknown 03/07/2025 2:26 PM EDT 03/07/2025 5:25 PM EDT Marcelle Shaw DO LAB BLOOD ORDERABLES Final R esult Performing Organization Address City/State/[facility] Co de Phone Number [facility] [address] [place] [phone] * (ABNORMAL) POCT HGB A1C (03/07/2025 1:49 [...] A Nucleic Acid (01/28/2025 8:35 AM EDT) IDNOW SERIAL# [id number] [facility] Strep A Nucleic Acid Negative Negative [facility] Comment:All test results mus t be correlated with clinical findings.This test has not been evaluated for monitoring treatment ofinfection.Additional follow-up testing using the culture method isrequired if the result is negative and clinical symptomspersist, or in the event of an acute rheumatic feveroutbreak. 01/28/2025 8:35 AM EDT 01/28/2025 8:39 AM EDT Nephera External Data Provider LAB MICROBIOLOGY - GENERAL ORDERABLES Final Result [facility] [address] [place] [phone] * (ABNORMAL) SARS-CoV-2 RNA, Influenza A/B, and RSV RNA, Ql NAAT (01/28/2025 8:35 AM EDT) Pathologist [facility] Influenza A PCR NEGATIVE Negative [facility] Influenza B PCR NEGATIVE Negative [facility] Resp Syncy Virus RNA Qual PCR NEGATIVE Negative [facility] SARS COV2 PCR POSITIVE(A) Negative [facility] Comment:All test results mus t be [...] use by authorized laboratories.Testing performed on the [employer] GeneXpert utilizingreal-time RT-PCR.All SARS CoV2 and positive influenza A/B results arereported to [facility]. 01/28/2025 8:35 AM EDT 01/28/2025 8:39 AM EDT Generic External Data Provider LAB MICROBIOLOGY - GENERAL ORDERABLES Final Result Performing Organization Address City/[facility]/ZIP Co de Phone Number [facility] [address] [place] [phone] * (ABNORMAL) Urinalysis, Complete, with Reflex to Culture (01/10/2025 2:29 AM EDT) Color Urine RED [facility] Appearance Urine Hazy [facility] PH 5.5 5.0 - 9.0 [facility] Glucose Urine UA Negative Negative mg/dL [facility] Urine Blood Large (3+)(A) Negative [facility] Specific [place] - Urine >=1.030(H) 1.005 - 1.025 [facility] Urine Protein 100 (2+)(A) Neg-Trace mg/dL [facility] Urine Ketones Trace Negative mg/dL [facility] Nitrite Urine Positive(A) Negative [facility] Leukocyte Esterase Urine Moderate (2+)(A) Negative [facility] RBC Urine >20(A) 0 - 2 /HPF [facility] Urine WBC 6-10(A) 0 - 5 /HPF [facility] WBC CLUMPS, UR Present [facility] Urine Squamous Epithelial Cell 0-2 0 - 2 /HPF [facility] Urine Bacteria 2+ None Seen [facility] Hyaline Casts, Urine 0-2 0 - 2 /LPF [facility] 01/10/2025 2:29 AM EDT 01/10/2025 2:33 AM EDT Narrative [facility] - 01/10/2025 2:52 AM EDT 0228Urine, Clean Catch Generic External Data Provider LAB URINE ORDERAB LES Final Result Performing Organization Address City/[facility]/ZIP Co de Phone Number [facility] [address] [place] [phone] * Culture, Urine, Routine (01/10/2025 12:00 AM EDT) Urine Urine specimen obtained by clean catch procedure / Unknown 01/10/2025 01/10/2025 Comment:UACC Narrative [facility] - 01/12/2025 7:41 AM EDT Escherichia [...] GENERAL ORDERABLES Final Result Performing Organization Address [facility] Co de Phone Number [facility] [address] [place] [phone] * HEPATITIS C AB W/REFL TO HCV RNA, QN, PCR (01/14/2021 3:46 PM EDT) HEPATITIS C ANTIBODY NON-REACT CORY NON-REACT CORY [facility] INDEX 0.01 <1.00 [facility] Comment: HCV antibody was non-reactive. There is no laboratory evidence of HCV infection. In most cases, no further action is required. However, if recent HCV exposure is suspected, a test for HCV RNA (test code 82557) is suggested. For additional information please refer to http://education.[employer]/faq/LLG18j7 (This link is being provided for informational/ educational purposes only.) 01/14/2021 3:46 PM EDT us Dianna Pierce MD HISTORICAL/NON ORDERABLE LABS Final Result Performing Organization Address City/[facility]/ZIP Co de Phone Number [facility] [address] * HIV 1/2 ANTIGEN/ANTIBODY,FOURTH GENERATION W/RFL (01/14/2021 3:46 PM EDT) HIV-1/2 ANTIGEN AND ANTIBODIES, 4TH GENERATION W/ REFLEX NON-REACT CORY NON-REACT CORY [facility] Comment: HIV-1 antigen and HIV-1/HIV-2 [...] purpose. For additional information please refer to http://education.Marley Spoon/faq/KJA432 (This link is being provided for informational/ educational purposes only.) The performance of this assay has not been clinically validated in patients less than 2 years old. 01/14/2021 3:46 PM EDT us Dianna Pierce MD LAB BLOOD ORDERABLES Final Re sult [facility] [address] from Last 3 Months or Most Recently Relevant to Health Maintenance Insurance HSN PARTIAL [facility] C3 Care Teams [employer] Superintendent Relationship Specialty Start Date End Date Radha Bravo MD [address] [place] [id number] PCP - General Family Medicine 03/08/21
[2025-03-28 12:47] LABS: Hematocrit 40.3 % (42.0-52.0); Hemoglobin 13.6 g/dl (14.0-18.0); Imm Gran Abs Auto 0.01 X10*3/uL (0.00-0.03); Imm Gran Pct Auto 0.3 % (0.0-0.4); Lymphocytes Absolute Auto 1.7 X10*3/uL (1.2-4.9); Mean Corpuscular HGB Conc 33.7 g/dl (31.0-36.0); Mean Corpuscular Hemoglobin 25.3 pg (27.0-33.0); Mean Corpuscular Volume 75.0 fL (80.0-98.0); NRBC Abs Auto 0.000 X10*3/uL (0.0-0.012); NRBC Pct Auto 0.0 /100WBC (0.0-0.2); Platelet Count 265 X10*3/uL (160-400); Red Blood Count 5.37 X10*6/uL (4.60-5.80); White Blood Count 3.8 X10*3/uL (4.8-10.8)
[2025-03-28 13:13] LABS: Alanine Aminotransferase 24 U/L (0-40); Albumin Level 4.3 g/dL (3.5-5.0); Alkaline Phosphatase 88 U/L (39-117); Amylase 86 U/L (28-100); Anion Gap 7 (12-20); Aspartate Amino Transferase 22 U/L (5-37); Blood Urea Nitrogen 13 mg/dL (9-16); Calcium 9.2 mg/dL (8.4-10.2); Carbon Dioxide 28 mmol/L (22-29); Chloride 108 mmol/L (96-108); Estimated Glomerular Filt Rate > 60; Lipase 35 U/L (8-78); Potassium 4.1 mmol/L (3.3-5.1); Sodium 139 mmol/L (135-145); Total Protein 7.3 g/dL (6.5-8.0); Triglycerides 138 mg/dL (<150)
== END 2025-03-28 12:01 | disposition home or self-care (01) ==
LOC: HO.LAB 12:00
PROVIDERS: PCP General Practice; Visit Provider Internal Medicine
DX: K86.3 Pseudocyst of pancreas (principal); K85.90 Acute pancreatitis without necrosis or infection, unspecified
CPT/HCPCS: 36415; 80048; 80076; 82150; 83690; 84478; 85025

== ENCOUNTER 2025-04-22 12:44 | Outpatient (REF) | payer MEDICAID, SELFPAY ==
--- NOTE | ~2025-04-22 | CT_ITS ---
EXAMINATION: CT ABDOMEN AND PELVIS WITH CONTRAST CLINICAL INFORMATION: Pancreatitis COMPARISON: February 23, 2025 TECHNIQUE: Multidetector volumetric images were obtained from the superior aspect of the liver through the pubic symphysis following administration 85 mL of Omnipaque 350 intravenous contrast. Sagittal and coronal reformatted images were obtained on the technologist's workstation. Oral contrast: No This CT examination was performed using dose optimization techniques as appropriate, variously including the following: *Automated exposure control *Adjustment of mA and/or kV according to patient size (this includes techniques or standardized protocols for targeted exams where dose is matched to indication/reason for exam; i.e. extremities or head) *Use of iterative reconstruction technique FINDINGS: LUNG BASES: The visualized lung bases are unremarkable. LIVER, GALLBLADDER, AND BILIARY TREE: Liver demonstrates decreased attenuation. The gallbladder is unremarkable with no evidence of radiopaque gallstones, gallbladder wall thickening, or obvious pericholecystic inflammatory changes. PANCREAS: There is a 2.3 cm rind of increased attenuation around the tail the pancreas minimal extending toward the body, decreased since the prior CT. Fluid also tracks anterior to the left kidney, also decreased since the prior. SPLEEN: Unremarkable. ADRENAL GLANDS: Unremarkable. KIDNEYS AND URETERS: The kidneys are normal in size, shape, and attenuation. No hydronephrosis, hydroureter, or calculi seen. No perinephric stranding. BLADDER: Unremarkable. GASTROINTESTINAL TRACT: The small and large bowel are unremarkable. The appendix is unremarkable. ABDOMINAL WALL: No significant hernia is appreciated. LYMPH NODES: Normal. VASCULAR: Unremarkable. PELVIC VISCERA: Unremarkable. OSSEOUS STRUCTURES: Unremarkable. CT/CT abdomen pelvis w IV con IMPRESSION: Again seen are changes of pancreatitis with decreasing pseudocyst along the pancreas body and tail and anterior to the left kidney. Interval resolution of small bowel obstruction. Hepatic steatosis Fleischner guidelines were followed. Electronically signed by: Darion Spence MD 04/22/2025 03:54 PM EDT
--- OUTSIDE RECORDS SUMMARY | 2025-04-22 15:22 | XMS_ITS | Clinical Summary ---
Author Organization [facility] Address [address] [place] [phone] Phone Care Team Providers Care Internist Name Role Phone Cinthya Briones MD Primary Care Provider [phone] Social History Tobacco Use Types Packs/Day Years [...] of 3 - 19+ 3-dose series) 2015 HPV Vaccines (1 - 3-dose SCD M series) 2023 HIV Screening 05/22/2024 Hepatitis C Screening 05/22/2024 Social Influencers of Health Screening 05/22/2024 Depression Screening 07/10/2024 COVID-19 Vaccine (1 - 2023-2 5 season) 2025 Influenza Vaccine [...] patient's age to complete this topic Insurance [facility] Care Teams Internist Relationship Specialty Start Date End Date Cinthya Briones MD [address] [place] [address] Dr Ayala [place] [phone] PCP - General Internal Medicine 05/22/24
--- OUTSIDE RECORDS SUMMARY | 2025-04-22 15:22 | XMS_ITS | Data Portability ---
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 There is a small portion of the tumor extending into the middle ear space which is visible behind the tympanic membrane. Recommend dedicated MRI scan of the brain and internal auditory canals and skull base to assess this tumor in more detail. We discussed the high likelihood that he will be referred for radiation treatment of this tumor, as surgical removal of such a tumor is associated with severe morbidity. [email or web address] Not available 05/14/2024 12:52:42 Plan of Treatment Reminders Order Date Submit Date Provider Last Modified By Organization Details Last Modified Time Details Appointments None recorded. Lab None recorded. Referral None recorded. Procedures None recorded. Surgeries None recorded. Imaging MRI, brain + internal auditory canal, w/wo contrast - MRI, BRAIN + INTERNAL AUDITORY CANAL, W/WO CONTRAST 2023 024 [facility] ([facility]), [address] [place], [address], 14:06:23 Medication Orders None recorded. Patient TargetsNo targets recorded. Patient InstructionsNo instructions recorded. Reason for Referral None Reported. Results Created Date Observation Date Name Description Value Unit Range Abnormal Flag Note LastModifiedBy Organization Detail LastModifiedTime 05/06/20 24 04/12/2024 CT, maxil lofac ial, w/ contr ast No observ ation record ed. BARCODE Not Available 2023 15:08:18 05/06/20 24 04/12/2024 CT, head + brain , w/wo contr ast No observ ation record ed. BARCODE Not Available 2023 15:08:18 05/15/20 audio gram No observ ation record ed. BARCODE Not Available 2023 14:29:34 05/20/20 24 05/16/2024 MRI, brain + brain stem, w/wo contr ast [facility] Access ion Number : [id number] [place] Name: Chato Sinha Record Number : [id number] Date of : 1994 Date of Exam: 2023 Referr ing Physic darlene: Mynor Perera re Ear Nose [address] [place] [address] Exam: MR Brain (C-/C+ ) CPT 02367 Room Descri ption: [place] 1.5 HISTOR Y: Erosiv e tumor on CT. Glomus jugula re. TECHNI QUE: Multip lanar multis equenc e MRI of the brain (IAC) was obtain ed before and after the admini strati on of 20 cc of Dotare m. COMPAR NOE: CT scan of the head 024 FINDIN GS: * There is a large avidly -enhan cing mass center ed on the left jugula r forame n which correl ates with the permea tive, destru ctive mass presen t on the prior CT scan. On the precon trast images , multip le stippl ed and puncta te T1 bright foci are presen t within the mass, which is also hetero geneou sly bright on the T2-es ghted images . The extent of osseou s involv ement and destru ction is better seen on the prior CT, and this is well deline ated on the CT report . Involv ement of the left occipi elisa condyl e, left hypogl ossal canal, and mastoi d tempor al bone is noted, and tumor likely compre sses encase s the left hypogl ossal nerve. Compre ssion of and probab le invasi on of the left sigmoi d sinus with patenc y of the upstre am left transv erse sinus. The lesion also likely encase s the mastoi d segmen t of the left facial nerve. The left caroti d flow void is mainta ined. The compon ent of the mass extend ing into the left hypoty mpanum and mesoty mpanum is more easily visual ized on the noncon trast CT, but this correl ates with T1 hypoin tense and enhanc ing soft tissue over the cochle ar promon tory (serie s 6, image 13) and (serie s 8, image 13). This measur es at least 6 mm AP by 3 mm TR. It is diffic ult to measur e the mass due to its extens shaye multis patial locati on, but the mass measur es approx imatel y 40 mm TR by up to 35 mm SI by 35mm AP. The brains tem is normal in signal . A small T2 bright focus within the right cerebe llum may repres ent a small focus of enceph alomal acia. The ventri cular system is normal in size. No extra- axial fluid collec tion. T2 bright signal is presen t within the left petrou s apex and right mastoi d air cells. A right maxill letha sinus retent ion cyst is also presen t. IMPRES RACHID: An avidly -enhan cing mass center ed within the LEFT jugula r forame n and extend ing into the left middle ear cavity is compat ible with a glomus jugulo tympan icum. Electr onical ly Signed By: Brent Arteaga MD [email or web address] [facility] ([facility]) [address] [facility] [place], [address], 05/21/2024 12:56:02 Result Notes Documentation Provider Name and Address Organization Details Recorded Time Mri, Brain + Brain Stem, W/wo Contrast : [facility] Accession Number: [id number] Patient Name: Chato Kaur Date of : 1995 Date of Exam: 05-16-2024 Referring Physician: Darshan Perera Ear [facility] [address] [place] [address] Exam: MR Brain (C-/C+) CPT 88136 Room Description: [facility] 1.5 HISTORY: Erosive tumor on CT. Glomus jugulare. TECHNIQUE: Multiplanar multisequence MRI of the brain (IAC) was obtained before and after the administration of 20 cc of Dotarem. COMPARISON: CT scan of the head 04/12/2024 FINDINGS: * There is a large avidly-enhancing mass centered on the left jugular foramen which correlates with the permeative, destructive mass present on the prior CT scan. On the precontrast images, multiple stippled and punctate T1 bright foci are present within the mass, which is also heterogeneously bright on the T2-weighted images. The extent of osseous involvement and destruction is better seen on the prior CT, and this is well delineated on the CT report. Involvement of the left occipital condyle, left hypoglossal canal, and mastoid temporal bone is noted, and tumor likely compresses encases the left hypoglossal nerve. Compression of and probable invasion of the left sigmoid sinus with patency of the upstream left transverse sinus. The lesion also likely encases the mastoid segment of the left facial nerve. The left carotid flow void is maintained. The component of the mass extending into the left hypotympanum and mesotympanum is more easily visualized on the noncontrast CT, but this correlates with T1 hypointense and enhancing soft tissue over the cochlear promontory (series 6, image 13) and (series 8, image 13). This measures at least 6 mm AP by 3 mm TR. It is difficult to measure the mass due to its extensive multispatial location, but the mass measures approximately 40 mm TR by up to 35 mm SI by 35mm AP. The brainstem is normal in signal. A small T2 bright focus within the right cerebellum may represent a small focus of encephalomalacia. The ventricular system is normal in size. No extra-axial fluid collection. T2 bright signal is present within the left petrous apex and right mastoid air cells. A right maxillary sinus retention cyst is also present. IMPRESSION: An avidly-enhancing mass centered within the LEFT jugular foramen and extending into the left middle ear cavity is compatible with a glomus jugulotympanicum. 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 DARSHAN PERERA MD 100 [facility],[place] [address], [place], [address], [facility] - [facility] 20:50:59 Conductive hearing loss of left ear 0748421039 Active 2023 SHANKAR PETERSON [address],[place] [address], [place], [address], [facility] 11:29:58 Left conductive hearing loss 1712980726416 Active 2023 SHANKAR PETERSON [address],[place] [address], [place], [address], [facility] 11:30:59 Subjective pulsatile tinnitus of left ear [id number] 103 Active 2023 DARSHAN PERERA MD 100 [facility],[place] [address], [place], [address], [facility] 12:51:33 Problem Notes None recorded. Procedures Surgical History Date Name Laterality Status Provider Name and Address Organization Details Recorded Time Comp Audio with Tymps & Reflexes - 25335 & 88419 completed ERASMO SR 100 [facility],[place] [address], [place], [address], [facility] 05/14/2024 11:29:29 Imaging Results None recorded. Procedure Notes None recorded. Medical Equipment None Reported. Allergies Allergen ID Allergen Name Allergen Category Reaction Reaction Severity Criticality Documentation Date Start Date Code Code System Note Provider Name and Address Organization Details Recorded Time 058793 metformin medicatio n Not available Not available Not available 05/14/2024 6809 RxNorm Nini amin [facility] 11:07:04 Medications Name Sig Start Date Stop Date Status Note LastModified by Organization Details LastModified Time losartan 50 mg tablet TOME 1 TABLETA POR V A ORAL TODOS LOS D 05/14 completed Not Available Not Available Not Available metformin 500 mg tablet TAKE 1 TABLET BY MOUTH TWICE A DAY 05/14 completed Not Available Not Available Not Available atorvastati n 80 mg tablet TAKE 1 TABLET BY MOUTH EVERY DAY active Not Available Not Available No t Available atorvastati n 20 mg tablet TAKE 1 TABLET BY MOUTH EVERY DAY 05/14 completed Not Available Not Available Not Available azithromyci n 250 mg tablet TOME 2 TABLETAS V A ORAL HOY, LUE[place] TOME 1 TABLETA DIARIAMEN TE INGA 4 D SEG N LAS INDICACIO IVETT 05/14 completed Not Available Not Available Not Available ampicillin 500 mg capsule TAKE 1 CAPSULE BY MOUTH EVERY 12 HOURS FOR 7 DAYS 05/14 completed Not Available Not Available Not Available senna 8.6 mg tablet TAKE TWO TABLETS TWICE A DAY WHILE TAKING OXYCODONE TO PREVENT CONSTIPAT ION. CAN THEN TAKE NEEDED 05/14 completed Not Available Not Available Not Available ondansetron HCl 4 mg tablet TOME 1 TABLETA POR V A ORAL CADA 6 HORAS CUANDO SEA NECESARIO PARA LAS N USEAS Y EL V TINY active Not Available Not Available No t Available prednisone 20 mg tablet TAKE 1 TABLET BY MOUTH TWICE DAILY FOR 5 DAYS, THEN 1 TABLET DAILY 05/14 completed Not Available Not Available Not Available tramadol 50 mg tablet TAKE 1 TABLET BY MOUTH THREE TIMES DAILY IN THE MORNING, AT NOON, AND AT BEDTIME NEEDED FOR SEVERE PAIN active Not Available Not Available No t Available hydromorpho ne 2 mg tablet TOME VENKAT TABLETA SABIHA VECES AL D A ANTES DE LAS COMIDAS PARA DOLOR MABEL CUANDO SEA NECESARIO active Not Available Not Available No t Available gemfibrozil 600 mg tablet TAKE 1 TABLET BY MOUTH TWICE DAILY active Not Available Not Available No t Available glipizide ER 2.5 mg tablet, extended release 24 hr TOME 1 TABLETA POR V A ORAL TODOS LOS D active Not Available Not Available No t Available gabapentin 300 mg capsule TAKE 1 CAPSULE BY MOUTH THREE TIMES DAILY active Not Available Not Available No t Available omeprazole 20 mg capsule,del ayed release TOME 1 C PSULA POR V A ORAL TODOS LOS D active Not Available Not Available No t Available cefuroxime axetil 500 mg tablet TOME 1 TABLETA POR V A ORAL CADA 12 HORAS active Not Available Not Available No t Available losartan 100 mg tablet active Not Available Not Available Not Available amoxicillin 875 mg-potassiu m clavulanate 125 mg tablet TOME 1 TABLETA POR V A ORAL DOS VECES AL D A 05/14 completed Not Available Not Available Not Available oxycodone 5 mg tablet TOME 1 TABLETA POR V A ORAL DOS VECES AL D A CUANDO SEA NECESARIO PARA EL DOLOR active Not Available Not Available No t Available Novolog FlexPen U-100 Insulin aspart 100 unit/mL (3 mL) subcutaneou s PLEASE SEE ATTACHED FOR DETAILED DIRECTION S active Not Available Not Available No t Available metformin ER 750 mg tablet,exte nded release 24 hr TOME 1 TABLETA POR V A ORAL DOS VECES AL D A 05/14 completed Not Available Not Available Not Available Alcohol Prep Pads USE DIRECTED TO TEST BLOOD SUGAR THREE TIMES DAILY active Not Available Not Available No t Available fenofibrate 160 mg tablet TAKE 1 TABLET BY MOUTH EVERY DAY 05/14 completed Not Available Not Available Not Available Januvia 100 mg tablet 05/14 completed Not Available Not Available Not Available FreeStyle Lite Meter kit CROATIAN CHECK BLOOD SUGAR THREE TIMES A DAY BEFORE MEALS AND AT BEDTIME 05/14 completed Not Available Not Available Not Available Lantus Solostar U-100 Insulin 100 unit/mL (3 mL) subcutaneou s pen INJECT 10 UNITS SUBCUTANE OUSLY EVERY MORNING active Not Available Not Available No t Available Gavilax 17 gram/dose oral powder PLEASE SEE ATTACHED FOR DETAILED DIRECTION S 05/14 completed Not Available Not Available Not Available TRUEplus Lancets 33 gauge USE DIRECTED TO TEST BLOOD SUGAR THREE TIMES DAILY active Not Available Not Available No t Available Trulicity 0.75 mg/0.5 mL subcutaneou s pen injector active Not Available Not Available Not Available FreeStyle Precision Henry Strips USE DIRECTED TO TEST BLOOD SUGAR THREE TIMES DAILY active Not Available Not Available No t Available FreeStyle Veronica 3 [place] USE DIRECTED TO TEST BLOOD SUGAR EVERY DAY active Not Available Not Available No t Available FreeStyle Veronica 3 Plus Sensor device APPLY 1 SENSOR TOPICALLY EVERY 15 DAYS. USE DIRECTED TO TEST BLOOD SUGAR active Not Available Not Available No t Available Vitals Date Recorded Body height Body weight Provider Name and Address Organization Details Last Updated DateTime 05/14/2024 190.5 cm 692807.56 g Nini Dan [place] [facility] 05/14/2024 11:09:49 Social History None recorded. Functional Status None recorded. Mental Status None recorded. Family History Nothing Reported. Medical History Condition Response High Cholesterol Y Diabetes Y Asthma Y Hypertension Y Past Encounters Encounter ID Performer Location Encounter Start Date Encounter Closed Date Diagnosis/Indication Diagnosis SNOMED-CT Code Diagnosis ICD10 Code Diagnosis IMO Codes Diagnosis Note [id number] DARSHAN PERERA MD [facility] [address] [address] 05/14/2024 10:59:34 05/14/2024 12:11:43 Neoplasm of glomus jugulare 220367249 D49.7 Left condu ctive hearing loss 5091613817 107 H90.12 Audiologic al evaluation results: 05/14/2024 ight ear:Normal hearing with excellent word recognitio n.Left ear:Normal sloping to a mild conductive hearing loss with excellent word recognitio n. Tympanomet ry:Right Ear:Type CLeft Ear:Type C Acoustic Reflex Testing: Signal to theRight Ear(uncros sed): Normal Signal to theLeft Ear(uncros sed):Absen t Mild conductive hearing loss noted in the high frequencie s of the left ear associated with the presence of the tympanic portion of the glomus jugulare tumor. This is also the cause of his left pulsatile tinnitus. Subjective pulsatile tinnitus of left ear [id number] 322583 H93.A2 Health Concerns Section Related Observation LastModified by Organization Detai ls LastModified Time None Recorded Concern Status LastModified by Organization Details LastModified Time None Recorded Advance Directives Directive None Recorded Payers Insurance Date Sequence Insurance Name Policy Number Policy Suarez Covered Member ID Suarez Member ID Guarantor Name 02/27/2025 1 [facility] PLAN (MEDICAID HMO) [id number] Chato Woodard [id number] Chato Kaur Notes Date Note Type Note Provider Name and Address Organization Details Recorded Time 05/14/2024 text/html 28-year-old diabetic hypertensive male referred for evaluation of left skull base mass. Patient had CT scan of the maxillofacial area last month which showed a large enhancing soft tissue mass centered at the left jugular foramen with associated extensive osseous erosion. The mass extends superiorly into the middle ear over the cochlear promontory. The mass measures 3.5 x 3.1 x 3 cm, with erosion of the left carotid canal, inferolateral clivus. There is soft tissue invasion of the sigmoid sinus. There is erosion of the left occipital condyle and posterior margin of the hypoglossal canal. There is slight flattening of the adjacent anterior inferior cerebellum without definite edema. The mass has appearance of a glomus jugulare tumor. Patient referred to [facility] neurosurgery who redirected the consult to me. Patient notes occasional pulsatile tinnitus in the left ear for the past few months. He gets chronic daily headaches primarily centered around the right occiput.. He has noticed no changes in vocal quality or strength. No troubles with swallowing. Patient comes in today accompanied by his girlfriend who is helping with Azerbaijani translation. She would like to be the medicare contact specialist for future scheduling, and he is in agreement with this. DARSHAN PERERA MD [address] [place] [address], [place], [address], [place] [facility] 05/14/2024 12:53:19
--- OUTSIDE RECORDS SUMMARY | 2025-04-22 15:23 | XMS_ITS | Patient Health Record ---
Author Organization [facility] Address [address] [place] [address] Care Team Providers Care Claims Consultant Name Role Phone Radha Bravo M.D. Primary Care Provider Syed Chan [phone] Results Component Value Reference Range Notes Prothrombin Time INR Reviewed date:12/16/2024 09:37:21 PM Interpretation: Performing Lab:[facility], [address] [place] [phone] Notes/Report: Prothrombin Time 15.7 10.9-12.4 SEC INTERNATIONAL [...] Panel Reviewed date:12/16/2024 09:37:32 PM Interpretation: Performing Lab:[facility], [address] [place] [phone] Notes/Report: Bilirubin Total 1.2 0.0-1.0 mg/dL Bilirubin Direct 0.7 0.0-0.5 mg/dL Aspartate Amino Transferase 44 5-37 U/L Alanine Aminotransferase 14 0-40 U/L Total Protein 6.1 6.5-8.0 g/dL Albumin Level 2.7 3.5-5.0 g/dL Alkaline Phosphatase 128 39-117 U/L Basic Metabolic Panel Reviewed date:12/16/2024 09:35:32 PM Interpretation: Performing Lab:[address] [address] Notes/Report: Sodium 135 135-145 mmol/L Potassium 4.0 [...] Magnesium Reviewed date:12/16/2024 09:37:05 PM Interpretation: Performing Lab:[address] [phone] Notes/Report: Magnesium 1.9 1.6-2.6 mg/dL Lipase Reviewed date:12/16/2024 09:35:17 PM Interpretation: Performing Lab:[facility], [address] [place] [phone] Notes/Report: Lipase 196 8-78 U/L US abdomen limited Reviewed date:12/16/2024 09:35:09 PM Interpretation: Performing Lab: Notes/Report: [address] [address] Ultrasound Report Signed Patient: Chato Dickinson MR#: [id number] : 1995 Acct:[id number] Age/Sex: 29 / M ADM Date: 12/08/24 Loc: HO.S3 362-[address]: Ananth Rasmussen MD Ordering Physician: Syed Eisenberg MD Date of Service: 12/14/24 Procedure(s): US abdomen limited Accession Number(s): [id number] cc: Physician,Unknown ; Syed Eisenberg MD EXAMINATION: [...] 12/16/24 0905 DD/ 0756 TD/TT: 12/14/24 0801 [employer]person [employer]: Complete Blood Count Auto Di ff Reviewed date:12/24/2024 09:36:31 AM Interpretation: Performing Lab:[facility], [address] [place] [phone] Notes/Report: White Blood Count 9.6 4.8-10.8 X10*3/uL [...] INR Reviewed date:12/24/2024 09:36:13 AM Interpretation: Performing Lab:[address] [phone] Notes/Report: Prothrombin Time 17.0 10.9-12.4 SEC INTERNATIONAL [...] Panel Reviewed date:12/24/2024 09:36:04 AM Interpretation: Performing Lab:[address] [address] Notes/Report: Bilirubin Total 0.9 0.0-1.0 mg/dL Bilirubin Direct 0.4 0.0-0.5 mg/dL Aspartate Amino Transferase 133 5-37 U/L Alanine Aminotransferase 53 0-40 U/L Total Protein 7.7 6.5-8.0 g/dL Albumin Level 3.0 3.5-5.0 g/dL Alkaline Phosphatase 154 39-117 U/L Basic Metabolic Panel Reviewed date:12/24/2024 09:35:49 AM Interpretation: Performing Lab:[address] [address] Notes/Report: Sodium 136 135-145 mmol/L Potassium 4.3 [...] Phosphorus Reviewed date:12/24/2024 09:35:26 AM Interpretation: Performing Lab:[facility], [address] [place] [phone] Notes/Report: Phosphorus 5.4 2.7-4.5 mg/dL Magnesium Reviewed date:12/24/2024 09:35:02 AM Interpretation: Performing Lab:[facility], [address] [place] [phone] Notes/Report: Magnesium 1.7 1.6-2.6 mg/dL Lipase Reviewed date:12/24/2024 09:34:54 AM Interpretation: Performing Lab:[facility], [address] [place] [phone] Notes/Report: Lipase 237 8-78 U/L CT abdomen pelvis w con Reviewed date:12/26/2024 12:57:44 AM Interpretation: Performing Lab: Notes/Report: [address] [place] [address] CT Scan Report Signed Patient: Chato Dickinson MR#: [id number] : 1995 Acct:[id number] Age/Sex: 29 / M ADM Date: 12/08/24 Loc: HO.S3 362-[address]: Perla Childs NP Ordering Physician: Syed Eisenberg MD Date of Service: 12/23/24 Procedure(s): CT abdomen pelvis w IV con Accession Number(s): [id number] cc: Physician,Unknown ; Syed Eisenberg MD Report Number: [id number]: Total DLP = 1706.00 mGy-cm CLINICAL HISTORY: [...] MD in OV> 12/24/2413 DD/ TD/TT: 12/24/2412 [employer]: Luis Miguel Gene PCR Reviewed date:12/24/2024 06:33:34 PM Interpretation: Performing Lab:[facility], [address] [place] [phone] Notes/Report: CDiff Gene PCR NEGATIVE Negative If C. difficile strongly suspected despite one negative test, a second test may be sent vs. empiric treatment for C. difficile infection. Hold Lav - Possible Hematolo gy Reviewed date:12/26/2024 11:21:10 PM Interpretation: Performing Lab:[facility], [address] [place] [phone] Notes/Report: Hold Lav - Possible Hematology SEE NOTE Specimen will be held untested for 8 hours. Call Hematology if testing is desired. Prothrombin Time INR Reviewed date:12/26/2024 01:36:40 PM Interpretation: Performing Lab:[facility], [address] [place] [phone] Notes/Report: Prothrombin Time 17.2 10.9-12.4 SEC INTERNATIONAL [...] Panel Reviewed date:12/26/2024 01:37:31 PM Interpretation: Performing Lab:[facility], [address] [place] [phone] Notes/Report: Bilirubin Total 0.7 0.0-1.0 mg/dL Bilirubin Direct 0.4 0.0-0.5 mg/dL Aspartate Amino Transferase 107 5-37 U/L Alanine Aminotransferase 55 0-40 U/L Total Protein 8.0 6.5-8.0 g/dL Albumin Level 3.1 3.5-5.0 g/dL Alkaline Phosphatase 146 39-117 U/L Basic Metabolic Panel Reviewed date:12/26/2024 11:20:53 PM Interpretation: Performing Lab:[facility], [address] [place] [phone] Notes/Report: Sodium 136 135-145 mmol/L Potassium 4.3 [...] Phosphorus Reviewed date:12/26/2024 11:20:22 PM Interpretation: Performing Lab:[address] [phone] Notes/Report: Phosphorus 5.1 2.7-4.5 mg/dL Magnesium Reviewed date:12/26/2024 11:20:13 PM Interpretation: Performing Lab:[facility], [address] [place] [phone] Notes/Report: Magnesium 1.8 1.6-2.6 mg/dL CT abdomen pelvis w con Reviewed date:12/29/2024 02:36:22 PM Interpretation: Performing Lab: Notes/Report: [address] [address] [address] Scan Report Signed Patient: Chato Dickinson MR#: [id number] : 1995 Acct:[id number] Age/Sex: 29 / M ADM Date: 12/08/24 Loc: HO.S3 362-[address]: Perla Childs NP Ordering Physician: Syed Eisenberg MD Date of Service: 12/28/24 Procedure(s): CT abdomen pelvis w IV con Accession Number(s): [id number] cc: Physician,Unknown ; Syed Eisenberg MD Report Number: [id number]: Total DLP = 1283.00 mGy-cm CLINICAL HISTORY: [...] 12/29/24 1017 DD/ 1016 TD/TT: 12/29/24 1016 [employer]: Complete Blood Count Auto Di ff Reviewed date:03/30/2025 05:49:44 PM Interpretation: Performing Lab:[facility], [address] [place] [phone] Notes/Report: White Blood Count 3.8 4.8-10.8 X10*3/uL Red Blood Count 5.37 4.60-5.80 X10*6/uL Hemoglobin 13.6 14.0-18.0 g/dl Hematocrit 40.3 42.0-52.0 % Mean Corpuscular Volume 75.0 80.0-98.0 fL Mean Corpuscular Hemoglobin 25.3 27.0-33.0 pg Mean Corpuscular HGB Conc 33.7 31.0-36.0 g/dl Red Cell Distribution Width 15.4 11.0-16.0 % Platelet Count 265 160-400 X10*3/uL Mean Platelet Volume 9.4 9.4-12.4 fL Neutrophils Percent Auto 38.9 45-73 % Imm Gran Pct Auto 0.3 0.0-0.4 % Lymphocytes Percent Auto 45.6 20-40 % Monocytes Percent Auto 11.5 2-11 % Eosinophils Percent Auto 2.4 0-4 % Basophils Percent Auto 1.3 0-2 % NRBC Pct Auto 0.0 0.0-0.2 /100WBC Neutrophils Absolute Auto 1.5 2.0-8.3 x10*3/u L Imm Gran Abs Auto 0.01 0.00-0.03 X10*3/uL Lymphocytes Absolute Auto 1.7 1.2-4.9 X10*3/u L Monocytes Absolute Auto 0.4 0.1-1.2 X10*3/uL Eosinophils Absolute Auto 0.1 0.0-0.4 X10*3/u L Basophils Absolute Auto 0.1 0.0-0.2 X10*3/uL NRBC Abs Auto 0.000 0.0-0.012 X10*3/uL Liver Panel Reviewed date:03/30/2025 05:49:24 PM Interpretation: Performing Lab:[address] [phone] Notes/Report: Bilirubin Total 0.7 0.0-1.0 mg/dL Bilirubin Direct 0.2 0.0-0.5 mg/dL Aspartate Amino Transferase 22 5-37 U/L Alanine Aminotransferase 24 0-40 U/L Total Protein 7.3 6.5-8.0 g/dL Albumin Level 4.3 3.5-5.0 g/dL Alkaline Phosphatase 88 39-117 U/L Basic Metabolic Panel Reviewed date:03/30/2025 05:49:14 PM Interpretation: Performing Lab:[address] [address] Notes/Report: Sodium 139 135-145 mmol/L Potassium 4.1 3.3-5.1 mmol/L Chloride 108 96-108 mmol/L Carbon Dioxide 28 22-29 mmol/L Anion Gap 7 12-20 Blood Urea Nitrogen 13 9-16 mg/dL Creatinine 0.78 0.5-1.4 mg/dL Estimated Glomerular Filt Rate > 60 Chronic Kidney Disease: Estimated GFR < 60 mL/min/1.73m2 Severe Kidney Disease: Estimated GFR < 15 mL/min/1.73m2 Glucose Random 125 60-115 mg/dL Calcium 9.2 8.4-10.2 mg/dL Triglycerides Reviewed date:03/30/2025 05:48:55 PM Interpretation: Performing Lab:[address] [address] Notes/Report: Triglycerides 138 <150 mg/dL Desirable Triglyceride: less than 150 mg/dL Borderline High Triglyceride 150-199 mg/dL High Triglyceride: 200-499 mg/dL Very High Triglyceride: greater than or equal to 5OO mg/dL Amylase Reviewed date:03/30/2025 05:48:26 PM Interpretation: Performing Lab:[facility], [address] [place] [phone] Notes/Report: Amylase 86 28-100 U/L Lipase Reviewed date:03/30/2025 05:48:19 PM Interpretation: Performing Lab:[facility], [address] [place] [phone] Notes/Report: Lipase 35 8-78 U/L Reason For Referral Reason abdominal pain Referring Provider First Name Radha Referring Provider Last Name Lawrence Referred Organization [facility] Referred Provider Syed Eisenberg Referred [address],[address], Referred Provider Specialty Gastroentero logy Referral Priority Routine Problems Problem Type SNOMED Code ICD Code Onset Dates Problem Status W/U Status Risk Notes Problem Pancreatitis (38542983) Pancreatitis (K85.90) Active confirmed Problem Pancreatic pseudocyst (519089170) Pancreatic pseudocyst (K86.3) Active confirmed Encounters Encounter Location Date Provider Diagnosis [facility] [address] [place] [phone] 01/09/2025 Syed Eisenberg Pancreatitis K85.90 and Pancreatic pseudocyst K86.3 [facility] [address] [place] [phone] 02/27/2025 Syed Eisenberg [facility] [address] [place] [phone] 03/12/2025 Syed Eisenberg Pancreatitis K85.90 and Pancreatic pseudocyst K86.3 [facility] [address] [place] [phone] 03/13/2025 Syed Eisenberg Assessments Encounter Date Diagnosis [...] Provider Name:Syed Eisenberg , 05/27/2025 02:00:00 PM, [address] [place] [address], [address], [place], [address], Insurance Providers Payer Name Payer Address Payer Phone Subscriber Number Group Number Insured Name Patient Relationship to Insured Coverage Start Date Coverage End Date [facility] [address] [place] [phone] [id number] CHATO DICKINSON Self - patient is the insured
--- OUTSIDE RECORDS SUMMARY | 2025-04-22 15:23 | XMS_ITS | Encounter Summary ---
Author Organization [employer] Address [address] [place] [address] Care Team Providers Care Director Of Institutional Giving Name Role Phone Radha Bravo MD Primary Care Provider [phone] Encounter Details Date Type Department Care Team ([facility] st Contact Info) Description 04/18/2025 Telephone C OPTOMETRY [address] [place] [address] Porter, Hailey, OD [address] [place] [address] Social History Tobacco Use Types Packs/Day Years [...] your housing situation today? I have katerina maine 02/18/[address] you li [...] encounter Miscellaneous Notes * Telephone Encounter - Angela Martinez - 04/18/2025 11:40 AM EDT called pt to book OCT apt pt stated that he doesnt have no problem with his vision and that he doesnt need any apts at the moment. documented in this encounter Plan of Treatment Upcoming Encounters Date Type Department Care Team (Late st Contact Info) Description 05/09/2025 2:15 PM EDT Office Visit [facility] [address] [place] [phone] Radha Bravo MD [address] [place] [address] documented as of this encounter Visit Diagnoses Not on filedocumented in this encounter Additional Health Concerns Assessment Noted Time PHQ-9 Depression Total Score: 2 02/19/20 25 11:58 AM EDT documented as of this encounter Care Teams Director Of Institutional Giving Relationship Specialty Start Date End Date Radha Bravo MD [address] [place] [id number] PCP - General Family Medicine 03/08/21 documented as of this encounter
--- OUTSIDE RECORDS SUMMARY | 2025-04-22 15:23 | XMS_ITS | Clinical Summary ---
Author Organization [employer] Address [address] [facility] 7[address] [place] [address] Care Team Providers Care Patient Care Director Name Role Phone Radha Bravo MD Primary [...] 5 Active Blood Glucose Monitoring Suppl (FreeStyle Codorus Lite) w/Device kit Use to test blood sugar 3 times daily 1 kit 5 Active Continuous Glucose Verification Engineer (FreeStyle Veronica 3 [place]) device 1 each Once per day. 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 OPTOMETRY [address] [place] [address] Hailey Buenrostro, OD 04/14/[address] [facility] MEDICINE [address] [place] [address] Marcelle Shaw, 03/28/2025 Orders Only GENERIC EXTERNAL DATA DEPARTMENT Provider, Generic External Data 03/17/[address] [facility] MEDICINE [address] [place] [address] Radha Bravo MD Letter for School/Work 03/14/[address] [facility] MEDICINE [address] [place] [address] Marcelle Shaw, 03/14/[address] [facility] MEDICINE [address] [place] [address] Radha Bravo MD Referral 03/12/2025 Population Health Risk Score [facility] (C3) Department [address] [phone] Provider, Population Health Generic 03/11/[address] [facility] MEDICINE [address] [place] [address] Kathy Ayoub RN Results 03/07/2025 1:45 PM EDT Office Visit [facility] MEDICINE [address] [place] [address] Radha Bravo MD History of pancreatitis (Primary [...] Generic External Data 03/07/2025 Travel 03/05/[address] [address] Radha Bravo MD chart prep 03/05/2025 Travel 03/03/2025 Orders Only [address] [address] Marcelle Shaw DO Hypertriglyceridemia (Primary Dx) 02/27/2025 Patient Outreach [address] [address] Radha Bravo MD Pre-visit Planning (SDOH screening completed on 02/18/2025) 02/27/[address] [address] Radha Bravo MD Letter for School/Work 02/20/2025 Orders Only [facility] WALK-IN CENTER [address] [place] [address] Marcelle Shaw DO 02/20/2025 Orders Only [address] [address] Juve Monet, PharmD 02/18/2025 11:15 AM EDT Office Visit [address] [address] Marcelle Shaw DO Other acute pancreatitis, unspecified complication status (Primary Dx); Pancreatic pseudocyst; Hypertriglyceridemia; Type 2 diabetes mellitus without complication, without long-term current use of insulin ([facility]) 02/17/2025 Travel 02/17/[address] [address] Radha Bravo MD Chart Prep 02/04/[address] [address] Kathy Ayoub, RN provider out 01/29/[address] [address] Radha Bravo MD Nurse Triage 01/27/[address] [address] Radha Bravo MD Chart Prep from Last 3 Months Immunizations Immunization Administration [...] is your housing situation today? I have [place] 02/18/[address] you [...] Description 05/09/2025 2:15 PM EDT Office Visit [facility] MEDICINE [address] [place], [place] [phone] Radha Bravo MD [address] [place], [place] [phone] Health Maintenance Due Date Last Done Comments [...] Procedure Name Priority Date/Time Associated Diagnosis Comments LIPASE Routine 03/28/2025 12:16 PM EDT AMYLASE Routine 03/28/2025 12:16 PM EDT TRIGLYCERIDES Routine 03/28/2025 12:16 PM EDT BASIC METABOLIC PANEL Routine 03/28/2025 12:16 PM EDT HEPATIC FUNCTION PANEL Routine 03/28/2025 12:16 PM EDT CBC WITH AUTO DIFFERENTIAL Routine 03/28/2025 12:16 PM EDT LIPID PANEL, STANDARD Routine 03/07/2025 [...] without long-term current use of insulin (CMS/HCC) LIPASE Routine 03/07/2025 2:26 PM EDT Other [...] complication, without long-term current use of insulin ([facility]) STREP A NUCLEIC ACID Routine 01/28/2025 8:35 AM EDT SARS COV2/INFLUENZA A/B AND RSV RNA QL NAAT Routine 01/28/2025 8:35 AM EDT ZZZ HISTORICAL HEPATITIS C AB W/REFL TO HCV RNA, QN, PCR Routine 01/14/2021 3:46 PM EDT HIV 1/2 ANTIGEN/ANTIBODY, FOURTH GENERATION W/RFL Routine 01/14/2021 3:46 PM EDT from Last 3 Months or Most Recently Relevant to Health Maintenance Results * (ABNORMAL) CBC auto differential (03/28/2025 12:16 PM EDT) Only the most recent of2 resultswithin the time period is included. White Blood Count 3.8(L) 4.8 - 10.8 X10*3/uL [facility] Red Blood Count 5.37 4.60 - 5.80 X10*6/uL [facility] Hemoglobin 13.6(L) 14.0 - 18.0 g/dl [facility] Hematocrit 40.3(L) 42.0 - 52.0 % [facility] Mean Corpuscular Volume 75.0(L) 80.0 - 98.0 fL [facility] Mean Corpuscular Hemoglobin 25.3(L) 27.0 - 33.0 pg [facility] Mean Corpuscular HGB Conc 33.7 31.0 - 36.0 g/dl [facility] Red Cell Distribution Width 15.4 11.0 - 16.0 % [facility] Platelet Count 265 160 - 400 X10*3/uL [facility] Mean Platelet Volume 9.4 9.4 - 12.4 fL [facility] Neutrophils Percent Auto 38.9(L) 45 - 73 % [facility] Imm Gran Pct Auto 0.3 0.0 - 0.4 % [facility] Lymphocytes Percent Auto 45.6(H) 20 - 40 % [facility] Monocytes Percent Auto 11.5(H) 2 - 11 % [facility] Eosinophils Percent Auto 2.4 0 - 4 % [facility] Basophils Percent Auto 1.3 0 - 2 % [facility] NRBC Pct Auto 0.0 0.0 - 0.2 /100WBC [facility] Neutrophils Absolute Auto 1.5(L) 2.0 - 8.3 x10*3/uL [facility] Imm Gran Abs Auto 0.01 0.00 - 0.03 X10*3/uL [facility] Lymphocytes Absolute Auto 1.7 1.2 - 4.9 X10*3/uL [facility] Monocytes Absolute Auto 0.4 0.1 - 1.2 X10*3/uL [facility] Eosinophils Absolute Auto 0.1 0.0 - 0.4 X10*3/uL [facility] Basophils Absolute Auto 0.1 0.0 - 0.2 X10*3/uL [facility] NRBC Abs Auto 0.000 0.0 - 0.012 X10*3/uL [facility] 03/28/2025 12:1 6 PM EDT 03/28/2025 12:16 PM EDT us Generic External Data Provider LAB BLOOD ORDERAB LES Final Result [facility] [address] [place] [address], [place] [phone] * Triglycerides (03/28/2025 12:16 PM EDT) Triglycerides 138 <150 mg/dL [facility] Comment:Desirable Triglyceri de: less than 150 mg/dLBorderline High Triglyceride 150-199 mg/dLHigh Triglyceride: 200-499 mg/dLVery High Triglyceride: greater than or equal to 5OO mg/dL 03/28/2025 12:1 6 PM EDT 03/28/2025 12:16 PM EDT Generic External Data Provider LAB BLOOD ORDERAB LES Final Result Performing Organization Address [facility] Co de Phone Number [facility] [address] [place] [phone] * Lipase (03/28/2025 12:16 PM EDT) Only the most recent of3 resultswithin the time period is included. Lipase 35 8 - 78 U/L [facility] 03/28/2025 12:1 6 PM EDT 03/28/2025 12:16 PM EDT Generic External Data Provider LAB BLOOD ORDERAB LES Final Result Performing Organization Address [facility] de Phone Number [facility] [address] [place] [phone] * Amylase (03/28/2025 12:16 PM EDT) Only the most recent of2 resultswithin the time period is included. Amylase 86 28 - 100 U/L [facility] 03/28/2025 12:1 6 PM EDT 03/28/2025 12:16 PM EDT Generic External Data Provider LAB BLOOD ORDERAB LES Final Result Performing Organization Address [facility] de Phone Number [facility] [address] [place] [phone] * Hepatic Function Panel (03/28/2025 12:16 PM EDT) Only the most recent of2 resultswithin the time period is included. Bilirubin, Total 0.7 0.0 - 1.0 mg/dL [facility] Bilirubin, Direct 0.2 0.0 - 0.5 mg/dL [facility] Aspartate Amino Transferase 22 5 - 37 U/L [facility] Alanine Aminotransferase 24 0 - 40 U/L [facility] Total Protein 7.3 6.5 - 8.0 g/dL [facility] Albumin Level 4.3 3.5 - 5.0 g/dL [facility] Alkaline Phosphatase 88 39 - 117 U/L [facility] 03/28/2025 12:1 6 PM EDT 03/28/2025 12:16 PM EDT us Generic External Data Provider LAB BLOOD ORDERAB LES Final Result [facility] [address] [place] [phone] * (ABNORMAL) Basic Metabolic Panel (03/28/2025 12:16 PM EDT) Only the most recent of2 resultswithin the time period is included. Sodium 139 135 - 145 mmol/L [facility] Potassium 4.1 3.3 - 5.1 mmol/L [facility] Chloride 108 96 - 108 mmol/L [facility] Carbon Dioxide 28 22 - 29 mmol/L [facility] Anion Gap 7(L) 12 - 20 [facility] Urea Nitrogen (BUN) 13 9 - 16 mg/dL [facility] Creatinine, Serum 0.78 0.5 - 1.4 mg/dL [facility] Estimated Glomerular Filt Rate >60 [facility] Comment:Chronic Kidney Disea se: Estimated GFR < 60 mL/min/[id number] Kidney Disease: Estimated GFR < 15 mL/min/1.73m2 Glucose 125(H) 60 - 115 mg/dL [facility] Calcium 9.2 8.4 - 10.2 mg/dL [facility] 03/28/2025 12:1 6 PM EDT 03/28/2025 12:16 PM EDT us Generic External Data Provider LAB BLOOD ORDERAB LES Final Result Performing Organization Address [facility]/ZIP Co de Phone Number [facility] [address] [place] [phone] * Albumin, Random Urine W/Creatinine (03/07/2025 2:26 PM EDT) Creatinine, Urine 178.97 mg/dL [facility] Microalbumin Urine 9.0 mg/L [facility] Microalbum Creatinine Ratio Ur 5.0 <30 ug/mg cr [facility] Comment:Albumin/Creatinine R atio Reference Ranges: Normal: < 30 ug/mg creatinine Microalbuminuria: 30 - 300 ug/mg creatinineClinical Albuminuria: > 300 ug/mg creatinine Urine (Urine, Random) 03/07/2025 2:26 PM EDT 03/07/2025 4:10 PM EDT Marcelle Shaw DO LAB URINE ORDERABLES Final R esult Performing Organization Address [facility] Co de Phone Number [facility] [address] [place] [phone] * (ABNORMAL) Hemoglobin A1c (03/07/2025 2:26 PM EDT) Hemoglobin A1c 6.5(H) <6.0 % [facility] Comment:Hemoglobin A1C Refer ence Range Adults: 4.8 - 6.0 % Non diabetic: < 6.0 % Goal: < 7.0 %Additional Action Suggested: > 8.0 %Note: Hemoglobin A1c results are invalid for patients with abnormal amounts of HbF. Blood transfusions may impact the HbA1c concentration in the patient sample. Estimated Average Glucose 140 mg/dL [facility] Comment:eAG = Estimated ave rage glucose which is %A1C expressed asaverage glucose, using the formula of the S2W-IdijygiPrzawix Glucose study (ADAG), Diabetes Care, Vol.31,#8,2007 Blood Venous blood specimen / Unknown 03/07/2025 2:26 PM EDT 03/07/2025 5:25 PM EDT us Marcelle Shaw DO LAB BLOOD ORDERABLES Final R esult [facility] [address] [place] [phone] * (ABNORMAL) Lipid Panel, Standard (03/07/2025 2:26 PM EDT) Only the most recent of2 resultswithin the time period is included. Triglycerides 215(H) <150 mg/dL [facility] Comment:Desirable Triglyceri de: less than 150 mg/dLBorderline High Triglyceride 150-199 mg/dLHigh Triglyceride: 200-499 mg/dLVery High Triglyceride: greater than or equal to 5OO mg/dL Cholesterol 122 <200 mg/dL [facility] Comment:Desirable Cholestero l: less than 200 mg/dLBorderline High Cholesterol: 200-239 mg/dLHigh Cholesterol: greater than 239 mg/dL LDL Cholesterol Calculated 56 <100 mg/dL [facility] Comment:Desirable LDL: less than 100 mg/dLNear Optimal/Above Optimal LDL: 110- 129 mg/dLBorderline High LDL: 130-159 mg/dLHigh LDL: 160-189 mg/dLVery High LDL: greater than or equal to 190 mg/dL HDL Cholesterol 23(L) >40 mg/dL [facility] Comment:Desirable HDL: great er than 40 mg/dL Note: This HDL assay may give artificially low results in patients with liver disease. 03/07/2025 2:26 PM EDT 03/07/2025 5:25 PM EDT us Generic External Data Provider LAB BLOOD ORDERAB LES Final Result [facility] [address] [place] [phone] * (ABNORMAL) Comprehensive Metabolic Panel (03/07/2025 2:26 PM EDT) Sodium 140 135 - 145 mmol/L [facility] Potassium 4.1 3.3 - 5.1 mmol/L [facility] Chloride 106 96 - 108 mmol/L [facility] Carbon Dioxide 25 22 - 29 mmol/L [facility] Anion Gap 13 12 - 20 [facility] Urea Nitrogen (BUN) 16 9 - 16 mg/dL [facility] Creatinine, Serum 0.95 0.5 - 1.4 mg/dL [facility] Estimated Glomerular Filt Rate >60 [facility] Comment:Chronic Kidney Disea se: Estimated GFR < 60 mL/min/[id number] Kidney Disease: Estimated GFR < 15 mL/min/1.73m2 Glucose 191(H) 60 - 115 mg/dL [facility] Calcium 9.6 8.4 - 10.2 mg/dL [facility] Bilirubin, Total 0.6 0.0 - 1.0 mg/dL [facility] Aspartate Amino Transferase 30 5 - 37 U/L [facility] Alanine Aminotransferase 22 0 - 40 U/L [facility] Total Protein 7.9 6.5 - 8.0 g/dL [facility] Albumin Level 4.4 3.5 - 5.0 g/dL [facility] Alkaline Phosphatase 75 39 - 117 U/L [facility] 03/07/2025 2:26 PM EDT 03/07/2025 5:25 PM EDT us Generic External Data Provider LAB BLOOD ORDERAB LES Final Result [facility] [address] [place] [phone] * (ABNORMAL) POCT HGB A1C (03/07/2025 1:49 PM EDT) Hemoglobin A1C 6.2(A) 4.0 - 5.7 % QC Media Lot # [id number] Lot# Expiration Date Blood 03/07/2025 1:49 PM EDT Radha Bravo MD POINT OF CARE TEST ENTER/EDIT ORDERABLES Final Result * POCT Glucose (03/07/2025 1:49 PM EDT) Pathologist [facility] Glucose Blood, POC 190 60 - 200 mg/dL QC Media Lot # [id number] Lot# Expiration Date Blood Capillary blood specimen / Unknown 03/07/2025 1:49 PM EDT Radha Bravo MD POINT OF CARE TEST ENTER/EDIT ORDERABLES Final Result * Strep A Nucleic Acid (01/28/2025 8:35 AM EDT) Pathologist [facility] IDNOW SERIAL# [id number] [facility] Strep A Nucleic Acid Negative Negative [facility] Comment:All test results mus t [...] LAB MICROBIOLOGY - GENERAL ORDERABLES Final Result [facility] [address] [place] [phone] * (ABNORMAL) SARS-CoV-2 RNA, Influenza A/B, and RSV RNA, Ql NAAT (01/28/2025 8:35 AM EDT) Pathologist [facility] Influenza A PCR NEGATIVE Negative [facility] Influenza B PCR NEGATIVE Negative [facility] Resp Syncy Virus RNA Qual PCR NEGATIVE Negative [facility] SARS COV2 PCR POSITIVE(A) Negative [facility] Comment:All test results mus t [...] use by authorized laboratories.Testing performed on the a[employer] GeneXpert utilizingreal-time RT-PCR.All SARS CoV2 and positive influenza A/B results arereported to [facility]. 01/28/2025 8:35 AM EDT 01/28/2025 8:39 AM EDT Generic External Data Provider LAB MICROBIOLOGY - GENERAL ORDERABLES Final Result Performing Organization Address [facility] Co de Phone Number [facility] [address] [place] [address] [phone] * HEPATITIS C AB W/REFL TO HCV RNA, QN, PCR (01/14/2021 3:46 PM EDT) Pathologist [facility] HEPATITIS C ANTIBODY NON-REACT CORY NON-REACT CORY [facility] INDEX 0.01 <1.00 [facility] Comment: HCV antibody was non-reactive. There is no laboratory evidence of HCV infection. In most cases, no further action is required. However, if recent HCV exposure is suspected, a test for HCV RNA (test code 83967) is suggested. For additional information please refer to http://education.GroupVisual.io.Questli/faq/IAA80h0 (This link is being provided for informational/ educational purposes only.) 01/14/2021 3:46 PM EDT Dianna Pierce MD HISTORICAL/NON ORDERABLE LABS Final Result Performing Organization Address City/[facility]/ZIP Co de Phone Number [facility] [address] * HIV 1/2 ANTIGEN/ANTIBODY,FOURTH GENERATION W/RFL (01/14/2021 3:46 PM EDT) HIV-1/2 ANTIGEN AND ANTIBODIES, 4TH GENERATION W/ REFLEX NON-REACT CORY NON-REACT CORY [facility] Comment: HIV-1 antigen and HIV-1/HIV-2 [...] purpose. For additional information please refer to http://education.Fiber Options/faq/TFO647 (This link is being provided for informational/ educational purposes only.) The performance of this assay has not been clinically validated in patients less than 2 years old. 01/14/2021 3:46 PM EDT us Dianna Pierce MD LAB BLOOD ORDERABLES Final Re sult [facility] [address] from Last 3 Months or Most Recently Relevant to Health Maintenance Insurance [employer] [facility] C3 Care Teams Patient Care Director Relationship Specialty Start Date End Date Radha Bravo MD [address] [place] [phone] PCP - General Family Medicine 03/08/21
--- OUTSIDE RECORDS SUMMARY | 2025-04-22 15:23 | XMS_ITS | Encounter Summary ---
Author Organization [employer] Address [address] [facility] [address] [place] [address] Care Team Providers Care Yardage Caller Name Role Phone Radha Bravo MD Primary Care Provider [phone] Reason for Visit * Reason Onset Date Comments Med Refill 04/14/2025 Encounter Details Date Type Department Care Team (Late st Contact Info) Description 04/14/2025 Refill [facility] [address] [place], [place] [phone] Marcelle Shaw DO [address] [place], [place] [phone] Social History Tobacco Use Types Packs/Day Years [...] Description 05/09/2025 2:15 PM EDT Office Visit [facility] [address] [place] [address] Radha Bravo MD [address] [place] [address] documented as of this encounter Visit Diagnoses Not on filedocumented in this encounter Additional Health Concerns Assessment Noted Time PHQ-9 Depression Total Score: 2 02/19/20 25 11:58 AM EDT documented as of this encounter Care Teams Yardage Caller Relationship Specialty Start Date End Date Radha Bravo MD [address] [place] [phone] PCP - General Family Medicine 03/08/21 documented as of this encounter
[2025-04-22] MEDS: iohexoL 350 MG/ML 100 ML INFUS..BTL IV (15:33)
[2025-04-22] MEDS: Barium Sulfate Oral (Vanilla) 450 ML ORAL.SUSP 900 ML PO (15:34)
== END 2025-04-22 12:45 | disposition home or self-care (01) ==
LOC: HO.CT 12:44
PROVIDERS: PCP General Practice; Visit Provider Internal Medicine
DX: K85.90 Acute pancreatitis without necrosis or infection, unspecified (principal); K86.3 Pseudocyst of pancreas
CPT/HCPCS: 74177; Q9967

== ENCOUNTER → 2025-04-22 15:03 | Outpatient (BNV) | payer MEDICAID, SELFPAY | PROVIDERS: PCP General Practice; Visit Provider Radiology Diagnostic Radiology | DX: K76.0 Fatty (change of) liver, not elsewhere classified (principal); K86.1 Other chronic pancreatitis | CPT/HCPCS: 74177 ==

== ENCOUNTER 2025-04-25 11:54 | Outpatient (REF) | payer MEDICAID, SELFPAY ==
--- OUTSIDE RECORDS SUMMARY | 2025-04-25 14:43 | XMS_ITS | Data Portability ---
Author Organization [place] - [facility], Allergy Address [address] [address] Care Team Providers Care Information Systems Auditor Name Role Phone MICHELA SULLIVAN Primary Care Provider MICHELA SULLIVAN Referring Provider [phone] Assessment Encounter Date Assessment Date Assessment LastModified [...] a tumor is associated with severe morbidity. [email or web address] Not available 05/14/2024 12:52:42 Plan of Treatment Reminders Order Date Submit Date Provider Last Modified By Organization Details Last Modified Time Details Appointments None recorded. Lab None recorded. Referral None recorded. Procedures None recorded. Surgeries None recorded. Imaging MRI, brain + internal auditory canal, w/wo contrast - MRI, BRAIN + INTERNAL AUDITORY CANAL, W/WO CONTRAST [address] [facility] ([facility]), [address] [place], [address], 14:06:23 Medication Orders None recorded. Patient TargetsNo [...] stem, w/wo contr ast [facility]- [facility] Access ion Number : [id number] [place] t Name: Chato Sinha Record Number : [id number] Date of : 1994 Date of Exam: 2023 Referr ing Physic darlene: Mynor Perera re Ear Nose [address] [place] [address] Exam: MR Brain (C-/C+ ) CPT 35481 Room Descri ption: Titus Siem Espr 1.5 HISTOR Y: Erosiv e [...] onical ly Signed By: Brent Arteaga MD [email or web address] [facility] ([facility]) [address] [facility], [place], [address], 05/21/2024 12:56:02 Result Notes Documentation Provider Name and Address Organization Details Recorded Time Mri, Brain + Brain Stem, W/wo Contrast : [facility] Accession Number: [id number] Patient Name: Chato Kaur Date of : 1995 Date of Exam: 05-16-2024 Referring Physician: Darshan Perera Ear Nose [address] [place] [address] Exam: MR Brain (C-/C+) CPT 55888 Room Description: [facility] 1.5 HISTORY: Erosive tumor on CT. Glomus [...] Electronically Signed By: Brent PERERA MD [address], [address], 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 - [facility] 20:50:59 Conductive hearing loss of left ear 3009921411 Active 2023 SHANKAR PETERSON [address],[place] [address], [place], [address], [facility] 11:29:58 Left conductive hearing loss 7591598422147 Active 2023 SHANKAR PETERSON [address],[place] [address], [place], [address], [facility] 11:30:59 Subjective pulsatile tinnitus of left ear 0808504984188 103 Active 2023 DARSHAN PERERA MD 100 [facility],[place] [address], [place], [address], [facility] 12:51:33 Problem Notes None recorded. Procedures Surgical History Date Name Laterality Status Provider Name and Address Organization Details Recorded Time Comp Audio with Tymps & Reflexes - 66212 & 97491 completed ERASMO SR 100 [facility],[place] [address], [place], [address], [facility] 05/14/2024 11:29:29 Imaging Results None recorded. Procedure Notes None recorded. Medical Equipment None Reported. Allergies Allergen ID Allergen Name Allergen Category Reaction Reaction Severity Criticality Documentation Date Start Date Code Code System Note Provider Name and Address Organization Details Recorded Time 100868 metformin medicatio n Not available Not available Not available 05/14/2024 6809 RxNorm Nini amin [facility] 11:07:04 Medications Name Sig Start Date Stop [...] Available Not Available FreeStyle Lite Meter kit [place] CHECK BLOOD SUGAR THREE TIMES A DAY [...] Available No t Available FreeStyle Veronica 3 Cascade Locks USE DIRECTED TO TEST BLOOD SUGAR EVERY DAY active Not Available Not Available No t Available FreeStyle Veronica 3 Plus Sensor device APPLY 1 SENSOR TOPICALLY EVERY 15 DAYS. USE DIRECTED TO TEST BLOOD SUGAR active Not Available Not Available No t Available Vitals Date Recorded Body height Body weight Provider Name and Address Organization Details Last Updated DateTime 05/14/2024 190.5 cm 314083.56 g Nini Dan [place] - [facility] 05/14/2024 11:09:49 Social History None recorded. Functional Status None recorded. Mental Status None recorded. Family History Nothing Reported. Medical History Condition Response Diabetes Y Hypertension Y Asthma Y High Cholesterol Y Past Encounters Encounter ID Performer Location Encounter Start Date Encounter Closed Date Diagnosis/Indication Diagnosis SNOMED-CT Code Diagnosis ICD10 Code Diagnosis IMO Codes Diagnosis Note [id number] DARSHAN PERERA MD [facility] [address] [address] 05/14/2024 10:59:34 05/14/2024 12:11:43 Neoplasm of glomus jugulare 886769145 D49.7 Left condu ctive hearing loss 3788851071 107 H90.12 Audiologic al evaluation results: 05/14/2024 [...] tinnitus. Subjective pulsatile tinnitus of left ear 4503396674 075281 H93.A2 Health Concerns Section Related Observation LastModified by Organization Detai ls LastModified Time None Recorded Concern Status LastModified by Organization Details LastModified Time None Recorded Advance Directives Directive None Recorded Payers Insurance Date Sequence Insurance Name Policy Number Policy Suarez Covered Member ID Suarez Member ID Guarantor Name 02/27/2025 1 [facility] PLAN (MEDICAID HMO) [id number] Chato Woodard [id number] Chato Kaur Notes Date Note Type [...] a glomus jugulare tumor. Patient referred to [facility] who redirected the consult to me. Patient notes occasional pulsatile tinnitus in the left ear for the past few months. He gets chronic daily headaches primarily centered around the right occiput.. He has noticed no changes in vocal quality or strength. No troubles with swallowing. Patient comes in today accompanied by his girlfriend who is helping with Thai translation. She would like to be the call or contact centre manager for future scheduling, and he is in agreement with this. DARSHAN PERERA MD [address] [place] [address], [place], [address], [place] - [facility] 05/14/2024 12:53:19
--- OUTSIDE RECORDS SUMMARY | 2025-04-25 14:43 | XMS_ITS | Clinical Summary ---
Author Organization [facility] Address [address] [place] [address] Phone Care Team Providers Care Tile Trimmer Name Role Phone Cinthya Briones MD Primary Care Provider [phone] Social History Tobacco Use Types Packs/Day Years [...] patient's age to complete this topic Insurance [facility] PLAN Care Teams Tile Trimmer Relationship Specialty Start Date End Date Cinthya Briones MD [address] [place] [address] Dr [place] [id number] PCP - General Internal Medicine 05/22/24
--- OUTSIDE RECORDS SUMMARY | 2025-04-25 14:43 | XMS_ITS | Encounter Summary ---
Author Organization [employer] Address [address] [facility] [address] [place] [address] Care Team Providers Care Plant Utility Person Name Role Phone Radha Bravo MD Primary Care Provider [phone] Reason for Visit * Reason Onset Date Comments Med Refill 04/14/2025 Encounter Details Date Type Department Care Team (Late st Contact Info) Description 04/14/2025 Refill [facility] [address] [place], [place] [phone] Marcelle Shaw DO [address] [place], [place] [phone] Social History Tobacco Use Types Packs/Day Years [...] 2:15 PM EDT Office Visit [facility] [address] [place] [address] Radha Bravo MD [address] [place] [address] documented as of this encounter Visit Diagnoses Not on filedocumented in this encounter Additional Health Concerns Assessment Noted Time PHQ-9 Depression Total Score: 2 02/19/20 25 11:58 AM EDT documented as of this encounter Care Teams Plant Utility Person Relationship Specialty Start Date End Date Radha Bravo MD [address] [place] [address] PCP - General Family Medicine 03/08/21 documented as of this encounter
--- OUTSIDE RECORDS SUMMARY | 2025-04-25 14:43 | XMS_ITS | Encounter Summary ---
Author Organization [employer] Address 75 [facility] [address] [place] [address] Care Team Providers Care Technician Telecommunication Systems Name Role Phone Radha Bravo MD Primary Care Provider [phone] Reason for Visit * Reason Onset Date Comments Med Refill 04/25/2025 Encounter Details Date Type Department Care Team (Late st Contact Info) Description 04/25/2025 Refill [facility] [address] [place] [address] Radha Bravo MD [address] [place] [address] Encounter for screening for respiratory tuberculosis Social History Tobacco Use Types Packs/Day Years [...] encounter Miscellaneous Notes * Telephone Encounter - Ghazala Perez RN - 04/25/2025 8:53 AM EDT Patient presented to red team FD for tspot order for employment. RN has placed order for tspot. Patient advised to go to the lab to have BW drawn at his convenience. Patient to f/u PRN. documented in this encounter Plan of Treatment Upcoming Encounters Date Type Department Care Team (Late st Contact Info) Description 05/09/2025 2:15 PM EDT Office Visit [facility] [address] [place] [address] Radha Bravo MD [address] [place] [address] Scheduled Orders Name Type Priority Associated Diagnoses Orde r Schedule T-SPOT .TB Lab Routine Encounter for screening for respiratory tuberculosis Expected: 04/25/2025 (Approximate), Expires: 04/25/2026 documented as of this encounter Visit Diagnoses Diagnosis Encounter for screening for respiratory tuberculosis documented in this encounter Additional Health Concerns Assessment Noted Time PHQ-9 Depression Total Score: 2 02/19/20 25 11:58 AM EDT documented as of this encounter Care Teams Technician Telecommunication Systems Relationship Specialty Start Date End Date Radha Bravo MD [address] [place] [address] PCP - General Family Medicine 03/08/21 documented as of this encounter
--- OUTSIDE RECORDS SUMMARY | 2025-04-25 14:43 | XMS_ITS | Encounter Summary ---
Author Organization [employer] Address 75 [facility] [address] [place] [address] Care Team Providers Care Radio Electronics Officer Name Role Phone Radha Bravo MD Primary Care Provider [phone] Encounter Details Date Type Department Care Team ([facility] st Contact Info) Description 04/23/2025 Orders Only [facility] [address] [place], [place] [phone] ProviderInes MD Social History Tobacco Use Types Packs/Day Years [...] 05/09/2025 2:15 PM EDT Office Visit [facility] [address] [place] [address] Radha Bravo MD [address] [place] [address] documented as of this encounter Procedures Procedure Name Priority Date/Time Associated Diagnosis Comments CT ABDOMEN PELVIS W CONTRAST Routine 04/22/2025 1:56 PM EDT documented in this encounter Results * CT Abdomen Pelvis w/ Contrast (04/22/2025 1:56 PM EDT) Anatomical Region Laterality Modality Body, Pelvis, Abdomen Computed T omography us Historical Provider MD JADE CT PROCEDURES Final R esult documented in this encounter Visit Diagnoses Not on filedocumented in this encounter Additional Health Concerns Assessment Noted Time PHQ-9 Depression Total Score: 2 02/19/20 25 11:58 AM EDT documented as of this encounter Care Teams Radio Electronics Officer Relationship Specialty Start Date End Date Radha Bravo MD [address] [place] [address] PCP - General Family Medicine 03/08/21 documented as of this encounter
--- OUTSIDE RECORDS SUMMARY | 2025-04-25 14:43 | XMS_ITS | Clinical Summary ---
Author Organization [employer] Address [address] [facility] [address] [place] [address] Care Team Providers Care Geophysical Prospecting Surveyor Name Role Phone Radha Bravo MD Primary Care Provider [phone] Allergies No known active allergies Medications atorvastatin [...] 5 Active Blood Glucose Monitoring Suppl (FreeStyle [place] Lite) w/Device kit Use to test blood sugar 3 times daily 1 kit 5 Active Continuous Glucose Sql Server Developer (FreeStyle Veronica 3 [place]) device 1 each Once per day. Use [...] Encounters Date Type Department Care Team Description 04/25/2025 Refill [facility] MEDICINE [address] [place] [address] Radha Bravo MD Encounter for screening for respiratory tuberculosis 04/23/2025 Orders Only [facility] [address] [place] [address] ProviderInes MD 04/18/2025 Telephone [facility] OPTOMETRY [address] [place] [address] Hailey Buenrostro, OD 04/14/2025 Refill [facility] MEDICINE [address] [place] [address] Marcelle Shaw DO 03/28/2025 Orders Only GENERIC EXTERNAL DATA DEPARTMENT Provider, Generic External Data 03/17/2025 Telephone [facility] MEDICINE [address] [place] [address] Radha Bravo MD Letter for School/Work 03/14/2025 Refill [facility] MEDICINE [address] [place] [address] Marcelle Shaw DO 03/14/2025 Telephone [facility] MEDICINE [address] [place] [address] Radha Bravo MD Referral 03/12/2025 Population Health Risk Score [facility] Department [address] [phone] Provider, Population Health Generic 03/11/2025 Telephone [facility] MEDICINE [address] [place] [address] Kathy Ayoub, RN Results 03/07/2025 1:45 PM EDT Office Visit [facility] MEDICINE [address] [place] [address] Radha Bravo MD History of pancreatitis (Primary [...] Generic External Data 03/07/2025 Travel 03/05/[address] [address] Radha Bravo MD chart prep 03/05/2025 Travel 03/03/2025 Orders Only [address] [address] Marcelle Shaw DO Hypertriglyceridemia (Primary Dx) 02/27/2025 Patient Outreach [address] [address] Radha Bravo MD Pre-visit Planning (SDOH screening completed on 02/18/2025) 02/27/[address] [address] Radha Bravo MD Letter for School/Work 02/20/2025 Orders Only [facility] WALK-IN CENTER [address] [place] [phone] Marcelle Shaw DO 02/20/2025 Orders Only [address] [address] Juve Monet, PharmD 02/18/2025 11:15 AM EDT Office Visit [address] [address] Marcelle Shaw DO Other acute pancreatitis, unspecified complication status (Primary Dx); Pancreatic pseudocyst; Hypertriglyceridemia; Type 2 diabetes mellitus without complication, without long-term current use of insulin (CMS/HCC) 02/17/2025 Travel 02/17/[address] [address] Radha Bravo MD Chart Prep 02/04/[address] [address] Kathy Ayoub RN provider out 01/29/2025 Telephone [facility] MEDICINE [address] [place] [address] Radha Bravo MD Nurse Triage 01/27/2025 Telephone [facility] MEDICINE [address] [place] [address] Radha Bravo MD Chart Prep from Last [...] Description 05/09/2025 2:15 PM EDT Office Visit [facility] MEDICINE [address] [place] [address] Radha Bravo MD [address] [place] [address] Health Maintenance Due Date Last Done Comments [...] CT ABDOMEN PELVIS W CONTRAST Routine 04/22/2025 3:[address] ABDOMEN PELVIS W CONTRAST Routine 04/22/2025 1:56 PM EDT AMB REFERRAL TO GASTROENTEROLOGY Urgent 04/22/2025 Hypertriglyceridemi a History of pancreatitis Pancreatic pseudocyst LIPASE Routine 03/28/2025 12:16 PM EDT AMYLASE Routine 03/28/2025 12:16 PM EDT TRIGLYCERIDES Routine 03/28/2025 12:16 PM EDT BASIC METABOLIC PANEL Routine 03/28/2025 12:16 PM EDT HEPATIC FUNCTION PANEL Routine 12:16 PM EDT CBC WITH AUTO DIFFERENTIAL [...] acute pancreatitis, unspecified complication status Pancreatic pseudocyst Hypertriglyceridemi a Type 2 diabetes mellitus without complication, without long-term current use of insulin ([facility]/HCC) LIPASE Routine 03/07/2025 2:26 PM EDT Other acute pancreatitis, unspecified complication status Pancreatic pseudocyst Hypertriglyceridemi a Type 2 diabetes mellitus without complication, without long-term current use of insulin (CMS/HCC) AMYLASE Routine 03/07/2025 2:26 PM EDT Other acute pancreatitis, unspecified complication status Pancreatic pseudocyst Hypertriglyceridemi a Type 2 diabetes mellitus without complication, without long-term current use of insulin ([facility]/HCC) ALBUMIN, RANDOM URINE W/CREATININE Routine 03/07/2025 2:26 PM EDT Other acute pancreatitis, unspecified complication status Pancreatic pseudocyst Hypertriglyceridemi a Type 2 diabetes mellitus without complication, without long-term current use of insulin (CMS/HCC) BASIC METABOLIC PANEL Routine 03/07/2025 2:26 PM EDT Other acute pancreatitis, unspecified complication status Pancreatic pseudocyst Hypertriglyceridemi a Type 2 diabetes mellitus without complication, without long-term current use of insulin (CMS/HCC) HEMOGLOBIN A1C Routine 03/07/2025 2:26 PM EDT Other acute pancreatitis, unspecified complication status Pancreatic pseudocyst Hypertriglyceridemi a Type 2 diabetes mellitus without complication, without long-term current use of insulin (CMS/HCC) HEPATIC FUNCTION PANEL Routine 2:26 PM EDT Other acute pancreatitis, unspecified complication status Pancreatic pseudocyst Hypertriglyceridemi a Type 2 diabetes mellitus without complication, without [...] Recently Relevant to Health Maintenance Results * CT Abdomen Pelvis w/ Contrast (04/22/2025 3:03 PM EDT) Only the most recent of2 resultswithin the time period is included. Anatomical Region Laterality Modality Body, Pelvis, Abdomen Computed T omography 04/22/2025 3:03 PM EDT Narrative 04/22/2025 3:57 PM EDT [address] [address] [address] Scan Report Signed Patient: Chato Dickinson MR#: [id number] : 1995 Acct:[id number] Age/Sex: 29 / M ADM Date: 04/22/25 Loc: HO.CT Attending Dr: Syed Eisenberg MD Ordering Physician: Syed Eisenberg MD Date of Service: 04/22/25 Procedure(s): CT abdomen pelvis w IV con Accession Number(s): [id number] cc: Radha Bravo; Syed Eisenberg MD Report Number: [id number]: Total DLP = 908.00 mGy-cm Reason for Exam: PANCREATITIS EXAMINATION: CT ABDOMEN AND PELVIS WITH CONTRAST CLINICAL INFORMATION: Pancreatitis COMPARISON: February 23, 2025 TECHNIQUE: Multidetector volumetric images were obtained from the superior aspect of the liver through the pubic symphysis following administration 85 mL of Omnipaque 350 intravenous contrast. Sagittal and coronal reformatted images were obtained on the technologist's workstation. Oral contrast: No This CT examination was performed using dose optimization techniques as appropriate, variously including the following: *Automated exposure control *Adjustment of mA and/or kV according to patient size (this includes techniques or standardized protocols for targeted exams where dose is matched to indication/reason for exam; i.e. extremities or head) *Use of iterative reconstruction technique FINDINGS: LUNG BASES: The visualized lung bases are unremarkable. LIVER, GALLBLADDER, AND BILIARY TREE: Liver demonstrates decreased attenuation. The gallbladder is unremarkable with no evidence of radiopaque gallstones, gallbladder wall thickening, or obvious pericholecystic inflammatory changes. PANCREAS: There is a 2.3 cm rind of increased attenuation around the tail the pancreas minimal extending toward the body, decreased since the prior CT. Fluid also tracks anterior to the left kidney, also decreased since the prior. SPLEEN: Unremarkable. ADRENAL GLANDS: Unremarkable. KIDNEYS AND URETERS: The kidneys are normal in size, shape, and attenuation. No hydronephrosis, hydroureter, or calculi seen. No perinephric stranding. BLADDER: Unremarkable. GASTROINTESTINAL TRACT: The small and large bowel are unremarkable. The appendix is unremarkable. ABDOMINAL WALL: No significant hernia is appreciated. LYMPH NODES: Normal. VASCULAR: Unremarkable. PELVIC VISCERA: Unremarkable. OSSEOUS STRUCTURES: Unremarkable. CT/CT abdomen pelvis w IV con IMPRESSION: Again seen are changes of pancreatitis with decreasing pseudocyst along the pancreas body and tail and anterior to the left kidney. Interval resolution of small bowel obstruction. Hepatic steatosis Fleischner guidelines were followed. Electronically signed by: Darion Specne MD 04/22/2025 03:54 PM EDT RP Dictated By: Darion Spence MD Signed By: <Electronically signed by Darion Spence MD in OV> 04/22/25 1554 DD/ 1503 TD/TT: 04/22/25 1535 Governor Assembler: Procedure Note Donotuseinterpreter, Image - 04/22/[address] [place] [address] [address] Scan Report Signed Patient: Chato Dickinson AMR#: [id number] : 1995Acct:[id number] Age/Sex: 29 MADM Date: 04/22/25 Loc: HO.CT Attending Dr: Syed Eisenberg MD Ordering Physician: Syed Eisenberg MD Date of Service: 04/22/25 Procedure(s): CT abdomen pelvis w IV con Accession Number(s): [id number] cc: Radha Bravo; Syed Eisenberg MD Report Number: [id number]: Total DLP = 908.00 mGy-cm Reason for Exam: PANCREATITIS EXAMINATION: CT ABDOMEN AND PELVIS WITH CONTRAST CLINICAL INFORMATION: Pancreatitis COMPARISON: February 23, 2025 TECHNIQUE: Multidetector volumetric images were obtained from the superior aspect of the liver through the pubic symphysis following administration 85 mL of Omnipaque 350 intravenous contrast. Sagittal and coronal reformatted images were obtained on the technologist's workstation. Oral contrast: No This CT examination was performed using dose optimization techniques as appropriate, variously including the following: *Automated exposure control *Adjustment of mA and/or kV according to patient size (this includes techniques or standardized protocols for targeted exams where dose is matched to indication/reason for exam; i.e. extremities or head) *Use of iterative reconstruction technique FINDINGS: LUNG BASES: The visualized lung bases are unremarkable. LIVER, GALLBLADDER, AND BILIARY TREE: Liver demonstrates decreased attenuation. The gallbladder is unremarkable with no evidence of radiopaque gallstones, gallbladder wall thickening, or obvious pericholecystic inflammatory changes. PANCREAS: There is a 2.3 cm rind of increased attenuation around the tail the pancreas minimal extending toward the body, decreased since the prior CT. Fluid also tracks anterior to the left kidney, also decreased since the prior. SPLEEN: Unremarkable. ADRENAL GLANDS: Unremarkable. KIDNEYS AND URETERS: The kidneys are normal in size, shape, and attenuation. No hydronephrosis, hydroureter, or calculi seen. No perinephric stranding. BLADDER: Unremarkable. GASTROINTESTINAL TRACT: The small and large bowel are unremarkable. The appendix is unremarkable. ABDOMINAL WALL: No significant hernia is appreciated. LYMPH NODES: Normal. VASCULAR: Unremarkable. PELVIC VISCERA: Unremarkable. OSSEOUS STRUCTURES: Unremarkable. CT/CT abdomen pelvis w IV con IMPRESSION: Again seen are changes of pancreatitis with decreasing pseudocyst along the pancreas body and tail and anterior to the left kidney. Interval resolution of small bowel obstruction. Hepatic steatosis Fleischner guidelines were followed. Electronically signed by: Darion Spence MD 04/22/2025 03:54 PM EDT Dictated By: Darion Spence MD Signed By: <Electronically signed by Darion Spence MD in OV> 04/22/25 1554 DD/ 1503 TD/TT: 04/22/25 1535 Governor Assembler: [facility] External Provider IMG CT PROCEDURES Final Result * Referral to Gastroenterology (04/22/2025) Radha Bravo MD OUTPATIENT REFERRAL ORDERABLES Final Result * (ABNORMAL) CBC auto differential (03/28/2025 12:16 PM EDT) Only the most recent of2 resultswithin the time period is included. White Blood Count 3.8(L) 4.8 - 10.8 X10*3/uL [facility] Red Blood Count 5.37 4.60 - 5.80 X10*6/uL [facility] Hemoglobin 13.6(L) 14.0 - 18.0 g/dl [facility] Hematocrit 40.3(L) 42.0 - 52.0 % [facility] Mean Corpuscular Volume 75.0(L) 80.0 - 98.0 fL [facility] Mean Corpuscular Hemoglobin 25.3(L) 27.0 - 33.0 pg [facility] Mean Corpuscular HGB Conc 33.7 31.0 - 36.0 g/dl [facility] Red Cell Distribution Width 15.4 11.0 - 16.0 % [facility] Platelet Count 265 160 - 400 X10*3/uL [facility] Mean Platelet Volume 9.4 9.4 - 12.4 fL [facility] Neutrophils Percent Auto 38.9(L) 45 - 73 % [facility] Imm Gran Pct Auto 0.3 0.0 - 0.4 % [facility] Lymphocytes Percent Auto 45.6(H) 20 - 40 % [facility] Monocytes Percent Auto 11.5(H) 2 - 11 % [facility] Eosinophils Percent Auto 2.4 0 - 4 % [facility] Basophils Percent Auto 1.3 0 - 2 % [facility] NRBC Pct Auto 0.0 0.0 - 0.2 /100WBC [facility] Neutrophils Absolute Auto 1.5(L) 2.0 - 8.3 x10*3/uL [facility] Imm Gran Abs Auto 0.01 0.00 - 0.03 X10*3/uL [facility] Lymphocytes Absolute Auto 1.7 1.2 - 4.9 X10*3/uL [facility] Monocytes Absolute Auto 0.4 0.1 - 1.2 X10*3/uL [facility] Eosinophils Absolute Auto 0.1 0.0 - 0.4 X10*3/uL [facility] Basophils Absolute Auto 0.1 0.0 - 0.2 X10*3/uL [facility] NRBC Abs Auto 0.000 0.0 - 0.012 X10*3/uL [facility] 03/28/2025 12:1 6 PM EDT 03/28/2025 12:16 PM EDT us Generic External Data Provider LAB BLOOD ORDERAB LES Final Result Performing Organization Address [facility] Co de Phone Number [facility] [address] [place] [phone] * Triglycerides (03/28/2025 12:16 PM EDT) Triglycerides 138 <150 mg/dL [facility] Comment:Desirable Triglyceri de: less than 150 mg/dLBorderline High Triglyceride 150-199 mg/dLHigh Triglyceride: 200-499 mg/dLVery High Triglyceride: greater than or equal to 5OO mg/dL 03/28/2025 12:1 6 PM EDT 03/28/2025 12:16 PM EDT Generic External Data Provider LAB BLOOD ORDERAB LES Final Result Performing Organization Address [facility] Co de Phone Number [facility] [address] [place] [phone] * Lipase (03/28/2025 12:16 PM EDT) Only the most recent of3 resultswithin the time period is included. Lipase 35 8 - 78 U/L [facility] 03/28/2025 12:1 6 PM EDT 03/28/2025 12:16 PM EDT Generic External Data Provider LAB BLOOD ORDERAB LES Final Result Performing Organization Address [facility] Co de Phone Number [facility] [address] [place] [address] [phone] * Amylase (03/28/2025 12:16 PM EDT) Only the most recent of2 resultswithin the time period is included. Amylase 86 28 - 100 U/L [facility] 03/28/2025 12:1 6 PM EDT 03/28/2025 12:16 PM EDT us Generic External Data Provider LAB BLOOD ORDERAB LES Final Result Performing Organization Address [facility] Co de Phone Number [facility] [address] [place] [phone] * Hepatic Function Panel (03/28/2025 12:16 PM EDT) Only the most recent of2 resultswithin the time period is included. Bilirubin, Total 0.7 0.0 - 1.0 mg/dL [facility] Bilirubin, Direct 0.2 0.0 - 0.5 mg/dL [facility] Aspartate Amino Transferase 22 5 - 37 U/L [facility] Alanine Aminotransferase 24 0 - 40 U/L [facility] Total Protein 7.3 6.5 - 8.0 g/dL [facility] Albumin Level 4.3 3.5 - 5.0 g/dL [facility] Alkaline Phosphatase 88 39 - 117 U/L [facility] 03/28/2025 12:1 6 PM EDT 03/28/2025 12:16 PM EDT us Generic External Data Provider LAB BLOOD ORDERAB LES Final Result Performing Organization Address [facility] Co de Phone Number [facility] [address] [place] [phone] * (ABNORMAL) Basic Metabolic Panel (03/28/2025 12:16 PM EDT) Only the most recent of2 resultswithin the time period is included. Sodium 139 135 - 145 mmol/L [facility] Potassium 4.1 3.3 - 5.1 mmol/L [facility] Chloride 108 96 - 108 mmol/L [facility] Carbon Dioxide 28 22 - 29 mmol/L [facility] Anion Gap 7(L) 12 - 20 [facility] Urea Nitrogen (BUN) 13 9 - 16 mg/dL [facility] Creatinine, Serum 0.78 0.5 - 1.4 mg/dL [facility] Estimated Glomerular Filt Rate >60 [facility] Comment:Chronic Kidney Disea se: Estimated GFR < 60 mL/min/[id number] Kidney Disease: Estimated GFR < 15 mL/min/1.73m2 Glucose 125(H) 60 - 115 mg/dL [facility] Calcium 9.2 8.4 - 10.2 mg/dL [facility] 03/28/2025 12:1 6 PM EDT 03/28/2025 12:16 PM EDT us Generic External Data Provider LAB BLOOD ORDERAB LES Final Result Performing Organization Address [facility] Co de Phone Number [facility] [address] [place] [phone] * Albumin, Random Urine W/Creatinine (03/07/2025 2:26 PM EDT) Creatinine, Urine 178.97 mg/dL [facility] Microalbumin Urine 9.0 mg/L [facility] Microalbum Creatinine Ratio Ur 5.0 <30 ug/mg cr [facility] Comment:Albumin/Creatinine R atio Reference Ranges: Normal: < 30 ug/mg creatinine Microalbuminuria: 30 - 300 ug/mg creatinineClinical Albuminuria: > 300 ug/mg creatinine Urine (Urine, Random) 03/07/2025 2:26 PM EDT 03/07/2025 4:10 PM EDT us Marcelle Shaw DO LAB URINE ORDERABLES Final R esult Performing Organization Address City/[facility]/ZIP Co de Phone Number [facility] [address] [place] [phone] * (ABNORMAL) Hemoglobin A1c (03/07/2025 2:26 PM EDT) Hemoglobin A1c 6.5(H) <6.0 % [facility] Comment:Hemoglobin A1C Refer ence Range Adults: 4.8 - 6.0 % Non diabetic: < 6.0 % Goal: < 7.0 %Additional Action Suggested: > 8.0 %Note: Hemoglobin A1c results are invalid for patients with abnormal amounts of HbF. Blood transfusions may impact the HbA1c concentration in the patient sample. Estimated Average Glucose 140 mg/dL [facility] Comment:eAG = Estimated ave rage glucose which is %A1C expressed asaverage glucose, using the formula of the [id number] Glucose study (ADAG), Diabetes Care, Vol.31,#8,Feb. 2007 Blood Venous blood specimen / Unknown 03/07/2025 2:26 PM EDT 03/07/2025 5:25 PM EDT us Marcelle Shaw DO LAB BLOOD ORDERABLES Final R esult [facility] [address] [place] [address] [phone] * (ABNORMAL) Lipid Panel, Standard (03/07/2025 2:26 PM EDT) Only the most recent of2 resultswithin the time period is included. Triglycerides 215(H) <150 mg/dL [facility] Comment:Desirable Triglyceri de: less than 150 mg/dLBorderline High Triglyceride 150-199 mg/dLHigh Triglyceride: 200-499 mg/dLVery High Triglyceride: greater than or equal to 5OO mg/dL Cholesterol 122 <200 mg/dL [facility] Comment:Desirable Cholestero l: less than 200 mg/dLBorderline High Cholesterol: 200-239 mg/dLHigh Cholesterol: greater than 239 mg/dL LDL Cholesterol Calculated 56 <100 mg/dL [facility] Comment:Desirable LDL: less than 100 mg/dLNear Optimal/Above Optimal LDL: 110- 129 mg/dLBorderline High LDL: 130-159 mg/dLHigh LDL: 160-189 mg/dLVery High LDL: greater than or equal to 190 mg/dL HDL Cholesterol 23(L) >40 mg/dL [facility] Comment:Desirable HDL: great er than 40 mg/dL Note: This HDL assay may give artificially low results in patients with liver disease. 03/07/2025 2:26 PM EDT 03/07/2025 5:25 PM EDT us Generic External Data Provider LAB BLOOD ORDERAB LES Final Result [facility] [address] [place] [address] [phone] * (ABNORMAL) Comprehensive Metabolic Panel (03/07/2025 2:26 PM EDT) Sodium 140 135 - 145 mmol/L [facility] Potassium 4.1 3.3 - 5.1 mmol/L [facility] Chloride 106 96 - 108 mmol/L [facility] Carbon Dioxide 25 22 - 29 mmol/L [facility] Anion Gap 13 12 - 20 [facility] Urea Nitrogen (BUN) 16 9 - 16 mg/dL [facility] Creatinine, Serum 0.95 0.5 - 1.4 mg/dL [facility] Estimated Glomerular Filt Rate >60 [facility] Comment:Chronic Kidney Disea se: Estimated GFR < 60 mL/min/[id number] Kidney Disease: Estimated GFR < 15 mL/min/1.73m2 Glucose 191(H) 60 - 115 mg/dL [facility] Calcium 9.6 8.4 - 10.2 mg/dL [facility] Bilirubin, Total 0.6 0.0 - 1.0 mg/dL [facility] Aspartate Amino Transferase 30 5 - 37 U/L [facility] Alanine Aminotransferase 22 0 - 40 U/L [facility] Total Protein 7.9 6.5 - 8.0 g/dL [facility] Albumin Level 4.4 3.5 - 5.0 g/dL [facility] Alkaline Phosphatase 75 39 - 117 U/L [facility] 03/07/2025 2:26 PM EDT 03/07/2025 5:25 PM EDT Generic External Data Provider LAB BLOOD ORDERAB LES Final Result Performing Organization Address City/[facility]/ZIP Co de Phone Number [facility] [address] [place] [phone] * (ABNORMAL) POCT HGB A1C (03/07/2025 [...] Acid (01/28/2025 8:35 AM EDT) IDNOW SERIAL# [id number] [facility] Strep A Nucleic Acid Negative Negative [facility] Comment:All test results mus t be correlated with clinical findings.This test has not been evaluated for monitoring treatment ofinfection.Additional follow-up testing using the culture method isrequired if the result is negative and clinical symptomspersist, or in the event of an acute rheumatic feveroutbreak. 01/28/2025 8:35 AM EDT 01/28/2025 8:39 AM EDT Generic External Data Provider LAB MICROBIOLOGY - GENERAL ORDERABLES Final Result [facility] [address] [place] [phone] * (ABNORMAL) SARS-CoV-2 RNA, Influenza A/B, and RSV RNA, Ql NAAT (01/28/2025 8:35 AM EDT) Influenza A PCR NEGATIVE Negative [facility] Influenza B PCR NEGATIVE Negative [facility] Resp Syncy Virus RNA Qual PCR NEGATIVE Negative [facility] SARS COV2 PCR POSITIVE(A) Negative [facility] Comment:All test results mus t [...] use by authorized laboratories.Testing performed on the [employer] GeneXpert utilizingreal-time RT-PCR.All SARS CoV2 and positive influenza A/B results arereported to [facility]. 01/28/2025 8:35 AM EDT 01/28/2025 8:39 AM EDT us Generic External Data Provider LAB MICROBIOLOGY - GENERAL ORDERABLES Final Result [facility] [address] [place] [phone] * HEPATITIS C AB W/REFL TO [...] a test for HCV RNA (test code 25160) is suggested. For additional information please refer to http://education.[employer]/faq/CBP67f6 (This link is being provided for informational/ educational purposes only.) 01/14/2021 3:46 PM EDT us Dianna Pierce MD HISTORICAL/NON ORDERABLE LABS Final Result Performing Organization Address [facility] Co de Phone Number [facility] [address] * HIV 1/2 ANTIGEN/ANTIBODY,FOURTH GENERATION W/RFL (01/14/2021 3:46 PM EDT) HIV-1/2 ANTIGEN AND ANTIBODIES, 4TH GENERATION W/ REFLEX NON-REACT CORY NON-REACT CORY [facility] Comment: HIV-1 antigen and HIV-1/HIV-2 [...] purpose. For additional information please refer to [email or web address] (This link is being provided for informational/ educational purposes only.) The performance of this assay has not been clinically validated in patients less than 2 years old. 01/14/2021 3:46 PM EDT us Dianna Pierce MD LAB BLOOD ORDERABLES Final Re sult Performing Organization Address [facility] Co de Phone Number [facility] [address] from Last 3 Months or Most Recently Relevant to Health Maintenance Insurance [employer] [id number] [place] [address] C3 Care Teams Geophysical Prospecting Surveyor Relationship Specialty Start Date End Date Radha Bravo MD [address] [place] [address] PCP - General Family Medicine 03/08/21
--- OUTSIDE RECORDS SUMMARY | 2025-04-25 14:43 | XMS_ITS | Patient Health Record ---
Author Organization [facility] Address [address] [place] [address] Care Team Providers Care Residential Roofer Helper Name Role Phone Radah Bravo M.D. Primary Care Provider Syed Chan [phone] Results Component Value Reference Range Notes Prothrombin Time INR Reviewed date:12/16/2024 09:37:21 PM Interpretation: Performing Lab:[facility], [address] [place] [address] Notes/Report: Prothrombin Time 15.7 10.9-12.4 SEC INTERNATIONAL [...] Panel Reviewed date:12/16/2024 09:37:32 PM Interpretation: Performing Lab:[facility], [address] [place] [address] Notes/Report: Bilirubin Total 1.2 0.0-1.0 mg/dL Bilirubin Direct 0.7 0.0-0.5 mg/dL Aspartate Amino Transferase 44 5-37 U/L Alanine Aminotransferase 14 0-40 U/L Total Protein 6.1 6.5-8.0 g/dL Albumin Level 2.7 3.5-5.0 g/dL Alkaline Phosphatase 128 39-117 U/L Basic Metabolic Panel Reviewed date:12/16/2024 09:35:32 PM Interpretation: Performing Lab:[address] [address] Notes/Report: Sodium 135 135-145 mmol/L Potassium 4.0 [...] Magnesium Reviewed date:12/16/2024 09:37:05 PM Interpretation: Performing Lab:[address] [address] Notes/Report: Magnesium 1.9 1.6-2.6 mg/dL Lipase Reviewed date:12/16/2024 09:35:17 PM Interpretation: Performing Lab:[facility], [address] [place] [address] Notes/Report: Lipase 196 8-78 U/L US abdomen limited Reviewed date:12/16/2024 09:35:09 PM Interpretation: Performing Lab: Notes/Report: [address] [address] Ultrasound Report Signed Patient: Chato Dickinson MR#: [id number] : 1995 Acct:[id number] Age/Sex: 29 / M ADM Date: 12/08/24 Loc: HO.S3 362-[address]: Ananth Rasmussen MD Ordering Physician: Syed Eisenberg MD Date of Service: 12/14/24 Procedure(s): US abdomen limited Accession Number(s): [id number] cc: Physician,Unknown ; Syed Eisenberg MD EXAMINATION: [...] 12/16/24 0905 DD/ 0756 TD/TT: 12/14/24 0801 Vocational Education Professional: Complete Blood Count Auto Di ff Reviewed date:12/24/2024 09:36:31 AM Interpretation: Performing Lab:[facility], [address] [place] [address] Notes/Report: White Blood Count 9.6 4.8-10.8 X10*3/uL [...] INR Reviewed date:12/24/2024 09:36:13 AM Interpretation: Performing Lab:[address] [address] Notes/Report: Prothrombin Time 17.0 10.9-12.4 SEC INTERNATIONAL [...] Panel Reviewed date:12/24/2024 09:36:04 AM Interpretation: Performing Lab:[address] [address] Notes/Report: Bilirubin Total 0.9 0.0-1.0 mg/dL Bilirubin Direct 0.4 0.0-0.5 mg/dL Aspartate Amino Transferase 133 5-37 U/L Alanine Aminotransferase 53 0-40 U/L Total Protein 7.7 6.5-8.0 g/dL Albumin Level 3.0 3.5-5.0 g/dL Alkaline Phosphatase 154 39-117 U/L Basic Metabolic Panel Reviewed date:12/24/2024 09:35:49 AM Interpretation: Performing Lab:[address] [address] Notes/Report: Sodium 136 135-145 mmol/L Potassium 4.3 [...] Phosphorus Reviewed date:12/24/2024 09:35:26 AM Interpretation: Performing Lab:[facility], [address] [place] [address] Notes/Report: Phosphorus 5.4 2.7-4.5 mg/dL Magnesium Reviewed date:12/24/2024 09:35:02 AM Interpretation: Performing Lab:[facility], [address] [place] [address] Notes/Report: Magnesium 1.7 1.6-2.6 mg/dL Lipase Reviewed date:12/24/2024 09:34:54 AM Interpretation: Performing Lab:[facility], [address] [place] [address] Notes/Report: Lipase 237 8-78 U/L CT abdomen pelvis w con Reviewed date:12/26/2024 12:57:44 AM Interpretation: Performing Lab: Notes/Report: [address] [place] [address] CT Scan Report Signed Patient: Chato Dickinson MR#: [id number] : 1995 Acct:[id number] Age/Sex: 29 / M ADM Date: 12/08/24 Loc: HO.S3 362-[address]: Perla Childs NP Ordering Physician: Syed Eisenberg MD Date of Service: 12/23/24 Procedure(s): CT abdomen pelvis w IV con Accession Number(s): [id number] cc: Physician,Unknown ; Syed Eisenberg MD Report Number: [id number]: Total DLP = 1706.00 mGy-cm CLINICAL HISTORY: [...] MD in OV> 12/24/2413 DD/ TD/TT: 12/24/2412 Vocational Education Professional: Luis Miguel Gene PCR Reviewed date:12/24/2024 06:33:34 PM Interpretation: Performing Lab:[facility], [address] [place] [address] Notes/Report: CDiff Gene PCR NEGATIVE Negative If C. difficile strongly suspected despite one negative test, a second test may be sent vs. empiric treatment for C. difficile infection. Hold Lav - Possible Hematolo gy Reviewed date:12/26/2024 11:21:10 PM Interpretation: Performing Lab:[facility], [address] [place] [address] Notes/Report: Hold Lav - Possible Hematology SEE NOTE Specimen will be held untested for 8 hours. Call Hematology if testing is desired. Prothrombin Time INR Reviewed date:12/26/2024 01:36:40 PM Interpretation: Performing Lab:[facility], [address] [place] [address] Notes/Report: Prothrombin Time 17.2 10.9-12.4 SEC INTERNATIONAL [...] Panel Reviewed date:12/26/2024 01:37:31 PM Interpretation: Performing Lab:[facility], [address] [place] [address] Notes/Report: Bilirubin Total 0.7 0.0-1.0 mg/dL Bilirubin Direct 0.4 0.0-0.5 mg/dL Aspartate Amino Transferase 107 5-37 U/L Alanine Aminotransferase 55 0-40 U/L Total Protein 8.0 6.5-8.0 g/dL Albumin Level 3.1 3.5-5.0 g/dL Alkaline Phosphatase 146 39-117 U/L Basic Metabolic Panel Reviewed date:12/26/2024 11:20:53 PM Interpretation: Performing Lab:[facility], [address] [place] [address] Notes/Report: Sodium 136 135-145 mmol/L Potassium 4.3 [...] Phosphorus Reviewed date:12/26/2024 11:20:22 PM Interpretation: Performing Lab:[address] [address] Notes/Report: Phosphorus 5.1 2.7-4.5 mg/dL Magnesium Reviewed date:12/26/2024 11:20:13 PM Interpretation: Performing Lab:[facility], [address] [place] [address] Notes/Report: Magnesium 1.8 1.6-2.6 mg/dL CT abdomen pelvis w con Reviewed date:12/29/2024 02:36:22 PM Interpretation: Performing Lab: Notes/Report: [address] [address] [address] Scan Report Signed Patient: Chato Dickinson MR#: [id number] : 1995 Acct:[id number] Age/Sex: 29 / M ADM Date: 12/08/24 Loc: HO.S3 362-[address]: Perla Childs NP Ordering Physician: Syed Eisenberg MD Date of Service: 12/28/24 Procedure(s): CT abdomen pelvis w IV con Accession Number(s): [id number] cc: Physician,Unknown ; Syed Eisenberg MD Report Number: [id number]: Total DLP = 1283.00 mGy-cm CLINICAL HISTORY: [...] 12/29/24 1017 DD/ 1016 TD/TT: 12/29/24 1016 Vocational Education Professional: Complete Blood Count Auto Di ff Reviewed date:03/30/2025 05:49:44 PM Interpretation: Performing Lab:[facility], [address] [place] [address] Notes/Report: White Blood Count 3.8 4.8-10.8 X10*3/uL [...] Panel Reviewed date:03/30/2025 05:49:24 PM Interpretation: Performing Lab:[address] [address] Notes/Report: Bilirubin Total 0.7 0.0-1.0 mg/dL Bilirubin Direct 0.2 0.0-0.5 mg/dL Aspartate Amino Transferase 22 5-37 U/L Alanine Aminotransferase 24 0-40 U/L Total Protein 7.3 6.5-8.0 g/dL Albumin Level 4.3 3.5-5.0 g/dL Alkaline Phosphatase 88 39-117 U/L Basic Metabolic Panel Reviewed date:03/30/2025 05:49:14 PM Interpretation: Performing Lab:[address] [address] Notes/Report: Sodium 139 135-145 mmol/L Potassium 4.1 [...] Triglycerides Reviewed date:03/30/2025 05:48:55 PM Interpretation: Performing Lab:[address] [address] Notes/Report: Triglycerides 138 <150 mg/dL Desirable Triglyceride: less than 150 mg/dL Borderline High Triglyceride 150-199 mg/dL High Triglyceride: 200-499 mg/dL Very High Triglyceride: greater than or equal to 5OO mg/dL Amylase Reviewed date:03/30/2025 05:48:26 PM Interpretation: Performing Lab:[facility], [address] [place] [address] Notes/Report: Amylase 86 28-100 U/L Lipase Reviewed date:03/30/2025 05:48:19 PM Interpretation: Performing Lab:[facility], [address] [place] [address] Notes/Report: Lipase 35 8-78 U/L CT abdomen pelvis w con Reviewed date:04/22/2025 05:03:55 PM Interpretation: Performing Lab: Notes/Report: [address] [address] [address] Scan Report Signed Patient: Chato Dickinson MR#: [id number] : 1995 Acct:[id number] Age/Sex: 29 / M ADM Date: 04/22/25 Loc: HO.CT Attending Dr: Syed Eisenberg MD Ordering Physician: Syed Eisenberg MD Date of Service: 04/22/25 Procedure(s): CT abdomen pelvis w IV con Accession Number(s): [id number] cc: Radha Bravo; Syed Eisenberg MD Report Number: [id number]: Total DLP = 908.00 mGy-cm Reason for [...] Darion Spence MD 04/22/2025 03:54 PM EDT RP Dictated By: Darion Spence MD Signed By: <Electronically signed by Darion Spence MD in OV> 04/22/25 1554 DD/ 1503 TD/TT: 04/22/25 1535 Vocational Education Professional: Reason For Referral Reason abdominal pain Referring Provider First Name Radha Referring Provider Last Name Lawrence Referred Organization [facility] Referred Provider Syed Eisenberg Referred Address [address] [place] [address], [address],[place], [place],[address],[place] Referred Provider Specialty Gastroentero logy Referral Priority Routine Problems Problem Type SNOMED Code ICD Code Onset Dates Problem Status W/U Status Risk Notes Problem Pancreatitis (58191589) Pancreatitis (K85.90) Active confirmed Problem Pancreatic pseudocyst (447274200) Pancreatic pseudocyst (K86.3) Active confirmed Encounters Encounter Location Date Provider Diagnosis [facility] [address] [place] [address] 04/22/2025 Syed [place] [facility] [address] [place] [address] 01/09/2025 Syed Eisenberg Pancreatitis K85.90 and Pancreatic pseudocyst K86.3 [facility] [address] [place] [address] 02/27/2025 Syed [place] [facility] [address] [place] [address] 03/12/2025 Syed Eisenberg Pancreatitis K85.90 and Pancreatic pseudocyst K86.3 [facility] [address] [place] [address] 03/13/2025 Syed Eisenberg Assessments Encounter Date Diagnosis [...] Name:Syed Eisenberg , 05/27/2025 02:00:00 PM, [address], [address], [place], [address], Insurance Providers Payer Name Payer Address Payer Phone Subscriber Number Group Number Insured Name Patient Relationship to Insured Coverage Start Date Coverage End Date [facility] [address] [place] [phone] [id number] CHATO DICKINSON Self - patient is the insured
[2025-04-28 10:28] LABS: TS Negative Control Passed; TS Panel A 0; TS Panel B 0; TS Positive Control Passed; TSpotTB Negative (Negative)
== END 2025-04-25 11:55 | disposition home or self-care (01) ==
LOC: HO.HHCL 11:54
PROVIDERS: PCP General Practice; Visit Provider General Practice
DX: Z11.1 Encounter for screening for respiratory tuberculosis (principal)
CPT/HCPCS: 36415; 86481

== ENCOUNTER 2025-05-28 20:44 | Emergency (ER) | payer MEDICAID, SELFPAY ==
--- OUTSIDE RECORDS SUMMARY | 2025-05-12 14:45 | XMS_ITS | Encounter Summary ---
Author Organization [employer] Address [address] [facility] 7 [place] [address] Care Team Providers Care Salesperson Corsets Name Role Phone Radha Bravo MD Primary Care Provider [phone] Reason for Referral * Consultation (Routine) - Authorized Specialty Diagnoses / Procedures Referred By Contac t Referred To Contact Bariatrics Diagnoses Obesity, Class III, BMI 40-49.9 (morbid obesity) ([facility]) Radha Bravo MD [address] [place] [address] Phone: tel: fax: [address] Phone: tel: fax: Referral ID Status Reason Start Date Expiration Date Visits Requested Visits Authorized [id number] Authorized Specialty Services Required 05/19/2026 1 1 * Consultation (Routine) - Authorized Specialty Diagnoses / Procedures Referred By Contac t Referred To Contact Optometry Diagnoses Type 2 diabetes mellitus without complication, without long-term current use of insulin ([facility]) Radha Brvao MD [address] [place] [address] Phone: tel: fax: [facility] [address] [place] [address] Phone: tel: fax: Referral ID Status Reason Start Date Expiration Date Visits Requested Visits Authorized [id number] Authorized Specialty Services Required 5 05/19/2026 6 6 Reason for Visit * Reason Comments Annual Exam Encounter Details Date Type Department Care Team (Late st Contact Info) Description 05/12/2025 2:45 PM EST Office Visit [facility] [address] [place] [address] Radha Bravo MD [address] [place] [address] Obesity, Class III, BMI 40-49.9 (morbid obesity) (HCC) (Primary Dx); Type 2 diabetes mellitus without complication, without long-term current use of insulin (HCC); Encounter for vaccination; Encounter for immunization; Glomus jugulare tumor (CMS/HCC) (HCC); History of pancreatitis; Hypertriglyceridemia Social History Tobacco Use Types Packs/Day Years [...] t he electric, gas, oil or water [employer] threatened to shut off services in your [...] Sign Reading Time Taken Comments Blood Pressure 140/90 05/12/2025 3:01 PM EST Pulse 68 05/12/2025 3:01 PM EST Temperature 36.6 C (97.8 F) 05/12/2025 3:01 PM EST Respiratory Rate 22 05/12/2025 3:01 PM EST Oxygen Saturation - - Inhaled Oxygen Concentration - - Weight 148 kg (326 lb 6.4 oz) 05/12/2025 3:01 PM EST Height 190.5 cm (6' 3 ) 05/12/2025 3:01 PM EST Body Mass Index 40.8 05/12/2025 3:01 PM EST documented in this encounter Progress Notes * Radha Bravo MD - 05/12/2025 2:45 PM EST SUBJECTIVE: Chato Woodard is a 29 y.o. male who presents for chronic disease management. Denies recent illness, ER visit, or hospitalization. Accompanied by his partner Carmen. Acute Concerns: He needs to have a physical form completed to [facility]. His TB test and other labs were ordered today and when completed, we will send the form to [facility]. He would also like a bariatric surgery referral. Needs an eye referral for DARION. 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 Patient Active Problem List Diagnosis Date Noted Glomus jugulare tumor (CMS/HCC) (HCC) 03/07/2025 Type 2 diabetes mellitus (HCC) 02/17/2025 BMI 37.0-37.9, adult 02/17/2025 History of pancreatitis 02/17/2025 Hypertriglyceridemia 02/17/2025 Pancreatic pseudocyst 02/17/2025 Conductive hearing loss of left ear 05/14/2024 Subjective pulsatile tinnitus of left ear 05/14/2024 Review of Systems OBJECTIVE: Vitals: 05/12/25 1501 BP: (!) 140/90 BP Location: Left arm Patient Position: Sitting BP Cuff Size: Large adult Pulse: 68 Resp: 22 Temp: 97.8 ??F (36.6 ??C) TempSrc: Oral Weight: 326 lb 6.4 oz (148 kg) Height: 6' 3 (1.905 m) Physical Exam Vitals and nursing note reviewed. Constitutional: Appearance: Normal appearance. He is normal weight. HENT: Head: Normocephalic and atraumatic. Right Ear: Tympanic membrane, ear canal and external ear normal. Left Ear: Tympanic membrane, ear canal and external ear normal. Nose: Nose normal. Mouth/Throat: Mouth: Mucous membranes are moist. Pharynx: Oropharynx is clear. Eyes: Extraocular Movements: Extraocular movements intact. Conjunctiva/sclera: Conjunctivae normal. Pupils: Pupils are equal, round, and reactive to light. Cardiovascular: Rate and Rhythm: Normal rate and regular rhythm. Pulses: Normal pulses. Heart sounds: Normal heart sounds. Pulmonary: Effort: Pulmonary effort is normal. Breath sounds: Normal breath sounds. Abdominal: General: Abdomen is flat. Bowel sounds are normal. There is no distension. Palpations: Abdomen is soft. There is no mass. Tenderness: There is no abdominal tenderness. There is no guarding or rebound. Musculoskeletal: General: Normal range of motion. Cervical back: Normal range of motion and neck supple. Skin: General: Skin is warm and dry. Capillary Refill: Capillary refill takes less than 2 seconds. Neurological: General: No focal deficit present. Mental Status: He is alert and oriented to person, place, and time. Psychiatric: Mood and Affect: Mood normal. Behavior: Behavior normal. ASSESSMENT/PLAN Problem List Items Addressed This Visit Type 2 diabetes mellitus (HCC) Relevant Orders POCT Glucose (Completed) Referral to Optometry History of pancreatitis Hypertriglyceridemia Glomus jugulare tumor (CMS/HCC) (HCC) Obesity, Class III, BMI 40-49.9 (morbid obesity) ([facility]) - Primary Relevant Orders Referral to Bariatric Surgery Other Visit Diagnoses Encounter for vaccination Relevant Orders COVID-19 VACCINE [id number] (Comirnaty) 19 yrs + (Completed) Encounter for immunization Relevant Orders FLU VACCINE TRIVALENT [id number] (Fluarix) 19 yrs + (Completed) PCV-20 VACCINE 6 wks + (Completed) Follow Up: 4-6 months or sooner prn Allergies: Metformin Yakut Translation: Patient is bilingual and declines translation services documented in this encounter Plan of Treatment Scheduled Referrals Name Type Priority Associated Diagnoses Orde r Schedule Referral to Optometry Outpatient Referral Routine Type 2 diabetes mellitus without complication, without long-term current use of insulin ([facility]) Expected: 05/19/2025 (Approximate), Expires: 05/19/2026 Referral to Bariatric Surgery Outpatient Referral Routine Obesity, Class III, BMI 40-49.9 (morbid obesity) ([facility]) Expected: 05/19/2025 (Approximate), Expires: 05/19/2026 documented as of this encounter Goals Goal Patient Goal Type Associated Problems Recent Progress Patient-Stated? Author Help patients manage their type 2 diabetes Care Plan Help patients manage their type 2 diabetes Dianna Garner Patient has chronic kidney disease Care Plan Patient has chronic kidney disease Dianna Garner Patient has chronic kidney disease Care Plan Patient has chronic kidney disease No Ghazala Perez, RN Patient has chronic kidney disease Care Plan Patient has chronic kidney disease No Ghazala Perez, RN documented as of this encounter Procedures Procedure Name Priority Date/Time Associated Diagnosis Comments POCT GLUCOSE Routine 05/12/2025 3:07 PM EST Type 2 diabetes mellitus without complication, without long-term current use of insulin (HCC) documented in this encounter Results * (ABNORMAL) POCT Glucose (05/12/2025 3:07 PM EST) Glucose Blood, POC 229(A) 60 - 200 mg/dL QC Media Lot # [id number] Lot# Expiration Date Blood Capillary blood specimen / Unknown 05/12/2025 3:07 PM EST Radha Bravo MD POINT OF CARE TEST ENTER/EDIT ORDERABLES Final Result documented in this encounter Visit Diagnoses Diagnosis Obesity, Class III, BMI 40-49.9 (morbid obesity) (HCC)- Primary Type 2 diabetes mellitus without complication, without long-term current use of insulin (HCC) Encounter for vaccination Encounter for immunization Glomus jugulare tumor (CMS/HCC) (HCC) History of pancreatitis Personal history of other diseases of digestive disease Hypertriglyceridemia Pure hyperglyceridemia documented in this encounter Additional Health Concerns Active Problems Noted Date Diagnosed Date Help patients manage their type 2 diabetes 05/21 Patient has chronic kidney disease 05/21/2025 Patient has chronic kidney disease 05/27/2025 Patient has chronic kidney disease 05/28/2025 Assessment Noted Time PHQ-9 Depression Total Score: 2 02/19/20 25 11:58 AM EDT documented as of this encounter Care Teams Salesperson Corsets Relationship Specialty Start Date End Date Radha Bravo MD [address] [place] [address] PCP - General Family Medicine 03/08/21 documented as of this encounter
--- OUTSIDE RECORDS SUMMARY | 2025-05-27 09:00 | XMS_ITS ---
Author Organization [facility] Address [address] [place] [address] Care Team Providers Care Lithoduplicator Operator Name Role Phone Lawrence Raymond, Radha Primary Care Provider Syed Chan [phone] REASON FOR VISIT Patient presents today for abdominal pain Encounters Encounter Location Date Provider Diagnosis [facility] [address] [place] [address] 05/27/2025 Syed Eisenberg Plan Of Treatment Next Appt Details Provider Name:Syed Luz Elgin , 07/08/2025 03:00:00 PM, [address], [address], [place], [address], Progress Notes * ALL BRYSONOB:10/1994 (29 yo M)Acc No.[id number]:05/27/2025 Progress Notes Patient: QAMAR PAYTON Provider: Maxime Eisenberg MD :1995 A ge:29 Y S ex:Male Date:05/27/2025 Address:[address] [place] [address] [address] Pcp:Radha Bravo M.D. Subjective: * Chief Complaints: * P atient presents today for abdominal pain * The named appointment provid er may or may not be the originator of this progress note, and it is not deemed complete until electronically signed by the appointment provider. Sign off status: Pending * Provider: Maxime Eisenberg MD Date: 07/27/2024 Generated for Ahmet mcneal/Silvestre/eTransmitting on: 07/29/2024 05:29 AM EST
--- NOTE | ~2025-05-28 | XR_ITS ---
CLINICAL HISTORY: 5th digit, pain 4 view left 5th digit Comparison: None Findings: No acute fractures or dislocations. No arthritic change. No erosions. No radiopaque foreign body. Small amount of soft tissue calcification dorsal to the middle phalangeal head. Correlate with history of prior injury. IMPRESSION: No acute fracture. Mild flexion at the distal interphalangeal joint of uncertain etiology. Correlate with extensor dysfunction. This document has been electronically signed by: Gregg Mccoy MD on 05/28/2025 22:14:07
[2025-05-28 20:48] VITALS: BP 133/61; PULSE 87; RESP 20; TEMP 36.4; O2SAT 94; BMI 40.7
--- NOTE | 2025-05-29 00:21 | ED.GENADULT ---
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 He reports he was playing basketball pain He went to kick the ball and the ball struck the tip of his finger on an outstretched hand. He has pain to most of the left 5th finger. He is unable to straighten the finger completely Denies any other injuries Related Data Home Medications ?Medication ?Instructions ?Recorded ?Confirmed gabapentin 300 mg capsule 300 mg PO TID 02/21/25 02/21/25 insulin glargine 100 unit/mL (3 10 unit subcut DAILY 02/21/25 02/21/25 mL) subcutaneous pen (Lantus Solostar U-100 Insulin) Previous Rx's ?Medication ?Instructions ?Recorded atorvastatin 80 mg tablet 80 mg PO BEDTIME #30 tabs 12/29/24 gemfibrozil 600 mg tablet 600 mg PO DAILY #30 tabs 12/29/24 omeprazole 20 mg capsule,delayed 20 mg PO DAILY@0630 #30 caps 12/29/24 release acetaminophen 325 mg tablet 975 mg (3 x 325 mg) PO Q6H PRN 03/01/25 Pain, Mild 1-3,Fever,Headache #20 tabs docusate sodium 100 mg capsule 100 mg PO BID #20 caps 03/01/25 polyethylene glycol 3350 17 gram 17 g PO BID PRN constipation #100 03/01/25 oral powder packet ea tramadol 50 mg tablet 50 mg PO Q8H PRN pain #10 tabs 03/01/25 Allergies Allergy/AdvReac Type Severity Reaction Status Date / Time shellfish derived (SHELLFISH Allergy Intermediate RASH Verified 05/28/25 20:50 DERIVED) Review of Systems Musculoskeletal: Musculoskeletal: Reports arthralgias, Reports joint swelling and Reports limited range of motion PMFSH Past Medical History Medical History Skull lesion Hypertriglyceridemia Acute pancreatitis Diabetes mellitus Asthma No known health problems Family History Family History Maternal Grandmother Diabetes Social History Social History Household Members: Spouse Housing: Apartment Do you presently have visiting nurse or other home services: No Alcohol intake: never Comment: Spouse at bedside Patient Tobacco Use Status: Never used Tobacco Advance Directives: No Advance Directives Information Provided: Yes service: No Current occupational status: employed Physical Exam ED Vital Signs: Vital Signs - 24 hr 05/28/25 20:48 05/29/25 00:35 Temperature 97.5 F 97.5 F Pulse Rate 87 87 Respiratory Rate 20 20 Blood Pressure 133/61 133/61 Pulse Oximetry 94 94 Oxygen Delivery Method Room Air Room Air BMI result Body Mass Index 40.7 Const General: healthy appearing, comfortable, no acute distress, alert and awake Nutritional Appearance: well nourished Orientation/consciousness: patient oriented x3 HENMT Head: Yes normocephalic and Yes atraumatic Eyes Eyelids: Yes eyelids normal Conjunctivae: conjunctivae normal Sclerae: sclerae normal Corneas: corneas normal Pupils: Equal, round and reactive pupils present EOM: EOMs intact bilaterally Neck Neck: Yes full ROM Resp Effort & Inspection: normal respiratory effort, able to speak in complete sentences and not labored Skin General skin exam: elasticity normal Neuro General: patient oriented x3 Cranial nerves: Yes Equal, round and reactive pupils present and Yes Bilaterally intact EOM present Cognition (Neuro): normal cognition Extrem Other: There is tenderness to the distal left 5th finger. There was no palpable deformity. The patient is unable to extend the D IP completely. No open wounds Medical Decision Making Medical Decision Making MDM Narrative: 29-year-old male presents for evaluation of a finger injury. X-ray is negative for fracture or dislocation. He however is unable to completely straighten in the D IP joint. I have concerned for an extensor tendon rupture from the trauma. The patient was placed in a finger splint and will follow up with the hand surgery Differential Diagnosis Differential Diagnoses: The differential diagnosis associated with the presentation includes Finger fracture Contusion Finger dislocation Tendon rupture Radiology Impression Discussion of test interpretation with radiology: I have reviewed the radiologist's reading. Radiologist Impression: Findings: No acute fractures or dislocations. No arthritic change. No erosions. No radiopaque foreign body. Small amount of soft tissue calcification dorsal to the middle phalangeal head. Correlate with history of prior injury. IMPRESSION: No acute fracture. Mild flexion at the distal interphalangeal joint of uncertain etiology. Correlate with extensor dysfunction. This document has been electronically signed by: Gregg Mccoy MD on 05/28/2025 22:14:07 Discharge Plan Discharge Clinical Impression: Finger injury Patient Disposition: Home, Self-Care Instructions: Finger Sprain (ED) Additional Instructions: Your x-ray does not show any fracture or dislocation. However I do suspect that you may have ruptured an extensor tendon which is why you can not straight in your finger. In his important that you follow up with Orthopedics. Call tomorrow to schedule an appointment Prescriptions: No Action atorvastatin 80 mg Tablet 80 mg PO BEDTIME Qty: 30 0RF gemfibrozil 600 mg Tablet 600 mg PO DAILY Qty: 30 0RF omeprazole 20 mg Capsule,Delayed Release(Dr/Ec) 20 mg PO DAILY@0630 Qty: 30 0RF gabapentin 300 mg capsule 300 mg PO TID insulin glargine [Lantus Solostar U-100 Insulin] 100 unit/mL (3 mL) insulin pen 10 unit subcut DAILY acetaminophen 325 mg Tablet 975 mg PO Q6H PRN (Reason: Pain, Mild 1-3,Fever,Headache) Qty: 20 0RF docusate sodium 100 mg Capsule 100 mg PO BID Qty: 20 0RF polyethylene glycol 3350 17 gram Powder In Packet 17 g PO BID PRN (Reason: constipation) Qty: 100 0RF tramadol 50 mg tablet 50 mg PO Q8H PRN (Reason: pain) Qty: 10 0RF Referrals: Leslye Teixeira MD [Physician, Hand Surgery] Referral Note: Possible left 5th finger extensor tendon rupture Stand Alone Forms: Work/School Release Interventions: ED Discharge Assessment Last Done: 05/29/25 00:35 Discharge Date/Time: 05/29/25 00:36 Print Language: Occitan
[2025-05-29 00:35] VITALS: BP 133/61; PULSE 87; RESP 20; TEMP 36.4; O2SAT 94
--- OUTSIDE RECORDS SUMMARY | 2025-05-29 05:30 | XMS_ITS | Encounter Summary ---
Author Organization [employer] Address [address] [facility] 7t [place] [address] Care Team Providers Care Controlled Area Checker Name Role Phone Radha Bravo MD Primary Care Provider [phone] Reason for Visit * Reason Onset Date Comments PA for CGM sensors 05/28/2025 Encounter Details Date Type Department Care Team ([facility] st Contact Info) Description 05/28/2025 Telephone [facility] [address] [place] [address] Radha Bravo MD [address] [place], [place] [phone] PA for CGM sensors Social History Tobacco Use Types Packs/Day Years [...] Telephone Encounter - Ghazala Perez RN - 05/28/2025 2:23 PM EST Continuous Glucose Monitor Prior Authorization Documentation: CGM PA initiated for: [employer] Veronica 2 sensors Insurance: [employer] PA form completed and faxed to [phone]. Patient's preferred pharmacy: [facility] - [address] [address] CGM PA should be approved by: 06/04/2025 Chato Woodard will not be scheduled with red team nurses for CGM placement/teaching. documented in this encounter Plan of Treatment Not on file documented as of this encounter Goals Goal Patient Goal Type Associated Problems Recent Progress Patient-Stated? Author Help patients manage their type 2 diabetes Care Plan Help patients manage their type 2 diabetes Dianna Garner Patient has chronic kidney disease Care Plan Patient has chronic kidney disease Dianna Garner Patient has chronic kidney disease Care Plan Patient has chronic kidney disease Ghazala Encinas, RN Patient has chronic kidney disease Care Plan Patient has chronic kidney disease Ghazala Encinas, RN documented as of this encounter Visit Diagnoses Not on filedocumented in this encounter Additional Health Concerns Active Problems Noted Date Diagnosed Date Help patients manage their type 2 diabetes 05/21 Patient has chronic kidney disease 05/21/2025 Patient has chronic kidney disease 05/27/2025 Patient has chronic kidney disease 05/28/2025 Assessment Noted Time PHQ-9 Depression Total Score: 2 02/19/20 25 11:58 AM EDT documented as of this encounter Care Teams Controlled Area Checker Relationship Specialty Start Date End Date Radha Bravo MD [address] [place] [address] PCP - General Family Medicine 03/08/21 documented as of this encounter
--- OUTSIDE RECORDS SUMMARY | 2025-05-29 05:30 | XMS_ITS | Encounter Summary ---
Author Organization [employer] Address [address] [facility] 7t [place] [address] Care Team Providers Care Extension Work Instructor Name Role Phone Radha Bravo MD Primary Care Provider [phone] Encounter Details Date Type Department Care Team ([facility] st Contact Info) Description 04/23/2025 Orders Only [facility] [address] [place], [place] [phone] ProviderInes MD Social History Tobacco Use Types [...] as of this encounter Plan of Treatment Not on file documented as of this encounter Procedures Procedure [...] documented as of this encounter Care Teams Extension Work Instructor Relationship Specialty Start Date End Date Radha Bravo MD [address] [place] [address] PCP - General Family Medicine 03/08/21 documented as of this encounter
--- OUTSIDE RECORDS SUMMARY | 2025-05-29 05:30 | XMS_ITS | Data Portability ---
Author Organization [place] - [facility], [facility] Address [address] [address] Care Team Providers Care Cooler Service Supervisor Name Role Phone MICHELA SULLIVAN Primary Care Provider MICHELA SULLIVAN Referring Provider Assessment Encounter Date Assessment Date Assessment LastModified [...] a tumor is associated with severe morbidity. [email or web address] Not available 05/14/2024 12:52:42 Plan of Treatment Reminders Order Date Submit Date Provider Last Modified By Organization Details Last Modified Time Details Appointments None recorded. Lab None recorded. Referral None recorded. Procedures None recorded. Surgeries None recorded. Imaging MRI, brain + internal auditory canal, w/wo contrast - MRI, BRAIN + INTERNAL AUDITORY CANAL, W/WO CONTRAST 2023 024 [facility] ([facility]), [address] [place], [address], 14:06:23 Medication Orders None recorded. Patient TargetsNo [...] stem, w/wo contr ast [facility] Access ion Number : [id number] [place] t Name: Chato Sinha Record Number : [id number] Date of : 1994 Date of Exam: 2023 Referr ing Physic darlene: Mynor Perera re Ear Nose [address] [place] [address] Exam: MR Brain (C-/C+ ) CPT 44249 Room Descri ption: [place] [facility] Espr 1.5 HISTOR Y: Erosiv e [...] ion cyst is also presen t. 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 Electr onical ly Signed By: Brent Arteaga MD [email or web address] [facility] ([facility]) [address] [facility] [place], [address], 05/21/2024 12:56:02 Result Notes Documentation Provider Name and Address Organization Details Recorded Time Mri, Brain + Brain Stem, W/wo Contrast : [facility] Accession Number: [id number] Patient Name: Chato Kaur Date of : 1995 Date of Exam: 05-16-2024 Referring Physician: Darshan Perera Ear [facility] [address] [place] [address] Exam: MR Brain (C-/C+) CPT 18529 Room Description: [facility] 1.5 HISTORY: Erosive tumor on CT. 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 DARSHAN PERERA MD [address] [facility],[place] [address], [place], [address], [facility] - [facility] 20:50:59 Conductive hearing loss of left ear 7990705749 Active [address],[place] [address], [place], [address], [facility] 11:29:58 Left conductive hearing loss 8237176285501 Active 2023 SHANKAR PETERSON [address],[place] [address], [place], [address], [facility] 11:30:59 Subjective pulsatile tinnitus of left ear 3985376047733 103 Active 2023 DARSHAN PERERA MD [address] [facility],[place] [address], [place], [address], [facility] 12:51:33 Problem Notes None recorded. Procedures Surgical History Date Name Laterality Status Provider Name and Address Organization Details Recorded Time Comp Audio with Tymps & Reflexes - 71173 & 25236 completed ERASMO SR [address] [facility],[place] [address], [place], [address], [facility] 05/14/2024 11:29:29 Imaging Results None recorded. Procedure Notes None recorded. Medical Equipment None Reported. Allergies Allergen ID Allergen Name Allergen Category Reaction Reaction Severity Criticality Documentation Date Start Date Code Code System Note Provider Name and Address Organization Details Recorded Time 917070 metformin medicatio n Not available Not available Not available 05/14/2024 6809 RxNorm Nini amin [facility] 11:07:04 Medications Name Sig Start Date Stop [...] Available Not Available [employer] Lite Meter kit ENGLISH CHECK BLOOD SUGAR THREE TIMES A DAY [...] Available No t Available [employer] Veronica 3 [place] USE DIRECTED TO TEST BLOOD SUGAR EVERY DAY active Not Available Not Available No t Available [employer] Veronica 3 Plus Sensor device APPLY 1 SENSOR TOPICALLY EVERY 15 DAYS. USE DIRECTED TO TEST BLOOD SUGAR active Not Available Not Available No t Available Vitals Date Recorded Body height Body weight Provider Name and Address Organization Details Last Updated DateTime 05/14/2024 190.5 cm 871209.56 g Nini Dan [place] - [facility] 05/14/2024 11:09:49 Social History None recorded. Functional Status None recorded. Mental Status None recorded. Family History Nothing Reported. Medical History Condition Response Diabetes Y Hypertension Y Asthma Y High Cholesterol Y Past Encounters Encounter ID Performer Location Encounter Start Date Encounter Closed Date Diagnosis/Indication Diagnosis SNOMED-CT Code Diagnosis ICD10 Code Diagnosis IMO Codes Diagnosis Note [id number] DARSHAN PERERA MD [facility] [address] [address] 05/14/2024 10:59:34 05/14/2024 12:11:43 Neoplasm of glomus jugulare 784024393 D49.7 Left condu ctive hearing loss 0450247118 107 H90.12 Audiologic al evaluation results: 05/14/2024 [...] tinnitus. Subjective pulsatile tinnitus of left ear 9314206747 230809 H93.A2 Health Concerns Section Related Observation LastModified by Organization Detai ls LastModified Time None Recorded Concern Status LastModified by Organization Details LastModified Time None Recorded Advance Directives Directive None Recorded Payers Insurance Date Sequence Insurance Name Policy Number Policy Suarez Covered Member ID Suarez Member ID Guarantor Name 02/27/2025 1 [facility] NET PLAN (MEDICAID HMO) [id number] Chato Woodard [id number] Chato Kaur Notes Date Note Type [...] a glomus jugulare tumor. Patient referred to [facility] neurosurgery who redirected the consult to me. Patient notes occasional pulsatile tinnitus in the left ear for the past few months. He gets chronic daily headaches primarily centered around the right occiput.. He has noticed no changes in vocal quality or strength. No troubles with swallowing. Patient comes in today accompanied by his girlfriend who is helping with Angolan translation. She would like to be the contact center representative for future scheduling, and he is in agreement with this. DARSHAN PERERA MD [address] [place] [address], [place], [address], [place] [facility] 05/14/2024 12:53:19
--- OUTSIDE RECORDS SUMMARY | 2025-05-29 05:30 | XMS_ITS | Encounter Summary ---
Author Organization [employer] Address [address] [facility] 7t [place] [address] Care Team Providers Care Automation Operator Name Role Phone Radha Bravo MD Primary Care Provider [phone] Reason for Visit * Reason Onset Date Comments Med Refill 05/16/2025 Encounter Details Date Type Department Care Team (Late st Contact Info) Description 05/16/2025 Refill [facility] [address] [place], [place] [phone] Marcelle Shaw DO [address] [place], [place] [phone] Social History Tobacco Use Types Packs/Day Years [...] on file documented as of this encounter Visit Diagnoses Not on filedocumented in this encounter Additional Health Concerns Assessment Noted Time PHQ-9 Depression Total Score: 2 02/19/20 25 11:58 AM EDT documented as of this encounter Care Teams Automation Operator Relationship Specialty Start Date End Date Radha Bravo MD [address] [place] [address] PCP - General Family Medicine 03/08/21 documented as of this encounter
--- OUTSIDE RECORDS SUMMARY | 2025-05-29 05:30 | XMS_ITS | Clinical Summary ---
Author Organization [employer] Address [address] [facility] [address] [place] [address] Care Team Providers Care Core Checker Name Role Phone Radha Bravo MD Primary Care Provider [phone] Allergies Active Allergy Reactions Criticality Noted Date Comments Metformin Unknown 05/09/2025 Medications atorvastatin (Lipitor) 80 MG tablet Take 1 tablet (80 mg) by mouth Once per day. 90 tablet 1 Active gemfibrozil (Lopid) 600 MG tablet Take 1 tablet (600 mg) by mouth 2 times daily. 180 tablet 1 025 2025 Active omeprazole (PriLOSEC) [address] capsule Take 1 capsule (20 mg) by mouth before breakfast. 90 capsule 1 Active FREESTYLE LITE test strip Use to test blood sugar 3 times daily 100 each 025 2025 Active Lancets misc Use to test blood sugar 3 times daily 100 each 025 Active Alcohol Swabs 70 % pads Use to test blood sugar 3 times daily 100 each 025 Active Blood Glucose Monitoring Suppl (FreeStyle Bullhead Lite) w/Device kit Use to test blood sugar 3 times daily 1 kit Active Continuous Glucose Communication Electronic Technician (FreeStyle Veronica 3 Quincy) device 1 each Once per day. Use as directed for CGM 1 each 025 Active Continuous Glucose Sensor (FreeStyle Veronica 3 Plus Sensor) misc 1 each every 15 days. Apply 1 every 15 days as directed for CGM 2 each 11 Active glucose blood (FreeStyle Precision Henry Test) test strip Use to test blood sugar 3 times daily in case of CGM failure or extremes of BG 100 each 11 025 2025 Active gabapentin (Neurontin) 300 MG capsule Take 1 capsule (300 mg) by mouth 3 times daily. 90 capsule 3 025 2025 Active acetaminophen (Tylenol) 325 MG tablet Take 3 tablets by mouth every 6 (six) hours if needed for mild pain. Active docusate sodium (Colace) 100 MG capsule Take 1 capsule by mouth 2 times daily. Active pen needle 32G x 4 mm misc USE DIRECTED WITH INSULIN 100 each 3 5 12:23 PM EST 2025 Active insulin glargine (Lantus SoloStar) 100 UNIT/ML pen INJECT 10 UNITS SUBCUTANEOUSLY EVERY MORNING 15 mL 3 Active insulin glargine (Lantus SoloStar) 100 UNIT/ML pen Inject 10 Units under the skin in the morning. 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 Assessment & [...] Encounters Date Type Department Care Team Description 05/28/2025 Telephone [facility] [address] [place] [address] Radha Bravo MD PA for CGM sensors 05/18/2025 Refill [facility] [address] [place] [phone] Marcelle Shaw DO 05/16/2025 Refill [facility] [address] [place] [phone] Marcelle Shaw DO 05/12/2025 2:45 PM EST Office Visit [facility] [address] [place] [phone] Radha Bravo MD Obesity, Class III, BMI 40-49.9 (morbid obesity) (HCC) (Primary Dx); Type 2 diabetes mellitus without complication, without long-term current use of insulin (HCC); Encounter for vaccination; Encounter for immunization; Glomus jugulare tumor (CMS/HCC) (HCC); History of pancreatitis; Hypertriglyceridemia 05/12/2025 Travel 05/08/2025 Telephone [facility] [address] [place] [address] Radha Bravo MD chart prep 05/05/2025 Patient Outreach [facility] [address] [place] [phone] Radha Bravo MD Pre-visit Planning (SDOH screening completed on 02/18/25 ) 04/30/2025 Telephone [facility] [address] [place] [phone] Radha Bravo MD [facility] (I called the patient, regarding a PE Form, [facility]. I reached a voicemail, and left a message informing him that he needs to have [facility], before the form is completed. He may come to the [facility] lab at his convenience. He is scheduled for a PE on 05/12/25 at 2:45.) 04/29/2025 Telephone [facility] [address] [place] [phone] Radha Bravo MD 04/25/[address] [address] Radha Bravo MD Encounter for screening for respiratory tuberculosis 04/23/2025 Orders Only [facility] [address] [place] [address] Ines Cooney MD 04/18/2025 Telephone [facility]OM[facility] [address] [place] [phone] Hailey Buenrostro, COLETTE 04/14/2025 Telephone [facility] [address] [place] [phone] Marcelle Shaw DO Med Refill 03/28/2025 Orders Only GENERIC EXTERNAL DATA DEPARTMENT Provider, Generic External Data 03/17/2025 Telephone [facility] [address] [place] [phone] Radha Bravo MD Letter for School/Work 03/14/2025 Refill [facility] [address] [place] [phone] Marcelle Shaw DO 03/14/2025 Telephone [facility] [address] [place] [phone] Radha Bravo MD Referral 03/12/2025 Population Health Risk Score [facility] ([facility]) Department [address] [place] [phone] Provider, Population Health Generic 03/11/[address] [address] Kathy Ayoub RN Results 03/07/2025 1:45 PM EDT Office Visit [address] [address] Radha Bravo MD History of pancreatitis (Primary [...] Generic External Data 03/07/2025 Travel 03/05/[address] [address] Radha Brvao MD chart prep 03/05/2025 Travel 03/03/2025 Orders Only [address] [address] Marcelle Shaw DO Hypertriglyceridemia (Primary Dx) 02/27/2025 Patient Outreach [address] [address] Radha Bravo MD Pre-visit Planning (SDOH screening completed on 02/18/2025) 02/27/[address] [address] Radha Bravo MD Letter for School/Work from Last 3 Months Immunizations Immunization Administration Dates Next Due Influenza, seasonal, injectable, preservative fr ee 05/12/2025 Moderna Covid-19 Vaccine 12+ 05/25/2021 Pfizer Covid-19 Vaccine 12+ 05/12/2025 Pneumococcal Conjugate PCV 20 05/12/2025 Tdap 04/10/2024 Social History Tobacco Use Types [...] 22 05/12/2025 3:01 PM EST Oxygen Saturation 99% 02/18/2025 11:55 AM EDT Inhaled Oxygen Concentration - - Weight 148 kg (326 lb 6.4 oz) 05/12/2025 3:01 PM EST Height 190.5 cm (6' 3 ) 05/12/2025 3:01 PM EST Body Mass Index 40.8 05/12/2025 3:01 PM EST Plan of Treatment Health Maintenance Due Date Last Done Comments Diabetes: Foot Exam 2006 Eye Exam 2006 HPV Vaccines (1 - Male 3-dos e series) 2011 Hepatitis A Vaccines (1 of 2 - Risk 2-dose series) 2015 Hepatitis B Vaccines (1 of 3 - 19+ 3-dose series) 2015 Diabetes: Hemoglobin A1C 09/06/2025 025, 03/07/2025, 01/14/2021 Alcohol/Substance Use Screening 02/18/2026 02/18/2025 Depression Screening 02/18/2026 02/18/2025, 02/18/2025 Disability Screening 02/18/2026 02/18/2025 SDOH Screening 02/18/2026 02/18/2025 Diabetes: Urine Protein Screening 03/07/2026 03/07/2025, 01/14/2021 Lipid Panel 03/07/2026 03/07/2025, 03/07/2025, 01/14/2021 Tobacco Screening 05/12/2026 05/12/2025 Family Planning (PISQ) 05/19/2026 05/19/2025 DTaP/Tdap/Td Vaccines (2 - T d or Tdap) 04/10/2034 04/10/2024 Zoster Vaccines (1 of 2) 2046 RSV Patients and Patients Aged 60 years or older (1 - 1-dose 75+ series) 2071 HIV Screening Completed 01/14/2021 Hepatitis C Screening Completed 01/14/2021 COVID-19 Vaccine Completed 05/12/2025, 05/25/2021 Influenza Vaccine Completed 05/12/2025 Pneumococcal Vaccine: Pediatrics (0 to 5 Years) and At-Risk Patients (6 to 49) Years Completed 05/12/2025 HIB Vaccines Aged Out No longer eligi [...] on patient's age to complete this topic Goals Goal Patient Goal Type Associated Problems [...] Patient has chronic kidney disease Ghazala Encinas, seasonal recruiter Procedure Name Priority Date/Time Associated Diagnosis Comments POCT GLUCOSE Routine 05/12/2025 3:07 PM EST Type 2 diabetes mellitus without complication, without long-term current use of insulin (HCC) T-SPOT(R).TB Routine 04/25/2025 11:59 AM EDT Encounter for screening for respiratory tuberculosis CT ABDOMEN PELVIS W CONTRAST Routine 04/22/2025 [...] without long-term current use of insulin (CMS/HCC) ZZZ HISTORICAL HEPATITIS C AB W/REFL TO HCV RNA, QN, PCR Routine 01/14/2021 3:46 PM EDT HIV 1/2 ANTIGEN/ANTIBODY, FOURTH GENERATION W/RFL Routine 01/14/2021 3:46 PM EDT from Last 3 Months or Most Recently Relevant to Health Maintenance Results * (ABNORMAL) POCT Glucose (05/12/2025 3:07 PM EST) Only the most recent of2 resultswithin the time period is included. Pathologist [facility] Glucose Blood, POC 229(A) 60 - 200 mg/dL QC Media Lot # [id number] Lot# Expiration Date Blood Capillary blood specimen / Unknown 05/12/2025 3:07 PM EST Radha Bravo MD POINT OF CARE TEST ENTER/EDIT ORDERABLES Final Result * T-SPOT??.TB (04/25/2025 11:59 AM EDT) T Spot TB Negative Negative [facility] Comment:A negative test resu lt does not exclude the possibilityof exposure to or infection with Mycobacteriumtuberculosis (M. tuberculosis). Patients with recentexposure to TB infected individuals exhibiting anegative T-SPOT.TB result should be considered forretesting within 6 weeks or if other relevant clinicalsymptoms indicate. Results from T-SPOT.TB testing mustbe used in conjunction with each individual'sepidemiological history, current medical status,and results of other diagnostic evaluations.The T-SPOT.TB test is qualitative and results arereported as positive, borderline, or negative, giventhat the test controls perform as expected. In linewith the Centers for Disease Control and Prevention's2010 recommendation to report quantitative measurementsalongside the qualitative result, the laboratoryprovides spot counts for informational purposes only.The T-SPOT.TB test should not be interpreted as aquantitative test. TS PANEL A 0 [facility] TS PANEL B 0 [facility] Negative Control Passed [facility] Positive Control Passed [facility] Comment:For additional infor mation, please refer tohttp://education.[employer]/faq/LFG591(This link is being provided for informational/educational purposes only.)THIS TEST WAS PERFORMED AT:[employer] [id number] [place] [address]TVQXCXD W. MASON,MD,PHD 04/25/2025 11:5 9 AM EDT 04/25/2025 1:04 PM EDT us Radha Bravo MD LAB BLOOD ORDERABLES Final Res ult [facility] [address] [place] [phone] * CT Abdomen Pelvis w/ Contrast (04/22/2025 3:03 PM EDT) Only the most recent of2 resultswithin the time period is included. Anatomical Region Laterality Modality Body, Pelvis, Abdomen Computed T omography 04/22/2025 3:03 PM EDT Narrative 04/22/2025 3:57 PM EDT [address] [address] [address] Scan Report Signed Patient: Chato Dickinson MR#: [id number] : 1995 Acct:[id number] Age/Sex: 29 / M ADM Date: 04/22/25 Loc: HO.CT Attending Dr: Syed Eisenberg MD Ordering Physician: Syed Eisenberg MD Date of Service: 04/22/25 Procedure(s): CT abdomen pelvis w IV con Accession Number(s): [id number] cc: Radha Bravo; Syed Eisenberg MD Report Number: [id number]: Total DLP = 908.00 mGy-cm Reason for [...] 04/22/25 1554 DD/ 1503 TD/TT: 04/22/25 1535 Vmware Engineer: Procedure Note Donotuseinterpreter, Image - 04/22/[address] [address] [address] Scan Report Signed Patient: Chato Dickinson AMR#: [id number] : 1995Acct:[id number] Age/Sex: 29 / MADM Date: 04/22/25 Loc: HO.CT Attending Dr: Syed Eisenberg MD Ordering Physician: Syed Eisenberg MD Date of Service: 04/22/25 Procedure(s): CT abdomen pelvis w IV con Accession Number(s): [id number] cc: Radha Bravo; Syed Eisenberg MD Report Number: [id number]: Total DLP = 908.00 mGy-cm Reason for [...] 04/22/25 1554 DD/ 1503 TD/TT: 04/22/25 1535 Vmware Engineer: [facility] External Provider IMG CT PROCEDURES Final Result * Referral to Gastroenterology (04/22/2025) Radha Bravo MD OUTPATIENT REFERRAL ORDERABLES Final Result * (ABNORMAL) CBC auto differential (03/28/2025 12:16 PM EDT) Only the most recent of2 resultswithin the time period is included. White Blood Count 3.8(L) 4.8 - 10.8 X10*3/uL [facility] Red Blood Count 5.37 4.60 - 5.80 X10*6/uL [facility] Hemoglobin 13.6(L) 14.0 - 18.0 g/dl [facility] Hematocrit 40.3(L) 42.0 - 52.0 % [facility] Mean Corpuscular Volume 75.0(L) 80.0 - 98.0 fL [facility] Mean Corpuscular Hemoglobin 25.3(L) 27.0 - 33.0 pg [facility] Mean Corpuscular HGB Conc 33.7 31.0 - 36.0 g/dl [facility] Red Cell Distribution Width 15.4 11.0 - 16.0 % [facility] Platelet Count 265 160 - 400 X10*3/uL [facility] Mean Platelet Volume 9.4 9.4 - 12.4 fL [facility] Neutrophils Percent Auto 38.9(L) 45 - 73 % [facility] Imm Gran Pct Auto 0.3 0.0 - 0.4 % [facility] Lymphocytes Percent Auto 45.6(H) 20 - 40 % [facility] Monocytes Percent Auto 11.5(H) 2 - 11 % [facility] Eosinophils Percent Auto 2.4 0 - 4 % [facility] Basophils Percent Auto 1.3 0 - 2 % [facility] NRBC Pct Auto 0.0 0.0 - 0.2 /100WBC [facility] Neutrophils Absolute Auto 1.5(L) 2.0 - 8.3 x10*3/uL [facility] Imm Gran Abs Auto 0.01 0.00 - 0.03 X10*3/uL [facility] Lymphocytes Absolute Auto 1.7 1.2 - 4.9 X10*3/uL [facility] Monocytes Absolute Auto 0.4 0.1 - 1.2 X10*3/uL [facility] Eosinophils Absolute Auto 0.1 0.0 - 0.4 X10*3/uL [facility] Basophils Absolute Auto 0.1 0.0 - 0.2 X10*3/uL [facility] NRBC Abs Auto 0.000 0.0 - 0.012 X10*3/uL [facility] 03/28/2025 12:1 6 PM EDT 03/28/2025 12:16 PM EDT us Generic External Data Provider LAB BLOOD ORDERAB LES Final Result [facility] [address] [place] [phone] * Triglycerides (03/28/2025 12:16 PM EDT) Triglycerides 138 <150 mg/dL [facility] Comment:Desirable Triglyceri de: less than 150 mg/dLBorderline High Triglyceride 150-199 mg/dLHigh Triglyceride: 200-499 mg/dLVery High Triglyceride: greater than or equal to 5OO mg/dL 03/28/2025 12:1 6 PM EDT 03/28/2025 12:16 PM EDT us Generic External Data Provider LAB BLOOD ORDERAB LES Final Result Performing Organization Address [facility] Co de Phone Number [facility] [address] [place] [phone] * Lipase (03/28/2025 12:16 PM EDT) Only the most recent of3 resultswithin the time period is included. Lipase 35 8 - 78 U/L [facility] 03/28/2025 12:1 6 PM EDT 03/28/2025 12:16 PM EDT us Generic External Data Provider LAB BLOOD ORDERAB LES Final Result Performing Organization Address [facility] Co de Phone Number [facility] [address] [place] [address] [phone] * Amylase (03/28/2025 12:16 PM EDT) Only the most recent of2 resultswithin the time period is included. Amylase 86 28 - 100 U/L [facility] 03/28/2025 12:1 6 PM EDT 03/28/2025 12:16 PM EDT us Generic External Data Provider LAB BLOOD ORDERAB LES Final Result Performing Organization Address City/[facility]/ZIP Co de Phone Number [facility] [address] [place] [address] [phone] * Hepatic Function Panel (03/28/2025 12:16 PM EDT) Only the most recent of2 resultswithin the time period is included. Bilirubin, Total 0.7 0.0 - 1.0 mg/dL [facility] Bilirubin, Direct 0.2 0.0 - 0.5 mg/dL [facility] Aspartate Amino Transferase 22 5 - 37 U/L [facility] Alanine Aminotransferase 24 0 - 40 U/L [facility] Total Protein 7.3 6.5 - 8.0 g/dL [facility] Albumin Level 4.3 3.5 - 5.0 g/dL [facility] Alkaline Phosphatase 88 39 - 117 U/L [facility] 03/28/2025 12:1 6 PM EDT 03/28/2025 12:16 PM EDT us Generic External Data Provider LAB BLOOD ORDERAB LES Final Result [facility] [address] [place] [phone] * (ABNORMAL) Basic Metabolic Panel (03/28/2025 12:16 PM EDT) Only the most recent of2 resultswithin the time period is included. Pathologist [facility] Sodium 139 135 - 145 mmol/L [facility] Potassium 4.1 3.3 - 5.1 mmol/L [facility] Chloride 108 96 - 108 mmol/L [facility] Carbon Dioxide 28 22 - 29 mmol/L [facility] Anion Gap 7(L) 12 - 20 [facility] Urea Nitrogen (BUN) 13 9 - 16 mg/dL [facility] Creatinine, Serum 0.78 0.5 - 1.4 mg/dL [facility] Estimated Glomerular Filt Rate >60 [facility] Comment:Chronic Kidney Disea se: Estimated GFR < 60 mL/min/[id number] Kidney Disease: Estimated GFR < 15 mL/min/1.73m2 Glucose 125(H) 60 - 115 mg/dL [facility] Calcium 9.2 8.4 - 10.2 mg/dL [facility] 03/28/2025 12:1 6 PM EDT 03/28/2025 12:16 PM EDT us Generic External Data Provider LAB BLOOD ORDERAB LES Final Result Performing Organization Address [facility] Co de Phone Number [facility] [address] [place] [phone] * Albumin, Random Urine W/Creatinine (03/07/2025 2:26 PM EDT) Creatinine, Urine 178.97 mg/dL [facility] Microalbumin Urine 9.0 mg/L [facility] Microalbum Creatinine Ratio Ur 5.0 <30 ug/mg cr [facility] Comment:Albumin/Creatinine R atio Reference Ranges: Normal: < 30 ug/mg creatinine Microalbuminuria: 30 - 300 ug/mg creatinineClinical Albuminuria: > 300 ug/mg creatinine Urine (Urine, Random) 03/07/2025 2:26 PM EDT 03/07/2025 4:10 PM EDT us Marcelle Shaw DO LAB URINE ORDERABLES Final R esult Performing Organization Address [facility] Co de Phone Number [facility] [address] [place] [phone] * (ABNORMAL) Hemoglobin A1c (03/07/2025 2:26 PM EDT) Hemoglobin A1c 6.5(H) <6.0 % [facility] Comment:Hemoglobin A1C Refer ence Range Adults: 4.8 - 6.0 % Non diabetic: < 6.0 % Goal: < 7.0 %Additional Action Suggested: > 8.0 %Note: Hemoglobin A1c results are invalid for patients with abnormal amounts of HbF. Blood transfusions may impact the HbA1c concentration in the patient sample. Estimated Average Glucose 140 mg/dL [facility] Comment:eAG = Estimated ave rage glucose which is %A1C expressed asaverage glucose, using the formula of the [id number] Glucose study (ADAG), Diabetes Care, Vol.31,#8,Feb. 2007 Blood Venous blood specimen / Unknown 03/07/2025 2:26 PM EDT 03/07/2025 5:25 PM EDT us Marcelle Shaw DO LAB BLOOD ORDERABLES Final R esult [facility] [address] [place] [phone] * (ABNORMAL) Lipid Panel, Standard (03/07/2025 2:26 PM EDT) Only the most recent of2 resultswithin the time period is included. Triglycerides 215(H) <150 mg/dL [facility] Comment:Desirable Triglyceri de: less than 150 mg/dLBorderline High Triglyceride 150-199 mg/dLHigh Triglyceride: 200-499 mg/dLVery High Triglyceride: greater than or equal to 5OO mg/dL Cholesterol 122 <200 mg/dL [facility] Comment:Desirable Cholestero l: less than 200 mg/dLBorderline High Cholesterol: 200-239 mg/dLHigh Cholesterol: greater than 239 mg/dL LDL Cholesterol Calculated 56 <100 mg/dL [facility] Comment:Desirable LDL: less than 100 mg/dLNear Optimal/Above Optimal LDL: 110- 129 mg/dLBorderline High LDL: 130-159 mg/dLHigh LDL: 160-189 mg/dLVery High LDL: greater than or equal to 190 mg/dL HDL Cholesterol 23(L) >40 mg/dL [facility] Comment:Desirable HDL: great er than 40 mg/dL Note: This HDL assay may give artificially low results in patients with liver disease. 03/07/2025 2:26 PM EDT 03/07/2025 5:25 PM EDT us Generic External Data Provider LAB BLOOD ORDERAB LES Final Result [facility] [address] [place] [phone] * (ABNORMAL) Comprehensive Metabolic Panel (03/07/2025 2:26 PM EDT) Sodium 140 135 - 145 mmol/L [facility] Potassium 4.1 3.3 - 5.1 mmol/L [facility] Chloride 106 96 - 108 mmol/L [facility] Carbon Dioxide 25 22 - 29 mmol/L [facility] Anion Gap 13 12 - 20 [facility] Urea Nitrogen (BUN) 16 9 - 16 mg/dL [facility] Creatinine, Serum 0.95 0.5 - 1.4 mg/dL [facility] Estimated Glomerular Filt Rate >60 [facility] Comment:Chronic Kidney Disea se: Estimated GFR < 60 mL/min/1.00u5Fubkem Kidney Disease: Estimated GFR < 15 mL/min/1.73m2 Glucose 191(H) 60 - 115 mg/dL [facility] Calcium 9.6 8.4 - 10.2 mg/dL [facility] Bilirubin, Total 0.6 0.0 - 1.0 mg/dL [facility] Aspartate Amino Transferase 30 5 - 37 U/L [facility] Alanine Aminotransferase 22 0 - 40 U/L [facility] Total Protein 7.9 6.5 - 8.0 g/dL [facility] Albumin Level 4.4 3.5 - 5.0 g/dL [facility] Alkaline Phosphatase 75 39 - 117 U/L [facility] 03/07/2025 2:26 PM EDT 03/07/2025 5:25 PM EDT us Generic External Data Provider LAB BLOOD ORDERAB LES Final Result [facility] [address] [place] [phone] * (ABNORMAL) POCT HGB A1C (03/07/2025 1:49 PM EDT) Hemoglobin A1C 6.2(A) 4.0 - 5.7 % QC Media Lot # [id number] Lot# Expiration Date Blood 03/07/2025 1:49 PM EDT Radha Bravo MD POINT OF CARE TEST ENTER/EDIT ORDERABLES Final Result * HEPATITIS C AB W/REFL TO HCV RNA, QN, PCR (01/14/2021 3:46 PM EDT) HEPATITIS C ANTIBODY NON-REACT CORY NON-REACT CORY [facility] INDEX 0.01 <1.00 [facility] Comment: HCV antibody was non-reactive. There is no laboratory evidence of HCV infection. In most cases, no further action is required. However, if recent HCV exposure is suspected, a test for HCV RNA (test code 37148) is suggested. For additional information please refer to http://education.[employer]/faq/ZSW71g2 (This link is being provided for informational/ educational purposes only.) 01/14/2021 3:46 PM EDT Dianna Pierce MD HISTORICAL/NON ORDERABLE LABS Final Result [facility] [address] * HIV 1/2 ANTIGEN/ANTIBODY,FOURTH GENERATION W/RFL (01/14/2021 3:46 PM EDT) HIV-1/2 ANTIGEN AND ANTIBODIES, 4TH GENERATION W/ REFLEX NON-REACT CORY NON-REACT CORY [facility] Comment: HIV-1 antigen and HIV-1/HIV-2 [...] purpose. For additional information please refer to http://education.[employer]/faq/JAX166 (This link is being provided for informational/ educational purposes only.) The performance of this assay has not been clinically validated in patients less than 2 years old. 01/14/2021 3:46 PM EDT us Dianna Pierce MD LAB BLOOD ORDERABLES Final Re sult [facility] [address] from Last 3 Months or Most Recently Relevant to Health Maintenance Additional Health Concerns Active Problems Noted Date Diagnosed Date Help patients manage their type 2 diabetes 05/21 Patient has chronic kidney disease 05/21/2025 Patient has chronic kidney disease 05/27/2025 Patient has chronic kidney disease 05/28/2025 Insurance [facility] [facility] Care Teams Core Checker Relationship Specialty Start Date End Date Radha Bravo MD [address] [place] [id number] PCP - General Family Medicine 03/08/21
--- OUTSIDE RECORDS SUMMARY | 2025-05-29 05:30 | XMS_ITS | Patient Health Record ---
Author Organization [facility] [place] Address [address] [place] [address] Care Team Providers Care Skein Inspector Name Role Phone Radha Bravo M.D. Primary Care Provider Syed Chan [facility] [phone] Results Component Value Reference Range Flag Notes Prothrombin Time INR Reviewed date:12/16/2024 09:37:21 PM Interpretation: Performing Lab:[facility], [address] [place] [phone] Notes/Report: Prothrombin Time 15.7 10.9-12.4 SEC H INTERNATIONAL NORM RATIO 1.4 0.9-1.1 H INTERNATIONAL NORMALIZED RATIO (INR) REFERENCE RANGES Reference [...] Panel Reviewed date:12/16/2024 09:37:32 PM Interpretation: Performing Lab:[facility], [address] [place] [address] Notes/Report: Bilirubin Total 1.2 0.0-1.0 mg/dL H Bilirubin Direct 0.7 0.0-0.5 mg/dL H Aspartate Amino Transferase 44 5-37 U/L H Alanine Aminotransferase 14 0-40 U/L N Total Protein 6.1 6.5-8.0 g/dL L Albumin Level 2.7 3.5-5.0 g/dL L Alkaline Phosphatase 128 39-117 U/L H Basic Metabolic Panel Reviewed date:12/16/2024 09:35:32 PM Interpretation: Performing Lab:[facility], [address] [place] [address] Notes/Report: Sodium 135 135-145 mmol/L N Potassium 4.0 3.3-5.1 mmol/L N Chloride 98 96-108 mmol/L N Carbon Dioxide 28 22-29 mmol/L N Anion Gap 13 12-20 N Blood Urea Nitrogen 8 9-16 mg/dL L Creatinine 0.82 0.5-1.4 mg/dL N Creatinine Clr Calc Pharmacy 209.0 eGFR (calculated [...] 15 mL/min/1.73m2 Glucose Random 158 60-115 mg/dL H Calcium 8.1 8.4-10.2 mg/dL L Magnesium Reviewed date:12/16/2024 09:37:05 PM Interpretation: Performing Lab:[address] [address] Notes/Report: Magnesium 1.9 1.6-2.6 mg/dL N Lipase Reviewed date:12/16/2024 09:35:17 PM Interpretation: Performing Lab:[address] [address] Notes/Report: Lipase 196 8-78 U/L H US abdomen limited Reviewed date:12/16/2024 09:35:09 PM Interpretation: Performing Lab: Notes/Report: [address] [address] Ultrasound Report Signed Patient: Chato Dickinson MR#: [id number] : 1995 Acct:[id number] Age/Sex: 29 / M ADM Date: 12/08/24 Loc: HO.S3 362-[address]: Ananth Rasmussen MD Ordering Physician: Syed Eisenberg MD Date of Service: 12/14/24 Procedure(s): US abdomen limited Accession Number(s): [id number] cc: Physician,Unknown ; Syed Eisenberg MD EXAMINATION: [...] 12/16/24 0905 DD/ 0756 TD/TT: 12/14/24 0801 It Programmer Analyst: Complete Blood Count Auto Di ff Reviewed date:12/24/2024 09:36:31 AM Interpretation: Performing Lab:[facility], [address] [place] [phone] Notes/Report: White Blood Count 9.6 4.8-10.8 X10*3/uL N Red Blood Count 3.75 4.60-5.80 X10*6/uL L Hemoglobin 9.4 14.0-18.0 g/dl L Hematocrit 29.9 42.0-52.0 % L Mean Corpuscular Volume 79.7 80.0-98.0 fL L Mean Corpuscular Hemoglobin 25.1 27.0-33.0 pg L Mean Corpuscular HGB Conc 31.4 31.0-36.0 g/dl N Red Cell Distribution Width 14.6 11.0-16.0 % N Platelet Count 592 160-400 X10*3/uL H Mean Platelet Volume 9.1 9.4-12.4 fL L Neutrophils Percent Auto 69.2 45-73 % N Imm Gran Pct Auto 2.3 0.0-0.4 % H Lymphocytes Percent Auto 12.3 20-40 % L Monocytes Percent Auto 12.3 2-11 % H Eosinophils Percent Auto 3.3 0-4 % N Basophils Percent Auto 0.6 0-2 % N NRBC Pct Auto 0.0 0.0-0.2 /100WBC N Neutrophils Absolute Auto 6.6 2.0-8.3 x10*3/uL N Imm Gran Abs Auto 0.22 0.00-0.03 X10*3/uL H Lymphocytes Absolute Auto 1.2 1.2-4.9 X10*3/uL N Monocytes Absolute Auto 1.2 0.1-1.2 X10*3/uL N Eosinophils Absolute Auto 0.3 0.0-0.4 X10*3/uL N Basophils Absolute Auto 0.1 0.0-0.2 X10*3/uL N NRBC Abs Auto 0.000 0.0-0.012 X10*3/uL N Prothrombin Time INR Reviewed date:12/24/2024 09:36:13 AM Interpretation: Performing Lab:[address] [address] Notes/Report: Prothrombin Time 17.0 10.9-12.4 SEC H INTERNATIONAL NORM RATIO 1.5 0.9-1.1 H INTERNATIONAL NORMALIZED RATIO (INR) REFERENCE RANGES Reference [...] Panel Reviewed date:12/24/2024 09:36:04 AM Interpretation: Performing Lab:[address] [address] Notes/Report: Bilirubin Total 0.9 0.0-1.0 mg/dL N Bilirubin Direct 0.4 0.0-0.5 mg/dL N Aspartate Amino Transferase 133 5-37 U/L H Alanine Aminotransferase 53 0-40 U/L H Total Protein 7.7 6.5-8.0 g/dL N Albumin Level 3.0 3.5-5.0 g/dL L Alkaline Phosphatase 154 39-117 U/L H Basic Metabolic Panel Reviewed date:12/24/2024 09:35:49 AM Interpretation: Performing Lab:[facility], [address] [place] [phone] Notes/Report: Sodium 136 135-145 mmol/L N Potassium 4.3 3.3-5.1 mmol/L N Chloride 103 96-108 mmol/L N Carbon Dioxide 24 22-29 mmol/L N Anion Gap 13 12-20 N Blood Urea Nitrogen 13 9-16 mg/dL N Creatinine 0.76 0.5-1.4 mg/dL N Creatinine Clr Calc Pharmacy 214.7 eGFR (calculated [...] 15 mL/min/1.73m2 Glucose Random 114 60-115 mg/dL N Calcium 8.9 8.4-10.2 mg/dL Phosphorus Reviewed date:12/24/2024 09:35:26 AM Interpretation: Performing Lab:[facility], [address] [place] [phone] Notes/Report: Phosphorus 5.4 2.7-4.5 mg/dL H Magnesium Reviewed date:12/24/2024 09:35:02 AM Interpretation: Performing Lab:[facility], [address] [place] [address] Notes/Report: Magnesium 1.7 1.6-2.6 mg/dL N Lipase Reviewed date:12/24/2024 09:34:54 AM Interpretation: Performing Lab:[facility], [address] [place] [address] Notes/Report: Lipase 237 8-78 U/L H CDiff Gene PCR Reviewed date:12/24/2024 06:33:34 PM Interpretation: Performing Lab:[facility], [address] [place] [phone] Notes/Report: CDiff Gene PCR NEGATIVE Negative If C. difficile strongly suspected despite one negative test, a second test may be sent vs. empiric treatment for C. difficile infection. CT abdomen pelvis w con Reviewed date:12/26/2024 12:57:44 AM Interpretation: Performing Lab: Notes/Report: [address] [place] [address] CT Scan Report Signed Patient: Chato Dickinson MR#: M [id number] : 1995 Acct:[id number] Age/Sex: 29 / M ADM Date: 12/08/24 Loc: HO.S3 362-[address]: Perla Childs GLOBAL CATEGORY MANAGER Ordering Physician: Syed Eisenberg MD Date of Service: 12/23/24 Procedure(s): CT abdomen pelvis w IV con Accession Number(s): [id number] cc: Physician,Unknown ; Syed Eisenberg MD Report Number: [id number]: Total DLP = 1706.00 mGy-cm CLINICAL HISTORY: [...] signed by Gregg Mccoy MD in OV> 12/24/24 0014 DD/ TD/TT: 12/24/2412 It Programmer Analyst: Hold Lav - Possible Hematolo gy Reviewed date:12/26/2024 11:21:10 PM Interpretation: Performing Lab:[facility], [address] [place] [address] Notes/Report: Hold Lav - Possible Hematology SEE NOTE Specimen will be held untested for 8 hours. Call Hematology if testing is desired. Prothrombin Time INR Reviewed date:12/26/2024 01:36:40 PM Interpretation: Performing Lab:[facility], [address] [place] [address] Notes/Report: Prothrombin Time 17.2 10.9-12.4 SEC H INTERNATIONAL NORM RATIO 1.5 0.9-1.1 H INTERNATIONAL NORMALIZED RATIO (INR) REFERENCE RANGES Reference [...] Panel Reviewed date:12/26/2024 01:37:31 PM Interpretation: Performing Lab:[facility], [address] [place] [phone] Notes/Report: Bilirubin Total 0.7 0.0-1.0 mg/dL N Bilirubin Direct 0.4 0.0-0.5 mg/dL N Aspartate Amino Transferase 107 5-37 U/L H Alanine Aminotransferase 55 0-40 U/L H Total Protein 8.0 6.5-8.0 g/dL N Albumin Level 3.1 3.5-5.0 g/dL L Alkaline Phosphatase 146 39-117 U/L H Basic Metabolic Panel Reviewed date:12/26/2024 11:20:53 PM Interpretation: Performing Lab:[facility], [address] [place] [phone] Notes/Report: Sodium 136 135-145 mmol/L N Potassium 4.3 3.3-5.1 mmol/L N Chloride 101 96-108 mmol/L N Carbon Dioxide 24 22-29 mmol/L N Anion Gap 15 12-20 N Blood Urea Nitrogen 15 9-16 mg/dL N Creatinine 0.74 0.5-1.4 mg/dL N Creatinine Clr Calc Pharmacy 217.5 eGFR (calculated [...] 15 mL/min/1.73m2 Glucose Random 148 60-115 mg/dL H Calcium 9.4 8.4-10.2 mg/dL N Phosphorus Reviewed date:12/26/2024 11:20:22 PM Interpretation: Performing Lab:[facility], [address] [place] [phone] Notes/Report: Phosphorus 5.1 2.7-4.5 mg/dL H Magnesium Reviewed date:12/26/2024 11:20:13 PM Interpretation: Performing Lab:[facility], [address] [place] [phone] Notes/Report: Magnesium 1.8 1.6-2.6 mg/dL N CT abdomen pelvis w con Reviewed date:12/29/2024 02:36:22 PM Interpretation: Performing Lab: Notes/Report: [address] [address] [address] Scan Report Signed Patient: Chato Dickinson MR#: M [id number] : 1995 Acct:[id number] Age/Sex: 29 / M ADM Date: 12/08/24 Loc: HO.S3 362-[address]: Perla Childs NP Ordering Physician: Syed Eisenberg MD Date of Service: 12/28/24 Procedure(s): CT abdomen pelvis w IV con Accession Number(s): [id number] cc: Physician,Unknown ; Syed Eisenberg MD Report Number: [id number]: Total DLP = 1283.00 mGy-cm CLINICAL HISTORY: [...] 12/29/24 1017 DD/ 1016 TD/TT: 12/29/24 1016 It Programmer Analyst: Complete Blood Count Auto Di ff Reviewed date:03/30/2025 05:49:44 PM Interpretation: Performing Lab:[facility], [address] [place] [address] Notes/Report: White Blood Count 3.8 4.8-10.8 X10*3/uL L Red Blood Count 5.37 4.60-5.80 X10*6/uL N Hemoglobin 13.6 14.0-18.0 g/dl L Hematocrit 40.3 42.0-52.0 % L Mean Corpuscular Volume 75.0 80.0-98.0 fL L Mean Corpuscular Hemoglobin 25.3 27.0-33.0 pg L Mean Corpuscular HGB Conc 33.7 31.0-36.0 g/dl N Red Cell Distribution Width 15.4 11.0-16.0 % N Platelet Count 265 160-400 X10*3/uL Mean Platelet Volume 9.4 9.4-12.4 fL N Neutrophils Percent Auto 38.9 45-73 % L Imm Gran Pct Auto 0.3 0.0-0.4 % N Lymphocytes Percent Auto 45.6 20-40 % H Monocytes Percent Auto 11.5 2-11 % H Eosinophils Percent Auto 2.4 0-4 % N Basophils Percent Auto 1.3 0-2 % N NRBC Pct Auto 0.0 0.0-0.2 /100WBC N Neutrophils Absolute Auto 1.5 2.0-8.3 x10*3/uL L Imm Gran Abs Auto 0.01 0.00-0.03 X10*3/uL N Lymphocytes Absolute Auto 1.7 1.2-4.9 X10*3/uL N Monocytes Absolute Auto 0.4 0.1-1.2 X10*3/uL N Eosinophils Absolute Auto 0.1 0.0-0.4 X10*3/uL N Basophils Absolute Auto 0.1 0.0-0.2 X10*3/uL N NRBC Abs Auto 0.000 0.0-0.012 X10*3/uL N Liver Panel Reviewed date:03/30/2025 05:49:24 PM Interpretation: Performing Lab:[address] [address] Notes/Report: Bilirubin Total 0.7 0.0-1.0 mg/dL N Bilirubin Direct 0.2 0.0-0.5 mg/dL N Aspartate Amino Transferase 22 5-37 U/L N Alanine Aminotransferase 24 0-40 U/L N Total Protein 7.3 6.5-8.0 g/dL N Albumin Level 4.3 3.5-5.0 g/dL N Alkaline Phosphatase 88 39-117 U/L N Basic Metabolic Panel Reviewed date:03/30/2025 05:49:14 PM Interpretation: Performing Lab:[address] [address] Notes/Report: Sodium 139 135-145 mmol/L N Potassium 4.1 3.3-5.1 mmol/L N Chloride 108 96-108 mmol/L N Carbon Dioxide 28 22-29 mmol/L N Anion Gap 7 12-20 L Blood Urea Nitrogen 13 9-16 mg/dL N Creatinine 0.78 0.5-1.4 mg/dL N Estimated Glomerular Filt Rate > 60 Chronic Kidney Disease: Estimated GFR < 60 mL/min/1.73m2 Severe Kidney Disease: Estimated GFR < 15 mL/min/1.73m2 Glucose Random 125 60-115 mg/dL H Calcium 9.2 8.4-10.2 mg/dL N Triglycerides Reviewed date:03/30/2025 05:48:55 PM Interpretation: Performing Lab:[facility], [address] [place] [address] Notes/Report: Triglycerides 138 <150 mg/dL Desirable Triglyceride: less than 150 mg/dL Borderline High Triglyceride 150-199 mg/dL High Triglyceride: 200-499 mg/dL Very High Triglyceride: greater than or equal to 5OO mg/dL Amylase Reviewed date:03/30/2025 05:48:26 PM Interpretation: Performing Lab:[facility], [address] [place] [address] Notes/Report: Amylase 86 28-100 U/L N Lipase Reviewed date:03/30/2025 05:48:19 PM Interpretation: Performing Lab:[facility], [address] [place] [address] Notes/Report: Lipase 35 8-78 U/L N CT abdomen pelvis w con Reviewed date:04/22/2025 05:03:55 PM Interpretation: Performing Lab: Notes/Report: [address] [address] [address] Scan Report Signed Patient: Chato Dickinson MR#: [id number] : 1995 Acct:[id number] Age/Sex: 29 / M ADM Date: 04/22/25 Loc: HO.CT Attending Dr: Syed Eisenberg MD Ordering Physician: Syed Eisenberg MD Date of Service: 04/22/25 Procedure(s): CT abdomen pelvis w IV con Accession Number(s): [id number] cc: Radha Bravo; Syed Eisenberg MD Report Number: [id number]: Total DLP = 908.00 mGy-cm Reason for [...] 04/22/25 1554 DD/ 1503 TD/TT: 04/22/25 1535 It Programmer Analyst: Reason For Referral Reason abdominal pain Referring Provider First Name Radha Referring Provider Last Name [place] Referred Organization [facility] Referred Provider Syed Eisenberg Referred Address [address] [facility] [address],[place], [place],[address],[place] Referred Provider Specialty Gastroentero logy Referral Priority Routine Problems Problem Type SNOMED Code ICD Code Onset Dates Problem Status W/U Status Risk Notes Problem Pancreatitis (16481199) Pancreatitis (K85.90) Active confirmed Problem Pancreatic pseudocyst (382984705) Pancreatic pseudocyst (K86.3) Active confirmed Encounters Encounter Location Date Provider Diagnosis [facility] [address] [place] [address] 01/09/2025 Syed Eisenberg Pancreatitis K85.90 and Pancreatic pseudocyst K86.3 [facility] [address] [place] [phone] 02/27/2025 Syed Eisenberg [facility] [address] [place] [phone] 03/12/2025 Syed Eisenberg Pancreatitis K85.90 and Pancreatic pseudocyst K86.3 [facility] [address] [place] [phone] 03/13/2025 Syed Eisenberg [facility] [address] [place] [phone] 04/22/2025 Syed Eisenberg Assessments Encounter Date Diagnosis (ICD [...] 7 PROFILE 03/12/2025 BUN 01/09/2025 LIVER PROFILE 01/09/2025 LIVER PROFILE 03/12/2025 CBC w DIFF 03/12/2025 CBC w DIFF 01/09/2025 CT ABD & PELVIS WITH CONTRAST 01/09/2025 CT ABD & PELVIS WITH CONTRAST 03/12/2025 Prothrombin Time INR 01/09/2025 Creatinine 01/09/2025 Triglycerides 03/12/2025 Amylase 01/09/2025 Amylase 03/12/2025 Lipase 03/12/2025 Lipase 01/09/2025 Next Appt Details Provider Name:Syed Eisenberg , 07/08/2025 03:00:00 PM, [address] [place] [address], [address], [place], [address], Insurance Providers Payer Name Payer Address Payer Phone Subscriber Number Group Number Insured Name Patient Relationship to Insured Coverage Start Date Coverage End Date [facility] [facility] [facility] [address] [place] [phone] [id number] CHATO DICKINSON Self - patient is the insured
== END 2025-05-29 00:36 | disposition home or self-care (01) ==
PROVIDERS: Emergency Provider Emergency Medicine
DX: S69.82XA Other specified injuries of left wrist, hand and finger(s), initial encounter (principal); W23.0XXA Caught, crushed, jammed, or pinched between moving objects, initial encounter; Y93.67 Activity, basketball; Y92.9 Unspecified place or not applicable; Y99.9 Unspecified external cause status
CPT/HCPCS: 73140; 99282; 99283

== ENCOUNTER → 2025-05-28 21:03 | Outpatient (BNV) | payer MEDICAID, SELFPAY | PROVIDERS: Visit Provider Radiology Diagnostic Radiology | DX: M79.645 Pain in left finger(s) (principal) | CPT/HCPCS: 73140 ==

== ENCOUNTER 2025-06-02 14:25 | Outpatient (AMB) | payer MEDICAID, SELFPAY ==
--- NOTE | 2025-06-02 14:38 | A.OFFVIS_ITS ---
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 Patient reported to [facility] he was playing basketball when the ball struck the tip of his finger on an outstretched hand. He was placed in a finger splint. Today, patient reports he is unable to fully stretch his finger. He complains of pain at the joints of his left small finger as well as numbness on the volar aspect of his left small finger. He is taking Tylenol with some relief. He denies any previous injuries or surgeries to the left hand. 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 Patient reported to [facility] he was playing basketball when the ball struck the tip of his finger on an outstretched hand. He was placed in a finger splint. Today, patient reports he is unable to fully stretch his finger. He complains of pain at the joints of his left small finger as well as numbness on the volar aspect of his left small finger. Patient reports that his pain is worst at the D IP and PIP joints of the left small finger. He is taking Tylenol with some relief. He denies any previous injuries or surgeries to the left hand. 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 [facility] Medical History Skull lesion Hypertriglyceridemia Acute pancreatitis Diabetes mellitus Asthma No known health problems Family History Maternal Grandmother Diabetes Social History (Updated 06/02/25 @ 14:43 by KATE Amaral) Household Members: Spouse Housing: Apartment Do you presently have visiting nurse or other home services: No Alcohol intake: never Comment: Spouse at bedside Patient Tobacco Use Status: Never used Tobacco service: No Current occupational status: employed Current occupation: rt handed, [employer] Review of Systems Const All systems reviewed & are unremarkable except as noted in HPI and below Physical Exam Vital Signs: BMI result Body Mass Index 40.7 Extrem Other: Patient is alert, oriented, and in no acute distress. Neuro: Normal sensation of the tips of all digits of the left hand at this time Vascular: Cap refill brisk Pain: Significant tenderness to palpation of the distal aspect, D IP, and PIP joints of the left small finger Pain with range of motion attempts of the left small finger Patient reports pain with passive range of motion of the D IP joint of the left small finger ROM: Patient is able to actively flex the D IP joint of the left small finger Not able to actively extend fully at the D IP Pain with passive range of motion of the IP joint of the left small finger Skin: No lacerations or abrasions. General: No ecchymosis, erythema, or evidence of infection. Psych: Appears grossly normal Affect normal Attitude cooperative Office Procedures AMB Fracture Care Fracture Billing Code: Fracture Billing Code Results Reviewed Results Reviewed: X-rays obtained in the office today and independently reviewed by me, Aman Sharp PA-C, demonstrate area of lucency on the volar aspect of the base of the middle phalanx of the left small finger concerning for nondisplaced fracture. Assessment & Plan Assessment & Plan (1) Mallet deformity of left little finger: Code(s): M20.012 - Mallet finger of left finger(s) Category: Medical (2) Fracture of middle phalanx of left little finger: Code(s): S62.627A - Displaced fracture of middle phalanx of left little finger, initial encounter for closed fracture Category: Medical Plan 1. Left small finger mallet finger 2. Left small finger middle phalanx base fracture, avulsion, nondisplaced Date of injury 05/28/2025 Patient is educated about these injuries Patient is educated about the typical recovery course At this time, patient is advised on 24 hour day 7 day a week splinting of the D IP joint of the left small finger This should last for 6 weeks Patient is also advised that he should anat tape the ring and small fingers together to act as a moving splint for the fracture at the base of the middle phalanx 2 lb weight limit in left hand, patient may return to work with this restriction Patient understands this and is amenable to this plan Follow-up in 3 weeks for reassessment, sooner with any acute concerns Orders: Orders XR hand LT min 3V Today M79.642 - Pain in left hand Medications: Discontinued docusate sodium Discontinued Reason: Patient Completed Course 100 mg PO BID 20 caps 0RF polyethylene glycol 3350 Discontinued Reason: Patient Completed Course 17 grams PO BID PRN 100 ea 0RF constipation tramadol Discontinued Reason: Patient Completed Course 50 mg PO Q8H PRN 10 tabs 0RF pain Coding Level of Care Code New Pt Level 3 (06568) Diagnoses Mallet deformity of left little finger M20.012 Fracture of middle phalanx of left little finger S62.627A CPT Codes Fracture Care - Fracture Billing Code: Fracture Billing Code ([id number])
[2025-06-02 14:39] VITALS: BMI 40.7
--- OUTSIDE RECORDS SUMMARY | 2025-06-02 19:20 | XMS_ITS | Clinical Summary ---
Author Organization [employer] Address [address] [facility] [facility] [address] [place] [address] Care Team Providers Care Protein Specialist Name Role Phone Radha Bravo MD Primary Care Provider [phone] Allergies Active Allergy Reactions Criticality Noted Date [...] 025 Active Blood Glucose Monitoring Suppl (FreeStyle Coldwater Lite) w/Device kit Use to test blood sugar 3 times daily 1 kit Active Continuous Glucose Assembler Body (FreeStyle Veronica 3 [place]) device 1 each Once per day. Use [...] Type Department Care Team Description 05/28/2025 Telephone [facility] [address] [place] [address] Radha Bravo MD PA for CGM sensors 05/18/2025 Refill [facility] [address] [place] [phone] Marcelle Shaw DO 05/16/2025 Refill [facility] [address] [place] [phone] Marcelle Shaw DO 05/12/2025 2:45 PM EST Office Visit [facility] [address] [place] [phone] Radha Bravo MD Obesity, Class III, BMI 40-49.9 (morbid obesity) (HCC) (Primary Dx); Type 2 diabetes mellitus without complication, without long-term current use of insulin (HCC); Encounter for vaccination; Encounter for immunization; Glomus jugulare tumor (CMS/HCC) (HCC); History of pancreatitis; Hypertriglyceridemia 05/12/2025 Travel 05/08/2025 Telephone [facility] [address] [place] [address] Radha Bravo MD chart prep 05/05/2025 Patient Outreach [facility] [address] [place] [phone] Radha Bravo MD Pre-visit Planning (SDOH screening completed on 02/18/25 ) 04/30/2025 Telephone [facility] [address] [place] [phone] Radha Bravo MD [facility] (I called the patient, regarding a PE Form, from [facility]. I reached a voicemail, and left a message informing him that he needs to have [facility], before the form is completed. He may come to the [facility] lab at his convenience. He is scheduled for a PE on 05/12/25 at 2:45.) 04/29/2025 Telephone [facility] [address] [place] [phone] Radha Bravo MD 04/25/[address] [address] Radha Bravo MD Encounter for screening for respiratory tuberculosis 04/23/2025 Orders Only [facility] [address] [place] [address] Ines Cooney MD 04/18/2025 Telephone [facility] [address] [place] [phone] Hailey Buenrostro, COLETTE 04/14/2025 Telephone [facility] [address] [place] [phone] Marcelle Shaw DO Med Refill 03/28/2025 Orders Only GENERIC EXTERNAL DATA DEPARTMENT Provider, Generic External Data 03/17/2025 Telephone [facility] [address] [place] [phone] Radha Bravo MD Letter for School/Work 03/14/2025 Refill [facility] [address] [place] [phone] Marcelle Shaw DO 03/14/2025 Telephone [facility] [address] [place] [phone] Radha Bravo MD Referral 03/12/2025 Population Health Risk Score [facility] ([facility]) Department [address] [place] [phone] Provider, Population Health Generic 03/11/[address] [address] Kathy Ayoub RN Results 03/07/2025 1:45 PM EDT Office Visit [address] [address] Radha Bravo MD History of pancreatitis (Primary [...] Generic External Data 03/07/2025 Travel 03/05/[address] [address] Radha Bravo MD chart prep 03/05/2025 Travel 03/03/2025 Orders Only [address] [address] Marcelle Shaw DO Hypertriglyceridemia (Primary Dx) from Last 3 Months Immunizations Immunization Administration [...] Plan Patient has chronic kidney disease No Dianna Marcum Patient has chronic kidney disease Care Plan Patient has chronic kidney disease No Ghazala Perez, RN Patient has chronic kidney disease Care Plan Patient has chronic kidney disease No Ghazala Perez, sander setter Procedure Name Priority Date/Time Associated Diagnosis Comments [...] resultswithin the time period is included. Pathologist [facility] Glucose Blood, POC 229(A) 60 - 200 mg/dL QC Media Lot # [id number] Lot# Expiration Date Blood Capillary blood specimen / Unknown 05/12/2025 3:07 PM EST Radha Bravo MD POINT OF CARE TEST ENTER/EDIT ORDERABLES Final Result * T-SPOT??.TB (04/25/2025 11:59 AM EDT) [facility] T Spot TB Negative Negative [facility] Comment:A negative test resu lt does [...] as aquantitative test. TS PANEL A 0 [facility] TS PANEL B 0 [facility] Negative Control Passed [facility] Positive Control Passed [facility] Comment:For additional infor aruna, please refer tohttp://education.[facility]/faq/MPI020(This link is being provided for informational/educational purposes only.)THIS TEST WAS PERFORMED AT:[employer] [id number] [place] [id number] Joaquim PERERA MD,PHD 04/25/2025 11:5 9 AM EDT 04/25/2025 1:04 PM EDT us Radha Bravo MD LAB BLOOD ORDERABLES Final Res ult Performing Organization Address City/State/[facility] Co de Phone Number [facility] [address] [place] [phone] * CT Abdomen Pelvis w/ Contrast (04/22/2025 3:03 PM EDT) Only the most recent of2 resultswithin the time period is included. Anatomical Region Laterality Modality Body, Pelvis, Abdomen Computed T omography 04/22/2025 3:03 PM EDT Narrative 04/22/2025 3:57 PM EDT [address] [address] [address] Scan Report Signed Patient: Chato Dickinson MR#: [id number] : 1995 Acct:[id number] Age/Sex: 29 / M ADM Date: 04/22/25 Loc: HO.CT Attending Dr: Syed Eisenberg MD Ordering Physician: Syed Eisenberg MD Date of Service: 04/22/25 Procedure(s): CT abdomen pelvis w IV con Accession Number(s): [id number] cc: Radha Bravo; Syed Eisenberg MD Report Number: [id number]: Total DLP = 908.00 mGy-cm Reason for [...] 04/22/25 1554 DD/ 1503 TD/TT: 04/22/25 1535 Field Foreman: Procedure Note Donotuseinterpreter, Image - 04/22/[address] [address] [address] Scan Report Signed Patient: Chato Dickinson AMR#: [id number] : 1995Acct:[id number] Age/Sex: 29 / MADM Date: 04/22/25 Loc: HO.CT Attending Dr: Syed Eisenberg MD Ordering Physician: Syed Eisenberg MD Date of Service: 04/22/25 Procedure(s): CT abdomen pelvis w IV con Accession Number(s): [id number] cc: Radha Bravo; Syed Eisenberg MD Report Number: [id number]: Total DLP = 908.00 mGy-cm Reason for [...] 04/22/25 1554 DD/ 1503 TD/TT: 04/22/25 1535 Field Foreman: [facility] External Provider IMG CT PROCEDURES Final Result * Referral to Gastroenterology (04/22/2025) Result [facility] Radha Bravo MD OUTPATIENT REFERRAL ORDERABLES Final Result * (ABNORMAL) CBC auto differential (03/28/2025 12:16 PM EDT) Only the most recent of2 resultswithin the time period is included. White Blood Count 3.8(L) 4.8 - 10.8 X10*3/uL [facility] Red Blood Count 5.37 4.60 - 5.80 X10*6/uL [facility] Hemoglobin 13.6(L) 14.0 - 18.0 g/dl [facility] Hematocrit 40.3(L) 42.0 - 52.0 % [facility] Mean Corpuscular Volume 75.0(L) 80.0 - 98.0 fL [facility] Mean Corpuscular Hemoglobin 25.3(L) 27.0 - 33.0 pg [facility] Mean Corpuscular HGB Conc 33.7 31.0 - 36.0 g/dl [facility] Red Cell Distribution Width 15.4 11.0 - 16.0 % [facility] Platelet Count 265 160 - 400 X10*3/uL [facility] Mean Platelet Volume 9.4 9.4 - 12.4 fL [facility] Neutrophils Percent Auto 38.9(L) 45 - 73 % [facility] Imm Gran Pct Auto 0.3 0.0 - 0.4 % [facility] Lymphocytes Percent Auto 45.6(H) 20 - 40 % [facility] Monocytes Percent Auto 11.5(H) 2 - 11 % [facility] Eosinophils Percent Auto 2.4 0 - 4 % [facility] Basophils Percent Auto 1.3 0 - 2 % [facility] NRBC Pct Auto 0.0 0.0 - 0.2 /100WBC [facility] Neutrophils Absolute Auto 1.5(L) 2.0 - 8.3 x10*3/uL [facility] Imm Gran Abs Auto 0.01 0.00 - 0.03 X10*3/uL [facility] Lymphocytes Absolute Auto 1.7 1.2 - 4.9 X10*3/uL [facility] Monocytes Absolute Auto 0.4 0.1 - 1.2 X10*3/uL [facility] Eosinophils Absolute Auto 0.1 0.0 - 0.4 X10*3/uL [facility] Basophils Absolute Auto 0.1 0.0 - 0.2 X10*3/uL [facility] NRBC Abs Auto 0.000 0.0 - 0.012 X10*3/uL [facility] 03/28/2025 12:1 6 PM EDT 03/28/2025 12:16 PM EDT us Generic External Data Provider LAB BLOOD ORDERAB LES Final Result [facility] [address] [place] [phone] * Triglycerides (03/28/2025 12:16 PM EDT) Triglycerides 138 <150 mg/dL [facility] Comment:Desirable Triglyceri de: less than 150 mg/dLBorderline High Triglyceride 150-199 mg/dLHigh Triglyceride: 200-499 mg/dLVery High Triglyceride: greater than or equal to 5OO mg/dL 03/28/2025 12:1 6 PM EDT 03/28/2025 12:16 PM EDT Generic External Data Provider LAB BLOOD ORDERAB LES Final Result Performing Organization Address [facility] Co de Phone Number [facility] [address] [place] [phone] * Lipase (03/28/2025 12:16 PM EDT) Only the most recent of3 resultswithin the time period is included. Lipase 35 8 - 78 U/L [facility] 03/28/2025 12:1 6 PM EDT 03/28/2025 12:16 PM EDT Generic External Data Provider LAB BLOOD ORDERAB LES Final Result Performing Organization Address [facility] Co de Phone Number [facility] [address] [place] [phone] * Amylase (03/28/2025 12:16 PM EDT) Only the most recent of2 resultswithin the time period is included. Amylase 86 28 - 100 U/L [facility] 03/28/2025 12:1 6 PM EDT 03/28/2025 12:16 PM EDT Generic External Data Provider LAB BLOOD ORDERAB LES Final Result Performing Organization Address [facility] de Phone Number [facility] [address] [place] [phone] * Hepatic Function Panel (03/28/2025 12:16 PM EDT) Only the most recent of2 resultswithin the time period is included. Bilirubin, Total 0.7 0.0 - 1.0 mg/dL [facility] Bilirubin, Direct 0.2 0.0 - 0.5 mg/dL [facility] Aspartate Amino Transferase 22 5 - 37 U/L [facility] Alanine Aminotransferase 24 0 - 40 U/L [facility] Total Protein 7.3 6.5 - 8.0 g/dL [facility] Albumin Level 4.3 3.5 - 5.0 g/dL [facility] Alkaline Phosphatase 88 39 - 117 U/L [facility] 03/28/2025 12:1 6 PM EDT 03/28/2025 12:16 PM EDT us Generic External Data Provider LAB BLOOD ORDERAB LES Final Result [facility] [address] [place] [phone] * (ABNORMAL) Basic Metabolic Panel (03/28/2025 12:16 PM EDT) Only the most recent of2 resultswithin the time period is included. Sodium 139 135 - 145 mmol/L [facility] Potassium 4.1 3.3 - 5.1 mmol/L [facility] Chloride 108 96 - 108 mmol/L [facility] Carbon Dioxide 28 22 - 29 mmol/L [facility] Anion Gap 7(L) 12 - 20 [facility] Urea Nitrogen (BUN) 13 9 - 16 mg/dL [facility] Creatinine, Serum 0.78 0.5 - 1.4 mg/dL [facility] Estimated Glomerular Filt Rate >60 [facility] Comment:Chronic Kidney Disea se: Estimated GFR < 60 mL/min/[id number] Kidney Disease: Estimated GFR < 15 mL/min/1.73m2 Glucose 125(H) 60 - 115 mg/dL [facility] Calcium 9.2 8.4 - 10.2 mg/dL [facility] 03/28/2025 12:1 6 PM EDT 03/28/2025 12:16 PM EDT us Generic External Data Provider LAB BLOOD ORDERAB LES Final Result Performing Organization Address [facility]/ZIP Co de Phone Number [facility] [address] [place] [phone] * Albumin, Random Urine W/Creatinine (03/07/2025 2:26 PM EDT) Creatinine, Urine 178.97 mg/dL [facility] Microalbumin Urine 9.0 mg/L [facility] Microalbum Creatinine Ratio Ur 5.0 <30 ug/mg cr [facility] Comment:Albumin/Creatinine R atio Reference Ranges: Normal: < 30 ug/mg creatinine Microalbuminuria: 30 - 300 ug/mg creatinineClinical Albuminuria: > 300 ug/mg creatinine Urine (Urine, Random) 03/07/2025 2:26 PM EDT 03/07/2025 4:10 PM EDT Marcelle Shaw DO LAB URINE ORDERABLES Final R esult Performing Organization Address [facility] Co de Phone Number [facility] [address] [place] [phone] * (ABNORMAL) Hemoglobin A1c (03/07/2025 2:26 PM EDT) Hemoglobin A1c 6.5(H) <6.0 % [facility] Comment:Hemoglobin A1C Refer ence Range Adults: 4.8 - 6.0 % Non diabetic: < 6.0 % Goal: < 7.0 %Additional Action Suggested: > 8.0 %Note: Hemoglobin A1c results are invalid for patients with abnormal amounts of HbF. Blood transfusions may impact the HbA1c concentration in the patient sample. Estimated Average Glucose 140 mg/dL [facility] Comment:eAG = Estimated ave rage glucose which is %A1C expressed asaverage glucose, using the formula of the Z0P-EmaijfoMnaityy Glucose study (ADAG), Diabetes Care, Vol.31,#8,2007 Blood Venous blood specimen / Unknown 03/07/2025 2:26 PM EDT 03/07/2025 5:25 PM EDT us Marcelle Shaw DO LAB BLOOD ORDERABLES Final R esult [facility] [address] [place] [phone] * (ABNORMAL) Lipid Panel, Standard (03/07/2025 2:26 PM EDT) Only the most recent of2 resultswithin the time period is included. Triglycerides 215(H) <150 mg/dL [facility] Comment:Desirable Triglyceri de: less than 150 mg/dLBorderline High Triglyceride 150-199 mg/dLHigh Triglyceride: 200-499 mg/dLVery High Triglyceride: greater than or equal to 5OO mg/dL Cholesterol 122 <200 mg/dL [facility] Comment:Desirable Cholestero l: less than 200 mg/dLBorderline High Cholesterol: 200-239 mg/dLHigh Cholesterol: greater than 239 mg/dL LDL Cholesterol Calculated 56 <100 mg/dL [facility] Comment:Desirable LDL: less than 100 mg/dLNear Optimal/Above Optimal LDL: 110- 129 mg/dLBorderline High LDL: 130-159 mg/dLHigh LDL: 160-189 mg/dLVery High LDL: greater than or equal to 190 mg/dL HDL Cholesterol 23(L) >40 mg/dL [facility] Comment:Desirable HDL: great er than 40 mg/dL Note: This HDL assay may give artificially low results in patients with liver disease. 03/07/2025 2:26 PM EDT 03/07/2025 5:25 PM EDT us Generic External Data Provider LAB BLOOD ORDERAB LES Final Result Performing Organization Address City/[facility]/ZIP Co de Phone Number [facility] [address] [place] [phone] * (ABNORMAL) Comprehensive Metabolic Panel (03/07/2025 2:26 PM EDT) Sodium 140 135 - 145 mmol/L [facility] Potassium 4.1 3.3 - 5.1 mmol/L [facility] Chloride 106 96 - 108 mmol/L [facility] Carbon Dioxide 25 22 - 29 mmol/L [facility] Anion Gap 13 12 - 20 [facility] Urea Nitrogen (BUN) 16 9 - 16 mg/dL [facility] Creatinine, Serum 0.95 0.5 - 1.4 mg/dL [facility] Estimated Glomerular Filt Rate >60 [facility] Comment:Chronic Kidney Disea se: Estimated GFR < 60 mL/min/1.42h6Sfrqrl Kidney Disease: Estimated GFR < 15 mL/min/1.73m2 Glucose 191(H) 60 - 115 mg/dL [facility] Calcium 9.6 8.4 - 10.2 mg/dL [facility] Bilirubin, Total 0.6 0.0 - 1.0 mg/dL [facility] Aspartate Amino Transferase 30 5 - 37 U/L [facility] Alanine Aminotransferase 22 0 - 40 U/L [facility] Total Protein 7.9 6.5 - 8.0 g/dL [facility] Albumin Level 4.4 3.5 - 5.0 g/dL [facility] Alkaline Phosphatase 75 39 - 117 U/L [facility] 03/07/2025 2:26 PM EDT 03/07/2025 5:25 PM EDT us Generic External Data Provider LAB BLOOD ORDERAB LES Final Result [facility] [address] [place] [phone] * (ABNORMAL) POCT HGB A1C (03/07/2025 [...] HEPATITIS C ANTIBODY NON-REACT CORY NON-REACT CORY [facility] INDEX 0.01 <1.00 [facility] Comment: HCV antibody was non-reactive. There is no laboratory evidence of HCV infection. In most cases, no further action is required. However, if recent HCV exposure is suspected, a test for HCV RNA (test code 58589) is suggested. For additional information please refer to http://[employer].[facility]/faq/XNT70r1 (This link is being provided for informational/ educational purposes only.) 01/14/2021 3:46 PM EDT Dianna Pierce MD HISTORICAL/NON ORDERABLE LABS Final Result [facility] [address] * HIV 1/2 ANTIGEN/ANTIBODY,FOURTH GENERATION W/RFL (01/14/2021 3:46 PM EDT) Pathologist [facility] HIV-1/2 ANTIGEN AND ANTIBODIES, 4TH GENERATION W/ REFLEX NON-REACT CORY NON-REACT CORY [facility] Comment: HIV-1 antigen and [...] purpose. For additional information please refer to http://[employer]/faq/XQI491 (This link is being provided for informational/ educational purposes only.) The performance of this assay has not been clinically validated in patients less than 2 years old. 01/14/2021 3:46 PM EDT us Dianna Pierce MD LAB BLOOD ORDERABLES Final Re sult [facility] [address] from Last 3 Months or Most Recently Relevant to Health Maintenance Additional Health Concerns Active Problems Noted Date Diagnosed Date Help patients manage their type 2 diabetes 05/21 Patient has chronic kidney disease 05/21/2025 Patient has chronic kidney disease 05/27/2025 Patient has chronic kidney disease 05/28/2025 Insurance HSN [employer] [facility] C3 Care Teams Protein Specialist Relationship Specialty Start Date End Date Radha Bravo MD [address] [place] [phone] PCP - General Family Medicine 03/08/21
--- OUTSIDE RECORDS SUMMARY | 2025-06-02 19:20 | XMS_ITS | Data Portability ---
Author Organization [place] - [facility], Allergy Address [address] [address] Care Team Providers Care Primary Teaching Assistant Name Role Phone MICHELA SULLIVAN Primary Care [...] a tumor is associated with severe morbidity. Not available 05/14/2024 12:52:42 Plan of Treatment Reminders Order Date Submit Date Provider Last Modified By Organization Details Last Modified Time Details Appointments None recorded. Lab None recorded. Referral None recorded. Procedures None recorded. Surgeries None recorded. Imaging MRI, brain + internal auditory canal, w/wo contrast - MRI, BRAIN + INTERNAL AUDITORY CANAL, W/WO CONTRAST 2023 024 [facility] ([facility]), [address] [place], [address], 14:06:23 Medication Orders None recorded. Patient TargetsNo [...] stem, w/wo contr ast [facility]- [facility] Access ion Number : [id number] Pat[address] t Name: Chato Sinha Record Number : [id number] Date of : 1994 Date of Exam: 2023 Referr ing Physic darlene: Mynor Perera re Ear Nose [address] [facility] [place] [address] Exam: MR Brain (C-/C+ ) CPT 88723 Room Descri ption: [place] Siem Espr 1.5 HISTOR Y: Erosiv e [...] onical ly Signed By: Brent Arteaga MD [email or web address] [facility] ([facility]) [address] [facility] [place], [address], 05/21/2024 12:56:02 Result Notes Documentation Provider Name and Address Organization Details Recorded Time Mri, Brain + Brain Stem, W/wo Contrast : [facility] Accession Number: [id number] Patient Name: Chato Kaur Date of : 1995 Date of Exam: 05-16-2024 Referring Physician: Darshan Perera Ear Nose [address] [place] [address] Exam: MR Brain (C-/C+) CPT 66205 Room Description: [facility] 1.5 HISTORY: Erosive tumor on CT. 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,[place] [address], [place], [address], [facility] - [facility] 20:50:59 Conductive hearing loss of left ear 1736094951 Active 2023 SHANKAR PETERSON [address],[place] [address], [place], [address], [facility] 11:29:58 Left conductive hearing loss 9980985721635 Active 2023 SHANKAR PETERSON [address],[place] [address], [place], [address], [facility] 11:30:59 Subjective pulsatile tinnitus of left ear 1362673967837 103 Active 2023 DARSHAN PERERA MD 100 [facility],[place] [address], [place], [address], [facility] 12:51:33 Problem Notes None recorded. Procedures Surgical History Date Name Laterality Status Provider Name and Address Organization Details Recorded Time Comp Audio with Tymps & Reflexes - 89717 & 39453 completed ERASMO [address] [facility],[place] [address], [place], [address], [facility] 05/14/2024 11:29:29 Imaging Results None recorded. Procedure Notes None recorded. Medical Equipment None Reported. Allergies Allergen ID Allergen Name Allergen Category Reaction Reaction Severity Criticality Documentation Date Start Date Code Code System Note Provider Name and Address Organization Details Recorded Time 084742 metformin medicatio n Not available Not available Not available 05/14/2024 6809 RxNorm Nini amin [facility] 11:07:04 Medications Name Sig Start Date Stop [...] Available Not Available FreeStyle Lite Meter kit [place]ORI CHECK BLOOD SUGAR THREE TIMES A DAY [...] Available No t Available FreeStyle Veronica 3 [place] USE DIRECTED TO TEST BLOOD SUGAR EVERY DAY active Not Available Not Available No t Available FreeStyle Veronica 3 Plus Sensor device APPLY 1 SENSOR TOPICALLY EVERY 15 DAYS. USE DIRECTED TO TEST BLOOD SUGAR active Not Available Not Available No t Available Vitals Date Recorded Body height Body weight Provider Name and Address Organization Details Last Updated DateTime 05/14/2024 190.5 cm 458564.56 g Nini Dan [place] - [facility] 05/14/2024 11:09:49 Social History None recorded. Functional Status None recorded. Mental Status None recorded. Family History Nothing Reported. Medical History Condition Response Diabetes Y Hypertension Y Asthma Y High Cholesterol Y Past Encounters Encounter ID Performer Location Encounter Start Date Encounter Closed Date Diagnosis/Indication Diagnosis SNOMED-CT Code Diagnosis ICD10 Code Diagnosis IMO Codes Diagnosis Note [id number] DARSHAN PERERA MD [facility] [address] [address] 05/14/2024 10:59:34 05/14/2024 12:11:43 Neoplasm of glomus jugulare 765027257 D49.7 Left condu ctive hearing loss 0833486559 107 H90.12 Audiologic al evaluation results: 05/14/2024 [...] tinnitus. Subjective pulsatile tinnitus of left ear 8140007410 226890 H93.A2 Health Concerns Section Related Observation LastModified by Organization Detai ls LastModified Time None Recorded Concern Status LastModified by Organization Details LastModified Time None Recorded Advance Directives Directive None Recorded Payers Insurance Date Sequence Insurance Name Policy Number Policy Suarez Covered Member ID Suarez Member ID Guarantor Name 02/27/2025 1 [facility] NET PLAN (MEDICAID HMO) [id number] Chato Woodard [id number] Chato Kaur Notes Date Note Type [...] glomus jugulare tumor. Patient referred to [facility] neurosurgery who redirected the consult to me. Patient notes occasional pulsatile tinnitus in the left ear for the past few months. He gets chronic daily headaches primarily centered around the right occiput.. He has noticed no changes in vocal quality or strength. No troubles with swallowing. Patient comes in today accompanied by his girlfriend who is helping with Lithuanian translation. She would like to be the contact lens molder for future scheduling, and he is in agreement with this. DARSHAN PERERA MD [address] [place] [address], [place], [address], [place] - [facility] 05/14/2024 12:53:19
--- OUTSIDE RECORDS SUMMARY | 2025-06-02 19:20 | XMS_ITS | Clinical Summary ---
Author Organization [facility] Address [address] [place] [address] Phone Care Team Providers Care Security Shift Manager Name Role Phone Cinthya Briones MD Primary Care Provider [phone] Social History Tobacco Use Types Packs/Day Years [...] Depression Screening 07/10/2024 COVID-19 Vaccine (1 - 2024-2 6 season) 2025 Influenza Vaccine (#1) 2025 RSV [...] patient's age to complete this topic Insurance [facility] Care Teams Security Shift Manager Relationship Specialty Start Date End Date Cinthya Briones MD [address] [place] [address] Dr Ayala [place] [id number] PCP - General Internal Medicine 05/22/24
--- OUTSIDE RECORDS SUMMARY | 2025-06-02 19:20 | XMS_ITS | Encounter Summary ---
Author Organization [employer] Address 75 [facility] 7t [place] [address] Care Team Providers Care Bass Singer Name Role Phone Radha Bravo MD Primary Care Provider [phone] Encounter Details Date Type Department Care Team ([facility] st Contact Info) Description 04/23/2025 Orders Only [facility] [address] [place], [place] [phone] ProviderInes MD Social History Tobacco Use Types [...] documented as of this encounter Care Teams Bass Singer Relationship Specialty Start Date End Date Radha Bravo MD [address] [place] [address] PCP - General Family Medicine 03/08/21 documented as of this encounter
--- OUTSIDE RECORDS SUMMARY | 2025-06-02 19:20 | XMS_ITS | Encounter Summary ---
Author Organization [employer] Address 75 [facility] 7t [place] [address] Care Team Providers Care Pharmacy Service Associate Name Role Phone Radha Bravo MD Primary Care Provider [phone] Reason for Visit * Reason Onset Date Comments Med Refill 05/16/2025 Encounter Details Date Type Department Care Team (Late st Contact Info) Description 05/16/2025 Refill [facility]INE 230 [place], [place] [phone] Marcelle Shaw DO 230 [place], [place] [phone] Social History Tobacco Use Types Packs/Day Years [...] documented as of this encounter Care Teams Pharmacy Service Associate Relationship Specialty Start Date End Date Radha Bravo MD [address] [place] [address] PCP - General Family Medicine 03/08/21 documented as of this encounter
--- OUTSIDE RECORDS SUMMARY | 2025-06-02 19:20 | XMS_ITS | Encounter Summary ---
Author Organization [employer] Address 75 [facility] 7t [place] [address] Care Team Providers Care Generation Technologist Name Role Phone Radha Bravo MD Primary Care Provider [phone] Reason for Visit * Reason Onset Date Comments PA for CGM sensors 05/28/2025 Encounter Details Date Type Department Care Team ([facility] st Contact Info) Description 05/28/2025 Telephone [facility] MEDICINE 230 [place] [address] Radha Bravo MD 230 [place], [place] [phone] PA for CGM sensors Social History Tobacco [...] Prior Authorization Documentation: CGM PA initiated for: [employer] Veronica 2 sensors Insurance: [employer] PA form completed and faxed to [phone]. Patient's preferred pharmacy: [facility] - [address] [phone] CGM PA should be approved by: 06/04/2025 [...] documented as of this encounter Care Teams Generation Technologist Relationship Specialty Start Date End Date Radha Bravo MD [address] [place] [address] PCP - General Family Medicine 03/08/21 documented as of this encounter
== END 2025-06-02 15:39 | disposition home or self-care (01) ==
LOC: HO.HOS 14:25
DX: M20.012 Mallet finger of left finger(s) (principal); S62.627A Displaced fracture of middle phalanx of left little finger, initial encounter for closed fracture
CPT/HCPCS: 99203

== ENCOUNTER 2025-06-02 14:25 | Outpatient (REF) | payer MEDICAID, SELFPAY ==
--- NOTE | ~2025-06-02 | XR_ITS ---
EXAMINATION: XR HAND 3 OR MORE VIEWS LEFT HISTORY: M79.642 - Pain in left hand COMPARISON: Comparison is made with the prior examination dated 05/28/2025. FINDINGS: Three views of the left hand are submitted. Osseous mineralization is normal. There is no fracture or dislocation. The joint spaces are preserved. Again seen is flexion of the 5th DIP joint. The soft tissues are unremarkable. XR/XR hand LT min 3V IMPRESSION: Flexion of the 5th DIP joint. Otherwise unremarkable examination of the left hand. Electronically signed by: Syed Madrigal MD 06/02/2025 03:52 PM EST
== END 2025-06-02 14:26 | disposition home or self-care (01) ==
LOC: HO.HOSX 14:25
DX: S62.627A Displaced fracture of middle phalanx of left little finger, initial encounter for closed fracture (principal); M20.012 Mallet finger of left finger(s); W21.05XA Struck by basketball, initial encounter
CPT/HCPCS: 73130; 99212

== ENCOUNTER → 2025-06-02 14:54 | Outpatient (BNV) | payer MEDICAID, SELFPAY | PROVIDERS: Visit Provider Radiology Diagnostic Radiology | DX: M79.642 Pain in left hand (principal) | CPT/HCPCS: 73130 ==

== ENCOUNTER 2025-06-25 10:46 | Outpatient (REF) | payer MEDICAID, SELFPAY ==
--- NOTE | ~2025-06-25 | XR_ITS ---
EXAMINATION: XR HAND, LEFT CLINICAL INFORMATION: M79.642 - Pain in left hand COMPARISON: June 02, 2025 TECHNIQUE: PA, lateral, and oblique views of the left hand. FINDINGS: No acute cortical disruption or malalignment. No lytic or blastic lesions. Probable 4 mm bony island, scaphoid bone. No bony erosions. No soft tissue calcifications. No metallic or radiopaque foreign body. No subcutaneous emphysema. XR/XR hand LT min 3V IMPRESSION: Normal x-ray, left hand. Electronically signed by: Landon Cai MD 06/25/2025 11:12 AM PAGE
== END 2025-06-25 10:47 | disposition home or self-care (01) ==
LOC: HO.HOSX 10:46
DX: S62.627D Displaced fracture of middle phalanx of left little finger, subsequent encounter for fracture with routine healing (principal); M20.012 Mallet finger of left finger(s); X58.XXXD Exposure to other specified factors, subsequent encounter
CPT/HCPCS: 73130

== ENCOUNTER 2025-06-25 10:46 | Outpatient (AMB) | payer MEDICAID, SELFPAY ==
--- OUTSIDE RECORDS SUMMARY | 2025-05-27 09:00 | XMS_ITS ---
Author Organization [facility] Address [address] [place] [address] Care Team Providers Care Manager Operating Name Role Phone Lawrence Raymond, Radha Primary Care Provider Syed Chan [phone] REASON FOR VISIT Patient presents today for abdominal pain Encounters Encounter Location Date Provider Diagnosis [facility] [address] [place] [address] 05/27/2025 Syed Eisenberg Plan Of Treatment Next Appt Details Provider Name:Syed Luz El[place] , 07/08/2025 03:00:00 PM, [address], [address], [place], [address], Progress Notes * ALL BRYSONOB:10/1994 (30 yo M)Acc No.[id number]:05/27/2025 Progress Notes Patient: QAMAR PAYTON Provider: Maxime Eisenberg MD :1995 A ge:29 Y S ex:Male Date:05/27/2025 Address:[address] [place] [address] [address] Pcp:Radha Bravo M.D. Subjective: * Chief Complaints: * P atient presents today for abdominal pain * The named appointment provid er may or may not be the originator of this progress note, and it is not deemed complete until electronically signed by the appointment provider. Sign off status: Pending * Provider: Maxime Eisenberg MD Date: 07/27/2024 Generated for Ahmet mcneal/Silvestre/eTransmitting on: 08/26/2024 01:56 PM EST
--- NOTE | 2025-06-25 10:49 | A.OFFVIS_ITS ---
Intake Visit Reasons: OV- LT 5th mallet finger s/p sport injury w xray Intake Note: Chato is a 30 year old right hand dominant Israeli speaking male who presents today for Follow Up status post Left Small Middle Phalanx Fracture, DOI: 05/28/25. At his last visit he was advised to begin splinting his DIP joint for 24 hours a day, 7 days a week, for 6 weeks. Patient was also advised to anat tape his ring and small fingers together to act as a moving splint. A 2 lb weight limit was reinforced. Release to return to work with these restrictions. At today's visit he reports that he has not returned to work due to the restrictions but he would like to discuss his options. Patient reports that he has not kept his finger splinted since yesterday due to loosing both finger splints. Allergies shellfish derived (SHELLFISH DERIVED) Allergy (Intermediate, Verified 06/02/25 14:44) RASH HPI HPI OV- LT 5th mallet finger s/p sport injury w xray: Details: Chato is a 30 year old right hand dominant Israeli speaking male who presents today for Follow Up status post Left Small Middle Phalanx Fracture, DOI: 05/28/25. At his last visit he was advised to begin splinting his DIP joint for 24 hours a day, 7 days a week, for 6 weeks. Patient was also advised to anat tape his ring and small fingers together to act as a moving splint. A 2 lb weight limit was reinforced. Release to return to work with these restrictions. At today's visit he reports that he has not returned to work due to the restrictions but he would like to discuss his options. Patient reports that he has not kept his finger splinted since yesterday due to loosing both finger splints. The patient states that he can not be held out of work any longer, is not eligible for any further FMLA has he has used all of his for this year, and must return to work. [facility] Medical History Skull lesion Hypertriglyceridemia Acute pancreatitis Diabetes mellitus Asthma No known health problems Family History Maternal Grandmother Diabetes Social History (Updated 06/02/25 @ 14:43 by KATE Amaral) Household Members: Spouse Housing: Apartment Do you presently have visiting nurse or other home services: No Alcohol intake: never Comment: Spouse at bedside Patient Tobacco Use Status: Never used Tobacco service: No Current occupational status: employed Current occupation: rt handed, [employer] Review of Systems Const All systems reviewed & are unremarkable except as noted in HPI and below Physical Exam Extrem Other: Patient is alert, oriented, and in no acute distress. Neuro: Normal sensation of the tips of all digits of the left hand at this time Vascular: Cap refill brisk Pain: No further tenderness to palpation of the distal aspect, D IP, and PIP joints of the left small finger Very minimal Pain with range of motion attempts of the left small finger ROM: Patient is able to actively flex the D IP joint of the left small finger Not able to actively extend fully at the D IP Patient is able to flex and extend all other digits and joints of the left hand fully and without difficulty Skin: No lacerations or abrasions. General: No ecchymosis, erythema, or evidence of infection. Psych: Appears grossly normal Affect normal Attitude cooperative Results Reviewed Results Reviewed: X-rays obtained in the office today and independently reviewed by me, Aman Sharp PA-C, demonstrate mallet deformity of left small finger similar alignment to previous x-rays. Assessment & Plan Assessment & Plan (1) Mallet deformity of left little finger: Code(s): M20.012 - Mallet finger of left finger(s) Category: Medical (2) Fracture of middle phalanx of left little finger: Code(s): S62.627A - Displaced fracture of middle phalanx of left little finger, initial encounter for closed fracture Category: Medical Plan 1. Left small finger mallet finger 2. Left small finger middle phalanx base fracture, avulsion, nondisplaced Date of injury 05/28/2025 Patient is educated about these injuries Patient is educated about the typical recovery course At this time, patient is advised on 24 hour day 7 day a week splinting of the D IP joint of the left small finger This should last for 6 weeks, and the clock as needed to restart on this due to not being splinted for a day No further anat taping needed Patient is advised that I do not necessarily feel it is the most advisable thing for him to return to work, as the splint will likely get wet, however as the patient must return to work, I have given him a note stating that he can Patient should change out or wrapping on splint every time it gets wet at work if this does happen Patient understands this and is amenable to this plan Follow-up in 6 weeks for reassessment, sooner with any acute concerns Orders: Orders XR hand LT min 3V Today M79.642 - Pain in left hand Coding Level of Care Code Est Pt Level 3 (26386) Diagnoses Mallet deformity of left little finger M20.012 Fracture of middle phalanx of left little finger S62.627A
--- OUTSIDE RECORDS SUMMARY | 2025-06-25 13:56 | XMS_ITS | Encounter Summary ---
Author Organization [email or web address] Address 75 [facility] 7t [place] [address] Care Team Providers Care Cut In Station Operator Name Role Phone Radha Bravo MD Primary Care Provider [phone] Reason for Visit * Reason Onset Date Comments Med Refill 05/16/2025 Encounter Details Date Type Department Care Team (Late st Contact Info) Description 05/16/2025 Refill [facility] MEDICINE 230 [place], [place] [phone] Marcelle Shaw DO 230 [place], [place] [phone] Social History Tobacco Use Types Packs/Day Years [...] documented as of this encounter Care Teams Cut In Station Operator Relationship Specialty Start Date End Date Radha Bravo MD [address] [place] [address] PCP - General Family Medicine 03/08/21 documented as of this encounter
--- OUTSIDE RECORDS SUMMARY | 2025-06-25 13:56 | XMS_ITS | Data Portability ---
Author Organization [place] - [facility], Allergy Address [address] [address] Care Team Providers Care Supervisor Paper Products Name Role Phone MICHELA SULLIVAN Primary Care [...] a tumor is associated with severe morbidity. [email or web address] Not available 05/14/2024 12:52:42 Plan of Treatment Reminders Order Date Submit Date Provider Last Modified By Organization Details Last Modified Time Details Appointments None recorded. Lab None recorded. Referral None recorded. Procedures None recorded. Surgeries None recorded. Imaging MRI, brain + internal auditory canal, w/wo contrast - MRI, BRAIN + INTERNAL AUDITORY CANAL, W/WO CONTRAST 2023 024 [facility] ([facility]), [address] [place], [address], 14:06:23 Medication Orders None recorded. Patient TargetsNo [...] stem, w/wo contr ast [facility] Access ion Number : [id number] [address] t Name: Chato Sinha Record Number : [id number] Date of : 1994 Date of Exam: 2023 Referr ing Physic darlene: Mynor Perera re Ear Nose [address] [place] [address] Exam: MR Brain (C-/C+ ) CPT 12128 Room Descri ption: [place] Siem Espr 1.5 HISTOR Y: Erosiv e [...] onical ly Signed By: Brent Arteaga MD [email or web address] [facility] ([facility]) 80 [facility] [place], [address], 05/21/2024 12:56:02 Result Notes Documentation Provider Name and Address Organization Details Recorded Time Mri, Brain + Brain Stem, W/wo Contrast : [facility] Accession Number: [id number] Patient Name: Chato Kaur Date of : 1995 Date of Exam: 05-16-2024 Referring Physician: Darshan Perera Ear N[facility] [address] [place] [address] Exam: MR Brain (C-/C+) CPT 71524 Room Description: [facility] 1.5 HISTORY: Erosive tumor on CT. 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 DARSHAN PERERA MD 100 [facility],[place] [address], [place], [address], [facility] - [facility] 20:50:59 Conductive hearing loss of left ear 8272812878 Active 2023 SHANKAR PETERSON [address],[place] [address], [place], [address], [facility] 11:29:58 Left conductive hearing loss 0399132963039 Active 2023 SHANKAR PETERSON [address],[place] [address], [place], [address], [facility] 11:30:59 Subjective pulsatile tinnitus of left ear 5552789817325 103 Active 2023 DARSHAN PERERA MD 100 [facility],[place] [address], [place], [address], [facility] 12:51:33 Problem Notes None recorded. Procedures Surgical History Date Name Laterality Status Provider Name and Address Organization Details Recorded Time Comp Audio with Tymps & Reflexes - 19095 & 72704 completed ERASMO SR 100 [facility],[place] [address], [place], [address], [facility] 05/14/2024 11:29:29 Imaging Results None recorded. Procedure Notes None recorded. Medical Equipment None Reported. Allergies Allergen ID Allergen Name Allergen Category Reaction Reaction Severity Criticality Documentation Date Start Date Code Code System Note Provider Name and Address Organization Details Recorded Time 801280 metformin medicatio n Not available Not available Not available 05/14/2024 6809 RxNorm Nini amin [facility] 11:07:04 Medications Name Sig Start Date Stop [...] Available Not Available FreeStyle Lite Meter kit [place] CHECK BLOOD SUGAR THREE TIMES A DAY [...] Available No t Available FreeStyle Veronica 3 [place] USE DIRECTED TO TEST BLOOD SUGAR EVERY DAY active Not Available Not Available No t Available FreeStyle Veronica 3 Plus Sensor device APPLY 1 SENSOR TOPICALLY EVERY 15 DAYS. USE DIRECTED TO TEST BLOOD SUGAR active Not Available Not Available No t Available Vitals Date Recorded Body height Body weight Provider Name and Address Organization Details Last Updated DateTime 05/14/2024 190.5 cm 634425.56 g Nini Dan [place] - [facility] 05/14/2024 11:09:49 Social History None recorded. Functional Status None recorded. Mental Status None recorded. Family History Nothing Reported. Medical History Condition Response Diabetes Y Hypertension Y Asthma Y High Cholesterol Y Past Encounters Encounter ID Performer Location Encounter Start Date Encounter Closed Date Diagnosis/Indication Diagnosis SNOMED-CT Code Diagnosis ICD10 Code Diagnosis IMO Codes Diagnosis Note [id number] DARSHAN PERERA MD [facility] of [address] [address] 05/14/2024 10:59:34 05/14/2024 12:11:43 Neoplasm of glomus jugulare 616294929 D49.7 Left condu ctive hearing loss 3964147875 107 H90.12 Audiologic al evaluation results: 05/14/2024 [...] tinnitus. Subjective pulsatile tinnitus of left ear 2833782091 213698 H93.A2 Health Concerns Section Related Observation LastModified by Organization Detai ls LastModified Time None Recorded Concern Status LastModified by Organization Details LastModified Time None Recorded Advance Directives Directive None Recorded Payers Insurance Date Sequence Insurance Name Policy Number Policy Suarez Covered Member ID Suarez Member ID Guarantor Name 02/27/2025 1 [facility] NET PLAN (MEDICAID HMO) [id number] Chato Woodard [id number] Chato Kaur Notes Date Note Type [...] a glomus jugulare tumor. Patient referred to [facility] neurosurgery who redirected the consult to me. Patient notes occasional pulsatile tinnitus in the left ear for the past few months. He gets chronic daily headaches primarily centered around the right occiput.. He has noticed no changes in vocal quality or strength. No troubles with swallowing. Patient comes in today accompanied by his girlfriend who is helping with Ivorian translation. She would like to be the linesperson for future scheduling, and he is in agreement with this. DARSHAN PERERA MD [address] [place] [address], [place], [address], [place] - [facility] 05/14/2024 12:53:19
--- OUTSIDE RECORDS SUMMARY | 2025-06-25 13:57 | XMS_ITS | Clinical Summary ---
Author Organization [facility] Address [address] [place] [phone] Phone Care Team Providers Care [employer] Name Role Phone Cinthya Briones MD Primary Care Provider [phone] Social History Tobacco Use Types Packs/Day Years [...] patient's age to complete this topic Insurance [facility] Care Teams [employer] Teacher Relationship Specialty Start Date End Date Cinthya Briones MD [address] [place] [address] Dr Ayala [place] [phone] PCP - General Internal Medicine 05/22/24
--- OUTSIDE RECORDS SUMMARY | 2025-06-25 13:57 | XMS_ITS | Encounter Summary ---
Author Organization [employer] Address [address] [facility] 7t [place] [address] Care Team Providers Care Blower Feeder Dyed Raw Stock Name Role Phone Radha Bravo MD Primary Care Provider [phone] Encounter Details Date Type Department Care Team ([facility] st Contact Info) Description 04/23/2025 Orders Only [facility] [address] [place], [place] [phone] ProviderInes MD Social History Tobacco Use Types [...] documented as of this encounter Care Teams Blower Feeder Dyed Raw Stock Relationship Specialty Start Date End Date Radha Bravo MD [address] [place] [phone] PCP - General Family Medicine 03/08/21 documented as of this encounter
--- OUTSIDE RECORDS SUMMARY | 2025-06-25 13:57 | XMS_ITS | Clinical Summary ---
Author Organization [employer] Address [address] [facility] 7t [place] [address] Care Team Providers Care Window Installer Name Role Phone Radha Bravo MD Primary Care Provider [phone] Allergies Active Allergy Reactions Criticality Noted Date Comments Metformin Unknown 05/09/2025 Medications atorvastatin (Lipitor) 80 MG tablet Take 1 tablet (80 mg) by mouth Once per day. 90 tablet 1 06/11/2025 4:04 PM EST 5 Active gemfibrozil (Lopid) 600 MG tablet Take 1 tablet (600 mg) by mouth 2 times daily. 180 tablet 1 06/11/2025 4:04 PM EST 5 026 Active omeprazole (PriLOSEC) [address] capsule Take 1 capsule (20 mg) by mouth before breakfast. 90 capsule 1 5 Active FREESTYLE LITE test strip Use to test blood sugar 3 times daily 100 each 11 5 026 Active Lancets misc Use to test blood sugar 3 times daily 100 each 11 06/11/2025 4:04 PM EST 5 Active Alcohol Swabs 70 % pads Use to test blood sugar 3 times daily 100 each 11 06/11/2025 4:04 PM EST 5 Active Blood Glucose Monitoring Suppl (FreeStyle [place] Lite) w/Device kit Use to test blood sugar 3 times daily 1 kit 5 Active Continuous Glucose Cardiology Clinical Consultant (FreeStyle Veronica 3 Stanton) device 1 each Once per day. Use as directed for CGM 1 each Active Continuous Glucose Sensor (FreeStyle Veronica 3 Plus Sensor) misc 1 each every 15 days. Apply 1 every 15 days as directed for CGM 2 each 06/11/2025 4:04 PM EST Active glucose blood (FreeStyle Precision Henry Test) test strip Use to test blood sugar 3 times daily in case of CGM failure or extremes of BG 100 each 11 06/11/2025 4:04 PM EST 5 Active gabapentin (Neurontin) 300 MG capsule Take 1 capsule (300 mg) by mouth 3 times daily. 90 capsule 3 06/11/2025 4:04 PM EST 5 Active acetaminophen (Tylenol) 325 MG tablet Take 3 tablets by mouth every 6 (six) hours if needed for mild pain. Active docusate sodium (Colace) 100 MG capsule Take 1 capsule by mouth 2 times daily. Active pen needle 32G x 4 mm misc USE DIRECTED WITH INSULIN 100 each 3 05/26/2025 12:23 PM EST 5 Active insulin glargine (Lantus SoloStar) 100 UNIT/ML pen INJECT 10 UNITS SUBCUTANEOUSLY EVERY MORNING 15 mL 3 06/20/2025 3:21 PM EST 5 Active Active Problems Problem Noted Date Diagnosed [...] Resolved Date History of COVID-19 02/17/2025 03/08/20 Encounters Date Type Department Care Team Description 05/28/[address] [address] Radha Bravo MD PA for CGM sensors 05/18/2025 Refill [facility] [address] [place] [phone] Marcelle Shaw, 05/16/[address] [address] Marcelle Shaw, 05/12/2025 2:45 PM EST Office Visit [address] [address] Radha Bravo MD Obesity, Class III, BMI 40-49.9 (morbid obesity) (HCC) (Primary Dx); Type 2 diabetes mellitus without complication, without long-term current use of insulin (HCC); Encounter for vaccination; Encounter for immunization; Glomus jugulare tumor (CMS/HCC) (HCC); History of pancreatitis; Hypertriglyceridemia 05/12/2025 Travel 05/08/[address] [address] Radha Bravo MD chart prep 05/05/2025 Patient Outreach [address] [address] Radha Bravo MD Pre-visit Planning (SDOH screening completed on 02/18/25 ) 04/30/2025 Telephone [facility] [address] [place] [address] Radha Bravo MD [facility] (I called the patient, regarding a PE Form, from [facility]. I reached a voicemail, and left a message informing him that he needs to have [facility], before the form is completed. He may come to the [facility] lab at his convenience. He is scheduled for a PE on 05/12/25 at 2:45.) 04/29/2025 Telephone [facility] [address] [place] [address] Radha Bravo MD 04/25/2025 Refill [facility] [address] [place] [address] Radha Bravo MD Encounter for screening for respiratory tuberculosis 04/23/2025 Orders Only [facility] [address] [place] [address] ProviderInes MD 04/18/2025 Telephone [facility] [address] [place] [address] Hailey Buenrostro OD 04/14/2025 Telephone [facility] [address] [place] [address] Marcelle Shaw DO Med Refill 03/28/2025 Orders Only GENERIC EXTERNAL DATA DEPARTMENT Provider, Generic External Data from Last 3 Months Immunizations Immunization Administration [...] Plan Patient has chronic kidney disease Dianna Garenr Patient has chronic kidney disease Care Plan Patient has chronic kidney disease No Ghazala Perez, RN Patient has chronic kidney disease Care Plan Patient has chronic kidney disease No Ghazala Perez, rotary drier operator Procedure Name Priority Date/Time Associated Diagnosis Comments POCT GLUCOSE Routine 05/12/2025 3:07 PM EST Type 2 diabetes mellitus without complication, without long-term current use of insulin ([facility]) T-SPOT(R).TB Routine 04/25/2025 11:59 AM EDT Encounter [...] AUTO DIFFERENTIAL Routine 03/28/2025 12:16 PM EDT ALBUMIN, RANDOM URINE W/CREATININE Routine 03/07/2025 2:26 PM EDT Other acute pancreatitis, unspecified complication status Pancreatic pseudocyst Hypertriglyceridemi a Type 2 diabetes mellitus without complication, without long-term current use of insulin ([facility]/HCC) LIPID PANEL, STANDARD Routine 03/07/2025 2:26 PM EDT POCT GLYCATED HEMOGLOBIN, TOTAL Routine 03/07/2025 1:49 [...] (ABNORMAL) POCT Glucose (05/12/2025 3:07 PM EST) Pathologist [facility] Glucose Blood, POC 229(A) 60 - 200 mg/dL QC Media Lot # [id number] Lot# Expiration Date Blood Capillary blood specimen / Unknown 05/12/2025 3:07 PM EST Radha Bravo MD POINT OF CARE TEST ENTER/EDIT ORDERABLES Final Result * T-SPOT??.TB (04/25/2025 11:59 AM EDT) Pathologist [facility] T Spot TB Negative Negative [facility] Comment:A negative test resu lt [...] as aquantitative test. TS PANEL A 0 [facility] TS PANEL B 0 [facility] Negative Control Passed [facility] Positive Control Passed [facility] Comment:For additional infor matlora, please refer tohttp://education.Typekit/faq/DZF392(This link is being provided for informational/educational purposes only.)THIS TEST WAS PERFORMED AT:[email or web address] [id number] [place] [id number] W. MASON,MD,PHD 04/25/2025 11:5 9 AM EDT 04/25/2025 1:04 PM EDT us Radha Bravo MD LAB BLOOD ORDERABLES Final Res ult Performing Organization Address City/State/[facility] Co de Phone Number [facility] [address] [place] [phone] * CT Abdomen Pelvis w/ Contrast (04/22/2025 3:03 PM EDT) Only the most recent of2 resultswithin the time period is included. Anatomical Region Laterality Modality Body, Pelvis, Abdomen Computed T omography 04/22/2025 3:03 PM EDT Narrative 04/22/2025 3:57 PM EDT [address] [address] [address] Scan Report Signed Patient: Chato Dickinson MR#: [id number] : 1995 Acct:[id number] Age/Sex: 29 / M ADM Date: 04/22/25 Loc: HO.CT Attending Dr: Syed Eisenberg MD Ordering Physician: Syed Eisenberg MD Date of Service: 04/22/25 Procedure(s): CT abdomen pelvis w IV con Accession Number(s): [id number] cc: Radha Bravo; Syed Eisenberg MD Report Number: [id number]: Total DLP = 908.00 mGy-cm Reason for [...] 04/22/25 1554 DD/ 1503 TD/TT: 04/22/25 1535 Drying Room Operator: Procedure Note Donotginainterpreter, Image - 04/22/[address] [address] [address] Scan Report Signed Patient: Chato Dickinson AMR#: [id number] : 1995Acct:[id number] Age/Sex: 29 / MADM Date: 04/22/25 Loc: HO.CT Attending Dr: Syed Eisenberg MD Ordering Physician: Syed Eisenberg MD Date of Service: 04/22/25 Procedure(s): CT abdomen pelvis w IV con Accession Number(s): [id number] cc: Radha Bravo; Syed Eisenberg MD Report Number: [id number]: Total DLP = 908.00 mGy-cm Reason for [...] 04/22/25 1554 DD/ 1503 TD/TT: 04/22/25 1535 Drying Room Operator: [facility] External Provider IMG CT PROCEDURES Final Result * Referral to Gastroenterology (04/22/2025) Radha Bravo MD OUTPATIENT REFERRAL ORDERABLES Final Result * (ABNORMAL) CBC auto differential (03/28/2025 12:16 PM EDT) White Blood Count 3.8(L) 4.8 - 10.8 X10*3/uL [facility] Red Blood Count 5.37 4.60 - 5.80 X10*6/uL [facility] Hemoglobin 13.6(L) 14.0 - 18.0 g/dl [facility] Hematocrit 40.3(L) 42.0 - 52.0 % [facility] Mean Corpuscular Volume 75.0(L) 80.0 - 98.0 fL [facility] Mean Corpuscular Hemoglobin 25.3(L) 27.0 - 33.0 pg [facility] Mean Corpuscular HGB Conc 33.7 31.0 - 36.0 g/dl [facility] Red Cell Distribution Width 15.4 11.0 - 16.0 % [facility] Platelet Count 265 160 - 400 X10*3/uL [facility] Mean Platelet Volume 9.4 9.4 - 12.4 fL [facility] Neutrophils Percent Auto 38.9(L) 45 - 73 % [facility] Imm Gran Pct Auto 0.3 0.0 - 0.4 % [facility] Lymphocytes Percent Auto 45.6(H) 20 - 40 % [facility] Monocytes Percent Auto 11.5(H) 2 - 11 % [facility] Eosinophils Percent Auto 2.4 0 - 4 % [facility] Basophils Percent Auto 1.3 0 - 2 % [facility] NRBC Pct Auto 0.0 0.0 - 0.2 /100WBC [facility] Neutrophils Absolute Auto 1.5(L) 2.0 - 8.3 x10*3/uL [facility] Imm Gran Abs Auto 0.01 0.00 - 0.03 X10*3/uL [facility] Lymphocytes Absolute Auto 1.7 1.2 - 4.9 X10*3/uL [facility] Monocytes Absolute Auto 0.4 0.1 - 1.2 X10*3/uL [facility] Eosinophils Absolute Auto 0.1 0.0 - 0.4 X10*3/uL [facility] Basophils Absolute Auto 0.1 0.0 - 0.2 X10*3/uL [facility] NRBC Abs Auto 0.000 0.0 - 0.012 X10*3/uL [facility] 03/28/2025 12:1 6 PM EDT 03/28/2025 12:16 PM EDT us Generic External Data Provider LAB BLOOD ORDERAB LES Final Result [facility] [address] [place] [phone] * Triglycerides (03/28/2025 12:16 PM EDT) Triglycerides 138 <150 mg/dL [facility] Comment:Desirable Triglyceri de: less than 150 mg/dLBorderline High Triglyceride 150-199 mg/dLHigh Triglyceride: 200-499 mg/dLVery High Triglyceride: greater than or equal to 5OO mg/dL 03/28/2025 12:1 6 PM EDT 03/28/2025 12:16 PM EDT Generic External Data Provider LAB BLOOD ORDERAB LES Final Result Performing Organization Address [facility] de Phone Number [facility] [address] [place] [phone] * Lipase (03/28/2025 12:16 PM EDT) Lipase 35 8 - 78 U/L [facility] 03/28/2025 12:1 6 PM EDT 03/28/2025 12:16 PM EDT Generic External Data Provider LAB BLOOD ORDERAB LES Final Result Performing Organization Address [facility] de Phone Number [facility] [address] [place] [phone] * Amylase (03/28/2025 12:16 PM EDT) Amylase 86 28 - 100 U/L [facility] 03/28/2025 12:1 6 PM EDT 03/28/2025 12:16 PM EDT Generic External Data Provider LAB BLOOD ORDERAB LES Final Result Performing Organization Address [facility] de Phone Number [facility] [address] [place] [phone] * Hepatic Function Panel (03/28/2025 12:16 PM EDT) Bilirubin, Total 0.7 0.0 - 1.0 mg/dL [facility] Bilirubin, Direct 0.2 0.0 - 0.5 mg/dL [facility] Aspartate Amino Transferase 22 5 - 37 U/L [facility] Alanine Aminotransferase 24 0 - 40 U/L [facility] Total Protein 7.3 6.5 - 8.0 g/dL [facility] Albumin Level 4.3 3.5 - 5.0 g/dL [facility] Alkaline Phosphatase 88 39 - 117 U/L [facility] 03/28/2025 12:1 6 PM EDT 03/28/2025 12:16 PM EDT us Generic External Data Provider LAB BLOOD ORDERAB LES Final Result Performing Organization Address [facility]/ZIP Co de Phone Number [facility] [address] [place] [phone] * (ABNORMAL) Basic Metabolic Panel (03/28/2025 12:16 PM EDT) Sodium 139 135 - 145 mmol/L [facility] Potassium 4.1 3.3 - 5.1 mmol/L [facility] Chloride 108 96 - 108 mmol/L [facility] Carbon Dioxide 28 22 - 29 mmol/L [facility] Anion Gap 7(L) 12 - 20 [facility] Urea Nitrogen (BUN) 13 9 - 16 mg/dL [facility] Creatinine, Serum 0.78 0.5 - 1.4 mg/dL [facility] Estimated Glomerular Filt Rate >60 [facility] Comment:Chronic Kidney Disea se: Estimated GFR < 60 mL/min/[id number] Kidney Disease: Estimated GFR < 15 mL/min/1.73m2 Glucose 125(H) 60 - 115 mg/dL [facility] Calcium 9.2 8.4 - 10.2 mg/dL [facility] 03/28/2025 12:1 6 PM EDT 03/28/2025 12:16 PM EDT us Generic External Data Provider LAB BLOOD ORDERAB LES Final Result Performing Organization Address City/[facility]/ZIP Co de Phone Number [facility] [address] [place] [phone] * Albumin, Random Urine W/Creatinine (03/07/2025 2:26 PM EDT) Creatinine, Urine 178.97 mg/dL [facility] Microalbumin Urine 9.0 mg/L [facility] Microalbum Creatinine Ratio Ur 5.0 <30 ug/mg cr [facility] Comment:Albumin/Creatinine R atio Reference Ranges: Normal: < 30 ug/mg creatinine Microalbuminuria: 30 - 300 ug/mg creatinineClinical Albuminuria: > 300 ug/mg creatinine Urine (Urine, Random) 03/07/2025 2:26 PM EDT 03/07/2025 4:10 PM EDT us Marcelle Shaw DO LAB URINE ORDERABLES Final R esult [facility] [address] [place] [phone] * (ABNORMAL) Lipid Panel, Standard (03/07/2025 2:26 PM EDT) Triglycerides 215(H) <150 mg/dL [facility] Comment:Desirable Triglyceri de: less than 150 mg/dLBorderline High Triglyceride 150-199 mg/dLHigh Triglyceride: 200-499 mg/dLVery High Triglyceride: greater than or equal to 5OO mg/dL Cholesterol 122 <200 mg/dL [facility] Comment:Desirable Cholestero l: less than 200 mg/dLBorderline High Cholesterol: 200-239 mg/dLHigh Cholesterol: greater than 239 mg/dL LDL Cholesterol Calculated 56 <100 mg/dL [facility] Comment:Desirable LDL: less than 100 mg/dLNear Optimal/Above Optimal LDL: 110- 129 mg/dLBorderline High LDL: 130-159 mg/dLHigh LDL: 160-189 mg/dLVery High LDL: greater than or equal to 190 mg/dL HDL Cholesterol 23(L) >40 mg/dL [facility] Comment:Desirable HDL: great er than 40 mg/dL Note: This HDL assay may give artificially low results in patients with liver disease. 03/07/2025 2:26 PM EDT 03/07/2025 5:25 PM EDT Generic External Data Provider LAB BLOOD ORDERAB LES Final Result Performing Organization Address [facility]/ZIP Co de Phone Number [facility] [address] [place] [phone] * (ABNORMAL) POCT HGB A1C (03/07/2025 1:49 PM EDT) Hemoglobin A1C 6.2(A) 4.0 - 5.7 % QC Media Lot # [id number] Lot# Expiration Date Blood 03/07/2025 1:49 PM EDT Result [facility] Radha Bravo MD POINT OF CARE TEST ENTER/EDIT ORDERABLES Final Result * HEPATITIS C AB W/REFL TO HCV RNA, QN, PCR (01/14/2021 3:46 PM EDT) HEPATITIS C ANTIBODY NON-REACT CORY NON-REACT [facility] INDEX 0.01 <1.00 [facility] Comment: HCV antibody was non-reactive. There is no laboratory evidence of HCV infection. In most cases, no further action is required. However, if recent HCV exposure is suspected, a test for HCV RNA (test code 51553) is suggested. For additional information please refer to http://education.Typekit/faq/NHP58z9 (This link is being provided for informational/ educational purposes only.) 01/14/2021 3:46 PM EDT Dianna Pierce MD HISTORICAL/NON ORDERABLE LABS Final Result Performing Organization Address City/[facility]/ZIP Co de Phone Number [facility] [address] * HIV 1/2 ANTIGEN/ANTIBODY,FOURTH GENERATION W/RFL (01/14/2021 3:46 PM EDT) HIV-1/2 ANTIGEN AND ANTIBODIES, 4TH GENERATION W/ REFLEX NON-REACT CORY NON-REACT CORY [facility] Comment: HIV-1 antigen and HIV-1/HIV-2 [...] purpose. For additional information please refer to http://education.Typekit/faq/YBO081 (This link is being provided for informational/ educational purposes only.) The performance of this assay has not been clinically validated in patients less than 2 years old. 01/14/2021 3:46 PM EDT us Dianna Pierce MD LAB BLOOD ORDERABLES Final Re sult [facility] [address] from Last 3 Months or Most Recently Relevant to Health Maintenance Additional Health Concerns Active Problems Noted Date Diagnosed Date Help patients manage their type 2 diabetes 05/21 Patient has chronic kidney disease 05/21/2025 Patient has chronic kidney disease 05/27/2025 Patient has chronic kidney disease 05/28/2025 Insurance HSN [employer]IAL [facility] C3 Care Teams Window Installer Relationship Specialty Start Date End Date Radha Bravo MD [address] [place] [phone] PCP - General Family Medicine 03/08/21
--- OUTSIDE RECORDS SUMMARY | 2025-06-25 13:57 | XMS_ITS | Patient Health Record ---
Author Organization [facility] Address [address] [place] [address] Care Team Providers Care Financial Planner Name Role Phone Radha Bravo M.D. Primary Care Provider Syed Chan [facility] [phone] Results Component Value Reference Range Flag Notes Prothrombin Time INR Reviewed date:12/16/2024 09:37:21 PM Interpretation: Performing Lab:[facility], [address] [place] [phone] Notes/Report: Prothrombin Time 15.7 10.9-12.4 SEC H [...] Panel Reviewed date:12/16/2024 09:37:32 PM Interpretation: Performing Lab:[facility], [address] [place] [phone] Notes/Report: Bilirubin Total 1.2 0.0-1.0 mg/dL H Bilirubin Direct 0.7 0.0-0.5 mg/dL H Aspartate Amino Transferase 44 5-37 U/L H Alanine Aminotransferase 14 0-40 U/L N Total Protein 6.1 6.5-8.0 g/dL L Albumin Level 2.7 3.5-5.0 g/dL L Alkaline Phosphatase 128 39-117 U/L H Basic Metabolic Panel Reviewed date:12/16/2024 09:35:32 PM Interpretation: Performing Lab:[facility], [address] [place] [phone] Notes/Report: Sodium 135 135-145 mmol/L N Potassium [...] Magnesium Reviewed date:12/16/2024 09:37:05 PM Interpretation: Performing Lab:[address] [address] Notes/Report: Magnesium 1.9 1.6-2.6 mg/dL N Lipase Reviewed date:12/16/2024 09:35:17 PM Interpretation: Performing Lab:[address] [address] Notes/Report: Lipase 196 8-78 U/L H US abdomen limited Reviewed date:12/16/2024 09:35:09 PM Interpretation: Performing Lab: Notes/Report: [address] [address] Ultrasound Report Signed Patient: Chato Dickinson MR#: [id number] : 1995 Acct:[id number] Age/Sex: 29 / M ADM Date: 12/08/24 Loc: HO.S3 362-[address]: Ananth Rasmussen MD Ordering Physician: Syed Eisenberg MD Date of Service: 12/14/24 Procedure(s): US abdomen limited Accession Number(s): [id number] cc: Physician,Unknown ; Syed Eisenberg MD EXAMINATION: [...] 12/16/24 0905 DD/ 0756 TD/TT: 12/14/24 0801 Restaurant Delivery Driver: Basic Metabolic Panel Reviewed date:12/26/2024 11:20:53 PM Interpretation: Performing Lab:[facility], [address] [place] [phone] Notes/Report: Sodium 136 135-145 mmol/L N Potassium [...] Phosphorus Reviewed date:12/26/2024 11:20:22 PM Interpretation: Performing Lab:[facility], [address] [place] [phone] Notes/Report: Phosphorus 5.1 2.7-4.5 mg/dL H Magnesium Reviewed date:12/26/2024 11:20:13 PM Interpretation: Performing Lab:[facility], [address] [place] [phone] Notes/Report: Magnesium 1.8 1.6-2.6 mg/dL N Complete Blood Count Auto Di ff Reviewed date:03/30/2025 05:49:44 PM Interpretation: Performing Lab:[facility], [address] [place] [phone] Notes/Report: White Blood Count 3.8 4.8-10.8 X10*3/uL [...] Panel Reviewed date:03/30/2025 05:49:24 PM Interpretation: Performing Lab:[address] [address] Notes/Report: Bilirubin Total 0.7 0.0-1.0 mg/dL N Bilirubin Direct 0.2 0.0-0.5 mg/dL N Aspartate Amino Transferase 22 5-37 U/L N Alanine Aminotransferase 24 0-40 U/L N Total Protein 7.3 6.5-8.0 g/dL N Albumin Level 4.3 3.5-5.0 g/dL N Alkaline Phosphatase 88 39-117 U/L N Basic Metabolic Panel Reviewed date:03/30/2025 05:49:14 PM Interpretation: Performing Lab:[address] [address] Notes/Report: Sodium 139 135-145 mmol/L N Potassium [...] Triglycerides Reviewed date:03/30/2025 05:48:55 PM Interpretation: Performing Lab:[address] [address] Notes/Report: Triglycerides 138 <150 mg/dL Desirable Triglyceride: less than 150 mg/dL Borderline High Triglyceride 150-199 mg/dL High Triglyceride: 200-499 mg/dL Very High Triglyceride: greater than or equal to 5OO mg/dL Amylase Reviewed date:03/30/2025 05:48:26 PM Interpretation: Performing Lab:[facility], [address] [place] [phone] Notes/Report: Amylase 86 28-100 U/L N Lipase Reviewed date:03/30/2025 05:48:19 PM Interpretation: Performing Lab:[facility], [address] [place] [phone] Notes/Report: Lipase 35 8-78 U/L N CT abdomen pelvis w con Reviewed date:12/29/2024 02:36:22 PM Interpretation: Performing Lab: Notes/Report: [address] [address] [address] Scan Report Signed Patient: Chato Dickinson MR#: M [id number] : 1995 Acct:[id number] Age/Sex: 29 / M ADM Date: 12/08/24 Loc: HO.S3 362-[address]: Perla Childs NP Ordering Physician: Syed Eisenberg MD Date of Service: 12/28/24 Procedure(s): CT abdomen pelvis w IV con Accession Number(s): [id number] cc: Physician,Unknown ; Syed Eisenberg MD Report Number: [id number]: Total DLP = 1283.00 mGy-cm CLINICAL HISTORY: [...] 12/29/24 1017 DD/ 1016 TD/TT: 12/29/24 1016 Restaurant Delivery Driver: Liver Panel Reviewed date:12/26/2024 01:37:31 PM Interpretation: Performing Lab:[address] [address] Notes/Report: Bilirubin Total 0.7 0.0-1.0 mg/dL N Bilirubin Direct 0.4 0.0-0.5 mg/dL N Aspartate Amino Transferase 107 5-37 U/L H Alanine Aminotransferase 55 0-40 U/L H Total Protein 8.0 6.5-8.0 g/dL N Albumin Level 3.1 3.5-5.0 g/dL L Alkaline Phosphatase 146 39-117 U/L H Prothrombin Time INR Reviewed date:12/26/2024 01:36:40 PM Interpretation: Performing Lab:[address] [address] Notes/Report: Prothrombin Time 17.2 10.9-12.4 SEC H [...] mechanical prosthetic heart valves: 2.5 - 3.5 Hold Lav - Possible Hematolo gy Reviewed date:12/26/2024 11:21:10 PM Interpretation: Performing Lab:[address] [address] Notes/Report: Hold Lav - Possible Hematology SEE NOTE Specimen will be held untested for 8 hours. Call Hematology if testing is desired. CT abdomen pelvis w con Reviewed date:12/26/2024 12:57:44 AM Interpretation: Performing Lab: Notes/Report: [address] [address] [address] Scan Report Signed Patient: Chato Dickinson MR#: M [id number] : 1995 Acct:[id number] Age/Sex: 29 / M ADM Date: 12/08/24 Loc: .S3 362-[address]: Perla Childs MANAGER PROGRAM Ordering Physician: Syed Eisenberg MD Date of Service: 12/23/24 Procedure(s): CT abdomen pelvis w IV con Accession Number(s): [id number] cc: Physician,Unknown ; Syed Eisenberg MD Report Number: [id number]: Total DLP = 1706.00 mGy-cm CLINICAL HISTORY: [...] MD in OV> 12/24/2413 DD/ TD/TT: 12/24/2412 Restaurant Delivery Driver: CDiff Gene PCR Reviewed date:12/24/2024 06:33:34 PM Interpretation: Performing Lab:[address] [address] Notes/Report: CDiff Gene PCR NEGATIVE Negative If C. difficile strongly suspected despite one negative test, a second test may be sent vs. empiric treatment for C. difficile infection. Lipase Reviewed date:12/24/2024 09:34:54 AM Interpretation: Performing Lab:[facility], [address] [place] [phone] Notes/Report: Lipase 237 8-78 U/L H Magnesium Reviewed date:12/24/2024 09:35:02 AM Interpretation: Performing Lab:[address] [address] Notes/Report: Magnesium 1.7 1.6-2.6 mg/dL N Phosphorus Reviewed date:12/24/2024 09:35:26 AM Interpretation: Performing Lab:[facility], [address] [place] [phone] Notes/Report: Phosphorus 5.4 2.7-4.5 mg/dL H Basic Metabolic Panel Reviewed date:12/24/2024 09:35:49 AM Interpretation: Performing Lab:[address] [address] Notes/Report: Sodium 136 135-145 mmol/L N Potassium [...] 60-115 mg/dL N Calcium 8.9 8.4-10.2 mg/dL Liver Panel Reviewed date:12/24/2024 09:36:04 AM Interpretation: Performing Lab:[address] [address] Notes/Report: Bilirubin Total 0.9 0.0-1.0 mg/dL N Bilirubin Direct 0.4 0.0-0.5 mg/dL N Aspartate Amino Transferase 133 5-37 U/L H Alanine Aminotransferase 53 0-40 U/L H Total Protein 7.7 6.5-8.0 g/dL N Albumin Level 3.0 3.5-5.0 g/dL L Alkaline Phosphatase 154 39-117 U/L H Prothrombin Time INR Reviewed date:12/24/2024 09:36:13 AM Interpretation: Performing Lab:[address] [address] Notes/Report: Prothrombin Time 17.0 10.9-12.4 SEC H [...] mechanical prosthetic heart valves: 2.5 - 3.5 Complete Blood Count Auto Di ff Reviewed date:12/24/2024 09:36:31 AM Interpretation: Performing Lab:[address] [address] Notes/Report: White Blood Count 9.6 4.8-10.8 X10*3/uL [...] NRBC Abs Auto 0.000 0.0-0.012 X10*3/uL N CT abdomen pelvis w con Reviewed date:04/22/2025 05:03:55 PM Interpretation: Performing Lab: Notes/Report: [place] [address] [address] Scan Report Signed Patient: Chato Dickinson MR#: M [id number] : 1995 Acct:[id number] Age/Sex: 29 / M ADM Date: 04/22/25 Loc: HO.CT Attending Dr: Syed Eisenberg MD Ordering Physician: Syed Eisenberg MD Date of Service: 04/22/25 Procedure(s): CT abdomen pelvis w IV con Accession Number(s): [id number] cc: Radha Bravo; Syed Eisenberg MD Report Number: [id number]: Total DLP = 908.00 mGy-cm Reason for [...] 04/22/25 1554 DD/ 1503 TD/TT: 04/22/25 1535 Restaurant Delivery Driver: Reason For Referral Reason abdominal pain Referring Provider First Name Radha Referring Provider Last Name Mercer Referred Organization [facility] Referred Provider Syed Eisenberg Referred Address [address] [facility] [address],[place], [place],[address],[place] Referred Provider Specialty Gastroentero logy Referral Priority Routine Problems Problem Type SNOMED Code ICD Code Onset Dates Problem Status W/U Status Risk Notes Problem Pancreatitis (33722864) Pancreatitis (K85.90) Active confirmed Problem Pancreatic pseudocyst (843087663) Pancreatic pseudocyst (K86.3) Active confirmed Encounters Encounter Location Date Provider Diagnosis [facility] [address] [place] [address] 01/09/2025 Syed Eisenberg Pancreatitis K85.90 and Pancreatic pseudocyst K86.3 [facility] [address] [place] [phone] 02/27/2025 Seyd Eisenberg [facility] [address] [place] [address] 03/12/2025 Syed Eisenberg Pancreatitis K85.90 and Pancreatic pseudocyst K86.3 [facility] [address] [place] [address] 03/13/2025 Syed Eisenberg [facility] [address] [place] [phone] 04/22/2025 Syed Eisenberg Assessments Encounter Date Diagnosis [...] Provider Name:Syed Eisenberg , 07/08/2025 03:00:00 PM, [address] [place] [address], [address], [place], [address], Insurance Providers Payer Name Payer Address Payer Phone Subscriber Number Group Number Insured Name Patient Relationship to Insured Coverage Start Date Coverage End Date [employer] [facility] [address] [place] [phone] [id number] CHATO DICKINSON Self - patient is the insured
== END 2025-06-25 12:01 | disposition home or self-care (01) ==
LOC: HO.HOS 10:47
DX: M20.012 Mallet finger of left finger(s) (principal); S62.627A Displaced fracture of middle phalanx of left little finger, initial encounter for closed fracture
CPT/HCPCS: 99213

== ENCOUNTER → 2025-06-25 10:57 | Outpatient (BNV) | payer MEDICAID, SELFPAY | PROVIDERS: Visit Provider Radiology Diagnostic Radiology | DX: M79.642 Pain in left hand (principal) | CPT/HCPCS: 73130 ==